=== PATIENT | female | born 1955 | race Caucasian/White ===

== ENCOUNTER 2016-10-25 12:06 | Inpatient (IN) | payer OTHER ==
[2016-10-22 14:54] VITALS: BP 93/66; PULSE 82; TEMP 36.7; O2SAT 93
[~2016-10-25] VITALS: Ht 162.6 cm; Wt 64.0 kg
[~2016-10-25 12:06] MED LIST: ALBU1AER9 INH; FRRS300 PO; NITR1CAP32 PO; NRN100 PO; ONDA4TAB46 PO; PRT/20 PO
[2016-10-25] MEDS ORDERED: SODIUM CHLORIDE 0.9% 1000ML 1,000 ML IV STA ×2 (12:37→14:05)
[2016-10-25] MEDS ORDERED: CITA20TA9 PO (12:59)
[2016-10-25 13:05] LABS: BASO % 0.3 %; BASO ABS # 0.03 K/uL (0-0.2); COMPLETE YES; EOS % 0.9 %; HEMATOCRIT 33.8 % (37-47); IG% 0.2 %; LYMPH % 18.8 %; LYMPH ABS # 1.95 K/uL (1.2-3.4); MEAN CELL VOLUME 94.9 fL (80-100); MEAN CORPUSCULAR HEMOGLOBIN 29.5 pg (25-34); MEAN CORPUSCULAR HGB CONC 31.1 g/dl (32-36); MEAN PLATELET VOLUME 9.7 fL (7.4-10.4); NEUT % 66.8 %; PLATELET COUNT 336 K/uL (130-400); RED BLOOD COUNT 3.56 M/uL (4.2-5.4); WHITE BLOOD COUNT 10.36 K/uL (4.8-10.8)
--- NOTE | 2016-10-25 13:07 | EMERGENCY ROOM VISIT NOTE ---
History Report prepared by Merrill: Kelley Cunha Under the Supervision of: Dr. Xuan Enriquez D.O. First contact with patient: 12:20 Chief Complaint: HYPOTENSION Stated Complaint: LOW BLOOD PRESSURE-SENT IN FROM 'S OFFICE History of Present Illness The patient is a 61 year old female who presents to the Emergency Room with complaints of constant hypotension beginning GARNETTER. The patient has not been feeling well for the past month. She developed sinus congestion and drainage about a month ago. She had mucus draining down the back of her throat. For the past couple of weeks and she has been nauseated and vomiting. She is now dry heaving and sensitive to the smell of certain foods. She has been dizzy for the past couple of days. The patient had a routine appointment with her neurologist today. They took her blood pressure in the office and it was 80/50, so the patient was sent to the ED for further evaluation. The patient states that she has been trying to stay hydrated. She reports diffuse abdominal pain and bloating. The patient rates her pain as an 8/10 in severity. She has followed up with her PCP in the past for abdominal bloating. She had x-rays and states that her PCP told her that her stomach was enlarged. She had both an endoscopy and a colonoscopy that were reported to her as normal. She had a small bowel movement yesterday morning. She denies any blood. Pt denies headache, change in vision, fevers, chest pain, shortness of breath, diarrhea, pain with urination, and melena. Source of History: patient Onset: GARNETTER Position: other (global) Symptom Intensity: BP 80/50 Quality: other (hypotension) Timing: constant Associated Symptoms: + nausea, + vomiting, + abdominal pain, No fevers, No headache, No chest pain, No SOB, No melena, No hematochezia, No diarrhea, No urinary symptoms Review of Systems See HPI for pertinent positives & negatives. A total of 10 systems reviewed and were otherwise negative. Past Medical & Surgical Medical Problems: (1) Abdominal pain (2) Alcohol abuse (3) Anemia (4) COPD, moderate (5) Depression (6) Fatty liver (7) H/O needle biopsy (8) Hepatitis B (9) Hepatitis C, chronic (10) History of seizures (11) Ileus (12) Tuberculosis Surgical Problems: (1) H/O exploratory laparotomy (2) History of appendectomy (3) History of tubal ligation Family History Patient reports no known family medical history. Social History Smoking Status: Current Every Day Smoker Alcohol Use: heavy Drug Use: none Marital Status: in relationship Housing Status: lives with family Occupation Status: unemployed Current/Historical Medications Scheduled Gabapentin (Neurontin), 300 MG PO TID Hyoscyamine Sulfate (Levsin), 0.125 MG PO QID Scheduled PRN Albuterol Hfa (Ventolin Hfa), 2 PUFFS INH Q4 PRN for SOB/Wheezing Allergies Coded Allergies: No Known Allergies (Unverified , 02/05/16) Physical Exam Vital Signs Date Time Temp Pulse Resp B/P (MAP) Pulse Ox O2 Delivery O2 Flow Rate FiO2 10/25/16 20:06 95 99 10/25/16 20:01 92 27 102/68 97 10/25/16 19:56 92 24 97 10/25/16 19:51 91 24 95 10/25/16 19:46 91 26 96 10/25/16 19:41 90 27 94 10/25/16 19:36 88 23 94 10/25/16 19:31 89 25 90/63 95 10/25/16 19:26 89 25 95 10/25/16 19:21 89 24 95 10/25/16 19:16 90 25 95 10/25/16 19:11 89 25 96 10/25/16 19:06 90 28 96 10/25/16 19:01 91 28 95/64 97 10/25/16 18:56 93 26 96 10/25/16 18:51 93 24 96 10/25/16 18:46 94 27 96 10/25/16 18:41 97 23 97 10/25/16 18:36 102 25 98 10/25/16 18:31 96 22 101/78 97 10/25/16 18:26 97 31 97 10/25/16 18:21 99 27 98 10/25/16 18:16 98 26 98 10/25/16 18:11 97 21 97 10/25/16 18:08 98 98 10/25/16 18:06 101 21 97 10/25/16 18:01 106/78 10/25/16 17:50 93 10/25/16 17:41 96 20 10/25/16 17:31 105/89 10/25/16 17:11 94 26 98 10/25/16 17:01 105/70 10/25/16 17:00 95 16 105/70 97 Room Air 10/25/16 17:00 104/72 10/25/16 16:41 99 97 10/25/16 16:01 106/59 10/25/16 15:41 103 24 95 10/25/16 15:36 102 26 95 10/25/16 15:31 105/72 10/25/16 15:13 106/63 10/25/16 15:12 103 18 106/63 95 Room Air 10/25/16 15:06 104 24 95 10/25/16 14:50 111/70 10/25/16 14:36 104 26 92 10/25/16 14:06 103 26 96 10/25/16 13:43 105 10/25/16 13:36 105 33 10/25/16 13:06 109 24 10/25/16 12:36 108 24 10/25/16 12:23 106 10/25/16 12:23 102/71 10/25/16 12:22 109 102/71 10/25/16 12:11 37.0 114 20 97/62 99 Room Air Physical Exam GENERAL: alert, well appearing, well nourished, no distress, non-toxic EYE EXAM: normal conjunctiva, PERRL and EOM's grossly intact OROPHARYNX: no exudate, no erythema, lips, buccal mucosa, and tongue normal and mucous membranes are dry NECK: supple, no nuchal rigidity, no adenopathy, non-tender LUNGS: Clear to auscultation. Normal chest wall mechanics HEART: no murmurs, S1 normal and S2 normal ABDOMEN: abdomen soft, distended and diffusely tender, normo-active bowel sounds , no masses, no rebound or guarding. BACK: Back is symmetrical on inspection and there is no deformity, no midline tenderness, no CVA tenderness. SKIN: Pale, no rashes and no bruising UPPER EXTREMITIES: upper extremities are grossly normal. LOWER EXTREMITIES: No pitting edema. NEURO EXAM: Normal sensorium, cranial nerves II-XII grossly intact, normal speech, no gross weakness of arms, no gross weakness of legs. Medical Decision & Procedures ER Provider Diagnostic Interpretation: Radiology results have been interpreted by the radiologist and reviewed by me. CT OF THE ABDOMEN AND PELVIS WITH CONTRAST CLINICAL HISTORY: Abdominal pain and vomiting. COMPARISON STUDY: KUB February 08, 2016. TECHNIQUE: Following IV administration of 92 mL of Optiray-320, axial images of the abdomen and pelvis were obtained from the lung bases to the proximal femurs. Images were reviewed in the axial, sagittal, and coronal planes. IV contrast was administered without complication. CT DOSE: 271.13 mGy.cm FINDINGS: The liver is markedly abnormal in appearance. Specifically, the liver is mildly enlarged with marked fatty infiltration. The lateral segment is enlarged. There is fissural widening. Note is made of numerous wedge-shaped and linear areas of increased attenuation predominantly within the right hepatic lobe, several of which demonstrate capsular retraction. An index segment 5/6 focus measures 6.2 x 4.2 cm. An index segment 7 lesion measures 5.5 cm. The main, left and right portal veins are patent. There is a small amount of abdominal and pelvic ascites. There is no biliary or pancreatic ductal dilatation. The spleen, adrenal glands and kidneys are normal. There is no evidence for a bowel obstruction. There is mild wall thickening of the cecum and ascending colon. The appendix is not visualized. There is no lymphadenopathy. There is moderate atherosclerotic plaque within the abdominal aorta. No pneumatosis, free air or portal venous gas is present. There are no suspicious osseous lesions. IMPRESSION: 1. Marked fatty infiltration and parenchymal distortion of the liver consistent with cirrhosis. Numerous band-like and wedge-shaped areas of increased attenuation predominantly within the right hepatic lobe, several of which demonstrate capsular retraction. Differential considerations include a benign etiology such as confluent hepatic fibrosis as well as an infiltrative primary liver malignancy such as cholangiocarcinoma or less likely hepatocellular carcinoma. An MRI of the liver may be of benefit in further characterization. 2. Small amount of abdominal and pelvic ascites. 3. Mild wall thickening of the cecum and adjacent colon which could be due to portal hypertension or represent a nonspecific colitis. 4. Several loops of mildly dilated small bowel. No evidence for small bowel obstruction. Electronically signed by: Kvng Hernandez M.D. 10/25/2016 4:46 PM Dictated Date/Time: 10/25/2016 4:20 PM Laboratory Results Test 10/25/16 12:40 10/25/16 13:38 10/25/16 16:30 Immature Granulocyte % (Auto) 0.2 % White Blood Count 10.36 K/uL (4.8-10.8) Red Blood Count 3.56 M/uL (4.2-5.4) Hemoglobin 10.5 g/dL (12.0-16.0) Hematocrit 33.8 % (37-47) Mean Corpuscular Volume 94.9 fL (80-100) Mean Corpuscular Hemoglobin 29.5 pg (25-34) Mean Corpuscular Hemoglobin Concent 31.1 g/dl (32-36) Platelet Count 336 K/uL (130-400) Mean Platelet Volume 9.7 fL (7.4-10.4) Neutrophils (%) (Auto) 66.8 % Lymphocytes (%) (Auto) 18.8 % Monocytes (%) (Auto) 13.0 % Eosinophils (%) (Auto) 0.9 % Basophils (%) (Auto) 0.3 % Neutrophils # (Auto) 6.92 K/uL (1.4-6.5) Lymphocytes # (Auto) 1.95 K/uL (1.2-3.4) Monocytes # (Auto) 1.35 K/uL (0.11-0.59) Eosinophils # (Auto) 0.09 K/uL (0-0.5) Basophils # (Auto) 0.03 K/uL (0-0.2) Immature Granulocyte # (Auto) 0.02 K/uL (0.00-0.02) Troponin I < 0.015 ng/ml (0-0.045) Lipase 69 U/L (73-393) Chemistry Specimen Hemolysis Ethyl Alcohol mg/dL < 3.0 mg/dl (0-3) Urine Color YELLOW Urine Appearance CLEAR (CLEAR) Urine pH 8.5 (4.5-7.5) Urine Specific [place] 1.019 (1.000-1.030) Urine Protein NEG (NEG) Urine Glucose (UA) NEG (NEG) Urine Ketones NEG (NEG) Urine Occult Blood NEG (NEG) Urine Nitrite NEG (NEG) Urine Bilirubin NEG (NEG) Urine Urobilinogen POS (NEG) Urine Leukocyte Esterase SMALL (NEG) Urine WBC (Auto) 1-5 /hpf (0-5) Urine RBC (Auto) 0-4 /hpf (0-4) Urine Hyaline Casts (Auto) 0 /lpf (0-5) Urine Epithelial Cells (Auto) 10-20 /lpf (0-5) Urine Bacteria (Auto) NEG (NEG) Laboratory results per my review. Medications Administered Medications (Trade) Dose Ordered Sig/Shelby Route Start Time Stop Time Status Last Admin Dose Admin Sodium Chloride 1,000 ml @ 999 mls/hr Q1H1M STAT IV 10/25/16 12:37 10/25/16 13:37 DC 10/25/16 12:47 999 MLS/HR Sodium Chloride 1,000 ml @ 999 mls/hr Q1H1M STAT IV 10/25/16 14:05 10/25/16 15:05 DC 10/25/16 14:24 999 MLS/HR Magnesium Sulfate (Magnesium Sulfate) 2 gm NOW STAT IV 10/25/16 14:15 10/25/16 14:18 DC 10/25/16 14:15 2 GM Multivitamins 10 ml/Thiamine HCl 100 mg/Folic Acid 1 mg/Sodium Chloride 1,011.2 ml @ 500 mls/ hr Q2H2M ONCE IV 10/25/16 18:30 10/25/16 20:31 DC 10/25/16 18:42 500 MLS/HR Morphine Sulfate (MoRPHine SULFATE INJ) 4 mg NOW STAT IV 10/25/16 18:23 10/25/16 18:25 DC 10/25/16 18:33 4 MG ECG Indication: weakness Rate (beats per minute): 107 Rhythm: sinus tachycardia Findings: T-wave inversion, no acute ischemic change, other (normal axis, normal intervals, low voltage throughout) ED Course 1220: The patient was evaluated in room A3. A complete history and physical exam was performed. 1237: NSS 1000 ml @ 999 mls/hr IV 1405: NSS 1000 ml @ 999 mls/hr IV 1415: Magnesium sulfate 2 gm IV 1449: I reassessed the patient. Her blood pressure is stable, but she is still slightly tachycardic at 108. I updated her on her results. 181: I reassessed the patient at this time. I discussed the results and treatment plan with the patient. I answered all pertaining questions that she had. She expressed understanding and verbalized agreement. 1823: Morphine sulfate 4 mg IV 1830: Multivitamins 10 ml/Thiamine HCl 100 mg/Folic Acid 1 mg/Sodium Chloride 1011.2 ml @ 500 mls/hr IV 190: I spoke with Belle Burger PA-C. We discussed the patients results and treatment plan. The patient will be evaluated by the [facility] for further management. Medical Decision Differential diagnoses includes but is not limited to gastritis, peptic ulcer disease, GERD, gallbladder disease, pancreatitis, small bowel obstruction, acute coronary syndrome, pericarditis, ischemic bowel, irritable bowel disease, irritable bowel syndrome, appendicitis, diverticulitis, malignancy, hernia, urinary tract infection, torsion, perforation, trauma, infectious. Medication Reconciliation: I attest that I have personally reviewed the patient' s current medication list. Patient with progressively worsening symptoms over the course of the last month. No acute infectious etiology found. Patient found as an outpatient today to be hypotensive at her routine neurology visit for her peripheral neuropathy, which is likely related to her history of alcohol abuse. Patient lives to continued daily drinking but states she has cut back. No evidence of acute alcohol withdrawal in the emergency room. Patient's hypotension and tachycardia improved with 2 L of IV fluids. Patient with persistent abdominal pain and CT scan ordered. Abnormal liver morphology noted and given persistent pain as well as risk, patient admitted for additional evaluation and monitoring. Additional fluids and banana bag were started. No evidence of bacteremia/sepsis, mesenteric ischemia, perforation, vascular etiology. Patient 's anemia stable compared to prior. Patient with hypomagnesemia repleted with IV magnesium in the emergency department. Patient with recent poor by mouth intake, and and clinically dehydrated, likely the reason for her hypotension and tachycardia especially if patient has continued alcohol abuse. Concern patient will need monitoring of her blood counts as she may be falsely normal if she is volume depleted at this time, patient also needs monitoring for risk of acute alcohol withdrawal. No evidence of DTs, no seizure-like activity noted patient denies any history of either. Doubt ACS, tamponade, effusion, PE , dissection. Consults Time Called: 1854 Consulting Physician: Belle Burger PA-C Returned Call: 1900 I spoke with Belle Burger PA-C. We discussed the patients results and treatment plan. The patient will be evaluated by the [facility] for further management. Impression Primary Impression: Hypotension Additional Impressions: Diffuse abdominal pain Alcohol abuse Elevated bilirubin Hypomagnesemia Scribe Attestation The scribe's documentation has been prepared under my direction and personally reviewed by me in its entirety. I confirm that the note above accurately reflects all work, treatment, procedures, and medical decision making performed by me. Departure Information Dispostion Being Evaluated By Hospitalist Referrals No Doctor, Assigned (PCP) Patient Instructions My [facility] Problem Qualifiers Primary Impression: Hypotension Hypotension type: unspecified hypotension type Qualified Codes: I95.9 - Hypotension, unspecified
[2016-10-25 13:30] LABS: ALB/GLOB RATIO 0.6 (0.9-2); ALKALINE PHOSPHATASE 178 U/L (45-117); ALT/SGPT 16 U/L (12-78); AST/SGOT 107 U/L (15-37); BLOOD UREA NITROGEN 6 mg/dl (7-18); BUN/CREATININE RATIO 12.5 (10-20); CALCIUM 8.3 mg/dl (8.5-10.1); CARBON DIOXIDE 26 mmol/L (21-32); CHLORIDE 99 mmol/L (98-107); CREATININE 0.51 mg/dl (0.60-1.20); GLUCOSE 88 mg/dl (70-99); MAGNESIUM 1.3 mg/dl (1.8-2.4); POTASSIUM 3.5 mmol/L (3.5-5.1); SODIUM 137 mmol/L (136-145)
[2016-10-25] MEDS ORDERED: MAGNESIUM SULFATE 1GM / D5W 1 GM BAG IV STA (14:15)
[2016-10-25] MEDS ORDERED: OPTIRAY 320 IV PRN (14:30)
--- NOTE | 2016-10-25 16:47 | DIAGNOSTIC IMAGING REPORT ---
CT OF THE ABDOMEN AND PELVIS WITH CONTRAST CLINICAL HISTORY: Abdominal pain and vomiting. COMPARISON STUDY: KUB February 08, 2016. TECHNIQUE: Following IV administration of 92 mL of Optiray-320, axial images of the abdomen and pelvis were obtained from the lung bases to the proximal femurs. Images were reviewed in the axial, sagittal, and coronal planes. IV contrast was administered without complication. CT DOSE: 271.13 mGy.cm FINDINGS: The liver is markedly abnormal in appearance. Specifically, the liver is mildly enlarged with marked fatty infiltration. The lateral segment is enlarged. There is fissural widening. Note is made of numerous wedge-shaped and linear areas of increased attenuation predominantly within the right hepatic lobe, several of which demonstrate capsular retraction. An index segment 5/6 focus measures 6.2 x 4.2 cm. An index segment 7 lesion measures 5.5 cm. The main, left and right portal veins are patent. There is a small amount of abdominal and pelvic ascites. There is no biliary or pancreatic ductal dilatation. The spleen, adrenal glands and kidneys are normal. There is no evidence for a bowel obstruction. There is mild wall thickening of the cecum and ascending colon. The appendix is not visualized. There is no lymphadenopathy. There is moderate atherosclerotic plaque within the abdominal aorta. No pneumatosis, free air or portal venous gas is present. There are no suspicious osseous lesions. IMPRESSION: 1. Marked fatty infiltration and parenchymal distortion of the liver consistent with cirrhosis. Numerous band-like and wedge-shaped areas of increased attenuation predominantly within the right hepatic lobe, several of which demonstrate capsular retraction. Differential considerations include a benign etiology such as confluent hepatic fibrosis as well as an infiltrative primary liver malignancy such as cholangiocarcinoma or less likely hepatocellular carcinoma. An MRI of the liver may be of benefit in further characterization. 2. Small amount of abdominal and pelvic ascites. 3. Mild wall thickening of the cecum and adjacent colon which could be due to portal hypertension or represent a nonspecific colitis. 4. Several loops of mildly dilated small bowel. No evidence for small bowel obstruction. Electronically signed by: Kvng Hernandez M.D. 10/25/2016 4:46 PM Dictated Date/Time: 10/25/2016 4:20 PM
[2016-10-25 16:51] LABS: URINE APPEARANCE CLEAR (CLEAR); URINE BILIRUBIN NEG (NEG); URINE COLOR YELLOW; URINE NITRITE NEG (NEG); URINE PH 8.5 (4.5-7.5); URINE SPECIFIC GRAVITY 1.019 (1.000-1.030); UROBILINOGEN POS (NEG); ZZUR CULT IF INDIC CLEAN CATCH NO
[2016-10-25 16:53] LABS: MANUAL MICROSCOPIC REQUIRED? NO; REVIEW REQ? NO
[2016-10-25] MEDS ORDERED: MoRPHine SULFATE 4 MG/ML 1 ML CARP\\VIAL IV STA (18:23)
[2016-10-25] MEDS ORDERED: MULTI-VITAMIN INFUSION INJ 10 ML, THIAMINE HCL INJ 100 MG, FoLIC ACID INJ 1 MG in SODIU... IV ONE (18:30)
[2016-10-25] MEDS ORDERED: ACETAMINOPHEN 325 MG TAB PO PRN (20:30)
[2016-10-25] MEDS ORDERED: ONDANSETRON INJ 2 MG/ML 2 ML VIAL IV PRN (20:30)
[2016-10-25] MEDS ORDERED: ALBUTEROL HFA 8 GM INHALER INH PRN (20:45)
[2016-10-25 21:15] VITALS: BP 108/73; PULSE 92; TEMP 36.9; O2SAT 94; Ht 162.6 cm; Wt 64.0 kg
[2016-10-25] MEDS ORDERED: PATIENT'S HEIGHT AND/OR WEIGHT NEEDED SCH (21:30)
[2016-10-25] MEDS ORDERED: GABAPENTIN 600 MG TAB PO STA (21:31)
[2016-10-25] MEDS: SODIUM CHLORIDE 0.9% 1000ML 1,000 ML IV SCH (21:46)
[2016-10-25] MEDS: HYOSCYAMINE SULFATE 0.125 MG SL TAB PO SCH (22:23)
[2016-10-25] MEDS: CHLORDIAZEPOXIDE 10 MG CAP PO SCH (22:23)
[2016-10-25] MEDS: THIAMINE HCL 100 MG TAB PO SCH (22:23)
[2016-10-25] MEDS: NICOTINE 14 MG/24 HR TDSY TD SCH (22:24)
[2016-10-25] MEDS ORDERED: MoRPHine SULFATE 2 MG/ML CARP IV PRN (22:30)
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
[2016-10-26 00:05] LABS: INR 1.1 (0.9-1.1); PROTHROMBIN TIME (PATIENT) 12.1 SECONDS (9.0-12.0)
[2016-10-26] MEDS: GABAPENTIN 600MG Q6H DOSE PO SCH ×2 (03:34→11:07)
[2016-10-26 03:50] VITALS: BP 112/58; PULSE 92; TEMP 36.7; O2SAT 94
[2016-10-26 06:07] LABS: RED BLOOD COUNT 2.98 M/uL (4.2-5.4); WHITE BLOOD COUNT 9.48 K/uL (4.8-10.8)
[2016-10-26 06:08] LABS: HEMATOCRIT 28.5 % (37-47); MEAN CELL VOLUME 95.6 fL (80-100); MEAN CORPUSCULAR HEMOGLOBIN 28.9 pg (25-34); MEAN CORPUSCULAR HGB CONC 30.2 g/dl (32-36); MEAN PLATELET VOLUME 9.5 fL (7.4-10.4); PLATELET COUNT 268 K/uL (130-400)
[2016-10-26 06:49] LABS: ALB/GLOB RATIO 0.7 (0.9-2); ALKALINE PHOSPHATASE 142 U/L (45-117); ALT/SGPT 13 U/L (12-78); AST/SGOT 74 U/L (15-37); BLOOD UREA NITROGEN 6 mg/dl (7-18); BUN/CREATININE RATIO 23.4 (10-20); CARBON DIOXIDE 27 mmol/L (21-32); CHLORIDE 109 mmol/L (98-107); CREATININE 0.24 mg/dl (0.60-1.20); GLUCOSE 62 mg/dl (70-99); MAGNESIUM 1.7 mg/dl (1.8-2.4); POTASSIUM 3.2 mmol/L (3.5-5.1); SODIUM 144 mmol/L (136-145)
[2016-10-26 07:11] VITALS: BP 102/68; PULSE 97; TEMP 37.3; O2SAT 94
[2016-10-26] MEDS ORDERED: PNEUMOCOCCAL POLYSACCHARIDES 25 MCG/0.5 ML VIAL/SYR IM. ONE (08:00)
[2016-10-26] MEDS ORDERED: PNEUMOCOCCAL ADMINISTRATION CHARGE ONE (08:00)
[2016-10-26] MEDS: SODIUM CHLORIDE 0.9% 1000ML 1,000 ML IV SCH ×2 (08:00→22:04)
[2016-10-26] MEDS: HYOSCYAMINE SULFATE 0.125 MG SL TAB PO SCH ×4 (08:00→21:13)
[2016-10-26] MEDS: CHLORDIAZEPOXIDE 10 MG CAP PO SCH ×2 (08:05→21:13)
[2016-10-26] MEDS ORDERED: ENOXAPARIN 40 MG/0.4 ML SYR SC SCH (09:00)
[2016-10-26] MEDS ORDERED: POTASSIUM CHLORIDE 10 MEQ TABCR PO STA (10:27)
[2016-10-26] MEDS ORDERED: MAGNESIUM SULFATE 1GM / D5W 1 GM in PREMIXED IN D5W 100 ML IV SCH (11:00)
[2016-10-26] MEDS: KETOROLAC TROMETHAMINE 30 MG/ML VIAL IV PRN ×2 (11:15→23:26)
[2016-10-26 11:19] VITALS: BP 102/68; PULSE 90; TEMP 36.9; O2SAT 95
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
--- NOTE | 2016-10-26 16:31 | Progress Note ---
Internal Med Progress Note Date of Service: Oct 26, 2016. Provider Documentation: SUBJECTIVE: complains of pain and discomfort in her abdomen no complain of nausea -wants to know if diet could be advanced no sign of alcohol withdrawal no tremors , denies of being anxious OBJECTIVE: Vital Signs-as noted below Exam: General-no sign of distress ENT-NAD Neck-no JVD Lungs-CTA Heart-regular S1/s2 Abdomen-prior healed surgical scar in lower abdomen, + distention /minimum ascites , active bowel sound Extremities- no lower ext edema Neuro-no focal neurological deficit Lab data as noted below. ASSESSMENT & PLAN: HYPOTENSION BP improved with IV fluids Likely due to hypovolemia from poor PO intake, N/V Monitor orthostatic vitals Fall precautions for orthostatic dizziness Monitor in telemetry CHRONIC ALCOHOL ABUSE: ordered for Ativan /Neurontin/Librium as per Alcohol withdrawal protocol no overt s/s of DT Daily thiamine supplement monitor clinically ABDOMINAL PAIN, NAUSEA/ VOMITING CT a/p- findings of cirrhosis, multiple liver lesions ? benign vs. malignancy- MRI liver ordered Known chronic hepatitis C, hx hepatitis B, fatty liver, prior liver bx 2003- moderate to severe steatosis, mild chronic periportal inflammation and minimal lobular inflammation appreciate GI eval tumor marker AFP ordered HYPOMAGNESEMIA due to chronic alcohol abuse Replace and monitor ELEVATED LACTIC ACID Lactic acid 2.4 elevated Lactic acid could be secondary to alcohol abuse /hypotension no evidence of sepsis IVF repeat lactic acid level to see improvement ANEMIA Hx iron deficiency anemia Hg is stable will D/c Lovenox Monitor CBC COPD Not in acute exacerbation Continue home inhaler TOBACCO ABUSE Nicotine patch ordered Cessation counselling once she is feeling better DEPRESSION Currently not on medication Denies suicidal ideation Follow up as outpatient DVT PROPHYLAXIS Lovenox D/mayelin for anemia SCD and teds ambulate FULL CODE DISPOSITION discharge home when medically stable Medicine follow up with Dr Khanna Vital Signs: Date Time Temp Pulse Resp B/P (MAP) Pulse Ox O2 Delivery O2 Flow Rate FiO2 10/26/16 12:00 Room Air 10/26/16 11:19 36.9 90 18 102/68 (79) 95 Room Air 10/26/16 08:00 Room Air 10/26/16 07:11 37.3 97 18 102/68 (79) 94 Room Air 10/26/16 04:00 Room Air 94 10/26/16 03:50 36.7 92 20 112/58 (76) 94 Room Air 10/25/16 23:59 Room Air 10/25/16 21:15 36.9 92 18 108/73 94 Room Air 10/25/16 20:31 98/68 10/25/16 20:06 95 99 10/25/16 20:01 92 27 102/68 97 10/25/16 19:56 92 24 97 10/25/16 19:51 91 24 95 10/25/16 19:46 91 26 96 10/25/16 19:41 90 27 94 10/25/16 19:36 88 23 94 10/25/16 19:31 89 25 90/63 95 10/25/16 19:26 89 25 95 10/25/16 19:21 89 24 95 10/25/16 19:16 90 25 95 10/25/16 19:11 89 25 96 10/25/16 19:06 90 28 96 10/25/16 19:01 91 28 95/64 97 10/25/16 18:56 93 26 96 10/25/16 18:51 93 24 96 10/25/16 18:46 94 27 96 10/25/16 18:41 97 23 97 10/25/16 18:36 102 25 98 10/25/16 18:31 96 22 101/78 97 10/25/16 18:26 97 31 97 10/25/16 18:21 99 27 98 10/25/16 18:16 98 26 98 10/25/16 18:11 97 21 97 10/25/16 18:08 98 98 10/25/16 18:06 101 21 97 10/25/16 18:01 106/78 10/25/16 17:50 93 10/25/16 17:41 96 20 10/25/16 17:31 105/89 10/25/16 17:11 94 26 98 10/25/16 17:01 105/70 10/25/16 17:00 95 16 105/70 97 Room Air 10/25/16 17:00 104/72 10/25/16 16:41 99 97 Lab Results: Results Past 24 Hours Test 10/25/16 23:44 10/26/16 05:23 10/26/16 11:40 Range/Units Prothrombin Time 12.1 9.0-12.0 SECONDS Prothromb Time International Ratio 1.1 0.9-1.1 Activated Partial Thromboplast Time 26.6 21.0-31.0 SECONDS Partial Thromboplastin Ratio 1.0 Lactic Acid Level 2.2 0.4-2.0 mmol/L Magnesium Level 1.8 1.7 1.8-2.4 mg/dl Vitamin B12 Level 500 211-911 pg/mL Folate > 24.00 >5.38 ng/mL White Blood Count 9.48 4.8-10.8 K/uL Red Blood Count 2.98 4.2-5.4 M/uL Hemoglobin 8.6 12.0-16.0 g/dL Hematocrit 28.5 37-47 % Mean Corpuscular Volume 95.6 80-100 fL Mean Corpuscular Hemoglobin 28.9 25-34 pg Mean Corpuscular Hemoglobin Concent 30.2 32-36 g/dl RDW Standard Deviation 70.5 36.4-46.3 fL RDW Coefficient of Variation 20.3 11.5-14.5 % Platelet Count 268 130-400 K/uL Mean Platelet Volume 9.5 7.4-10.4 fL Nucleated RBC Absolute Count (auto) 0.03 0-0 K/uL Nucleated Red Blood Cells % 0.3 % Sodium Level 144 136-145 mmol/L Potassium Level 3.2 3.5-5.1 mmol/L Chloride Level 109 98-107 mmol/L Carbon Dioxide Level 27 21-32 mmol/L Anion Gap 8.0 3-11 mmol/L Blood Urea Nitrogen 6 7-18 mg/dl Creatinine 0.24 0.60-1.20 mg/dl Est Creatinine Clear Calc Drug Dose 215.4 ml/min Estimated GFR () > 150.0 Estimated GFR (Non- 133.9 BUN/Creatinine Ratio 23.4 10-20 Random Glucose 62 70-99 mg/dl Calcium Level 7.0 8.5-10.1 mg/dl Total Bilirubin 1.4 0.2-1 mg/dl Aspartate Amino Transf (AST/SGOT) 74 15-37 U/L Alanine Aminotransferase (ALT/SGPT) 13 12-78 U/L Alkaline Phosphatase 142 45-117 U/L Total Protein 5.3 6.4-8.2 gm/dl Albumin 2.1 3.4-5.0 gm/dl Globulin 3.2 2.5-4.0 gm/dl Albumin/Globulin Ratio 0.7 0.9-2
[2016-10-26] MEDS ORDERED: GADOXETATE DISODIUM (NON-WT BASED PROCEDURE) IV PRN (18:45)
[2016-10-26] MEDS: GABAPENTIN 600MG Q8H DOSE PO SCH (19:01)
[2016-10-26 19:06] VITALS: BP 111/68; PULSE 92; TEMP 36.6; O2SAT 97
--- NOTE | 2016-10-26 19:51 | DIAGNOSTIC IMAGING REPORT ---
MRI LIVER COMBO CLINICAL HISTORY: Abdominal pain and vomiting. Abnormal CT scan. TECHNIQUE: Imaging was performed prior to and following IV contrast injection. 10 cc of intravenous Eovist COMPARISON STUDY: CT scan dated 10/25/2016 FINDINGS: There is a small amount of ascites. There is a small right pleural effusion. There is extensive hepatic steatosis. The bandlike areas of increased T2 signal demonstrate diminished fat compared the remainder of the liver. There is no common bile duct or intrahepatic biliary ductal dilatation. There is borderline narrowing of the right main hepatic duct. No gallbladder abnormalities are visualized. No splenic masses are visualized. No solid renal masses are visualized. There are several areas of capsular retraction within the liver. There are bandlike areas of increased T2 signal throughout the liver. These bandlike areas are increased signal on diffusion-weighted imaging, but also demonstrate increased signal on the ADC map. Dynamic contrast enhanced images demonstrate heterogeneous enhancement of the liver with confluent rounded areas of decreased signal on 20 minute delayed images particularly within the inferior aspect of the right lower lobe. While confluent hepatic fibrosis is strongly favored, an infiltrating liver malignancy such as cholangiocarcinoma cannot be excluded with certainty IMPRESSION: 1. Hepatic steatosis 2. Bandlike areas of increased T2 signal which demonstrate diminished fat compared the remainder the liver. 3. Areas of capsular retraction 4. Increased enhancement of the bandlike areas of increased T2 signal 5. Delayed images demonstrate confluent rounded areas of decreased enhancement, particularly within the inferior aspect of the right lobe of the liver. On in/out of phase imaging, these areas appear to represent areas of hepatic steatosis. 6. While confluent hepatic fibrosis is strongly favored, an infiltrating liver malignancy such as a cholangiocarcinoma cannot be excluded with absolute certainty. 7. Small right pleural effusion. Small amount of ascites. Electronically signed by: Dalton Hassan M.D. 10/26/2016 7:50 PM Dictated Date/Time: 10/26/2016 7:07 PM
[2016-10-26] MEDS: THIAMINE HCL 100 MG TAB PO SCH (21:12)
[2016-10-26 23:15] VITALS: BP 108/66; PULSE 93; TEMP 37; O2SAT 95
[2016-10-27] VITALS (9 sets, daily range): BP systolic 84–118; BP diastolic 57–72; PULSE 65–96; TEMP 36.4–36.9; O2SAT 90–99
[2016-10-27] MEDS: GABAPENTIN 600MG Q8H DOSE PO SCH ×2 (02:10→09:17)
[2016-10-27 05:37] LABS: HEMATOCRIT 28.3 % (37-47); MEAN CELL VOLUME 97.9 fL (80-100); MEAN CORPUSCULAR HEMOGLOBIN 30.1 pg (25-34); MEAN CORPUSCULAR HGB CONC 30.7 g/dl (32-36); MEAN PLATELET VOLUME 9.9 fL (7.4-10.4); PLATELET COUNT 242 K/uL (130-400); RED BLOOD COUNT 2.89 M/uL (4.2-5.4); WHITE BLOOD COUNT 7.63 K/uL (4.8-10.8)
[2016-10-27 06:12] LABS: ALT/SGPT 16 U/L (12-78); AST/SGOT 93 U/L (15-37); BLOOD UREA NITROGEN 6 mg/dl (7-18); BUN/CREATININE RATIO 26.6 (10-20); CALCIUM 7.1 mg/dl (8.5-10.1); CARBON DIOXIDE 24 mmol/L (21-32); CHLORIDE 112 mmol/L (98-107); CREATININE 0.24 mg/dl (0.60-1.20); GLUCOSE 63 mg/dl (70-99); MAGNESIUM 1.8 mg/dl (1.8-2.4); POTASSIUM 3.4 mmol/L (3.5-5.1); SODIUM 144 mmol/L (136-145)
[2016-10-27 06:14] LABS: ALKALINE PHOSPHATASE 152 U/L (45-117)
[2016-10-27] MEDS: HYOSCYAMINE SULFATE 0.125 MG SL TAB PO SCH ×4 (06:41→21:59)
[2016-10-27] MEDS: NICOTINE 14 MG/24 HR TDSY TD SCH (07:42)
[2016-10-27] MEDS: SODIUM CHLORIDE 0.9% 1000ML 1,000 ML IV SCH (07:43)
[2016-10-27] MEDS: CHLORDIAZEPOXIDE 10 MG CAP PO SCH ×2 (07:46→21:58)
--- NOTE | 2016-10-27 09:30 | Gastroenterology Progress Note ---
Progress Note Date of Service: Oct 27, 2016 Subjective Pt evaluation today including: conversation w/ patient, physical exam, chart review, lab review, review of studies, review of inpatient medication list Ms. Masterson is a 61 yr old female admitted for hypotension. She has a long hx if increased alcohol intake and was drinking heavily just prior to admission. Transaminases are elevated with AST much higher than ALT. T bili and Alk Phos at upper end of normal. INR 1.1. Suggestion of fibrosis on liver imaging. No evidence of obstruction. MRI with capsular retraction of the right lobe of the liver and slight narrowing of the right hepatic duct. Today pt tells me that "a few years ago," she fell, had broken ribs that lacerated her liver. She was hospitalized at [place] for about 3 weeks. No surgery required, bleeding stopped. Regarding her symptoms that cause hospitalization, she is much better with IV fluids, eating a low salt diet well, becoming much more alert and articulate.Abdominal pain resolved after passing a large BM. Review of Systems Constitutional: No fever Respiratory: No cough Cardiac: No chest pain Abdomen: No pain, No nausea, No vomiting, No diarrhea, No GI bleeding Female : No dysuria Neuro: No memory loss Psych: No depression symptoms Heme: No abnormal bleeding/bruising Endo: No fatigue Skin: No rash, No jaundice Medications Current Inpatient Medications Medications (Trade) Dose Ordered Sig/Shelby Route Start Time Stop Time Status Last Admin Dose Admin Ioversol (Optiray 320) 100 ml UD PRN IV 10/25/16 14:30 10/29/16 14:29 Acetaminophen (Tylenol Tab) 650 mg Q4H PRN PO 10/25/16 20:30 11/24/16 20:29 Ondansetron HCl (Zofran Inj) 4 mg Q6H PRN IV 10/25/16 20:30 11/24/16 20:29 Sodium Chloride 1,000 ml @ 100 mls/hr Q10H IV 10/25/16 20:30 11/24/16 20:29 10/27/16 07:43 100 MLS/HR Thiamine HCl (Vitamin B-1 Tab) 100 mg Q24H PO 10/25/16 21:00 11/24/16 20:59 10/26/16 21:12 100 MG Chlordiazepoxide (Librium Cap) 10 mg BID PO 10/25/16 21:00 11/24/16 20:59 10/27/16 07:46 10 MG Albuterol (Ventolin Hfa Inhaler) 2 puffs Q4 PRN INH 10/25/16 20:45 11/24/16 20:44 Hyoscyamine Sulfate (Levsin Tab) 0.125 mg ACHS PO 10/25/16 21:00 11/24/16 20:59 10/27/16 06:41 0.125 MG Nicotine (Nicoderm Cq 14MG Patch) 1 patch QAM TD 10/26/16 09:00 11/25/16 08:59 10/27/16 07:42 1 PATCH Miscellaneous (Remove Nicoderm Patch) 1 ea HS N/A 10/26/16 21:00 11/25/16 20:59 10/26/16 21:13 1 EA Gabapentin (Neurontin Tab) 600 mg Q8H PO 10/26/16 18:00 10/27/16 10:01 10/27/16 09:17 600 MG Gabapentin (Neurontin Tab) 600 mg Q12H PO 10/27/16 22:00 10/28/16 10:01 Gabapentin (Neurontin Tab) 600 mg Q24H PO 10/29/16 10:00 10/29/16 10:01 Ketorolac Tromethamine (Toradol Inj) 30 mg Q6H PRN IV 10/25/16 22:30 10/30/16 22:29 10/26/16 23:26 30 MG Gadoxetate Disodium (Eovist (Non-Wt Based Procedure)) 10 ml UD PRN IV 10/26/16 18:45 10/30/16 18:44 Objective Vital Signs Date Time Temp Pulse Resp B/P (MAP) Pulse Ox O2 Delivery O2 Flow Rate FiO2 10/27/16 08:58 96 19 94/64 (74) 99 Room Air 10/27/16 08:55 93 18 94/63 (73) 97 Room Air 10/27/16 08:53 82 18 97/67 (77) 99 Room Air 10/27/16 08:00 Room Air 10/27/16 07:25 36.5 73 22 99/72 (81) 97 Room Air 10/27/16 04:00 Room Air 10/27/16 03:43 36.6 74 19 94/68 (77) 96 Room Air 84 92/62 (72) 92 84/62 (69) 10/26/16 23:59 Room Air 10/26/16 23:15 37.0 93 18 108/66 (80) 95 Room Air 10/26/16 20:00 Room Air 10/26/16 19:06 36.6 92 18 111/68 (82) 97 Room Air 10/26/16 16:00 Room Air 10/26/16 12:00 Room Air 10/26/16 11:19 36.9 90 18 102/68 (79) 95 Room Air Physical Exam General Appearance: no apparent distress ENT: pharynx normal Neck: supple, thyroid normal, no JVD Respiratory/Chest: lungs clear Cardiovascular: regular rate, rhythm, no JVD, no murmur Abdomen: non tender, soft, + distended (minimal) Extremities: non-tender Neurologic/Psych: alert, normal mood/affect, oriented x 3 Skin: no jaundice Laboratory Results Last 24 Hours Test 10/26/16 11:40 10/27/16 05:20 White Blood Count 7.63 K/uL Red Blood Count 2.89 M/uL Hemoglobin 8.7 g/dL Hematocrit 28.3 % Mean Corpuscular Volume 97.9 fL Mean Corpuscular Hemoglobin 30.1 pg Mean Corpuscular Hemoglobin Concent 30.7 g/dl RDW Standard Deviation 73.2 fL RDW Coefficient of Variation 20.4 % Platelet Count 242 K/uL Mean Platelet Volume 9.9 fL Sodium Level 144 mmol/L Potassium Level 3.4 mmol/L Chloride Level 112 mmol/L Carbon Dioxide Level 24 mmol/L Anion Gap 8.0 mmol/L Blood Urea Nitrogen 6 mg/dl Creatinine 0.24 mg/dl Est Creatinine Clear Calc Drug Dose 215.4 ml/min Estimated GFR () > 150.0 Estimated GFR (Non- 133.9 BUN/Creatinine Ratio 26.6 Random Glucose 63 mg/dl Lactic Acid Level 1.4 mmol/L Calcium Level 7.1 mg/dl Magnesium Level 1.8 mg/dl Total Bilirubin 1.4 mg/dl Direct Bilirubin 1.1 mg/dl Aspartate Amino Transf (AST/SGOT) 93 U/L Alanine Aminotransferase (ALT/SGPT) 16 U/L Alkaline Phosphatase 152 U/L Total Protein 5.2 gm/dl Albumin 2.0 gm/dl Assessment and Plan Ms. Masterson is a 61 yr old admitted with hypotension and abdominal pain, both resolved. Her pain was likely caused by constipation and her hypotension by her increased alcohol intake and po intake of nutritious foods and water. Her liver imaging changes are likely due to fatty liver/fibrosis (w/o evidence of cirrhosis) from a long hx of increased alcohol intake as well as prior trauma to the liver. HCV OP serology reviewed. Positive in 1999 but very low viral load (40), then negative several times since then suggesting that she cleared the virus spontaneously. Hep B surface antibody positive suggestive of immunity from vaccination. Plan: 1. Records from [facility] requested. 2. 2 Gram sodium diet. 3. Complete alcohol abstention discussed with the pt. She says she does not plan to drink however, she does not think she needs rehab. When talking about her symptoms, she does not believe that the symptoms that brought her in were related to alcohol intake and when talking with her about a low salt diet, she tells me that she needs salt or she will faint. 4. Will recheck HCV quantitative. 5. Plan for OP GI f/u. Would consider liver bx to definitively r/o hepatic malignancy, after obtaining records regarding liver trauma from [place]. I saw and evalauted the patient. CT / MRI findings likely related to prior blunt trauma to the liver. I would suggest a repeat HCV RNA, MRI in 3 months, Bentyl 10 mg bid and Miralax 17 gm per day. Patient should f/u with her regular GI provider, Dr. Zafar in 3 months.
[2016-10-27] MEDS: KETOROLAC TROMETHAMINE 30 MG/ML VIAL IV PRN ×2 (10:05→22:11)
[2016-10-27 11:54] LABS: AFP TUMOR MARKER SERUM 3.1 NG/ML (<6.1)
[2016-10-27] MEDS ORDERED: POLYETHYLENE (MIRALAX) 17 GM PACK PO ONE (12:20)
--- NOTE | 2016-10-27 14:31 | Progress Note ---
Internal Med Progress Note Date of Service: Oct 27, 2016. Provider Documentation: SUBJECTIVE: complains of gas and abdominal discomfort did not had any bowel movement since admission no nausea tolerating diet well OBJECTIVE: Vital Signs-as noted below Exam: General-no sign of distress ENT-NAD Neck-no JVD Lungs-CTA Heart-regular S1/s2 Abdomen-prior healed surgical scar in lower abdomen, + distention /minimum ascites , active bowel sound Extremities- no lower ext edema Neuro-no focal neurological deficit Lab data as noted below. ASSESSMENT & PLAN: HYPOTENSION possible baseline BP in 90-100 will d/c IVF today no complain of dizzy spell CHRONIC ALCOHOL ABUSE: ordered for Ativan /Neurontin/Librium as per Alcohol withdrawal protocol no overt s/s of DT Daily thiamine supplement monitor clinically pt is counselled repeatedly for alcohol abstinence ABDOMINAL PAIN, NAUSEA/ VOMITING CT a/p- findings of cirrhosis, multiple liver lesions ? benign vs. malignancy- MRI liver : 1. Hepatic steatosis 2. Bandlike areas of increased T2 signal which demonstrate diminished fat compared the remainder the liver. 3. Areas of capsular retraction 4. Increased enhancement of the bandlike areas of increased T2 signal 5. Delayed images demonstrate confluent rounded areas of decreased enhancement, particularly within the inferior aspect of the right lobe of the liver. On in/out of phase imaging, these areas appear to represent areas of hepatic steatosis. 6. While confluent hepatic fibrosis is strongly favored, an infiltrating liver malignancy such as a cholangiocarcinoma cannot be excluded with absolute certainty. 7. Small right pleural effusion. Small amount of ascites. Known chronic hepatitis C, hx hepatitis B, fatty liver, prior liver bx 2003- moderate to severe steatosis, mild chronic periportal inflammation and minimal lobular inflammation appreciate GI eval possible finding in MRI of liver due to old scar for trauma Hep C serology ordered tumor marker AFP ordered stable to be discharged home will need out follow up with GI HYPOMAGNESEMIA due to chronic alcohol abuse Replaced ELEVATED LACTIC ACID resolved, normal level today elevated Lactic acid could be secondary to alcohol abuse /hypotension no evidence of sepsis IVF D/mayelin repeat lactic acid level to see improvement CONSTIPATION /ABDOMINAL DISTENTION Ordered for bowel regimen ANEMIA Hx iron deficiency anemia Hg is stable will D/c Lovenox Monitor CBC COPD Not in acute exacerbation Continue home inhaler TOBACCO ABUSE Nicotine patch ordered Cessation counselling once she is feeling better DEPRESSION Currently not on medication Denies suicidal ideation Follow up as outpatient DVT PROPHYLAXIS Lovenox D/mayelin for anemia SCD and teds ambulate FULL CODE DISPOSITION possible discharge home tomorrow Medicine follow up with Dr Khanna Vital Signs: Date Time Temp Pulse Resp B/P (MAP) Pulse Ox O2 Delivery O2 Flow Rate FiO2 10/27/16 11:47 Room Air 10/27/16 11:25 36.8 88 18 96/57 (70) 96 Room Air 10/27/16 08:58 96 19 94/64 (74) 99 Room Air 10/27/16 08:55 93 18 94/63 (73) 97 Room Air 10/27/16 08:53 82 18 97/67 (77) 99 Room Air 10/27/16 08:00 Room Air 10/27/16 07:25 36.5 73 22 99/72 (81) 97 Room Air 10/27/16 04:00 Room Air 10/27/16 03:43 36.6 74 19 94/68 (77) 96 Room Air 84 92/62 (72) 92 84/62 (69) 10/26/16 23:59 Room Air 10/26/16 23:15 37.0 93 18 108/66 (80) 95 Room Air 10/26/16 20:00 Room Air 10/26/16 19:06 36.6 92 18 111/68 (82) 97 Room Air 10/26/16 16:00 Room Air Lab Results: Results Past 24 Hours Test 10/27/16 05:20 10/27/16 12:20 Range/Units White Blood Count 7.63 4.8-10.8 K/uL Red Blood Count 2.89 4.2-5.4 M/uL Hemoglobin 8.7 12.0-16.0 g/dL Hematocrit 28.3 37-47 % Mean Corpuscular Volume 97.9 80-100 fL Mean Corpuscular Hemoglobin 30.1 25-34 pg Mean Corpuscular Hemoglobin Concent 30.7 32-36 g/dl RDW Standard Deviation 73.2 36.4-46.3 fL RDW Coefficient of Variation 20.4 11.5-14.5 % Platelet Count 242 130-400 K/uL Mean Platelet Volume 9.9 7.4-10.4 fL Sodium Level 144 136-145 mmol/L Potassium Level 3.4 3.5-5.1 mmol/L Chloride Level 112 98-107 mmol/L Carbon Dioxide Level 24 21-32 mmol/L Anion Gap 8.0 3-11 mmol/L Blood Urea Nitrogen 6 7-18 mg/dl Creatinine 0.24 0.60-1.20 mg/dl Est Creatinine Clear Calc Drug Dose 215.4 ml/min Estimated GFR () > 150.0 Estimated GFR (Non- 133.9 BUN/Creatinine Ratio 26.6 10-20 Random Glucose 63 70-99 mg/dl Lactic Acid Level 1.4 0.4-2.0 mmol/L Calcium Level 7.1 8.5-10.1 mg/dl Magnesium Level 1.8 1.8-2.4 mg/dl Total Bilirubin 1.4 0.2-1 mg/dl Direct Bilirubin 1.1 0-0.2 mg/dl Aspartate Amino Transf (AST/SGOT) 93 15-37 U/L Alanine Aminotransferase (ALT/SGPT) 16 12-78 U/L Alkaline Phosphatase 152 45-117 U/L Total Protein 5.2 6.4-8.2 gm/dl Albumin 2.0 3.4-5.0 gm/dl
--- NOTE | 2016-10-27 14:34 | Discharge Instructions ---
Discharge Instructions Date of Service Oct 27, 2016. Admission Reason for Admission: Abdominal Pain, Hypotension Discharge Discharge Diagnosis / Problem: ABDOMINAL PAIN /CHRONIC ALCOHOL ABUSE Discharge Goals Goal(s): Improve disease control, Diagnostic testing Activity Recommendations Activity Limitations: resume your previous activity . Instructions / Follow-Up Instructions / Follow-Up HOSPITAL FOLLOW UP WITH DR QUESADA ON October @ 9: [address] QUESADA GASTROENTEROLOGY FOLLOW UP WITH DR LR IN 3 MONTHS , PLEASE CALL OFFICE FOR APPOINTMENT NEED COMPLETE ABSTINENCE FORM ALCOHOL Current Hospital Diet Patient's current hospital diet: Low Sodium Diet (2gm Na) Discharge Diet Recommended Diet: Low Sodium Diet (2gm Na) Pending Studies Studies pending at discharge: no Medical Emergencies . Who to Call and When: Medical Emergencies: If at any time you feel your situation is an emergency, please call 911 immediately. . Non-Emergent Contact Non-Emergency issues call your: Primary Care Provider . . "Provider Documentation" section prepared by Judith Gupta. . VTE Core Measure Inpt VTE Proph given/why not?: Trisha Hernandez, SCD's
[2016-10-27] MEDS ORDERED: LACTULOSE SYRUP 30 GM/45 ML UDP PO ONE (15:00)
[2016-10-27] MEDS: DICYCLOMINE HCL 10 MG CAP PO SCH ×2 (16:14→21:58)
[2016-10-27] MEDS ORDERED: DOCUSATE SODIUM 100 MG CAP PO ONE (19:45)
[2016-10-27] MEDS ORDERED: BISACODYL 5 MG TABEC PO PRN (19:45)
[2016-10-27] MEDS ORDERED: BISACODYL 5 MG TABEC PO ONE (19:45)
[2016-10-27] MEDS: SENNA 8.6 MG TAB PO SCH (21:00)
[2016-10-27] MEDS: THIAMINE HCL 100 MG TAB PO SCH (22:00)
[2016-10-27] MEDS: GABAPENTIN 600MG Q12H DOSE PO SCH (22:00)
[2016-10-27] MEDS: DOCUSATE SODIUM 100 MG CAP PO SCH (22:42)
[2016-10-28 00:05] VITALS: BP_SYST 85; BP_SYST 90; BP_SYST 97; BP_DIAS 53; BP_DIAS 64; BP_DIAS 65
[2016-10-28] MEDS: HYOSCYAMINE SULFATE 0.125 MG SL TAB PO SCH ×3 (06:14→16:22)
[2016-10-28] MEDS: DICYCLOMINE HCL 10 MG CAP PO SCH ×3 (06:14→16:22)
[2016-10-28 07:13] VITALS: BP 86/52; PULSE 62; TEMP 36.5; O2SAT 92
[2016-10-28 07:57] LABS: HEMATOCRIT 31.4 % (37-47); MEAN CELL VOLUME 98.4 fL (80-100); MEAN CORPUSCULAR HEMOGLOBIN 29.8 pg (25-34); MEAN CORPUSCULAR HGB CONC 30.3 g/dl (32-36); MEAN PLATELET VOLUME 9.3 fL (7.4-10.4); PLATELET COUNT 250 K/uL (130-400); RED BLOOD COUNT 3.19 M/uL (4.2-5.4); WHITE BLOOD COUNT 8.07 K/uL (4.8-10.8)
[2016-10-28] MEDS: NICOTINE 14 MG/24 HR TDSY TD SCH (08:10)
[2016-10-28] MEDS: CHLORDIAZEPOXIDE 10 MG CAP PO SCH (08:13)
[2016-10-28] MEDS: DOCUSATE SODIUM 100 MG CAP PO SCH (08:15)
[2016-10-28] MEDS: SENNA 8.6 MG TAB PO SCH (08:16)
[2016-10-28 08:34] LABS: BUN/CREATININE RATIO 13.8 (10-20); CREATININE 0.42 mg/dl (0.60-1.20); MAGNESIUM 1.8 mg/dl (1.8-2.4); POTASSIUM 3.4 mmol/L (3.5-5.1)
[2016-10-28] MEDS ORDERED: POLYETHYLENE (MIRALAX) 17 GM PACK PO SCH (09:00)
[2016-10-28] MEDS: GABAPENTIN 600MG Q12H DOSE PO SCH (09:41)
[2016-10-28] MEDS: KETOROLAC TROMETHAMINE 30 MG/ML VIAL IV PRN (13:58)
[2016-10-28 15:28] VITALS: BP 81/56; PULSE 93; TEMP 36.4; O2SAT 94
[2016-10-28] MEDS ORDERED: MoRPHine SULFATE 2 MG/ML CARP IV STA (16:02)
--- NOTE | 2016-10-28 16:03 | Progress Note ---
Internal Med Progress Note Date of Service: Oct 28, 2016. Provider Documentation: SUBJECTIVE: Had multiple bowel movement no nausea or vomiting complains of pain on shoulder /back , sides of abdomen -chronic stable to be discharged home today OBJECTIVE: Vital Signs-as noted below Exam: General-no sign of distress ENT-NAD Neck-no JVD Lungs-CTA Heart-regular S1/s2 Abdomen-prior healed surgical scar in lower abdomen, + distention /minimum ascites , active bowel sound Extremities- no lower ext edema Neuro-no focal neurological deficit Lab data as noted below. ASSESSMENT & PLAN: HYPOTENSION chronically hypotensive -possible due to Chronic alcohol liver disease / Cirrhosis no symptom ambulating independently in pool way CHRONIC ALCOHOL ABUSE: ordered for Ativan /Neurontin/Librium as per Alcohol withdrawal protocol no overt s/s of DT Daily thiamine supplement monitor clinically pt is counselled repeatedly for alcohol abstinence does not want to go to rehab ABDOMINAL PAIN, NAUSEA/ VOMITING symptom has resolved ' tolerating diet well CT a/p- findings of cirrhosis, multiple liver lesions ? benign vs. malignancy- MRI liver : 1. Hepatic steatosis 2. Bandlike areas of increased T2 signal which demonstrate diminished fat compared the remainder the liver. 3. Areas of capsular retraction 4. Increased enhancement of the bandlike areas of increased T2 signal 5. Delayed images demonstrate confluent rounded areas of decreased enhancement, particularly within the inferior aspect of the right lobe of the liver. On in/out of phase imaging, these areas appear to represent areas of hepatic steatosis. 6. While confluent hepatic fibrosis is strongly favored, an infiltrating liver malignancy such as a cholangiocarcinoma cannot be excluded with absolute certainty. 7. Small right pleural effusion. Small amount of ascites. Known chronic hepatitis C, hx hepatitis B, fatty liver, prior liver bx 2003- moderate to severe steatosis, mild chronic periportal inflammation and minimal lobular inflammation appreciate GI eval possible finding in MRI of liver due to old scar for trauma Hep C serology ordered tumor marker AFP ordered stable to be discharged home Out follow up with GI dr Quintana in 3 months HYPOMAGNESEMIA due to chronic alcohol abuse Replaced ELEVATED LACTIC ACID resolved, normal level today elevated Lactic acid could be secondary to alcohol abuse /hypotension no evidence of sepsis IVF D/mayelin CONSTIPATION /ABDOMINAL DISTENTION resolved -multiple bowel movement with stool softener /laxative ANEMIA Hx iron deficiency anemia Hg is stable will D/c Lovenox Monitor CBC COPD Not in acute exacerbation Continue home inhaler TOBACCO ABUSE Nicotine patch ordered Cessation counselling once she is feeling better DEPRESSION Currently not on medication Denies suicidal ideation Follow up as outpatient DVT PROPHYLAXIS Lovenox D/mayelin for anemia SCD and teds ambulate FULL CODE DISPOSITION discharge home today Medicine follow up with Dr Khanna Vital Signs: Date Time Temp Pulse Resp B/P (MAP) Pulse Ox O2 Delivery O2 Flow Rate FiO2 10/28/16 15:28 36.4 93 20 81/56 (64) 94 Room Air 10/28/16 08:00 Room Air 10/28/16 07:13 36.5 62 16 86/52 (63) 92 Room Air 10/28/16 00:05 85/53 (64) 97/65 (76) 90/64 (73) 10/28/16 00:00 Room Air 10/27/16 23:29 36.9 92 20 88/59 (69) 96 Room Air Lab Results: Results Past 24 Hours Test 10/28/16 07:45 Range/Units White Blood Count 8.07 4.8-10.8 K/uL Red Blood Count 3.19 4.2-5.4 M/uL Hemoglobin 9.5 12.0-16.0 g/dL Hematocrit 31.4 37-47 % Mean Corpuscular Volume 98.4 80-100 fL Mean Corpuscular Hemoglobin 29.8 25-34 pg Mean Corpuscular Hemoglobin Concent 30.3 32-36 g/dl RDW Standard Deviation 76.4 36.4-46.3 fL RDW Coefficient of Variation 21.1 11.5-14.5 % Platelet Count 250 130-400 K/uL Mean Platelet Volume 9.3 7.4-10.4 fL Sodium Level 143 136-145 mmol/L Potassium Level 3.4 3.5-5.1 mmol/L Chloride Level 111 98-107 mmol/L Carbon Dioxide Level 21 21-32 mmol/L Anion Gap 11.0 3-11 mmol/L Blood Urea Nitrogen 6 7-18 mg/dl Creatinine 0.42 0.60-1.20 mg/dl Est Creatinine Clear Calc Drug Dose 123.1 ml/min Estimated GFR () 129.1 Estimated GFR (Non- 111.4 BUN/Creatinine Ratio 13.8 10-20 Random Glucose 57 70-99 mg/dl Calcium Level 8.0 8.5-10.1 mg/dl Magnesium Level 1.8 1.8-2.4 mg/dl
--- NOTE | 2016-10-28 16:07 | Discharge Summary ---
Discharge Summary Date of Service Oct 28, 2016. Discharge Summary Admission Date: Oct 25, 2016 at 20:21 Discharge Date: Oct 28, 2016 Discharge Disposition: Home Principal Diagnosis: ABDOMINAL PAIN /CHRONIC ALCOHOL ABUSE Procedures: MRI liver : 1. Hepatic steatosis 2. Bandlike areas of increased T2 signal which demonstrate diminished fat compared the remainder the liver. 3. Areas of capsular retraction 4. Increased enhancement of the bandlike areas of increased T2 signal 5. Delayed images demonstrate confluent rounded areas of decreased enhancement, particularly within the inferior aspect of the right lobe of the liver. On in/out of phase imaging, these areas appear to represent areas of hepatic steatosis. 6. While confluent hepatic fibrosis is strongly favored, an infiltrating liver malignancy such as a cholangiocarcinoma cannot be excluded with absolute certainty. 7. Small right pleural effusion. Small amount of ascites. Consultations: [facility] Medication Reconciliation Continued Medications: Albuterol Hfa (Ventolin Hfa) 200 Puffs/52751 Mcg Aers 2 PUFFS INH Q4 PRN for SOB/Wheezing Gabapentin (Neurontin) 300 Mg Cap 300 MG PO TID Hyoscyamine Sulfate (Levsin) 0.125 Mg Tab 0.125 MG PO QID BEFORE MEALS AND AT BEDTIME. Referrals At Discharge Follow up Referrals: [facility] Referral - Within 3 Months with Genia Lr, DO Admission Information HPI (per Admitting provider): This is a 61 year old female with PMH of chronic hepatitis C, hepatitis B, fatty liver, alcohol abuse, COPD, tobacco abuse, depression, and other problems listed below who was sent to the ED from neurology clinic for hypotension. Patient was seen in routine follow up for neuropathy today by Dr. Farmer and noted to have BP of 88/50. Patient admits to lightheadedness with standing for past few weeks. States she fell a few weeks ago due to lightheadedness. No LOC. Patient reports 1 month history of bloating, diffuse abdominal pain, nausea and vomiting. She reports not being able to eat because the thought of food makes her nauseous. Has been drinking liquids. Has been constipated. From Epic trend patient has lost 30 lb in past 1 year. Patient reports drinking vodka on a daily basis- not forthcoming about the amount, but states she has gone through DT's in the past. Not feeling shaky yet. Last drink was yesterday. Was ill a few weeks ago with postnasal drip, cough, chest tightness, dyspnea with exertion , all of which resolved. Was not evaluated by a physician for that. States she is depressed for a long time. Used to be on a medication, does not recall what med, but stopped taking it because "it made me not care about anything". No suicidal ideation. Denies fever, rhinorrhea, sore throat, cough, chest pain, SOB , hematemesis, hematochezia, melena, dysuria, frequency, OLMEDO, recent seizure. No sick contact. Patient had EGD and colonoscopy in February 2016 which were normal. Physical Exam (per Admitting): General Appearance: WD/WN, no apparent distress, + pertinent finding (alert 61 year old female, lying in bed, no distress) Head: normocephalic, atraumatic Eyes: normal inspection, PERRL, sclerae normal ENT: hearing grossly normal, pharynx normal Neck: supple, trachea midline Respiratory/Chest: lungs clear, normal breath sounds, no respiratory distress Cardiovascular: regular rate, rhythm, no murmur Abdomen/GI: normal bowel sounds, + pertinent finding (protuberant but soft, diffusely tender, scar in epigastrium) Extremities/Musculoskelatal: no calf tenderness, no pedal edema Neurologic/Psych: alert, oriented x 3, + depressed affect Skin: normal color, warm/dry Hospital Course HYPOTENSION chronically hypotensive -possible due to Chronic alcohol liver disease / Cirrhosis no symptom ambulating independently in pool way CHRONIC ALCOHOL ABUSE: ordered for Ativan /Neurontin/Librium as per Alcohol withdrawal protocol no overt s/s of DT Daily thiamine supplement monitor clinically pt is counselled repeatedly for alcohol abstinence does not want to go to rehab ABDOMINAL PAIN, NAUSEA/ VOMITING symptom has resolved ' tolerating diet well CT a/p- findings of cirrhosis, multiple liver lesions ? benign vs. malignancy- MRI liver : 1. Hepatic steatosis 2. Bandlike areas of increased T2 signal which demonstrate diminished fat compared the remainder the liver. 3. Areas of capsular retraction 4. Increased enhancement of the bandlike areas of increased T2 signal 5. Delayed images demonstrate confluent rounded areas of decreased enhancement, particularly within the inferior aspect of the right lobe of the liver. On in/out of phase imaging, these areas appear to represent areas of hepatic steatosis. 6. While confluent hepatic fibrosis is strongly favored, an infiltrating liver malignancy such as a cholangiocarcinoma cannot be excluded with absolute certainty. 7. Small right pleural effusion. Small amount of ascites. Known chronic hepatitis C, hx hepatitis B, fatty liver, prior liver bx 2003- moderate to severe steatosis, mild chronic periportal inflammation and minimal lobular inflammation appreciate GI eval possible finding in MRI of liver due to old scar for trauma Hep C serology ordered tumor marker AFP ordered stable to be discharged home Out follow up with GI dr Quintana in 3 months HYPOMAGNESEMIA due to chronic alcohol abuse Replaced ELEVATED LACTIC ACID resolved, normal level today elevated Lactic acid could be secondary to alcohol abuse /hypotension no evidence of sepsis IVF D/mayelin CONSTIPATION /ABDOMINAL DISTENTION resolved -multiple bowel movement with stool softener /laxative ANEMIA Hx iron deficiency anemia Hg is stable will D/c Lovenox Monitor CBC COPD Not in acute exacerbation Continue home inhaler TOBACCO ABUSE Nicotine patch ordered Cessation counselling once she is feeling better DEPRESSION Currently not on medication Denies suicidal ideation Follow up as outpatient DVT PROPHYLAXIS Lovenox D/mayelin for anemia SCD and teds ambulate FULL CODE DISPOSITION discharge home today Medicine follow up with Dr Quesada Total time spent on discharge = 35 MINS This includes examination of the patient, discharge planning, medication reconciliation, and communication with other providers. Discharge Instructions DI: Medical v4 Discharge Instructions Date of Service Oct 27, 2016. Admission Reason for Admission: Abdominal Pain, Hypotension Discharge Discharge Diagnosis / Problem: ABDOMINAL PAIN /CHRONIC ALCOHOL ABUSE Discharge Goals Goal(s): Improve disease control, Diagnostic testing Activity Recommendations Activity Limitations: resume your previous activity . Instructions / Follow-Up Instructions / Follow-Up HOSPITAL FOLLOW UP WITH DR QUESADA ON October @ 9: [address] QUESADA GASTROENTEROLOGY FOLLOW UP WITH DR LR IN 3 MONTHS , PLEASE CALL OFFICE FOR APPOINTMENT NEED COMPLETE ABSTINENCE FORM ALCOHOL Current Hospital Diet Patient's current hospital diet: Low Sodium Diet (2gm Na) Discharge Diet Recommended Diet: Low Sodium Diet (2gm Na) Pending Studies Studies pending at discharge: no Medical Emergencies . Who to Call and When: Medical Emergencies: If at any time you feel your situation is an emergency, please call 911 immediately. . Non-Emergent Contact Non-Emergency issues call your: Primary Care Provider . . "Provider Documentation" section prepared by Judith Gupta. . VTE Core Measure Inpt VTE Proph given/why not?: Trisha Hernandez, SCD's Additional Copies To Jeremy Maki M.D. Suvock, Emily T., DO
[2016-10-28 16:26] VITALS: BP 91/58
[2016-10-28 17:48] VITALS: BP 91/58; PULSE 93; TEMP 36.4; O2SAT 94
[2016-10-29] MEDS ORDERED: GABAPENTIN 600MG Q24H DOSE PO SCH (10:00)
[2016-10-31 09:04] LABS: HEPATITIS C VIRAL RNA BY PCR <15 NOT DETECTED IU/ML (<15); HEPATITIS C VIRAL RNA(LOG) PCR <1.18 NOT DETECTED LOG IU/ML (<1.18)
[2017-02-13] MEDS ORDERED: HYOS1TAB PO (12:59)
[2017-02-13] MEDS ORDERED: VNTHFA/IN INH (12:59)
[2017-02-13] MEDS ORDERED: GABA-113 PO (12:59)
[2017-02-18] MEDS ORDERED: MCRK20 PO (14:27)
[2017-02-18] MEDS ORDERED: SPRN100 PO (14:27)
[2017-02-18] MEDS ORDERED: SYN25 PO (14:27)
[2017-02-18] MEDS ORDERED: THM100 PO (14:27)
[2017-02-18] MEDS ORDERED: LSX40 PO (14:27)
[2017-02-18] MEDS ORDERED: FLV1 PO (14:27)
[2017-02-19] MEDS ORDERED: CPR500 PO (14:40)
[2017-03-16] MEDS ORDERED: SPR25 PO (15:16)
[2017-03-16] MEDS ORDERED: PRMT25 PO (15:16)
[2017-03-16] MEDS ORDERED: SODI650T8 PO (15:16)
[2017-03-16] MEDS ORDERED: LSX20 PO (15:16)
[2017-03-16] MEDS ORDERED: LCTS240 PO (15:16)
[2017-03-16] MEDS ORDERED: NYSS5 PO (15:16)
[2017-04-01] MEDS ORDERED: FRS/40 PO (13:41)
[2017-04-01] MEDS ORDERED: SPIR50TA3 PO (13:41)
== END 2016-10-28 18:30 | disposition home or self-care (01) | DRG 315 ==
LOC: C.EDB 12:08 → C.2T 20:21 → ENRESERV 20:35 → C.MS2W 10-27 15:32
PROVIDERS: ADMIT Internal Medicine; ATTEND Hospitalist
DX: I95.9 Hypotension, unspecified (principal); B19.10 Unspecified viral hepatitis B without hepatic coma; R10.9 Unspecified abdominal pain; F10.10 Alcohol abuse, uncomplicated; B18.2 Chronic viral hepatitis C; K76.0 Fatty (change of) liver, not elsewhere classified; J44.9 Chronic obstructive pulmonary disease, unspecified; F17.210 Nicotine dependence, cigarettes, uncomplicated; F32.9 Major depressive disorder, single episode, unspecified; R74.8 Abnormal levels of other serum enzymes; R11.2 Nausea with vomiting, unspecified; K59.00 Constipation, unspecified; D64.9 Anemia, unspecified; R26.89 Other abnormalities of gait and mobility; E83.42 Hypomagnesemia; Z86.2 Personal history of diseases of the blood and blood-forming organs and certain disorders involving the immune mechanism; Z86.69 Personal history of other diseases of the nervous system and sense organs; Z86.11 Personal history of tuberculosis; Z23 Encounter for immunization; Z79.899 Other long term (current) drug therapy

== ENCOUNTER 2017-02-13 14:36 | Inpatient (IN) | payer OTHER ==
[~2017-02-13] VITALS: Ht 162.6 cm; Wt 61.1 kg
[~2017-02-13 14:36] MED LIST changes: -ALBU1AER9 INH; -FRRS300 PO; +GABA-113 PO; +HYOS1TAB PO; -NITR1CAP32 PO; -NRN100 PO; -ONDA4TAB46 PO; -PRT/20 PO; +VNTHFA/IN INH
[2017-02-13 16:06] LABS: BASO % 0.6 %; BASO ABS # 0.07 K/uL (0-0.2); COMPLETE YES; EOS % 0.9 %; HEMATOCRIT 37.5 % (37-47); IG% 0.6 %; LYMPH % 15.9 %; LYMPH ABS # 1.86 K/uL (1.2-3.4); MEAN CELL VOLUME 104.2 fL (80-100); MEAN CORPUSCULAR HEMOGLOBIN 33.6 pg (25-34); MEAN CORPUSCULAR HGB CONC 32.3 g/dl (32-36); MEAN PLATELET VOLUME 10.1 fL (7.4-10.4); MONO % 10.9 %; NEUT % 71.1 %; PLATELET COUNT 224 K/uL (130-400); WHITE BLOOD COUNT 11.71 K/uL (4.8-10.8)
[2017-02-13] MEDS ORDERED: SODIUM CHLORIDE 0.9% 1000ML 1,000 ML IV STA (16:13)
[2017-02-13 16:24] LABS: BUN/CREATININE RATIO 34.5 (10-20); CALCIUM 7.9 mg/dl (8.5-10.1); CREATININE 0.74 mg/dl (0.60-1.20); POTASSIUM 3.6 mmol/L (3.5-5.1)
[2017-02-13 16:26] LABS: ALB/GLOB RATIO 0.3 (0.9-2)
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
--- NOTE | 2017-02-13 16:36 | DIAGNOSTIC IMAGING REPORT ---
ABDOMEN 2VIEW W/PA CHEST RTN HISTORY: 61 years-old Female abdominal pain, sob acute generalized abdominal pain with abdominal distention and shortness of breath. COMPARISON: KUB radiograph 02/08/2016, chest radiograph 11/02/2015 TECHNIQUE: Portable upright AP view of the chest FINDINGS: Cardiomediastinal and hilar silhouettes are within normal limits. There is atherosclerosis of the aorta. No pneumothorax or pleural effusion. Linear subsegmental left basilar atelectasis/scarring is unchanged. The bones are grossly intact. IMPRESSION: No acute cardiopulmonary process. The above report was generated using voice recognition software. It may contain grammatical, syntax or spelling errors. Electronically signed by: Gary Rodriguez M.D. 02/13/2017 4:34 PM Dictated Date/Time: 02/13/2017 4:32 PM
[2017-02-13] MEDS ORDERED: OPTIRAY 320 IV PRN (17:45)
--- NOTE | 2017-02-13 18:25 | DIAGNOSTIC IMAGING REPORT ---
ABD/PELVIS IV CONTRAST ONLY HISTORY: 61 years-old Female abd pain, distension acute generalized abdominal pain with distention. COMPARISON: CT abdomen and pelvis 10/25/2016, MR liver 10/26/2016 TECHNIQUE: Multiple axial CT images of the abdomen and pelvis were obtained following the intravenous administration of 160 mL Optiray 320. No oral contrast was used. A dose lowering technique was used consistent with the principals of AMADOU. FINDINGS: Linear subsegmental atelectasis or scarring involves seen for segment lingula. No pneumoperitoneum identified. Imaged inferior cardiac chambers are unremarkable with coronary arterial calcifications. Marked heterogeneity of the liver is again seen with areas of capsular retraction, parenchymal distortion and marked fatty infiltration. Mild marginal nodularity is also seen. There is progressive atrophy of the liver compared to prior study 10/25/2016. Large volume intra-abdominal and intrapelvic ascites is noted. The spleen, pancreas, gallbladder and adrenal glands are within normal limits. Kidneys, ureters and urinary bladder are unremarkable. Uterus and adnexa are within normal limits. There is extensive atherosclerosis of the abdominal aorta without aneurysm. No bulky retroperitoneal adenopathy. There is mild wall thickening the distal esophagus, nonspecific. Wall thickening involving several loops of small bowel are seen without dilation. Additionally, there is mild wall thickening noted involving the transverse colon and splenic flexure. Diffuse body wall edema noted. No suspicious lytic or blastic bony lesions. IMPRESSION: 1. Marked heterogeneity of the liver with areas of capsular attraction, parenchymal distortion, atrophy and marked fatty infiltration are again seen with progressive atrophy from prior study. Additionally, there is large volume of intra-abdominal and intrapelvic ascites. 2. Multiple loops of small bowel demonstrate wall thickening with wall thickening also seen within the distribution of the splenic flexure and transverse colon suggesting sequela of hypoproteinemia. Enteritis/colitis could cause a similar appearance. Correlate with clinical history and laboratory values. The above report was generated using voice recognition software. It may contain grammatical, syntax or spelling errors. Electronically signed by: Gary Rodriguez M.D. 02/13/2017 6:23 PM Dictated Date/Time: 02/13/2017 6:16 PM
[2017-02-13] MEDS ORDERED: MoRPHine SULFATE 2 MG/ML CARP IV STA (19:29)
[2017-02-13] MEDS ORDERED: THIAMINE HCL 100 MG/ML 2 ML VIAL IV STA (19:30)
[2017-02-13] MEDS ORDERED: THIAMINE HCL INJ 100 MG in SYRINGE 9 ML IV STA (19:49)
[2017-02-13] MEDS ORDERED: ALBUMIN HUMAN 25% 12.5 GM/50 ML VIAL IV ONE (20:15)
[2017-02-13] MEDS ORDERED: ONDANSETRON INJ 2 MG/ML 2 ML VIAL IV PRN (20:30)
[2017-02-13] MEDS ORDERED: ACETAMINOPHEN 325 MG TAB PO PRN (20:30)
[2017-02-13] MEDS ORDERED: LORAZEPAM 2 MG/ML 1 ML VIAL IV PRN (20:30)
[2017-02-13] MEDS ORDERED: LEVALBUTEROL/IPRATROPIUM NEB INH PRN (20:45)
[2017-02-13] MEDS ORDERED: HYDROmorphone INJ 0.5 MG/0.5 ML SYR IV PRN (20:45)
[2017-02-13] MEDS ORDERED: LEVALBUTEROL 1.25MG/0.5ML NEB INH PRN (20:45)
[2017-02-13] MEDS ORDERED: IPRATROPIUM BROMIDE NEB SOLN 0.02% 2.5 ML VIAL INH PRN (20:45)
[2017-02-13 21:20] LABS: INR 1.2 (0.9-1.1); PROTHROMBIN TIME (PATIENT) 13.4 SECONDS (9.0-12.0)
[2017-02-13 21:50] LABS: MAGNESIUM 1.4 mg/dl (1.8-2.4)
[2017-02-13 22:00] VITALS: BP 80/59; PULSE 100; TEMP 37.1; O2SAT 98; Ht 162.6 cm; Wt 61.1 kg
[2017-02-13 22:40] LABS: URINE APPEARANCE CLOUDY (CLEAR); URINE COLOR DK YELLOW; URINE NITRITE NEG (NEG); URINE PH 5.5 (4.5-7.5); URINE SPECIFIC GRAVITY > 1.045 (1.000-1.030); UROBILINOGEN NEG (NEG)
[2017-02-13 22:41] LABS: URINE BILIRUBIN 1+ (NEG)
[2017-02-13 22:42] LABS: MANUAL MICROSCOPIC REQUIRED? YES; REVIEW REQ? NO
[2017-02-13 22:55] LABS: URINE AMORPHOUS SEDIMENT PRESENT (NONE PRSENT); URINE BACTERIA 4+ (NEG)
[2017-02-13 22:58] LABS: ZZUR CULT IF INDIC CLEAN CATCH YES
[2017-02-13] MEDS: GABAPENTIN 300 MG CAP PO SCH (23:11)
[2017-02-13] MEDS: ALBUMIN HUMAN 25% 12.5 GM/50 ML VIAL IV SCH (23:46)
[2017-02-14] VITALS (18 sets, daily range): BP systolic 78–145; BP diastolic 55–90; PULSE 61–111; TEMP 36.4–37.7; O2SAT 92–98
[2017-02-14] MEDS: CEFTRIAXONE SOD INJ 1 GM in DEXTROSE 5% ADD-VANTAGE 50ML 50 ML IV SCH (00:10)
[2017-02-14] MEDS: MAGNESIUM SULFATE 1GM / D5W 1 GM in PREMIXED IN D5W 100 ML IV SCH ×2 (00:42→02:21)
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
[2017-02-14] MEDS ORDERED: POTASSIUM CHLORIDE 10 MEQ TABCR PO STA (03:10)
[2017-02-14] MEDS ORDERED: FUROSEMIDE INJ 20 MG in SYRINGE 0 ML IV ONE (03:30)
[2017-02-14] MEDS: ALBUMIN HUMAN 25% 12.5 GM/50 ML VIAL IV SCH ×4 (05:07→23:59)
[2017-02-14 06:46] LABS: BASO % 0.6 %; BASO ABS # 0.05 K/uL (0-0.2); COMPLETE YES; EOS % 1.1 %; HEMATOCRIT 32.3 % (37-47); IG% 0.6 %; LYMPH ABS # 1.51 K/uL (1.2-3.4); MEAN CELL VOLUME 104.9 fL (80-100); MEAN CORPUSCULAR HEMOGLOBIN 34.4 pg (25-34); MEAN CORPUSCULAR HGB CONC 32.8 g/dl (32-36); MEAN PLATELET VOLUME 10.5 fL (7.4-10.4); MONO % 9.3 %; NEUT % 71.4 %; PLATELET COUNT 176 K/uL (130-400); RED BLOOD COUNT 3.08 M/uL (4.2-5.4)
[2017-02-14 07:13] LABS: BUN/CREATININE RATIO 24.8 (10-20); CALCIUM 8.3 mg/dl (8.5-10.1); CREATININE 0.86 mg/dl (0.60-1.20); POTASSIUM 3.3 mmol/L (3.5-5.1)
[2017-02-14] MEDS ORDERED: LORAZEPAM 2 MG/ML 1 ML VIAL IV PRN (08:30)
[2017-02-14] MEDS: GABAPENTIN 300 MG CAP PO SCH ×3 (08:34→20:53)
[2017-02-14] MEDS: THIAMINE HCL 100 MG TAB PO SCH (08:35)
[2017-02-14] MEDS: ENOXAPARIN 40 MG/0.4 ML SYR SC SCH (08:35)
[2017-02-14] MEDS: FLINTSTONES COMPLETE CHEWABLE TAB PO SCH (09:00)
[2017-02-14] MEDS ORDERED: ALBUMIN HUMAN 25% 12.5 GM/50 ML VIAL IV ONE ×3 (10:30→14:30)
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
--- NOTE | 2017-02-14 14:05 | DIAGNOSTIC IMAGING REPORT ---
PARACENTESIS ABDOMEN W/IMAGING CLINICAL HISTORY: 61 years-old Female presenting with ascites. COMPARISON: CT from 02/13/2017. PROCEDURE: The procedure and its risks, benefits and alternatives were discussed with the patient, and written informed consent was obtained. A timeout was performed to confirm patient identity. Limited ultrasound of the abdomen was performed to determine a safe needle entry site. The right lower quadrant was prepped and draped in the usual aseptic fashion. 1% Lidocaine was used for local anesthesia. A paracentesis needle-sheath was inserted into the peritoneal space using ultrasound guidance. The needle was removed and the sheath was connected to tubing and a vacuum suction device. A total of 5 L of clear yellow ascites was aspirated. The sheath was removed, and a dressing applied. The patient tolerated the procedure well. No immediate complications. IMPRESSION: Ultrasound-guided diagnostic and therapeutic paracentesis with aspiration of 5 L of ascites. Electronically signed by: Kendrick Myers M.D. 02/14/2017 2:04 PM Dictated Date/Time: 02/14/2017 2:03 PM
[2017-02-14 15:35] LABS: PERIT FL WBC 95 /uL (0-300); PERITONEAL FLUID RBC < 3000 /uL
--- NOTE | 2017-02-14 18:42 | Progress Note ---
Internal Med Progress Note Date of Service: Feb 14, 2017. Provider Documentation: SUBJECTIVE: denies of any abdominal pain , minimum SOB very poor historian , need to asked few times before able to get an answer mentions that she has her abdomen swelled up for past few days though " I was getting fat " initially did not had any discomfort expect for past 1-2 days started to experience severe abdominal pain and SOB does not remember having fever or chills at home admits of drinking Vodka -reluctant to say how much she has been drinking was not able to drink alcohol for past 2 days due to abdominal pain at present does not feel anxious or jittery does not recall if she had severe withdrawal form ETOH in past OBJECTIVE: Vital Signs-as noted below Exam: General-chronically ill appearing Eyes-mildly icteric sclera ENT-NAD Neck-no JVD Lungs-diminished, no rales or wheeze noted Heart-regular S1/S2 Abdomen-moderately distended , soft, non tender Extremities- no lower ext edema Neuro-appears to be anxious , no focal deficit Lab data as noted below. ASSESSMENT & PLAN: CHRONIC LIVER DISEASE /ALCOHOLIC CIRRHOSIS /HX OF HEP C presented with worsening of Ascites /abdominal pain /SOB : CT abdomen /pelvis : 1. Marked heterogeneity of the liver with areas of capsular attraction, parenchymal distortion, atrophy and marked fatty infiltration are again seen with progressive atrophy from prior study. Additionally, there is large volume of intra-abdominal and intrapelvic ascites. 2. Multiple loops of small bowel demonstrate wall thickening with wall thickening also seen within the distribution of the splenic flexure and transverse colon suggesting sequela of hypoproteinemia. Enteritis/colitis could cause a similar appearance. Correlate with clinical history and laboratory values. -appreciate in put form GI -no evidence of Sepsis -pt continued with empiric Abx with Rocephin F/U urine and blood cx. -s/p paracentesis of ~5 L of ascitic fluid -specimen sent for gram stain and culture -cont Diuresis Lasix 40mg daily, Spironolactone 100mg daily, low Na diet. -pt is counselled for strict ETOH abstinence UTI : urine culture -Gram negative bacilli -cont on Rocephin LONG HX OF ETOH ABUSE : drinks Vodka -has long hx of heavy drinking -cont on DT /ETOH withdrawal protocol -monitor tele -Per GI : Strict ETOH cessation advised. case management eval & referral to ETOH cessation program vs inpt rehab. - social service consulted -pt is not very receptive for ETOH rehab FULL CODE DVT PROPHYLAXIS SC Lovenox DISPOSITION expected to be discharged home when medically stable Medicine follow up with Dr Khanna will need continued GI follow up Social service consulted for DC planning called pt's Significant other Hubre Thorpe -left message Vital Signs: Date Time Temp Pulse Resp B/P (MAP) Pulse Ox O2 Delivery O2 Flow Rate FiO2 02/14/17 17:55 37.4 101 20 95/59 (71) 95 Nasal Cannula 2.0 02/14/17 16:18 36.8 109 19 93/58 (70) 93 Nasal Cannula 2.0 02/14/17 15:55 Nasal Cannula 2.0 02/14/17 13:53 36.5 105 20 81/55 (64) 96 Nasal Cannula 2.0 92/61 (71) 02/14/17 12:17 106 94/61 (72) 97 Nasal Cannula 1.5 02/14/17 12:00 Nasal Cannula 2.0 02/14/17 11:42 37.1 107 20 91/59 (70) 95 Nasal Cannula 2.0 02/14/17 11:10 37.1 20 107/72 (84) 95 Nasal Cannula 2.0 02/14/17 10:48 36.9 107 20 94/64 (74) 96 Nasal Cannula 2.0 02/14/17 08:00 Nasal Cannula 2.0 02/14/17 07:33 96 Nasal Cannula 02/14/17 07:30 36.8 96 14 78/57 (64) 96 Nasal Cannula 02/14/17 04:00 96 Room Air 02/14/17 04:00 36.6 98 20 95/65 (75) 95 Nasal Cannula 2.0 02/14/17 00:14 36.4 100 18 121/57 (78) 92 02/14/17 00:00 98 Room Air 02/13/17 22:00 37.1 100 20 80/59 98 Room Air 98.0 02/13/17 21:02 103 73/50 98 02/13/17 21:01 02/13/17 20:51 104 17 99 02/13/17 20:46 84/57 02/13/17 20:36 108 23 97 02/13/17 20:31 71/56 02/13/17 20:29 79/52 02/13/17 20:24 110 18 96 02/13/17 20:16 68/53 02/13/17 20:09 107 26 97 02/13/17 20:01 78/49 02/13/17 19:54 107 20 97 02/13/17 19:51 77/38 02/13/17 19:44 91/67 02/13/17 19:39 110 22 98 02/13/17 19:30 81/64 02/13/17 19:24 117 26 02/13/17 19:20 103/89 02/13/17 19:09 119 23 02/13/17 18:54 105 23 95 Lab Results: Results Past 24 Hours Test 02/13/17 19:50 02/13/17 21:01 02/13/17 21:54 02/13/17 22:21 Range/Units Bedside Glucose 85 70-90 mg/dl Lactic Acid Level 1.2 0.4-2.0 mmol/L Magnesium Level 1.4 1.8-2.4 mg/dl Procalcitonin 1.06 0-0.5 ng/ml Thyroid Stimulating Hormone (TSH) 15.000 0.300-4.500 uIu/ml Free Thyroxine 1.57 0.80-1.60 ng/dl Urine Color DK YELLOW Urine Appearance CLOUDY CLEAR Urine pH 5.5 4.5-7.5 Urine Specific [place] > 1.045 1.000-1.030 Urine Protein NEG NEG Urine Glucose (UA) NEG NEG Urine Ketones TRACE NEG Urine Occult Blood NEG NEG Urine Nitrite NEG NEG Urine Bilirubin 1+ NEG Urine Urobilinogen NEG NEG Urine Leukocyte Esterase SMALL NEG Urine WBC (Auto) 0-5 /hpf Urine RBC (Auto) 0-4 /hpf Urine Hyaline Casts (Auto) 0-5 /lpf Urine Epithelial Cells (Auto) 0-5 /lpf Urine Bacteria (Auto) NEG Urine RBC 10-30 0-4 /hpf Urine WBC 10-30 0-5 /hpf Urine Epithelial Cells >30 0-5 /lpf Urine Renal Cells 0-5 FEW /lpf Urine Amorphous Sediment PRESENT NONE PRSENT Urine Bacteria 4+ NEG Urine Yeast (Auto) NONE PRSENT Ethyl Alcohol mg/dL < 3.0 0-3 mg/dl Test 02/14/17 00:00 02/14/17 06:19 Range/Units Peritoneal Fluid Color YELLOW Peritoneal Fluid Appearance HAZY Peritoneal Fluid WBC 95 0-300 /uL Peritoneal Fluid RBC < 3000 /uL Peritoneal Fld Mononuclear WBCs (%) 81.0 % Peritoneal Fld Polynuclear WBCs (%) 19.0 % Peritoneal Fluid Total Protein 1.1 g/dl Peritoneal Fluid Albumin < 0.6 g/dl Peritoneal Fluid Glucose 98 mg/dl White Blood Count 8.90 4.8-10.8 K/uL Red Blood Count 3.08 4.2-5.4 M/uL Hemoglobin 10.6 12.0-16.0 g/dL Hematocrit 32.3 37-47 % Mean Corpuscular Volume 104.9 80-100 fL Mean Corpuscular Hemoglobin 34.4 25-34 pg Mean Corpuscular Hemoglobin Concent 32.8 32-36 g/dl Platelet Count 176 130-400 K/uL Mean Platelet Volume 10.5 7.4-10.4 fL Neutrophils (%) (Auto) 71.4 % Lymphocytes (%) (Auto) 17.0 % Monocytes (%) (Auto) 9.3 % Eosinophils (%) (Auto) 1.1 % Basophils (%) (Auto) 0.6 % Neutrophils # (Auto) 6.36 1.4-6.5 K/uL Lymphocytes # (Auto) 1.51 1.2-3.4 K/uL Monocytes # (Auto) 0.83 0.11-0.59 K/uL Eosinophils # (Auto) 0.10 0-0.5 K/uL Basophils # (Auto) 0.05 0-0.2 K/uL RDW Standard Deviation 59.7 36.4-46.3 fL RDW Coefficient of Variation 15.7 11.5-14.5 % Immature Granulocyte % (Auto) 0.6 % Immature Granulocyte # (Auto) 0.05 0.00-0.02 K/uL Sodium Level 135 136-145 mmol/L Potassium Level 3.3 3.5-5.1 mmol/L Chloride Level 98 98-107 mmol/L Carbon Dioxide Level 24 21-32 mmol/L Anion Gap 13.0 3-11 mmol/L Blood Urea Nitrogen 21 7-18 mg/dl Creatinine 0.86 0.60-1.20 mg/dl Est Creatinine Clear Calc Drug Dose 60.1 ml/min Estimated GFR () 85.1 Estimated GFR (Non- 73.4 BUN/Creatinine Ratio 24.8 10-20 Random Glucose 96 70-99 mg/dl Calcium Level 8.3 8.5-10.1 mg/dl Magnesium Level 2.0 1.8-2.4 mg/dl Total Triiodothyronine 0.58 0.60-1.81 ng/ml Microbiology Results 02/13/17 Blood Culture, Received Pending 02/13/17 Blood Culture, Received Pending 02/13/17 Urine Culture - Preliminary, Resulted Escherichia Coli 02/14/17 Acid Fast Stain, Received Pending 02/14/17 Mycobacterial Culture, Received Pending 02/14/17 Gram Stain, Received Pending 02/14/17 Bacterial Culture, Received Pending
[2017-02-14] MEDS ORDERED: NURSING VERBAL MED ORDER ONE (19:15)
[2017-02-14] MEDS ORDERED: VANCOMYCIN CONSULT ACTIVE PRN (20:15)
--- NOTE | 2017-02-14 20:15 | Pharmacy Progress Note ---
Pharmacy Abx Initial Consult Date of Service Feb 14, 2017. Pharmacy Dosing Scope Date of Consult: 02/14/17 Consultation requested by: Dr. Velasco Pharmacy is consulted to initiate vancomycin IV dosing therapy, order appropriate labs and adjust drug dose/frequency. Subjective The patient is a 61 year old female admitted on Feb 13, 2017 at 20:13. Objective Height (Feet): 5 Height (Inches): 4.00 Weight (Kilograms): 63.300 Vital Signs (Past 12Hrs) Vital Signs Past 12 Hours Date Time Temp Pulse Resp B/P (MAP) Pulse Ox O2 Delivery O2 Flow Rate FiO2 02/14/17 18:41 37.5 111 18 102/63 (76) 95 Nasal Cannula 2.0 02/14/17 17:55 37.4 101 20 95/59 (71) 95 Nasal Cannula 2.0 02/14/17 16:18 36.8 109 19 93/58 (70) 93 Nasal Cannula 2.0 02/14/17 16:00 Nasal Cannula 2.0 02/14/17 15:55 Nasal Cannula 2.0 02/14/17 13:53 36.5 105 20 81/55 (64) 96 Nasal Cannula 2.0 92/61 (71) 02/14/17 12:17 106 94/61 (72) 97 Nasal Cannula 1.5 02/14/17 12:00 Nasal Cannula 2.0 02/14/17 11:42 37.1 107 20 91/59 (70) 95 Nasal Cannula 2.0 02/14/17 11:10 37.1 20 107/72 (84) 95 Nasal Cannula 2.0 02/14/17 10:48 36.9 107 20 94/64 (74) 96 Nasal Cannula 2.0 Lab Results (24Hrs) Laboratory Tests (24 Hours) Test 02/13/17 21:01 02/14/17 06:19 Lactic Acid Level 1.2 mmol/L (0.4-2.0) Procalcitonin 1.06 ng/ml (0-0.5) H White Blood Count 8.90 K/uL (4.8-10.8) Red Blood Count 3.08 M/uL (4.2-5.4) L Hemoglobin 10.6 g/dL (12.0-16.0) L Hematocrit 32.3 % (37-47) L Mean Corpuscular Volume 104.9 fL (80-100) H Mean Corpuscular Hemoglobin 34.4 pg (25-34) H Mean Corpuscular Hemoglobin Concent 32.8 g/dl (32-36) Platelet Count 176 K/uL (130-400) Mean Platelet Volume 10.5 fL (7.4-10.4) H Neutrophils (%) (Auto) 71.4 % Lymphocytes (%) (Auto) 17.0 % Monocytes (%) (Auto) 9.3 % Eosinophils (%) (Auto) 1.1 % Basophils (%) (Auto) 0.6 % Neutrophils # (Auto) 6.36 K/uL (1.4-6.5) Lymphocytes # (Auto) 1.51 K/uL (1.2-3.4) Monocytes # (Auto) 0.83 K/uL (0.11-0.59) H Eosinophils # (Auto) 0.10 K/uL (0-0.5) Basophils # (Auto) 0.05 K/uL (0-0.2) Micro Results Date/Time Source Procedure Growth Status 02/13/17 22:21 Blood Blood Culture - Preliminary Gram Positive Cocci Resulted 02/13/17 21:01 Blood Blood Culture Pending Received 02/13/17 21:54 Urine , Clean Catch Urine Culture - Preliminary Escherichia Coli Resulted 02/14/17 00:00 Ascities Fluid Acid Fast Stain Pending Received 02/14/17 00:00 Ascities Fluid Mycobacterial Culture Pending Received 02/14/17 00:00 Ascities Fluid Gram Stain Pending Received 02/14/17 00:00 Ascities Fluid Bacterial Culture Pending Received Risk Factors for Resistance * Hospitalization for 48 hours or more within the past 90 days * Antimicrobial use within the last 90 days (currently on Rocephin for SBP prophylaxis) Assessment & Plan Assessment 61 year old female with a PMH of cirrhosis with hepatitis C, COPD, and seizures admitted with ascites. One of two blood cultures is currently positive. Plan vancomycin for treatment of one positive blood culture for Gram positive cocci Vancomycin IV * Loading dose: 1500 mg (25 mg/kg) * Maintenance dose: 1000 mg IV (15 mg/kg) every 14 hours (population pharmacokinetics suggest a half-life of 13.86 hr) * Goal trough level for bacteremia : 15 to 20 mcg/mL * Trough level ordered for 02/16/17 prior to 1600 dose Pharmacy will continue to follow and will adjust dose/frequency as necessary. Thank you.
[2017-02-14] MEDS ORDERED: VANCOMYCIN INJ 1,500 MG in SODIUM CHLORIDE 0.9% 500ML 500 ML IV ONE (20:30)
[2017-02-14] MEDS: NICOTINE 21 MG/24 HR TDSY EXT SCH (20:52)
[2017-02-15] VITALS (13 sets, daily range): BP systolic 84–116; BP diastolic 50–75; PULSE 98–113; TEMP 36.4–37.7; O2SAT 94–96
[2017-02-15] MEDS: CEFTRIAXONE SOD INJ 1 GM in DEXTROSE 5% ADD-VANTAGE 50ML 50 ML IV SCH ×2 (00:06→23:13)
[2017-02-15] MEDS: ALBUMIN HUMAN 25% 12.5 GM/50 ML VIAL IV SCH ×4 (06:02→23:13)
[2017-02-15] MEDS: LEVOTHYROXINE 25 MCG TAB PO SCH (06:02)
[2017-02-15 08:28] LABS: BUN/CREATININE RATIO 19.6 (10-20); CALCIUM 8.4 mg/dl (8.5-10.1); CREATININE 0.69 mg/dl (0.60-1.20); POTASSIUM 3.6 mmol/L (3.5-5.1)
[2017-02-15] MEDS: THIAMINE HCL 100 MG TAB PO SCH (08:48)
[2017-02-15] MEDS: GABAPENTIN 300 MG CAP PO SCH ×3 (08:48→21:14)
[2017-02-15] MEDS: FUROSEMIDE 40 MG TAB PO SCH (08:48)
[2017-02-15] MEDS: FLINTSTONES COMPLETE CHEWABLE TAB PO SCH (08:49)
[2017-02-15] MEDS: POTASSIUM CHLORIDE 20 MEQ TABCR PO SCH (08:49)
[2017-02-15] MEDS: SPIRONOLACTONE 100 MG TAB PO SCH (08:49)
[2017-02-15] MEDS: NICOTINE 21 MG/24 HR TDSY EXT SCH (08:50)
[2017-02-15] MEDS: ENOXAPARIN 40 MG/0.4 ML SYR SC SCH (08:51)
--- NOTE | 2017-02-15 11:09 | Gastroenterology Progress Note ---
Progress Note Date of Service: Feb 15, 2017 Subjective Pt evaluation today including: conversation w/ patient, physical exam, chart review, lab review, review of inpatient medication list Pt c/o abd distension again. Yesterday 5L ascites fluid removed, cell ct s/o signs of SBP but she's already on Cefepime before her tap. Urine culture growing Ecoli. Blood growing GPC. She is started on Vancomycin Review of Systems Constitutional: No fever, No chills Respiratory: No cough, No shortness of breath Cardiac: No chest pain Abdomen: No pain, No nausea, No vomiting, No diarrhea Medications Current Inpatient Medications Medications (Trade) Dose Ordered Sig/Shelby Route Start Time Stop Time Status Last Admin Dose Admin Ioversol (Optiray 320) 116 ml UD PRN IV 02/13/17 17:45 02/17/17 17:44 Enoxaparin Sodium (Lovenox Inj) 40 mg Q24H SC 02/14/17 09:00 03/16/17 08:59 02/15/17 08:51 40 MG Acetaminophen (Tylenol Tab) 325 mg Q6H PRN PO 02/13/17 20:30 03/15/17 20:29 Oxycodone HCl (Roxicodone Immediate Rel Tab) 5 mg Q4H PRN PO 02/13/17 20:30 02/27/17 20:29 Ondansetron HCl (Zofran Inj) 4 mg Q6H PRN IV 02/13/17 20:30 03/15/17 20:29 Gabapentin (Neurontin Cap) 300 mg TID PO 02/13/17 21:00 03/15/17 20:59 02/15/17 08:48 300 MG Thiamine HCl (Vitamin B-1 Tab) 100 mg QAM PO 02/14/17 09:00 03/16/17 08:59 02/15/17 08:48 100 MG Multivitamins (Flintstones Complete Tab) 1 tab QAM PO 02/14/17 09:00 03/16/17 08:59 02/15/17 08:49 1 TAB Folic Acid (Folvite Tab) 1 mg QAM PO 02/14/17 09:00 03/16/17 08:59 02/15/17 08:49 1 MG Hydromorphone HCl (Dilaudid Inj) 0.5 mg Q4H PRN IV 02/13/17 20:45 02/27/17 20:44 Ipratropium [place] (Atrovent 0.02% 0.5MG/2.5ML Neb) 0.5 mg Q4H PRN INH 02/13/17 20:45 03/15/17 20:44 Levalbuterol (Xopenex 1.25MG/ 0.5ML Neb) 1.25 mg Q4H PRN INH 02/13/17 20:45 03/15/17 20:44 Ceftriaxone Sodium 1 gm/ Dextrose 50 ml @ 100 mls/hr Q24H IV 02/14/17 00:00 02/24/17 00:00 02/15/17 00:06 100 MLS/HR Albumin Human (Albumin 25%) 12.5 gm Q6H IV 02/14/17 00:00 02/17/17 00:00 02/15/17 06:02 12.5 GM Lorazepam (Ativan Inj) PRN Dosing -Active Protocol Q1H PRN IV 02/14/17 08:30 03/16/17 08:29 Furosemide (Lasix Tab) 40 mg QAM PO 02/15/17 09:00 03/17/17 08:59 02/15/17 08:48 40 MG Spironolactone (Aldactone Tab) 100 mg QAM PO 02/15/17 09:00 03/17/17 08:59 02/15/17 08:49 100 MG Potassium Chloride (Klor-Con Tab) 20 meq DAILY PO 02/15/17 09:00 03/17/17 08:59 02/15/17 08:49 20 MEQ Nicotine (Nicoderm Cq 21MG Patch) 1 patch QAM EXT 02/14/17 19:30 03/16/17 19:29 02/15/17 08:50 1 PATCH Miscellaneous (Remove Nicoderm Patch) 1 ea QPM N/A 02/14/17 23:00 03/16/17 22:59 02/14/17 23:05 1 EA Levothyroxine Sodium (Synthroid Tab) 25 mcg DAILYBB PO 02/15/17 06:00 03/17/17 05:59 02/15/17 06:02 25 MCG Vancomycin HCl 1000 mg/Sodium Chloride 270 ml @ 125 mls/hr Q14H IV 02/15/17 12:00 03/01/17 11:59 Vancomycin HCl (Consult) 1 ea UD PRN N/A 02/14/17 20:15 03/16/17 20:14 Objective Vital Signs Date Time Temp Pulse Resp B/P (MAP) Pulse Ox O2 Delivery O2 Flow Rate FiO2 02/15/17 09:22 96 Nasal Cannula 3.0 02/15/17 08:17 36.4 107 20 116/75 (89) 96 Nasal Cannula 3.0 02/15/17 08:00 Nasal Cannula 2.0 02/15/17 06:09 36.5 111 99/59 (72) 02/15/17 06:00 36.5 111 16 104/65 (78) 95 Nasal Cannula 3.0 02/15/17 04:05 37.1 113 18 93/56 (68) 96 Nasal Cannula 3.0 02/15/17 04:00 95 Nasal Cannula 3.0 02/15/17 00:19 37.7 105 20 94/50 (65) 95 Nasal Cannula 3.0 02/14/17 23:59 96 Nasal Cannula 3.0 02/14/17 23:53 37.7 105 20 103/64 (77) 96 Nasal Cannula 3.0 02/14/17 20:31 37.1 105 16 98/61 (73) 97 Nasal Cannula 2.0 02/14/17 20:00 95 Nasal Cannula 2.0 02/14/17 18:41 37.5 111 18 102/63 (76) 95 Nasal Cannula 2.0 02/14/17 17:55 37.4 101 20 95/59 (71) 95 Nasal Cannula 2.0 02/14/17 16:18 36.8 109 19 93/58 (70) 93 Nasal Cannula 2.0 02/14/17 16:00 Nasal Cannula 2.0 02/14/17 15:55 Nasal Cannula 2.0 02/14/17 13:53 36.5 105 20 81/55 (64) 96 Nasal Cannula 2.0 92/61 (71) 02/14/17 12:17 106 94/61 (72) 97 Nasal Cannula 1.5 02/14/17 12:00 Nasal Cannula 2.0 02/14/17 11:42 37.1 107 20 91/59 (70) 95 Nasal Cannula 2.0 02/14/17 11:10 37.1 20 107/72 (84) 95 Nasal Cannula 2.0 Physical Exam General Appearance: WD/WN, no apparent distress Eyes: normal inspection, PERRL, EOMI Neck: supple, no JVD, trachea midline Respiratory/Chest: normal breath sounds, no respiratory distress, no accessory muscle use Cardiovascular: regular rate, rhythm, no gallop, no murmur Abdomen: normal bowel sounds, non tender, + distended (mild) Extremities: normal inspection, no pedal edema, no calf tenderness Neurologic/Psych: alert, normal mood/affect, oriented x 3 Skin: normal color, no jaundice, no rash Laboratory Results Last 24 Hours Test 02/15/17 07:55 Sodium Level 139 mmol/L Potassium Level 3.6 mmol/L Chloride Level 104 mmol/L Carbon Dioxide Level 25 mmol/L Anion Gap 10.0 mmol/L Blood Urea Nitrogen 14 mg/dl Creatinine 0.69 mg/dl Est Creatinine Clear Calc Drug Dose 74.9 ml/min Estimated GFR () 109.7 Estimated GFR (Non- 94.6 BUN/Creatinine Ratio 19.6 Random Glucose 87 mg/dl Calcium Level 8.4 mg/dl Assessment and Plan Patient is a 61 year old female w suspected ETOH cirrhosis, admitted for increasing abd distension and pain. CT abd/pelvis showing large volume ascites and small bowel/transverse to splenic flexure colon wall thickening ? enteritis/ colitis. She denies any diarrhea or signs of GI bleeding. Last ETOH intake 2 days [employer]. MELD 14. 5L ascites fluid removal on 02/14 via u/s guided paracentesis. No signs of SBP on initial cell ct but already on Ceftriaxone before tap. Still doubt SBP and can DC antibx coverage for this. Plans - May DC antibx and Albumin for SBP as less likely her abd pain is related SBP. Defer to primary team on antibx choice for bacteremia and UTI. - Lasix 40mg daily, Spironolactone 100mg daily, low Na diet. - Check stool cx and Cdiff if diarrhea. - Strict ETOH cessation advised. Would consider case management eval & referral to ETOH cessation program vs inpt rehab. - DT protocol - Would need outpt GI f/u upon DC for continued workup and management of cirrhosis. UTD on EGD/Colonoscopy (02/2016 grossly normal).
[2017-02-15] MEDS: OXYCODONE HCL IR 5 MG TAB (IMMEDIATE RELEASE) PO PRN (11:49)
[2017-02-15] MEDS: VANCOMYCIN INJ 1,000 MG in SODIUM CHLORIDE 0.9% 250ML 250 ML IV SCH (12:28)
--- NOTE | 2017-02-15 12:54 | Progress Note ---
Internal Med Progress Note Date of Service: Feb 15, 2017. Provider Documentation: SUBJECTIVE: complains of occasional shooting pain in her abdomen no fever or chills no tremor noted feels her abdomen is getting distended gets bloated after each meal not interested in doing PT/OT today as she does not feel well/having discomfort with abdominal cramps OBJECTIVE: Vital Signs-as noted below Exam: General-chronically ill appearing Eyes-mildly icteric sclera ENT-NAD Neck-no JVD Lungs-diminished, no rales or wheeze noted Heart-regular S1/S2 Abdomen-moderately distended , soft, non tender Extremities- no lower ext edema Neuro-appears to be anxious , no focal deficit Lab data as noted below. ASSESSMENT & PLAN: CHRONIC LIVER DISEASE /ALCOHOLIC CIRRHOSIS /HX OF HEP C presented with worsening of Ascites /abdominal pain /SOB : CT abdomen /pelvis : 1. Marked heterogeneity of the liver with areas of capsular attraction, parenchymal distortion, atrophy and marked fatty infiltration are again seen with progressive atrophy from prior study. Additionally, there is large volume of intra-abdominal and intrapelvic ascites. 2. Multiple loops of small bowel demonstrate wall thickening with wall thickening also seen within the distribution of the splenic flexure and transverse colon suggesting sequela of hypoproteinemia. Enteritis/colitis could cause a similar appearance. Correlate with clinical history and laboratory values. -appreciate in put form GI -no evidence of Sepsis -on empiric Abx with Rocephin F/U urine and blood cx. -s/p paracentesis of ~5 L of ascitic fluid -/ascitic fluid culture negative for SBP -cont Diuresis Lasix 40mg daily, Spironolactone 100mg daily, low Na diet. -pt is counselled for strict ETOH abstinence GRAM POSITIVE BACTEREMIA ; -coag negative staph in 1/2 bottle in sample 02/13/17 -possible contamination -repeat blood culture ordered -pt started empirically with IV Vancomycin ID eval requested UTI : urine culture -Gram negative bacilli-E coli /nava sensitive -cont on Rocephin LONG HX OF ETOH ABUSE : drinks Vodka -has long hx of heavy drinking -cont on DT /ETOH withdrawal protocol -monitor tele -Per GI : Strict ETOH cessation advised. case management eval & referral to ETOH cessation program vs inpt rehab. - social service consulted -pt is not very receptive for ETOH rehab FULL CODE DVT PROPHYLAXIS SC Lovenox DISPOSITION expected to be discharged home when medically stable ordered for PT/OT eval high fall risk with functional decline Medicine follow up with Dr Khanna will need continued GI follow up Social service consulted for DC planning called pt's Significant other Huber Thorpe -left message Vital Signs: Date Time Temp Pulse Resp B/P (MAP) Pulse Ox O2 Delivery O2 Flow Rate FiO2 02/15/17 12:00 Nasal Cannula 2.0 02/15/17 11:15 36.7 112 20 101/64 (76) 95 Nasal Cannula 3.0 02/15/17 09:22 96 Nasal Cannula 3.0 02/15/17 08:17 36.4 107 20 116/75 (89) 96 Nasal Cannula 3.0 02/15/17 08:00 Nasal Cannula 2.0 02/15/17 06:09 36.5 111 99/59 (72) 02/15/17 06:00 36.5 111 16 104/65 (78) 95 Nasal Cannula 3.0 02/15/17 04:05 37.1 113 18 93/56 (68) 96 Nasal Cannula 3.0 02/15/17 04:00 95 Nasal Cannula 3.0 02/15/17 00:19 37.7 105 20 94/50 (65) 95 Nasal Cannula 3.0 02/14/17 23:59 96 Nasal Cannula 3.0 02/14/17 23:53 37.7 105 20 103/64 (77) 96 Nasal Cannula 3.0 02/14/17 20:31 37.1 105 16 98/61 (73) 97 Nasal Cannula 2.0 02/14/17 20:00 95 Nasal Cannula 2.0 02/14/17 18:41 37.5 111 18 102/63 (76) 95 Nasal Cannula 2.0 02/14/17 17:55 37.4 101 20 95/59 (71) 95 Nasal Cannula 2.0 02/14/17 16:18 36.8 109 19 93/58 (70) 93 Nasal Cannula 2.0 02/14/17 16:00 Nasal Cannula 2.0 02/14/17 15:55 Nasal Cannula 2.0 02/14/17 13:53 36.5 105 20 81/55 (64) 96 Nasal Cannula 2.0 92/61 (71) Lab Results: Results Past 24 Hours Test 02/15/17 07:55 Range/Units Sodium Level 139 136-145 mmol/L Potassium Level 3.6 3.5-5.1 mmol/L Chloride Level 104 98-107 mmol/L Carbon Dioxide Level 25 21-32 mmol/L Anion Gap 10.0 3-11 mmol/L Blood Urea Nitrogen 14 7-18 mg/dl Creatinine 0.69 0.60-1.20 mg/dl Est Creatinine Clear Calc Drug Dose 74.9 ml/min Estimated GFR () 109.7 Estimated GFR (Non- 94.6 BUN/Creatinine Ratio 19.6 10-20 Random Glucose 87 70-99 mg/dl Calcium Level 8.4 8.5-10.1 mg/dl Microbiology Results 02/15/17 Blood Culture, Ordered Pending 02/15/17 Blood Culture, Ordered Pending
--- NOTE | 2017-02-15 14:53 | Progress Note ---
Progress Note Date of Service Feb 15, 2017. Progress Note ID Consult Dictated #[id number] A/P: 1. UTI - E. coli 2. + blood culture - valve tester, likely contaminant -Continue rocephin x 3 days total -Follow repeat blood culture, if negative can stop vanco -thank you
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
[2017-02-16] VITALS (12 sets, daily range): BP systolic 80–96; BP diastolic 41–65; PULSE 98–108; TEMP 36.6–37.3; O2SAT 93–99
[2017-02-16] MEDS: VANCOMYCIN INJ 1,000 MG in SODIUM CHLORIDE 0.9% 250ML 250 ML IV SCH ×2 (01:32→19:41)
[2017-02-16] MEDS: ALBUMIN HUMAN 25% 12.5 GM/50 ML VIAL IV SCH ×5 (05:13→12:30)
[2017-02-16] MEDS: LEVOTHYROXINE 25 MCG TAB PO SCH (05:14)
[2017-02-16] MEDS: ENOXAPARIN 40 MG/0.4 ML SYR SC SCH (07:51)
[2017-02-16] MEDS: NICOTINE 21 MG/24 HR TDSY EXT SCH (07:51)
[2017-02-16] MEDS: GABAPENTIN 300 MG CAP PO SCH ×3 (07:51→19:40)
[2017-02-16] MEDS: FLINTSTONES COMPLETE CHEWABLE TAB PO SCH (07:52)
[2017-02-16] MEDS: POTASSIUM CHLORIDE 20 MEQ TABCR PO SCH (07:52)
[2017-02-16] MEDS: FUROSEMIDE 40 MG TAB PO SCH (07:53)
[2017-02-16] MEDS: THIAMINE HCL 100 MG TAB PO SCH (07:53)
[2017-02-16] MEDS: SPIRONOLACTONE 100 MG TAB PO SCH (07:53)
[2017-02-16 08:44] LABS: BUN/CREATININE RATIO 11.9 (10-20); CALCIUM 8.4 mg/dl (8.5-10.1); CREATININE 0.7 mg/dl (0.60-1.20); POTASSIUM 3.5 mmol/L (3.5-5.1)
--- NOTE | 2017-02-16 11:18 | Gastroenterology Progress Note ---
Progress Note Date of Service: Feb 16, 2017 Subjective Pt evaluation today including: conversation w/ patient, physical exam, chart review, lab review, review of inpatient medication list Pt c/o abd distension causing her having a hard time breathing. Denies abd pain. Appetite good, no n/v. Review of Systems Constitutional: No fever, No chills Respiratory: + shortness of breath (related to abd distension ), No cough Abdomen: No pain, No nausea, No vomiting Medications Current Inpatient Medications Medications (Trade) Dose Ordered Sig/Shelby Route Start Time Stop Time Status Last Admin Dose Admin Ioversol (Optiray 320) 116 ml UD PRN IV 02/13/17 17:45 02/17/17 17:44 Enoxaparin Sodium (Lovenox Inj) 40 mg Q24H SC 02/14/17 09:00 03/16/17 08:59 02/16/17 07:51 40 MG Acetaminophen (Tylenol Tab) 325 mg Q6H PRN PO 02/13/17 20:30 03/15/17 20:29 Oxycodone HCl (Roxicodone Immediate Rel Tab) 5 mg Q4H PRN PO 02/13/17 20:30 02/27/17 20:29 02/15/17 11:49 5 MG Ondansetron HCl (Zofran Inj) 4 mg Q6H PRN IV 02/13/17 20:30 03/15/17 20:29 Gabapentin (Neurontin Cap) 300 mg TID PO 02/13/17 21:00 03/15/17 20:59 02/16/17 07:51 300 MG Thiamine HCl (Vitamin B-1 Tab) 100 mg QAM PO 02/14/17 09:00 03/16/17 08:59 02/16/17 07:53 100 MG Multivitamins (Flintstones Complete Tab) 1 tab QAM PO 02/14/17 09:00 03/16/17 08:59 02/16/17 07:52 1 TAB Folic Acid (Folvite Tab) 1 mg QAM PO 02/14/17 09:00 03/16/17 08:59 02/16/17 07:52 1 MG Hydromorphone HCl (Dilaudid Inj) 0.5 mg Q4H PRN IV 02/13/17 20:45 02/27/17 20:44 Ipratropium [place] (Atrovent 0.02% 0.5MG/2.5ML Neb) 0.5 mg Q4H PRN INH 02/13/17 20:45 03/15/17 20:44 Levalbuterol (Xopenex 1.25MG/ 0.5ML Neb) 1.25 mg Q4H PRN INH 02/13/17 20:45 03/15/17 20:44 Ceftriaxone Sodium 1 gm/ Dextrose 50 ml @ 100 mls/hr Q24H IV 02/14/17 00:00 02/24/17 00:00 02/15/17 23:13 100 MLS/HR Lorazepam (Ativan Inj) PRN Dosing -Active Protocol Q1H PRN IV 02/14/17 08:30 03/16/17 08:29 Furosemide (Lasix Tab) 40 mg QAM PO 02/15/17 09:00 03/17/17 08:59 02/16/17 07:53 40 MG Spironolactone (Aldactone Tab) 100 mg QAM PO 02/15/17 09:00 03/17/17 08:59 02/16/17 07:53 100 MG Potassium Chloride (Klor-Con Tab) 20 meq DAILY PO 02/15/17 09:00 03/17/17 08:59 02/16/17 07:52 20 MEQ Nicotine (Nicoderm Cq 21MG Patch) 1 patch QAM EXT 02/14/17 19:30 03/16/17 19:29 02/16/17 07:51 1 PATCH Miscellaneous (Remove Nicoderm Patch) 1 ea QPM N/A 02/14/17 23:00 03/16/17 22:59 02/15/17 21:14 1 EA Levothyroxine Sodium (Synthroid Tab) 25 mcg DAILYBB PO 02/15/17 06:00 03/17/17 05:59 02/16/17 05:14 25 MCG Vancomycin HCl 1000 mg/Sodium Chloride 270 ml @ 125 mls/hr Q14H IV 02/15/17 12:00 03/01/17 11:59 02/16/17 01:32 125 MLS/HR Vancomycin HCl (Consult) 1 ea UD PRN N/A 02/14/17 20:15 03/16/17 20:14 Albumin Human (Albumin 25%) 12.5 gm Q30M IV 02/16/17 10:00 02/16/17 11:31 02/16/17 10:26 12.5 GM Objective Vital Signs Date Time Temp Pulse Resp B/P (MAP) Pulse Ox O2 Delivery O2 Flow Rate FiO2 02/16/17 11:05 36.6 100 20 80/57 (65) 99 2.5 02/16/17 08:00 Nasal Cannula 2.0 02/16/17 07:58 36.6 99 20 92/60 (71) 99 2.0 02/16/17 05:49 36.9 100 20 96/63 (74) 99 02/16/17 05:21 36.6 108 20 108 02/16/17 04:00 98 Nasal Cannula 2.0 02/16/17 03:56 37.0 98 18 91/62 (72) 98 Nasal Cannula 2.0 02/15/17 23:59 Nasal Cannula 2.0 02/15/17 23:36 103 20 92/57 (69) 02/15/17 23:10 37.2 104 18 103/63 (76) 96 Nasal Cannula 2.5 02/15/17 20:00 95 Room Air 02/15/17 19:19 36.7 99 16 98/60 (73) 95 Room Air 02/15/17 16:00 Room Air 02/15/17 15:58 36.4 98 14 98/64 (75) 94 02/15/17 12:00 Nasal Cannula 2.0 02/15/17 11:15 36.7 112 20 101/64 (76) 95 Nasal Cannula 3.0 Physical Exam General Appearance: no apparent distress, + thin Eyes: normal inspection, PERRL, EOMI Neck: supple, no JVD, trachea midline Respiratory/Chest: no respiratory distress, no accessory muscle use, + decreased breath sounds Cardiovascular: regular rate, rhythm, no gallop, no murmur Abdomen: normal bowel sounds, non tender, + distended Extremities: normal inspection, no pedal edema, no calf tenderness Neurologic/Psych: alert, normal mood/affect, oriented x 3 Skin: normal color, no jaundice, no rash Laboratory Results Last 24 Hours Test 02/16/17 08:11 Sodium Level 138 mmol/L Potassium Level 3.5 mmol/L Chloride Level 105 mmol/L Carbon Dioxide Level 24 mmol/L Anion Gap 9.0 mmol/L Blood Urea Nitrogen 8 mg/dl Creatinine 0.70 mg/dl Est Creatinine Clear Calc Drug Dose 73.8 ml/min Estimated GFR () 109.1 Estimated GFR (Non- 94.2 BUN/Creatinine Ratio 11.9 Random Glucose 75 mg/dl Calcium Level 8.4 mg/dl Assessment and Plan Patient is a 61 year old female w suspected ETOH cirrhosis, admitted for increasing abd distension and pain. CT abd/pelvis showing large volume ascites and small bowel/transverse to splenic flexure colon wall thickening ? enteritis/ colitis. She denies any diarrhea or signs of GI bleeding. Last ETOH intake 2 days [employer]. MELD 14. 5L ascites fluid removal on 02/14 via u/s guided paracentesis. No signs of SBP on initial cell ct but already on Ceftriaxone before tap. Still doubt SBP and can DC antibx coverage for this. Persistent abd distension causing her having hard time breathing. Will plan to repeat paracentesis today. + Ecoli UTI, Staph growing from blood cx likely contamination repeat blood cx pending. Plans - Lasix 40mg daily, Spironolactone 100mg daily, low Na diet. - Therapeutic paracentesis 5L, w Albumin 25% 25g before and 25g after paracentesis. - Check stool cx and Cdiff if diarrhea. - Strict ETOH cessation advised. Would consider case management eval & referral to ETOH cessation program vs inpt rehab. - DT protocol - Would need outpt GI f/u upon DC for continued workup and management of cirrhosis. UTD on EGD/Colonoscopy (02/2016 grossly normal).
--- NOTE | 2017-02-16 14:40 | DIAGNOSTIC IMAGING REPORT ---
ULTRASOUND GUIDED THERAPEUTIC PARACENTESIS CLINICAL HISTORY: Ascites. COMPARISON STUDY: No previous studies for comparison. PROCEDURE: The risks, benefits, and alternatives to the procedure were discussed with the patient including the risk of bleeding, infection and injury to adjacent structures. The patient agreed to the procedure and informed written consent was obtained. Following real-time ultrasound localization, the skin of the right lower quadrant was prepped and draped. Following local anesthesia with Xylocaine, the sheath paracentesis needle was inserted and approximately 3.2 liters of straw-colored fluid was removed by vacuum suction. No additional fluid could be aspirated. The patient tolerated the procedure well and no immediate complications were evident. IMPRESSION: Ultrasound-guided therapeutic paracentesis with removal of 3.2 liters of ascites. Electronically signed by: Kvng Henrandez M.D. 02/16/2017 2:38 PM Dictated Date/Time: 02/16/2017 2:37 PM
[2017-02-16] MEDS ORDERED: VANCOMYCIN TROUGH SCH (15:30)
--- NOTE | 2017-02-16 16:17 | Progress Note ---
Internal Med Progress Note Date of Service: Feb 16, 2017. Provider Documentation: SUBJECTIVE: complains of abdominal distension causing her SOB /difficulty breathing s/p repeat Paracentesis with removal for 3.5 L of ascitic fluid OBJECTIVE: Vital Signs-as noted below Exam: General-chronically ill appearing Eyes-mildly icteric sclera ENT-NAD Neck-no JVD Lungs-diminished, no rales or wheeze noted Heart-regular S1/S2 Abdomen-moderately distended , soft, non tender Extremities- no lower ext edema Neuro-appears to be anxious , no focal deficit Lab data as noted below. ASSESSMENT & PLAN: CHRONIC LIVER DISEASE /ALCOHOLIC CIRRHOSIS /HX OF HEP C presented with worsening of Ascites /abdominal pain /SOB : CT abdomen /pelvis : 1. Marked heterogeneity of the liver with areas of capsular attraction, parenchymal distortion, atrophy and marked fatty infiltration are again seen with progressive atrophy from prior study. Additionally, there is large volume of intra-abdominal and intrapelvic ascites. 2. Multiple loops of small bowel demonstrate wall thickening with wall thickening also seen within the distribution of the splenic flexure and transverse colon suggesting sequela of hypoproteinemia. Enteritis/colitis could cause a similar appearance. Correlate with clinical history and laboratory values. -appreciate in put form GI -no evidence of Sepsis -on empiric Abx with Rocephin F/U urine and blood cx. -s/p paracentesis of ~5 L of ascitic fluid on 02/14/17 -/ascitic fluid culture negative for SBP repeat Paracentesis with removal of 3.5 L of ascitic fluid -cont Diuresis Lasix 40mg daily, Spironolactone 100mg daily, low Na diet. -pt is counselled for strict ETOH abstinence GRAM POSITIVE BACTEREMIA ; -coag negative staph in 1/2 bottle in sample 02/13/17 -possible contamination -repeat blood culture ordered -pt started empirically with IV Vancomycin ID eval requested -appreciate input UTI : urine culture -Gram negative bacilli-E coli /nava sensitive -cont on Rocephin LONG HX OF ETOH ABUSE : drinks Vodka -has long hx of heavy drinking -cont on DT /ETOH withdrawal protocol -monitor tele -Per GI : Strict ETOH cessation advised. case management eval & referral to ETOH cessation program vs inpt rehab. - social service consulted -pt is not very receptive for ETOH rehab FULL CODE DVT PROPHYLAXIS SC Lovenox DISPOSITION expected to be discharged home when medically stable ordered for PT/OT eval high fall risk with functional decline Medicine follow up with Dr Khanna will need continued GI follow up Social service consulted for DC planning Vital Signs: Date Time Temp Pulse Resp B/P (MAP) Pulse Ox O2 Delivery O2 Flow Rate FiO2 02/16/17 20:10 Nasal Cannula 2.0 02/16/17 18:29 37.3 105 16 92/56 (68) 93 Room Air 02/16/17 16:00 Nasal Cannula 2.0 02/16/17 15:58 101 20 95/65 (75) 99 2.5 02/16/17 15:28 36.9 104 20 90/59 (69) 99 2.5 02/16/17 15:13 36.9 104 20 95/64 (74) 99 2.5 02/16/17 14:58 36.9 102 20 92/61 (71) 99 02/16/17 12:00 Nasal Cannula 2.0 02/16/17 11:05 36.6 100 20 80/57 (65) 99 2.5 02/16/17 08:00 Nasal Cannula 2.0 02/16/17 07:58 36.6 99 20 92/60 (71) 99 2.0 02/16/17 05:49 36.9 100 20 96/63 (74) 99 02/16/17 05:21 36.6 108 20 108 02/16/17 04:00 98 Nasal Cannula 2.0 02/16/17 03:56 37.0 98 18 91/62 (72) 98 Nasal Cannula 2.0 02/15/17 23:59 Nasal Cannula 2.0 02/15/17 23:36 103 20 92/57 (69) 02/15/17 23:10 37.2 104 18 103/63 (76) 96 Nasal Cannula 2.5 Lab Results: Results Past 24 Hours Test 02/16/17 08:11 02/16/17 15:35 Range/Units Sodium Level 138 136-145 mmol/L Potassium Level 3.5 3.5-5.1 mmol/L Chloride Level 105 98-107 mmol/L Carbon Dioxide Level 24 21-32 mmol/L Anion Gap 9.0 3-11 mmol/L Blood Urea Nitrogen 8 7-18 mg/dl Creatinine 0.70 0.60-1.20 mg/dl Est Creatinine Clear Calc Drug Dose 73.8 ml/min Estimated GFR () 109.1 Estimated GFR (Non- 94.2 BUN/Creatinine Ratio 11.9 10-20 Random Glucose 75 70-99 mg/dl Calcium Level 8.4 8.5-10.1 mg/dl Vancomycin Level Trough 21.0 SEE COMMENT mcg/ml
--- NOTE | 2017-02-16 19:02 | Pharmacy Progress Note ---
Pharmacy Abx Dose Progress Nt Date of Service Feb 16, 2017. Pharmacy Dosing Scope The patient is currently receiving the following antimicrobial agents per Pharmacy consult: Vancomycin 1000 mg IV every 14 hours Objective Height (Feet): 5 Height (Inches): 4.00 Weight (Kilograms): 60.000 Vital Signs (Past 12Hrs) Vital Signs Past 12 Hours Date Time Temp Pulse Resp B/P (MAP) Pulse Ox O2 Delivery O2 Flow Rate FiO2 02/16/17 16:00 Nasal Cannula 2.0 02/16/17 15:58 101 20 95/65 (75) 99 2.5 02/16/17 15:28 36.9 104 20 90/59 (69) 99 2.5 02/16/17 15:13 36.9 104 20 95/64 (74) 99 2.5 02/16/17 14:58 36.9 102 20 92/61 (71) 99 02/16/17 12:00 Nasal Cannula 2.0 02/16/17 11:05 36.6 100 20 80/57 (65) 99 2.5 02/16/17 08:00 Nasal Cannula 2.0 02/16/17 07:58 36.6 99 20 92/60 (71) 99 2.0 Micro Results Date/Time Source Procedure Growth Status 02/15/17 13:09 Blood Blood Culture Pending Received 02/15/17 13:02 Blood Blood Culture Pending Received 02/13/17 22:21 Blood Blood Culture - Preliminary Coag Neg Staph Not Lugdunensis Resulted 02/13/17 21:01 Blood Blood Culture - Preliminary NO GROWTH TO DATE. Resulted 02/13/17 21:54 Urine , Clean Catch Urine Culture - Final Escherichia Coli Complete 02/14/17 00:00 Ascities Fluid Acid Fast Stain - Final Resulted 02/14/17 00:00 Ascities Fluid Mycobacterial Culture Pending Resulted 02/14/17 00:00 Ascities Fluid Gram Stain - Final Resulted 02/14/17 00:00 Ascities Fluid Bacterial Culture - Preliminary NO GROWTH TO DATE. Resulted Risk Factors for Resistance * Hospitalization for 48 hours or more within the past 90 days * Antimicrobial use within the last 90 days (currently on Rocephin for SBP prophylaxis) Assessment & Plan Assessment 61 year old female receiving Vancomycin for treatment of SBP + gram positive septicemia Day # 3 of antimicrobial therapy Plan Vancomycin IV * Trough level of 21 mcg/mL is supratherapeutic. Furthermore, this is an early level drawn prior to the 3rd dose and is not reflective of Vancomycin at steady state. Actual Css trough may be higher. Therefore, will extend dosing interval to target a lower trough. * Change to 1000 mg IV every 18 hours * Goal trough level for bacteremia : 15 to 20 mcg/mL * Trough level ordered for: 02/18 @ 0730 (early level and not prior to steady state, but would like to reassess dosing regimen given severity of infection) Pharmacy will continue to follow and will adjust dose/frequency as necessary. Thank you.
[2017-02-16] MEDS: CEFTRIAXONE SOD INJ 1 GM in DEXTROSE 5% ADD-VANTAGE 50ML 50 ML IV SCH (22:13)
[2017-02-16] MEDS: OXYCODONE HCL IR 5 MG TAB (IMMEDIATE RELEASE) PO PRN (22:18)
[2017-02-17] MEDS: LEVOTHYROXINE 25 MCG TAB PO SCH (05:25)
[2017-02-17 05:33] VITALS: BP 85/52; PULSE 103; TEMP 36.7; O2SAT 97
[2017-02-17] MEDS: THIAMINE HCL 100 MG TAB PO SCH (07:35)
[2017-02-17] MEDS: GABAPENTIN 300 MG CAP PO SCH ×3 (07:35→20:50)
[2017-02-17] MEDS: NICOTINE 21 MG/24 HR TDSY EXT SCH (07:36)
[2017-02-17] MEDS: FLINTSTONES COMPLETE CHEWABLE TAB PO SCH (07:36)
[2017-02-17] MEDS: SPIRONOLACTONE 100 MG TAB PO SCH (07:36)
[2017-02-17] MEDS: POTASSIUM CHLORIDE 20 MEQ TABCR PO SCH (07:37)
[2017-02-17] MEDS: FUROSEMIDE 40 MG TAB PO SCH (07:37)
[2017-02-17] MEDS: ENOXAPARIN 40 MG/0.4 ML SYR SC SCH (07:38)
[2017-02-17 07:55] VITALS: BP 97/62; PULSE 103; TEMP 36.7; O2SAT 98
[2017-02-17 08:45] LABS: BASO % 0.4 %; BASO ABS # 0.04 K/uL (0-0.2); COMPLETE YES; EOS % 1.7 %; HEMATOCRIT 30.5 % (37-47); IG% 0.3 %; LYMPH % 21.4 %; LYMPH ABS # 2.06 K/uL (1.2-3.4); MEAN CELL VOLUME 105.9 fL (80-100); MEAN CORPUSCULAR HEMOGLOBIN 34.7 pg (25-34); MEAN CORPUSCULAR HGB CONC 32.8 g/dl (32-36); MEAN PLATELET VOLUME 10.2 fL (7.4-10.4); MONO % 16.1 %; NEUT % 60.1 %; PLATELET COUNT 154 K/uL (130-400); RED BLOOD COUNT 2.88 M/uL (4.2-5.4); WHITE BLOOD COUNT 9.61 K/uL (4.8-10.8)
[2017-02-17 09:17] LABS: BUN/CREATININE RATIO 9.3 (10-20); CALCIUM 8.2 mg/dl (8.5-10.1); CREATININE 0.67 mg/dl (0.60-1.20); POTASSIUM 3.5 mmol/L (3.5-5.1)
[2017-02-17 10:57] VITALS: BP 91/59; PULSE 105; TEMP 36.9; O2SAT 99
--- NOTE | 2017-02-17 11:09 | Gastroenterology Progress Note ---
Progress Note Date of Service: Feb 17, 2017 Subjective Pt evaluation today including: conversation w/ patient, physical exam, chart review, lab review, review of inpatient medication list Pt had 3.2L ascites fluid removed via paracentesis yesterday. Denies abd pain, n /v. Afebrile overnight, repeat blood cx negative, initial Staph growth in 1/2 blood cx may be contaminant. Review of Systems Constitutional: No fever, No chills Respiratory: No cough, No shortness of breath Cardiac: No chest pain Abdomen: No pain, No nausea, No vomiting Medications Current Inpatient Medications Medications (Trade) Dose Ordered Sig/Shelby Route Start Time Stop Time Status Last Admin Dose Admin Ioversol (Optiray 320) 116 ml UD PRN IV 02/13/17 17:45 02/17/17 17:44 Enoxaparin Sodium (Lovenox Inj) 40 mg Q24H SC 02/14/17 09:00 03/16/17 08:59 02/17/17 07:38 40 MG Acetaminophen (Tylenol Tab) 325 mg Q6H PRN PO 02/13/17 20:30 03/15/17 20:29 Oxycodone HCl (Roxicodone Immediate Rel Tab) 5 mg Q4H PRN PO 02/13/17 20:30 02/27/17 20:29 02/16/17 22:18 5 MG Ondansetron HCl (Zofran Inj) 4 mg Q6H PRN IV 02/13/17 20:30 03/15/17 20:29 02/16/17 19:41 4 MG Gabapentin (Neurontin Cap) 300 mg TID PO 02/13/17 21:00 03/15/17 20:59 02/17/17 07:35 300 MG Thiamine HCl (Vitamin B-1 Tab) 100 mg QAM PO 02/14/17 09:00 03/16/17 08:59 02/17/17 07:35 100 MG Multivitamins (Flintstones Complete Tab) 1 tab QAM PO 02/14/17 09:00 03/16/17 08:59 02/17/17 07:36 1 TAB Folic Acid (Folvite Tab) 1 mg QAM PO 02/14/17 09:00 03/16/17 08:59 02/17/17 07:35 1 MG Hydromorphone HCl (Dilaudid Inj) 0.5 mg Q4H PRN IV 02/13/17 20:45 02/27/17 20:44 Ipratropium Julian (Atrovent 0.02% 0.5MG/2.5ML Neb) 0.5 mg Q4H PRN INH 02/13/17 20:45 03/15/17 20:44 Levalbuterol (Xopenex 1.25MG/ 0.5ML Neb) 1.25 mg Q4H PRN INH 02/13/17 20:45 03/15/17 20:44 Ceftriaxone Sodium 1 gm/ Dextrose 50 ml @ 100 mls/hr Q24H IV 02/14/17 00:00 02/24/17 00:00 02/16/17 22:13 100 MLS/HR Lorazepam (Ativan Inj) PRN Dosing -Active Protocol Q1H PRN IV 02/14/17 08:30 03/16/17 08:29 Furosemide (Lasix Tab) 40 mg QAM PO 02/15/17 09:00 03/17/17 08:59 02/17/17 07:37 40 MG Spironolactone (Aldactone Tab) 100 mg QAM PO 02/15/17 09:00 03/17/17 08:59 02/17/17 07:36 100 MG Potassium Chloride (Klor-Con Tab) 20 meq DAILY PO 02/15/17 09:00 03/17/17 08:59 02/17/17 07:37 20 MEQ Nicotine (Nicoderm Cq 21MG Patch) 1 patch QAM EXT 02/14/17 19:30 03/16/17 19:29 02/17/17 07:36 1 PATCH Miscellaneous (Remove Nicoderm Patch) 1 ea QPM N/A 02/14/17 23:00 03/16/17 22:59 02/16/17 19:41 1 EA Levothyroxine Sodium (Synthroid Tab) 25 mcg DAILYBB PO 02/15/17 06:00 03/17/17 05:59 02/17/17 05:25 25 MCG Vancomycin HCl (Consult) 1 ea UD PRN N/A 02/14/17 20:15 03/16/17 20:14 Vancomycin HCl 1000 mg/Sodium Chloride 270 ml @ 125 mls/hr Q18H IV 02/16/17 20:00 03/02/17 19:59 02/16/17 19:41 125 MLS/HR Objective Vital Signs Date Time Temp Pulse Resp B/P (MAP) Pulse Ox O2 Delivery O2 Flow Rate FiO2 02/17/17 10:57 36.9 105 20 91/59 (70) 99 2.0 02/17/17 08:00 Nasal Cannula 2.0 02/17/17 07:55 36.7 103 20 97/62 (74) 98 2.0 02/17/17 05:33 36.7 103 18 85/52 (63) 97 02/17/17 04:10 Nasal Cannula 2.0 02/17/17 00:10 Nasal Cannula 2.0 02/16/17 23:10 37.0 99 16 86/41 (56) 96 Nasal Cannula 2.0 02/16/17 20:10 Nasal Cannula 2.0 02/16/17 18:29 37.3 105 16 92/56 (68) 93 Room Air 02/16/17 16:00 Nasal Cannula 2.0 02/16/17 15:58 101 20 95/65 (75) 99 2.5 02/16/17 15:28 36.9 104 20 90/59 (69) 99 2.5 02/16/17 15:13 36.9 104 20 95/64 (74) 99 2.5 02/16/17 14:58 36.9 102 20 92/61 (71) 99 02/16/17 12:00 Nasal Cannula 2.0 02/16/17 11:05 36.6 100 20 80/57 (65) 99 2.5 Physical Exam General Appearance: no apparent distress, + thin Eyes: normal inspection, PERRL, EOMI Neck: supple, no JVD, trachea midline Respiratory/Chest: normal breath sounds, no respiratory distress, no accessory muscle use Cardiovascular: regular rate, rhythm, no gallop, no murmur Abdomen: normal bowel sounds, non tender, + distended (mild) Extremities: normal inspection, no pedal edema, no calf tenderness Neurologic/Psych: alert, normal mood/affect, oriented x 3 Skin: normal color, no jaundice, no rash Laboratory Results Last 24 Hours Test 02/16/17 15:35 02/17/17 08:21 Vancomycin Level Trough 21.0 mcg/ml White Blood Count 9.61 K/uL Red Blood Count 2.88 M/uL Hemoglobin 10.0 g/dL Hematocrit 30.5 % Mean Corpuscular Volume 105.9 fL Mean Corpuscular Hemoglobin 34.7 pg Mean Corpuscular Hemoglobin Concent 32.8 g/dl Platelet Count 154 K/uL Mean Platelet Volume 10.2 fL Neutrophils (%) (Auto) 60.1 % Lymphocytes (%) (Auto) 21.4 % Monocytes (%) (Auto) 16.1 % Eosinophils (%) (Auto) 1.7 % Basophils (%) (Auto) 0.4 % Neutrophils # (Auto) 5.77 K/uL Lymphocytes # (Auto) 2.06 K/uL Monocytes # (Auto) 1.55 K/uL Eosinophils # (Auto) 0.16 K/uL Basophils # (Auto) 0.04 K/uL RDW Standard Deviation 59.2 fL RDW Coefficient of Variation 15.4 % Immature Granulocyte % (Auto) 0.3 % Immature Granulocyte # (Auto) 0.03 K/uL Sodium Level 139 mmol/L Potassium Level 3.5 mmol/L Chloride Level 106 mmol/L Carbon Dioxide Level 26 mmol/L Anion Gap 7.0 mmol/L Blood Urea Nitrogen 6 mg/dl Creatinine 0.67 mg/dl Est Creatinine Clear Calc Drug Dose 77.1 ml/min Estimated GFR () 110.7 Estimated GFR (Non- 95.5 BUN/Creatinine Ratio 9.3 Random Glucose 92 mg/dl Calcium Level 8.2 mg/dl Assessment and Plan fPatient is a 61 year old female w suspected ETOH cirrhosis, admitted for increasing abd distension and pain. CT abd/pelvis showing large volume ascites and small bowel/transverse to splenic flexure colon wall thickening ? enteritis/ colitis. She denies any diarrhea or signs of GI bleeding. Last ETOH intake 2 days SKIRT [employer]IP[employer]. MELD 14. 5L ascites fluid removal on 02/14 via u/s guided paracentesis. No signs of SBP on initial cell ct but already on Ceftriaxone before tap. Still doubt SBP and can DC antibx coverage for this. Repeat therapeutic paracentesis 2.3L removal on 02/16 + Ecoli UTI, Staph growing from blood cx likely contamination repeat blood cx negative. Plans - Lasix 40mg daily, Spironolactone 100mg daily, low Na diet. - Check stool cx and Cdiff if diarrhea. - Strict ETOH cessation advised. Would consider case management eval & referral to ETOH cessation program vs inpt rehab. - DT protocol - Would need outpt GI f/u upon DC for continued workup and management of cirrhosis. UTD on EGD/Colonoscopy (02/2016 grossly normal). No new GI plans, will watch peripherally, call if new questions/concerns arise.
[2017-02-17] MEDS: VANCOMYCIN INJ 1,000 MG in SODIUM CHLORIDE 0.9% 250ML 250 ML IV SCH (14:22)
[2017-02-17 15:51] VITALS: BP 77/51; PULSE 93; TEMP 36.8; O2SAT 99
[2017-02-17 16:00] VITALS: O2SAT 99
[2017-02-17 17:43] VITALS: BP 77/51; PULSE 93; TEMP 36.8; O2SAT 99
--- NOTE | 2017-02-17 18:12 | Progress Note ---
Internal Med Progress Note Date of Service: Feb 17, 2017. Provider Documentation: SUBJECTIVE: feels the same , weak and tired abdominal distention improved still having pain on bilateral lower ribs and back afebrile OBJECTIVE: Vital Signs-as noted below Exam: General-chronically ill appearing Eyes-mildly icteric sclera ENT-NAD Neck-no JVD Lungs-diminished, no rales or wheeze noted Heart-regular S1/S2 Abdomen-moderately distended , soft, non tender Extremities- no lower ext edema Neuro-appears to be anxious , no focal deficit Lab data as noted below. ASSESSMENT & PLAN: CHRONIC LIVER DISEASE /ALCOHOLIC CIRRHOSIS /HX OF HEP C presented with worsening of Ascites /abdominal pain /SOB : CT abdomen /pelvis : 1. Marked heterogeneity of the liver with areas of capsular attraction, parenchymal distortion, atrophy and marked fatty infiltration are again seen with progressive atrophy from prior study. Additionally, there is large volume of intra-abdominal and intrapelvic ascites. 2. Multiple loops of small bowel demonstrate wall thickening with wall thickening also seen within the distribution of the splenic flexure and transverse colon suggesting sequela of hypoproteinemia. Enteritis/colitis could cause a similar appearance. Correlate with clinical history and laboratory values. -appreciate in put form GI -no evidence of Sepsis -on empiric Abx with Rocephin F/U urine and blood cx. -s/p paracentesis of ~5 L of ascitic fluid on 02/14/17 -/ascitic fluid culture negative for SBP repeat Paracentesis with removal of 3.5 L of ascitic fluid on 02/16/17 -cont Diuresis Lasix 40mg daily, Spironolactone 100mg daily, low Na diet. -pt is counselled for strict ETOH abstinence GRAM POSITIVE BACTEREMIA ; -coag negative staph in 1/2 bottle in sample 02/13/17 -possible contamination -repeat blood cultures negative -IV Vancomycin D/mayelin ID eval requested -appreciate input UTI : urine culture -Gram negative bacilli-E coli /nava sensitive -cont on Rocephin completed 3 days course LONG HX OF ETOH ABUSE : drinks Vodka -has long hx of heavy drinking -cont on DT /ETOH withdrawal protocol -no sign of withdrawal -stable to tx to medical floor Strict ETOH cessation advised. case management eval & referral to ETOH cessation program vs inpt rehab. - social service consulted -pt is not very receptive for ETOH rehab FULL CODE DVT PROPHYLAXIS SC Lovenox DISPOSITION expected to be discharged home when medically stable ordered for PT/OT eval high fall risk with functional decline Medicine follow up with Dr Khanna will need continued GI follow up Social service consulted for DC planning Vital Signs: Date Time Temp Pulse Resp B/P (MAP) Pulse Ox O2 Delivery O2 Flow Rate FiO2 02/17/17 17:43 36.8 93 20 99 2.0 02/17/17 16:00 99 Nasal Cannula 2.0 02/17/17 15:51 36.8 93 20 77/51 (60) 99 Nasal Cannula 2.0 02/17/17 12:00 Nasal Cannula 2.0 02/17/17 10:57 36.9 105 20 91/59 (70) 99 2.0 02/17/17 08:00 Nasal Cannula 2.0 02/17/17 07:55 36.7 103 20 97/62 (74) 98 2.0 02/17/17 05:33 36.7 103 18 85/52 (63) 97 02/17/17 04:10 Nasal Cannula 2.0 02/17/17 00:10 Nasal Cannula 2.0 02/16/17 23:10 37.0 99 16 86/41 (56) 96 Nasal Cannula 2.0 02/16/17 20:10 Nasal Cannula 2.0 02/16/17 18:29 37.3 105 16 92/56 (68) 93 Room Air Lab Results: Results Past 24 Hours Test 02/17/17 08:21 Range/Units White Blood Count 9.61 4.8-10.8 K/uL Red Blood Count 2.88 4.2-5.4 M/uL Hemoglobin 10.0 12.0-16.0 g/dL Hematocrit 30.5 37-47 % Mean Corpuscular Volume 105.9 80-100 fL Mean Corpuscular Hemoglobin 34.7 25-34 pg Mean Corpuscular Hemoglobin Concent 32.8 32-36 g/dl Platelet Count 154 130-400 K/uL Mean Platelet Volume 10.2 7.4-10.4 fL Neutrophils (%) (Auto) 60.1 % Lymphocytes (%) (Auto) 21.4 % Monocytes (%) (Auto) 16.1 % Eosinophils (%) (Auto) 1.7 % Basophils (%) (Auto) 0.4 % Neutrophils # (Auto) 5.77 1.4-6.5 K/uL Lymphocytes # (Auto) 2.06 1.2-3.4 K/uL Monocytes # (Auto) 1.55 0.11-0.59 K/uL Eosinophils # (Auto) 0.16 0-0.5 K/uL Basophils # (Auto) 0.04 0-0.2 K/uL RDW Standard Deviation 59.2 36.4-46.3 fL RDW Coefficient of Variation 15.4 11.5-14.5 % Immature Granulocyte % (Auto) 0.3 % Immature Granulocyte # (Auto) 0.03 0.00-0.02 K/uL Sodium Level 139 136-145 mmol/L Potassium Level 3.5 3.5-5.1 mmol/L Chloride Level 106 98-107 mmol/L Carbon Dioxide Level 26 21-32 mmol/L Anion Gap 7.0 3-11 mmol/L Blood Urea Nitrogen 6 7-18 mg/dl Creatinine 0.67 0.60-1.20 mg/dl Est Creatinine Clear Calc Drug Dose 77.1 ml/min Estimated GFR () 110.7 Estimated GFR (Non- 95.5 BUN/Creatinine Ratio 9.3 10-20 Random Glucose 92 70-99 mg/dl Calcium Level 8.2 8.5-10.1 mg/dl
[2017-02-18 00:02] VITALS: BP 81/54; PULSE 102; TEMP 37.5; O2SAT 93
[2017-02-18] MEDS: LEVOTHYROXINE 25 MCG TAB PO SCH (05:56)
[2017-02-18] MEDS ORDERED: VANCOMYCIN TROUGH ONE (07:30)
[2017-02-18 07:47] VITALS: BP 88/61; PULSE 103; TEMP 37; O2SAT 90
[2017-02-18] MEDS: FUROSEMIDE 40 MG TAB PO SCH (08:00)
[2017-02-18] MEDS: SPIRONOLACTONE 100 MG TAB PO SCH (08:00)
[2017-02-18] MEDS: POTASSIUM CHLORIDE 20 MEQ TABCR PO SCH (08:04)
[2017-02-18] MEDS: FLINTSTONES COMPLETE CHEWABLE TAB PO SCH (08:05)
[2017-02-18] MEDS: GABAPENTIN 300 MG CAP PO SCH ×3 (08:05→21:10)
[2017-02-18] MEDS: THIAMINE HCL 100 MG TAB PO SCH (08:07)
[2017-02-18] MEDS: NICOTINE 21 MG/24 HR TDSY EXT SCH (08:08)
[2017-02-18] MEDS: ENOXAPARIN 40 MG/0.4 ML SYR SC SCH (08:13)
[2017-02-18 10:06] LABS: CALCIUM 8.3 mg/dl (8.5-10.1); CREATININE 0.82 mg/dl (0.60-1.20); POTASSIUM 3.8 mmol/L (3.5-5.1)
[2017-02-18] MEDS ORDERED: MCRK20 PO (14:27)
[2017-02-18] MEDS ORDERED: SPRN100 PO (14:27)
[2017-02-18] MEDS ORDERED: SYN25 PO (14:27)
[2017-02-18] MEDS ORDERED: FLV1 PO (14:27)
[2017-02-18] MEDS ORDERED: THM100 PO (14:27)
[2017-02-18] MEDS ORDERED: LSX40 PO (14:27)
--- NOTE | 2017-02-18 14:43 | Discharge Instructions ---
Discharge Instructions Date of Service Feb 18, 2017. Admission Reason for Admission: Decompensated Hepatic Cirrhosis, Hypotension Discharge Discharge Diagnosis / Problem: ALCOHOLIC CIRRHOSIS /RECURRENT ASCITIES Discharge Goals Goal(s): Decrease discomfort, Improve disease control, Diagnostic testing, Therapeutic intervention Activity Recommendations Activity Limitations: resume your previous activity . Instructions / Follow-Up Instructions / Follow-Up HOSPITAL FOLLOW UP : 02/21/2017 11:20 AM Jeremy Maki MD Internal Medicine [facility] GASTROENTEROLOGY FOLLOW UP IN 2-3 WEEKS, OFFICE WILL CALL WITH APPOINTMENT NEED TO QUIT /HAVE COMPLETE ABSTINENCE FROM ALCOHOL -YOU ALREADY HAVE ADVANCED LIVER DISEASE DUE TO ALCOHOL CAUSING RECURRENT ACCUMULATION OF FLUID IN YOUR ABDOMEN FURTHER DRINKING WILL CALL FASTER WORSENING OF YOUR LIVER , CAUSING VERY FAST ACCUMULATION OF FLUID , INFECTION AND Current Hospital Diet Patient's current hospital diet: Low Sodium Diet (2gm Na) Discharge Diet Recommended Diet: Low Sodium Diet (2gm Na) Pending Studies Studies pending at discharge: no Medical Emergencies . Who to Call and When: Medical Emergencies: If at any time you feel your situation is an emergency, please call 911 immediately. . Non-Emergent Contact Non-Emergency issues call your: Primary Care Provider . . "Provider Documentation" section prepared by Judith Gupta. . VTE Core Measure Inpt VTE Proph given/why not?: Trisha Hernandez, SCD's
[2017-02-18 15:58] VITALS: BP 87/63; PULSE 105; TEMP 36.8; O2SAT 95
[2017-02-18] MEDS: CIPROFLOXACIN 500 MG TAB PO SCH ×2 (18:17→21:10)
[2017-02-18] MEDS: OXYCODONE HCL IR 5 MG TAB (IMMEDIATE RELEASE) PO PRN (21:16)
[2017-02-18 23:08] VITALS: BP 84/53; PULSE 96; TEMP 36.9; O2SAT 92
[2017-02-19] VITALS (8 sets, daily range): BP systolic 66–85; BP diastolic 24–55; PULSE 93–108; TEMP 36.9–37.5; O2SAT 90–93
[2017-02-19] MEDS: LEVOTHYROXINE 25 MCG TAB PO SCH (06:30)
[2017-02-19] MEDS: FUROSEMIDE 40 MG TAB PO SCH (07:53)
[2017-02-19] MEDS: SPIRONOLACTONE 100 MG TAB PO SCH (07:53)
[2017-02-19] MEDS: FLINTSTONES COMPLETE CHEWABLE TAB PO SCH (08:08)
[2017-02-19] MEDS: CIPROFLOXACIN 500 MG TAB PO SCH ×2 (08:10→21:23)
[2017-02-19] MEDS: GABAPENTIN 300 MG CAP PO SCH ×3 (08:10→21:23)
[2017-02-19] MEDS: THIAMINE HCL 100 MG TAB PO SCH (08:10)
[2017-02-19] MEDS: NICOTINE 21 MG/24 HR TDSY EXT SCH (08:11)
[2017-02-19] MEDS: ENOXAPARIN 40 MG/0.4 ML SYR SC SCH (08:11)
[2017-02-19] MEDS: POTASSIUM CHLORIDE 20 MEQ TABCR PO SCH (08:12)
[2017-02-19 08:32] LABS: BUN/CREATININE RATIO 13.2 (10-20); CALCIUM 8.1 mg/dl (8.5-10.1); CREATININE 0.81 mg/dl (0.60-1.20)
[2017-02-19] MEDS ORDERED: CPR500 PO (14:40)
--- NOTE | 2017-02-19 15:19 | Progress Note ---
Internal Med Progress Note Date of Service: Feb 19, 2017. Provider Documentation: SUBJECTIVE: pt is planned to be discharged home today found to have worsening swelling of abdomen complains of abdominal distention and pain counselled pt -she can be discharged home today but may need to come back on Tuesday for repeat paracentesis pt is very tearful , was very eager to go home today but understands that she will need repeat drainage as abdomen feels the same when she came to hospital decided to stay back for paracentesis on Tuesday OBJECTIVE: Vital Signs-as noted below Exam: General-chronically ill appearing Eyes-mildly icteric sclera ENT-NAD Neck-no JVD Lungs-diminished, no rales or wheeze noted Heart-regular S1/S2 Abdomen-worsening of distention of abdomen , + tenderness Extremities- no lower ext edema Neuro-appears to be anxious , no focal deficit Lab data as noted below. ASSESSMENT & PLAN: CHRONIC LIVER DISEASE /ALCOHOLIC CIRRHOSIS /HX OF HEP C presented with worsening of Ascites /abdominal pain /SOB : CT abdomen /pelvis : 1. Marked heterogeneity of the liver with areas of capsular attraction, parenchymal distortion, atrophy and marked fatty infiltration are again seen with progressive atrophy from prior study. Additionally, there is large volume of intra-abdominal and intrapelvic ascites. 2. Multiple loops of small bowel demonstrate wall thickening with wall thickening also seen within the distribution of the splenic flexure and transverse colon suggesting sequela of hypoproteinemia. Enteritis/colitis could cause a similar appearance. Correlate with clinical history and laboratory values. -appreciate in put form GI -no evidence of Sepsis -on empiric Abx with Rocephin F/U urine and blood cx. -s/p paracentesis of ~5 L of ascitic fluid on 02/14/17 -/ascitic fluid culture negative for SBP repeat Paracentesis with removal of 3.5 L of ascitic fluid on 02/16/17 -cont Diuresis Lasix 40mg daily, Spironolactone 100mg daily, low Na diet. -pt is counselled for strict ETOH abstinence WBC in ascitic fluid was < 100 no evidence of SBP ascitic fluid culture + ve coag negative staph possible contamination , ( gram stain -no WBC noted , few organism ) pt having worsening of abdominal distention /re accumulation of ascitic fluid Cancel plan for discharge today ordered for repeat paracentesis on Tuesday GRAM POSITIVE BACTEREMIA ; -coag negative staph in 1/2 bottle in sample 02/13/17 -possible contamination -repeat blood cultures negative -IV Vancomycin D/mayelin ID eval requested -appreciate input UTI : urine culture -Gram negative bacilli-E coli /nava sensitive -cont on Rocephin completed 3 days course LONG HX OF ETOH ABUSE : drinks Vodka -has long hx of heavy drinking -cont on DT /ETOH withdrawal protocol -no sign of withdrawal -stable to tx to medical floor Strict ETOH cessation advised. case management eval & referral to ETOH cessation program vs inpt rehab. - social service consulted -pt is not very receptive for ETOH rehab FULL CODE DVT PROPHYLAXIS SC Lovenox DISPOSITION pt declined to go to SNF -even PT/OT eval reports high risk for fall with functional decline wants to return home not interested in home health or follow up with Alcohol rehab will hold discharge home today for worsening of abdominal distention /ascites Medicine follow up with Dr Khanna will need continued GI follow up Social service consulted for DC planning Vital Signs: Date Time Temp Pulse Resp B/P (MAP) Pulse Ox O2 Delivery O2 Flow Rate FiO2 02/19/17 14:16 37.5 98 16 92 Room Air 02/19/17 09:00 92 Room Air 02/19/17 08:34 98 85/55 (65) 02/19/17 07:45 66/24 (38) 02/19/17 07:30 37.5 93 16 70/48 (55) 92 Room Air 02/19/17 00:00 Room Air 02/18/17 23:08 36.9 96 16 84/53 (63) 92 Room Air 02/18/17 16:53 Room Air 02/18/17 15:58 36.8 105 16 87/63 (71) 95 Lab Results: Results Past 24 Hours Test 02/19/17 07:39 Range/Units Sodium Level 139 136-145 mmol/L Potassium Level 4.0 3.5-5.1 mmol/L Chloride Level 106 98-107 mmol/L Carbon Dioxide Level 24 21-32 mmol/L Anion Gap 9.0 3-11 mmol/L Blood Urea Nitrogen 11 7-18 mg/dl Creatinine 0.81 0.60-1.20 mg/dl Est Creatinine Clear Calc Drug Dose 63.8 ml/min Estimated GFR () 91.5 Estimated GFR (Non- 78.9 BUN/Creatinine Ratio 13.2 10-20 Random Glucose 68 70-99 mg/dl Calcium Level 8.1 8.5-10.1 mg/dl
[2017-02-19] MEDS: OXYCODONE HCL IR 5 MG TAB (IMMEDIATE RELEASE) PO PRN ×2 (16:19→21:24)
[2017-02-20 01:45] VITALS: BP 85/56; PULSE 98
[2017-02-20] MEDS: LEVOTHYROXINE 25 MCG TAB PO SCH (06:30)
[2017-02-20 07:18] VITALS: BP 62/44; PULSE 94; TEMP 36.9; O2SAT 91
[2017-02-20] MEDS: FUROSEMIDE 40 MG TAB PO SCH (08:00)
[2017-02-20] MEDS: SPIRONOLACTONE 100 MG TAB PO SCH (08:00)
[2017-02-20 08:15] LABS: HEMATOCRIT 28.5 % (37-47); MEAN CELL VOLUME 105.6 fL (80-100); MEAN CORPUSCULAR HEMOGLOBIN 35.2 pg (25-34); MEAN CORPUSCULAR HGB CONC 33.3 g/dl (32-36); PLATELET COUNT 201 K/uL (130-400); WHITE BLOOD COUNT 9.43 K/uL (4.8-10.8)
[2017-02-20] MEDS: NICOTINE 21 MG/24 HR TDSY EXT SCH (08:25)
[2017-02-20] MEDS: GABAPENTIN 300 MG CAP PO SCH ×3 (08:26→21:06)
[2017-02-20] MEDS: POTASSIUM CHLORIDE 20 MEQ TABCR PO SCH (08:27)
[2017-02-20] MEDS: FLINTSTONES COMPLETE CHEWABLE TAB PO SCH (08:27)
[2017-02-20] MEDS: THIAMINE HCL 100 MG TAB PO SCH (08:27)
[2017-02-20] MEDS: CIPROFLOXACIN 500 MG TAB PO SCH ×2 (08:27→21:03)
[2017-02-20] MEDS: ENOXAPARIN 40 MG/0.4 ML SYR SC SCH (08:29)
[2017-02-20 08:44] LABS: BUN/CREATININE RATIO 14.1 (10-20); CALCIUM 8.2 mg/dl (8.5-10.1); CREATININE 0.88 mg/dl (0.60-1.20); POTASSIUM 4.3 mmol/L (3.5-5.1)
[2017-02-20 09:29] LABS: BASO % 0.8 %; BASO ABS # 0.08 K/uL (0-0.2); COMPLETE YES; EOS % 1.8 %; IG% 0.3 %; LYMPH % 25.6 %; LYMPH ABS # 2.41 K/uL (1.2-3.4); MONO % 15.7 %; NEUT % 55.8 %
[2017-02-20] MEDS ORDERED: VANCOMYCIN INJ 1,000 MG in SODIUM CHLORIDE 0.9% 250ML 250 ML IV SCH ×2 (12:41→21:00)
[2017-02-20] MEDS ORDERED: VANCOMYCIN CONSULT ACTIVE PRN (13:30)
[2017-02-20] MEDS ORDERED: VANCOMYCIN INJ 1,750 MG in SODIUM CHLORIDE 0.9% 500ML 500 ML IV STA (13:35)
--- NOTE | 2017-02-20 13:55 | Pharmacy Progress Note ---
Pharmacy Antibiotic Consult Date of Service: Feb 20, 2017. Pharmacy Dosing Scope Pharmacy is consulted to resume vancomycin IV dosing therapy, order appropriate labs and adjust drug dose/frequency. Subjective The patient is a 61 year old female admitted on Feb 13, 2017 at 20:13. Objective Height (Feet): 5 Height (Inches): 4.00 Weight (Kilograms): 61.100 Lab Results (24hrs): Test 02/20/17 07:57 White Blood Count 9.43 K/uL (4.8-10.8) Red Blood Count 2.70 M/uL (4.2-5.4) Hemoglobin 9.5 g/dL (12.0-16.0) Hematocrit 28.5 % (37-47) Mean Corpuscular Volume 105.6 fL (80-100) Mean Corpuscular Hemoglobin 35.2 pg (25-34) Mean Corpuscular Hemoglobin Concent 33.3 g/dl (32-36) Platelet Count 201 K/uL (130-400) Mean Platelet Volume 10.0 fL (7.4-10.4) Neutrophils (%) (Auto) 55.8 % Lymphocytes (%) (Auto) 25.6 % Monocytes (%) (Auto) 15.7 % Eosinophils (%) (Auto) 1.8 % Basophils (%) (Auto) 0.8 % Neutrophils # (Auto) 5.26 K/uL (1.4-6.5) Lymphocytes # (Auto) 2.41 K/uL (1.2-3.4) Monocytes # (Auto) 1.48 K/uL (0.11-0.59) Eosinophils # (Auto) 0.17 K/uL (0-0.5) Basophils # (Auto) 0.08 K/uL (0-0.2) RDW Standard Deviation 56.7 fL (36.4-46.3) RDW Coefficient of Variation 14.8 % (11.5-14.5) Immature Granulocyte % (Auto) 0.3 % Immature Granulocyte # (Auto) 0.03 K/uL (0.00-0.02) Sodium Level 138 mmol/L (136-145) Potassium Level 4.3 mmol/L (3.5-5.1) Chloride Level 107 mmol/L (98-107) Carbon Dioxide Level 25 mmol/L (21-32) Anion Gap 6.0 mmol/L (3-11) Blood Urea Nitrogen 12 mg/dl (7-18) Creatinine 0.88 mg/dl (0.60-1.20) Est Creatinine Clear Calc Drug Dose 58.7 ml/min Estimated GFR () 82.8 Estimated GFR (Non- 71.4 BUN/Creatinine Ratio 14.1 (10-20) Random Glucose 70 mg/dl (70-99) Calcium Level 8.2 mg/dl (8.5-10.1) Assessment & Plan Assessment * 61 yo F admitted w ascites 2nd EtOH cirrhosis/Hep C now found to have MRSA SBP * Antibiotic course this admission * Ceftriaxone x4 days for E. coli UTI - completed * Vancomycin started 02/14 for 1 blood cultures with GPC. Discontinued 02/17 as coag negative Staph isolated thought to be contaminant. Resumed today (02/20 ) as MRSA isolated in ascites fluid obtained 02/14 * Goal vancomycin trough 15-20 mcg/mL * Previously this admission, maintenance dose of 1000 mg IV q14h produced a vancomycin trough of 21.0 mcg/mL * OK to give full loading dose now as patient has not received vancomycin in 72 hours * Will schedule maintenance dose at slightly lower than previous 2nd slightly supratherapeutic trough * Trough prior to 4th overall dose Plan * Vancomycin 1750 mg IV x1 now then 1000 mg IV q16h * Trough 02/22 @ 1330 Pharmacy will continue to follow and will adjust dose/frequency as necessary. Thank you
[2017-02-20] MEDS: OXYCODONE HCL IR 5 MG TAB (IMMEDIATE RELEASE) PO PRN ×2 (14:59→21:03)
[2017-02-20 15:24] VITALS: BP 66/29; PULSE 54; TEMP 36.6; O2SAT 94
--- NOTE | 2017-02-20 19:55 | Progress Note ---
Medicine Progress Note Date & Time of Visit: Feb 20, 2017 at 19:55. Subjective Pt was seen and examined Lying in bed with no distress Pt said that she continues to have abdominal tenderness she wants to go home tomorrow after paracentesis denies any chest pain, palpitation, dizziness Objective Last 8 Hrs Date Time Temp Pulse Resp B/P (MAP) Pulse Ox O2 Delivery O2 Flow Rate FiO2 02/20/17 16:00 Room Air 02/20/17 15:24 36.6 54 20 66/29 (41) 94 Room Air Physical Exam: General- No acute distress Head- atraumatic Eyes- PERRL, EOMI ENT- oropharynx clear Neck- supple, no JVD Lungs- clear to auscultation Heart- regular rhythm Abdomen- +tender, +ascites Extremities- no calf tenderness Neuro- alert, oriented x 3; PERRL, EOMI Skin- warm & dry Laboratory Results: Last 24 Hours Test 02/20/17 07:57 White Blood Count 9.43 K/uL Red Blood Count 2.70 M/uL Hemoglobin 9.5 g/dL Hematocrit 28.5 % Mean Corpuscular Volume 105.6 fL Mean Corpuscular Hemoglobin 35.2 pg Mean Corpuscular Hemoglobin Concent 33.3 g/dl Platelet Count 201 K/uL Mean Platelet Volume 10.0 fL Neutrophils (%) (Auto) 55.8 % Lymphocytes (%) (Auto) 25.6 % Monocytes (%) (Auto) 15.7 % Eosinophils (%) (Auto) 1.8 % Basophils (%) (Auto) 0.8 % Neutrophils # (Auto) 5.26 K/uL Lymphocytes # (Auto) 2.41 K/uL Monocytes # (Auto) 1.48 K/uL Eosinophils # (Auto) 0.17 K/uL Basophils # (Auto) 0.08 K/uL RDW Standard Deviation 56.7 fL RDW Coefficient of Variation 14.8 % Immature Granulocyte % (Auto) 0.3 % Immature Granulocyte # (Auto) 0.03 K/uL Sodium Level 138 mmol/L Potassium Level 4.3 mmol/L Chloride Level 107 mmol/L Carbon Dioxide Level 25 mmol/L Anion Gap 6.0 mmol/L Blood Urea Nitrogen 12 mg/dl Creatinine 0.88 mg/dl Est Creatinine Clear Calc Drug Dose 58.7 ml/min Estimated GFR () 82.8 Estimated GFR (Non- 71.4 BUN/Creatinine Ratio 14.1 Random Glucose 70 mg/dl Calcium Level 8.2 mg/dl Assessment & Plan CHRONIC LIVER DISEASE /ALCOHOLIC CIRRHOSIS /HX OF HEP C presented with worsening of Ascites /abdominal pain /SOB S/p paracentesis x2: 5 L of ascitic fluid on 02/14/17 and repeat Paracentesis with removal of 3.5 L of ascitic fluid on 02/16/17 Cont Diuresis Lasix 40mg daily, Spironolactone 100mg daily, low Na diet. 1500 ml Fluid restriction On empiric Abx with Rocephin Ascites fluid on 02/14 positive for staph aureus will restart IV vanco Will notify ID Plan for paracentesis on Tuesday CT abdomen /pelvis 1. Marked heterogeneity of the liver with areas of capsular attraction, parenchymal distortion, atrophy and marked fatty infiltration are again seen with progressive atrophy from prior study. Additionally, there is large volume of intra-abdominal and intrapelvic ascites. 2. Multiple loops of small bowel demonstrate wall thickening with wall thickening also seen within the distribution of the splenic flexure and transverse colon suggesting sequela of hypoproteinemia. Enteritis/colitis could cause a similar appearance. Correlate with clinical history and laboratory values. GRAM POSITIVE BACTEREMIA ; coag negative staph in / bottle in sample 02/13/17 possible contamination repeat blood cultures negative IV Vancomycin D/mayelin ID eval requested -appreciate input UTI : urine culture -Gram negative bacilli-E coli /nava sensitive Was on Rocephin completed 3 days course LONG HX OF ETOH ABUSE : drinks Vodka -has long hx of heavy drinking cont on DT /ETOH withdrawal protocol no sign of withdrawal -stable to tx to medical floor Strict ETOH cessation advised. case management eval & referral to ETOH cessation program vs inpt rehab. - social service consulted Pt wants to go home FULL CODE DVT PROPHYLAXIS SC Lovenox DISPOSITION pt declined to go to SNF -even PT/OT eval reports high risk for fall with functional decline wants to return home Refused to go to Alcohol rehab Current Inpatient Medications: Current Inpatient Medications Medications (Trade) Dose Ordered Sig/Shelby Route Start Time Stop Time Status Last Admin Dose Admin Enoxaparin Sodium (Lovenox Inj) 40 mg Q24H SC 02/14/17 09:00 03/16/17 08:59 02/20/17 08:29 40 MG Acetaminophen (Tylenol Tab) 325 mg Q6H PRN PO 02/13/17 20:30 03/15/17 20:29 Oxycodone HCl (Roxicodone Immediate Rel Tab) 5 mg Q4H PRN PO 02/13/17 20:30 02/27/17 20:29 02/20/17 14:59 5 MG Ondansetron HCl (Zofran Inj) 4 mg Q6H PRN IV 02/13/17 20:30 03/15/17 20:29 02/16/17 19:41 4 MG Gabapentin (Neurontin Cap) 300 mg TID PO 02/13/17 21:00 03/15/17 20:59 02/20/17 15:00 300 MG Thiamine HCl (Vitamin B-1 Tab) 100 mg QAM PO 02/14/17 09:00 03/16/17 08:59 02/20/17 08:27 100 MG Multivitamins (Flintstones Complete Tab) 1 tab QAM PO 02/14/17 09:00 03/16/17 08:59 02/20/17 08:27 1 TAB Folic Acid (Folvite Tab) 1 mg QAM PO 02/14/17 09:00 03/16/17 08:59 02/20/17 08:28 1 MG Hydromorphone HCl (Dilaudid Inj) 0.5 mg Q4H PRN IV 02/13/17 20:45 02/27/17 20:44 Ipratropium [place] (Atrovent 0.02% 0.5MG/2.5ML Neb) 0.5 mg Q4H PRN INH 02/13/17 20:45 03/15/17 20:44 Levalbuterol (Xopenex 1.25MG/ 0.5ML Neb) 1.25 mg Q4H PRN INH 02/13/17 20:45 03/15/17 20:44 Lorazepam (Ativan Inj) PRN Dosing -Active Protocol Q1H PRN IV 02/14/17 08:30 03/16/17 08:29 Furosemide (Lasix Tab) 40 mg QAM PO 02/15/17 09:00 03/17/17 08:59 02/17/17 07:37 40 MG Spironolactone (Aldactone Tab) 100 mg QAM PO 02/15/17 09:00 03/17/17 08:59 02/17/17 07:36 100 MG Potassium Chloride (Klor-Con Tab) 20 meq DAILY PO 02/15/17 09:00 03/17/17 08:59 02/20/17 08:27 20 MEQ Nicotine (Nicoderm Cq 21MG Patch) 1 patch QAM EXT 02/14/17 19:30 03/16/17 19:29 02/20/17 08:25 1 PATCH Miscellaneous (Remove Nicoderm Patch) 1 ea QPM N/A 02/14/17 23:00 03/16/17 22:59 02/19/17 21:28 1 EA Levothyroxine Sodium (Synthroid Tab) 25 mcg DAILYBB PO 02/15/17 06:00 03/17/17 05:59 02/20/17 06:30 25 MCG Ciprofloxacin (Cipro Tab) 500 mg Q12 PO 02/18/17 14:30 02/23/17 14:29 02/20/17 08:27 500 MG Albumin Human (Albumin 25%) 12.5 gm TODAY@1100 IV 02/21/17 11:00 02/21/17 18:00 Vancomycin HCl (Consult) 1 ea UD PRN N/A 02/20/17 13:30 03/22/17 13:29 Vancomycin HCl 1000 mg/Sodium Chloride 270 ml @ 125 mls/hr Q16H IV 02/21/17 06:00 03/03/17 05:59
--- NOTE | 2017-02-20 19:58 | Progress Note ---
Medicine Progress Note Date & Time of Visit: Feb 20, 2017 at 19:57. Objective Last 8 Hrs Date Time Temp Pulse Resp B/P (MAP) Pulse Ox O2 Delivery O2 Flow Rate FiO2 02/20/17 16:00 Room Air 02/20/17 15:24 36.6 54 20 66/29 (41) 94 Room Air Physical Exam: General-[] Eyes-[] ENT-[] Neck-[] Lungs-[] Heart-[] Abdomen-[] Extremities-[] Neuro-[] Laboratory Results: Last 24 Hours Test 02/20/17 07:57 White Blood Count 9.43 K/uL Red Blood Count 2.70 M/uL Hemoglobin 9.5 g/dL Hematocrit 28.5 % Mean Corpuscular Volume 105.6 fL Mean Corpuscular Hemoglobin 35.2 pg Mean Corpuscular Hemoglobin Concent 33.3 g/dl Platelet Count 201 K/uL Mean Platelet Volume 10.0 fL Neutrophils (%) (Auto) 55.8 % Lymphocytes (%) (Auto) 25.6 % Monocytes (%) (Auto) 15.7 % Eosinophils (%) (Auto) 1.8 % Basophils (%) (Auto) 0.8 % Neutrophils # (Auto) 5.26 K/uL Lymphocytes # (Auto) 2.41 K/uL Monocytes # (Auto) 1.48 K/uL Eosinophils # (Auto) 0.17 K/uL Basophils # (Auto) 0.08 K/uL RDW Standard Deviation 56.7 fL RDW Coefficient of Variation 14.8 % Immature Granulocyte % (Auto) 0.3 % Immature Granulocyte # (Auto) 0.03 K/uL Sodium Level 138 mmol/L Potassium Level 4.3 mmol/L Chloride Level 107 mmol/L Carbon Dioxide Level 25 mmol/L Anion Gap 6.0 mmol/L Blood Urea Nitrogen 12 mg/dl Creatinine 0.88 mg/dl Est Creatinine Clear Calc Drug Dose 58.7 ml/min Estimated GFR () 82.8 Estimated GFR (Non- 71.4 BUN/Creatinine Ratio 14.1 Random Glucose 70 mg/dl Calcium Level 8.2 mg/dl Assessment & Plan Current Inpatient Medications: Current Inpatient Medications Medications (Trade) Dose Ordered Sig/Shelby Route Start Time Stop Time Status Last Admin Dose Admin Enoxaparin Sodium (Lovenox Inj) 40 mg Q24H SC 02/14/17 09:00 11/1/17 08:59 02/20/17 08:29 40 MG Acetaminophen (Tylenol Tab) 325 mg Q6H PRN PO 02/13/17 20:30 03/15/17 20:29 Oxycodone HCl (Roxicodone Immediate Rel Tab) 5 mg Q4H PRN PO 02/13/17 20:30 02/27/17 20:29 02/20/17 14:59 5 MG Ondansetron HCl (Zofran Inj) 4 mg Q6H PRN IV 02/13/17 20:30 03/15/17 20:29 02/16/17 19:41 4 MG Gabapentin (Neurontin Cap) 300 mg TID PO 02/13/17 21:00 03/15/17 20:59 02/20/17 15:00 300 MG Thiamine HCl (Vitamin B-1 Tab) 100 mg QAM PO 02/14/17 09:00 03/16/17 08:59 02/20/17 08:27 100 MG Multivitamins (Flintstones Complete Tab) 1 tab QAM PO 02/14/17 09:00 03/16/17 08:59 02/20/17 08:27 1 TAB Folic Acid (Folvite Tab) 1 mg QAM PO 02/14/17 09:00 03/16/17 08:59 02/20/17 08:28 1 MG Hydromorphone HCl (Dilaudid Inj) 0.5 mg Q4H PRN IV 02/13/17 20:45 02/27/17 20:44 Ipratropium [place] (Atrovent 0.02% 0.5MG/2.5ML Neb) 0.5 mg Q4H PRN INH 02/13/17 20:45 03/15/17 20:44 Levalbuterol (Xopenex 1.25MG/ 0.5ML Neb) 1.25 mg Q4H PRN INH 02/13/17 20:45 03/15/17 20:44 Lorazepam (Ativan Inj) PRN Dosing -Active Protocol Q1H PRN IV 02/14/17 08:30 03/16/17 08:29 Furosemide (Lasix Tab) 40 mg QAM PO 02/15/17 09:00 03/17/17 08:59 02/17/17 07:37 40 MG Spironolactone (Aldactone Tab) 100 mg QAM PO 02/15/17 09:00 03/17/17 08:59 02/17/17 07:36 100 MG Potassium Chloride (Klor-Con Tab) 20 meq DAILY PO 02/15/17 09:00 03/17/17 08:59 02/20/17 08:27 20 MEQ Nicotine (Nicoderm Cq 21MG Patch) 1 patch QAM EXT 02/14/17 19:30 03/16/17 19:29 02/20/17 08:25 1 PATCH Miscellaneous (Remove Nicoderm Patch) 1 ea QPM N/A 02/14/17 23:00 03/16/17 22:59 02/19/17 21:28 1 EA Levothyroxine Sodium (Synthroid Tab) 25 mcg DAILYBB PO 02/15/17 06:00 03/17/17 05:59 02/20/17 06:30 25 MCG Ciprofloxacin (Cipro Tab) 500 mg Q12 PO 02/18/17 14:30 02/23/17 14:29 02/20/17 08:27 500 MG Albumin Human (Albumin 25%) 12.5 gm TODAY@1100 IV 02/21/17 11:00 02/21/17 18:00 Vancomycin HCl (Consult) 1 ea UD PRN N/A 02/20/17 13:30 03/22/17 13:29 Vancomycin HCl 1000 mg/Sodium Chloride 270 ml @ 125 mls/hr Q16H IV 02/21/17 06:00 03/03/17 05:59
[2017-02-21] VITALS: BP 85/51; PULSE 100; TEMP 37.6; O2SAT 92
[2017-02-21] MEDS: VANCOMYCIN INJ 1,000 MG in SODIUM CHLORIDE 0.9% 250ML 250 ML IV SCH ×2 (05:49→21:41)
[2017-02-21] MEDS: LEVOTHYROXINE 25 MCG TAB PO SCH (05:49)
[2017-02-21] MEDS: OXYCODONE HCL IR 5 MG TAB (IMMEDIATE RELEASE) PO PRN ×3 (06:39→21:42)
[2017-02-21 07:12] LABS: CREATININE 0.89 mg/dl (0.60-1.20)
[2017-02-21 07:21] VITALS: BP 73/45; PULSE 95; TEMP 36.8; O2SAT 94
[2017-02-21] MEDS ORDERED: NURSING VERBAL MED ORDER ONE (08:15)
[2017-02-21] MEDS ORDERED: ALBUMIN HUMAN 25% 12.5 GM/50 ML VIAL IV SCH ×2 (09:00→11:00)
[2017-02-21] MEDS: NICOTINE 21 MG/24 HR TDSY EXT SCH (09:02)
[2017-02-21 09:45] VITALS: BP 85/56
--- NOTE | 2017-02-21 10:15 | Progress Note ---
Subjective Date of Service: Feb 21, 2017. Subjective spoke with primary, culture done from ascites fluid on 02/14 grew rare MRSA, became + yesterday. Only 91 wbc. blood cultures negative. had ascites removed on 02/16 as well, no cultures. had repeat paracentesis today as well. She was placed on vanco yesterday. afebrile, wbc nml. wants to go home. Problem List Medical Problems: (1) Ambulatory dysfunction Status: Acute (2) Ascites Status: Acute (3) Chest wall contusion Status: Acute (4) Chest wall pain Status: Acute (5) Diffuse abdominal pain Status: Acute (6) Elevated bilirubin Status: Acute (7) Hypomagnesemia Status: Acute (8) Hypotension Status: Acute (9) Paresthesia Status: Acute (10) Partial small bowel obstruction Status: Acute (11) Symptomatic anemia Status: Acute Objective Vital Signs Date Time Temp Pulse Resp B/P (MAP) Pulse Ox O2 Delivery O2 Flow Rate FiO2 02/21/17 07:21 36.8 95 20 73/45 (54) 94 Room Air 02/21/17 00:00 37.6 100 16 85/51 (62) 92 Room Air 02/20/17 20:00 Room Air 02/20/17 16:00 Room Air 02/20/17 15:24 36.6 54 20 66/29 (41) 94 Room Air Laboratory Results Item Value Date Time Blood Culture - Final Complete 02/13/17 2101 Blood NO GROWTH Gram Stain - Final Complete 02/14/17 0000 Ascities Fluid Blood Culture - Final Complete 02/15/17 1302 Blood NO GROWTH Blood Culture - Final Complete 02/15/17 1309 Blood NO GROWTH Last 24 Hours Test 02/21/17 00:00 02/21/17 06:08 Creatinine 0.89 mg/dl Est Creatinine Clear Calc Drug Dose 58.0 ml/min Estimated GFR () 81.6 Estimated GFR (Non- 70.4 Assessment and Plan (1) Peritonitis Assessment & Plan: unclear significance of MRSA growing in rare amount many days after culture (6 days) but would suggest treating with abx. repeat fluid obtained today. blood cultures are negative. She is on vanco currently, would continue this for now, if she is to be d/c would suggest doxy 100mg po bid x 21 days.
--- NOTE | 2017-02-21 10:26 | DIAGNOSTIC IMAGING REPORT ---
PARACENTESIS UNDER ULTRASOUND GUIDANCE CLINICAL HISTORY: recurrent ascites COMPARISON STUDY: No previous studies for comparison. FINDINGS: The risks, benefits, and alternatives to the procedure were discussed with the patient. Written informed consent was obtained. Following real-time ultrasound localization, the skin was prepped and draped. Following local anesthesia with Xylocaine, the sheath paracentesis needle was inserted and approximately 3.8 liters of straw-colored fluid was removed by vacuum suction. The patient tolerated the procedure well and left the department in satisfactory condition. IMPRESSION: Successful ultrasound-guided paracentesis with removal of approximately 3.8 liters of ascitic fluid. Electronically signed by: Dalton Hassan M.D. 02/21/2017 10:25 AM Dictated Date/Time: 02/21/2017 10:24 AM
[2017-02-21] MEDS: FLINTSTONES COMPLETE CHEWABLE TAB PO SCH (10:33)
[2017-02-21] MEDS: THIAMINE HCL 100 MG TAB PO SCH (10:34)
[2017-02-21] MEDS: GABAPENTIN 300 MG CAP PO SCH ×3 (10:34→20:20)
[2017-02-21] MEDS: CIPROFLOXACIN 500 MG TAB PO SCH ×2 (10:35→20:19)
[2017-02-21] MEDS: POTASSIUM CHLORIDE 20 MEQ TABCR PO SCH (10:35)
[2017-02-21] MEDS: SPIRONOLACTONE 100 MG TAB PO SCH (10:36)
[2017-02-21] MEDS: ENOXAPARIN 40 MG/0.4 ML SYR SC SCH (10:36)
[2017-02-21] MEDS: FUROSEMIDE 40 MG TAB PO SCH (10:36)
[2017-02-21 11:59] LABS: PERIT FL WBC 141 /uL (0-300); PERITONEAL FLUID RBC < 3000 /uL
[2017-02-21 15:29] VITALS: BP 129/37; PULSE 101; TEMP 36.7; O2SAT 94
[2017-02-21 16:55] VITALS: BP 97/66; PULSE 85; TEMP 36.6; O2SAT 94
--- NOTE | 2017-02-21 21:30 | Progress Note ---
Medicine Progress Note Date & Time of Visit: Feb 21, 2017 at 21:23. Subjective Pt was seen and examined Lying in bed comfortable with no distress with daughter present Pt said that she feels fine she wants to go home refused to participate to PT had paracentesis done today denies any chest pain, palpitation, dizziness and sob Objective Last 8 Hrs Date Time Temp Pulse Resp B/P (MAP) Pulse Ox O2 Delivery O2 Flow Rate FiO2 02/21/17 16:00 Room Air 02/21/17 15:29 36.7 101 20 129/37 (67) 94 Room Air Physical Exam: General- No acute distress Head- atraumatic Eyes- PERRL, EOMI ENT- oropharynx clear Neck- supple, no JVD Lungs- clear to auscultation Heart- regular rhythm Abdomen- +tender, +ascites Extremities- no calf tenderness Neuro- alert, oriented x 3; PERRL, EOMI Skin- warm & dry Laboratory Results: Last 24 Hours Test 02/21/17 00:00 02/21/17 06:08 Peritoneal Fluid Color YELLOW Peritoneal Fluid Appearance HAZY Peritoneal Fluid WBC 141 /uL Peritoneal Fluid RBC < 3000 /uL Peritoneal Fld Mononuclear WBCs (%) 90.7 % Peritoneal Fld Polynuclear WBCs (%) 9.3 % Peritoneal Fluid Total Protein 1.4 g/dl Peritoneal Fluid LDH 45 IU Peritoneal Fluid Glucose 78 mg/dl Peritoneal Fluid Amylase 19 U/L Peritoneal Fluid Lipase 98 U/L Peritoneal Fluid Triglycerides 41 mg/dl Creatinine 0.89 mg/dl Est Creatinine Clear Calc Drug Dose 58.0 ml/min Estimated GFR () 81.6 Estimated GFR (Non- 70.4 Date/Time Source Procedure Growth Status 02/21/17 00:00 Ascities Fluid Gram Stain Pending Received 02/21/17 00:00 Ascities Fluid Bacterial Culture Pending Received Assessment & Plan CHRONIC LIVER DISEASE /ALCOHOLIC CIRRHOSIS /HX OF HEP C presented with worsening of Ascites /abdominal pain /SOB S/p paracentesis x3: 5 L of ascitic fluid on 02/14/17 and removal of 3.5 L of ascitic fluid on 08/30 Repeat paracentesis done today where 3.8 L ascitic fluid removed Albumin given pre and post paracentesis Cont Diuresis Lasix 40mg daily, Spironolactone 100mg daily, low Na diet. 1500 ml Fluid restriction Ascites fluid on 02/14 positive for staph aureus will restart IV vanco Case discussed with IV, recommended to continue Vanco will d/c cipro If decides to discharge, can do doxy bid for 21 days repeat ascitic fluid sent for cx CT abdomen /pelvis 1. Marked heterogeneity of the liver with areas of capsular attraction, parenchymal distortion, atrophy and marked fatty infiltration are again seen with progressive atrophy from prior study. Additionally, there is large volume of intra-abdominal and intrapelvic ascites. 2. Multiple loops of small bowel demonstrate wall thickening with wall thickening also seen within the distribution of the splenic flexure and transverse colon suggesting sequela of hypoproteinemia. Enteritis/colitis could cause a similar appearance. Correlate with clinical history and laboratory values. GRAM POSITIVE BACTEREMIA ; coag negative staph in 05/17 bottle in sample 02/13/17 possible contamination repeat blood cultures negative Was on IV vanco Afebrile UTI : urine culture -Gram negative bacilli-E coli /nava sensitive Was on Rocephin completed 3 days course LONG HX OF ETOH ABUSE : drinks Vodka -has long hx of heavy drinking cont on DT /ETOH withdrawal protocol no sign of withdrawal -stable to tx to medical floor Strict ETOH cessation advised. case management eval & referral to ETOH cessation program vs inpt rehab. - social service consulted Pt wants to go home counseling on smoking cessation FULL CODE DVT PROPHYLAXIS SC Lovenox DISPOSITION pt declined to go to SNF -even PT/OT eval reports high risk for fall with functional decline wants to return home Refused to go to Alcohol rehab Consultants: ID Current Inpatient Medications: Current Inpatient Medications Medications (Trade) Dose Ordered Sig/Shelby Route Start Time Stop Time Status Last Admin Dose Admin Enoxaparin Sodium (Lovenox Inj) 40 mg Q24H SC 02/14/17 09:00 03/16/17 08:59 02/21/17 10:36 40 MG Acetaminophen (Tylenol Tab) 325 mg Q6H PRN PO 02/13/17 20:30 03/15/17 20:29 Oxycodone HCl (Roxicodone Immediate Rel Tab) 5 mg Q4H PRN PO 02/13/17 20:30 02/27/17 20:29 02/21/17 14:22 5 MG Ondansetron HCl (Zofran Inj) 4 mg Q6H PRN IV 02/13/17 20:30 03/15/17 20:29 02/16/17 19:41 4 MG Gabapentin (Neurontin Cap) 300 mg TID PO 02/13/17 21:00 03/15/17 20:59 02/21/17 20:20 300 MG Thiamine HCl (Vitamin B-1 Tab) 100 mg QAM PO 02/14/17 09:00 03/16/17 08:59 02/21/17 10:34 100 MG Multivitamins (Flintstones Complete Tab) 1 tab QAM PO 02/14/17 09:00 03/16/17 08:59 02/21/17 10:33 1 TAB Folic Acid (Folvite Tab) 1 mg QAM PO 02/14/17 09:00 03/16/17 08:59 02/21/17 10:34 1 MG Hydromorphone HCl (Dilaudid Inj) 0.5 mg Q4H PRN IV 02/13/17 20:45 02/27/17 20:44 Ipratropium [place] (Atrovent 0.02% 0.5MG/2.5ML Neb) 0.5 mg Q4H PRN INH 02/13/17 20:45 03/15/17 20:44 Levalbuterol (Xopenex 1.25MG/ 0.5ML Neb) 1.25 mg Q4H PRN INH 02/13/17 20:45 03/15/17 20:44 Lorazepam (Ativan Inj) PRN Dosing -Active Protocol Q1H PRN IV 02/14/17 08:30 03/16/17 08:29 Furosemide (Lasix Tab) 40 mg QAM PO 02/15/17 09:00 03/17/17 08:59 02/17/17 07:37 40 MG Spironolactone (Aldactone Tab) 100 mg QAM PO 02/15/17 09:00 03/17/17 08:59 02/17/17 07:36 100 MG Potassium Chloride (Klor-Con Tab) 20 meq DAILY PO 02/15/17 09:00 03/17/17 08:59 02/21/17 10:35 20 MEQ Nicotine (Nicoderm Cq 21MG Patch) 1 patch QAM EXT 02/14/17 19:30 03/16/17 19:29 02/21/17 09:02 1 PATCH Miscellaneous (Remove Nicoderm Patch) 1 ea QPM N/A 02/14/17 23:00 03/16/17 22:59 02/21/17 20:18 1 EA Levothyroxine Sodium (Synthroid Tab) 25 mcg DAILYBB PO 02/15/17 06:00 03/17/17 05:59 02/21/17 05:49 25 MCG Ciprofloxacin (Cipro Tab) 500 mg Q12 PO 02/18/17 14:30 02/23/17 14:29 02/21/17 20:19 500 MG Vancomycin HCl (Consult) 1 ea UD PRN N/A 02/20/17 13:30 03/22/17 13:29 Vancomycin HCl 1000 mg/Sodium Chloride 270 ml @ 125 mls/hr Q16H IV 02/21/17 06:00 03/03/17 05:59 02/21/17 05:49 125 MLS/HR
[2017-02-21 23:12] VITALS: BP 81/52; PULSE 98; TEMP 36.3; O2SAT 94
[2017-02-22] MEDS: LEVOTHYROXINE 25 MCG TAB PO SCH (05:55)
[2017-02-22 07:00] VITALS: BP 81/42; PULSE 62; TEMP 36.6; O2SAT 91
[2017-02-22] MEDS: THIAMINE HCL 100 MG TAB PO SCH (08:52)
[2017-02-22] MEDS: POTASSIUM CHLORIDE 20 MEQ TABCR PO SCH (08:53)
[2017-02-22] MEDS: FLINTSTONES COMPLETE CHEWABLE TAB PO SCH (08:53)
[2017-02-22] MEDS: FUROSEMIDE 40 MG TAB PO SCH (08:53)
[2017-02-22] MEDS: SPIRONOLACTONE 100 MG TAB PO SCH (08:53)
[2017-02-22] MEDS: CIPROFLOXACIN 500 MG TAB PO SCH (08:53)
[2017-02-22] MEDS: ENOXAPARIN 40 MG/0.4 ML SYR SC SCH (08:54)
[2017-02-22] MEDS: NICOTINE 21 MG/24 HR TDSY EXT SCH (08:54)
[2017-02-22] MEDS: GABAPENTIN 300 MG CAP PO SCH ×2 (08:54→14:23)
[2017-02-22] MEDS ORDERED: VANCOMYCIN TROUGH ONE (13:30)
[2017-02-22 13:57] LABS: HEMATOCRIT 28.4 % (37-47); MEAN CELL VOLUME 105.2 fL (80-100); MEAN CORPUSCULAR HEMOGLOBIN 34.8 pg (25-34); MEAN CORPUSCULAR HGB CONC 33.1 g/dl (32-36); MEAN PLATELET VOLUME 10.3 fL (7.4-10.4); PLATELET COUNT 260 K/uL (130-400); WHITE BLOOD COUNT 12.17 K/uL (4.8-10.8)
[2017-02-22 14:22] LABS: BUN/CREATININE RATIO 11.1 (10-20); POTASSIUM 4.4 mmol/L (3.5-5.1)
[2017-02-22] MEDS: VANCOMYCIN INJ 1,000 MG in SODIUM CHLORIDE 0.9% 250ML 250 ML IV SCH (14:23)
[2017-02-22] MEDS: OXYCODONE HCL IR 5 MG TAB (IMMEDIATE RELEASE) PO PRN ×2 (14:23→19:04)
[2017-02-22 15:15] VITALS: BP 58/43; PULSE 104; TEMP 36.6; O2SAT 94
--- NOTE | 2017-02-22 15:45 | Pharmacy Progress Note ---
Pharmacy Abx Dose Short Note Date of Service Feb 22, 2017. Assessment & Plan Assessment * 61 year old female receiving VANCOMYCIN IV for treatment of MRSA SBP in the setting of Hepatitis C, cirrhosis * Day # 9 of antimicrobial therapy * Renal fxn may be worsening based upon SCr trend (SCr 0.67 on 02/17, now up to 1.0 today). U.O. not being recorded * Vancomycin trough elevated today - another indicator that renal fxn may be worsening * BP's also trending lower Plan Vancomycin * Trough level of 23.4 mcg/mL is supratherapeutic, prior doses hung on time, level drawn at appropriate time * Change to 1000 mg IV every 20 hours, begin ~22 hrs after last dose due to supratherapeutic level * Goal trough level for organism w/ ABEL 2 : 15 to 20 mcg/mL * Trough level ordered for: 02/24/17 @ 0800 Pharmacy will continue to follow and will adjust dose/frequency as necessary. Thank you.
[2017-02-22 16:00] VITALS: O2SAT 94
--- NOTE | 2017-02-22 17:54 | Progress Note ---
Medicine Progress Note Date & Time of Visit: Feb 22, 2017 at 17:38. Subjective Pt was seen and examined Lying in bed with no distress Pt said that she feels ok Continue to have some tenderness around the left side of her rib cage Denies any chest pain, palpitation, dizziness and SOB Objective Last 8 Hrs Date Time Temp Pulse Resp B/P (MAP) Pulse Ox O2 Delivery O2 Flow Rate FiO2 02/22/17 15:15 36.6 104 18 58/43 (48) 94 Physical Exam: General- No acute distress Head- atraumatic Eyes- PERRL, EOMI ENT- oropharynx clear Neck- supple, no JVD Lungs- clear to auscultation Heart- regular rhythm Abdomen- +tender, +ascites Extremities- no calf tenderness Neuro- alert, oriented x 3; PERRL, EOMI Skin- warm & dry Laboratory Results: Last 24 Hours Test 02/22/17 13:42 White Blood Count 12.17 K/uL Red Blood Count 2.70 M/uL Hemoglobin 9.4 g/dL Hematocrit 28.4 % Mean Corpuscular Volume 105.2 fL Mean Corpuscular Hemoglobin 34.8 pg Mean Corpuscular Hemoglobin Concent 33.1 g/dl RDW Standard Deviation 56.5 fL RDW Coefficient of Variation 14.7 % Platelet Count 260 K/uL Mean Platelet Volume 10.3 fL Sodium Level 138 mmol/L Potassium Level 4.4 mmol/L Chloride Level 107 mmol/L Carbon Dioxide Level 23 mmol/L Anion Gap 8.0 mmol/L Blood Urea Nitrogen 11 mg/dl Creatinine 1.00 mg/dl Est Creatinine Clear Calc Drug Dose 51.7 ml/min Estimated GFR () 70.9 Estimated GFR (Non- 61.2 BUN/Creatinine Ratio 11.1 Random Glucose 97 mg/dl Calcium Level 8.0 mg/dl Vancomycin Level Trough 23.4 mcg/ml Assessment & Plan CHRONIC LIVER DISEASE /ALCOHOLIC CIRRHOSIS /HX OF HEP C presented with worsening of Ascites /abdominal pain /SOB S/p paracentesis x3: 5 L of ascitic fluid on 02/14/17 and removal of 3.5 L of ascitic fluid on 08/30 Repeat paracentesis done today where 3.8 L ascitic fluid removed Albumin given pre and post paracentesis Cont Diuresis Lasix 40mg daily, Spironolactone 100mg daily, low Na diet. 1500 ml Fluid restriction Ascites fluid on 02/14 positive for staph aureus will restart IV vanco Case discussed with IV, recommended to continue Vanco will d/c cipro Will discharge on doxy bid for 21 days repeat ascitic fluid cx preliminary report showed no growth so far Case discussed with GI today seen pt had 3 paracentesis done in the last 9 days GI recommended to increase the lasix to 40 mg BID will closely monitor BMP for acute kidney injury Follow up with GI CT abdomen /pelvis 1. Marked heterogeneity of the liver with areas of capsular attraction, parenchymal distortion, atrophy and marked fatty infiltration are again seen with progressive atrophy from prior study. Additionally, there is large volume of intra-abdominal and intrapelvic ascites. 2. Multiple loops of small bowel demonstrate wall thickening with wall thickening also seen within the distribution of the splenic flexure and transverse colon suggesting sequela of hypoproteinemia. Enteritis/colitis could cause a similar appearance. Correlate with clinical history and laboratory values. GRAM POSITIVE BACTEREMIA coag negative staph in 05/17 bottle in sample 02/13/17 possible contamination repeat blood cultures negative Was on IV vanco Afebrile UTI : urine culture -Gram negative bacilli-E coli /nava sensitive Was on Rocephin completed 3 days course LONG HX OF ETOH ABUSE : drinks Vodka -has long hx of heavy drinking cont on DT /ETOH withdrawal protocol no sign of withdrawal -stable to tx to medical floor Strict ETOH cessation advised. case management eval & referral to ETOH cessation program vs inpt rehab. - social service consulted Pt wants to go home counseling on alcohol cessation Tobacco abuse Counseling on smoking cessation FULL CODE DVT PROPHYLAXIS SC Lovenox DISPOSITION pt declined to go to SNF -even PT/OT eval reports high risk for fall with functional decline wants to return home Refused to go to Alcohol rehab Refuse to go to rehab for PT Will discharge home with home health Consultants: ID Gastro Current Inpatient Medications: Current Inpatient Medications Medications (Trade) Dose Ordered Sig/Shelby Route Start Time Stop Time Status Last Admin Dose Admin Enoxaparin Sodium (Lovenox Inj) 40 mg Q24H SC 02/14/17 09:00 03/16/17 08:59 02/22/17 08:54 40 MG Acetaminophen (Tylenol Tab) 325 mg Q6H PRN PO 02/13/17 20:30 03/15/17 20:29 Oxycodone HCl (Roxicodone Immediate Rel Tab) 5 mg Q4H PRN PO 02/13/17 20:30 02/27/17 20:29 02/22/17 14:23 5 MG Ondansetron HCl (Zofran Inj) 4 mg Q6H PRN IV 02/13/17 20:30 03/15/17 20:29 02/16/17 19:41 4 MG Gabapentin (Neurontin Cap) 300 mg TID PO 02/13/17 21:00 03/15/17 20:59 02/22/17 14:23 300 MG Thiamine HCl (Vitamin B-1 Tab) 100 mg QAM PO 02/14/17 09:00 03/16/17 08:59 02/22/17 08:52 100 MG Multivitamins (Flintstones Complete Tab) 1 tab QAM PO 02/14/17 09:00 03/16/17 08:59 02/22/17 08:53 1 TAB Folic Acid (Folvite Tab) 1 mg QAM PO 02/14/17 09:00 03/16/17 08:59 02/22/17 08:53 1 MG Hydromorphone HCl (Dilaudid Inj) 0.5 mg Q4H PRN IV 02/13/17 20:45 02/27/17 20:44 Ipratropium [place] (Atrovent 0.02% 0.5MG/2.5ML Neb) 0.5 mg Q4H PRN INH 02/13/17 20:45 03/15/17 20:44 Levalbuterol (Xopenex 1.25MG/ 0.5ML Neb) 1.25 mg Q4H PRN INH 02/13/17 20:45 03/15/17 20:44 Lorazepam (Ativan Inj) PRN Dosing -Active Protocol Q1H PRN IV 02/14/17 08:30 03/16/17 08:29 Furosemide (Lasix Tab) 40 mg QAM PO 02/15/17 09:00 03/17/17 08:59 02/22/17 08:53 40 MG Spironolactone (Aldactone Tab) 100 mg QAM PO 02/15/17 09:00 03/17/17 08:59 02/22/17 08:53 100 MG Potassium Chloride (Klor-Con Tab) 20 meq DAILY PO 02/15/17 09:00 03/17/17 08:59 02/22/17 08:53 20 MEQ Nicotine (Nicoderm Cq 21MG Patch) 1 patch QAM EXT 02/14/17 19:30 03/16/17 19:29 02/22/17 08:54 1 PATCH Miscellaneous (Remove Nicoderm Patch) 1 ea QPM N/A 02/14/17 23:00 03/16/17 22:59 02/21/17 20:18 1 EA Levothyroxine Sodium (Synthroid Tab) 25 mcg DAILYBB PO 02/15/17 06:00 03/17/17 05:59 02/22/17 05:55 25 MCG Vancomycin HCl (Consult) 1 ea UD PRN N/A 02/20/17 13:30 03/22/17 13:29 Vancomycin HCl 1000 mg/Sodium Chloride 270 ml @ 125 mls/hr Q20H IV 02/23/17 12:00 03/03/17 05:59
[2017-02-22] MEDS ORDERED: DOXY-300 PO (17:56)
[2017-02-22] MEDS ORDERED: LSX40 PO (17:56)
[2017-02-22] MEDS ORDERED: TRAM-10 PO (18:56)
[2017-02-23] MEDS ORDERED: VANCOMYCIN INJ 1,000 MG in SODIUM CHLORIDE 0.9% 250ML 250 ML IV SCH (12:00)
[2017-02-24] MEDS ORDERED: VANCOMYCIN TROUGH ONE (07:30)
--- NOTE | 2017-02-24 07:41 | Discharge Summary ---
Discharge Summary Date of Service Feb 24, 2017. Discharge Summary Admission Date: Feb 13, 2017 at 20:13 Discharge Date: Feb 22, 2017 Discharge Disposition: Home with services Principal Diagnosis: ALCOHOLIC CIRRHOSIS /RECURRENT ASCITES Secondary Diagnoses/Problems: CHRONIC LIVER DISEASE ALCOHOLIC CIRRHOSIS HX OF HEP C GRAM POSITIVE BACTEREMIA Tobacco abuse UTI Procedures: Paracentesisx3 ABD/PELVIS IV CONTRAST ONLY HISTORY: 61 years-old Female abd pain, distension acute generalized abdominal pain with distention. COMPARISON: CT abdomen and pelvis 10/25/2016, MR liver 10/26/2016 TECHNIQUE: Multiple axial CT images of the abdomen and pelvis were obtained following the intravenous administration of 160 mL Optiray 320. No oral contrast was used. A dose lowering technique was used consistent with the principals of AMADOU. FINDINGS: Linear subsegmental atelectasis or scarring involves seen for segment lingula. No pneumoperitoneum identified. Imaged inferior cardiac chambers are unremarkable with coronary arterial calcifications. Marked heterogeneity of the liver is again seen with areas of capsular retraction, parenchymal distortion and marked fatty infiltration. Mild marginal nodularity is also seen. There is progressive atrophy of the liver compared to prior study 10/25/2016. Large volume intra-abdominal and intrapelvic ascites is noted. The spleen, pancreas, gallbladder and adrenal glands are within normal limits. Kidneys, ureters and urinary bladder are unremarkable. Uterus and adnexa are within normal limits. There is extensive atherosclerosis of the abdominal aorta without aneurysm. No bulky retroperitoneal adenopathy. There is mild wall thickening the distal esophagus, nonspecific. Wall thickening involving several loops of small bowel are seen without dilation. Additionally, there is mild wall thickening noted involving the transverse colon and splenic flexure. Diffuse body wall edema noted. No suspicious lytic or blastic bony lesions. IMPRESSION: 1. Marked heterogeneity of the liver with areas of capsular attraction, parenchymal distortion, atrophy and marked fatty infiltration are again seen with progressive atrophy from prior study. Additionally, there is large volume of intra-abdominal and intrapelvic ascites. 2. Multiple loops of small bowel demonstrate wall thickening with wall thickening also seen within the distribution of the splenic flexure and transverse colon suggesting sequela of hypoproteinemia. Enteritis/colitis could cause a similar appearance. Correlate with clinical history and laboratory values. The above report was generated using voice recognition software. It may contain grammatical, syntax or spelling errors. Electronically signed by: Gary Rodriguez M.D. 02/13/2017 6:23 PM Dictated Date/Time: 02/13/2017 6:16 PM Consultations: ID Gastro Medication Reconciliation New Medications: Doxycycline (Monohydrate) (Doxycycline) 100 Mg Cap 1 CAP PO BID for 21 Days Tramadol (Ultram) 50 Mg Tab 50 MG PO Q8H PRN for Pain for 5 Days, #15 TAB Folic Acid (Folic Acid) 1 Mg Tab 1 MG PO QAM for 30 Days, #30 TAB 2 Refills Furosemide (Furosemide) 40 Mg Tab 40 MG PO BID for 30 Days, #60 TAB 2 Refills Levothyroxine Sodium (Synthroid) 25 Mcg Tab 25 MCG PO DAILYBB for 30 Days, #30 TAB 2 Refills Potassium Chloride (Klor-Con M20) 20 Meq Tabcr 20 MEQ PO DAILY for 30 Days, #30 TABS 2 Refills Spironolactone (Spironolactone) 100 Mg Tab 100 MG PO QAM for 30 Days, #30 TAB 2 Refills Thiamine HCl (Vitamin B-1) 100 Mg Tab 100 MG PO QAM for 30 Days, #30 TAB 2 Refills Continued Medications: Albuterol Hfa (Ventolin Hfa) 200 Puffs/42364 Mcg Aers 2 PUFFS INH Q4 PRN for SOB/Wheezing Gabapentin (Neurontin) 300 Mg Cap 300 MG PO TID Hyoscyamine Sulfate (Levsin) 0.125 Mg Tab 0.125 MG PO QID BEFORE MEALS AND AT BEDTIME. Admission Information HPI (per Admitting provider): CHIEF COMPLAINT: Abdominal pain. HISTORY OF PRESENT ILLNESS: History obtained from patient and records. Medical history is significant for cirrhosis, chronic hepatitis C, ongoing alcohol abuse, COPD as per records, ongoing tobacco abuse, hx seizures, mood disorder. Recent confinement last October 2016 for hypotension, abdominal pain. Hypotension, deemed to be chronic attributed to chronic liver disease. CT of the abdomen and pelvis at that time showed small amount of ascites. PX seen by GI. Patient discharged home. Px unable to followup with PCP and or GI services outpatient. Increasing abdominal distention, worsening achy abdominal pain of late. No chest pain, admits to some shortness of breath as she is unable to take a deep breath. Patient denies diarrhea. No unusual leg swelling. No fever, no chills. Last ETOH drink was 2 days ago. No previous intubations for EtOH withdrawal as per patient. Patient brought to the Emergency Room. Physical Exam (per Admitting): PHYSICAL EXAMINATION: VITAL SIGNS: Blood pressure was noted to be 91/68, later 77/38, pulse rate 107, RR 20, temperature 37.1, sats 98% on room air. GENERAL: Noted to be uncomfortable. No respiratory distress. SKIN: Normal color, dry. HEENT: [place] palpebral conjunctivae. Dry mucosa. NECK: Short neck, midline trachea, nontender CHEST: Clear to auscultation. No anterior chest wall tenderness. ABDOMEN: Marked distention, fluid wave, tender to light palpation. EXTREMITIES: No LE edema. No tenderness. no gross deformities in lower extremity. NEUROLOGIC: No gross focality, coherent. Hospital Course CHRONIC LIVER DISEASE /ALCOHOLIC CIRRHOSIS /HX OF HEP C presented with worsening of Ascites /abdominal pain /SOB S/p paracentesis x3: 5 L of ascitic fluid on 02/14/17 and removal of 3.5 L of ascitic fluid on 08/30 Repeat paracentesis done today where 3.8 L ascitic fluid removed Albumin given pre and post paracentesis Cont Diuresis Lasix 40mg daily, Spironolactone 100mg daily, low Na diet. 1500 ml Fluid restriction Ascites fluid on 02/14 positive for staph aureus will restart IV vanco Case discussed with IV, recommended to continue Vanco will d/c cipro Will discharge on doxy bid for 21 days repeat ascitic fluid cx preliminary report showed no growth so far Case discussed with GI today seen pt had 3 paracentesis done in the last 9 days GI recommended to increase the lasix to 40 mg BID will closely monitor BMP for acute kidney injury Follow up with GI CT abdomen /pelvis 1. Marked heterogeneity of the liver with areas of capsular attraction, parenchymal distortion, atrophy and marked fatty infiltration are again seen with progressive atrophy from prior study. Additionally, there is large volume of intra-abdominal and intrapelvic ascites. 2. Multiple loops of small bowel demonstrate wall thickening with wall thickening also seen within the distribution of the splenic flexure and transverse colon suggesting sequela of hypoproteinemia. Enteritis/colitis could cause a similar appearance. Correlate with clinical history and laboratory values. GRAM POSITIVE BACTEREMIA coag negative staph in 1/2 bottle in sample 02/13/17 possible contamination repeat blood cultures negative Was on IV vanco Afebrile UTI : urine culture -Gram negative bacilli-E coli /nava sensitive Was on Rocephin completed 3 days course LONG HX OF ETOH ABUSE : drinks Vodka -has long hx of heavy drinking cont on DT /ETOH withdrawal protocol no sign of withdrawal -stable to tx to medical floor Strict ETOH cessation advised. case management eval & referral to ETOH cessation program vs inpt rehab. - social service consulted Pt wants to go home counseling on alcohol cessation Tobacco abuse Counseling on smoking cessation FULL CODE DVT PROPHYLAXIS SC Lovenox DISPOSITION pt declined to go to SNF -even PT/OT eval reports high risk for fall with functional decline wants to return home Refused to go to Alcohol rehab Refuse to go to rehab for PT Will discharge home with home health Total time spent on discharge = 35 minutes This includes examination of the patient, discharge planning, medication reconciliation, and communication with other providers. Discharge Instructions Discharge Instructions Date of Service Feb 18, 2017. Admission Reason for Admission: Decompensated Hepatic Cirrhosis, Hypotension Discharge Discharge Diagnosis / Problem: ALCOHOLIC CIRRHOSIS /RECURRENT ASCITIES Discharge Goals Goal(s): Decrease discomfort, Improve disease control, Diagnostic testing, Therapeutic intervention Activity Recommendations Activity Limitations: resume your previous activity . Instructions / Follow-Up Instructions / Follow-Up HOSPITAL FOLLOW UP : 02/21/2017 11:20 AM Jeremy Maki MD Internal Medicine [facility] GASTROENTEROLOGY FOLLOW UP IN 2-3 WEEKS, OFFICE WILL CALL WITH APPOINTMENT NEED TO QUIT /HAVE COMPLETE ABSTINENCE FROM ALCOHOL -YOU ALREADY HAVE ADVANCED LIVER DISEASE DUE TO ALCOHOL CAUSING RECURRENT ACCUMULATION OF FLUID IN YOUR ABDOMEN FURTHER DRINKING WILL CALL FASTER WORSENING OF YOUR LIVER , CAUSING VERY FAST ACCUMULATION OF FLUID , INFECTION AND Current Hospital Diet Patient's current hospital diet: Low Sodium Diet (2gm Na) Discharge Diet Recommended Diet: Low Sodium Diet (2gm Na) Pending Studies Studies pending at discharge: no Medical Emergencies . Who to Call and When: Medical Emergencies: If at any time you feel your situation is an emergency, please call 911 immediately. . Non-Emergent Contact Non-Emergency issues call your: Primary Care Provider . . "Provider Documentation" section prepared by Judith Gupta. . VTE Core Measure Inpt VTE Proph given/why not?: Trisha Hernandez, HANNY's Addendum: Ariel Wilkinson M.D. on 02/22/17 @ 18:02 Discharge Inst - Addendum Addendum Notes: Discharge home with home health services Complete the course of Antibiotic with doxycycline Follow up with your physician Dr. Maki ( Dr. Maki office will contact you for the appointment) Fall precaution Continue physical therapy Lasix increased to 40mg twice a day Check BMP on Tuesday to monitor kidney function and electrolytes On 1500 ml fluid restriction daily Follow a low salt diet Addendum Provider: Addendum Notes were documented by provider Ariel Wilkinson. Addendum: Ariel Wilkinson M.D. on 02/22/17 @ 18:28 Discharge Inst - Addendum Addendum Notes: Lab order given for BMP Addendum Provider: Addendum Notes were documented by provider Ariel Wilkinson. Additional Copies To Jeremy Maki M.D.
== END 2017-02-22 19:10 | disposition home or self-care (01) | DRG 433 ==
LOC: EDBD 14:36 → C.EDB 14:37 → C.2T 20:13 → ENRESERV 20:36 → C.MS4W 02-17 17:48
PROVIDERS: ADMIT Family Medicine; ATTEND Internal Medicine
PROC: 0W9G3ZX Drainage of Peritoneal Cavity, Percutaneous Approach, Diagnostic (ICD-10-PCS; principal; 2017-02-14)
PROC: 0W9G3ZZ Drainage of Peritoneal Cavity, Percutaneous Approach (ICD-10-PCS; 2017-02-16)
PROC: 0W9G3ZZ Drainage of Peritoneal Cavity, Percutaneous Approach (ICD-10-PCS; 2017-02-21)
DX: K70.31 Alcoholic cirrhosis of liver with ascites (principal); N39.0 Urinary tract infection, site not specified; R78.81 Bacteremia; F17.210 Nicotine dependence, cigarettes, uncomplicated; B18.2 Chronic viral hepatitis C; J44.9 Chronic obstructive pulmonary disease, unspecified; G40.909 Epilepsy, unspecified, not intractable, without status epilepticus; F39 Unspecified mood [affective] disorder; K52.9 Noninfective gastroenteritis and colitis, unspecified; I95.89 Other hypotension; Z82.0 Family history of epilepsy and other diseases of the nervous system; B96.20 Unspecified Escherichia coli [E. coli] as the cause of diseases classified elsewhere; B95.7 Other staphylococcus as the cause of diseases classified elsewhere; B95.62 Methicillin resistant Staphylococcus aureus infection as the cause of diseases classified elsewhere

== ENCOUNTER 2017-03-03 12:50 | Inpatient (IN) | payer OTHER ==
[~2017-03-03] VITALS: Ht 162.6 cm; Wt 54.0 kg
[~2017-03-03 12:50] MED LIST changes: +DOXY-300 PO; +FLV1 PO; +LSX40 PO; +MCRK20 PO; +SPRN100 PO; +SYN25 PO; +THM100 PO
[2017-03-03] MEDS ORDERED: SODIUM CHLORIDE 0.9% 250ML 250 ML IV STA (13:11)
[2017-03-03] MEDS ORDERED: SODIUM CHLORIDE 0.9% 1000ML 1,000 ML IV STA (13:11)
[2017-03-03] MEDS ORDERED: ONDANSETRON INJ 2 MG/ML 2 ML VIAL IV STA (13:15)
[2017-03-03] MEDS ORDERED: ALBUT/IPRATROP 3MG/0.5MG NEB 3 ML VIAL INH STA (13:17)
--- NOTE | 2017-03-03 13:21 | EMERGENCY ROOM VISIT NOTE ---
History Report prepared by Merrill: Jose Olguin Under the Supervision of: Dr. Naila Rico M.D. First contact with patient: 12:53 History of Present Illness The patient is a 61 year old female with a history of COPD who presents to the Emergency Room via EMS with worsening respiratory issues that started prior to arrival today. Per the patient's home health nurse, the patient was brought here because the patient had a heart rate in the 40s and an oxygen saturation in the 60s. EMS reports that the patient had a heart rate in the 90s and an oxygen saturation of 98% on room air on arrival. The patient says that she has been getting nauseous, and has been getting dizzy when getting up to go to the bathroom. She adds that she has been getting short of breath when coming back from the bathroom. She says that she has been getting some right-sided flank pain as well around her ribs. The patient says that she feels pretty well currently. She denies any fevers, chest pain, or ankle swelling. She says that she has been smoking cigarettes ever since she was a teenager, and recently she has been smoking 2 cigarettes per day. The patient states that she uses an inhaler at home, but is not on any oxygen at home. She notes no history of blood clots. Source of History: patient, nursing staff, other (home health nurse) Onset: Prior to arrival today Position: other (global - respiatory issues) Symptom Intensity: home health nurse report O2 saturation in 60s Timing: worsening Associated Symptoms: + SOB, No fevers, No chest pain Note: Associated symptoms: Blood pressure in 90s per home health nurse. Dizzy when getting up to go to bathroom. Right-sided flank pain. Denies ankle swelling. Review of Systems See HPI for pertinent positives & negatives. A total of 10 systems reviewed and were otherwise negative. Past Medical & Surgical Medical Problems: (1) Abdominal pain (2) Alcohol abuse (3) Anemia (4) COPD, moderate (5) Decompensated hepatic cirrhosis (6) Depression (7) Fatty liver (8) H/O needle biopsy (9) Hepatitis B (10) Hepatitis C, chronic (11) History of seizures (12) Hypotension (13) Ileus (14) Peritonitis (15) Tuberculosis Surgical Problems: (1) H/O exploratory laparotomy (2) History of appendectomy (3) History of tubal ligation Family History FH: dementia FATHER Social History Smoking Status: Current Every Day Smoker Alcohol Use: heavy Drug Use: none Marital Status: in relationship Housing Status: lives with family Occupation Status: unemployed Current/Historical Medications Scheduled Doxycycline (Monohydrate) (Doxycycline), 1 CAP PO BID Folic Acid (Folic Acid), 1 MG PO QAM Furosemide (Furosemide), 40 MG PO BID Gabapentin (Neurontin), 300 MG PO TID Hyoscyamine Sulfate (Levsin), 0.125 MG PO QID Levothyroxine Sodium (Synthroid), 25 MCG PO DAILYBB Potassium Chloride (Klor-Con M20), 20 MEQ PO DAILY Spironolactone (Spironolactone), 100 MG PO QAM Thiamine HCl (Vitamin B-1), 100 MG PO QAM Scheduled PRN Albuterol Hfa (Ventolin Hfa), 2 PUFFS INH Q4 PRN for SOB/Wheezing Allergies Coded Allergies: No Known Allergies (Unverified , 02/05/16) Physical Exam Vital Signs Date Time Temp Pulse Resp B/P (MAP) Pulse Ox O2 Delivery O2 Flow Rate FiO2 03/03/17 15:29 93 20 104/66 100 Room Air 03/03/17 13:51 91 20 99/67 100 Room Air 03/03/17 13:06 91 03/03/17 13:03 100 Room Air 03/03/17 12:57 96 Room Air 03/03/17 12:57 36.5 91 20 86/49 96 Room Air Physical Exam Vital signs reviewed. General: Chronically ill-appearing 61 year old female, in no significant distress. Edentulous. HEENT: No scleral icterus, PERRLA, neck supple. Atraumatic. Cardiovascular: Regular rate and rhythm, no extra sounds. Pulmonary:Faintly scattered wheezes bilaterally. Abdomen: Soft, nontender, distended, positive fluid wave, positive bowel sounds. Musculoskeletal: Atraumatic, no peripheral edema. Neurologic: Patient awake alert and oriented x 3, full strength in all 4 extremities. Cranial nerves 2 through 12 grossly intact. Patient is unsteady on her feet. Proprioception is abnormal (attempted to sit on my leg next to toilet when helping to bathroom). Skin: Warm, dry, no rash Medical Decision & Procedures ER Provider Diagnostic Interpretation: X-ray results as stated below per interpretation by me and the radiologist: CHEST ONE VIEW PORTABLE HISTORY: Short of breath. Cough. COMPARISON: Chest 02/13/2017. FINDINGS: No pneumothorax. No pleural effusions. The heart is normal in size. No evidence for pulmonary edema. Nodular density the right lung base is likely due to overlapping breast shadow. Stable linear densities the left lung base suggesting scarring or subsegmental atelectasis. No new focal lung consolidations to suggest pneumonia. Mild emphysema. IMPRESSION: No new focal lung consolidations to suggest pneumonia. Emphysema. Electronically signed by: Omar Gutierrez M.D. 03/03/2017 2:14 PM Dictated Date/Time: 03/03/2017 2:09 PM Laboratory Results 03/03/17 14:34 Red Blood Count 2.84, Mean Corpuscular Volume 98.9, Mean Corpuscular Hemoglobin 33.8, Mean Corpuscular Hemoglobin Concent 34.2, Mean Platelet Volume 10.1, Neutrophils (%) (Auto) 59.6, Lymphocytes (%) (Auto) 23.7, Monocytes (%) (Auto) 11.8, Eosinophils (%) (Auto) 4.0, Basophils (%) (Auto) 0.7, Neutrophils # (Auto ) 5.99, Lymphocytes # (Auto) 2.38, Monocytes # (Auto) 1.19, Eosinophils # (Auto ) 0.40, Basophils # (Auto) 0.07 03/03/17 14:34 Test 03/03/17 14:34 03/03/17 14:41 03/03/17 16:15 03/03/17 16:34 White Blood Count 10.05 K/uL (4.8-10.8) Red Blood Count 2.84 M/uL (4.2-5.4) Hemoglobin 9.6 g/dL (12.0-16.0) Hematocrit 28.1 % (37-47) Mean Corpuscular Volume 98.9 fL (80-100) Mean Corpuscular Hemoglobin 33.8 pg (25-34) Mean Corpuscular Hemoglobin Concent 34.2 g/dl (32-36) Platelet Count 387 K/uL (130-400) Mean Platelet Volume 10.1 fL (7.4-10.4) Neutrophils (%) (Auto) 59.6 % Lymphocytes (%) (Auto) 23.7 % Monocytes (%) (Auto) 11.8 % Eosinophils (%) (Auto) 4.0 % Basophils (%) (Auto) 0.7 % Neutrophils # (Auto) 5.99 K/uL (1.4-6.5) Lymphocytes # (Auto) 2.38 K/uL (1.2-3.4) Monocytes # (Auto) 1.19 K/uL (0.11-0.59) Eosinophils # (Auto) 0.40 K/uL (0-0.5) Basophils # (Auto) 0.07 K/uL (0-0.2) RDW Standard Deviation 49.4 fL (36.4-46.3) RDW Coefficient of Variation 13.8 % (11.5-14.5) Immature Granulocyte % (Auto) 0.2 % Immature Granulocyte # (Auto) 0.02 K/uL (0.00-0.02) Anion Gap 8.0 mmol/L (3-11) Est Creatinine Clear Calc Drug Dose 33.1 ml/min Estimated GFR () 41.4 Estimated GFR (Non- 35.7 BUN/Creatinine Ratio 8.2 (10-20) Calcium Level 8.4 mg/dl (8.5-10.1) Magnesium Level 1.8 mg/dl (1.8-2.4) Total Bilirubin 0.8 mg/dl (0.2-1) Direct Bilirubin 0.5 mg/dl (0-0.2) Aspartate Amino Transf (AST/SGOT) 54 U/L (15-37) Alanine Aminotransferase (ALT/SGPT) 20 U/L (12-78) Alkaline Phosphatase 82 U/L (45-117) Total Creatine Kinase 22 U/L (26-192) Creatine Kinase MB 0.9 ng/ml (0.5-3.6) Creatine Kinase MB Ratio 4.1 (0-3.0) Pro-B-Type Natriuretic Peptide 871 pg/ml (0-900) Total Protein 6.8 gm/dl (6.4-8.2) Albumin 2.5 gm/dl (3.4-5.0) Bedside Lactic Acid Venous 0.97 mmol/L (0.90-1.70) Laboratory results per my review. Medications Administered Medications (Trade) Dose Ordered Sig/Shelby Route Start Time Stop Time Status Last Admin Dose Admin Sodium Chloride 1,000 ml @ 125 mls/hr Q8H STAT IV 03/03/17 13:11 03/03/17 21:10 03/03/17 13:47 125 MLS/HR Sodium Chloride 250 ml @ 999 mls/hr Q16M STAT IV 03/03/17 13:11 03/03/17 13:26 DC 03/03/17 13:46 999 MLS/HR Ondansetron HCl (Zofran Inj) 4 mg NOW STAT IV 03/03/17 13:15 03/03/17 13:16 DC 03/03/17 13:46 4 MG Albuterol/ Ipratropium (Duoneb) 3 ml NOW STAT INH 03/03/17 13:17 03/03/17 13:18 DC 03/03/17 13:46 3 ML ECG Indication: SOB/dyspnea Rate (beats per minute): 88 Rhythm: normal sinus Findings: no acute ischemic change, no ectopy, other (low voltage) ED Course 1309: Past medical records reviewed. The patient was evaluated in room C9. A complete history and physical examination was performed. 1311: Ordered NSS 250 ml @ 999 mls/hr IV, NSS 1000 ml @ 125 mls/hr IV. 1315: Ordered Zofran Inj 4 mg IV. 1317: Ordered Duoneb 3 ml INH. 1615: I reevaluated the patient and got her up to go to the restroom. Pending lactate and ammonia currently. The patient verbally expressed understanding and agreement with the treatment plan. The patient will be evaluated for further treatment. 1630: I discussed the patient with Jocelyn Barbour - she will evaluate the patient for further treatment. Medical Decision Differential diagnosis: Etiologies such as infections, reactive airway disease, pneumonia, pneumothorax , COPD, CHF, cardiac ischemia, pulmonary embolism, musculoskeletal, gastrointestinal, as well as others were entertained. This pt was evaluated and appeared to be in no distress. IV access was obtained and lab work was drawn. Patient was hydrated with normal saline solution. Blood pressure is noted to be low. Chest x-ray is consistent with emphysema, no evidence of focal lung consolidation or failure. Patient is unsteady on her feet on exam. Patient's lactic acid is normal, ammonia level is elevated. Blood pressure has improved with hydration. Patient's creatinine is noted to be mildly elevated above baseline. I suspect the patient's has some intravascular volume depletion with significant ascites causing her hypotension. The elevated ammonia level is likely contributing to her unsteady gait and mild confusion. She will be evaluated by the hospitalist service for admission and further management. She is aware of plan and agrees. Medication Reconcilliation Current Medication List: was personally reviewed by me Blood Pressure Screening Patient's blood pressure: Low blood pressure Referred to hospitalist. Consults Time Called: 1625 Consulting Physician: Jocelyn Barbour Returned Call: 1630 I discussed the patient with Jocelyn Barbour - she will evaluate the patient for further treatment. Impression Primary Impression: Hypotension Additional Impressions: BRADLEY (acute kidney injury) Hyperammonemia Scribe Attestation The scribe's documentation has been prepared under my direction and personally reviewed by me in its entirety. I confirm that the note above accurately reflects all work, treatment, procedures, and medical decision making performed by me. Departure Information Dispostion Being Evaluated By Hospitalist Referrals Jeremy Maki M.D. (PCP) Problem Qualifiers
--- NOTE | 2017-03-03 14:15 | DIAGNOSTIC IMAGING REPORT ---
CHEST ONE VIEW PORTABLE HISTORY: Short of breath. Cough. COMPARISON: Chest 02/13/2017. FINDINGS: No pneumothorax. No pleural effusions. The heart is normal in size. No evidence for pulmonary edema. Nodular density the right lung base is likely due to overlapping breast shadow. Stable linear densities the left lung base suggesting scarring or subsegmental atelectasis. No new focal lung consolidations to suggest pneumonia. Mild emphysema. IMPRESSION: No new focal lung consolidations to suggest pneumonia. Emphysema. Electronically signed by: Omar Gutierrez M.D. 03/03/2017 2:14 PM Dictated Date/Time: 03/03/2017 2:09 PM
[2017-03-03 14:48] LABS: BASO % 0.7 %; BASO ABS # 0.07 K/uL (0-0.2); COMPLETE YES; HEMATOCRIT 28.1 % (37-47); IG% 0.2 %; LYMPH % 23.7 %; LYMPH ABS # 2.38 K/uL (1.2-3.4); MEAN CELL VOLUME 98.9 fL (80-100); MEAN CORPUSCULAR HEMOGLOBIN 33.8 pg (25-34); MEAN CORPUSCULAR HGB CONC 34.2 g/dl (32-36); MEAN PLATELET VOLUME 10.1 fL (7.4-10.4); MONO % 11.8 %; NEUT % 59.6 %; PLATELET COUNT 387 K/uL (130-400); RED BLOOD COUNT 2.84 M/uL (4.2-5.4); WHITE BLOOD COUNT 10.05 K/uL (4.8-10.8)
[2017-03-03 15:12] LABS: BUN/CREATININE RATIO 8.2 (10-20); CALCIUM 8.4 mg/dl (8.5-10.1); CREATININE 1.56 mg/dl (0.60-1.20); MAGNESIUM 1.8 mg/dl (1.8-2.4); POTASSIUM 4.7 mmol/L (3.5-5.1)
[2017-03-03 15:19] LABS: CKMB/CK RATIO 4.1 (0-3.0)
[2017-03-03 16:44] LABS: URINE APPEARANCE CLOUDY (CLEAR); URINE BILIRUBIN NEG (NEG); URINE COLOR YELLOW; URINE EPITHELIAL CELL AUTO >30 /lpf (0-5); URINE NITRITE NEG (NEG); URINE PH 7.5 (4.5-7.5); URINE SPECIFIC GRAVITY 1.009 (1.000-1.030); UROBILINOGEN NEG (NEG); ZZUR CULT IF INDIC CLEAN CATCH NO
[2017-03-03 16:45] VITALS: O2SAT 96; Ht 162.6 cm; Wt 54.0 kg
[2017-03-03 16:46] LABS: MANUAL MICROSCOPIC REQUIRED? NO; REVIEW REQ? NO
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
[2017-03-03 18:27] VITALS: BP 93/64; PULSE 93; TEMP 36.5; O2SAT 96
[2017-03-03] MEDS ORDERED: ALBUTEROL HFA 8 GM INHALER INH PRN (18:30)
[2017-03-03] MEDS ORDERED: ALBUT/IPRATROP 3MG/0.5MG NEB 3 ML VIAL INH PRN (18:30)
[2017-03-03] MEDS ORDERED: SODIUM CHLORIDE 0.9% 1000ML 1,000 ML IV SCH (18:30)
[2017-03-03 18:51] LABS: INR 1.2 (0.9-1.1); PROTHROMBIN TIME (PATIENT) 12.7 SECONDS (9.0-12.0)
--- NOTE | 2017-03-03 19:17 | DIAGNOSTIC IMAGING REPORT ---
CT OF THE HEAD WITHOUT CONTRAST CLINICAL HISTORY: Confusion. COMPARISON STUDY: Head CT February 05, 2016. CT DOSE: 537.48 mGy.cm TECHNIQUE: Helical axial images of the head were obtained without IV contrast. Automated exposure control was utilized for the study. A dose lowering technique was utilized adhering to the principles of ALARA. FINDINGS: No acute intracranial hemorrhage, midline shift or mass effect is present. Moderate atrophy is unchanged with prominence of extra-axial spaces. Ventricular system is stable. Basilar cisterns are patent. There are no extra-axial collections. There are no findings to suggest acute dural sinus thrombosis or acute territorial infarct. There is no calvarial fracture. Chronic nasal bone deformity is partially imaged. Visualized portions of the sinuses and mastoid air cells are clear. IMPRESSION: No acute intracranial findings. Electronically signed by: Kvng Hernandez M.D. 03/03/2017 7:16 PM Dictated Date/Time: 03/03/2017 7:13 PM
[2017-03-03 20:30] VITALS: O2SAT 96
[2017-03-03] MEDS ORDERED: ACETAMINOPHEN 325 MG TAB PO PRN (20:30)
[2017-03-03] MEDS ORDERED: HYDROmorphone INJ 0.5 MG/0.5 ML SYR IV PRN (20:30)
[2017-03-03] MEDS: OXYCODONE HCL IR 5 MG TAB (IMMEDIATE RELEASE) PO PRN (21:04)
[2017-03-03] MEDS: HYOSCYAMINE SULFATE 0.125 MG SL TAB PO SCH (21:13)
[2017-03-03] MEDS: LACTULOSE SYRUP 10 GM/15 ML BTL 473 ML PO SCH (21:13)
[2017-03-03] MEDS: GABAPENTIN 300 MG CAP PO SCH (21:13)
[2017-03-03] MEDS: DOXYCYCLINE HYCLATE 100 MG CAP PO SCH (21:13)
--- NOTE | 2017-03-03 21:13 | DIAGNOSTIC IMAGING REPORT ---
CT OF THE ABDOMEN AND PELVIS WITHOUT CONTRAST CLINICAL HISTORY: Abdominal/flank pain. COMPARISON STUDY: CT of the abdomen and pelvis February 13, 2017. TECHNIQUE: Axial images of the abdomen and pelvis were obtained without IV contrast. Images were reviewed in the axial, sagittal, and coronal planes. A dose lowering technique was utilized adhering to the principles of ALARA. FINDINGS: There is a large amount of abdominal and pelvic ascites. No pneumatosis, free air or portal venous gas is present. Evaluation of the abdomen and pelvis is suboptimal on this unenhanced exam. Heterogeneity of the liver with fatty infiltration and cirrhosis is noted. The size of the spleen is normal. Unenhanced images of the adrenal glands, kidneys and pancreas are normal. There is sludge versus stones within the gallbladder. No suspicious osseous lesion is present. There is extensive atherosclerotic plaque of the abdominal aorta. IMPRESSION: 1. Large amount of abdominal and pelvic ascites. 2. Cirrhosis with fatty infiltration of the liver. 3. No bowel obstruction. 4. Layering material within the gallbladder which could reflect gallstones or sludge. Electronically signed by: Kvng Hernandez M.D. 03/03/2017 9:12 PM Dictated Date/Time: 03/03/2017 9:04 PM
[2017-03-03] MEDS ORDERED: NICOTINE 21 MG/24 HR TDSY TD ONE (21:51)
[2017-03-03 23:46] VITALS: BP_SYST 78; BP_SYST 86; BP_DIAS 51; BP_DIAS 52; PULSE 86; TEMP 37.1; O2SAT 92
[2017-03-04] VITALS (9 sets, daily range): BP systolic 81–95; BP diastolic 49–62; PULSE 89–102; TEMP 36.5–37.4; O2SAT 89–100
[2017-03-04 05:56] LABS: HEMATOCRIT 27.3 % (37-47); MEAN CELL VOLUME 99.6 fL (80-100); MEAN CORPUSCULAR HEMOGLOBIN 32.8 pg (25-34); MEAN PLATELET VOLUME 9.8 fL (7.4-10.4); PLATELET COUNT 312 K/uL (130-400); RED BLOOD COUNT 2.74 M/uL (4.2-5.4)
[2017-03-04 06:05] LABS: INR 1.2 (0.9-1.1); PROTHROMBIN TIME (PATIENT) 13.3 SECONDS (9.0-12.0)
[2017-03-04 06:27] LABS: BUN/CREATININE RATIO 7.7 (10-20); CALCIUM 8.5 mg/dl (8.5-10.1); CREATININE 1.67 mg/dl (0.60-1.20); POTASSIUM 4.7 mmol/L (3.5-5.1)
[2017-03-04 06:31] LABS: ALB/GLOB RATIO 0.6 (0.9-2)
--- NOTE | 2017-03-04 08:24 | Gastrointestinal Consultation ---
Gastrointestinal Consultation Date of Consultation: Mar 04, 2017 Attending Physician: Elizabeth Consulting Physician: Nevaeh Reason for Consultation: ascites History of Present Illness Patient is a 61 year old female w/ PMH significant for of HCV (last HCV RNA in October), ETOH cirrhosis w/ continued ETOH abuse, seizures and others listed below who presented to ED w c/o abd distension and pain. She was last admitted for similar complaints last week with SBP. During course of hospitalization, 3 paracenteses performed and was discharged on Lasix 40mg daily , Spironolactone 100mg daily, low Na diet and a fluid restriction of 1500 L. Became symptomatic with weakness, lightheadness, nausea fatigue a few days ago. She tells me last ETOH intake was February 13, was drinking more than 1 bottle of vodka a day. She reports abd distension x 2 months. Has a home health nurse , who was concerned about vital signs. HR in 40's with O2 sats in 60's. 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 Pt is s/p paracentesis this morning, about 3L taken off and sent to lab. Diuretics held. BUN/FRINGE KNOTTER up since last admission. She is hypotensive, 90/51 pulse 64. Past Medical/Surgical History Medical Problems: (1) BRADLEY (acute kidney injury) Status: Acute (2) Ambulatory dysfunction Status: Acute (3) Ascites Status: Acute (4) Chest wall contusion Status: Acute (5) Chest wall pain Status: Acute (6) Diffuse abdominal pain Status: Acute (7) Elevated bilirubin Status: Acute (8) Hypomagnesemia Status: Acute (9) Hypotension Status: Acute (10) Paresthesia Status: Acute (11) Partial small bowel obstruction Status: Acute (12) Symptomatic anemia Status: Acute Past Medical History: HCV, cirrhosis, ETOH abuse, anemia, seizure disorder Past Surgical History: Bilateral tubal ligation, Ex lap Family History FH: dementia FATHER Social History Smoking Status: Current Every Day Smoker (3 cigarettes a day) Alcohol Use: heavy Drug Use: none Marital Status: in relationship Housing Status: lives with family Occupation Status: unemployed Allergies Coded Allergies: No Known Allergies (Unverified , 02/05/16) Current Medications Home Meds and Scripts Medications Dose Route/Sig Max Daily Dose Days Date Category Dose Instructions Doxycycline (Doxycycline (Monohydrate)) 100 Mg Cap 1 Cap PO BID 02/22/17 Rx Furosemide 40 Mg Tab 40 Mg PO BID 30 02/22/17 Rx Vitamin B-1 (Thiamine HCl) 100 Mg Tab 100 Mg PO QAM 30 02/18/17 Rx Folic Acid 1 Mg Tab 1 Mg PO QAM 30 02/18/17 Rx Synthroid (Levothyroxine Sodium) 25 Mcg Tab 25 Mcg PO DAILYBB 30 02/18/17 Rx Klor-Con M20 (Potassium Chloride) 20 Meq Tabcr 20 Meq PO DAILY 30 02/18/17 Rx Spironolactone 100 Mg Tab 100 Mg PO QAM 30 02/18/17 Rx Neurontin (Gabapentin) 300 Mg Cap 300 Mg PO TID 10/25/16 Reported Ventolin Hfa (Albuterol) 200 Puffs/22731 Mcg Aers 2 Puffs INH Q4 PRN 10/25/16 Reported Levsin (Hyoscyamine Sulfate) 0.125 Mg Tab 0.125 Mg PO QID 10/25/16 Reported BEFORE MEALS AND AT BEDTIME. Review of Systems Constitutional: No fever, No chills Respiratory: + shortness of breath, No cough Cardiac: No chest pain Abdomen: + pain, + nausea, No vomiting, No diarrhea, No constipation, No GI bleeding Physical Exam Date Time Temp Pulse Resp B/P (MAP) Pulse Ox O2 Delivery O2 Flow Rate FiO2 03/04/17 07:51 36.7 96 19 90/51 (64) 91 Room Air 03/04/17 04:15 Room Air 03/04/17 03:54 37.1 89 17 90/55 (67) 100 Room Air 03/04/17 00:00 Room Air 03/03/17 23:46 37.1 86 17 86/52 (63) 92 03/03/17 20:30 96 Room Air 03/03/17 18:27 36.5 93 18 93/64 (74) 96 Room Air 03/03/17 18:02 91 20 103/50 100 03/03/17 17:48 91 20 103/50 100 Room Air 03/03/17 17:16 90 03/03/17 16:46 84 18 92/51 96 Room Air 03/03/17 16:45 96 Room Air 03/03/17 15:29 93 20 104/66 100 Room Air 03/03/17 13:51 91 20 99/67 100 Room Air 03/03/17 13:06 91 03/03/17 13:03 100 Room Air 03/03/17 12:57 96 Room Air 03/03/17 12:57 36.5 91 20 86/49 96 Room Air General Appearance: + mild distress Eyes: PERRL ENT: hearing grossly normal Neck: supple Respiratory/Chest: lungs clear, normal breath sounds Cardiovascular: regular rate, rhythm Abdomen: normal bowel sounds, soft, + tenderness, + pertinent finding (ascites) Neurologic/Psych: alert, normal mood/affect, oriented x 3 Skin: normal color Laboratory Results Last 24 Hours Test 03/03/17 13:45 03/03/17 14:34 03/03/17 14:41 03/03/17 16:34 Prothrombin Time 12.7 SECONDS Prothromb Time International Ratio 1.2 White Blood Count 10.05 K/uL Red Blood Count 2.84 M/uL Hemoglobin 9.6 g/dL Hematocrit 28.1 % Mean Corpuscular Volume 98.9 fL Mean Corpuscular Hemoglobin 33.8 pg Mean Corpuscular Hemoglobin Concent 34.2 g/dl Platelet Count 387 K/uL Mean Platelet Volume 10.1 fL Neutrophils (%) (Auto) 59.6 % Lymphocytes (%) (Auto) 23.7 % Monocytes (%) (Auto) 11.8 % Eosinophils (%) (Auto) 4.0 % Basophils (%) (Auto) 0.7 % Neutrophils # (Auto) 5.99 K/uL Lymphocytes # (Auto) 2.38 K/uL Monocytes # (Auto) 1.19 K/uL Eosinophils # (Auto) 0.40 K/uL Basophils # (Auto) 0.07 K/uL RDW Standard Deviation 49.4 fL RDW Coefficient of Variation 13.8 % Immature Granulocyte % (Auto) 0.2 % Immature Granulocyte # (Auto) 0.02 K/uL Sodium Level 134 mmol/L Potassium Level 4.7 mmol/L Chloride Level 104 mmol/L Carbon Dioxide Level 22 mmol/L Anion Gap 8.0 mmol/L Blood Urea Nitrogen 13 mg/dl Creatinine 1.56 mg/dl Est Creatinine Clear Calc Drug Dose 33.1 ml/min Estimated GFR () 41.4 Estimated GFR (Non- 35.7 BUN/Creatinine Ratio 8.2 Random Glucose 80 mg/dl Calcium Level 8.4 mg/dl Magnesium Level 1.8 mg/dl Total Bilirubin 0.8 mg/dl Direct Bilirubin 0.5 mg/dl Aspartate Amino Transf (AST/SGOT) 54 U/L Alanine Aminotransferase (ALT/SGPT) 20 U/L Alkaline Phosphatase 82 U/L Total Creatine Kinase 22 U/L Creatine Kinase MB 0.9 ng/ml Creatine Kinase MB Ratio 4.1 Pro-B-Type Natriuretic Peptide 871 pg/ml Total Protein 6.8 gm/dl Albumin 2.5 gm/dl Bedside Lactic Acid Venous 0.97 mmol/L Urine Color YELLOW Urine Appearance CLOUDY Urine pH 7.5 Urine Specific [place] 1.009 Urine Protein NEG Urine Glucose (UA) NEG Urine Ketones NEG Urine Occult Blood NEG Urine Nitrite NEG Urine Bilirubin NEG Urine Urobilinogen NEG Urine Leukocyte Esterase NEG Urine WBC (Auto) 1-5 /hpf Urine RBC (Auto) 0-4 /hpf Urine Hyaline Casts (Auto) 5-10 /lpf Urine Epithelial Cells (Auto) >30 /lpf Urine Bacteria (Auto) NEG Test 03/03/17 16:41 03/04/17 05:45 Ammonia 44.4 umol/L White Blood Count 9.00 K/uL Red Blood Count 2.74 M/uL Hemoglobin 9.0 g/dL Hematocrit 27.3 % Mean Corpuscular Volume 99.6 fL Mean Corpuscular Hemoglobin 32.8 pg Mean Corpuscular Hemoglobin Concent 33.0 g/dl RDW Standard Deviation 50.4 fL RDW Coefficient of Variation 13.9 % Platelet Count 312 K/uL Mean Platelet Volume 9.8 fL Prothrombin Time 13.3 SECONDS Prothromb Time International Ratio 1.2 Sodium Level 137 mmol/L Potassium Level 4.7 mmol/L Chloride Level 106 mmol/L Carbon Dioxide Level 23 mmol/L Anion Gap 7.0 mmol/L Blood Urea Nitrogen 13 mg/dl Creatinine 1.67 mg/dl Est Creatinine Clear Calc Drug Dose 31.0 ml/min Estimated GFR () 38.1 Estimated GFR (Non- 32.9 BUN/Creatinine Ratio 7.7 Random Glucose 58 mg/dl Calcium Level 8.5 mg/dl Total Bilirubin 0.7 mg/dl Aspartate Amino Transf (AST/SGOT) 46 U/L Alanine Aminotransferase (ALT/SGPT) 17 U/L Alkaline Phosphatase 73 U/L Total Protein 6.0 gm/dl Albumin 2.3 gm/dl Globulin 3.7 gm/dl Albumin/Globulin Ratio 0.6 Impression Patient is a 61 year old female w suspected ETOH cirrhosis, admitted for increasing abd distension and pain, recently admitted and discharged last week, on abx for SBP. Began reaccumulated abd fluid, weak, dizzy, fatigued --> ED. Hypotensive, with abd distention s/p paracentesis with 3L off. BRADLEY --> will rule out HRS. Plan - Diagnostic and therapeutic (no more than 4L) paracentesis - 25G 25% albumin before and after - follow up cultures, will advise ABX as appropriate - if SBP albumin 1.5g/kg x 1 day then 1g/kg albumin on day 3 - Hold diuretics - baseline creat 0.8 - Follow up urine studies - daily CMP - - Lactulose 15G TID as tolerated - titrate to 2-3 BMs daily - ETOH abstinence - Dr. Fontenot with coverage this weekend, please call with questions or concerns. [facility] to resume care Tuesday. I have seen , examined and agree with the plan as outlined by Ms. Susannah BURRIS as above. -exam reveals soft abd -BRADLEY without overt signs of hepatorenal syndrome as urine sodium was not less than 10. -IV fluids -Strict alcohol abstinence -Correction of renal failure
[2017-03-04] MEDS: ONDANSETRON INJ 2 MG/ML 2 ML VIAL IV PRN (08:52)
--- NOTE | 2017-03-04 09:00 | Progress Note ---
Internal Med Progress Note Date of Service: Mar 04, 2017. Provider Documentation: SUBJECTIVE: Seen and examined at bedside States having abdominal pain and was nauseous this morning Got Abdominal paracentesis today Denies chest pain, SOB, dizziness No BM yet Family at bedside OBJECTIVE: Vital Signs-as noted below Physical Exam: Vitals signs as noted above General Appearance:Thin, frail, chronic ill appearing Head: normocephalic, Atraumatic Eyes: normal inspection, EOMI, PERRL Neck: supple, Trachea midline Respiratory/Chest: Decreased breath sounds, CTA Cardiovascular: S1, S2, No murmur Abdomen/GI:Soft, distended, tender generalized, Bowel sounds present Extremities/Musculoskelatal:normal inspection, no edema Neurologic/Psych:AAOX3, grossly no focal neurological deficits Skin: normal color, warm Lab data as noted below. ASSESSMENT & PLAN: Patient is a 61yr female with a PMH of COPD, chronic hepatitis C, hepatitis B, fatty liver, alcohol abuse, tobacco abuse disorder presents with abnormal vital signs at home and was found to be hypotensive and confused. Hypotension: Likely 2/2 poor PO intake, vomiting and she is on diuretics and intravascular volume depletion S/P 2 L of fluid in the ER. BP is stable Hold diuretics for now Orthostatic vitals Fall precautions Will give Albumin as per GI recommendations Decompensated chronic liver disease: H/o alcohol abuse, chronic Hep C, Hep B Still completing Doxy course from SBP since last admission Planned for Paracentesis today continue Lactulose GI consulted Follow up ascitic fluid studies Confusion: Now back to baseline Head CT to r/o any acute pathology Likely due to hepatic encephalopathy continue Lactulose 15mg TID Ammonia: 44 BRADLEY: Cr:1.5 >>> 1.67 Baseline ~0.8 Likely pre-renal 2/2 poor PO intake and intravascular volume depletion Avoid nephrotoxic agents, cautious with IVF Will monitor renal function give Albumin as per GI H/o alcohol abuse: Continue thiamine Continue home gabapentin TID in case of withdrawal Denies drinking since last month COPD: Compensated Continue home meds Duonebs PRN Tobacco abuse disorder: Denied need for nicotine patch Has decreased use in the past few months DVT Px: Heparin SQ Code status: FULL PCP: Jey Dispo: SW consulted to help with discharge placement Patient prefers to be discharged home Vital Signs: Date Time Temp Pulse Resp B/P (MAP) Pulse Ox O2 Delivery O2 Flow Rate FiO2 03/04/17 15:20 37.4 94 16 81/49 (60) 89 Room Air 03/04/17 12:50 36.9 93 20 92/57 (69) 92 Room Air 03/04/17 11:34 36.5 102 20 95/62 (73) 94 Room Air 03/04/17 08:30 Room Air 03/04/17 07:51 36.7 96 19 90/51 (64) 91 Room Air 03/04/17 04:15 Room Air 03/04/17 03:54 37.1 89 17 90/55 (67) 100 Room Air 03/04/17 00:00 Room Air 03/03/17 23:46 37.1 86 17 86/52 (63) 92 03/03/17 20:30 96 Room Air 03/03/17 18:27 36.5 93 18 93/64 (74) 96 Room Air 03/03/17 18:02 91 20 103/50 100 03/03/17 17:48 91 20 103/50 100 Room Air 03/03/17 17:16 90 03/03/17 16:46 84 18 92/51 96 Room Air 03/03/17 16:45 96 Room Air Lab Results: Results Past 24 Hours Test 03/03/17 16:34 03/03/17 16:41 03/04/17 05:45 03/04/17 09:55 Range/Units Urine Color YELLOW Urine Appearance CLOUDY CLEAR Urine pH 7.5 4.5-7.5 Urine Specific [place] 1.009 1.000-1.030 Urine Protein NEG NEG Urine Glucose (UA) NEG NEG Urine Ketones NEG NEG Urine Occult Blood NEG NEG Urine Nitrite NEG NEG Urine Bilirubin NEG NEG Urine Urobilinogen NEG NEG Urine Leukocyte Esterase NEG NEG Urine WBC (Auto) 1-5 0-5 /hpf Urine RBC (Auto) 0-4 0-4 /hpf Urine Hyaline Casts (Auto) 5-10 0-5 /lpf Urine Epithelial Cells (Auto) >30 0-5 /lpf Urine Bacteria (Auto) NEG NEG Ammonia 44.4 11-32 umol/L White Blood Count 9.00 4.8-10.8 K/uL Red Blood Count 2.74 4.2-5.4 M/uL Hemoglobin 9.0 12.0-16.0 g/dL Hematocrit 27.3 37-47 % Mean Corpuscular Volume 99.6 80-100 fL Mean Corpuscular Hemoglobin 32.8 25-34 pg Mean Corpuscular Hemoglobin Concent 33.0 32-36 g/dl RDW Standard Deviation 50.4 36.4-46.3 fL RDW Coefficient of Variation 13.9 11.5-14.5 % Platelet Count 312 130-400 K/uL Mean Platelet Volume 9.8 7.4-10.4 fL Prothrombin Time 13.3 9.0-12.0 SECONDS Prothromb Time International Ratio 1.2 0.9-1.1 Sodium Level 137 136-145 mmol/L Potassium Level 4.7 3.5-5.1 mmol/L Chloride Level 106 98-107 mmol/L Carbon Dioxide Level 23 21-32 mmol/L Anion Gap 7.0 3-11 mmol/L Blood Urea Nitrogen 13 7-18 mg/dl Creatinine 1.67 0.60-1.20 mg/dl Est Creatinine Clear Calc Drug Dose 31.0 ml/min Estimated GFR () 38.1 Estimated GFR (Non- 32.9 BUN/Creatinine Ratio 7.7 03-04 Random Glucose 58 70-99 mg/dl Calcium Level 8.5 8.5-10.1 mg/dl Total Bilirubin 0.7 0.2-1 mg/dl Aspartate Amino Transf (AST/SGOT) 46 15-37 U/L Alanine Aminotransferase (ALT/SGPT) 17 12-78 U/L Alkaline Phosphatase 73 45-117 U/L Total Protein 6.0 6.4-8.2 gm/dl Albumin 2.3 3.4-5.0 gm/dl Globulin 3.7 2.5-4.0 gm/dl Albumin/Globulin Ratio 0.6 0.9-2 Peritoneal Fluid Color YELLOW Peritoneal Fluid Appearance CLEAR Peritoneal Fluid WBC 160 0-300 /uL Peritoneal Fluid RBC < 3000 /uL Peritoneal Fld Mononuclear WBCs (%) 86.1 % Peritoneal Fld Polynuclear WBCs (%) 13.9 % Peritoneal Fluid Total Protein 1.7 g/dl Peritoneal Fluid Albumin 0.8 g/dl Peritoneal Fluid LDH 45 IU Peritoneal Fluid Glucose 68 mg/dl Peritoneal Fluid Amylase 6 U/L Peritoneal Fluid Lipase 20 U/L Peritoneal Fluid Triglycerides 47 mg/dl Test 03/04/17 14:05 Range/Units Urine Random Sodium 66 mEq/L Urine Random Urea Nitrogen 197 mg/dl Microbiology Results 03/03/17 MRSA DNA Surveillance Screen - Final, Complete Specimen Negative for MRSA by DNA Probe 03/04/17 Acid Fast Stain, Received Pending 03/04/17 Mycobacterial Culture, Received Pending 03/04/17 Gram Stain, Received Pending 03/04/17 Bacterial Culture, Received Pending
[2017-03-04] MEDS: NICOTINE 21 MG/24 HR TDSY TD SCH (10:32)
[2017-03-04] MEDS: HYOSCYAMINE SULFATE 0.125 MG SL TAB PO SCH ×4 (10:32→20:25)
[2017-03-04] MEDS: LEVOTHYROXINE 25 MCG TAB PO SCH (10:32)
[2017-03-04] MEDS: DOXYCYCLINE HYCLATE 100 MG CAP PO SCH ×2 (10:33→20:25)
[2017-03-04] MEDS: LACTULOSE SYRUP 10 GM/15 ML BTL 473 ML PO SCH ×3 (10:33→20:25)
[2017-03-04] MEDS: THIAMINE HCL 100 MG TAB PO SCH (10:33)
[2017-03-04] MEDS: GABAPENTIN 300 MG CAP PO SCH ×3 (10:33→20:25)
[2017-03-04] MEDS: HEPARIN SOD 5000 UNIT/0.5 ML CARP SQ SCH ×2 (10:39→20:00)
[2017-03-04] MEDS ORDERED: ALBUMIN HUMAN 25% 12.5 GM/50 ML VIAL IV SCH (10:45)
--- NOTE | 2017-03-04 11:25 | DIAGNOSTIC IMAGING REPORT ---
ULTRASOUND-GUIDED DIAGNOSTIC AND THERAPEUTIC PARACENTESIS: HISTORY: Ascites. Procedure: The procedure and its risks, benefits and alternatives were discussed with the patient and written informed consent was obtained. Preliminary ultrasound of the abdomen was performed to determine a safe needle entry site. The right upper quadrant was prepped and draped in the usual sterile fashion. 1% Lidocaine was used for local anesthesia. A paracentesis needle-sheath was inserted into the peritoneal space using ultrasound guidance. The needle was removed and the sheath was connected to tubing and a vacuum suction device. A total of 3 liters of yellow ascites was aspirated. The sheath was removed and a sterile dressing applied. The patient tolerated the procedure well and there were no immediate complications. IMPRESSION: Ultrasound-guided therapeutic and diagnostic paracentesis with aspiration of 3 liters of ascites. 1 L was sent to the laboratory for further analysis. Electronically signed by: Omar Gutierrez M.D. 03/04/2017 11:24 AM Dictated Date/Time: 03/04/2017 11:23 AM
[2017-03-04 12:51] LABS: PERIT FL WBC 160 /uL (0-300); PERITONEAL FLUID RBC < 3000 /uL
[2017-03-04 14:43] LABS: UREA NITROGEN RANDOM URINE 197 mg/dl
[2017-03-04] MEDS: OXYCODONE HCL IR 5 MG TAB (IMMEDIATE RELEASE) PO PRN (20:34)
[2017-03-05 03:48] VITALS: BP 93/59; PULSE 95; TEMP 36.8; O2SAT 93
[2017-03-05] MEDS: LEVOTHYROXINE 25 MCG TAB PO SCH (05:36)
[2017-03-05 07:41] VITALS: BP 85/52; PULSE 99; TEMP 36.7; O2SAT 99
[2017-03-05 08:17] LABS: HEMATOCRIT 26.1 % (37-47); MEAN CELL VOLUME 98.9 fL (80-100); MEAN CORPUSCULAR HGB CONC 33.3 g/dl (32-36); MEAN PLATELET VOLUME 10.5 fL (7.4-10.4); PLATELET COUNT 318 K/uL (130-400); RED BLOOD COUNT 2.64 M/uL (4.2-5.4); WHITE BLOOD COUNT 11.39 K/uL (4.8-10.8)
[2017-03-05] MEDS: DOXYCYCLINE HYCLATE 100 MG CAP PO SCH ×2 (08:18→19:29)
[2017-03-05] MEDS: THIAMINE HCL 100 MG TAB PO SCH (08:18)
[2017-03-05] MEDS: GABAPENTIN 300 MG CAP PO SCH ×3 (08:18→19:29)
[2017-03-05] MEDS: NICOTINE 21 MG/24 HR TDSY TD SCH (08:19)
[2017-03-05] MEDS: LACTULOSE SYRUP 10 GM/15 ML BTL 473 ML PO SCH ×3 (08:19→19:28)
[2017-03-05] MEDS: HYOSCYAMINE SULFATE 0.125 MG SL TAB PO SCH ×4 (08:19→19:28)
[2017-03-05] MEDS: HEPARIN SOD 5000 UNIT/0.5 ML CARP SQ SCH ×2 (08:20→19:30)
[2017-03-05 08:37] LABS: BUN/CREATININE RATIO 7.1 (10-20); CREATININE 1.61 mg/dl (0.60-1.20); MAGNESIUM 1.6 mg/dl (1.8-2.4); POTASSIUM 4.3 mmol/L (3.5-5.1)
[2017-03-05 11:34] VITALS: BP 92/59; PULSE 107; TEMP 37.5; O2SAT 95
--- NOTE | 2017-03-05 13:01 | Progress Note ---
Internal Med Progress Note Date of Service: Mar 05, 2017. Provider Documentation: SUBJECTIVE: The patient was seen and examined feels drowsy and sleepy -as usual Denies any other symptoms OBJECTIVE: Vital Signs-as noted below Exam: General-No distress at rest Eyes-normal ENT-normal Neck-supple Lungs-Clear to auscultate bilaterally Heart-Regular,no murmur Abdomen-Benign,Distended,moderate amount of Ascites,no masses,bowel sound present Extremities-No edema Neuro-AAOx3 Minimally drowsy Lab data as noted below. ASSESSMENT & PLAN: Patient is a 61yr female with a PMH of COPD, chronic hepatitis C, hepatitis B, fatty liver, alcohol abuse, tobacco abuse disorder presents with abnormal vital signs at home and was found to be hypotensive and confused. Hypotension: Likely 2/2 poor PO intake, vomiting and she is on diuretics and intravascular volume depletion S/P 2 L of fluid in the ER. BP normalized Diuretics are on Hold now Fall precautions Will give Albumin as per GI recommendations Decompensated chronic liver disease: H/o alcohol abuse, chronic Hep C, Hep B-none is active now Still completing Doxy course from SBP since last admission S/P Paracentesis -Gm stain and Culture-pending ,Cell count does not support Peritonitis Continue Lactulose GI consulted-appreciate Input Confusion: -cleared to baseline Head CT to r/o any acute pathology Likely due to hepatic encephalopathy continue Lactulose 15mg TID Ammonia: 44 BRADLEY: Cr:1.5 >>> 1.67 Baseline ~0.8 Likely pre-renal 2/2 poor PO intake and intravascular volume depletion Avoid nephrotoxic agents, cautious with IVF Will monitor renal function give Albumin as per GI Creatinine is stable H/o alcohol abuse: Continue thiamine Continue home gabapentin TID in case of withdrawal Denies drinking since last month COPD: Compensated Continue home meds Duonebs PRN Tobacco abuse disorder: Denied need for nicotine patch Has decreased use in the past few months DVT Px: Heparin SQ Code status: FULL PCP: Jey Dispo: SW consulted to help with discharge placement Patient prefers to be discharged home Vital Signs: Date Time Temp Pulse Resp B/P (MAP) Pulse Ox O2 Delivery O2 Flow Rate FiO2 03/05/17 11:34 37.5 107 20 92/59 (70) 95 Nasal Cannula 2.0 03/05/17 07:41 36.7 99 19 85/52 (63) 99 Nasal Cannula 2.0 03/05/17 04:00 Nasal Cannula 2.0 03/05/17 03:48 36.8 95 17 93/59 (70) 93 Nasal Cannula 2.0 03/05/17 00:00 Nasal Cannula 2.0 03/04/17 23:42 36.7 99 18 94/54 (67) 97 2.0 03/04/17 20:08 94 Nasal Cannula 2.0 03/04/17 19:54 36.6 92 16 85/50 (62) 94 Nasal Cannula 2.0 03/04/17 19:54 Room Air 03/04/17 17:07 94/58 (70) 03/04/17 16:00 Room Air 03/04/17 15:20 37.4 94 16 81/49 (60) 89 Room Air Lab Results: Results Past 24 Hours Test 03/04/17 14:05 03/05/17 07:29 03/05/17 07:47 Range/Units Urine Random Sodium 66 mEq/L Urine Random Urea Nitrogen 197 mg/dl White Blood Count 11.39 4.8-10.8 K/uL Red Blood Count 2.64 4.2-5.4 M/uL Hemoglobin 8.7 12.0-16.0 g/dL Hematocrit 26.1 37-47 % Mean Corpuscular Volume 98.9 80-100 fL Mean Corpuscular Hemoglobin 33.0 25-34 pg Mean Corpuscular Hemoglobin Concent 33.3 32-36 g/dl RDW Standard Deviation 49.9 36.4-46.3 fL RDW Coefficient of Variation 13.9 11.5-14.5 % Platelet Count 318 130-400 K/uL Mean Platelet Volume 10.5 7.4-10.4 fL Sodium Level 137 136-145 mmol/L Potassium Level 4.3 3.5-5.1 mmol/L Chloride Level 109 98-107 mmol/L Carbon Dioxide Level 20 21-32 mmol/L Anion Gap 8.0 3-11 mmol/L Blood Urea Nitrogen 12 7-18 mg/dl Creatinine 1.61 0.60-1.20 mg/dl Est Creatinine Clear Calc Drug Dose 32.1 ml/min Estimated GFR () 39.9 Estimated GFR (Non- 34.4 BUN/Creatinine Ratio 7.1 10-20 Random Glucose 62 70-99 mg/dl Calcium Level 8.0 8.5-10.1 mg/dl Magnesium Level 1.6 1.8-2.4 mg/dl Ammonia 50.7 11-32 umol/L
[2017-03-05 15:34] VITALS: BP 87/42; PULSE 87; TEMP 36.9; O2SAT 97
[2017-03-05] MEDS ORDERED: MAGNESIUM SULFATE 1GM / D5W 1 GM in PREMIXED IN D5W 100 ML IV SCH (17:15)
[2017-03-05] MEDS: ONDANSETRON INJ 2 MG/ML 2 ML VIAL IV PRN (18:26)
[2017-03-05] MEDS: OXYCODONE HCL IR 5 MG TAB (IMMEDIATE RELEASE) PO PRN (19:27)
[2017-03-05 19:30] VITALS: BP 93/55; PULSE 84; TEMP 36.8; O2SAT 97
[2017-03-05 20:00] VITALS: O2SAT 97
[2017-03-06] VITALS (11 sets, daily range): BP systolic 80–92; BP diastolic 46–65; PULSE 91–96; TEMP 36.5–37.1; O2SAT 92–98
[2017-03-06] MEDS: LEVOTHYROXINE 25 MCG TAB PO SCH (05:51)
[2017-03-06] MEDS: OXYCODONE HCL IR 5 MG TAB (IMMEDIATE RELEASE) PO PRN ×3 (06:11→21:58)
[2017-03-06 07:29] LABS: BUN/CREATININE RATIO 7.5 (10-20); CALCIUM 8.2 mg/dl (8.5-10.1); CREATININE 1.71 mg/dl (0.60-1.20); MAGNESIUM 2.1 mg/dl (1.8-2.4); POTASSIUM 3.8 mmol/L (3.5-5.1)
[2017-03-06] MEDS: GABAPENTIN 300 MG CAP PO SCH ×3 (07:37→19:47)
[2017-03-06] MEDS: HYOSCYAMINE SULFATE 0.125 MG SL TAB PO SCH ×4 (07:37→19:47)
[2017-03-06] MEDS: LACTULOSE SYRUP 10 GM/15 ML BTL 473 ML PO SCH ×3 (07:37→19:48)
[2017-03-06] MEDS: THIAMINE HCL 100 MG TAB PO SCH (07:37)
[2017-03-06] MEDS: DOXYCYCLINE HYCLATE 100 MG CAP PO SCH ×2 (07:38→19:46)
[2017-03-06] MEDS: NICOTINE 21 MG/24 HR TDSY TD SCH (07:38)
[2017-03-06] MEDS: HEPARIN SOD 5000 UNIT/0.5 ML CARP SQ SCH ×2 (07:49→19:49)
[2017-03-06] MEDS: ONDANSETRON INJ 2 MG/ML 2 ML VIAL IV PRN (07:55)
--- NOTE | 2017-03-06 11:39 | Progress Note ---
Internal Med Progress Note Date of Service: Mar 06, 2017. Provider Documentation: SUBJECTIVE: The patient was seen and examined Feels drowsy and sleepy -as usual Complains of abdominal distension and discomfort No more confusion OBJECTIVE: Vital Signs-as noted below Exam: General-No distress at rest No Hepatic Flup Eyes-normal ENT-normal Neck-supple Lungs-Clear to auscultate bilaterally Heart-Regular,no murmur Abdomen-Benign,Distended,moderate amount of Ascites,no masses,bowel sound present Extremities-No edema Neuro-AAOx3 Minimally drowsy Lab data as noted below. ASSESSMENT & PLAN: Patient is a 61yr female with a PMH of COPD, chronic hepatitis C, hepatitis B, fatty liver, alcohol abuse, tobacco abuse disorder presents with abnormal vital signs at home and was found to be hypotensive and confused. Recurrent Ascites Secondary to Cirrhosis S/P Paracentesis on 03/04/17 Likely to need another tap Await GI evaluation Hypotension: Likely 2/2 poor PO intake, vomiting and she is on diuretics and intravascular volume depletion S/P 2 L of fluid in the ER. BP normalized Diuretics are on Hold now Fall precautions Will give Albumin as per GI recommendations Remains on the Lower side -without any symptoms Decompensated chronic liver disease: H/o alcohol abuse, chronic Hep C, Hep B-none is active now Still completing Doxy course from SBP since last admission S/P Paracentesis -Gm stain and Culture-pending ,Cell count does not support Peritonitis Continue Lactulose -bowel moving 2-3 times daily GI consulted-appreciate Input Confusion: -cleared to baseline Head CT to r/o any acute pathology Likely due to hepatic encephalopathy continue Lactulose 15mg TID Ammonia: 44 BRADLEY: Cr:1.5 >>> 1.67 Baseline ~0.8 Likely pre-renal 2/2 poor PO intake and intravascular volume depletion Avoid nephrotoxic agents, cautious with IVF Will monitor renal function give Albumin as per GI Creatinine is stable H/o alcohol abuse: Continue thiamine Continue home gabapentin TID in case of withdrawal Denies drinking since last month COPD: Compensated Continue home meds DuoNeb PRN Tobacco abuse disorder: Denied need for nicotine patch Has decreased use in the past few months DVT Px: Heparin SQ Code status: FULL PCP: Jey Dispo: SW consulted to help with discharge placement Patient prefers to be discharged home Vital Signs: Date Time Temp Pulse Resp B/P (MAP) Pulse Ox O2 Delivery O2 Flow Rate FiO2 03/06/17 11:33 36.5 91 19 82/65 (71) 92 Nasal Cannula 2.0 03/06/17 08:06 36.7 93 19 88/48 (61) 97 Nasal Cannula 2.0 03/06/17 08:00 Nasal Cannula 2.0 03/06/17 05:55 36.8 96 18 86/62 (70) 96 Nasal Cannula 2.0 03/06/17 04:19 97 Nasal Cannula 2.0 03/06/17 00:26 97 Nasal Cannula 2.0 03/06/17 00:15 37.0 91 16 92/57 (69) 93 Nasal Cannula 2.0 03/05/17 20:00 97 Nasal Cannula 2.0 03/05/17 19:30 36.8 84 18 93/55 (68) 97 Nasal Cannula 2.0 03/05/17 15:34 36.9 87 16 87/42 (57) 97 Nasal Cannula 2.0 03/05/17 15:30 Room Air 03/05/17 12:00 Room Air Lab Results: Results Past 24 Hours Test 03/06/17 06:45 Range/Units Sodium Level 139 136-145 mmol/L Potassium Level 3.8 3.5-5.1 mmol/L Chloride Level 110 98-107 mmol/L Carbon Dioxide Level 21 21-32 mmol/L Anion Gap 8.0 3-11 mmol/L Blood Urea Nitrogen 13 7-18 mg/dl Creatinine 1.71 0.60-1.20 mg/dl Est Creatinine Clear Calc Drug Dose 30.2 ml/min Estimated GFR () 37.1 Estimated GFR (Non- 32.0 BUN/Creatinine Ratio 7.5 10-20 Random Glucose 77 70-99 mg/dl Calcium Level 8.2 8.5-10.1 mg/dl Magnesium Level 2.1 1.8-2.4 mg/dl
[2017-03-07] VITALS (9 sets, daily range): BP systolic 67–94; BP diastolic 41–61; PULSE 80–91; TEMP 36.2–36.8; O2SAT 93–99
[2017-03-07] MEDS: LEVOTHYROXINE 25 MCG TAB PO SCH (05:38)
[2017-03-07 07:32] LABS: BUN/CREATININE RATIO 9.4 (10-20); CALCIUM 8.3 mg/dl (8.5-10.1); CREATININE 1.67 mg/dl (0.60-1.20); POTASSIUM 4.1 mmol/L (3.5-5.1)
[2017-03-07] MEDS: HEPARIN SOD 5000 UNIT/0.5 ML CARP SQ SCH ×2 (08:00→20:35)
[2017-03-07] MEDS: THIAMINE HCL 100 MG TAB PO SCH (08:29)
[2017-03-07] MEDS: DOXYCYCLINE HYCLATE 100 MG CAP PO SCH ×2 (08:30→20:28)
[2017-03-07] MEDS ORDERED: NURSING VERBAL MED ORDER ONE ×2 (08:30→15:45)
[2017-03-07] MEDS: GABAPENTIN 300 MG CAP PO SCH ×3 (08:30→20:28)
[2017-03-07] MEDS: HYOSCYAMINE SULFATE 0.125 MG SL TAB PO SCH ×4 (08:30→20:28)
[2017-03-07] MEDS: NICOTINE 21 MG/24 HR TDSY TD SCH (08:31)
[2017-03-07] MEDS: LACTULOSE SYRUP 10 GM/15 ML BTL 473 ML PO SCH ×3 (08:31→20:27)
--- NOTE | 2017-03-07 09:17 | Gastroenterology Progress Note ---
Progress Note Date of Service: Mar 07, 2017 Subjective Pt evaluation today including: conversation w/ patient, physical exam, chart review, lab review Pt seen and evaluated, chart reviewed. No acute events. Reports build up of fluid since she had paracentesis with 3L off on Tuesday. Reports uncomfortable full feelings. Kidney function without any improvement over the weekend with diuretics held. No fever, chills, CP, SOB, N/V, black/bloody stools. Review of Systems Constitutional: No fever, No chills Respiratory: No cough, No shortness of breath Cardiac: No chest pain, No edema Abdomen: + pain, No nausea, No vomiting, No diarrhea, No constipation, No GI bleeding Medications Current Inpatient Medications Medications (Trade) Dose Ordered Sig/Shelby Route Start Time Stop Time Status Last Admin Dose Admin Ondansetron HCl (Zofran Inj) 4 mg Q6H PRN IV 03/03/17 17:15 04/02/17 17:14 03/06/17 07:55 4 MG Lactulose (Chronulac Syrup) 15 gm TID PO 03/03/17 21:00 04/02/17 20:59 03/06/17 19:48 15 GM Albuterol (Ventolin Hfa Inhaler) 2 puffs Q4 PRN INH 03/03/17 18:30 04/02/17 18:29 Folic Acid (Folvite Tab) 1 mg QAM PO 03/04/17 09:00 04/03/17 08:59 03/06/17 07:38 1 MG Gabapentin (Neurontin Cap) 300 mg TID PO 03/03/17 21:00 04/02/17 20:59 03/06/17 19:47 300 MG Hyoscyamine Sulfate (Levsin Tab) 0.125 mg QID PO 03/03/17 21:00 04/02/17 20:59 03/06/17 19:47 0.125 MG Levothyroxine Sodium (Synthroid Tab) 25 mcg DAILYBB PO 03/04/17 07:00 04/03/17 06:59 03/07/17 05:38 25 MCG Thiamine HCl (Vitamin B-1 Tab) 100 mg QAM PO 03/04/17 09:00 04/03/17 08:59 03/06/17 07:37 100 MG Doxycycline Hyclate (Vibramycin Cap) 100 mg BID PO 03/03/17 21:00 03/17/17 20:59 03/06/17 19:46 100 MG Albuterol/ Ipratropium (Duoneb) 3 ml Q4R PRN INH 03/03/17 18:30 04/02/17 18:29 Acetaminophen (Tylenol Tab) 325 mg Q6H PRN PO 03/03/17 20:30 04/02/17 20:29 Oxycodone HCl (Roxicodone Immediate Rel Tab) 5 mg Q6H PRN PO 03/03/17 20:30 03/17/17 20:29 03/06/17 21:58 5 MG Hydromorphone HCl (Dilaudid Inj) 0.5 mg Q4H PRN IV 03/03/17 20:30 03/17/17 20:29 Nicotine (Nicoderm Cq 21MG Patch) 1 patch QAM TD 03/04/17 09:00 04/03/17 08:59 03/06/17 07:38 1 PATCH Miscellaneous (Remove Nicoderm Patch) 1 ea HS N/A 03/04/17 21:00 04/03/17 20:59 03/06/17 19:46 1 EA Heparin Sodium (Porcine) (Heparin Sq 5000 Unit/0.5ml) 5,000 unit Q12H SQ 03/04/17 08:00 04/03/17 07:59 Future hold 03/06/17 19:49 5,000 UNIT Objective Vital Signs Date Time Temp Pulse Resp B/P (MAP) Pulse Ox O2 Delivery O2 Flow Rate FiO2 03/07/17 07:19 36.8 90 22 79/43 (55) Nasal Cannula 2.0 03/07/17 04:13 36.6 81 19 90/61 (71) 93 03/07/17 04:11 97 Nasal Cannula 2.0 03/07/17 00:19 97 Nasal Cannula 2.0 03/06/17 22:45 36.8 94 18 81/53 (62) 97 Nasal Cannula 2.0 Humidified Oxygen 03/06/17 20:00 97 Nasal Cannula 2.0 03/06/17 19:08 37.0 94 18 91/60 (70) 98 Nasal Cannula 2.0 03/06/17 16:00 96 Nasal Cannula 2.0 03/06/17 15:33 37.1 93 18 80/46 (57) 96 Room Air 03/06/17 12:05 Nasal Cannula 2.0 03/06/17 11:33 36.5 91 19 82/65 (71) 92 Nasal Cannula 2.0 Physical Exam General Appearance: no apparent distress Eyes: PERRL ENT: hearing grossly normal Neck: supple Respiratory/Chest: lungs clear Cardiovascular: regular rate, rhythm Abdomen: normal bowel sounds, non tender, + pertinent finding (non-tense ascites) Neurologic/Psych: alert, normal mood/affect, oriented x 3 Skin: warm/dry, no rash Laboratory Results Last 24 Hours Test 03/07/17 06:45 Sodium Level 139 mmol/L Potassium Level 4.1 mmol/L Chloride Level 110 mmol/L Carbon Dioxide Level 20 mmol/L Anion Gap 9.0 mmol/L Blood Urea Nitrogen 16 mg/dl Creatinine 1.67 mg/dl Est Creatinine Clear Calc Drug Dose 30.9 ml/min Estimated GFR () 38.1 Estimated GFR (Non- 32.9 BUN/Creatinine Ratio 9.4 Random Glucose 79 mg/dl Calcium Level 8.3 mg/dl Magnesium Level 2.0 mg/dl Assessment and Plan Patient is a 61 year old female w suspected ETOH cirrhosis, admitted for increasing abd distension and pain, recently admitted and discharged last week, on abx for SBP. Began reaccumulated abd fluid, weak, dizzy, fatigued --> ED. Hypotensive, with abd distention s/p paracentesis with 3L off. BRADLEY --> will rule out HRS. Urine NA 60, first paracentesis without evidence of SBP. Kidney function without improvement over the weekend. - Repeat diagnostic and therapeutic (no more than 5L) paracentesis - 25G 25% albumin before and after - follow up cultures, will advise ABX as appropriate - if SBP albumin 1.5g/kg x 1 day then 1g/kg albumin on day 3 - Hold diuretics - baseline creat 0.8 - Follow up urine studies - daily CMP - Lactulose 15G TID as tolerated - titrate to 2-3 BMs daily - ETOH abstinence - Correction of kidney function - consider nephrology consult - Daily MELD labs I saw and evaluated the patient. She has a history of cirrhosis related to alcoholic liver disease. She does note having persistent abdominal distention despite a recent paracentesis. Given her underlying renal failure we cannot increase any diuretics at this time. I would suggest paracentesis as needed with pre-and post procedural infusion of albumin.
[2017-03-07] MEDS ORDERED: ALBUMIN HUMAN 25% 12.5 GM/50 ML VIAL IV ONE ×2 (09:30→20:00)
[2017-03-07 10:25] LABS: ALB/GLOB RATIO 0.6 (0.9-2)
--- NOTE | 2017-03-07 13:43 | Progress Note ---
Internal Med Progress Note Date of Service: Mar 07, 2017. Provider Documentation: SUBJECTIVE: The patient was seen and examined Feels drowsy and sleepy -as usual Complains of abdominal distension and discomfort-worse today No more confusion Will have repeat paracentesis today OBJECTIVE: Vital Signs-as noted below Exam: General-No distress at rest No Hepatic Flap Eyes-normal ENT-normal Neck-supple Lungs-Clear to auscultate bilaterally Heart-Regular,no murmur Abdomen-Benign,Distended,moderate amount of Ascites,no masses,bowel sound present Minimally tender all over Extremities-No edema Neuro-AAOx3 Minimally drowsy Lab data as noted below. ASSESSMENT & PLAN: Patient is a 61yr female with a PMH of COPD, chronic hepatitis C, hepatitis B, fatty liver, alcohol abuse, tobacco abuse disorder presents with abnormal vital signs at home and was found to be hypotensive and confused. Recurrent Ascites Secondary to Cirrhosis S/P Paracentesis on 03/04/17 No improvement with the Ascites-in fact worse Appreciate GI evaluation Will have another paracentesis today Pre and Post Albumin BRADLEY: May has Hepatorenal Syndrome Cr:1.5 >>> 1.67 Baseline ~0.8 Likely pre-renal 2/2 poor PO intake and intravascular volume depletion Avoid nephrotoxic agents, cautious with IVF Will monitor renal function-has not been getting any better give Albumin as per GI Creatinine is not improving Will consult Nephrology Hypotension: Likely 2/2 poor PO intake, vomiting and she is on diuretics and intravascular volume depletion S/P 2 L of fluid in the ER. BP normalized Diuretics are on Hold now Fall precautions Will give Albumin as per GI recommendations Remains on the Lower side -without any symptoms Decompensated chronic liver disease: H/o alcohol abuse, chronic Hep C, Hep B-none is active now Still completing Doxy course from SBP since last admission S/P Paracentesis -Gm stain and Culture-pending ,Cell count does not support Peritonitis Continue Lactulose -bowel moving 2-3 times daily Clinically a lot better ,no confusion Has symptomatic Ascites Confusion: -cleared to baseline Head CT to r/o any acute pathology Likely due to hepatic encephalopathy continue Lactulose 15mg TID Ammonia: 44 NO SBP H/o alcohol abuse: Continue thiamine Continue home gabapentin TID in case of withdrawal Denies drinking since last month COPD: Compensated Continue home meds DuoNeb PRN Tobacco abuse disorder: Denied need for nicotine patch Has decreased use in the past few months DVT Px: Heparin SQ Code status: FULL PCP: Jey Dispo: SW consulted to help with discharge placement Patient prefers to be discharged home Vital Signs: Date Time Temp Pulse Resp B/P (MAP) Pulse Ox O2 Delivery O2 Flow Rate FiO2 03/07/17 12:00 Nasal Cannula 2.0 03/07/17 10:39 36.8 91 21 80/53 (62) Nasal Cannula 2.0 03/07/17 09:26 Nasal Cannula 2.0 03/07/17 08:00 Nasal Cannula 2.0 03/07/17 07:19 36.8 90 22 79/43 (55) Nasal Cannula 2.0 03/07/17 04:13 36.6 81 19 90/61 (71) 93 03/07/17 04:11 97 Nasal Cannula 2.0 03/07/17 00:19 97 Nasal Cannula 2.0 03/06/17 22:45 36.8 94 18 81/53 (62) 97 Nasal Cannula 2.0 Humidified Oxygen 03/06/17 20:00 97 Nasal Cannula 2.0 03/06/17 19:08 37.0 94 18 91/60 (70) 98 Nasal Cannula 2.0 03/06/17 16:00 96 Nasal Cannula 2.0 03/06/17 15:33 37.1 93 18 80/46 (57) 96 Room Air Lab Results: Results Past 24 Hours Test 03/07/17 06:45 Range/Units Sodium Level 139 136-145 mmol/L Potassium Level 4.1 3.5-5.1 mmol/L Chloride Level 110 98-107 mmol/L Carbon Dioxide Level 20 21-32 mmol/L Anion Gap 9.0 3-11 mmol/L Blood Urea Nitrogen 16 7-18 mg/dl Creatinine 1.67 0.60-1.20 mg/dl Est Creatinine Clear Calc Drug Dose 30.9 ml/min Estimated GFR () 38.1 Estimated GFR (Non- 32.9 BUN/Creatinine Ratio 9.4 10-20 Random Glucose 79 70-99 mg/dl Calcium Level 8.3 8.5-10.1 mg/dl Magnesium Level 2.0 1.8-2.4 mg/dl Total Bilirubin 0.6 0.2-1 mg/dl Aspartate Amino Transf (AST/SGOT) 73 15-37 U/L Alanine Aminotransferase (ALT/SGPT) 24 12-78 U/L Alkaline Phosphatase 87 45-117 U/L Total Protein 6.1 6.4-8.2 gm/dl Albumin 2.3 3.4-5.0 gm/dl Globulin 3.8 2.5-4.0 gm/dl Albumin/Globulin Ratio 0.6 0.9-2
[2017-03-07] MEDS ORDERED: ALBUMIN HUMAN 25% 12.5 GM/50 ML VIAL IV SCH (14:00)
--- NOTE | 2017-03-07 14:47 | DIAGNOSTIC IMAGING REPORT ---
PARACENTESIS UNDER ULTRASOUND GUIDANCE CLINICAL HISTORY: ascites COMPARISON STUDY: 03/04/2017 FINDINGS: The risks, benefits, and alternatives to the procedure were discussed with the patient. Written informed consent was obtained. Following real-time ultrasound localization, the skin was prepped and draped. Following local anesthesia with Xylocaine, the sheath paracentesis needle was inserted and approximately 4 liters of straw-colored fluid was removed by vacuum suction. A right lower quadrant approach was utilized. The patient tolerated the procedure well and left the department in satisfactory condition. IMPRESSION: Successful ultrasound-guided paracentesis with removal of approximately 4 liters of ascitic fluid. Electronically signed by: Dalton Hassan M.D. 03/07/2017 2:46 PM Dictated Date/Time: 03/07/2017 2:44 PM
[2017-03-07] MEDS ORDERED: SODIUM CHLORIDE 0.9% 500ML 500 ML IV ONE (16:15)
[2017-03-07 19:27] LABS: PERIT FL WBC 187 /uL (0-300); PERITONEAL FLUID RBC < 3000 /uL
[2017-03-07 21:01] LABS: BUN/CREATININE RATIO 10.4 (10-20); CALCIUM 8.6 mg/dl (8.5-10.1); CREATININE 1.61 mg/dl (0.60-1.20); MAGNESIUM 1.7 mg/dl (1.8-2.4); POTASSIUM 3.7 mmol/L (3.5-5.1)
[2017-03-07] MEDS ORDERED: MAGNESIUM SULFATE 1GM / D5W 1 GM in PREMIXED IN D5W 100 ML IV ONE (21:45)
[2017-03-07] MEDS: ONDANSETRON INJ 2 MG/ML 2 ML VIAL IV PRN (21:48)
[2017-03-08 03:15] VITALS: BP 89/46; PULSE 94; TEMP 36.6; O2SAT 97
[2017-03-08] MEDS: LEVOTHYROXINE 25 MCG TAB PO SCH (05:39)
[2017-03-08 06:23] LABS: HEMATOCRIT 25.9 % (37-47); MEAN CELL VOLUME 99.2 fL (80-100); MEAN CORPUSCULAR HEMOGLOBIN 32.2 pg (25-34); MEAN CORPUSCULAR HGB CONC 32.4 g/dl (32-36); MEAN PLATELET VOLUME 10.9 fL (7.4-10.4); PLATELET COUNT 205 K/uL (130-400); RED BLOOD COUNT 2.61 M/uL (4.2-5.4); WHITE BLOOD COUNT 8.74 K/uL (4.8-10.8)
[2017-03-08 06:59] LABS: BUN/CREATININE RATIO 10.9 (10-20); CALCIUM 8.2 mg/dl (8.5-10.1); CREATININE 1.5 mg/dl (0.60-1.20); MAGNESIUM 2.1 mg/dl (1.8-2.4); POTASSIUM 3.7 mmol/L (3.5-5.1)
[2017-03-08 07:54] VITALS: BP 91/59; PULSE 98; TEMP 36.8; O2SAT 98
[2017-03-08] MEDS: LACTULOSE SYRUP 10 GM/15 ML BTL 473 ML PO SCH ×3 (08:22→19:57)
[2017-03-08] MEDS: GABAPENTIN 300 MG CAP PO SCH ×3 (08:22→20:36)
[2017-03-08] MEDS: HYOSCYAMINE SULFATE 0.125 MG SL TAB PO SCH ×4 (08:23→20:36)
[2017-03-08] MEDS: DOXYCYCLINE HYCLATE 100 MG CAP PO SCH ×2 (08:23→20:36)
[2017-03-08] MEDS: THIAMINE HCL 100 MG TAB PO SCH (08:23)
[2017-03-08] MEDS: NICOTINE 21 MG/24 HR TDSY TD SCH (08:23)
[2017-03-08] MEDS: HEPARIN SOD 5000 UNIT/0.5 ML CARP SQ SCH ×2 (08:29→20:48)
--- NOTE | 2017-03-08 09:00 | NEPHROLOGY CONSULTATION ---
DATE OF CONSULTATION: 03/08/2017 ATTENDING OF RECORD: Enzo Johnson MD. REASON FOR CONSULTATION: Elevated creatinine. HISTORY OF PRESENT ILLNESS: This is a 61-year-old female with significant history of chronic hepatitis B and C with alcohol abuse and tobacco abuse and underlying COPD who was recently admitted to the hospital with staph aureus bacteremia from peritonitis about 2 weeks ago, has had multiple paracenteses done in the past and was discharged on a fluid restriction and diuretics. However, when she went home, she continued to slowly deteriorate, feeling weak and dizzy with nausea and vomiting and confusion with abdominal distention. The patient's baseline creatinine is 0.8-1 and was elevated to 1.5 and has stayed in the mid 1's range of 1.5-1.71. GI evaluated the patient and suspected alcoholic cirrhosis with worsening abdominal distention and pain on antibiotics for SBP and underwent paracentesis with albumin and held the diuretics. They did not feel this was hepatorenal syndrome given that the urine sodium was greater than 10. Despite paracentesis with albumin and holding the diuretics, creatinine has not improved. The baseline creatinine 0.8, has been in the 1.5-1.7 range. The patient now appears comfortable and alert. Blood pressures is in the 80s-90s systolics. REVIEW OF SYSTEMS: Positive shortness of breath with exertion. Positive nausea, which is improving. Positive abdominal bloating. No chest pain. No fevers or chills. No rash or itching, no blurry vision, no dysphagia. No diarrhea or constipation. All other review of systems otherwise negative. PAST MEDICAL HISTORY: Hepatitis C, alcoholic cirrhosis, COPD and seizure disorder. PAST SURGICAL HISTORY: Tubal ligation as well as exploratory laparotomy. FAMILY HISTORY: Significant for dementia. SOCIAL HISTORY: Active smoker, 3 cigarettes a day, heavy alcohol use. No drugs. CURRENT MEDICATIONS: Folic acid 1 mg daily, thiamine 100 mg daily, nicotine patch daily, heparin 5,000 units subQ q. 12, levothyroxine 25 mcg daily, lactulose 15 grams p.o. t.i.d., Neurontin 300 p.o. t.i.d., doxycycline 100 mg p.o. b.i.d. PHYSICAL EXAMINATION VITAL SIGNS: Temperature 36.5, pulse 91, respiratory rate is 20, blood pressure 86/49, satting 97% on 2 liters. GENERAL: Awake, alert, oriented x3. EYES: No scleral icterus. ENT: Moist mucous membranes. NECK: Supple. PULMONARY: Clear to auscultation. CARDIAC: Regular rate and rhythm. ABDOMEN: Soft. Mild distention. EXTREMITIES: No clubbing, cyanosis or edema. NEUROLOGICALLY: Nonfocal. DERM: No rash or ulcers noted. LABORATORY DATA: Sodium was 140, potassium 3.7, chloride 112, bicarbonate is 18, BUN 16, creatinine is 1.5, glucose 79, calcium is 8.2. Mag is 2.1, albumin is 2.3. White count is 8.7, H&H 8.4 and 25.9, platelet count is 205. INR is 1.2. Urine random sodium is 66. Negative SBP. Blood cultures were negative. Chest x-ray on admission showed no new focal lung consolidations to suggest pneumonia, does have some underlying emphysema. CT of the abdomen showed unenhanced images of the kidneys, are normal. ASSESSMENT AND PLAN: Acute kidney injury with creatinine of 1.5 with a baseline of 0.8. Unclear how accurate I's and O's are, however, appears to be decreasing since admission. The patient's volume status though is much improved with the 2 paracenteses with appropriate albumin resuscitation. I do not feel this is hepatorenal given the fact that his urine sodium is greater than 10; however, the patient still could have an element of intravascular volume depletion. With her lungs clear and abdomen soft and volume status much improved, we would like to give albumin resuscitation for 24 hours to see if we can improve the patient's kidney function; however, the patient likely to require diuretics to help control the recurrent ascites and may need to settle for a higher creatinine. This may unfortunately be patient's new baseline; however, we will attempt more aggressive albumin resuscitation to see if we can optimize her intravascular volume status. [facility]
[2017-03-08] MEDS: ONDANSETRON INJ 2 MG/ML 2 ML VIAL IV PRN (09:07)
[2017-03-08] MEDS: ALBUMIN HUMAN 25% 12.5 GM/50 ML VIAL IV SCH ×3 (09:09→20:37)
--- NOTE | 2017-03-08 09:12 | Gastroenterology Progress Note ---
Progress Note Date of Service: Mar 08, 2017 Subjective Pt evaluation today including: conversation w/ patient, physical exam, chart review, lab review, conversation w/ technology methodology consultant Pt seen and evaluated, chart reviewed. Discussed with Dr. Blandon who is repeating urine NA and recommending IV albumin. Pt offer no new complaints this AM. Tells me her stomach is less full but can still get abdominal pain ? SBP. PMN not suggestive but will await cultures. Has 3-5 BMs daily. No black or bloody stools. Volume status looks good this AM Review of Systems Constitutional: No fever, No chills Respiratory: No cough, No shortness of breath Cardiac: No chest pain Abdomen: + pain, No nausea, No vomiting, No diarrhea, No constipation Medications Current Inpatient Medications Medications (Trade) Dose Ordered Sig/Shelby Route Start Time Stop Time Status Last Admin Dose Admin Ondansetron HCl (Zofran Inj) 4 mg Q6H PRN IV 03/03/17 17:15 04/02/17 17:14 03/07/17 21:48 4 MG Lactulose (Chronulac Syrup) 15 gm TID PO 03/03/17 21:00 04/02/17 20:59 03/08/17 08:22 15 GM Albuterol (Ventolin Hfa Inhaler) 2 puffs Q4 PRN INH 03/03/17 18:30 04/02/17 18:29 Folic Acid (Folvite Tab) 1 mg QAM PO 03/04/17 09:00 04/03/17 08:59 03/08/17 08:23 1 MG Gabapentin (Neurontin Cap) 300 mg TID PO 03/03/17 21:00 04/02/17 20:59 03/08/17 08:22 300 MG Hyoscyamine Sulfate (Levsin Tab) 0.125 mg QID PO 03/03/17 21:00 04/02/17 20:59 03/08/17 08:23 0.125 MG Levothyroxine Sodium (Synthroid Tab) 25 mcg DAILYBB PO 03/04/17 07:00 04/03/17 06:59 03/08/17 05:39 25 MCG Thiamine HCl (Vitamin B-1 Tab) 100 mg QAM PO 03/04/17 09:00 04/03/17 08:59 03/08/17 08:23 100 MG Doxycycline Hyclate (Vibramycin Cap) 100 mg BID PO 03/03/17 21:00 03/17/17 20:59 03/08/17 08:23 100 MG Albuterol/ Ipratropium (Duoneb) 3 ml Q4R PRN INH 03/03/17 18:30 04/02/17 18:29 Acetaminophen (Tylenol Tab) 325 mg Q6H PRN PO 03/03/17 20:30 04/02/17 20:29 Oxycodone HCl (Roxicodone Immediate Rel Tab) 5 mg Q6H PRN PO 03/03/17 20:30 03/17/17 20:29 03/06/17 21:58 5 MG Hydromorphone HCl (Dilaudid Inj) 0.5 mg Q4H PRN IV 03/03/17 20:30 03/17/17 20:29 Nicotine (Nicoderm Cq 21MG Patch) 1 patch QAM TD 03/04/17 09:00 04/03/17 08:59 03/08/17 08:23 1 PATCH Miscellaneous (Remove Nicoderm Patch) 1 ea HS N/A 03/04/17 21:00 04/03/17 20:59 03/07/17 20:28 1 EA Heparin Sodium (Porcine) (Heparin Sq 5000 Unit/0.5ml) 5,000 unit Q12H SQ 03/04/17 08:00 04/03/17 07:59 Future hold 03/08/17 08:29 5,000 UNIT Albumin Human (Albumin 25%) 12.5 gm TID IV 03/08/17 09:00 03/11/17 08:59 Objective Vital Signs Date Time Temp Pulse Resp B/P (MAP) Pulse Ox O2 Delivery O2 Flow Rate FiO2 03/08/17 07:54 36.8 98 20 91/59 (70) 98 Nasal Cannula 2.0 03/08/17 04:00 Nasal Cannula 2.0 03/08/17 03:15 36.6 94 19 89/46 (60) 97 Nasal Cannula 2.0 03/08/17 00:00 Nasal Cannula 2.0 03/07/17 23:22 36.8 86 18 94/58 (70) 97 Nasal Cannula 2.0 Humidified Oxygen 03/07/17 22:50 86/55 (65) 03/07/17 20:00 Nasal Cannula 2.0 03/07/17 19:15 36.8 80 18 67/42 (50) 99 Nasal Cannula 2.0 Humidified Oxygen 03/07/17 16:00 Nasal Cannula 2.0 03/07/17 15:24 36.2 83 20 71/41 (51) 99 Nasal Cannula 2.0 03/07/17 12:00 Nasal Cannula 2.0 03/07/17 10:39 36.8 91 21 80/53 (62) Nasal Cannula 2.0 03/07/17 09:26 Nasal Cannula 2.0 Physical Exam General Appearance: no apparent distress Eyes: PERRL ENT: hearing grossly normal Neck: supple Respiratory/Chest: lungs clear, normal breath sounds Cardiovascular: regular rate, rhythm Abdomen: normal bowel sounds, soft, no organomegaly, no pulsatile mass, + tenderness (generalized tenderness) Neurologic/Psych: alert, normal mood/affect, oriented x 3 Laboratory Results Last 24 Hours Test 03/07/17 13:45 03/07/17 20:31 03/08/17 05:45 Peritoneal Fluid Color PALE YELLOW Peritoneal Fluid Appearance CLEAR Peritoneal Fluid WBC 187 /uL Peritoneal Fluid RBC < 3000 /uL Peritoneal Fld Mononuclear WBCs (%) 80.7 % Peritoneal Fld Polynuclear WBCs (%) 19.3 % Peritoneal Fluid Albumin 0.8 g/dl Sodium Level 139 mmol/L 140 mmol/L Potassium Level 3.7 mmol/L 3.7 mmol/L Chloride Level 110 mmol/L 112 mmol/L Carbon Dioxide Level 21 mmol/L 18 mmol/L Anion Gap 8.0 mmol/L 10.0 mmol/L Blood Urea Nitrogen 17 mg/dl 16 mg/dl Creatinine 1.61 mg/dl 1.50 mg/dl Est Creatinine Clear Calc Drug Dose 32.1 ml/min 33.2 ml/min Estimated GFR () 39.9 43.4 Estimated GFR (Non- 34.4 37.5 BUN/Creatinine Ratio 10.4 10.9 Random Glucose 87 mg/dl 79 mg/dl Lactic Acid Level 1.3 mmol/L Calcium Level 8.6 mg/dl 8.2 mg/dl Magnesium Level 1.7 mg/dl 2.1 mg/dl White Blood Count 8.74 K/uL Red Blood Count 2.61 M/uL Hemoglobin 8.4 g/dL Hematocrit 25.9 % Mean Corpuscular Volume 99.2 fL Mean Corpuscular Hemoglobin 32.2 pg Mean Corpuscular Hemoglobin Concent 32.4 g/dl RDW Standard Deviation 50.8 fL RDW Coefficient of Variation 14.2 % Platelet Count 205 K/uL Mean Platelet Volume 10.9 fL Assessment and Plan Patient is a 61 year old female w suspected ETOH cirrhosis, admitted for increasing abd distension and pain, recently admitted and discharged last week, on abx for SBP. Began reaccumulated abd fluid, weak, dizzy, fatigued --> ED. Hypotensive, with abd distention s/p paracentesis with 3L off. BRADLEY --> will rule out HRS. Urine NA 60, first paracentesis without evidence of SBP. Kidney function without improvement over the weekend. Had repeat paracentesis with 4L off --> cultures pending. Nephrology now following, repeating urine NA and to start albumin - Follow up cultures, will advise ABX as appropriate - if SBP albumin 1.5g/kg x 1 day then 1g/kg albumin on day 3 - Hold diuretics - baseline creat 0.8 - Follow up new urine NA studies - daily CMP - appreciate nephrology recommendation - Lactulose 15G TID as tolerated - titrate to 2-3 BMs daily - ETOH abstinence - Correction of kidney function - consider nephrology consult - Daily MELD labs - MELD 15 I saw and evaluated the patient. She has a history of alcoholic liver disease resulting in cirrhosis. It appears that her creatinine does continue to rise somewhat. Perhaps this is from prerenal azotemia. We appreciate the input from nephrology at this time. She is recently abstinent from alcohol and presently not a candidate for liver trend on evaluation.
[2017-03-08 10:52] LABS: INR 1.2 (0.9-1.1); PROTHROMBIN TIME (PATIENT) 12.9 SECONDS (9.0-12.0)
[2017-03-08 11:03] VITALS: BP 80/48; PULSE 88; TEMP 37
--- NOTE | 2017-03-08 14:13 | Progress Note ---
Medicine Progress Note Date & Time of Visit: Mar 08, 2017 at 14:13 . Subjective Ultrasound-guided paracentesis performed yesterday; has had some abdominal discomfort since the procedure, but not severe. No nausea or vomiting. Loose stools on lactulose. No fever. No chest pain. No cough or shortness of breath. No urinary symptoms. Ambulating in hallway. . Objective Last 8 Hrs Date Time Temp Pulse Resp B/P (MAP) Pulse Ox O2 Delivery O2 Flow Rate FiO2 03/08/17 12:00 Nasal Cannula 2.0 03/08/17 11:03 37.0 88 17 80/48 (59) 03/08/17 10:38 Nasal Cannula 2.0 03/08/17 08:00 Nasal Cannula 2.0 03/08/17 07:54 36.8 98 20 91/59 (70) 98 Nasal Cannula 2.0 Physical Exam: General- no distress Eyes- anicteric Lungs- diffuse mild to moderate wheezing Heart- regular Abdomen- -[id number]- moderately distended, soft, diffuse mild tenderness without rebound or guarding [corrected MELANIE 03/09/17 @ 21:23] Extremities- trace pretibial edema; no calf tenderness Neuro- alert . Laboratory Results: Last 24 Hours Test 03/07/17 20:31 03/08/17 05:45 Sodium Level 139 mmol/L 140 mmol/L Potassium Level 3.7 mmol/L 3.7 mmol/L Chloride Level 110 mmol/L 112 mmol/L Carbon Dioxide Level 21 mmol/L 18 mmol/L Anion Gap 8.0 mmol/L 10.0 mmol/L Blood Urea Nitrogen 17 mg/dl 16 mg/dl Creatinine 1.61 mg/dl 1.50 mg/dl Est Creatinine Clear Calc Drug Dose 32.1 ml/min 33.2 ml/min Estimated GFR () 39.9 43.4 Estimated GFR (Non- 34.4 37.5 BUN/Creatinine Ratio 10.4 10.9 Random Glucose 87 mg/dl 79 mg/dl Lactic Acid Level 1.3 mmol/L Calcium Level 8.6 mg/dl 8.2 mg/dl Magnesium Level 1.7 mg/dl 2.1 mg/dl White Blood Count 8.74 K/uL Red Blood Count 2.61 M/uL Hemoglobin 8.4 g/dL Hematocrit 25.9 % Mean Corpuscular Volume 99.2 fL Mean Corpuscular Hemoglobin 32.2 pg Mean Corpuscular Hemoglobin Concent 32.4 g/dl RDW Standard Deviation 50.8 fL RDW Coefficient of Variation 14.2 % Platelet Count 205 K/uL Mean Platelet Volume 10.9 fL Prothrombin Time 12.9 SECONDS Prothromb Time International Ratio 1.2 Assessment & Plan HYPOTENSION Blood pressure still relatively low. No apparent infection at this time. Diuretics on hold. Follow. HEPATIC ENCEPHALOPATHY No apparent infection or GI bleeding at this time. Improved with lactulose. CIRRHOSIS / ASCITES History of hepatitis C and heavy alcohol consumption. Cirrhosis complicated by portal hypertension, ascites, encephalopathy. GI consulted. RECENT SPONTANEOUS BACTERIAL PERITONITIS Culture of peritoneal fluid from 02/14/17 grew MRSA. Treated with IV vancomycin followed by oral doxycycline. Blood cultures and peritoneal fluid cultures this admission negative thus far. Afebrile. Continue doxycycline to complete course of therapy. ACUTE KIDNEY INJURY Serum creatinine today remains elevated at 1.5, compared recent baseline of 1.0. Acute kidney injury could be secondary to volume depletion from diuretics, SBP, hepatorenal syndrome. Nephrology consulted. Diuretics being held. Receiving albumin for volume expansion. COPD Pulmonary symptoms stable. Check 2-step pulse oximetry prior to discharge. ALCOHOL CONSUMPTION No signs/symptoms of alcohol withdrawal. Continue thiamine and gabapentin. VTE PROPHYLAXIS Subcutaneous heparin. Ambulate. DISPOSITION Expected discharge to home. Family Medicine follow-up with Dr. Khanna. GI follow-up with [facility]. . Current Inpatient Medications: Current Inpatient Medications Medications (Trade) Dose Ordered Sig/Shelby Route Start Time Stop Time Status Last Admin Dose Admin Ondansetron HCl (Zofran Inj) 4 mg Q6H PRN IV 03/03/17 17:15 04/02/17 17:14 03/08/17 09:07 4 MG Lactulose (Chronulac Syrup) 15 gm TID PO 03/03/17 21:00 04/02/17 20:59 03/08/17 08:22 15 GM Albuterol (Ventolin Hfa Inhaler) 2 puffs Q4 PRN INH 03/03/17 18:30 04/02/17 18:29 Folic Acid (Folvite Tab) 1 mg QAM PO 03/04/17 09:00 04/03/17 08:59 03/08/17 08:23 1 MG Gabapentin (Neurontin Cap) 300 mg TID PO 03/03/17 21:00 04/02/17 20:59 03/08/17 08:22 300 MG Hyoscyamine Sulfate (Levsin Tab) 0.125 mg QID PO 03/03/17 21:00 04/02/17 20:59 03/08/17 08:23 0.125 MG Levothyroxine Sodium (Synthroid Tab) 25 mcg DAILYBB PO 03/04/17 07:00 04/03/17 06:59 03/08/17 05:39 25 MCG Thiamine HCl (Vitamin B-1 Tab) 100 mg QAM PO 03/04/17 09:00 04/03/17 08:59 03/08/17 08:23 100 MG Doxycycline Hyclate (Vibramycin Cap) 100 mg BID PO 03/03/17 21:00 03/17/17 20:59 03/08/17 08:23 100 MG Albuterol/ Ipratropium (Duoneb) 3 ml Q4R PRN INH 03/03/17 18:30 04/02/17 18:29 Acetaminophen (Tylenol Tab) 325 mg Q6H PRN PO 03/03/17 20:30 04/02/17 20:29 Oxycodone HCl (Roxicodone Immediate Rel Tab) 5 mg Q6H PRN PO 03/03/17 20:30 03/17/17 20:29 03/06/17 21:58 5 MG Hydromorphone HCl (Dilaudid Inj) 0.5 mg Q4H PRN IV 03/03/17 20:30 03/17/17 20:29 Nicotine (Nicoderm Cq 21MG Patch) 1 patch QAM TD 03/04/17 09:00 04/03/17 08:59 03/08/17 08:23 1 PATCH Miscellaneous (Remove Nicoderm Patch) 1 ea HS N/A 03/04/17 21:00 04/03/17 20:59 03/07/17 20:28 1 EA Heparin Sodium (Porcine) (Heparin Sq 5000 Unit/0.5ml) 5,000 unit Q12H SQ 03/04/17 08:00 04/03/17 07:59 Future hold 03/08/17 08:29 5,000 UNIT Albumin Human (Albumin 25%) 12.5 gm TID IV 03/08/17 09:00 03/11/17 08:59 03/08/17 09:09 12.5 GM
[2017-03-08 15:16] VITALS: BP 88/53; PULSE 81; TEMP 36.8; O2SAT 99
[2017-03-08 19:16] VITALS: BP 87/37; PULSE 86; TEMP 36.9; O2SAT 90
[2017-03-09] VITALS (10 sets, daily range): BP systolic 62–102; BP diastolic 42–60; PULSE 72–88; TEMP 36.4–37.1; O2SAT 92–100
[2017-03-09] MEDS: LEVOTHYROXINE 25 MCG TAB PO SCH (06:03)
[2017-03-09 06:36] LABS: HEMATOCRIT 26.2 % (37-47); MEAN CELL VOLUME 98.9 fL (80-100); MEAN CORPUSCULAR HEMOGLOBIN 31.7 pg (25-34); MEAN CORPUSCULAR HGB CONC 32.1 g/dl (32-36); MEAN PLATELET VOLUME 10.3 fL (7.4-10.4); PLATELET COUNT 193 K/uL (130-400); RED BLOOD COUNT 2.65 M/uL (4.2-5.4); WHITE BLOOD COUNT 9.27 K/uL (4.8-10.8)
[2017-03-09 07:09] LABS: BUN/CREATININE RATIO 14.6 (10-20); CALCIUM 8.5 mg/dl (8.5-10.1); CREATININE 1.34 mg/dl (0.60-1.20); POTASSIUM 3.4 mmol/L (3.5-5.1)
[2017-03-09] MEDS: HEPARIN SOD 5000 UNIT/0.5 ML CARP SQ SCH ×2 (08:10→20:00)
[2017-03-09] MEDS: HYOSCYAMINE SULFATE 0.125 MG SL TAB PO SCH ×4 (08:13→19:58)
[2017-03-09] MEDS: GABAPENTIN 300 MG CAP PO SCH ×3 (08:14→21:33)
[2017-03-09] MEDS: DOXYCYCLINE HYCLATE 100 MG CAP PO SCH ×2 (08:14→21:33)
[2017-03-09] MEDS: THIAMINE HCL 100 MG TAB PO SCH (08:15)
[2017-03-09] MEDS: NICOTINE 21 MG/24 HR TDSY TD SCH (08:16)
[2017-03-09] MEDS: LACTULOSE SYRUP 10 GM/15 ML BTL 473 ML PO SCH ×3 (08:18→19:13)
[2017-03-09] MEDS: ALBUMIN HUMAN 25% 12.5 GM/50 ML VIAL IV SCH ×3 (08:32→21:35)
--- NOTE | 2017-03-09 09:33 | Gastroenterology Progress Note ---
Progress Note Date of Service: Mar 09, 2017 Subjective Pt evaluation today including: conversation w/ patient, physical exam, chart review, lab review Pt seen and evaluated, chart reviewed. Pt with 6+ stools last night, 4+ this morning. Lactulose was held last night, instructed to hold this AM as well. Will need to see how stools do without AM lactulose, she has been on ABX for SBP during last admission. No black/bloody stools. Stools or brown/green. Mild abd pain. No evidence of SBP, culture still pending. Was seen by Dr. Blandon yesterday, who added albumin TID, some improvement in kidney function this AM on labs. Pt was tearful on exam this AM - tells me she is fearful of her liver disease and does not want to miss out on her grandchildren growing up. She tells me she has no intention of drinking ETOH anymore. Her last drink was either February 13 or February 18. No fever, chills, CP, SOB. Review of Systems Constitutional: No fever, No chills Respiratory: No cough Cardiac: No chest pain Abdomen: + pain, + diarrhea, No nausea, No vomiting, No constipation, No GI bleeding Medications Current Inpatient Medications Medications (Trade) Dose Ordered Sig/Shelby Route Start Time Stop Time Status Last Admin Dose Admin Ondansetron HCl (Zofran Inj) 4 mg Q6H PRN IV 03/03/17 17:15 04/02/17 17:14 03/08/17 09:07 4 MG Lactulose (Chronulac Syrup) 15 gm TID PO 03/03/17 21:00 04/02/17 20:59 03/08/17 14:29 15 GM Albuterol (Ventolin Hfa Inhaler) 2 puffs Q4 PRN INH 03/03/17 18:30 04/02/17 18:29 Folic Acid (Folvite Tab) 1 mg QAM PO 03/04/17 09:00 04/03/17 08:59 03/09/17 08:11 1 MG Gabapentin (Neurontin Cap) 300 mg TID PO 03/03/17 21:00 04/02/17 20:59 03/09/17 08:14 300 MG Hyoscyamine Sulfate (Levsin Tab) 0.125 mg QID PO 03/03/17 21:00 04/02/17 20:59 03/09/17 08:13 0.125 MG Levothyroxine Sodium (Synthroid Tab) 25 mcg DAILYBB PO 03/04/17 07:00 04/03/17 06:59 03/09/17 06:03 25 MCG Thiamine HCl (Vitamin B-1 Tab) 100 mg QAM PO 03/04/17 09:00 04/03/17 08:59 03/09/17 08:15 100 MG Doxycycline Hyclate (Vibramycin Cap) 100 mg BID PO 03/03/17 21:00 03/17/17 20:59 03/09/17 08:14 100 MG Albuterol/ Ipratropium (Duoneb) 3 ml Q4R PRN INH 03/03/17 18:30 04/02/17 18:29 Acetaminophen (Tylenol Tab) 325 mg Q6H PRN PO 03/03/17 20:30 04/02/17 20:29 Oxycodone HCl (Roxicodone Immediate Rel Tab) 5 mg Q6H PRN PO 03/03/17 20:30 03/17/17 20:29 03/06/17 21:58 5 MG Hydromorphone HCl (Dilaudid Inj) 0.5 mg Q4H PRN IV 03/03/17 20:30 03/17/17 20:29 Nicotine (Nicoderm Cq 21MG Patch) 1 patch QAM TD 03/04/17 09:00 04/03/17 08:59 03/09/17 08:16 1 PATCH Miscellaneous (Remove Nicoderm Patch) 1 ea HS N/A 03/04/17 21:00 04/03/17 20:59 03/08/17 19:56 1 EA Heparin Sodium (Porcine) (Heparin Sq 5000 Unit/0.5ml) 5,000 unit Q12H SQ 03/04/17 08:00 04/03/17 07:59 Future hold 03/09/17 08:10 5,000 UNIT Albumin Human (Albumin 25%) 12.5 gm TID IV 03/08/17 09:00 03/11/17 08:59 03/09/17 08:32 12.5 GM Objective Vital Signs Date Time Temp Pulse Resp B/P (MAP) Pulse Ox O2 Delivery O2 Flow Rate FiO2 03/09/17 08:57 Nasal Cannula 2.0 10/25/17 07:29 37.1 76 15 62/42 (49) 97 Room Air 2.0 03/09/17 05:07 36.5 75 16 85/49 (61) 97 2.0 03/09/17 04:00 Nasal Cannula 2.0 03/09/17 00:08 36.9 85 18 94/58 (70) 98 2.0 03/09/17 00:00 Nasal Cannula 2.0 03/08/17 20:00 Nasal Cannula 2.0 03/08/17 19:16 36.9 86 20 87/37 (54) 90 Nasal Cannula 2.0 Humidified Oxygen 03/08/17 16:00 Nasal Cannula 2.0 03/08/17 15:16 36.8 81 20 88/53 (65) 99 Nasal Cannula 2.0 Humidified Oxygen 03/08/17 12:00 Nasal Cannula 2.0 03/08/17 11:03 37.0 88 17 80/48 (59) 03/08/17 10:38 Nasal Cannula 2.0 Physical Exam General Appearance: no apparent distress, + pertinent finding (patient is tearful) Eyes: PERRL ENT: hearing grossly normal Neck: supple Respiratory/Chest: lungs clear, normal breath sounds Cardiovascular: regular rate, rhythm Abdomen: normal bowel sounds, non tender, soft, + pertinent finding ( improvement of abd distention) Neurologic/Psych: alert, normal mood/affect, oriented x 3 Skin: normal color, warm/dry Laboratory Results Last 24 Hours Test 03/09/17 06:16 White Blood Count 9.27 K/uL Red Blood Count 2.65 M/uL Hemoglobin 8.4 g/dL Hematocrit 26.2 % Mean Corpuscular Volume 98.9 fL Mean Corpuscular Hemoglobin 31.7 pg Mean Corpuscular Hemoglobin Concent 32.1 g/dl RDW Standard Deviation 50.7 fL RDW Coefficient of Variation 14.3 % Platelet Count 193 K/uL Mean Platelet Volume 10.3 fL Sodium Level 139 mmol/L Potassium Level 3.4 mmol/L Chloride Level 112 mmol/L Carbon Dioxide Level 19 mmol/L Anion Gap 8.0 mmol/L Blood Urea Nitrogen 20 mg/dl Creatinine 1.34 mg/dl Est Creatinine Clear Calc Drug Dose 37.2 ml/min Estimated GFR () 49.8 Estimated GFR (Non- 43.0 BUN/Creatinine Ratio 14.6 Random Glucose 83 mg/dl Calcium Level 8.5 mg/dl Total Bilirubin 0.7 mg/dl Aspartate Amino Transf (AST/SGOT) 53 U/L Alanine Aminotransferase (ALT/SGPT) 21 U/L Alkaline Phosphatase 82 U/L Total Protein 5.9 gm/dl Albumin 2.9 gm/dl Globulin 3.0 gm/dl Albumin/Globulin Ratio 1.0 Assessment and Plan Patient is a 61 year old female w suspected ETOH cirrhosis MELD 15, admitted for increasing abd distension and pain, recently admitted and discharged last week, on abx for SBP. Began reaccumulated abd fluid, weak, dizzy, fatigued --> ED. Hypotensive, with abd distention s/p paracentesis with 3L off. BRADLEY --> will rule out HRS. Urine NA 60, first paracentesis without evidence of SBP. Kidney function without improvement over the weekend. Had repeat paracentesis with 4L off --> cultures pending. Nephrology now following, repeating urine NA and to start albumin. Mild improvement of kidney function overnight. - Follow up cultures, will advise ABX as appropriate - Complete Doxycycline started at time of last admission - if SBP albumin 1.5g/kg x 1 day then 1g/kg albumin on day 3 - Kidney function - Hold diuretics - baseline creat 0.8 - continue IV albumin TID - appreciate nephrology recommendation and restarting diuretics - daily CMP - Lactulose 15G TID as tolerated - OK to titrate to 2-3 BMs daily - ETOH abstinence GI to sign off. Please call with any questions or concerns. I saw and evaluated the patient. She appears to be improving from our perspective. We appreciate the nephrology input. She should follow with our office in 2-4 weeks at which time we can determine if diuretics can be restarted. She should continue with attempts at abstinence and should consider an outpatient treatment program in case liver transplantation becomes needed in the future.
--- NOTE | 2017-03-09 09:50 | Nephrology Progress Note ---
Nephrology Progress Note Date of Service: Mar 09, 2017. Subjective states she had one time R abd cramp/brief pain this am but else none. +BM ; no n/v, no dypsnea, denies reaccumulation of fluid Objective Date Time Temp Pulse Resp B/P (MAP) Pulse Ox O2 Delivery O2 Flow Rate FiO2 03/09/17 08:57 Nasal Cannula 2.0 03/09/17 07:29 37.1 76 15 62/42 (49) 97 Room Air 2.0 03/09/17 05:07 36.5 75 16 85/49 (61) 97 2.0 03/09/17 04:00 Nasal Cannula 2.0 03/09/17 00:08 36.9 85 18 94/58 (70) 98 2.0 03/09/17 00:00 Nasal Cannula 2.0 03/08/17 20:00 Nasal Cannula 2.0 03/08/17 19:16 36.9 86 20 87/37 (54) 90 Nasal Cannula 2.0 Humidified Oxygen 03/08/17 16:00 Nasal Cannula 2.0 03/08/17 15:16 36.8 81 20 88/53 (65) 99 Nasal Cannula 2.0 Humidified Oxygen 03/08/17 12:00 Nasal Cannula 2.0 03/08/17 11:03 37.0 88 17 80/48 (59) 03/08/17 10:38 Nasal Cannula 2.0 Physical Exam: GENERAL: Awake, alert, oriented x3. on 2L NC EYES: No scleral icterus. ENT: Moist mucous membranes. NECK: Supple. PULMONARY: Clear to auscultation w/ diminished air entry throughout. CARDIAC: Regular rate and rhythm. ABDOMEN: Soft. Mild distention, + fluid wave; +BS, no calero. EXTREMITIES: No clubbing, cyanosis or edema. NEUROLOGICALLY: silveira, fluent speech. DERM: No rash or ulcers noted. Current Inpatient Medications Medications (Trade) Dose Ordered Sig/Shelby Route Start Time Stop Time Status Last Admin Dose Admin Ondansetron HCl (Zofran Inj) 4 mg Q6H PRN IV 03/03/17 17:15 04/02/17 17:14 03/08/17 09:07 4 MG Lactulose (Chronulac Syrup) 15 gm TID PO 03/03/17 21:00 04/02/17 20:59 03/08/17 14:29 15 GM Albuterol (Ventolin Hfa Inhaler) 2 puffs Q4 PRN INH 03/03/17 18:30 04/02/17 18:29 Folic Acid (Folvite Tab) 1 mg QAM PO 03/04/17 09:00 04/03/17 08:59 03/09/17 08:11 1 MG Gabapentin (Neurontin Cap) 300 mg TID PO 03/03/17 21:00 04/02/17 20:59 03/09/17 08:14 300 MG Hyoscyamine Sulfate (Levsin Tab) 0.125 mg QID PO 03/03/17 21:00 04/02/17 20:59 03/09/17 08:13 0.125 MG Levothyroxine Sodium (Synthroid Tab) 25 mcg DAILYBB PO 03/04/17 07:00 04/03/17 06:59 03/09/17 06:03 25 MCG Thiamine HCl (Vitamin B-1 Tab) 100 mg QAM PO 03/04/17 09:00 04/03/17 08:59 03/09/17 08:15 100 MG Doxycycline Hyclate (Vibramycin Cap) 100 mg BID PO 03/03/17 21:00 03/17/17 20:59 03/09/17 08:14 100 MG Albuterol/ Ipratropium (Duoneb) 3 ml Q4R PRN INH 03/03/17 18:30 04/02/17 18:29 Acetaminophen (Tylenol Tab) 325 mg Q6H PRN PO 03/03/17 20:30 04/02/17 20:29 Oxycodone HCl (Roxicodone Immediate Rel Tab) 5 mg Q6H PRN PO 03/03/17 20:30 03/17/17 20:29 03/06/17 21:58 5 MG Hydromorphone HCl (Dilaudid Inj) 0.5 mg Q4H PRN IV 03/03/17 20:30 03/17/17 20:29 Nicotine (Nicoderm Cq 21MG Patch) 1 patch QAM TD 03/04/17 09:00 04/03/17 08:59 03/09/17 08:16 1 PATCH Miscellaneous (Remove Nicoderm Patch) 1 ea HS N/A 03/04/17 21:00 04/03/17 20:59 03/08/17 19:56 1 EA Heparin Sodium (Porcine) (Heparin Sq 5000 Unit/0.5ml) 5,000 unit Q12H SQ 03/04/17 08:00 04/03/17 07:59 Future hold 03/09/17 08:10 5,000 UNIT Albumin Human (Albumin 25%) 12.5 gm TID IV 03/08/17 09:00 03/11/17 08:59 03/09/17 08:32 12.5 GM Last 24 Hours Test 03/09/17 06:16 White Blood Count 9.27 K/uL Red Blood Count 2.65 M/uL Hemoglobin 8.4 g/dL Hematocrit 26.2 % Mean Corpuscular Volume 98.9 fL Mean Corpuscular Hemoglobin 31.7 pg Mean Corpuscular Hemoglobin Concent 32.1 g/dl RDW Standard Deviation 50.7 fL RDW Coefficient of Variation 14.3 % Platelet Count 193 K/uL Mean Platelet Volume 10.3 fL Sodium Level 139 mmol/L Potassium Level 3.4 mmol/L Chloride Level 112 mmol/L Carbon Dioxide Level 19 mmol/L Anion Gap 8.0 mmol/L Blood Urea Nitrogen 20 mg/dl Creatinine 1.34 mg/dl Est Creatinine Clear Calc Drug Dose 37.2 ml/min Estimated GFR () 49.8 Estimated GFR (Non- 43.0 BUN/Creatinine Ratio 14.6 Random Glucose 83 mg/dl Calcium Level 8.5 mg/dl Total Bilirubin 0.7 mg/dl Aspartate Amino Transf (AST/SGOT) 53 U/L Alanine Aminotransferase (ALT/SGPT) 21 U/L Alkaline Phosphatase 82 U/L Total Protein 5.9 gm/dl Albumin 2.9 gm/dl Globulin 3.0 gm/dl Albumin/Globulin Ratio 1.0 Assessment & Plan 61 y/o F w/ chronic HB/CV, EtOH and tobacco abuse, COPD, recent admission for S aureus peritonitis > bacteremia readmitted w/ weakness, lightheadedness, N/V, confusion and found to have creatinine 1.6 on presentation 03/03; had been 1.0 at recent 02/22 d/c, w/ baseline 0.8-0.9 same timeframe. Multifactorial ATN with creatinine of 1.5 with a baseline in early February of 0.8. Was rx'd bactrim prior to admission (started 03/01 by pcp for bacteremia; had been d/c from hospital on doxycycline; need to verify if pt was taking bactrim or not); creatinine on 02/25 was already on upward trend at 1.3 as outpt -intravascular volume depletion in state of chronic total body overload, slow improvement -cont albumin current frequency/dose -daily bmp, cbc -await repeat urine studies -all cxs to date remain negative Hypotension, w/ SBP 60-90s this admission and slowly progressive past months -no outpt BP on file in [facility] since october >> 88/50; prior to that in 2016 through September SBP is 100-130. -SBP during admission early February 60-80s systolic, similar to current; may well reflect progression of ESLD -note that she was also admitted here in 10/2016 w/ c/o hypotension and sbp were higher 80s minimum at that time -no TTE on file for this pt as inpt or outpt and could consider this in smoker w / hyperlipidemia (LDL 182 06/2016) and multiple chronic illnesses now w/ refractory hypotension -check orthostatics -if above are satisfactory, consider low dose midodrine -d/t volume issues continue low Na diet; did not order fluid limit at this time d/t lower bp -cont albumin as above Hyperchloremic metabolic acidosis Likely from 8BM past 3 days -ordered sodium bicarb po -avoid NS or chloride rich solutions -daily bmp -per GI/primary service to titrate lactulose dosing Care coordinated w/ Dr. Sotelo. Appreciate consult; will follow with you. Unclear how accurate I's and O's are, however, appears to be dropping since admission. The patient's volume status though is much improved with the 2 paracenteses with appropriate albumin resuscitation. I do not feel this is hepatorenal given the fact that his urine sodium is greater than 10; however, the patient still could have an element of intravascular volume depletion. With her lungs are clear and abdomen soft and volume status much improved, we would like to give albumin resuscitation for 24 hours to see if we can improve the patient's kidney function; however, the patient likely to require diuretics to help control the recurrent ascites and may need to settle for a higher creatinine. This may unfortunately be patient's new baseline; however, we will attempt more aggressive albumin resuscitation to see if we can o
[2017-03-09] MEDS: SODIUM BICARBONATE 650 MG TAB PO SCH ×2 (13:45→19:58)
--- NOTE | 2017-03-09 20:52 | Progress Note ---
Medicine Progress Note Date & Time of Visit: Mar 09, 2017 at 19:15 . Subjective No fever. Less abdominal discomfort. No nausea or vomiting. Several loose BMs (on lactulose). No chest pain. No cough or shortness of breath. No dysuria. Ambulating without lightheadedness or other difficulties. . Objective Last 8 Hrs Date Time Temp Pulse Resp B/P (MAP) Pulse Ox O2 Delivery O2 Flow Rate FiO2 03/09/17 20:00 Room Air 03/09/17 19:51 36.9 83 19 92/60 (71) 95 Nasal Cannula 3.0 Humidified Oxygen 03/09/17 16:00 Room Air 03/09/17 15:38 36.8 80 18 102/46 (64) 92 Nasal Cannula 2.0 Humidified Oxygen Physical Exam: General- no distress Eyes- anicteric Lungs- diffuse mild wheezing Heart- regular Abdomen- moderately distended, soft, nontender Extremities- trace pretibial edema; no calf tenderness Neuro- alert . Laboratory Results: Last 24 Hours Test 03/09/17 06:16 White Blood Count 9.27 K/uL Red Blood Count 2.65 M/uL Hemoglobin 8.4 g/dL Hematocrit 26.2 % Mean Corpuscular Volume 98.9 fL Mean Corpuscular Hemoglobin 31.7 pg Mean Corpuscular Hemoglobin Concent 32.1 g/dl RDW Standard Deviation 50.7 fL RDW Coefficient of Variation 14.3 % Platelet Count 193 K/uL Mean Platelet Volume 10.3 fL Sodium Level 139 mmol/L Potassium Level 3.4 mmol/L Chloride Level 112 mmol/L Carbon Dioxide Level 19 mmol/L Anion Gap 8.0 mmol/L Blood Urea Nitrogen 20 mg/dl Creatinine 1.34 mg/dl Est Creatinine Clear Calc Drug Dose 37.2 ml/min Estimated GFR () 49.8 Estimated GFR (Non- 43.0 BUN/Creatinine Ratio 14.6 Random Glucose 83 mg/dl Calcium Level 8.5 mg/dl Total Bilirubin 0.7 mg/dl Aspartate Amino Transf (AST/SGOT) 53 U/L Alanine Aminotransferase (ALT/SGPT) 21 U/L Alkaline Phosphatase 82 U/L Total Protein 5.9 gm/dl Albumin 2.9 gm/dl Globulin 3.0 gm/dl Albumin/Globulin Ratio 1.0 Assessment & Plan HYPOTENSION Blood pressure 86/49 at time of admission; BP's still relatively low. No apparent infection at this time. Diuretics held. Blood pressures seem to be improving with albumin infusions. Patient indicates that her normal systolic blood pressures running in the 90s. Asymptomatic. No further evaluation or treatment at this time. Follow. HEPATIC ENCEPHALOPATHY No apparent infection or GI bleeding at this time. Improved with lactulose. Having multiple loose BMs. Change lactulose to BID. CIRRHOSIS / ASCITES History of hepatitis C and heavy alcohol consumption. Cirrhosis complicated by portal hypertension, ascites, encephalopathy. GI consulted. RECENT SPONTANEOUS BACTERIAL PERITONITIS Culture of peritoneal fluid from 02/14/17 grew MRSA. Treated with IV vancomycin followed by oral doxycycline. Blood cultures and peritoneal fluid cultures this admission negative thus far. Afebrile. Continue doxycycline to complete course of therapy. ACUTE KIDNEY INJURY Serum creatinine at time of admission 1.56, compared recent baseline of 0.8 - 1.0. Acute kidney injury could be secondary to volume depletion from diuretics, SBP, hepatorenal syndrome. Nephrology consulted. Diuretics being held. Receiving albumin for volume expansion. Serum creatinine today = 1.34. Follow. COPD Pulmonary symptoms stable. Check 2-step pulse oximetry prior to discharge. ALCOHOL CONSUMPTION No signs/symptoms of alcohol withdrawal. Continue thiamine and gabapentin. VTE PROPHYLAXIS Subcutaneous heparin. Ambulate. DISPOSITION Expected discharge to home. Family Medicine follow-up with Dr. Khanna. GI follow-up with [facility]. . Current Inpatient Medications: Current Inpatient Medications Medications (Trade) Dose Ordered Sig/Shelby Route Start Time Stop Time Status Last Admin Dose Admin Ondansetron HCl (Zofran Inj) 4 mg Q6H PRN IV 03/03/17 17:15 04/02/17 17:14 03/08/17 09:07 4 MG Lactulose (Chronulac Syrup) 15 gm TID PO 03/03/17 21:00 04/02/17 20:59 03/08/17 14:29 15 GM Albuterol (Ventolin Hfa Inhaler) 2 puffs Q4 PRN INH 03/03/17 18:30 04/02/17 18:29 Folic Acid (Folvite Tab) 1 mg QAM PO 03/04/17 09:00 04/03/17 08:59 03/09/17 08:11 1 MG Gabapentin (Neurontin Cap) 300 mg TID PO 03/03/17 21:00 04/02/17 20:59 03/09/17 13:46 300 MG Hyoscyamine Sulfate (Levsin Tab) 0.125 mg QID PO 03/03/17 21:00 04/02/17 20:59 03/09/17 18:22 0.125 MG Levothyroxine Sodium (Synthroid Tab) 25 mcg DAILYBB PO 03/04/17 07:00 04/03/17 06:59 03/09/17 06:03 25 MCG Thiamine HCl (Vitamin B-1 Tab) 100 mg QAM PO 03/04/17 09:00 04/03/17 08:59 03/09/17 08:15 100 MG Doxycycline Hyclate (Vibramycin Cap) 100 mg BID PO 03/03/17 21:00 03/17/17 20:59 03/09/17 08:14 100 MG Albuterol/ Ipratropium (Duoneb) 3 ml Q4R PRN INH 03/03/17 18:30 04/02/17 18:29 Acetaminophen (Tylenol Tab) 325 mg Q6H PRN PO 03/03/17 20:30 04/02/17 20:29 Oxycodone HCl (Roxicodone Immediate Rel Tab) 5 mg Q6H PRN PO 03/03/17 20:30 03/17/17 20:29 03/06/17 21:58 5 MG Hydromorphone HCl (Dilaudid Inj) 0.5 mg Q4H PRN IV 03/03/17 20:30 03/17/17 20:29 Nicotine (Nicoderm Cq 21MG Patch) 1 patch QAM TD 03/04/17 09:00 04/03/17 08:59 03/09/17 08:16 1 PATCH Miscellaneous (Remove Nicoderm Patch) 1 ea HS N/A 03/04/17 21:00 04/03/17 20:59 03/08/17 19:56 1 EA Heparin Sodium (Porcine) (Heparin Sq 5000 Unit/0.5ml) 5,000 unit Q12H SQ 03/04/17 08:00 04/03/17 07:59 Future hold 03/09/17 08:10 5,000 UNIT Albumin Human (Albumin 25%) 12.5 gm TID IV 03/08/17 09:00 03/11/17 08:59 03/09/17 13:46 12.5 GM Sodium Bicarbonate (Sodium Bicarbonate Tab) 650 mg TID PO 03/09/17 14:00 04/08/17 13:59 03/09/17 13:45 650 MG
[2017-03-10 05:30] VITALS: BP 92/57; PULSE 84; TEMP 37.2; O2SAT 93
[2017-03-10] MEDS: LEVOTHYROXINE 25 MCG TAB PO SCH (06:00)
[2017-03-10 07:49] LABS: HEMATOCRIT 27.5 % (37-47); MEAN CELL VOLUME 98.6 fL (80-100); MEAN CORPUSCULAR HEMOGLOBIN 31.9 pg (25-34); MEAN CORPUSCULAR HGB CONC 32.4 g/dl (32-36); PLATELET COUNT 202 K/uL (130-400); RED BLOOD COUNT 2.79 M/uL (4.2-5.4); WHITE BLOOD COUNT 9.67 K/uL (4.8-10.8)
[2017-03-10 08:18] LABS: CALCIUM 8.6 mg/dl (8.5-10.1); CREATININE 1.29 mg/dl (0.60-1.20); POTASSIUM 3.5 mmol/L (3.5-5.1)
[2017-03-10] MEDS: HEPARIN SOD 5000 UNIT/0.5 ML CARP SQ SCH ×2 (08:19→19:59)
[2017-03-10] MEDS: ALBUMIN HUMAN 25% 12.5 GM/50 ML VIAL IV SCH ×3 (08:20→21:51)
[2017-03-10] MEDS: LACTULOSE SYRUP 10 GM/15 ML BTL 473 ML PO SCH ×2 (08:22→14:28)
[2017-03-10] MEDS: GABAPENTIN 300 MG CAP PO SCH ×3 (08:25→21:52)
[2017-03-10] MEDS: HYOSCYAMINE SULFATE 0.125 MG SL TAB PO SCH ×4 (08:25→21:52)
[2017-03-10] MEDS: SODIUM BICARBONATE 650 MG TAB PO SCH ×3 (08:26→21:53)
[2017-03-10] MEDS: DOXYCYCLINE HYCLATE 100 MG CAP PO SCH ×2 (08:26→21:52)
[2017-03-10] MEDS: NICOTINE 21 MG/24 HR TDSY TD SCH (08:28)
[2017-03-10 09:08] VITALS: BP 86/55; PULSE 85; TEMP 36.7; O2SAT 96
--- NOTE | 2017-03-10 10:15 | Nephrology Progress Note ---
Nephrology Progress Note Date of Service: Mar 10, 2017. Subjective no c/o; + ambulation. +BM ; no n/v, no dypsnea, denies reaccumulation of fluid, N/v Objective Date Time Temp Pulse Resp B/P (MAP) Pulse Ox O2 Delivery O2 Flow Rate FiO2 03/10/17 09:08 36.7 85 24 86/55 (65) 96 03/10/17 08:30 Room Air 03/10/17 08:00 Room Air 03/10/17 05:30 37.2 84 20 92/57 (69) 93 Room Air 03/10/17 04:00 Room Air 03/10/17 00:01 Room Air 03/09/17 23:44 36.6 88 20 94/58 (70) 95 03/09/17 20:00 Room Air 03/09/17 19:51 36.9 83 19 92/60 (71) 95 Nasal Cannula 3.0 Humidified Oxygen 03/09/17 16:00 Room Air 03/09/17 15:38 36.8 80 18 102/46 (64) 92 Nasal Cannula 2.0 Humidified Oxygen 03/09/17 12:00 Room Air 03/09/17 11:21 78/57 (64) 03/09/17 11:20 80/45 (57) 03/09/17 11:19 03/09/17 11:08 100 03/09/17 11:04 36.4 80 18 83/56 (65) 100 Nasal Cannula 2.0 Physical Exam: GENERAL: Awake, alert, oriented x3. on RA EYES: No scleral icterus. ENT: Moist mucous membranes. NECK: Supple. PULMONARY: Clear to auscultation w/ diminished air entry throughout. CARDIAC: Regular rate and rhythm. ABDOMEN: Soft. today more distention, + fluid wave; +BS, no calero. some marked RUQ TTP. EXTREMITIES: No clubbing, cyanosis or edema. NEUROLOGICALLY: silveira, fluent speech. DERM: No rash or ulcers noted. Current Inpatient Medications Medications (Trade) Dose Ordered Sig/Shelby Route Start Time Stop Time Status Last Admin Dose Admin Ondansetron HCl (Zofran Inj) 4 mg Q6H PRN IV 03/03/17 17:15 04/02/17 17:14 03/08/17 09:07 4 MG Lactulose (Chronulac Syrup) 15 gm TID PO 03/03/17 21:00 04/02/17 20:59 03/10/17 08:22 15 GM Albuterol (Ventolin Hfa Inhaler) 2 puffs Q4 PRN INH 03/03/17 18:30 04/02/17 18:29 Folic Acid (Folvite Tab) 1 mg QAM PO 03/04/17 09:00 04/03/17 08:59 03/10/17 08:23 1 MG Gabapentin (Neurontin Cap) 300 mg TID PO 03/03/17 21:00 04/02/17 20:59 03/10/17 08:25 300 MG Hyoscyamine Sulfate (Levsin Tab) 0.125 mg QID PO 03/03/17 21:00 04/02/17 20:59 03/10/17 08:25 0.125 MG Levothyroxine Sodium (Synthroid Tab) 25 mcg DAILYBB PO 03/04/17 07:00 04/03/17 06:59 03/10/17 06:00 25 MCG Thiamine HCl (Vitamin B-1 Tab) 100 mg QAM PO 03/04/17 09:00 04/03/17 08:59 03/09/17 08:15 100 MG Doxycycline Hyclate (Vibramycin Cap) 100 mg BID PO 03/03/17 21:00 03/17/17 20:59 03/10/17 08:26 100 MG Albuterol/ Ipratropium (Duoneb) 3 ml Q4R PRN INH 03/03/17 18:30 04/02/17 18:29 Acetaminophen (Tylenol Tab) 325 mg Q6H PRN PO 03/03/17 20:30 04/02/17 20:29 Oxycodone HCl (Roxicodone Immediate Rel Tab) 5 mg Q6H PRN PO 03/03/17 20:30 03/17/17 20:29 03/06/17 21:58 5 MG Hydromorphone HCl (Dilaudid Inj) 0.5 mg Q4H PRN IV 03/03/17 20:30 03/17/17 20:29 Nicotine (Nicoderm Cq 21MG Patch) 1 patch QAM TD 03/04/17 09:00 04/03/17 08:59 03/10/17 08:28 1 PATCH Miscellaneous (Remove Nicoderm Patch) 1 ea HS N/A 03/04/17 21:00 04/03/17 20:59 03/09/17 21:00 1 EA Heparin Sodium (Porcine) (Heparin Sq 5000 Unit/0.5ml) 5,000 unit Q12H SQ 03/04/17 08:00 04/03/17 07:59 Future hold 03/10/17 08:19 5,000 UNIT Albumin Human (Albumin 25%) 12.5 gm TID IV 03/08/17 09:00 03/11/17 08:59 03/10/17 08:20 12.5 GM Sodium Bicarbonate (Sodium Bicarbonate Tab) 650 mg TID PO 03/09/17 14:00 04/08/17 13:59 03/10/17 08:26 650 MG Last 24 Hours Test 03/10/17 07:11 White Blood Count 9.67 K/uL Red Blood Count 2.79 M/uL Hemoglobin 8.9 g/dL Hematocrit 27.5 % Mean Corpuscular Volume 98.6 fL Mean Corpuscular Hemoglobin 31.9 pg Mean Corpuscular Hemoglobin Concent 32.4 g/dl RDW Standard Deviation 50.5 fL RDW Coefficient of Variation 14.1 % Platelet Count 202 K/uL Mean Platelet Volume 11.0 fL Sodium Level 141 mmol/L Potassium Level 3.5 mmol/L Chloride Level 113 mmol/L Carbon Dioxide Level 18 mmol/L Anion Gap 10.0 mmol/L Blood Urea Nitrogen 21 mg/dl Creatinine 1.29 mg/dl Est Creatinine Clear Calc Drug Dose 38.7 ml/min Estimated GFR () 52.1 Estimated GFR (Non- 45.0 BUN/Creatinine Ratio 16.0 Random Glucose 76 mg/dl Calcium Level 8.6 mg/dl Assessment & Plan 61 y/o F w/ chronic HB/CV, EtOH and tobacco abuse, COPD, recent admission for S aureus peritonitis > bacteremia readmitted w/ weakness, lightheadedness, N/V, confusion and found to have creatinine 1.6 on presentation 03/03; had been 1.0 at recent 02/22 d/c, w/ baseline 0.8-0.9 same timeframe. Multifactorial ATN with creatinine of 1.5 with a baseline in early February of 0.8. Was rx'd bactrim prior to admission (started 03/01 by pcp for bacteremia; had been d/c from hospital on doxycycline; need to verify if pt was taking bactrim or not--filled at oupt pharmacy but not clear if was taking); creatinine on was already on upward trend at 1.3 as outpt -intravascular volume depletion in state of chronic total body overload, slow improvement ->>>cont albumin current frequency/dose for now -daily bmp, cbc ->>>await urinalysis -all cxs to date remain negative Hypotension, w/ SBP 60-90s this admission and slowly progressive past months -no outpt BP on file in [facility] since october >> 88/50; prior to that in 2016 through September SBP is 100-130. -SBP during admission early February 60-80s systolic, similar to current; may well reflect progression of ESLD -note that she was also admitted here in 10/2016 w/ c/o hypotension and sbp were higher 80s minimum at that time ->>>no TTE on file for this pt as inpt or outpt and could consider this in smoker w/ hyperlipidemia (LDL 182 06/2016) and multiple chronic illnesses now w/ refractory hypotension ->>>check orthostatics and manual BP; she is ambulating w/o issue and off of 02nc now -if above are satisfactory, consider low dose midodrine -d/t volume issues continue low Na diet; did not order fluid limit at this time d/t lower bp -cont albumin as above Hyperchloremic metabolic acidosis Likely from 8BM past several days -ordered sodium bicarb po -avoid NS or chloride rich solutions -daily bmp -per GI/primary service to titrate lactulose dosing RUQ pain more prominent on exam today > defer to primary service Care coordinated w/ Dr. Sotelo. Appreciate consult; will follow with you. Unclear how accurate I's and O's are, however, appears to be dropping since admission. The patient's volume status though is much improved with the 2 paracenteses with appropriate albumin resuscitation. I do not feel this is hepatorenal given the fact that his urine sodium is greater than 10; however, the patient still could have an element of intravascular volume depletion. With her lungs are clear and abdomen soft and volume status much improved, we would like to give albumin resuscitation for 24 hours to see if we can improve the patient's kidney function; however, the patient likely to require diuretics to help control the recurrent ascites and may need to settle for a higher creatinine. This may unfortunately be patient's new baseline; however, we will attempt more aggressive albumin resuscitation to see if we can o
[2017-03-10 11:49] VITALS: BP 96/62; PULSE 91; TEMP 36.5; O2SAT 98
[2017-03-10] MEDS: ONDANSETRON INJ 2 MG/ML 2 ML VIAL IV PRN ×2 (11:54→19:57)
[2017-03-10] MEDS: THIAMINE HCL 100 MG TAB PO SCH (14:24)
[2017-03-10 16:26] VITALS: BP 94/57; PULSE 100; TEMP 36.6; O2SAT 95
[2017-03-10 16:30] VITALS: O2SAT 95
[2017-03-10 16:44] LABS: URINE APPEARANCE CLEAR (CLEAR); URINE BILIRUBIN NEG (NEG); URINE COLOR DK YELLOW; URINE EPITHELIAL CELL AUTO >30 /lpf (0-5); URINE NITRITE NEG (NEG); URINE PH 5.5 (4.5-7.5); URINE SPECIFIC GRAVITY 1.019 (1.000-1.030); UROBILINOGEN NEG (NEG); ZZUR CULT IF INDIC CLEAN CATCH YES
[2017-03-10 16:49] LABS: MANUAL MICROSCOPIC REQUIRED? NO; REVIEW REQ? YES
[2017-03-10 19:04] VITALS: BP 91/54; PULSE 88; TEMP 36.7; O2SAT 95
[2017-03-10] MEDS ORDERED: SIMETHICONE 80 MG CHEW PO PRN (20:15)
[2017-03-10] MEDS ORDERED: ONDANSETRON INJ 2 MG/ML 2 ML VIAL IV ONE (20:15)
[2017-03-10] MEDS ORDERED: ONDANSETRON INJ 2 MG/ML 2 ML VIAL IV PRN (20:15)
[2017-03-10] MEDS: OXYCODONE HCL IR 5 MG TAB (IMMEDIATE RELEASE) PO PRN (21:48)
--- NOTE | 2017-03-10 22:00 | Progress Note ---
Medicine Progress Note Date & Time of Visit: Mar 10, 2017 at 15:00 . Subjective Loose stools on lactulose. Nausea without vomiting. No abdominal pain. Still receiving albumin infusions. No fever. No chest pain. No cough or shortness of breath. No difficulty voiding. . Objective Last 8 Hrs Date Time Temp Pulse Resp B/P (MAP) Pulse Ox O2 Delivery O2 Flow Rate FiO2 03/10/17 19:04 36.7 88 20 91/54 (66) 95 Room Air 03/10/17 16:30 95 Room Air 03/10/17 16:26 36.6 100 16 94/57 (69) 95 Room Air 03/10/17 16:00 Room Air Physical Exam: General- no distress Eyes- anicteric Lungs- diffuse mild to moderate wheezing Heart- regular Abdomen- moderately distended, soft, diffuse mild tenderness without rebound or guarding Extremities- trace pretibial edema; no calf tenderness Neuro- alert . Laboratory Results: Last 24 Hours Test 03/10/17 07:11 03/10/17 16:30 White Blood Count 9.67 K/uL Red Blood Count 2.79 M/uL Hemoglobin 8.9 g/dL Hematocrit 27.5 % Mean Corpuscular Volume 98.6 fL Mean Corpuscular Hemoglobin 31.9 pg Mean Corpuscular Hemoglobin Concent 32.4 g/dl RDW Standard Deviation 50.5 fL RDW Coefficient of Variation 14.1 % Platelet Count 202 K/uL Mean Platelet Volume 11.0 fL Sodium Level 141 mmol/L Potassium Level 3.5 mmol/L Chloride Level 113 mmol/L Carbon Dioxide Level 18 mmol/L Anion Gap 10.0 mmol/L Blood Urea Nitrogen 21 mg/dl Creatinine 1.29 mg/dl Est Creatinine Clear Calc Drug Dose 38.7 ml/min Estimated GFR () 52.1 Estimated GFR (Non- 45.0 BUN/Creatinine Ratio 16.0 Random Glucose 76 mg/dl Calcium Level 8.6 mg/dl Urine Color DK YELLOW Urine Appearance CLEAR Urine pH 5.5 Urine Specific [place] 1.019 Urine Protein TRACE Urine Glucose (UA) NEG Urine Ketones NEG Urine Occult Blood NEG Urine Nitrite NEG Urine Bilirubin NEG Urine Urobilinogen NEG Urine Leukocyte Esterase NEG Urine WBC (Auto) 1-5 /hpf Urine RBC (Auto) 0-4 /hpf Urine Hyaline Casts (Auto) 1-5 /lpf Urine Epithelial Cells (Auto) >30 /lpf Urine Bacteria (Auto) NEG Urine Pathogenic Casts /lpf Urine Yeast (Auto) BUDDING Urine Random Sodium < 5 mEq/L Date/Time Source Procedure Growth Status 03/10/17 16:30 Urine , Clean Catch Urine Culture Pending Received Assessment & Plan HYPOTENSION Blood pressure 86/49 at time of admission; BP's still relatively low. No apparent infection at this time. Diuretics held. Blood pressures seem to be improving with albumin infusions. Blood pressures historically run relatively low, but are still lower than baseline. Check echocardiogram. Consider addition of midodrine. Follow. HEPATIC ENCEPHALOPATHY No apparent infection or GI bleeding at this time. Improved with lactulose. Having multiple loose BMs. Change lactulose to BID. CIRRHOSIS / ASCITES History of hepatitis C and heavy alcohol consumption. Cirrhosis complicated by portal hypertension, ascites, encephalopathy. GI consulted. RECENT SPONTANEOUS BACTERIAL PERITONITIS Culture of peritoneal fluid from 02/14/17 grew MRSA. Treated with IV vancomycin followed by oral doxycycline. Blood cultures and peritoneal fluid cultures this admission negative thus far. Afebrile. Continue doxycycline to complete course of therapy. ACUTE KIDNEY INJURY Serum creatinine at time of admission 1.56, compared recent baseline of 0.8 - 1.0. Acute kidney injury could be secondary to volume depletion from diuretics, SBP, hepatorenal syndrome. Nephrology consulted. Diuretics being held. Receiving albumin for volume expansion. Serum creatinine today = 1.29. Follow. COPD Pulmonary symptoms stable. Check 2-step pulse oximetry prior to discharge. ALCOHOL CONSUMPTION No signs/symptoms of alcohol withdrawal. Continue thiamine and gabapentin. VTE PROPHYLAXIS Subcutaneous heparin. Ambulate. DISPOSITION Expected discharge to home. Family Medicine follow-up with Dr. Khanna. GI follow-up with [facility]. . Current Inpatient Medications: Current Inpatient Medications Medications (Trade) Dose Ordered Sig/Shelby Route Start Time Stop Time Status Last Admin Dose Admin Ondansetron HCl (Zofran Inj) 4 mg Q6H PRN IV 03/03/17 17:15 04/02/17 17:14 03/10/17 19:57 4 MG Albuterol (Ventolin Hfa Inhaler) 2 puffs Q4 PRN INH 03/03/17 18:30 04/02/17 18:29 Folic Acid (Folvite Tab) 1 mg QAM PO 03/04/17 09:00 04/03/17 08:59 03/10/17 08:23 1 MG Gabapentin (Neurontin Cap) 300 mg TID PO 03/03/17 21:00 04/02/17 20:59 03/10/17 21:52 300 MG Hyoscyamine Sulfate (Levsin Tab) 0.125 mg QID PO 03/03/17 21:00 04/02/17 20:59 03/10/17 21:52 0.125 MG Levothyroxine Sodium (Synthroid Tab) 25 mcg DAILYBB PO 03/04/17 07:00 04/03/17 06:59 03/10/17 06:00 25 MCG Thiamine HCl (Vitamin B-1 Tab) 100 mg QAM PO 03/04/17 09:00 04/03/17 08:59 03/10/17 14:24 100 MG Doxycycline Hyclate (Vibramycin Cap) 100 mg BID PO 03/03/17 21:00 03/17/17 20:59 03/10/17 21:52 100 MG Albuterol/ Ipratropium (Duoneb) 3 ml Q4R PRN INH 03/03/17 18:30 04/02/17 18:29 Acetaminophen (Tylenol Tab) 325 mg Q6H PRN PO 03/03/17 20:30 04/02/17 20:29 Oxycodone HCl (Roxicodone Immediate Rel Tab) 5 mg Q6H PRN PO 03/03/17 20:30 03/17/17 20:29 03/10/17 21:48 5 MG Hydromorphone HCl (Dilaudid Inj) 0.5 mg Q4H PRN IV 03/03/17 20:30 03/17/17 20:29 Nicotine (Nicoderm Cq 21MG Patch) 1 patch QAM TD 03/04/17 09:00 04/03/17 08:59 03/10/17 08:28 1 PATCH Miscellaneous (Remove Nicoderm Patch) 1 ea HS N/A 03/04/17 21:00 04/03/17 20:59 03/10/17 21:51 1 EA Heparin Sodium (Porcine) (Heparin Sq 5000 Unit/0.5ml) 5,000 unit Q12H SQ 03/04/17 08:00 04/03/17 07:59 Future hold 03/10/17 19:59 5,000 UNIT Albumin Human (Albumin 25%) 12.5 gm TID IV 03/08/17 09:00 03/11/17 08:59 03/10/17 21:51 12.5 GM Sodium Bicarbonate (Sodium Bicarbonate Tab) 650 mg TID PO 03/09/17 14:00 04/08/17 13:59 03/10/17 21:53 650 MG Lactulose (Chronulac Syrup) 15 gm BID PO 03/11/17 09:00 04/10/17 08:59 Simethicone (Mylicon Chew Tab) 80 mg Q6H PRN PO 03/10/17 20:15 04/09/17 20:14 03/10/17 21:49 80 MG
[2017-03-11] VITALS (16 sets, daily range): BP systolic 57–119; BP diastolic 41–69; PULSE 78–93; TEMP 36–37.2; O2SAT 92–100
[2017-03-11 06:31] LABS: HEMATOCRIT 26.5 % (37-47)
[2017-03-11] MEDS: LEVOTHYROXINE 25 MCG TAB PO SCH (06:41)
[2017-03-11 06:47] LABS: INR 1.3 (0.9-1.1); PROTHROMBIN TIME (PATIENT) 13.7 SECONDS (9.0-12.0)
[2017-03-11 07:05] LABS: BLOOD UREA NITROGEN 25 mg/dl (7-18); BUN/CREATININE RATIO 18.7 (10-20); CALCIUM 8.8 mg/dl (8.5-10.1); CARBON DIOXIDE 18 mmol/L (21-32); CHLORIDE 115 mmol/L (98-107); CREATININE 1.36 mg/dl (0.60-1.20); GLUCOSE 85 mg/dl (70-99); POTASSIUM 3.4 mmol/L (3.5-5.1); SODIUM 143 mmol/L (136-145)
[2017-03-11] MEDS: MIDODRINE 2.5 MG TAB PO SCH ×2 (08:00→17:20)
[2017-03-11] MEDS: NICOTINE 21 MG/24 HR TDSY TD SCH (08:41)
[2017-03-11] MEDS: HYOSCYAMINE SULFATE 0.125 MG SL TAB PO SCH ×4 (08:44→21:26)
[2017-03-11] MEDS: THIAMINE HCL 100 MG TAB PO SCH (08:45)
[2017-03-11] MEDS: SODIUM BICARBONATE 650 MG TAB PO SCH ×3 (08:45→21:26)
[2017-03-11] MEDS: DOXYCYCLINE HYCLATE 100 MG CAP PO SCH ×2 (08:45→21:26)
[2017-03-11] MEDS: GABAPENTIN 300 MG CAP PO SCH ×3 (08:45→21:26)
--- NOTE | 2017-03-11 08:57 | Gastroenterology Progress Note ---
Progress Note Date of Service: Mar 11, 2017 Subjective Pt evaluation today including: conversation w/ patient, physical exam, chart review, lab review Pt was seen and evaluated, chart reviewed. GI asked to re-evaluate by Dr. Sotelo due to new onset BRBPR. Per pt, she had a BM in the middle of the night, and when she was going to get off the bedside commode, she fell. Per nursing staff, the BM was BRB. NO BM since this episide. Per pt she has mild nausea, no vomiting. There is some abdominal cramping. VSS. 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 H&H stable. EGD 02/28: no varices Review of Systems Constitutional: No fever, No chills Respiratory: No cough, No shortness of breath Cardiac: No chest pain Abdomen: + pain, + nausea, + diarrhea, + GI bleeding, No vomiting, No constipation Medications Current Inpatient Medications Medications (Trade) Dose Ordered Sig/Shelby Route Start Time Stop Time Status Last Admin Dose Admin Ondansetron HCl (Zofran Inj) 4 mg Q6H PRN IV 03/03/17 17:15 04/02/17 17:14 03/10/17 19:57 4 MG Albuterol (Ventolin Hfa Inhaler) 2 puffs Q4 PRN INH 03/03/17 18:30 04/02/17 18:29 Folic Acid (Folvite Tab) 1 mg QAM PO 03/04/17 09:00 04/03/17 08:59 03/10/17 08:23 1 MG Gabapentin (Neurontin Cap) 300 mg TID PO 03/03/17 21:00 04/02/17 20:59 03/10/17 21:52 300 MG Hyoscyamine Sulfate (Levsin Tab) 0.125 mg QID PO 03/03/17 21:00 04/02/17 20:59 03/10/17 21:52 0.125 MG Levothyroxine Sodium (Synthroid Tab) 25 mcg DAILYBB PO 03/04/17 07:00 04/03/17 06:59 03/11/17 06:41 25 MCG Thiamine HCl (Vitamin B-1 Tab) 100 mg QAM PO 03/04/17 09:00 04/03/17 08:59 03/10/17 14:24 100 MG Doxycycline Hyclate (Vibramycin Cap) 100 mg BID PO 03/03/17 21:00 03/17/17 20:59 03/10/17 21:52 100 MG Albuterol/ Ipratropium (Duoneb) 3 ml Q4R PRN INH 03/03/17 18:30 04/02/17 18:29 Acetaminophen (Tylenol Tab) 325 mg Q6H PRN PO 03/03/17 20:30 04/02/17 20:29 Oxycodone HCl (Roxicodone Immediate Rel Tab) 5 mg Q6H PRN PO 03/03/17 20:30 03/17/17 20:29 03/10/17 21:48 5 MG Hydromorphone HCl (Dilaudid Inj) 0.5 mg Q4H PRN IV 03/03/17 20:30 03/17/17 20:29 Nicotine (Nicoderm Cq 21MG Patch) 1 patch QAM TD 03/04/17 09:00 04/03/17 08:59 03/11/17 08:41 1 PATCH Miscellaneous (Remove Nicoderm Patch) 1 ea HS N/A 03/04/17 21:00 04/03/17 20:59 03/10/17 21:51 1 EA Albumin Human (Albumin 25%) 12.5 gm TID IV 03/08/17 09:00 03/11/17 08:59 03/10/17 21:51 12.5 GM Sodium Bicarbonate (Sodium Bicarbonate Tab) 650 mg TID PO 03/09/17 14:00 04/08/17 13:59 03/10/17 21:53 650 MG Simethicone (Mylicon Chew Tab) 80 mg Q6H PRN PO 03/10/17 20:15 04/09/17 20:14 03/10/17 21:49 80 MG Lactulose (Chronulac Syrup) 15 gm BID PO 03/11/17 21:00 04/10/17 20:59 Midodrine (Proamatine Tab) 2.5 mg BID@0800,1700 PO 03/11/17 08:00 04/10/17 07:59 Objective Vital Signs Date Time Temp Pulse Resp B/P (MAP) Pulse Ox O2 Delivery O2 Flow Rate FiO2 03/11/17 07:41 36.8 85 20 92/58 (69) 94 Room Air 03/11/17 05:33 88/52 (64) 03/11/17 04:00 Room Air 03/11/17 03:46 36.8 85 17 92/57 (69) 94 Room Air 03/11/17 00:36 36.9 90 20 90/54 (66) 92 Room Air 03/11/17 00:00 Room Air 03/10/17 20:00 Room Air 03/10/17 19:04 36.7 88 20 91/54 (66) 95 Room Air 03/10/17 16:30 95 Room Air 03/10/17 16:26 36.6 100 16 94/57 (69) 95 Room Air 03/10/17 16:00 Room Air 03/10/17 12:00 Room Air 03/10/17 11:49 36.5 91 20 96/62 (73) 98 03/10/17 09:08 36.7 85 24 86/55 (65) 96 Physical Exam General Appearance: no apparent distress Eyes: PERRL ENT: hearing grossly normal Neck: supple Respiratory/Chest: lungs clear Cardiovascular: regular rate, rhythm Abdomen: normal bowel sounds, soft, no organomegaly, + tenderness (cramping, nausea), + pertinent finding (MARYANN with nonthrombosed external hemorrhoids, internal exam with BRB) Neurologic/Psych: alert, normal mood/affect, oriented x 3 Skin: normal color Laboratory Results Last 24 Hours Test 03/10/17 16:30 03/11/17 06:13 Urine Color DK YELLOW Urine Appearance CLEAR Urine pH 5.5 Urine Specific [place] 1.019 Urine Protein TRACE Urine Glucose (UA) NEG Urine Ketones NEG Urine Occult Blood NEG Urine Nitrite NEG Urine Bilirubin NEG Urine Urobilinogen NEG Urine Leukocyte Esterase NEG Urine WBC (Auto) 1-5 /hpf Urine RBC (Auto) 0-4 /hpf Urine Hyaline Casts (Auto) 1-5 /lpf Urine Epithelial Cells (Auto) >30 /lpf Urine Bacteria (Auto) NEG Urine Pathogenic Casts /lpf Urine Yeast (Auto) BUDDING Urine Random Sodium < 5 mEq/L Hemoglobin 8.6 g/dL Hematocrit 26.5 % Prothrombin Time 13.7 SECONDS Prothromb Time International Ratio 1.3 Sodium Level 143 mmol/L Potassium Level 3.4 mmol/L Chloride Level 115 mmol/L Carbon Dioxide Level 18 mmol/L Anion Gap 10.0 mmol/L Blood Urea Nitrogen 25 mg/dl Creatinine 1.36 mg/dl Estimated GFR () 48.9 Estimated GFR (Non- 42.2 BUN/Creatinine Ratio 18.7 Random Glucose 85 mg/dl Calcium Level 8.8 mg/dl Assessment and Plan Patient is a 61 year old female w suspected ETOH cirrhosis MELD 15, admitted for increasing abd distension and pain, recently admitted and discharged last week, on abx for SBP. Began reaccumulated abd fluid, weak, dizzy, fatigued --> ED. Hypotensive, with abd distention s/p paracentesis with 3L off. BRADLEY --> will rule out HRS. Urine NA 60, first paracentesis without evidence of SBP. Kidney function without improvement over the weekend. Had repeat paracentesis with 4L off --> cultures pending. Nephrology now following, repeating urine NA and to start albumin. Mild improvement of kidney function overnight. Pt was re-evaluated due to new onset BRB x 1 episode with mild nausea, no vomiting and abdominal cramping. NPO EGD IV PPI BID Hold octreotide Start Rocephin Stool culture, stool c.diff If EGD negative, can plan for colonoscopy on Tuesday I interviewed and examined the patient and agrees with the PA (Susannah Clifford) assesment and plan as above. Likely hemorrhoidal bleed. Will perform EGD today and prep for colonoscopy on Tuesday if needed.
[2017-03-11] MEDS ORDERED: PANTOprazole INJ 40 MG in SYRINGE 0 ML IV SCH (09:00)
[2017-03-11] MEDS ORDERED: LACTULOSE SYRUP 20 GM/30 ML UDC PO SCH (09:00)
--- NOTE | 2017-03-11 09:50 | ECHOCARDIOGRAM REPORT ---
*NOTICE TO RECEIVING REPUBLICAN AGENCY This information is strictly Confidential and protected under [place] law. [place] law prohibits you from making any further disclosure of this information unless further disclosure is expressly permitted by the written consent of the person to whom it pertains or is authorized by law. A general authorization for the release of medical or other information is not sufficient for this purpose. Hospital accepts no responsibility if the information is made available to any other person, INCLUDING THE PATIENT. Interpretation Summary * Name: JOSE FRANCISCO BRIZUELA Study Date: 03/11/2017 07:22 AM BP: 88/52 mmHg * Patient Location: .2T\S\E218\S\1 HR: 76 * : 1955 (M/d/yyy) Gender: Female Height: 64 in * Age: 61 yrs Ethnicity: [place] Weight: 116 lb * Ordering Physician: Cachorro Sotelo * Referring Physician: Self, Referred * Performed By: Jeniffer Roy RDCS * * Reason For Study: Hypotension * BSA: 1.6 m2 * -- Conclusions -- * The left ventricular wall motion is normal. * There is normal left ventricular wall thickness. * Left ventricular systolic function is normal. * The LV Ejection Fraction = 60-65%. * The anterior mitral valve leaflet is calcified to a moderate to severe degree. * Significant mitral regurgitation is absent. * There is no mitral valve stenosis. * Grade I diastolic dysfunction, (abnormal relaxation pattern). * Doppler findings do not suggest pulmonary hypertension. Procedure Details * A complete two-dimensional transthoracic echocardiogram was performed (2D, M-mode, Doppler and color flow Doppler). Left Ventricle * The left ventricle is normal in size. * There is normal left ventricular wall thickness. * Ejection Fraction = 60-65%. * Left ventricular systolic function is normal. * The left ventricular wall motion is normal. Right Ventricle * The right ventricle is normal size. * The right ventricular systolic function is normal as assessed by tricuspid annular plane systolic excursion (TAPSE) (normal >1.5 cm). Atria * The left atrial size is normal. * Right atrial size is normal. * There is no evidence of atrial septal defect, but resolution does not allow assessment for a patent foramen ovale. Mitral Valve * The anterior mitral valve leaflet is calcified to a moderate to severe degree. * There is no mitral valve stenosis. * Significant mitral regurgitation is absent. Tricuspid Valve * The tricuspid valve is normal. * There is no tricuspid stenosis. * Significant tricuspid regurgitation is absent. * Doppler findings do not suggest pulmonary hypertension. Aortic Valve * The aortic valve is trileaflet. * Aortic stenosis is absent. * There is no significant aortic regurgitation. Pulmonic Valve * The pulmonary valve is not well seen, but the Doppler examination is normal without significant regurgitation or stenosis. Great Vessels * The aortic root and proximal ascending aorta are normal sized. Pericardium/Pleural * There is no pericardial effusion. Great Vessels * Normal inferior vena cava diameter and respiratory variation suggests normal central venous pressure. * Normal inferior vena cava size and collapsability with sniff indicates a normal right atrial pressure of 3 mmHg Left Ventricular Diastolic Function * Grade I diastolic dysfunction, (abnormal relaxation pattern). MMode 2D Measurements and Calculations IVSd 0.81 cm LVIDd 4.3 cm LVIDs 2.7 cm LVPWd 0.92 cm IVS/LVPW 0.88 FS 38.1 % EDV(Teich) 84.5 ml ESV(Teich) 26.5 ml EF(Teich) 68.6 % EDV(cubed) 81.3 ml ESV(cubed) 19.2 ml EF(cubed) 76.3 % LV mass(C)d 118.1 grams LV mass(C)dI 76.1 grams/m\S\2 SV(Teich) 58.0 ml SI(Teich) 37.4 ml/m\S\2 SV(cubed) 62.0 ml SI(cubed) 40.0 ml/m\S\2 Ao root diam 3.1 cm Ao root area 7.7 cm\S\2 ACS 2.0 cm LA dimension 2.4 cm asc Aorta Diam 3.0 cm LA/Ao 0.78 LVOT diam 2.0 cm LVOT area 3.2 cm\S\2 LVAd ap4 18.6 cm\S\2 LVLd ap4 6.2 cm EDV(MOD-sp4) 47.2 ml EDV(sp4-el) 47.0 ml LVAs ap4 9.5 cm\S\2 LVLs ap4 5.3 cm ESV(MOD-sp4) 14.3 ml ESV(sp4-el) 14.4 ml EF(MOD-sp4) 69.6 % EF(sp4-el) 69.4 % LVAd ap2 17.6 cm\S\2 LVLd ap2 6.6 cm EDV(MOD-sp2) 39.2 ml EDV(sp2-el) 39.7 ml LVAs ap2 8.3 cm\S\2 LVLs ap2 5.1 cm ESV(MOD-sp2) 10.9 ml ESV(sp2-el) 11.3 ml EF(MOD-sp2) 72.1 % EF(sp2-el) 71.5 % LVLd %diff 5.7 % EDV(MOD-bp) 44.1 ml LVLs %diff -3.93 % ESV(MOD-bp) 12.5 ml EF(MOD-bp) 71.6 % SV(MOD-sp4) 32.8 ml SI(MOD-sp4) 21.2 ml/m\S\2 SV(MOD-sp2) 28.3 ml SI(MOD-sp2) 18.2 ml/m\S\2 SV(MOD-bp) 31.6 ml SI(MOD-bp) 20.4 ml/m\S\2 SV(sp4-el) 32.7 ml SI(sp4-el) 21.0 ml/m\S\2 SV(sp2-el) 28.4 ml SI(sp2-el) 18.3 ml/m\S\2 Doppler Measurements and Calculations MV dec time 0.28 sec Ao V2 max 97.9 cm/sec Ao max PG 3.8 mmHg Ao max PG (full) 0.79 mmHg ADDIE(V,A) 2.8 cm\S\2 ADDIE(V,D) 2.8 cm\S\2 LV V1 max PG 3.1 mmHg LV V1 max 87.3 cm/sec PA V2 max 88.2 cm/sec PA max PG 3.1 mmHg PA acc slope 432.1 cm/sec\S\2 PA acc time 0.15 sec PA pr(Accel) 9.3 mmHg
[2017-03-11] MEDS ORDERED: DEXTROSE 5% IV ONE (10:00)
[2017-03-11] MEDS ORDERED: CEFTRIAXONE SOD IV ONE (10:00)
[2017-03-11] MEDS ORDERED: ADD VANTAGE IV ONE (10:00)
[2017-03-11] MEDS ORDERED: ETOMIDATE 2 MG/ML 20 ML VIAL IV ONE (10:06)
[2017-03-11] MEDS ORDERED: LIDOCAINE HCL 2% 2 ML VIAL (20MG/ML) ONE (10:06)
--- NOTE | 2017-03-11 10:22 | Nephrology Progress Note ---
Nephrology Progress Note Date of Service: Mar 11, 2017. Subjective passed out/ found on floor overnight; had several bright red bloody bm overnight , including 2+ this am acc by significant abd pain; she is NPO; some lightheadedness w/ position changes; no edema or dypsnea Objective Date Time Temp Pulse Resp B/P (MAP) Pulse Ox O2 Delivery O2 Flow Rate FiO2 03/11/17 07:41 36.8 85 20 92/58 (69) 94 Room Air 03/11/17 05:33 88/52 (64) 03/11/17 04:00 Room Air 03/11/17 03:46 36.8 85 17 92/57 (69) 94 Room Air 03/11/17 00:36 36.9 90 20 90/54 (66) 92 Room Air 03/11/17 00:00 Room Air 03/10/17 20:00 Room Air 03/10/17 19:04 36.7 88 20 91/54 (66) 95 Room Air 03/10/17 16:30 95 Room Air 03/10/17 16:26 36.6 100 16 94/57 (69) 95 Room Air 03/10/17 16:00 Room Air 03/10/17 12:00 Room Air 03/10/17 11:49 36.5 91 20 96/62 (73) 98 03/10/17 09:08 36.7 85 24 86/55 (65) 96 Physical Exam: GENERAL: Awake, alert, oriented x3. on RA; moderate distress from GI issues; just up to bedside commode EYES: No scleral icterus. ENT: Moist mucous membranes. NECK: Supple. PULMONARY: Clear w/ diminished air entry throughout. CARDIAC: Regular rate and rhythm. ABDOMEN: Soft. today more distention, + fluid wave; +BS, no calero. marked upper abdominal TTP. EXTREMITIES: No clubbing, cyanosis or edema. NEUROLOGICALLY: silveira, fluent speech. DERM: No rash or ulcers noted. Current Inpatient Medications Medications (Trade) Dose Ordered Sig/Shelby Route Start Time Stop Time Status Last Admin Dose Admin Ondansetron HCl (Zofran Inj) 4 mg Q6H PRN IV 03/03/17 17:15 04/02/17 17:14 03/10/17 19:57 4 MG Albuterol (Ventolin Hfa Inhaler) 2 puffs Q4 PRN INH 03/03/17 18:30 04/02/17 18:29 Folic Acid (Folvite Tab) 1 mg QAM PO 03/04/17 09:00 04/03/17 08:59 03/10/17 08:23 1 MG Gabapentin (Neurontin Cap) 300 mg TID PO 03/03/17 21:00 04/02/17 20:59 03/10/17 21:52 300 MG Hyoscyamine Sulfate (Levsin Tab) 0.125 mg QID PO 03/03/17 21:00 04/02/17 20:59 03/10/17 21:52 0.125 MG Levothyroxine Sodium (Synthroid Tab) 25 mcg DAILYBB PO 03/04/17 07:00 04/03/17 06:59 03/11/17 06:41 25 MCG Thiamine HCl (Vitamin B-1 Tab) 100 mg QAM PO 03/04/17 09:00 04/03/17 08:59 03/10/17 14:24 100 MG Doxycycline Hyclate (Vibramycin Cap) 100 mg BID PO 03/03/17 21:00 03/17/17 20:59 03/10/17 21:52 100 MG Albuterol/ Ipratropium (Duoneb) 3 ml Q4R PRN INH 03/03/17 18:30 04/02/17 18:29 Acetaminophen (Tylenol Tab) 325 mg Q6H PRN PO 03/03/17 20:30 04/02/17 20:29 Oxycodone HCl (Roxicodone Immediate Rel Tab) 5 mg Q6H PRN PO 03/03/17 20:30 03/17/17 20:29 03/10/17 21:48 5 MG Hydromorphone HCl (Dilaudid Inj) 0.5 mg Q4H PRN IV 03/03/17 20:30 03/17/17 20:29 Nicotine (Nicoderm Cq 21MG Patch) 1 patch QAM TD 03/04/17 09:00 04/03/17 08:59 03/10/17 08:28 1 PATCH Miscellaneous (Remove Nicoderm Patch) 1 ea HS N/A 03/04/17 21:00 04/03/17 20:59 03/10/17 21:51 1 EA Albumin Human (Albumin 25%) 12.5 gm TID IV 03/08/17 09:00 03/11/17 08:59 03/10/17 21:51 12.5 GM Sodium Bicarbonate (Sodium Bicarbonate Tab) 650 mg TID PO 03/09/17 14:00 04/08/17 13:59 03/10/17 21:53 650 MG Simethicone (Mylicon Chew Tab) 80 mg Q6H PRN PO 03/10/17 20:15 04/09/17 20:14 03/10/17 21:49 80 MG Lactulose (Chronulac Syrup) 15 gm BID PO 03/11/17 21:00 04/10/17 20:59 Midodrine (Proamatine Tab) 2.5 mg BID@0800,1700 PO 03/11/17 08:00 04/10/17 07:59 Last 24 Hours Test 03/10/17 16:30 03/11/17 06:13 Urine Color DK YELLOW Urine Appearance CLEAR Urine pH 5.5 Urine Specific [place] 1.019 Urine Protein TRACE Urine Glucose (UA) NEG Urine Ketones NEG Urine Occult Blood NEG Urine Nitrite NEG Urine Bilirubin NEG Urine Urobilinogen NEG Urine Leukocyte Esterase NEG Urine WBC (Auto) 1-5 /hpf Urine RBC (Auto) 0-4 /hpf Urine Hyaline Casts (Auto) 1-5 /lpf Urine Epithelial Cells (Auto) >30 /lpf Urine Bacteria (Auto) NEG Urine Pathogenic Casts /lpf Urine Yeast (Auto) BUDDING Urine Random Sodium < 5 mEq/L Hemoglobin 8.6 g/dL Hematocrit 26.5 % Prothrombin Time 13.7 SECONDS Prothromb Time International Ratio 1.3 Sodium Level 143 mmol/L Potassium Level 3.4 mmol/L Chloride Level 115 mmol/L Carbon Dioxide Level 18 mmol/L Anion Gap 10.0 mmol/L Blood Urea Nitrogen 25 mg/dl Creatinine 1.36 mg/dl Estimated GFR () 48.9 Estimated GFR (Non- 42.2 BUN/Creatinine Ratio 18.7 Random Glucose 85 mg/dl Calcium Level 8.8 mg/dl Date/Time Source Procedure Growth Status 03/10/17 16:30 Urine , Clean Catch Urine Culture Pending Received Assessment & Plan 61 y/o F w/ chronic HB/CV, EtOH and tobacco abuse, COPD, recent admission for S aureus peritonitis > bacteremia readmitted w/ weakness, lightheadedness, N/V, confusion and found to have creatinine 1.6 on presentation 03/03; had been 1.0 at recent 02/22 d/c, w/ baseline 0.8-0.9 same timeframe. on 03/11 got brbpr. Multifactorial ATN with creatinine of 1.5 with a baseline in early February of 0.8. Was rx'd bactrim prior to admission (started 03/01 by pcp for bacteremia; had been d/c from hospital on doxycycline; bactrim had been filled at oupt pharmacy but not clear if was taking); creatinine on 02/25 was already on upward trend at 1.3 as outpt. uirine sediment contaminated, has yeast; else bland. -intravascular volume depletion in state of chronic total body overload, stable but no consistent improvement>> now w/ active bleeding ->>>cont albumin current frequency/dose for now -daily bmp, cbc -all cxs to date remain negative hypokalemia in setting of significant diarrhea and NPO status >recheck at 1300 ordered hematochezia -for egd today -recheck h/h 1300 Hypotension, w/ SBP 60-90s this admission and slow progressive worsening past months -no outpt BP on file in [facility] since october >> 88/50; prior to that in 2016 through September SBP is 100-130. -SBP during admission early February 60-80s systolic, similar to current; may well reflect progression of ESLD -note that she was also admitted here in 10/2016 w/ c/o hypotension and sbp were higher 80s minimum at that time ->>>TTE w/ mitral calcification but no severe valvular or ventricular dysfunction or wma -on trial of low dose midodrine -monitor H/H -d/t volume issues continue low Na diet; did not order fluid limit at this time d/t lower bp -cont albumin as above Hyperchloremic metabolic acidosis Likely from 8BM past several days -cont sodium bicarb po -avoid NS or chloride rich solutions RUQ/abd pain still more prominent today > in setting of acute bleed; for EGD; Gi following Care coordinated w/ Dr. Sotelo. Appreciate consult; will follow with you. Unclear how accurate I's and O's are, however, appears to be dropping since admission. The patient's volume status though is much improved with the 2 paracenteses with appropriate albumin resuscitation. I do not feel this is hepatorenal given the fact that his urine sodium is greater than 10; however, the patient still could have an element of intravascular volume depletion. With her lungs are clear and abdomen soft and volume status much improved, we would like to give albumin resuscitation for 24 hours to see if we can improve the patient's kidney function; however, the patient likely to require diuretics to help control the recurrent ascites and may need to settle for a higher creatinine. This may unfortunately be patient's new baseline; however, we will attempt more aggressive albumin resuscitation to see if we can o
--- NOTE | 2017-03-11 10:58 | History & Physical Bridge Note ---
H&P Re-Evaluation Bridge Note: I have examined the patient, reviewed the History & Physical and in the interval since the performance of the History & Physical I have noted the following changes of clinical significance: Interval rectal bleed. Will do EGD to r/o Upper GI bleed. Patient was explained about the risk, benefit and alternative and agreed.
[2017-03-11] MEDS ORDERED: ALBUMIN HUMAN 5% 12.5 GM/250 ML VIAL IV ONE (11:11)
[2017-03-11] MEDS ORDERED: PHENYLEPHRINE 100MCG/ML 5ML SYR ONE (11:16)
[2017-03-11] MEDS ORDERED: BENZOCAIN/TETRACA/BUTAM SPRAY 200 APPLN/20 GM SPRY ONE (11:16)
--- NOTE | 2017-03-11 11:43 | Progress Note ---
Progress Note Date of Service Mar 11, 2017. Progress Note EGD WNL, suggest stool samples as ordered and plan for colonoscopy on Tuesday. Pt can have diet as tolerated today and Tuesday. Pt should have a clear liquid diet, Tuesday, March 13 and should start prep with 4L golytely at 1700. NPO March 13 [id number] for colonoscopy Tuesday,March 14 I will not order the colytely prep, defer to primary team to order over the weekend.
[2017-03-11 13:04] LABS: HEMATOCRIT 23.1 % (37-47)
--- NOTE | 2017-03-11 13:35 | Anesthesiology Progress Note ---
Anesthesia Post Op Note Date & Time Mar 11, 2017 at 13:27 Vital Signs Pain Intensity: 0.0 Vital Signs Past 12 Hours Date Time Temp Pulse Resp B/P (MAP) Pulse Ox O2 Delivery O2 Flow Rate FiO2 03/11/17 13:13 36.6 78 16 92/51 (65) 95 Room Air 03/11/17 12:58 78 18 73/52 (59) 99 Room Air 03/11/17 12:39 76 16 83/52 (62) 99 Room Air 03/11/17 12:16 78 16 77/49 (58) 98 Room Air 03/11/17 12:03 77 16 80/47 (58) 97 Room Air 03/11/17 12:02 77 16 73/39 (50) 97 Room Air 03/11/17 11:50 79 16 93/57 (69) 97 Room Air 03/11/17 11:48 76 16 78/50 (59) 100 Room Air 03/11/17 11:35 79 16 82/57 (65) 100 Room Air 03/11/17 10:27 36.7 75 18 87/54 (65) 96 Room Air 03/11/17 10:19 36.8 85 20 92/58 94 Room Air 2.0 03/11/17 08:00 Room Air 03/11/17 07:41 36.8 85 20 92/58 (69) 94 Room Air 03/11/17 05:33 88/52 (64) 03/11/17 04:00 Room Air 03/11/17 03:46 36.8 85 17 92/57 (69) 94 Room Air Notes Mental Status: alert / awake / arousable, participated in evaluation Pt Amnestic to Procedure: Yes Nausea / Vomiting: adequately controlled Pain: adequately controlled Airway Patency, RR, SpO2: stable & adequate BP & HR: stable & adequate Hydration State: stable & adequate Anesthetic Complications: no major complications apparent The patient is a 61 y/o female with a h/o liver disease, ETOH abuse, Hep B and C, COPD and hypothyroidism s/p EGD. The patient has been hypotensive since in admission with BPs running in the 60-90s systolic. An echo done this morning showed preserved LV function with no major valvular disease thus her hypotension is likely due to her severe liver disease. On arrival to the endoscopy unit the patient's BP was in the 80s systolic and was down to 71 systolic prior to the procedure. The patient was given 200mcg phenylephrine IV and Etomidate 10mg IV during the procedure. She tolerative the procedure well. Postop, the patient's BPs again were dropping to the 70s systolic. She received 500cc 5% Albumin and a total of 800mcg IV phenylephrine perioperatively. The patient felt well in recovery other than having abdominal pain which was unchanged from prior to the procedure. She denied feeling lightheaded or dizzy. I spoke to Dr. Sotelo who has been following the patient on the floor regarding the patient's hypotension. He stated that the patient has been hypotensive since admission and because she is asymptomatic he is ok with her returning to telemetry. He will follow her closely and is ordering a stat Hgb and potassium level which he will follow-up on.
[2017-03-11] MEDS: POTASSIUM CHLR 10 MEQ / WTR 10 MEQ in PREMIXED WATER 100 ML IV SCH ×2 (14:19→17:18)
[2017-03-11] MEDS: LACTULOSE SYRUP 10 GM/15 ML BTL 473 ML PO SCH (21:00)
--- NOTE | 2017-03-11 22:33 | Progress Note ---
Medicine Progress Note Date & Time of Visit: Mar 11, 2017 at 09:50 . Subjective Found on floor this morning. Apparently fell while ambulating to commode without assistance. Had a loose stool with some gross blood. No injury. No fever. No chest pain. No cough or SOB. Has some upper abdominal discomfort. . Objective Vital Signs Label Value Date Time Patient Temperature 36.8 C. 03/11/17740 Temperature Source Oral 03/11/17740 Pulse 85 03/11/17740 Location Right Brachial Respiratory Rate 20 03/11/17740 Blood Pressure Assessment 92/58 (69) 03/11/17740 Location Right Arm Source NIBP Position Supine Bedside Pulse Oximetry 94 % 03/11/17740 Item Value Date Time Oxygen Delivery Method Room Air 03/11/17740 Physical Exam: General- no distress Eyes- anicteric Lungs- diffuse mild wheezing Heart- regular Abdomen- moderately distended, soft, mild epigastric tenderness without rebound or guarding Extremities- trace pretibial edema; no calf tenderness Neuro- alert . Laboratory Results: Last 24 Hours Test 03/11/17 06:13 03/11/17 12:54 Hemoglobin 8.6 g/dL 7.5 g/dL Hematocrit 26.5 % 23.1 % Prothrombin Time 13.7 SECONDS Prothromb Time International Ratio 1.3 Sodium Level 143 mmol/L Potassium Level 3.4 mmol/L 3.4 mmol/L Chloride Level 115 mmol/L Carbon Dioxide Level 18 mmol/L Anion Gap 10.0 mmol/L Blood Urea Nitrogen 25 mg/dl Creatinine 1.36 mg/dl Estimated GFR () 48.9 Estimated GFR (Non- 42.2 BUN/Creatinine Ratio 18.7 Random Glucose 85 mg/dl Calcium Level 8.8 mg/dl Date/Time Source Procedure Growth Status 03/11/17 11:15 Throat Fungal Smear Pending Received 03/11/17 11:15 Throat Fungal Culture Pending Received 03/11/17 14:32 Stool Shiga Toxin Test Pending Received 03/11/17 14:32 Stool Stool Culture Pending Received 03/11/17 14:20 Stool C.difficile Toxin B Gene (PCR) - Final No C. difficile toxin B gene detected Complete Assessment & Plan GI BLEEDING GI bleeding this morning. Discussed with GI. EGD anticipated. Follow H/H. HYPOTENSION Blood pressure 86/49 at time of admission; BP's still relatively low. No apparent infection at this time. Diuretics held. Blood pressures seem to be improving with albumin infusions. Blood pressures historically run relatively low, but are still lower than baseline. Check echocardiogram. Start midodrine. Follow. HEPATIC ENCEPHALOPATHY No apparent infection or GI bleeding at this time. Improved with lactulose. Having multiple loose BMs. Change lactulose to BID. CIRRHOSIS / ASCITES History of hepatitis C and heavy alcohol consumption. Cirrhosis complicated by portal hypertension, ascites, encephalopathy. GI consulted. RECENT SPONTANEOUS BACTERIAL PERITONITIS Culture of peritoneal fluid from 02/14/17 grew MRSA. Treated with IV vancomycin followed by oral doxycycline. Blood cultures and peritoneal fluid cultures this admission negative thus far. Afebrile. Continue doxycycline to complete course of therapy. ACUTE KIDNEY INJURY Serum creatinine at time of admission 1.56, compared recent baseline of 0.8 - 1.0. Acute kidney injury could be secondary to volume depletion from diuretics, SBP, hepatorenal syndrome. Nephrology consulted. Diuretics being held. Receiving albumin for volume expansion. Serum creatinine today = 1.36. Follow. COPD Pulmonary symptoms stable. Check 2-step pulse oximetry prior to discharge. ALCOHOL CONSUMPTION No signs/symptoms of alcohol withdrawal. Continue thiamine and gabapentin. VTE PROPHYLAXIS Initially received subcutaneous heparin. Heparin stopped due to GI bleed. SCD's. Ambulate as able. DISPOSITION Discharge disposition to be determined. Family Medicine follow-up with Dr. Khanna. GI follow-up with [facility]. ADDENDUM: EGD- white adherent material in lower 3rd of esophagus, ? Sada. No bleeding varices or ulcers. Repeat Hgb 7.5. Transfuse 1 unit pRBC's. Consent obtained. Echo- LVEF 60-65%, no pericardial effusion, no pulm hypertension. Nursing staff notes that BP right arm > left arm. . . Current Inpatient Medications: Current Inpatient Medications Medications (Trade) Dose Ordered Sig/Shelby Route Start Time Stop Time Status Last Admin Dose Admin Ondansetron HCl (Zofran Inj) 4 mg Q6H PRN IV 03/03/17 17:15 04/02/17 17:14 03/10/17 19:57 4 MG Albuterol (Ventolin Hfa Inhaler) 2 puffs Q4 PRN INH 03/03/17 18:30 04/02/17 18:29 Folic Acid (Folvite Tab) 1 mg QAM PO 03/04/17 09:00 04/03/17 08:59 03/10/17 08:23 1 MG Gabapentin (Neurontin Cap) 300 mg TID PO 03/03/17 21:00 04/02/17 20:59 03/11/17 21:26 300 MG Hyoscyamine Sulfate (Levsin Tab) 0.125 mg QID PO 03/03/17 21:00 04/02/17 20:59 03/11/17 21:26 0.125 MG Levothyroxine Sodium (Synthroid Tab) 25 mcg DAILYBB PO 03/04/17 07:00 04/03/17 06:59 03/11/17 06:41 25 MCG Thiamine HCl (Vitamin B-1 Tab) 100 mg QAM PO 03/04/17 09:00 04/03/17 08:59 03/10/17 14:24 100 MG Doxycycline Hyclate (Vibramycin Cap) 100 mg BID PO 03/03/17 21:00 03/17/17 20:59 03/11/17 21:26 100 MG Albuterol/ Ipratropium (Duoneb) 3 ml Q4R PRN INH 03/03/17 18:30 04/02/17 18:29 Acetaminophen (Tylenol Tab) 325 mg Q6H PRN PO 03/03/17 20:30 04/02/17 20:29 Oxycodone HCl (Roxicodone Immediate Rel Tab) 5 mg Q6H PRN PO 03/03/17 20:30 03/17/17 20:29 03/10/17 21:48 5 MG Hydromorphone HCl (Dilaudid Inj) 0.5 mg Q4H PRN IV 03/03/17 20:30 03/17/17 20:29 Nicotine (Nicoderm Cq 21MG Patch) 1 patch QAM TD 03/04/17 09:00 04/03/17 08:59 03/11/17 08:41 1 PATCH Miscellaneous (Remove Nicoderm Patch) 1 ea HS N/A 03/04/17 21:00 04/03/17 20:59 03/11/17 21:24 1 EA Sodium Bicarbonate (Sodium Bicarbonate Tab) 650 mg TID PO 03/09/17 14:00 04/08/17 13:59 03/11/17 21:26 650 MG Simethicone (Mylicon Chew Tab) 80 mg Q6H PRN PO 03/10/17 20:15 04/09/17 20:14 03/10/17 21:49 80 MG Lactulose (Chronulac Syrup) 15 gm BID PO 03/11/17 21:00 04/10/17 20:59 Midodrine (Proamatine Tab) 2.5 mg BID@0800,1700 PO 03/11/17 08:00 04/10/17 07:59 03/11/17 17:20 2.5 MG
[2017-03-12 04:49] VITALS: BP 93/58; PULSE 83; TEMP 37.1; O2SAT 94
[2017-03-12 06:30] LABS: HEMATOCRIT 27.9 % (37-47); MEAN CELL VOLUME 95.2 fL (80-100); MEAN CORPUSCULAR HEMOGLOBIN 31.1 pg (25-34); MEAN CORPUSCULAR HGB CONC 32.6 g/dl (32-36); MEAN PLATELET VOLUME 10.6 fL (7.4-10.4); PLATELET COUNT 171 K/uL (130-400); RED BLOOD COUNT 2.93 M/uL (4.2-5.4); WHITE BLOOD COUNT 12.58 K/uL (4.8-10.8)
[2017-03-12] MEDS: LEVOTHYROXINE 25 MCG TAB PO SCH (06:45)
[2017-03-12 07:07] LABS: BUN/CREATININE RATIO 17.7 (10-20); CALCIUM 8.6 mg/dl (8.5-10.1); CREATININE 1.21 mg/dl (0.60-1.20); POTASSIUM 3.8 mmol/L (3.5-5.1)
[2017-03-12 07:21] LABS: BASO % 0.5 %; BASO ABS # 0.06 K/uL (0-0.2); COMPLETE YES; EOS % 2.3 %; IG% 0.3 %; LYMPH % 22.7 %; LYMPH ABS # 2.86 K/uL (1.2-3.4); MONO % 11.7 %; NEUT % 62.5 %
[2017-03-12 08:01] VITALS: BP 94/60; PULSE 81; TEMP 36.9; O2SAT 96
[2017-03-12] MEDS: THIAMINE HCL 100 MG TAB PO SCH (08:34)
[2017-03-12] MEDS: NICOTINE 21 MG/24 HR TDSY TD SCH (08:34)
[2017-03-12] MEDS: SODIUM BICARBONATE 650 MG TAB PO SCH ×3 (08:34→20:50)
[2017-03-12] MEDS: GABAPENTIN 300 MG CAP PO SCH ×3 (08:35→20:50)
[2017-03-12] MEDS: MIDODRINE 2.5 MG TAB PO SCH ×2 (08:35→16:13)
[2017-03-12] MEDS: HYOSCYAMINE SULFATE 0.125 MG SL TAB PO SCH ×4 (08:35→20:49)
[2017-03-12] MEDS: DOXYCYCLINE HYCLATE 100 MG CAP PO SCH ×2 (08:35→20:49)
[2017-03-12] MEDS: OXYCODONE HCL IR 5 MG TAB (IMMEDIATE RELEASE) PO PRN ×2 (08:35→20:48)
[2017-03-12] MEDS: LACTULOSE SYRUP 10 GM/15 ML BTL 473 ML PO SCH ×2 (08:36→22:21)
--- NOTE | 2017-03-12 09:54 | Gastroenterology Progress Note ---
Progress Note Date of Service: Mar 12, 2017 Subjective Pt evaluation today including: conversation w/ patient, physical exam The patient reports having no recurrent hematochezia overnight. She did note having some blood on tissue paper yesterday and is not able to further described her bowel movements. An upper endoscopy showed no evidence of esophageal varices or peptic ulcer disease. She did have a prior colonoscopy just over 1 year ago that appears to be within normal limits. She is somewhat reluctant about undergoing another procedure during this hospitalization. Review of Systems Constitutional: No fever, No weight loss, No fatigue Respiratory: No cough, No wheezing, No dyspnea at rest Cardiac: No chest pain, No PND, No palpitations Medications Current Inpatient Medications Medications (Trade) Dose Ordered Sig/Shelby Route Start Time Stop Time Status Last Admin Dose Admin Ondansetron HCl (Zofran Inj) 4 mg Q6H PRN IV 03/03/17 17:15 04/02/17 17:14 03/10/17 19:57 4 MG Albuterol (Ventolin Hfa Inhaler) 2 puffs Q4 PRN INH 03/03/17 18:30 04/02/17 18:29 Folic Acid (Folvite Tab) 1 mg QAM PO 03/04/17 09:00 04/03/17 08:59 03/12/17 08:34 1 MG Gabapentin (Neurontin Cap) 300 mg TID PO 03/03/17 21:00 04/02/17 20:59 03/12/17 08:35 300 MG Hyoscyamine Sulfate (Levsin Tab) 0.125 mg QID PO 03/03/17 21:00 04/02/17 20:59 03/12/17 08:35 0.125 MG Levothyroxine Sodium (Synthroid Tab) 25 mcg DAILYBB PO 03/04/17 07:00 04/03/17 06:59 03/12/17 06:45 25 MCG Thiamine HCl (Vitamin B-1 Tab) 100 mg QAM PO 03/04/17 09:00 04/03/17 08:59 03/12/17 08:34 100 MG Doxycycline Hyclate (Vibramycin Cap) 100 mg BID PO 03/03/17 21:00 03/17/17 20:59 03/12/17 08:35 100 MG Albuterol/ Ipratropium (Duoneb) 3 ml Q4R PRN INH 03/03/17 18:30 04/02/17 18:29 Acetaminophen (Tylenol Tab) 325 mg Q6H PRN PO 03/03/17 20:30 04/02/17 20:29 Oxycodone HCl (Roxicodone Immediate Rel Tab) 5 mg Q6H PRN PO 03/03/17 20:30 03/17/17 20:29 03/12/17 08:35 5 MG Hydromorphone HCl (Dilaudid Inj) 0.5 mg Q4H PRN IV 03/03/17 20:30 03/17/17 20:29 Nicotine (Nicoderm Cq 21MG Patch) 1 patch QAM TD 03/04/17 09:00 04/03/17 08:59 03/12/17 08:34 1 PATCH Miscellaneous (Remove Nicoderm Patch) 1 ea HS N/A 03/04/17 21:00 04/03/17 20:59 03/11/17 21:24 1 EA Sodium Bicarbonate (Sodium Bicarbonate Tab) 650 mg TID PO 03/09/17 14:00 04/08/17 13:59 03/12/17 08:34 650 MG Simethicone (Mylicon Chew Tab) 80 mg Q6H PRN PO 03/10/17 20:15 04/09/17 20:14 03/10/17 21:49 80 MG Lactulose (Chronulac Syrup) 15 gm BID PO 03/11/17 21:00 04/10/17 20:59 03/12/17 08:36 15 GM Midodrine (Proamatine Tab) 2.5 mg BID@0800,1700 PO 03/11/17 08:00 04/10/17 07:59 03/12/17 08:35 2.5 MG Objective Vital Signs Date Time Temp Pulse Resp B/P (MAP) Pulse Ox O2 Delivery O2 Flow Rate FiO2 03/12/17 08:01 36.9 81 14 94/60 (71) 96 Room Air 03/12/17 08:00 Room Air 03/12/17 04:49 37.1 83 18 93/58 (70) 94 Room Air 03/12/17 04:00 Room Air 03/12/17 00:00 Room Air 03/11/17 23:40 36.9 93 18 92/58 (69) 94 Room Air 03/11/17 21:00 37.2 87 16 93/62 100 03/11/17 20:30 37.0 87 16 99/65 96 03/11/17 20:15 36.9 89 16 101/69 99 03/11/17 20:00 Room Air 03/11/17 20:00 36.8 88 20 96/65 99 03/11/17 19:45 36.0 85 20 57/41 96 03/11/17 19:30 36.9 85 18 82/49 96 03/11/17 19:15 36.9 88 20 73/49 97 03/11/17 19:15 36.9 92 20 119/56 98 2.0 03/11/17 19:00 36.8 92 22 81/47 95 03/11/17 16:00 Room Air 03/11/17 15:19 36.5 79 18 85/54 (64) 98 Room Air 03/11/17 13:13 36.6 78 16 92/51 (65) 95 Room Air 03/11/17 12:58 78 18 73/52 (59) 99 Room Air 03/11/17 12:39 76 16 83/52 (62) 99 Room Air 03/11/17 12:16 78 16 77/49 (58) 98 Room Air 03/11/17 12:03 77 16 80/47 (58) 97 Room Air 03/11/17 12:02 77 16 73/39 (50) 97 Room Air 03/11/17 12:00 Room Air 03/11/17 11:50 79 16 93/57 (69) 97 Room Air 03/11/17 11:48 76 16 78/50 (59) 100 Room Air 03/11/17 11:35 79 16 82/57 (65) 100 Room Air 03/11/17 10:27 36.7 75 18 87/54 (65) 96 Room Air 03/11/17 10:19 36.8 85 20 92/58 94 Room Air 2.0 Physical Exam General Appearance: + mild distress Eyes: PERRL Neck: no JVD Respiratory/Chest: lungs clear Cardiovascular: + systolic murmur Abdomen: soft Neurologic/Psych: oriented x 3 Skin: no jaundice Laboratory Results Last 24 Hours Test 03/11/17 12:54 03/12/17 06:21 Hemoglobin 7.5 g/dL 9.1 g/dL Hematocrit 23.1 % 27.9 % Potassium Level 3.4 mmol/L 3.8 mmol/L White Blood Count 12.58 K/uL Red Blood Count 2.93 M/uL Mean Corpuscular Volume 95.2 fL Mean Corpuscular Hemoglobin 31.1 pg Mean Corpuscular Hemoglobin Concent 32.6 g/dl Platelet Count 171 K/uL Mean Platelet Volume 10.6 fL Neutrophils (%) (Auto) 62.5 % Lymphocytes (%) (Auto) 22.7 % Monocytes (%) (Auto) 11.7 % Eosinophils (%) (Auto) 2.3 % Basophils (%) (Auto) 0.5 % Neutrophils # (Auto) 7.86 K/uL Lymphocytes # (Auto) 2.86 K/uL Monocytes # (Auto) 1.47 K/uL Eosinophils # (Auto) 0.29 K/uL Basophils # (Auto) 0.06 K/uL RDW Standard Deviation 54.8 fL RDW Coefficient of Variation 15.8 % Immature Granulocyte % (Auto) 0.3 % Immature Granulocyte # (Auto) 0.04 K/uL Sodium Level 143 mmol/L Chloride Level 118 mmol/L Carbon Dioxide Level 18 mmol/L Anion Gap 7.0 mmol/L Blood Urea Nitrogen 21 mg/dl Creatinine 1.21 mg/dl Est Creatinine Clear Calc Drug Dose 42.5 ml/min Estimated GFR () 56.3 Estimated GFR (Non- 48.6 BUN/Creatinine Ratio 17.7 Random Glucose 89 mg/dl Calcium Level 8.6 mg/dl Total Bilirubin 1.3 mg/dl Aspartate Amino Transf (AST/SGOT) 43 U/L Alanine Aminotransferase (ALT/SGPT) 21 U/L Alkaline Phosphatase 69 U/L Total Protein 6.1 gm/dl Albumin 3.1 gm/dl Globulin 3.0 gm/dl Albumin/Globulin Ratio 1.0 Assessment and Plan This is a 61-year-old female with a history of alcohol abuse resulting in cirrhosis complicated by thrombocytopenia and ascites. It appears she was intolerant of high-dose diuretics as an outpatient which has improved since her recent admission. She does have hematochezia which I suspect is anorectal etiology. As no prior hemorrhoids were noted perhaps a repeat colonoscopy helpful to determine if she has AVMs or hemorrhoids not seen on her prior examination. Recommendations Patient to consider colonoscopy for Tuesday Renal function appears to be returning to baseline perhaps patient can be started on low-dose diuretics (aldactone 50 / lasix 20) Alcohol abstinence Low-sodium diet
[2017-03-12 11:24] VITALS: BP 90/50; PULSE 88; TEMP 36.5; O2SAT 97
[2017-03-12 15:19] VITALS: BP 85/63; PULSE 76; TEMP 36.6; O2SAT 92
[2017-03-12 19:00] VITALS: BP 89/53; PULSE 77; TEMP 36.9; O2SAT 95
--- NOTE | 2017-03-12 22:06 | Progress Note ---
Medicine Progress Note Date & Time of Visit: Mar 12, 2017 at 18:00 . Subjective Persistent abdominal discomfort. No nausea or vomiting. Loose stools on lactulose. No gross rectal bleeding today. No fever. No chest pain. No cough or SOB. . Objective Last 8 Hrs Date Time Temp Pulse Resp B/P (MAP) Pulse Ox O2 Delivery O2 Flow Rate FiO2 03/12/17 19:00 36.9 77 16 89/53 (65) 95 Room Air 03/12/17 16:00 Room Air 03/12/17 15:19 36.6 76 16 85/63 (70) 92 Room Air Physical Exam: General- no distress Eyes- anicteric Lungs- diffuse mild wheezing Heart- regular Abdomen- moderately distended, soft, nontender Extremities- trace pretibial edema; no calf tenderness Neuro- alert . Laboratory Results: Last 24 Hours Test 03/12/17 06:21 White Blood Count 12.58 K/uL Red Blood Count 2.93 M/uL Hemoglobin 9.1 g/dL Hematocrit 27.9 % Mean Corpuscular Volume 95.2 fL Mean Corpuscular Hemoglobin 31.1 pg Mean Corpuscular Hemoglobin Concent 32.6 g/dl Platelet Count 171 K/uL Mean Platelet Volume 10.6 fL Neutrophils (%) (Auto) 62.5 % Lymphocytes (%) (Auto) 22.7 % Monocytes (%) (Auto) 11.7 % Eosinophils (%) (Auto) 2.3 % Basophils (%) (Auto) 0.5 % Neutrophils # (Auto) 7.86 K/uL Lymphocytes # (Auto) 2.86 K/uL Monocytes # (Auto) 1.47 K/uL Eosinophils # (Auto) 0.29 K/uL Basophils # (Auto) 0.06 K/uL RDW Standard Deviation 54.8 fL RDW Coefficient of Variation 15.8 % Immature Granulocyte % (Auto) 0.3 % Immature Granulocyte # (Auto) 0.04 K/uL Sodium Level 143 mmol/L Potassium Level 3.8 mmol/L Chloride Level 118 mmol/L Carbon Dioxide Level 18 mmol/L Anion Gap 7.0 mmol/L Blood Urea Nitrogen 21 mg/dl Creatinine 1.21 mg/dl Est Creatinine Clear Calc Drug Dose 42.5 ml/min Estimated GFR () 56.3 Estimated GFR (Non- 48.6 BUN/Creatinine Ratio 17.7 Random Glucose 89 mg/dl Calcium Level 8.6 mg/dl Total Bilirubin 1.3 mg/dl Aspartate Amino Transf (AST/SGOT) 43 U/L Alanine Aminotransferase (ALT/SGPT) 21 U/L Alkaline Phosphatase 69 U/L Total Protein 6.1 gm/dl Albumin 3.1 gm/dl Globulin 3.0 gm/dl Albumin/Globulin Ratio 1.0 Assessment & Plan GI BLEEDING / ACUTE BLOOD LOSS ANEMIA 2 episodes of rectal bleeding yesterday. EGD did not show any bleeding varices or ulcers. Colonoscopy anticipated on Tuesday. Received 1 unit pRBCs. Hgb today = 9.1. Follow H/H. HYPOTENSION Blood pressure 86/49 at time of admission; BP's still relatively low. No apparent infection at this time. Diuretics held. Blood pressures seem to be improving with albumin infusions. Blood pressures historically run relatively low, but are still lower than baseline. Echo showed normal LVEF, no pericardial effusion, no hemodynamically significant valvular disease. Nursing staff notes that BP's usually higher in right arm than left. Hypotension probably related to advanced cirrhosis. Started midodrine. Follow. HEPATIC ENCEPHALOPATHY No apparent infection or GI bleeding at this time. Improved with lactulose. Had frequent loose stools with TID dosing; changed to BID. CIRRHOSIS / ASCITES History of hepatitis C and heavy alcohol consumption. Cirrhosis complicated by portal hypertension, ascites, encephalopathy. GI consulted. Paracenteses performed 03/04/17 and 03/07/17. RECENT SPONTANEOUS BACTERIAL PERITONITIS Culture of peritoneal fluid from 02/14/17 grew MRSA. Treated with IV vancomycin followed by oral doxycycline. Blood cultures and peritoneal fluid cultures this admission negative thus far. Afebrile. Continue doxycycline to complete course of therapy (stop date = 03/15). ACUTE KIDNEY INJURY Serum creatinine at time of admission 1.56, compared recent baseline of 0.8 - 1.0. Acute kidney injury could be secondary to volume depletion from diuretics, SBP, hepatorenal syndrome, recent TMP / sulfa. Nephrology consulted. Diuretics being held. Receiving albumin for volume expansion. Serum creatinine today = 1.21. Follow. COPD Pulmonary symptoms stable. Check 2-step pulse oximetry prior to discharge. ALCOHOL CONSUMPTION No signs/symptoms of alcohol withdrawal. Continue thiamine and gabapentin. VTE PROPHYLAXIS Initially received subcutaneous heparin. Heparin stopped due to GI bleed. SCD's. Ambulate as able. DISPOSITION Discharge disposition to be determined. [facility] follow-up with Dr. Khanna. GI follow-up with [facility]. . Current Inpatient Medications: Current Inpatient Medications Medications (Trade) Dose Ordered Sig/Shelby Route Start Time Stop Time Status Last Admin Dose Admin Ondansetron HCl (Zofran Inj) 4 mg Q6H PRN IV 03/03/17 17:15 04/02/17 17:14 03/10/17 19:57 4 MG Albuterol (Ventolin Hfa Inhaler) 2 puffs Q4 PRN INH 03/03/17 18:30 04/02/17 18:29 Folic Acid (Folvite Tab) 1 mg QAM PO 03/04/17 09:00 04/03/17 08:59 03/12/17 08:34 1 MG Gabapentin (Neurontin Cap) 300 mg TID PO 03/03/17 21:00 04/02/17 20:59 03/12/17 20:50 300 MG Hyoscyamine Sulfate (Levsin Tab) 0.125 mg QID PO 03/03/17 21:00 04/02/17 20:59 03/12/17 20:49 0.125 MG Levothyroxine Sodium (Synthroid Tab) 25 mcg DAILYBB PO 03/04/17 07:00 04/03/17 06:59 03/12/17 06:45 25 MCG Thiamine HCl (Vitamin B-1 Tab) 100 mg QAM PO 03/04/17 09:00 04/03/17 08:59 03/12/17 08:34 100 MG Doxycycline Hyclate (Vibramycin Cap) 100 mg BID PO 03/03/17 21:00 03/17/17 20:59 03/12/17 20:49 100 MG Albuterol/ Ipratropium (Duoneb) 3 ml Q4R PRN INH 03/03/17 18:30 04/02/17 18:29 Acetaminophen (Tylenol Tab) 325 mg Q6H PRN PO 03/03/17 20:30 04/02/17 20:29 Oxycodone HCl (Roxicodone Immediate Rel Tab) 5 mg Q6H PRN PO 03/03/17 20:30 03/17/17 20:29 03/12/17 20:48 5 MG Hydromorphone HCl (Dilaudid Inj) 0.5 mg Q4H PRN IV 03/03/17 20:30 03/17/17 20:29 Nicotine (Nicoderm Cq 21MG Patch) 1 patch QAM TD 03/04/17 09:00 04/03/17 08:59 03/12/17 08:34 1 PATCH Miscellaneous (Remove Nicoderm Patch) 1 ea HS N/A 03/04/17 21:00 04/03/17 20:59 03/12/17 20:47 1 EA Sodium Bicarbonate (Sodium Bicarbonate Tab) 650 mg TID PO 03/09/17 14:00 04/08/17 13:59 03/12/17 20:50 650 MG Simethicone (Mylicon Chew Tab) 80 mg Q6H PRN PO 03/10/17 20:15 04/09/17 20:14 03/10/17 21:49 80 MG Lactulose (Chronulac Syrup) 15 gm BID PO 03/11/17 21:00 04/10/17 20:59 03/12/17 08:36 15 GM Midodrine (Proamatine Tab) 2.5 mg BID@0800,1700 PO 03/11/17 08:00 04/10/17 07:59 03/12/17 16:13 2.5 MG
[2017-03-12 23:10] VITALS: BP 92/55; PULSE 84; TEMP 36.8; O2SAT 93
[2017-03-13 04:10] VITALS: BP 96/60; PULSE 95; TEMP 37.1; O2SAT 91
[2017-03-13] MEDS: LEVOTHYROXINE 25 MCG TAB PO SCH (05:43)
[2017-03-13] MEDS: OXYCODONE HCL IR 5 MG TAB (IMMEDIATE RELEASE) PO PRN (05:43)
[2017-03-13 06:47] LABS: MEAN CELL VOLUME 95.1 fL (80-100); MEAN CORPUSCULAR HEMOGLOBIN 30.8 pg (25-34); MEAN CORPUSCULAR HGB CONC 32.4 g/dl (32-36); MEAN PLATELET VOLUME 10.8 fL (7.4-10.4); PLATELET COUNT 184 K/uL (130-400); RED BLOOD COUNT 3.05 M/uL (4.2-5.4); WHITE BLOOD COUNT 15.97 K/uL (4.8-10.8)
[2017-03-13 07:15] LABS: BUN/CREATININE RATIO 18.5 (10-20); CALCIUM 8.6 mg/dl (8.5-10.1); CREATININE 1.09 mg/dl (0.60-1.20); MAGNESIUM 1.7 mg/dl (1.8-2.4); POTASSIUM 3.6 mmol/L (3.5-5.1)
[2017-03-13 08:03] VITALS: BP 90/53; PULSE 74; TEMP 37.7; O2SAT 98
[2017-03-13] MEDS: THIAMINE HCL 100 MG TAB PO SCH (08:16)
[2017-03-13] MEDS: DOXYCYCLINE HYCLATE 100 MG CAP PO SCH ×2 (08:16→20:25)
[2017-03-13] MEDS: HYOSCYAMINE SULFATE 0.125 MG SL TAB PO SCH ×4 (08:17→20:25)
[2017-03-13] MEDS: LACTULOSE SYRUP 10 GM/15 ML BTL 473 ML PO SCH ×2 (08:17→20:25)
[2017-03-13] MEDS: GABAPENTIN 300 MG CAP PO SCH ×3 (08:17→20:25)
[2017-03-13] MEDS: MIDODRINE 2.5 MG TAB PO SCH ×2 (08:17→16:56)
[2017-03-13] MEDS: SODIUM BICARBONATE 650 MG TAB PO SCH ×3 (08:18→20:25)
[2017-03-13] MEDS: NICOTINE 21 MG/24 HR TDSY TD SCH (08:18)
--- NOTE | 2017-03-13 09:59 | Gastroenterology Progress Note ---
Progress Note Date of Service: Mar 13, 2017 Subjective Pt evaluation today including: conversation w/ patient, physical exam The patient notes she has had no recurrence of hematochezia today. She denies having fevers chills or sweats. She is willing to undergo colonoscopy to further evaluate her recurrent episodes of hematochezia over the last few days. Review of Systems Constitutional: No chills, No sweats, No fatigue ENT: No hearing loss, No sore throat, No trouble swallowing Respiratory: No cough, No wheezing, No dyspnea at rest Abdomen: No pain, No constipation, No acolic stools Medications Current Inpatient Medications Medications (Trade) Dose Ordered Sig/Shelby Route Start Time Stop Time Status Last Admin Dose Admin Ondansetron HCl (Zofran Inj) 4 mg Q6H PRN IV 03/03/17 17:15 04/02/17 17:14 03/10/17 19:57 4 MG Albuterol (Ventolin Hfa Inhaler) 2 puffs Q4 PRN INH 03/03/17 18:30 04/02/17 18:29 Folic Acid (Folvite Tab) 1 mg QAM PO 03/04/17 09:00 04/03/17 08:59 03/13/17 08:16 1 MG Gabapentin (Neurontin Cap) 300 mg TID PO 03/03/17 21:00 04/02/17 20:59 03/13/17 08:17 300 MG Hyoscyamine Sulfate (Levsin Tab) 0.125 mg QID PO 03/03/17 21:00 04/02/17 20:59 03/13/17 08:17 0.125 MG Levothyroxine Sodium (Synthroid Tab) 25 mcg DAILYBB PO 03/04/17 07:00 04/03/17 06:59 03/13/17 05:43 25 MCG Thiamine HCl (Vitamin B-1 Tab) 100 mg QAM PO 03/04/17 09:00 04/03/17 08:59 03/13/17 08:16 100 MG Doxycycline Hyclate (Vibramycin Cap) 100 mg BID PO 03/03/17 21:00 03/17/17 20:59 03/13/17 08:16 100 MG Albuterol/ Ipratropium (Duoneb) 3 ml Q4R PRN INH 03/03/17 18:30 04/02/17 18:29 Acetaminophen (Tylenol Tab) 325 mg Q6H PRN PO 03/03/17 20:30 04/02/17 20:29 Oxycodone HCl (Roxicodone Immediate Rel Tab) 5 mg Q6H PRN PO 03/03/17 20:30 03/17/17 20:29 03/13/17 05:43 5 MG Hydromorphone HCl (Dilaudid Inj) 0.5 mg Q4H PRN IV 03/03/17 20:30 03/17/17 20:29 Nicotine (Nicoderm Cq 21MG Patch) 1 patch QAM TD 03/04/17 09:00 04/03/17 08:59 03/13/17 08:18 1 PATCH Miscellaneous (Remove Nicoderm Patch) 1 ea HS N/A 03/04/17 21:00 04/03/17 20:59 03/12/17 20:47 1 EA Sodium Bicarbonate (Sodium Bicarbonate Tab) 650 mg TID PO 03/09/17 14:00 04/08/17 13:59 03/13/17 08:18 650 MG Simethicone (Mylicon Chew Tab) 80 mg Q6H PRN PO 03/10/17 20:15 04/09/17 20:14 03/10/17 21:49 80 MG Lactulose (Chronulac Syrup) 15 gm BID PO 03/11/17 21:00 04/10/17 20:59 03/13/17 08:17 15 GM Midodrine (Proamatine Tab) 2.5 mg BID@0800,1700 PO 03/11/17 08:00 04/10/17 07:59 03/13/17 08:17 2.5 MG Objective Vital Signs Date Time Temp Pulse Resp B/P (MAP) Pulse Ox O2 Delivery O2 Flow Rate FiO2 03/13/17 08:03 37.7 74 18 90/53 (65) 98 03/13/17 08:00 Room Air 03/13/17 04:10 37.1 95 16 96/60 (72) 91 Room Air 03/13/17 04:00 Room Air 03/12/17 23:59 Room Air 03/12/17 23:10 36.8 84 18 92/55 (67) 93 Room Air 03/12/17 20:00 Room Air 03/12/17 19:00 36.9 77 16 89/53 (65) 95 Room Air 03/12/17 16:00 Room Air 03/12/17 15:19 36.6 76 16 85/63 (70) 92 Room Air 03/12/17 12:00 Room Air 03/12/17 11:24 36.5 88 18 90/50 (63) 97 Physical Exam General Appearance: no apparent distress Neck: no JVD Respiratory/Chest: + decreased breath sounds Cardiovascular: + systolic murmur Abdomen: soft, + distended (mild distention consistent with her history of ascites) Neurologic/Psych: oriented x 3 Laboratory Results Last 24 Hours Test 03/13/17 06:30 White Blood Count 15.97 K/uL Red Blood Count 3.05 M/uL Hemoglobin 9.4 g/dL Hematocrit 29.0 % Mean Corpuscular Volume 95.1 fL Mean Corpuscular Hemoglobin 30.8 pg Mean Corpuscular Hemoglobin Concent 32.4 g/dl RDW Standard Deviation 53.6 fL RDW Coefficient of Variation 15.6 % Platelet Count 184 K/uL Mean Platelet Volume 10.8 fL Sodium Level 141 mmol/L Potassium Level 3.6 mmol/L Chloride Level 115 mmol/L Carbon Dioxide Level 18 mmol/L Anion Gap 8.0 mmol/L Blood Urea Nitrogen 20 mg/dl Creatinine 1.09 mg/dl Est Creatinine Clear Calc Drug Dose 47.3 ml/min Estimated GFR () 63.9 Estimated GFR (Non- 55.1 BUN/Creatinine Ratio 18.5 Random Glucose 80 mg/dl Calcium Level 8.6 mg/dl Magnesium Level 1.7 mg/dl Assessment and Plan This is a 61-year-old female with a history of alcohol abuse resulting in cirrhosis complicated by thrombocytopenia and ascites. It appears she was intolerant of high-dose diuretics as an outpatient which has improved since her recent admission. She does have hematochezia which I suspect is anorectal etiology. As no prior hemorrhoids were noted perhaps a repeat colonoscopy helpful to determine if she has AVMs or hemorrhoids not seen on her prior examination. Recommendations Colonoscopy for Tuesday Renal function appears to be returning to baseline perhaps patient can be started on low-dose diuretics (aldactone 50 / lasix 20) Alcohol abstinence Liquid diet today
[2017-03-13 11:41] VITALS: BP 93/58; PULSE 82; TEMP 37.3; O2SAT 95
[2017-03-13 15:27] VITALS: BP 87/46; PULSE 76; TEMP 36.7; O2SAT 94
--- NOTE | 2017-03-13 15:30 | Progress Note ---
Medicine Progress Note Date & Time of Visit: Mar 13, 2017 at 15:30 . Subjective Ongoing abdominal discomfort, but does not feel that ascites is reaccumulating. No N/V. Loose stools without gross blood. Low grade temp this morning - 37.7. No cough. No urinary symptoms. . Objective Last 8 Hrs Date Time Temp Pulse Resp B/P (MAP) Pulse Ox O2 Delivery O2 Flow Rate FiO2 03/13/17 12:00 Room Air 03/13/17 11:41 37.3 82 16 93/58 (70) 95 03/13/17 08:03 37.7 74 18 90/53 (65) 98 03/13/17 08:00 Room Air Physical Exam: General- no distress Eyes- anicteric Lungs- diffuse mild wheezing Heart- regular Abdomen- moderately distended, soft, diffuse mild tenderness Extremities- trace pretibial edema; no calf tenderness Neuro- alert . Laboratory Results: Last 24 Hours Test 03/13/17 06:30 White Blood Count 15.97 K/uL Red Blood Count 3.05 M/uL Hemoglobin 9.4 g/dL Hematocrit 29.0 % Mean Corpuscular Volume 95.1 fL Mean Corpuscular Hemoglobin 30.8 pg Mean Corpuscular Hemoglobin Concent 32.4 g/dl RDW Standard Deviation 53.6 fL RDW Coefficient of Variation 15.6 % Platelet Count 184 K/uL Mean Platelet Volume 10.8 fL Sodium Level 141 mmol/L Potassium Level 3.6 mmol/L Chloride Level 115 mmol/L Carbon Dioxide Level 18 mmol/L Anion Gap 8.0 mmol/L Blood Urea Nitrogen 20 mg/dl Creatinine 1.09 mg/dl Est Creatinine Clear Calc Drug Dose 47.3 ml/min Estimated GFR () 63.9 Estimated GFR (Non- 55.1 BUN/Creatinine Ratio 18.5 Random Glucose 80 mg/dl Calcium Level 8.6 mg/dl Magnesium Level 1.7 mg/dl Assessment & Plan LOW GRADE TEMP Temp this morning = 37.7. No new symptoms; does not appear to be septic. WBC 15,970. Urine 03/10 growing, specimen from pharynx or esophagus, 03/11, stool 03/11 all growing Sada albicans. Start oral nystatin + IV fluconazole. Check repeat chest x-ray and UA. Consider repeat paracentesis if ongoing concerns. GI BLEEDING / ACUTE BLOOD LOSS ANEMIA 2 episodes of rectal bleeding yesterday. EGD did not show any bleeding varices or ulcers. Colonoscopy anticipated tomorrow. Received 1 unit pRBCs. Hgb today = 9.4. Follow H/H. HYPOTENSION Blood pressure 86/49 at time of admission; BP's still relatively low. No apparent infection at this time. Diuretics held. Blood pressures seem to be improving with albumin infusions. Blood pressures historically run relatively low, but are still lower than baseline. Echo showed normal LVEF, no pericardial effusion, no hemodynamically significant valvular disease. Nursing staff notes that BP's usually higher in right arm than left. Hypotension probably related to advanced cirrhosis. Started midodrine. Follow. HEPATIC ENCEPHALOPATHY No apparent infection or GI bleeding at this time. Improved with lactulose. Had frequent loose stools with TID dosing; changed to BID. CIRRHOSIS / ASCITES History of hepatitis C and heavy alcohol consumption. Cirrhosis complicated by portal hypertension, ascites, encephalopathy. GI consulted. Paracenteses performed 03/04/17 and 03/07/17. RECENT SPONTANEOUS BACTERIAL PERITONITIS Culture of peritoneal fluid from 02/14/17 grew MRSA. Treated with IV vancomycin followed by oral doxycycline. Blood cultures and peritoneal fluid cultures this admission negative thus far. Continue doxycycline to complete course of therapy (stop date = 03/15). ACUTE KIDNEY INJURY Serum creatinine at time of admission 1.56, compared recent baseline of 0.8 - 1.0. Acute kidney injury could be secondary to volume depletion from diuretics, SBP, hepatorenal syndrome, recent TMP / sulfa. Nephrology consulted. Diuretics being held. Receiving albumin for volume expansion. Serum creatinine today = 1.09. Follow. COPD Pulmonary symptoms stable. Check 2-step pulse oximetry prior to discharge. ALCOHOL CONSUMPTION No signs/symptoms of alcohol withdrawal. Continue thiamine and gabapentin. VTE PROPHYLAXIS Initially received subcutaneous heparin. Heparin stopped due to GI bleed. SCD's. Ambulate as able. DISPOSITION Discharge disposition to be determined. [facility] follow-up with Dr. Khanna. GI follow-up with [facility]. . Current Inpatient Medications: Current Inpatient Medications Medications (Trade) Dose Ordered Sig/Shelby Route Start Time Stop Time Status Last Admin Dose Admin Ondansetron HCl (Zofran Inj) 4 mg Q6H PRN IV 03/03/17 17:15 04/02/17 17:14 03/10/17 19:57 4 MG Albuterol (Ventolin Hfa Inhaler) 2 puffs Q4 PRN INH 03/03/17 18:30 04/02/17 18:29 Folic Acid (Folvite Tab) 1 mg QAM PO 03/04/17 09:00 04/03/17 08:59 03/13/17 08:16 1 MG Gabapentin (Neurontin Cap) 300 mg TID PO 03/03/17 21:00 04/02/17 20:59 03/13/17 13:19 300 MG Hyoscyamine Sulfate (Levsin Tab) 0.125 mg QID PO 03/03/17 21:00 04/02/17 20:59 03/13/17 13:19 0.125 MG Levothyroxine Sodium (Synthroid Tab) 25 mcg DAILYBB PO 03/04/17 07:00 04/03/17 06:59 03/13/17 05:43 25 MCG Thiamine HCl (Vitamin B-1 Tab) 100 mg QAM PO 03/04/17 09:00 04/03/17 08:59 03/13/17 08:16 100 MG Doxycycline Hyclate (Vibramycin Cap) 100 mg BID PO 03/03/17 21:00 03/17/17 20:59 03/13/17 08:16 100 MG Albuterol/ Ipratropium (Duoneb) 3 ml Q4R PRN INH 03/03/17 18:30 04/02/17 18:29 Acetaminophen (Tylenol Tab) 325 mg Q6H PRN PO 03/03/17 20:30 04/02/17 20:29 Oxycodone HCl (Roxicodone Immediate Rel Tab) 5 mg Q6H PRN PO 03/03/17 20:30 03/17/17 20:29 03/13/17 05:43 5 MG Hydromorphone HCl (Dilaudid Inj) 0.5 mg Q4H PRN IV 03/03/17 20:30 03/17/17 20:29 Nicotine (Nicoderm Cq 21MG Patch) 1 patch QAM TD 03/04/17 09:00 04/03/17 08:59 03/13/17 08:18 1 PATCH Miscellaneous (Remove Nicoderm Patch) 1 ea HS N/A 03/04/17 21:00 04/03/17 20:59 03/12/17 20:47 1 EA Sodium Bicarbonate (Sodium Bicarbonate Tab) 650 mg TID PO 03/09/17 14:00 04/08/17 13:59 03/13/17 13:19 650 MG Simethicone (Mylicon Chew Tab) 80 mg Q6H PRN PO 03/10/17 20:15 04/09/17 20:14 03/10/17 21:49 80 MG Lactulose (Chronulac Syrup) 15 gm BID PO 03/11/17 21:00 04/10/17 20:59 03/13/17 08:17 15 GM Midodrine (Proamatine Tab) 2.5 mg BID@0800,1700 PO 03/11/17 08:00 04/10/17 07:59 03/13/17 08:17 2.5 MG Polyethylene Glycol/ Electrolytes (Golytely Soln) 16 dose TODAY@1600 PO 03/13/17 16:00 03/13/17 23:59
[2017-03-13] MEDS ORDERED: LAVAGE SOLUTION 4000ML PO SCH (16:00)
[2017-03-13 16:37] LABS: URINE APPEARANCE CLEAR (CLEAR); URINE BILIRUBIN NEG (NEG); URINE COLOR DK YELLOW; URINE EPITHELIAL CELL AUTO >30 /lpf (0-5); URINE NITRITE NEG (NEG); URINE PH 5.5 (4.5-7.5); URINE SPECIFIC GRAVITY 1.022 (1.000-1.030); UROBILINOGEN NEG (NEG); ZZUR CULT IF INDIC CLEAN CATCH NO
[2017-03-13 16:47] LABS: MANUAL MICROSCOPIC REQUIRED? NO; REVIEW REQ? NO
[2017-03-13 19:40] VITALS: BP 94/52; PULSE 71; TEMP 36.6; O2SAT 96
[2017-03-13] MEDS ORDERED: MAGNESIUM SULFATE 1GM / D5W 1 GM in PREMIXED IN D5W 100 ML IV ONE (20:00)
--- NOTE | 2017-03-13 20:07 | DIAGNOSTIC IMAGING REPORT ---
CHEST 2 VIEWS ROUTINE CLINICAL HISTORY: fever dyspnea COMPARISON STUDY: 03/03/2017 FINDINGS: Lungs remain generally clear. Mild bibasilar interstitial prominence is considered unaltered. No evidence for cardiac enlargement. IMPRESSION: Emphysematous change. Chronic basilar fibrosis. No acute process. The above report was generated using voice recognition software. It may contain grammatical, syntax or spelling errors. Electronically signed by: Sai Juarez M.D. 03/13/2017 8:05 PM Dictated Date/Time: 03/13/2017 8:05 PM
[2017-03-13] MEDS: NYSTATIN SUSP 500,000 U/5 ML UDC PO SCH (20:24)
[2017-03-13] MEDS: FLUCONAZOLE / NSS 100 MG in PREMIXED NSS 50 ML IV SCH (20:26)
[2017-03-13 23:35] VITALS: BP 92/50; PULSE 86; TEMP 36.8; O2SAT 93
[2017-03-14] VITALS (10 sets, daily range): BP systolic 88–138; BP diastolic 55–76; PULSE 78–87; TEMP 36.3–36.7; O2SAT 95–99
[2017-03-14 07:40] LABS: HEMATOCRIT 31.7 % (37-47); MEAN CELL VOLUME 93.8 fL (80-100); MEAN CORPUSCULAR HEMOGLOBIN 31.4 pg (25-34); MEAN CORPUSCULAR HGB CONC 33.4 g/dl (32-36); MEAN PLATELET VOLUME 11.3 fL (7.4-10.4); PLATELET COUNT 192 K/uL (130-400); RED BLOOD COUNT 3.38 M/uL (4.2-5.4); WHITE BLOOD COUNT 11.72 K/uL (4.8-10.8)
[2017-03-14] MEDS: LEVOTHYROXINE 25 MCG TAB PO SCH (07:47)
[2017-03-14] MEDS: MIDODRINE 2.5 MG TAB PO SCH ×2 (07:47→17:59)
[2017-03-14] MEDS: NYSTATIN SUSP 500,000 U/5 ML UDC PO SCH ×4 (07:48→20:55)
[2017-03-14] MEDS: THIAMINE HCL 100 MG TAB PO SCH (07:48)
[2017-03-14] MEDS: DOXYCYCLINE HYCLATE 100 MG CAP PO SCH (07:48)
[2017-03-14] MEDS: GABAPENTIN 300 MG CAP PO SCH ×3 (07:48→20:55)
[2017-03-14] MEDS: HYOSCYAMINE SULFATE 0.125 MG SL TAB PO SCH ×4 (07:48→20:55)
[2017-03-14] MEDS: LACTULOSE SYRUP 10 GM/15 ML BTL 473 ML PO SCH ×2 (07:48→20:55)
[2017-03-14] MEDS: SODIUM BICARBONATE 650 MG TAB PO SCH ×3 (07:48→20:55)
[2017-03-14] MEDS: NICOTINE 21 MG/24 HR TDSY TD SCH (07:49)
[2017-03-14 08:13] LABS: BUN/CREATININE RATIO 17.5 (10-20); CALCIUM 9.2 mg/dl (8.5-10.1); CREATININE 1.07 mg/dl (0.60-1.20); POTASSIUM 3.6 mmol/L (3.5-5.1)
[2017-03-14] MEDS ORDERED: SODIUM CHLORIDE 0.9% 500ML 500 ML IV ONE (09:00)
--- NOTE | 2017-03-14 09:02 | History & Physical Bridge Note ---
H&P Re-Evaluation Bridge Note: I have examined the patient, reviewed the History & Physical and in the interval since the performance of the History & Physical I have noted the following changes of clinical significance: She feels better today, no rectal bleeding over the weekend. Has mild abdominal discomfort from the ascites. She is prepped for colonoscopy. I explained to her the risk, benefit and alternatives of the procedure including bleeding, perforation and infection and verbalized understanding and agreed.
[2017-03-14] MEDS ORDERED: ATROPINE SULFATE 0.1 MG/ML 5ML SYR IV PRN (09:15)
[2017-03-14] MEDS ORDERED: EpHEDrine SULFATE INJ 50 MG/ML AMP IV PRN (09:15)
--- NOTE | 2017-03-14 09:16 | Nephrology Progress Note ---
Nephrology Progress Note Date of Service: Mar 14, 2017. Subjective no further BRBM overnight. c/o diffuse abd pain, much worse w/ maneuvering denice rolling in bed. denies dyspnea, LE edema. For colonoscopy today and possibly for paracentesis as EGD last week was unremarkable. on fluconazole for stool/ esophageal/urinary ernesto. Objective Date Time Temp Pulse Resp B/P (MAP) Pulse Ox O2 Delivery O2 Flow Rate FiO2 03/14/17 08:50 36.8 85 16 99/63 (75) 98 Room Air 03/14/17 07:44 36.5 85 20 88/55 (66) 95 Room Air 03/14/17 04:00 Room Air 03/14/17 03:17 36.7 86 21 95/63 (74) 95 Room Air 03/13/17 23:59 Room Air 03/13/17 23:35 36.8 86 18 92/50 (64) 93 Room Air 03/13/17 20:00 Room Air 03/13/17 19:40 36.6 71 18 94/52 (66) 96 Room Air 03/13/17 16:00 Room Air 03/13/17 15:27 36.7 76 16 87/46 (60) 94 Room Air 03/13/17 12:00 Room Air 03/13/17 11:41 37.3 82 16 93/58 (70) 95 Physical Exam: GENERAL: Awake, alert, oriented x3. on RA; moderate distress from abdominal discomfort, lying flat EYES: No scleral icterus. ENT: Moist mucous membranes. NECK: Supple. PULMONARY: Clear w/ diminished air entry throughout. CARDIAC: Regularly spaced beats in 90s ABDOMEN: Soft. today still more apparent distention, + fluid wave; +BS, no calero. diffuse TT moderate palpation w/o guarding. EXTREMITIES: No clubbing, cyanosis or edema. NEUROLOGICALLY: silveira, fluent speech. DERM: No rash or ulcers noted. Current Inpatient Medications Medications (Trade) Dose Ordered Sig/Shelby Route Start Time Stop Time Status Last Admin Dose Admin Ondansetron HCl (Zofran Inj) 4 mg Q6H PRN IV 03/03/17 17:15 04/02/17 17:14 03/10/17 19:57 4 MG Albuterol (Ventolin Hfa Inhaler) 2 puffs Q4 PRN INH 03/03/17 18:30 11/18/17 18:29 Folic Acid (Folvite Tab) 1 mg QAM PO 03/04/17 09:00 04/03/17 08:59 03/14/17 07:47 1 MG Gabapentin (Neurontin Cap) 300 mg TID PO 03/03/17 21:00 04/02/17 20:59 03/14/17 07:48 300 MG Hyoscyamine Sulfate (Levsin Tab) 0.125 mg QID PO 03/03/17 21:00 04/02/17 20:59 03/14/17 07:48 0.125 MG Levothyroxine Sodium (Synthroid Tab) 25 mcg DAILYBB PO 03/04/17 07:00 04/03/17 06:59 03/14/17 07:47 25 MCG Thiamine HCl (Vitamin B-1 Tab) 100 mg QAM PO 03/04/17 09:00 04/03/17 08:59 03/14/17 07:48 100 MG Doxycycline Hyclate (Vibramycin Cap) 100 mg BID PO 03/03/17 21:00 03/17/17 20:59 03/14/17 07:48 100 MG Albuterol/ Ipratropium (Duoneb) 3 ml Q4R PRN INH 03/03/17 18:30 04/02/17 18:29 Acetaminophen (Tylenol Tab) 325 mg Q6H PRN PO 03/03/17 20:30 04/02/17 20:29 Oxycodone HCl (Roxicodone Immediate Rel Tab) 5 mg Q6H PRN PO 03/03/17 20:30 03/17/17 20:29 03/13/17 05:43 5 MG Hydromorphone HCl (Dilaudid Inj) 0.5 mg Q4H PRN IV 03/03/17 20:30 03/17/17 20:29 Nicotine (Nicoderm Cq 21MG Patch) 1 patch QAM TD 03/04/17 09:00 04/03/17 08:59 03/14/17 07:49 1 PATCH Miscellaneous (Remove Nicoderm Patch) 1 ea HS N/A 03/04/17 21:00 04/03/17 20:59 03/13/17 20:26 1 EA Sodium Bicarbonate (Sodium Bicarbonate Tab) 650 mg TID PO 03/09/17 14:00 04/08/17 13:59 03/14/17 07:48 650 MG Simethicone (Mylicon Chew Tab) 80 mg Q6H PRN PO 03/10/17 20:15 04/09/17 20:14 03/10/17 21:49 80 MG Lactulose (Chronulac Syrup) 15 gm BID PO 03/11/17 21:00 04/10/17 20:59 03/14/17 07:48 15 GM Midodrine (Proamatine Tab) 2.5 mg BID@0800,1700 PO 03/11/17 08:00 04/10/17 07:59 03/14/17 07:47 2.5 MG Nystatin (Mycostatin Susp) 5 ml QID PO 03/13/17 21:00 03/23/17 20:59 03/14/17 07:48 5 ML Fluconazole/ Sodium Chloride 100 mg/Prmx 50 ml @ 100 mls/hr Q24H IV 03/13/17 20:00 03/23/17 19:29 03/13/17 20:26 100 MLS/HR Last 24 Hours Test 03/13/17 16:25 03/14/17 07:08 Urine Color DK YELLOW Urine Appearance CLEAR Urine pH 5.5 Urine Specific Tilly 1.022 Urine Protein TRACE Urine Glucose (UA) NEG Urine Ketones TRACE Urine Occult Blood NEG Urine Nitrite NEG Urine Bilirubin NEG Urine Urobilinogen NEG Urine Leukocyte Esterase TRACE Urine WBC (Auto) 5-10 /hpf Urine RBC (Auto) 0-4 /hpf Urine Hyaline Casts (Auto) 5-10 /lpf Urine Epithelial Cells (Auto) >30 /lpf Urine Bacteria (Auto) NEG White Blood Count 11.72 K/uL Red Blood Count 3.38 M/uL Hemoglobin 10.6 g/dL Hematocrit 31.7 % Mean Corpuscular Volume 93.8 fL Mean Corpuscular Hemoglobin 31.4 pg Mean Corpuscular Hemoglobin Concent 33.4 g/dl RDW Standard Deviation 52.2 fL RDW Coefficient of Variation 15.2 % Platelet Count 192 K/uL Mean Platelet Volume 11.3 fL Sodium Level 142 mmol/L Potassium Level 3.6 mmol/L Chloride Level 111 mmol/L Carbon Dioxide Level 20 mmol/L Anion Gap 11.0 mmol/L Blood Urea Nitrogen 19 mg/dl Creatinine 1.07 mg/dl Est Creatinine Clear Calc Drug Dose 48.3 ml/min Estimated GFR () 65.3 Estimated GFR (Non- 56.4 BUN/Creatinine Ratio 17.5 Random Glucose 79 mg/dl Calcium Level 9.2 mg/dl Procalcitonin 0.93 ng/ml Assessment & Plan 61 y/o F w/ chronic HB/CV, EtOH and tobacco abuse, COPD, recent admission for S aureus peritonitis > bacteremia readmitted w/ weakness, lightheadedness, N/V, confusion and found to have creatinine 1.6 on presentation 03/03; had been 1.0 at recent 02/22 d/c, w/ baseline 0.8-0.9 same timeframe. on 03/11 got brbpr w/ unremarkable EGD. Multifactorial ATN with creatinine of 1.5 with a baseline in early February of 0.8. Recovering w/ better bp, slowing hematochezia, holding bactrim/diuretics; tx of ernesto but at risk to worsen still Was rx'd bactrim prior to admission (started 03/01 by pcp for bacteremia; had been d/c from hospital on doxycycline; bactrim had been filled at oupt pharmacy but not clear if was taking); creatinine on 02/25 was already on upward trend at 1.3 as outpt. uirine sediment contaminated, has yeast; else bland. last albumin dose was 03/10 and renal function continues to improve/remains stable -intravascular volume depletion in state of chronic total body overload, stable but no consistent improvement>> now w/ periodic active bleeding -daily bmp, cbc -all cxs to date remain negative >>>>>if no paracentesis today, reasonable to start aldactone 25 mg/lasix 10 mg 2 daily doses at least 4h apart>> needs quite low doses d/t hypotension; could also consider increasing midodrine to 5 mg bid while doing this; if she does have a paracentesis, would defer diuretics until at least tomorrow and would ensure she receives more albumin hypokalemia in setting of significant diarrhea; hovering mid 3's >not currently on K supplements; monitor for need as diuretics resumed hematochezia egd negative; GI following closely; for colonoscopy today Hypotension, w/ SBP 60-90s this admission and slow progressive worsening past months -no outpt [facility] october >> 88/50; prior to that in 2016 through September SBP is 100-130. -SBP during admission early February 60-80s systolic, similar to current; may well reflect progression of ESLD -note that she was also admitted here in 10/2016 w/ c/o hypotension and sbp were higher 80s minimum at that time ->>>TTE w/ mitral calcification but no severe valvular or ventricular dysfunction or wma -on trial of low dose midodrine, consider increase as above -monitor H/H --->>>>when taking po if diuretics resumed, recommend 1.5L daily fluid limit and <2 gm/day Na diet -cont albumin as above Hyperchloremic metabolic acidosis Likely from 11BM past several days -cont sodium bicarb po low dose -avoid NS or chloride rich solutions RUQ/abd pain still more prominent today as ascites worsens Appreciate consult; will follow with you. Unclear how accurate I's and O's are, however, appears to be dropping since admission. The patient's volume status though is much improved with the 2 paracenteses with appropriate albumin resuscitation. I do not feel this is hepatorenal given the fact that his urine sodium is greater than 10; however, the patient still could have an element of intravascular volume depletion. With her lungs are clear and abdomen soft and volume status much improved, we would like to give albumin resuscitation for 24 hours to see if we can improve the patient's kidney function; however, the patient likely to require diuretics to help control the recurrent ascites and may need to settle for a higher creatinine. This may unfortunately be patient's new baseline; however, we will attempt more aggressive albumin resuscitation to see if we can o
[2017-03-14] MEDS ORDERED: ONDANSETRON INJ 2 MG/ML 2 ML VIAL IV PRN (09:45)
--- NOTE | 2017-03-14 09:51 | Anesthesiology Progress Note ---
Anesthesia Post Op Note Date & Time Mar 14, 2017 at 09:50 Vital Signs Pain Intensity: 0 Vital Signs Past 12 Hours Date Time Temp Pulse Resp B/P (MAP) Pulse Ox O2 Delivery O2 Flow Rate FiO2 03/14/17 08:50 36.8 85 16 99/63 (75) 98 Room Air 03/14/17 08:01 95 Room Air 03/14/17 07:44 36.5 85 20 88/55 (66) 95 Room Air 03/14/17 04:00 Room Air 03/14/17 03:17 36.7 86 21 95/63 (74) 95 Room Air 03/13/17 23:59 Room Air 03/13/17 23:35 36.8 86 18 92/50 (64) 93 Room Air Notes Mental Status: alert / awake / arousable, participated in evaluation Pt Amnestic to Procedure: Yes Nausea / Vomiting: adequately controlled Pain: adequately controlled Airway Patency, RR, SpO2: stable & adequate BP & HR: stable & adequate Hydration State: stable & adequate Anesthetic Complications: no major complications apparent
[2017-03-14] MEDS ORDERED: FUROSEMIDE 20 MG TAB PO ONE (10:30)
[2017-03-14] MEDS ORDERED: SPIRONOLACTONE 25 MG TAB PO ONE (10:30)
--- NOTE | 2017-03-14 10:30 | GI REPORT ---
Procedure Date: 03/14/2017 9:02 AM Procedure: Colonoscopy Indications: Rectal bleeding Medicines: Monitored Anesthesia Care Complications: No immediate complications. Estimated Blood Loss: Estimated blood loss: none. Procedure: Pre-Anesthesia Assessment: - Prior to the procedure, a History and Physical was performed, and patient medications and allergies were reviewed. The patient is competent. The risks and benefits of the procedure and the sedation options and risks were discussed with the patient. All questions were answered and informed consent was obtained. Patient identification and proposed procedure were verified by the physician, the nurse and the histological illustrator in the procedure room. Mental Status Examination: alert and oriented. Airway Examination: normal oropharyngeal airway and neck mobility. Respiratory Examination: clear to auscultation. CV Examination: normal. ASA Grade Assessment: IV - A patient with severe systemic disease that is a constant threat to life. After reviewing the risks and benefits, the patient was deemed in satisfactory condition to undergo the procedure. The anesthesia plan was to use monitored anesthesia care (MAC). Immediately prior to administration of medications, the patient was re-assessed for adequacy to receive sedatives. The heart rate, respiratory rate, oxygen saturations, blood pressure, adequacy of pulmonary ventilation, and response to care were monitored throughout the procedure. The physical status of the patient was re-assessed after the procedure. After I obtained informed consent, the scope was passed under direct vision. Throughout the procedure, the patient's blood pressure, pulse, and oxygen saturations were monitored continuously. The Scope was introduced through the anus and advanced to the cecum, identified by appendiceal orifice and ileocecal valve. The colonoscopy was performed without difficulty. The patient tolerated the procedure well. The quality of the bowel preparation was good. The ileocecal valve, appendiceal orifice, and rectum were photographed. Findings: The digital rectal exam was normal. The perianal exam findings include skin tags. Non-bleeding internal hemorrhoids were found during retroflexion. The hemorrhoids were small. Impression: - Perianal skin tags found on perianal exam. - Non-bleeding internal hemorrhoids. - No specimens collected. Recommendation: - [facility]. - Resume previous diet. - Repeat colonoscopy in 5-10 years for screening purposes. - Preparation H ointment: Apply externally BID PRN. Jenise Gale MD 03/14/2017 9:45:41 AM This report has been signed electronically. Note Initiated On: 03/14/2017 9:02 AM I attest to the content of the Intraoperative Record and orders documented therein, exceptions below
--- NOTE | 2017-03-14 10:52 | Progress Note ---
Progress Note Date of Service Mar 14, 2017. (Susannah Clifford ., FATUMA) Progress Note Pt evaluated prior to colonoscopy this AM. Has had some abdominal discomfort, twinges of pain, generalized. No further rectal bleeding. Had some dizziness this AM. EGD w/ thrush, will start PO fluconazole 200 mg daily x 14 days. Pt should stop doxycycline. Can repeat paracentesis, diagnostic therapeutic today. (Susannah Clifford ., FATUMA) I performed a history and physical examination of the patient, I have discussed the patient's management with Susannah. Please refer to the physician pediatric physical therapy assistant' s note for the documented findings and plan of care. Patient underwent colonoscopy which showed hemorrhoids hence this is likely the source of intermittent rectal bleeding. Monitor H/H. Perform abdominal paracentesis. (Jenise Gale M.D.)
[2017-03-14 11:56] LABS: INR 1.4 (0.9-1.1)
[2017-03-14] MEDS: FUROSEMIDE 20 MG TAB PO SCH (17:59)
[2017-03-14] MEDS: OXYCODONE HCL IR 5 MG TAB (IMMEDIATE RELEASE) PO PRN (18:05)
[2017-03-14] MEDS: FLUCONAZOLE / NSS 100 MG in PREMIXED NSS 50 ML IV SCH (20:55)
--- NOTE | 2017-03-14 21:23 | Progress Note ---
Medicine Progress Note Date & Time of Visit: Mar 14, 2017 at 1600 . Subjective Underwent colonoscopy earlier today. The procedure went well. Found to have internal hemorrhoids, no significant pathology. Persistent abdominal discomfort, mostly epigastric. No fever. No chest pain. No cough or shortness of breath. . Objective Vital Signs Label Value Date Time Patient Temperature 36.5 C. 03/14/17743 Pulse 85 03/14/17743 Location Right Finger Respiratory Rate 20 03/14/17743 Blood Pressure Assessment 88/55 (66) 03/14/17743 Bedside Pulse Oximetry 95 % 03/14/17743 Item Value Date Time Oxygen Delivery Method Room Air 03/14/17743 Physical Exam: General- lying in bed, no distress Eyes- anicteric Lungs- diffuse mild wheezing Heart- regular Abdomen- moderately distended, soft, mild epigastric tenderness Extremities- trace pretibial edema; no calf tenderness Neuro- alert . Laboratory Results: Last 24 Hours Test 03/14/17 07:08 03/14/17 11:18 White Blood Count 11.72 K/uL Red Blood Count 3.38 M/uL Hemoglobin 10.6 g/dL Hematocrit 31.7 % Mean Corpuscular Volume 93.8 fL Mean Corpuscular Hemoglobin 31.4 pg Mean Corpuscular Hemoglobin Concent 33.4 g/dl RDW Standard Deviation 52.2 fL RDW Coefficient of Variation 15.2 % Platelet Count 192 K/uL Mean Platelet Volume 11.3 fL Sodium Level 142 mmol/L Potassium Level 3.6 mmol/L Chloride Level 111 mmol/L Carbon Dioxide Level 20 mmol/L Anion Gap 11.0 mmol/L Blood Urea Nitrogen 19 mg/dl Creatinine 1.07 mg/dl Est Creatinine Clear Calc Drug Dose 48.3 ml/min Estimated GFR () 65.3 Estimated GFR (Non- 56.4 BUN/Creatinine Ratio 17.5 Random Glucose 79 mg/dl Calcium Level 9.2 mg/dl Procalcitonin 0.93 ng/ml Prothrombin Time 15.0 SECONDS Prothromb Time International Ratio 1.4 Assessment & Plan LOW GRADE TEMP Temp yesterday was 37.7. No new symptoms; does not appear to be septic. WBC was 15,970. No acute infiltrates on chest x-ray. Urine 03/10, specimen from pharynx or esophagus 03/11, stool 03/11 all growing Sada albicans. Started oral nystatin + IV fluconazole. Consider repeat paracentesis if ongoing concerns. GI BLEEDING / ACUTE BLOOD LOSS ANEMIA 2 episodes of rectal bleeding yesterday. EGD did not show any bleeding varices or ulcers. Colonoscopy anticipated tomorrow. Received 1 unit pRBCs. Hgb today = 10.6. Follow H/H. HYPOTENSION Blood pressure 86/49 at time of admission; BP's still relatively low. No apparent infection at this time. Diuretics held. Blood pressures seem to be improving with albumin infusions. Blood pressures historically run relatively low, but are still lower than baseline. Echo showed normal LVEF, no pericardial effusion, no hemodynamically significant valvular disease. Nursing staff notes that BP's usually higher in right arm than left. Hypotension probably related to advanced cirrhosis. Started midodrine 2.5 mg BID. Blood pressure this morning 88/55. Increase midodrine to 5 mg BID. Follow. HEPATIC ENCEPHALOPATHY No apparent infection or GI bleeding at this time. Improved with lactulose. Had frequent loose stools with TID dosing; changed to BID. CIRRHOSIS / ASCITES History of hepatitis C and heavy alcohol consumption. Cirrhosis complicated by portal hypertension, ascites, encephalopathy. GI consulted. Paracenteses performed 03/04/17 and 03/07/17. Repeat paracentesis anticipated tomorrow. RECENT SPONTANEOUS BACTERIAL PERITONITIS Culture of peritoneal fluid from 02/14/17 grew MRSA. Treated with IV vancomycin followed by oral doxycycline. Blood cultures and peritoneal fluid cultures this admission negative thus far. ACUTE KIDNEY INJURY Serum creatinine at time of admission 1.56, compared recent baseline of 0.8 - 1.0. Acute kidney injury could be secondary to volume depletion from diuretics, SBP, hepatorenal syndrome, recent TMP / sulfa. Nephrology consulted. Diuretics being held. Receiving albumin for volume expansion. Serum creatinine today = 1.07. Follow. COPD Pulmonary symptoms stable. Check 2-step pulse oximetry prior to discharge. ALCOHOL CONSUMPTION No signs/symptoms of alcohol withdrawal. Continue thiamine and gabapentin. VTE PROPHYLAXIS Initially received subcutaneous heparin. Heparin stopped due to GI bleed. SCD's. Ambulate as able. DISPOSITION Discharge disposition to be determined. May need skilled care or rehabilitation. Family Medicine follow-up with Dr. Khanna. [facility] . Current Inpatient Medications: Current Inpatient Medications Medications (Trade) Dose Ordered Sig/Shelby Route Start Time Stop Time Status Last Admin Dose Admin Ondansetron HCl (Zofran Inj) 4 mg Q6H PRN IV 03/03/17 17:15 04/02/17 17:14 03/10/17 19:57 4 MG Albuterol (Ventolin Hfa Inhaler) 2 puffs Q4 PRN INH 03/03/17 18:30 04/02/17 18:29 Folic Acid (Folvite Tab) 1 mg QAM PO 03/04/17 09:00 04/03/17 08:59 03/14/17 07:47 1 MG Gabapentin (Neurontin Cap) 300 mg TID PO 03/03/17 21:00 04/02/17 20:59 03/14/17 20:55 300 MG Hyoscyamine Sulfate (Levsin Tab) 0.125 mg QID PO 03/03/17 21:00 04/02/17 20:59 03/14/17 20:55 0.125 MG Levothyroxine Sodium (Synthroid Tab) 25 mcg DAILYBB PO 03/04/17 07:00 04/03/17 06:59 03/14/17 07:47 25 MCG Thiamine HCl (Vitamin B-1 Tab) 100 mg QAM PO 03/04/17 09:00 04/03/17 08:59 03/14/17 07:48 100 MG Albuterol/ Ipratropium (Duoneb) 3 ml Q4R PRN INH 03/03/17 18:30 04/02/17 18:29 Acetaminophen (Tylenol Tab) 325 mg Q6H PRN PO 03/03/17 20:30 04/02/17 20:29 Oxycodone HCl (Roxicodone Immediate Rel Tab) 5 mg Q6H PRN PO 03/03/17 20:30 03/17/17 20:29 03/14/17 18:05 5 MG Hydromorphone HCl (Dilaudid Inj) 0.5 mg Q4H PRN IV 03/03/17 20:30 03/17/17 20:29 Nicotine (Nicoderm Cq 21MG Patch) 1 patch QAM TD 03/04/17 09:00 04/03/17 08:59 03/14/17 07:49 1 PATCH Miscellaneous (Remove Nicoderm Patch) 1 ea HS N/A 03/04/17 21:00 04/03/17 20:59 03/14/17 20:55 1 EA Sodium Bicarbonate (Sodium Bicarbonate Tab) 650 mg TID PO 03/09/17 14:00 04/08/17 13:59 03/14/17 20:55 650 MG Simethicone (Mylicon Chew Tab) 80 mg Q6H PRN PO 03/10/17 20:15 04/09/17 20:14 03/10/17 21:49 80 MG Lactulose (Chronulac Syrup) 15 gm BID PO 03/11/17 21:00 04/10/17 20:59 03/14/17 20:55 15 GM Nystatin (Mycostatin Susp) 5 ml QID PO 03/13/17 21:00 03/23/17 20:59 03/14/17 20:55 5 ML Fluconazole/ Sodium Chloride 100 mg/Prmx 50 ml @ 100 mls/hr Q24H IV 03/13/17 20:00 03/23/17 19:29 03/14/17 20:55 100 MLS/HR Sodium Chloride 500 ml @ 15 mls/hr Q24H ONCE IV 03/14/17 09:00 03/15/17 08:59 Ondansetron HCl (Zofran Inj) 4 mg ONE PRN IV 03/14/17 09:45 03/14/17 23:59 Midodrine (Proamatine Tab) 5 mg BID@0800,1700 PO 03/14/17 17:00 04/10/17 07:59 03/14/17 17:59 5 MG Spironolactone (Aldactone Tab) 25 mg QAM PO 03/15/17 09:00 04/14/17 08:59 Furosemide (Lasix Tab) 10 mg BID17 PO 03/14/17 17:00 04/13/17 16:59 03/14/17 17:59 10 MG
[2017-03-15] VITALS (13 sets, daily range): BP systolic 81–97; BP diastolic 46–61; PULSE 70–86; TEMP 36.4–36.8; O2SAT 91–100
[2017-03-15] MEDS: LEVOTHYROXINE 25 MCG TAB PO SCH (05:37)
[2017-03-15 06:47] LABS: HEMATOCRIT 26.7 % (37-47); MEAN CELL VOLUME 92.7 fL (80-100); MEAN CORPUSCULAR HEMOGLOBIN 30.6 pg (25-34); MEAN PLATELET VOLUME 11.8 fL (7.4-10.4); PLATELET COUNT 160 K/uL (130-400); RED BLOOD COUNT 2.88 M/uL (4.2-5.4); WHITE BLOOD COUNT 10.72 K/uL (4.8-10.8)
[2017-03-15 07:03] LABS: BUN/CREATININE RATIO 16.4 (10-20); CALCIUM 8.1 mg/dl (8.5-10.1); CREATININE 1.07 mg/dl (0.60-1.20); POTASSIUM 3.3 mmol/L (3.5-5.1)
[2017-03-15 07:06] LABS: ALB/GLOB RATIO 0.9 (0.9-2)
[2017-03-15] MEDS: NICOTINE 21 MG/24 HR TDSY TD SCH (08:10)
[2017-03-15] MEDS: MIDODRINE 2.5 MG TAB PO SCH ×2 (08:11→16:13)
--- NOTE | 2017-03-15 08:27 | Nephrology Progress Note ---
Nephrology Progress Note Date of Service: Mar 15, 2017. Subjective 61yo female who tolerated her colonoscopy well, found to have hemorrhoids. pt tentatively scheduled for paracentesis today. restarted diuretics at a low dose secondary to reaccumulation of ascites with concominant low blood pressures although asymptomatic. pt continues to voice frustration with her prolonged hospitilization and being told different medical problems throughout the hospitilization. would like to go home as soon as possible. Objective Date Time Temp Pulse Resp B/P (MAP) Pulse Ox O2 Delivery O2 Flow Rate FiO2 03/15/17 07:42 36.7 80 18 81/51 (61) 95 Nasal Cannula 2.0 03/15/17 04:00 Nasal Cannula 2.0 03/15/17 03:56 36.8 80 17 83/52 (62) 98 Nasal Cannula 2.0 Humidified Oxygen 03/15/17 00:24 36.5 82 18 97/61 (73) 100 Nasal Cannula 2.0 Humidified Oxygen 03/15/17 00:00 Nasal Cannula 2.0 03/14/17 20:00 Nasal Cannula 2.0 03/14/17 19:34 36.7 78 16 91/55 (67) 99 Nasal Cannula 2.0 03/14/17 16:10 95 Room Air 03/14/17 16:02 36.4 80 20 91/55 (67) 96 Room Air 03/14/17 15:36 96 Nasal Cannula 2.0 03/14/17 12:22 95 Room Air 03/14/17 10:43 36.3 87 20 104/61 (75) 03/14/17 10:05 85 18 95/62 (73) 99 Room Air 03/14/17 09:52 83 16 93/56 (68) 92 Room Air 03/14/17 09:37 80 16 99/63 (75) 98 Room Air 03/14/17 08:50 36.8 85 16 99/63 (75) 98 Room Air Physical Exam: General-aaox3 Eyes-no scleral icterus ENT-mmm Neck-supple Lungs-cta Heart-rrr Abdomen-bs+/+ascites Extremities-no c/c/e Neuro-nonfocal Current Inpatient Medications Medications (Trade) Dose Ordered Sig/Shelby Route Start Time Stop Time Status Last Admin Dose Admin Ondansetron HCl (Zofran Inj) 4 mg Q6H PRN IV 03/03/17 17:15 04/02/17 17:14 03/10/17 19:57 4 MG Albuterol (Ventolin Hfa Inhaler) 2 puffs Q4 PRN INH 03/03/17 18:30 04/02/17 18:29 Folic Acid (Folvite Tab) 1 mg QAM PO 03/04/17 09:00 04/03/17 08:59 03/14/17 07:47 1 MG Gabapentin (Neurontin Cap) 300 mg TID PO 03/03/17 21:00 04/02/17 20:59 03/14/17 20:55 300 MG Hyoscyamine Sulfate (Levsin Tab) 0.125 mg QID PO 03/03/17 21:00 04/02/17 20:59 03/14/17 20:55 0.125 MG Levothyroxine Sodium (Synthroid Tab) 25 mcg DAILYBB PO 03/04/17 07:00 04/03/17 06:59 03/15/17 05:37 25 MCG Thiamine HCl (Vitamin B-1 Tab) 100 mg QAM PO 03/04/17 09:00 04/03/17 08:59 03/14/17 07:48 100 MG Albuterol/ Ipratropium (Duoneb) 3 ml Q4R PRN INH 03/03/17 18:30 04/02/17 18:29 Acetaminophen (Tylenol Tab) 325 mg Q6H PRN PO 03/03/17 20:30 04/02/17 20:29 Oxycodone HCl (Roxicodone Immediate Rel Tab) 5 mg Q6H PRN PO 03/03/17 20:30 03/17/17 20:29 03/14/17 18:05 5 MG Hydromorphone HCl (Dilaudid Inj) 0.5 mg Q4H PRN IV 03/03/17 20:30 03/17/17 20:29 Nicotine (Nicoderm Cq 21MG Patch) 1 patch QAM TD 03/04/17 09:00 04/03/17 08:59 03/15/17 08:10 1 PATCH Miscellaneous (Remove Nicoderm Patch) 1 ea HS N/A 03/04/17 21:00 04/03/17 20:59 03/14/17 20:55 1 EA Sodium Bicarbonate (Sodium Bicarbonate Tab) 650 mg TID PO 03/09/17 14:00 04/08/17 13:59 03/14/17 20:55 650 MG Simethicone (Mylicon Chew Tab) 80 mg Q6H PRN PO 03/10/17 20:15 04/09/17 20:14 03/10/17 21:49 80 MG Lactulose (Chronulac Syrup) 15 gm BID PO 03/11/17 21:00 04/10/17 20:59 03/14/17 20:55 15 GM Nystatin (Mycostatin Susp) 5 ml QID PO 03/13/17 21:00 03/23/17 20:59 03/14/17 20:55 5 ML Fluconazole/ Sodium Chloride 100 mg/Prmx 50 ml @ 100 mls/hr Q24H IV 03/13/17 20:00 03/23/17 19:29 03/14/17 20:55 100 MLS/HR Sodium Chloride 500 ml @ 15 mls/hr Q24H ONCE IV 03/14/17 09:00 03/15/17 08:59 Midodrine (Proamatine Tab) 5 mg BID@0800,1700 PO 03/14/17 17:00 04/10/17 07:59 03/15/17 08:11 5 MG Spironolactone (Aldactone Tab) 25 mg QAM PO 03/15/17 09:00 04/14/17 08:59 Furosemide (Lasix Tab) 10 mg BID17 PO 03/14/17 17:00 04/13/17 16:59 03/14/17 17:59 10 MG Last 24 Hours Test 03/14/17 11:18 03/15/17 05:58 Prothrombin Time 15.0 SECONDS Prothromb Time International Ratio 1.4 White Blood Count 10.72 K/uL Red Blood Count 2.88 M/uL Hemoglobin 8.8 g/dL Hematocrit 26.7 % Mean Corpuscular Volume 92.7 fL Mean Corpuscular Hemoglobin 30.6 pg Mean Corpuscular Hemoglobin Concent 33.0 g/dl RDW Standard Deviation 49.7 fL RDW Coefficient of Variation 14.8 % Platelet Count 160 K/uL Mean Platelet Volume 11.8 fL Sodium Level 140 mmol/L Potassium Level 3.3 mmol/L Chloride Level 111 mmol/L Carbon Dioxide Level 17 mmol/L Anion Gap 12.0 mmol/L Blood Urea Nitrogen 18 mg/dl Creatinine 1.07 mg/dl Est Creatinine Clear Calc Drug Dose 48.3 ml/min Estimated GFR () 65.3 Estimated GFR (Non- 56.4 BUN/Creatinine Ratio 16.4 Random Glucose 89 mg/dl Calcium Level 8.1 mg/dl Total Bilirubin 1.2 mg/dl Aspartate Amino Transf (AST/SGOT) 44 U/L Alanine Aminotransferase (ALT/SGPT) 18 U/L Alkaline Phosphatase 77 U/L Total Protein 5.5 gm/dl Albumin 2.6 gm/dl Globulin 2.9 gm/dl Albumin/Globulin Ratio 0.9 Assessment & Plan [id number] which has peaked and trending down. restarted diuretics and will follow creatinine and bp closely. pt with low blood pressures but asymptomatic. ok from renal perspective to go home when medically cleared. would repeat bmp in a week and follow bp at pcp office. may need to continue to titrate up the diuretics as outpt as tolerated.
--- NOTE | 2017-03-15 08:50 | Gastroenterology Progress Note ---
Progress Note Date of Service: Mar 15, 2017 Subjective Pt evaluation today including: conversation w/ patient, physical exam, chart review, lab review Pt seen and evaluated, chart reviewed. Pt is NPO for paracentesis at 1000. Reports abd discomfort during movement. No nausea, vomiting. Denies any black or bloody stools. EGD: WNL but biopsies with thrush Colon: hemorrhoids Review of Systems Constitutional: No fever, No chills Respiratory: No cough, No shortness of breath Cardiac: No chest pain, No edema Abdomen: + pain, No nausea, No vomiting, No diarrhea, No constipation, No GI bleeding Medications Current Inpatient Medications Medications (Trade) Dose Ordered Sig/Shelby Route Start Time Stop Time Status Last Admin Dose Admin Ondansetron HCl (Zofran Inj) 4 mg Q6H PRN IV 03/03/17 17:15 04/02/17 17:14 03/10/17 19:57 4 MG Albuterol (Ventolin Hfa Inhaler) 2 puffs Q4 PRN INH 03/03/17 18:30 04/02/17 18:29 Folic Acid (Folvite Tab) 1 mg QAM PO 03/04/17 09:00 04/03/17 08:59 03/14/17 07:47 1 MG Gabapentin (Neurontin Cap) 300 mg TID PO 03/03/17 21:00 04/02/17 20:59 03/14/17 20:55 300 MG Hyoscyamine Sulfate (Levsin Tab) 0.125 mg QID PO 03/03/17 21:00 04/02/17 20:59 03/14/17 20:55 0.125 MG Levothyroxine Sodium (Synthroid Tab) 25 mcg DAILYBB PO 03/04/17 07:00 04/03/17 06:59 03/15/17 05:37 25 MCG Thiamine HCl (Vitamin B-1 Tab) 100 mg QAM PO 03/04/17 09:00 04/03/17 08:59 03/14/17 07:48 100 MG Albuterol/ Ipratropium (Duoneb) 3 ml Q4R PRN INH 03/03/17 18:30 04/02/17 18:29 Acetaminophen (Tylenol Tab) 325 mg Q6H PRN PO 03/03/17 20:30 04/02/17 20:29 Oxycodone HCl (Roxicodone Immediate Rel Tab) 5 mg Q6H PRN PO 03/03/17 20:30 03/17/17 20:29 03/14/17 18:05 5 MG Hydromorphone HCl (Dilaudid Inj) 0.5 mg Q4H PRN IV 03/03/17 20:30 03/17/17 20:29 Nicotine (Nicoderm Cq 21MG Patch) 1 patch QAM TD 03/04/17 09:00 04/03/17 08:59 03/15/17 08:10 1 PATCH Miscellaneous (Remove Nicoderm Patch) 1 ea HS N/A 03/04/17 21:00 04/03/17 20:59 03/14/17 20:55 1 EA Sodium Bicarbonate (Sodium Bicarbonate Tab) 650 mg TID PO 03/09/17 14:00 04/08/17 13:59 03/14/17 20:55 650 MG Simethicone (Mylicon Chew Tab) 80 mg Q6H PRN PO 03/10/17 20:15 04/09/17 20:14 03/10/17 21:49 80 MG Lactulose (Chronulac Syrup) 15 gm BID PO 03/11/17 21:00 04/10/17 20:59 03/14/17 20:55 15 GM Nystatin (Mycostatin Susp) 5 ml QID PO 03/13/17 21:00 03/23/17 20:59 03/14/17 20:55 5 ML Fluconazole/ Sodium Chloride 100 mg/Prmx 50 ml @ 100 mls/hr Q24H IV 03/13/17 20:00 03/23/17 19:29 03/14/17 20:55 100 MLS/HR Sodium Chloride 500 ml @ 15 mls/hr Q24H ONCE IV 03/14/17 09:00 03/15/17 08:59 Midodrine (Proamatine Tab) 5 mg BID@0800,1700 PO 03/14/17 17:00 04/10/17 07:59 03/15/17 08:11 5 MG Spironolactone (Aldactone Tab) 25 mg QAM PO 03/15/17 09:00 04/14/17 08:59 Furosemide (Lasix Tab) 10 mg BID17 PO 03/14/17 17:00 04/13/17 16:59 03/14/17 17:59 10 MG Potassium Chloride (Klor-Con M10) 40 meq TODAY@0900 ONCE PO 03/15/17 09:00 03/15/17 09:01 Objective Vital Signs Date Time Temp Pulse Resp B/P (MAP) Pulse Ox O2 Delivery O2 Flow Rate FiO2 03/15/17 07:42 36.7 80 18 81/51 (61) 95 Nasal Cannula 2.0 03/15/17 04:00 Nasal Cannula 2.0 03/15/17 03:56 36.8 80 17 83/52 (62) 98 Nasal Cannula 2.0 Humidified Oxygen 03/15/17 00:24 36.5 82 18 97/61 (73) 100 Nasal Cannula 2.0 Humidified Oxygen 03/15/17 00:00 Nasal Cannula 2.0 03/14/17 20:00 Nasal Cannula 2.0 03/14/17 19:34 36.7 78 16 91/55 (67) 99 Nasal Cannula 2.0 03/14/17 16:10 95 Room Air 03/14/17 16:02 36.4 80 20 91/55 (67) 96 Room Air 03/14/17 15:36 96 Nasal Cannula 2.0 03/14/17 12:22 95 Room Air 03/14/17 10:43 36.3 87 20 104/61 (75) 03/14/17 10:05 85 18 95/62 (73) 99 Room Air 03/14/17 09:52 83 16 93/56 (68) 92 Room Air 03/14/17 09:37 80 16 99/63 (75) 98 Room Air 03/14/17 08:50 36.8 85 16 99/63 (75) 98 Room Air Physical Exam General Appearance: no apparent distress Eyes: PERRL ENT: hearing grossly normal Neck: supple Respiratory/Chest: lungs clear Cardiovascular: regular rate, rhythm Abdomen: normal bowel sounds, no organomegaly, no pulsatile mass, + pertinent finding (non tense ascites) Neurologic/Psych: alert, normal mood/affect, oriented x 3 Skin: normal color Laboratory Results Last 24 Hours Test 03/14/17 11:18 03/15/17 05:58 Prothrombin Time 15.0 SECONDS Prothromb Time International Ratio 1.4 White Blood Count 10.72 K/uL Red Blood Count 2.88 M/uL Hemoglobin 8.8 g/dL Hematocrit 26.7 % Mean Corpuscular Volume 92.7 fL Mean Corpuscular Hemoglobin 30.6 pg Mean Corpuscular Hemoglobin Concent 33.0 g/dl RDW Standard Deviation 49.7 fL RDW Coefficient of Variation 14.8 % Platelet Count 160 K/uL Mean Platelet Volume 11.8 fL Sodium Level 140 mmol/L Potassium Level 3.3 mmol/L Chloride Level 111 mmol/L Carbon Dioxide Level 17 mmol/L Anion Gap 12.0 mmol/L Blood Urea Nitrogen 18 mg/dl Creatinine 1.07 mg/dl Est Creatinine Clear Calc Drug Dose 48.3 ml/min Estimated GFR () 65.3 Estimated GFR (Non- 56.4 BUN/Creatinine Ratio 16.4 Random Glucose 89 mg/dl Calcium Level 8.1 mg/dl Total Bilirubin 1.2 mg/dl Aspartate Amino Transf (AST/SGOT) 44 U/L Alanine Aminotransferase (ALT/SGPT) 18 U/L Alkaline Phosphatase 77 U/L Total Protein 5.5 gm/dl Albumin 2.6 gm/dl Globulin 2.9 gm/dl Albumin/Globulin Ratio 0.9 Assessment and Plan Patient is a 61 year old female w suspected ETOH cirrhosis MELD 15, admitted for increasing abd distension and pain, recently admitted and discharged last week, on abx for SBP. Began reaccumulated abd fluid, weak, dizzy, fatigued --> ED. Hypotensive, with abd distention s/p paracentesis with 3L off. BRADLEY --> will rule out HRS. Urine NA 60, first paracentesis without evidence of SBP. Kidney function without improvement over the weekend. Had repeat paracentesis with 4L off --> cultures pending. Nephrology now following, repeating urine NA and to start albumin. Mild improvement of kidney function overnight. NPO Diagnostic and therapeutics paracentesis w/ 25% 25G albumin before and after Stop doxycycline Fluconazole 200 mg daily x 14 days Low NA diet No ETOH Lasix 10 mg BID Spironolactone 25 mg daily Lactulose 15GM BID I have seen the patient and performed a history and physical examination of the patient, I have discussed the patient's management with Susannah. Please refer to the PA's note for the documented findings and plan of care. Continue laxatives as tolerated. Follow up in GI clinic upon discharge. GI to sign off. Will follow up fluid studies. Please call with any questions or concerns.
[2017-03-15] MEDS: ALBUMIN HUMAN 25% 12.5 GM/50 ML VIAL IV SCH ×4 (08:56→13:00)
[2017-03-15] MEDS ORDERED: POTASSIUM CHLORIDE 10 MEQ TABCR PO ONE (09:00)
[2017-03-15] MEDS: LACTULOSE SYRUP 10 GM/15 ML BTL 473 ML PO SCH ×2 (10:08→20:38)
[2017-03-15] MEDS: THIAMINE HCL 100 MG TAB PO SCH (10:08)
[2017-03-15] MEDS: GABAPENTIN 300 MG CAP PO SCH ×3 (10:09→20:38)
[2017-03-15] MEDS: FUROSEMIDE 20 MG TAB PO SCH ×2 (10:09→16:14)
[2017-03-15] MEDS: SODIUM BICARBONATE 650 MG TAB PO SCH ×3 (10:09→20:38)
[2017-03-15] MEDS: NYSTATIN SUSP 500,000 U/5 ML UDC PO SCH ×4 (10:09→20:37)
[2017-03-15] MEDS: HYOSCYAMINE SULFATE 0.125 MG SL TAB PO SCH ×4 (10:10→20:39)
--- NOTE | 2017-03-15 10:12 | DIAGNOSTIC IMAGING REPORT ---
PARACENTESIS UNDER ULTRASOUND GUIDANCE CLINICAL HISTORY: Generalized abdominal pain. Ascites. PROCEDURE: The risks, benefits, and alternatives to the procedure were discussed with the patient who voiced understanding. Written informed consent was obtained. Following real-time ultrasound localization of a suitable pocket of fluid in the left lower quadrant, the abdomen was prepped and draped in the usual sterile fashion. The skin and soft tissues were anesthetized with 1% lidocaine. The sheathed paracentesis was inserted and approximately 2.1 liters of straw-colored ascitic fluid was removed by vacuum suction. Fluid was sent for laboratory analysis. The procedure was well tolerated and without immediate complication. The patient left the department in satisfactory condition. IMPRESSION: Successful ultrasound-guided paracentesis with removal of approximately 2.1 liters of ascitic fluid. Electronically signed by: Oleg Owens M.D. 03/15/2017 10:11 AM Dictated Date/Time: 03/15/2017 10:10 AM
[2017-03-15] MEDS: SPIRONOLACTONE 25 MG TAB PO SCH (11:05)
[2017-03-15 12:00] LABS: PERIT FL WBC 170 /uL (0-300); PERITONEAL FLUID RBC < 3000 /uL
--- NOTE | 2017-03-15 13:24 | Progress Note ---
Internal Med Progress Note Date of Service: Mar 15, 2017. Provider Documentation: SUBJECTIVE: The patient was seen and examined S/P another paracentesis Feels very tired following the procedure OBJECTIVE: Vital Signs-as noted below Exam: General-No distress at rest No Hepatic Flap Eyes-normal ENT-normal Neck-supple Lungs-Clear to auscultate bilaterally Heart-Regular,no murmur Abdomen-Benign,Distended,moderate amount of Ascites,no masses,bowel sound present Minimally tender all over Extremities-No edema Neuro-AAOx3 Minimally drowsy Lab data as noted below. ASSESSMENT & PLAN: Patient is a 61yr female with a PMH of COPD, chronic hepatitis C, hepatitis B, fatty liver, alcohol abuse, tobacco abuse disorder presents with abnormal vital signs at home and was found to be hypotensive and confused. Recurrent Ascites Secondary to Cirrhosis S/P Paracentesis on 03/04/17,03/07 and again on 03/15 Very tired following the procedure Appreciate GI evaluation Low Grade fever Temp was 37.7 on 03/13 No new symptoms; does not appear to be septic. No acute infiltrates on chest x-ray. WBC was 15,970. but has reduced to normality Urine 03/10, specimen from pharynx or esophagus 03/11, stool 03/11 all growing Sada albicans. Started oral nystatin + IV fluconazole. Will have oral Fluconazole on discharge. BRADLEY: May has Hepatorenal Syndrome Serum creatinine at time of admission 1.56, compared recent baseline of 0.8 - 1.0. Acute kidney injury could be secondary to volume depletion from diuretics, SBP, hepatorenal syndrome, recent TMP / sulfa. Nephrology consulted. Diuretics being held. Receiving albumin for volume expansion. Serum creatinine -normalized Hypotension: Likely 2/2 poor PO intake, vomiting and she is on diuretics and intravascular volume depletion S/P 2 L of fluid in the ER. BP normalized and went down again Diuretics are on Hold now Will give Albumin as per GI recommendations Remains on the Lower side -without any symptoms Echo showed normal LVEF, no pericardial effusion, no hemodynamically significant valvular disease. Nursing staff notes that BP's usually higher in right arm than left. Hypotension probably related to advanced cirrhosis. Started midodrine 2.5 mg BID. Blood pressure this morning 88/55. Increase midodrine to 5 mg BID. Decompensated chronic liver disease: H/o alcohol abuse, chronic Hep C, Hep B-none is active now Still completing Doxy course from SBP since last admission S/P Paracentesis -Gm stain and Culture-pending ,Cell count does not support Peritonitis Continue Lactulose -bowel moving 2-3 times daily Clinically a lot better ,no confusion Has symptomatic Ascites Confusion: -cleared to baseline Head CT to r/o any acute pathology Likely due to hepatic encephalopathy continue Lactulose 15mg TID Ammonia: 44 NO SBP GI BLEEDING / ACUTE BLOOD LOSS ANEMIA 2 episodes of rectal bleeding yesterday. EGD did not show any bleeding varices or ulcers. Colonoscopy anticipated tomorrow. Received 1 unit pRBCs. Hgb today = 10.6. Follow H/H. H/o alcohol abuse: Continue thiamine Continue home gabapentin TID in case of withdrawal Denies drinking since last month COPD: Compensated Continue home meds DuoNeb PRN Tobacco abuse disorder: Denied need for nicotine patch Has decreased use in the past few months DVT Px: Heparin SQ Code status: FULL PCP: Jey Dispo: SW consulted to help with discharge placement Patient prefers to be discharged home Vital Signs: Date Time Temp Pulse Resp B/P (MAP) Pulse Ox O2 Delivery O2 Flow Rate FiO2 03/15/17 12:00 Room Air 03/15/17 11:33 36.4 76 16 84/46 (59) 96 Room Air 03/15/17 11:19 36.5 83 18 96/60 (72) 97 2.0 03/15/17 10:20 86 20 87/47 (60) 93 Room Air 03/15/17 08:00 Room Air 03/15/17 07:42 36.7 80 18 81/51 (61) 95 Nasal Cannula 2.0 03/15/17 04:00 Nasal Cannula 2.0 03/15/17 03:56 36.8 80 17 83/52 (62) 98 Nasal Cannula 2.0 Humidified Oxygen 03/15/17 00:24 36.5 82 18 97/61 (73) 100 Nasal Cannula 2.0 Humidified Oxygen 03/15/17 00:00 Nasal Cannula 2.0 03/14/17 20:00 Nasal Cannula 2.0 03/14/17 19:34 36.7 78 16 91/55 (67) 99 Nasal Cannula 2.0 03/14/17 16:10 95 Room Air 03/14/17 16:02 36.4 80 20 91/55 (67) 96 Room Air 03/14/17 15:36 96 Nasal Cannula 2.0 Lab Results: Results Past 24 Hours Test 03/15/17 00:00 03/15/17 05:58 Range/Units Peritoneal Fluid Color YELLOW Peritoneal Fluid Appearance CLEAR Peritoneal Fluid WBC 170 0-300 /uL Peritoneal Fluid RBC < 3000 /uL Peritoneal Fld Mononuclear WBCs (%) 94.3 % Peritoneal Fld Polynuclear WBCs (%) 5.7 % Peritoneal Fluid Total Protein 2.3 g/dl Peritoneal Fluid Albumin 1.4 g/dl White Blood Count 10.72 4.8-10.8 K/uL Red Blood Count 2.88 4.2-5.4 M/uL Hemoglobin 8.8 12.0-16.0 g/dL Hematocrit 26.7 37-47 % Mean Corpuscular Volume 92.7 80-100 fL Mean Corpuscular Hemoglobin 30.6 25-34 pg Mean Corpuscular Hemoglobin Concent 33.0 32-36 g/dl RDW Standard Deviation 49.7 36.4-46.3 fL RDW Coefficient of Variation 14.8 11.5-14.5 % Platelet Count 160 130-400 K/uL Mean Platelet Volume 11.8 7.4-10.4 fL Sodium Level 140 136-145 mmol/L Potassium Level 3.3 3.5-5.1 mmol/L Chloride Level 111 98-107 mmol/L Carbon Dioxide Level 17 21-32 mmol/L Anion Gap 12.0 3-11 mmol/L Blood Urea Nitrogen 18 7-18 mg/dl Creatinine 1.07 0.60-1.20 mg/dl Est Creatinine Clear Calc Drug Dose 48.3 ml/min Estimated GFR () 65.3 Estimated GFR (Non- 56.4 BUN/Creatinine Ratio 16.4 10-20 Random Glucose 89 70-99 mg/dl Calcium Level 8.1 8.5-10.1 mg/dl Total Bilirubin 1.2 0.2-1 mg/dl Aspartate Amino Transf (AST/SGOT) 44 15-37 U/L Alanine Aminotransferase (ALT/SGPT) 18 12-78 U/L Alkaline Phosphatase 77 45-117 U/L Total Protein 5.5 6.4-8.2 gm/dl Albumin 2.6 3.4-5.0 gm/dl Globulin 2.9 2.5-4.0 gm/dl Albumin/Globulin Ratio 0.9 0.9-2 Microbiology Results 03/15/17 Acid Fast Stain, Received Pending 03/15/17 Mycobacterial Culture, Received Pending 03/15/17 Gram Stain, Received Pending 03/15/17 Bacterial Culture, Received Pending
[2017-03-15] MEDS: FLUCONAZOLE / NSS 100 MG in PREMIXED NSS 50 ML IV SCH (20:51)
[2017-03-16] VITALS (7 sets, daily range): BP systolic 84–119; BP diastolic 39–63; PULSE 74–80; TEMP 36.4–37; O2SAT 91–99
[2017-03-16 05:55] LABS: HEMATOCRIT 28.7 % (37-47); MEAN CELL VOLUME 94.7 fL (80-100); MEAN CORPUSCULAR HGB CONC 32.8 g/dl (32-36); MEAN PLATELET VOLUME 11.6 fL (7.4-10.4); PLATELET COUNT 151 K/uL (130-400); RED BLOOD COUNT 3.03 M/uL (4.2-5.4); WHITE BLOOD COUNT 9.45 K/uL (4.8-10.8)
[2017-03-16] MEDS: LEVOTHYROXINE 25 MCG TAB PO SCH (06:23)
[2017-03-16 06:37] LABS: BUN/CREATININE RATIO 15.3 (10-20); CALCIUM 8.2 mg/dl (8.5-10.1); CREATININE 1.05 mg/dl (0.60-1.20); MAGNESIUM 1.7 mg/dl (1.8-2.4); POTASSIUM 3.8 mmol/L (3.5-5.1)
[2017-03-16] MEDS: THIAMINE HCL 100 MG TAB PO SCH (08:04)
[2017-03-16] MEDS: GABAPENTIN 300 MG CAP PO SCH ×2 (08:05→14:07)
[2017-03-16] MEDS: SPIRONOLACTONE 25 MG TAB PO SCH (08:05)
[2017-03-16] MEDS: NYSTATIN SUSP 500,000 U/5 ML UDC PO SCH ×2 (08:05→12:47)
[2017-03-16] MEDS: FUROSEMIDE 20 MG TAB PO SCH (08:06)
[2017-03-16] MEDS: MIDODRINE 2.5 MG TAB PO SCH (08:06)
[2017-03-16] MEDS: LACTULOSE SYRUP 10 GM/15 ML BTL 473 ML PO SCH (08:06)
[2017-03-16] MEDS: NICOTINE 21 MG/24 HR TDSY TD SCH (08:06)
[2017-03-16] MEDS: SODIUM BICARBONATE 650 MG TAB PO SCH ×2 (08:07→14:07)
[2017-03-16] MEDS: HYOSCYAMINE SULFATE 0.125 MG SL TAB PO SCH ×2 (08:07→12:46)
--- NOTE | 2017-03-16 13:34 | Progress Note ---
Internal Med Progress Note Date of Service: Mar 16, 2017. Provider Documentation: SUBJECTIVE: The patient was seen and examined S/P another paracentesis 03/15/17 Feels very tired following the procedure Much better today- 03/16 Denies any symptoms Wants to go home today OBJECTIVE: Vital Signs-as noted below Exam: General-No distress at rest Eyes-normal ENT-normal Neck-supple Lungs-Clear to auscultate bilaterally Heart-Regular,no murmur Abdomen-Benign,Distended,moderate amount of Ascites,no masses,bowel sound present Minimally tender all over-clinically less distended than 03/15/17 Extremities-No edema Neuro-AAOx3 Minimally drowsy Lab data as noted below. ASSESSMENT & PLAN: Patient is a 61yr female with a PMH of COPD, chronic hepatitis C, hepatitis B, fatty liver, alcohol abuse, tobacco abuse disorder presents with abnormal vital signs at home and was found to be hypotensive and confused. Recurrent Ascites-requires recurrent paracentesis Secondary to Cirrhosis S/P Paracentesis on 03/04/17,03/07 and again on 03/15 Very tired following the procedure Appreciate GI evaluation No Evidence of SBP Will discharge home today Low Grade fever Temp was 37.7 on 03/13 No new symptoms; does not appear to be septic. No acute infiltrates on chest x-ray. WBC was 15,970. but has reduced to normality Urine 03/10, specimen from pharynx or esophagus 03/11, stool 03/11 all growing Sada albicans. Started oral nystatin + IV fluconazole. Will have oral Fluconazole on discharge. NO more fever /chills BRADLEY: May has Hepatorenal Syndrome Serum creatinine at time of admission 1.56, compared recent baseline of 0.8 - 1.0. Acute kidney injury could be secondary to volume depletion from diuretics, SBP, hepatorenal syndrome, recent TMP / sulfa. Nephrology consulted. Diuretics being held. Receiving albumin for volume expansion. Serum creatinine -normalized Hypotension: Likely 2/2 poor PO intake, vomiting and she is on diuretics and intravascular volume depletion S/P 2 L of fluid in the ER. BP normalized and went down again Diuretics are on Hold now Will give Albumin as per GI recommendations Remains on the Lower side -without any symptoms Echo showed normal LVEF, no pericardial effusion, no hemodynamically significant valvular disease. Nursing staff notes that BP's usually higher in right arm than left. Hypotension probably related to advanced cirrhosis. Started midodrine 2.5 mg BID. Blood pressure this morning 88/55. Increase midodrine to 5 mg BID. Blood pressure is stable Decompensated chronic liver disease: H/o alcohol abuse, chronic Hep C, Hep B-none is active now Still completing Doxy course from SBP since last admission S/P Paracentesis -Gm stain and Culture-pending ,Cell count does not support Peritonitis Continue Lactulose -bowel moving 2-3 times daily Clinically a lot better ,no confusion Has asymptomatic Ascites now Confusion: -cleared to baseline Head CT to r/o any acute pathology Likely due to hepatic encephalopathy continue Lactulose 15mg TID Ammonia: 44 NO SBP GI BLEEDING / ACUTE BLOOD LOSS ANEMIA 2 episodes of rectal bleeding yesterday. EGD did not show any bleeding varices or ulcers. Colonoscopy anticipated tomorrow. Received 1 unit pRBCs. Hgb today = 10.6. Follow H/H. H/o alcohol abuse: Continue thiamine Continue home gabapentin TID in case of withdrawal Denies drinking since last month COPD: Compensated Continue home meds DuoNeb PRN Tobacco abuse disorder: Denied need for nicotine patch Has decreased use in the past few months DVT Px: Heparin SQ Code status: FULL PCP: Jey Dispo: SW consulted to help with discharge placement Patient prefers to be discharged home Discharge home today Vital Signs: Date Time Temp Pulse Resp B/P (MAP) Pulse Ox O2 Delivery O2 Flow Rate FiO2 03/16/17 12:15 Room Air 03/16/17 10:20 95 Nasal Cannula 3.0 03/16/17 10:14 36.8 74 15 89/53 (65) 95 Nasal Cannula 2.0 03/16/17 08:00 Room Air 03/16/17 07:46 37.0 78 14 84/39 (54) 97 Nasal Cannula 2.0 03/16/17 05:50 36.4 80 16 89/52 (64) 99 Nasal Cannula 2.0 03/16/17 04:00 91 Nasal Cannula 2.0 03/15/17 23:59 91 Nasal Cannula 2.0 03/15/17 23:05 36.8 78 16 88/52 (64) 99 Nasal Cannula 2.0 03/15/17 20:04 36.7 80 20 88/48 (61) 92 Nasal Cannula 2.0 03/15/17 20:00 91 Nasal Cannula 2.0 03/15/17 16:33 36.6 76 16 82/50 (61) 91 Room Air 03/15/17 16:00 Room Air 03/15/17 15:20 36.7 70 18 81/50 (60) 96 Nasal Cannula 2.0 03/15/17 14:07 86/52 (63) Lab Results: Results Past 24 Hours Test 03/16/17 05:34 Range/Units White Blood Count 9.45 4.8-10.8 K/uL Red Blood Count 3.03 4.2-5.4 M/uL Hemoglobin 9.4 12.0-16.0 g/dL Hematocrit 28.7 37-47 % Mean Corpuscular Volume 94.7 80-100 fL Mean Corpuscular Hemoglobin 31.0 25-34 pg Mean Corpuscular Hemoglobin Concent 32.8 32-36 g/dl RDW Standard Deviation 51.3 36.4-46.3 fL RDW Coefficient of Variation 14.9 11.5-14.5 % Platelet Count 151 130-400 K/uL Mean Platelet Volume 11.6 7.4-10.4 fL Sodium Level 140 136-145 mmol/L Potassium Level 3.8 3.5-5.1 mmol/L Chloride Level 112 98-107 mmol/L Carbon Dioxide Level 20 21-32 mmol/L Anion Gap 8.0 3-11 mmol/L Blood Urea Nitrogen 16 7-18 mg/dl Creatinine 1.05 0.60-1.20 mg/dl Est Creatinine Clear Calc Drug Dose 48.6 ml/min Estimated GFR () 66.9 Estimated GFR (Non- 57.7 BUN/Creatinine Ratio 15.3 10-20 Random Glucose 87 70-99 mg/dl Calcium Level 8.2 8.5-10.1 mg/dl Phosphorus Level 3.0 2.5-4.9 mg/dl Magnesium Level 1.7 1.8-2.4 mg/dl
[2017-03-16] MEDS ORDERED: SODI650T8 PO (15:16)
[2017-03-16] MEDS ORDERED: PRMT25 PO (15:16)
[2017-03-16] MEDS ORDERED: LSX20 PO (15:16)
[2017-03-16] MEDS ORDERED: NYSS5 PO (15:16)
[2017-03-16] MEDS ORDERED: LCTS240 PO (15:16)
[2017-03-16] MEDS ORDERED: SPR25 PO (15:16)
--- NOTE | 2017-03-16 15:21 | Discharge Instructions ---
Discharge Instructions Date of Service Mar 16, 2017. Admission Reason for Admission: Ascities Discharge Discharge Diagnosis / Problem: Recurrent Ascites requiring recurrent Paracentis ,Cirrhosis.AMS-improved Discharge Goals Goal(s): Prevent Disease Progression Activity Recommendations Activity Limitations: resume your previous activity (Take precaution to avoid fall) . Instructions / Follow-Up Instructions / Follow-Up Dr Maki on 03/22/17 at 11:05 AM.Please keep appointment with GI Current Hospital Diet Patient's current hospital diet: Low Sodium Diet (2gm Na) Discharge Diet Recommended Diet: Low Sodium Diet (2gm Na) Fluid Restriction: 1500 ml (6 cups) Procedures Procedures Performed: Colonoscopy Pending Studies Studies pending at discharge: no Medical Emergencies . Who to Call and When: Medical Emergencies: If at any time you feel your situation is an emergency, please call 911 immediately. . Non-Emergent Contact Non-Emergency issues call your: Primary Care Provider . Past History Medical & Surgical History: (1) Decompensated hepatic cirrhosis (2) Hypotension (3) BRADLEY (acute kidney injury) (4) Hypotension (5) Depression (6) Alcohol abuse (7) COPD, moderate (8) History of seizures (9) Fatty liver (10) Abdominal pain (11) Anemia (12) History of appendectomy (13) H/O exploratory laparotomy (14) History of tubal ligation . "Provider Documentation" section prepared by Reece Camarillo. . VTE Core Measure Inpt VTE Proph given/why not?: Unfractionated heparin SQ
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
[2017-04-01] MEDS ORDERED: FRS/40 PO (13:41)
[2017-04-01] MEDS ORDERED: SPIR50TA3 PO (13:41)
== END 2017-03-16 15:15 | disposition home or self-care (01) | DRG 432 ==
LOC: EDBD 12:50 → C.EDC 12:51 → C.2T 17:03 → UNDOADMIN 17:03 → EDBEDREQ 17:13 → ENRESERV 17:24
PROVIDERS: ADMIT Internal Medicine; ATTEND Internal Medicine
PROC: 0W9G3ZX Drainage of Peritoneal Cavity, Percutaneous Approach, Diagnostic (ICD-10-PCS; principal; 2017-03-04)
PROC: 0W9G3ZX Drainage of Peritoneal Cavity, Percutaneous Approach, Diagnostic (ICD-10-PCS; 2017-03-07)
PROC: 0W9G3ZX Drainage of Peritoneal Cavity, Percutaneous Approach, Diagnostic (ICD-10-PCS; 2017-03-15)
PROC: 0DJD8ZZ Inspection of Lower Intestinal Tract, Via Natural or Artificial Opening Endoscopic (ICD-10-PCS; 2017-03-15)
DX: K70.31 Alcoholic cirrhosis of liver with ascites (principal); N17.0 Acute kidney failure with tubular necrosis; E72.20 Disorder of urea cycle metabolism, unspecified; B19.10 Unspecified viral hepatitis B without hepatic coma; E87.2 Acidosis; Z82.0 Family history of epilepsy and other diseases of the nervous system; I95.9 Hypotension, unspecified; F17.210 Nicotine dependence, cigarettes, uncomplicated; J44.9 Chronic obstructive pulmonary disease, unspecified; B18.2 Chronic viral hepatitis C; K76.0 Fatty (change of) liver, not elsewhere classified; F10.10 Alcohol abuse, uncomplicated; R41.0 Disorientation, unspecified; D64.9 Anemia, unspecified; K72.90 Hepatic failure, unspecified without coma; E87.8 Other disorders of electrolyte and fluid balance, not elsewhere classified

== ENCOUNTER 2017-04-21 10:44 | Inpatient (IN) | payer OTHER ==
[~2017-04-21] VITALS: Ht 152.4 cm; Wt 55.1 kg
[~2017-04-21 10:44] MED LIST changes: -DOXY-300 PO; +FRS/40 PO; +LCTS240 PO; -LSX40 PO; +NYSS5 PO; +PRMT25 PO; +SODI650T8 PO; +SPIR50TA3 PO; -SPRN100 PO
--- NOTE | 2017-04-21 11:54 | Gastrointestinal Consultation ---
Gastrointestinal Consultation Date of Consultation: Apr 21, 2017 Attending Physician: FATUMA Bolton Consulting Physician: Frank Reason for Consultation: hypotension, ascites History of Present Illness Patient is a 62 year old female w/ PMH significant for of HCV (last HCV RNA in October), ETOH cirrhosis sober since February 13, seizures and others listed below who presented to [facility] for outpatient paracentesis --> called with symptomatic hypotension BP 69/48, similar on recheck. Advised admission for further evaluation. Pt was seen and evaluted, chart reviewed. Was recently evlauated by Nurys Bazzi, SBP 112 with increase in lasix/spironlactone to lasix 60 spironolactione 100 due to continue abdominal distention. She notes she changed these medications but continued to have worsening accumulatio. Developed severe abdominal pain, shooting for periumbilial to her left lower quadrant. Occurs at random, unchanged by PO intake. No nausea, vomiting. Moving bowels on lactulose. No black or bloody stools. She had IVF and albumin in [facility], SBP now 90's. Reports weakness, lightheadedness, dizziness. Past Medical/Surgical History Medical Problems: (1) BRADLEY (acute kidney injury) Status: Acute (2) BRADLEY (acute kidney injury) Status: Acute (3) Ambulatory dysfunction Status: Acute (4) Ascites Status: Acute (5) Chest wall contusion Status: Acute (6) Chest wall pain Status: Acute (7) Diffuse abdominal pain Status: Acute (8) Elevated bilirubin Status: Acute (9) Hyperammonemia Status: Acute (10) Hypomagnesemia Status: Acute (11) Hypotension Status: Acute (12) Paresthesia Status: Acute (13) Partial small bowel obstruction Status: Acute (14) Symptomatic anemia Status: Acute Past Medical History: HCV, cirrhosis, ETOH abuse, anemia, seizure disorder, hypotension Past Surgical History: Bilateral tubal ligation, Ex lap, EGD, Colon Family History FH: dementia FATHER Social History Smoking Status: Current Every Day Smoker Alcohol Use: heavy Drug Use: none Marital Status: in relationship Housing Status: lives with family Occupation Status: unemployed Allergies Coded Allergies: No Known Allergies (Unverified , 04/21/17) Current Medications Home Meds and Scripts Medications Dose Route/Sig Max Daily Dose Days Date Category Dose Instructions Aldactone (Spironolactone) 50 Mg Tab 50 Mg PO DAILY 04/01/17 Reported Lasix (Furosemide) 40 Mg Tab 40 Mg PO DAILY 04/01/17 Reported Sodium Bicarbonate 650 Mg Tab 650 Mg PO TID 30 03/16/17 Rx Chronulac (Lactulose) 10 Gm/15 Ml Syrp 15 Gm PO BID 30 03/16/17 Rx Midodrine HCl (Midodrine) 2.5 Mg Tab 5 Mg PO BID@0800,1700 30 03/16/17 Rx Nystatin 5 Ml Susp 5 Ml PO QID 7 03/16/17 Rx Vitamin B-1 (Thiamine HCl) 100 Mg Tab 100 Mg PO QAM 30 02/18/17 Rx Folic Acid 1 Mg Tab 1 Mg PO QAM 30 02/18/17 Rx Synthroid (Levothyroxine Sodium) 25 Mcg Tab 25 Mcg PO DAILYBB 30 02/18/17 Rx Klor-Con M20 (Potassium Chloride) 20 Meq Tabcr 20 Meq PO DAILY 30 02/18/17 Rx Neurontin (Gabapentin) 300 Mg Cap 300 Mg PO TID 10/25/16 Reported Ventolin Hfa (Albuterol) 200 Puffs/11185 Mcg Aers 2 Puffs INH Q4 PRN 10/25/16 Reported Levsin (Hyoscyamine Sulfate) 0.125 Mg Tab 0.125 Mg PO QID 10/25/16 Reported BEFORE MEALS AND AT BEDTIME. Review of Systems Constitutional: + weakness, No fever, No chills Respiratory: + shortness of breath, No cough Cardiac: No chest pain, No edema Abdomen: + pain, No nausea, No vomiting, No diarrhea, No constipation, No GI bleeding, No dysphagia, No odynophagia Skin: No rash Physical Exam Date Time Temp Pulse Resp B/P (MAP) Pulse Ox O2 Delivery O2 Flow Rate FiO2 04/21/17 11:34 87 16 100/65 95 Room Air 04/21/17 10:58 83 04/21/17 10:52 36.7 85 18 95/65 96 Room Air General Appearance: + mild distress Eyes: PERRL ENT: hearing grossly normal Neck: supple Respiratory/Chest: lungs clear, no respiratory distress Cardiovascular: regular rate, rhythm, no edema, no murmur Abdomen: normal bowel sounds, + distended (gross ascites) Neurologic/Psych: alert, normal mood/affect, + pertinent finding (oriented to person, place, not time) Skin: normal color, warm/dry, no rash Impression Patient is a 62 year old female who presented to [facility] for outpatient paracentesis for gross abdominal ascites, she was lightheaded and dizzy, BP 69/ 48, similar at recheck. Had 25G 25% albumin and IVF w/ improve of SBP 90's. Continues to remain symptomatic, advise direct admission for further management. Will need to rule out SBP. Plan - CBC, CMP, PT/INR - Urine NA - KUB - Diagnostic Paracentesis, no more than 3L off given hypotension - 25G 25% albumin before and after - cell count, cytology, culture, protein/albumin - if SBP albumin 1.5g/kg x 1 day then 1g/kg albumin on day 3 - Hold diuretics - baseline creat 0.8 - Lactulose 15G TID as tolerated - titrate to 2-3 BMs daily - ETOH abstinence - Continue current dosing of midodrine - Daily weights - Less than 2G NA daily GI will follow with additional recommendations when labs return. I saw and evaluated the patient. She is a history of cirrhosis and was found to be hypotensive this afternoon. She is undergoing an therapeutic paracentesis this afternoon. Physical examination Ill-appearing female, mild cachexia of the face Abdomen protuberant consistent with ascites Impression: Patient with a history of decompensated cirrhosis with complications to include ascites and hypertension. I would suggest obtaining basic labs include a CMP CBC this afternoon. We would also suggest a paracentesis and initiation of albumin 25 g 3 times daily. We will assess the patient tomorrow morning and determine if diuretic should be restarted at a lower dose.
[2017-04-21] MEDS ORDERED: FURO20TA PO (12:15)
[2017-04-21] MEDS ORDERED: FURO40TA3 PO (12:15)
[2017-04-21] MEDS ORDERED: CITA20TA9 PO (12:15)
[2017-04-21] MEDS ORDERED: SPIR25TA PO (12:15)
[2017-04-21] MEDS ORDERED: ALBUTEROL HFA 8 GM INHALER INH PRN (12:30)
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
--- NOTE | 2017-04-21 14:30 | DIAGNOSTIC IMAGING REPORT ---
PARACENTESIS UNDER ULTRASOUND GUIDANCE CLINICAL HISTORY: Ascites. Left lower quadrant abdominal pain. PROCEDURE: The risks, benefits, and alternatives to the procedure were discussed with the patient who voiced understanding. Written informed consent was obtained. Following real-time ultrasound localization of a suitable pocket of fluid in the left lower quadrant, the abdomen was prepped and draped in the usual sterile fashion. The skin and soft tissues were anesthetized with 1% lidocaine. The sheathed paracentesis was inserted and approximately 3 liters of straw- colored ascitic fluid was removed by vacuum suction and sent for laboratory analysis. The procedure was well tolerated and without immediate complication. The patient left the department in satisfactory condition. IMPRESSION: Successful ultrasound-guided paracentesis with removal of approximately 3 liters of ascitic fluid. Electronically signed by: Oleg Owens M.D. 04/21/2017 2:29 PM Dictated Date/Time: 04/21/2017 2:28 PM
--- NOTE | 2017-04-21 14:34 | DIAGNOSTIC IMAGING REPORT ---
CHEST ONE VIEW PORTABLE CLINICAL HISTORY: SOB dyspnea COMPARISON STUDY: No previous studies for comparison. FINDINGS: Atelectasis right base. Small right effusion. Left lung is clear. Remainder the right lung is clear. IMPRESSION: Small right pleural effusion with mild right basilar atelectatic and/or infiltrative change. The above report was generated using voice recognition software. It may contain grammatical, syntax or spelling errors. Electronically signed by: Sai Juarez M.D. 04/21/2017 2:33 PM Dictated Date/Time: 04/21/2017 2:30 PM
--- NOTE | 2017-04-21 14:35 | DIAGNOSTIC IMAGING REPORT ---
KUB CLINICAL HISTORY: Left lower quadrant abdominal pain. Ascites. FINDINGS: 2 AP supine abdominal radiographs are correlated with abdominal CT dated 03/03/2017. There is a nonobstructed abdominal bowel gas pattern. Moderate colonic fecal retention is observed. Density in the pelvis likely corresponds to ascitic fluid. There are no abnormal abdominal calcifications. The lung bases are clear as imaged. The skeletal structures are osteopenic. Mild lumbosacral spondylosis is observed. The bony pelvis appears intact. IMPRESSION: 1. Nonobstructed abdominal bowel gas pattern noting moderate colonic fecal retention. 2. Ascites. Electronically signed by: Oleg Owens M.D. 04/21/2017 2:34 PM Dictated Date/Time: 04/21/2017 2:30 PM
[2017-04-21 14:59] LABS: BASO % 0.6 %; BASO ABS # 0.05 K/uL (0-0.2); COMPLETE YES; EOS % 0.6 %; HEMATOCRIT 28.2 % (37-47); IG% 0.2 %; LYMPH % 30.8 %; LYMPH ABS # 2.62 K/uL (1.2-3.4); MEAN CELL VOLUME 86.2 fL (80-100); MEAN CORPUSCULAR HEMOGLOBIN 29.1 pg (25-34); MEAN CORPUSCULAR HGB CONC 33.7 g/dl (32-36); MEAN PLATELET VOLUME 9.6 fL (7.4-10.4); MONO % 12.7 %; NEUT % 55.1 %; PLATELET COUNT 223 K/uL (130-400); RED BLOOD COUNT 3.27 M/uL (4.2-5.4); WHITE BLOOD COUNT 8.52 K/uL (4.8-10.8)
[2017-04-21 15:07] LABS: INR 1.4 (0.9-1.1)
[2017-04-21 15:17] LABS: CALCIUM 8.2 mg/dl (8.5-10.1); CREATININE 1.08 mg/dl (0.60-1.20); POTASSIUM 3.4 mmol/L (3.5-5.1)
[2017-04-21 15:23] LABS: PERIT FL WBC 94 /uL (0-300); PERITONEAL FLUID RBC < 3000 /uL
[2017-04-21 15:25] VITALS: BP 81/41; PULSE 76; TEMP 36.4; O2SAT 92; Ht 152.4 cm; Wt 55.1 kg
[2017-04-21 15:40] LABS: ALB/GLOB RATIO 0.5 (0.9-2)
[2017-04-21 16:00] VITALS: O2SAT 92
[2017-04-21] MEDS: GABAPENTIN 300 MG CAP PO SCH ×2 (16:21→20:55)
[2017-04-21] MEDS: SODIUM BICARBONATE 650 MG TAB PO SCH ×2 (16:22→20:55)
[2017-04-21] MEDS: MIDODRINE 2.5 MG TAB PO SCH (16:39)
[2017-04-21] MEDS: HYOSCYAMINE SULFATE 0.125 MG SL TAB PO SCH ×2 (16:39→20:54)
[2017-04-21] MEDS ORDERED: POTASSIUM CHLORIDE 10 MEQ TABCR PO STA ×2 (17:07→22:27)
[2017-04-21 17:46] VITALS: BP 91/55; PULSE 84; O2SAT 93
[2017-04-21 18:56] VITALS: BP 84/51; PULSE 84; TEMP 36.7; O2SAT 90
[2017-04-21 20:00] VITALS: O2SAT 90
[2017-04-21] MEDS: LACTULOSE SYRUP 10 GM/15 ML BTL 473 ML PO SCH (20:53)
[2017-04-21] MEDS ORDERED: HEPARIN SOD 5000 UNIT/0.5 ML CARP SQ SCH (21:00)
[2017-04-21] MEDS ORDERED: LACTULOSE SYRUP 10 GM/15 ML BTL 473 ML PO SCH (21:00)
[2017-04-21 21:47] LABS: POTASSIUM 3.3 mmol/L (3.5-5.1)
[2017-04-21 21:48] LABS: MAGNESIUM 1.5 mg/dl (1.8-2.4)
[2017-04-21] MEDS: MAGNESIUM SULFATE 1GM / D5W 1 GM in PREMIXED IN D5W 100 ML IV SCH ×2 (22:14→23:17)
[2017-04-21 23:57] VITALS: BP 83/42; PULSE 80; TEMP 36.7; O2SAT 92
[2017-04-22 00:34] VITALS: BP 93/59; PULSE 82
[2017-04-22 03:24] VITALS: BP 83/51; PULSE 85; TEMP 36.7; O2SAT 90
[2017-04-22 05:20] LABS: HEMATOCRIT 29.2 % (37-47); MEAN CELL VOLUME 86.9 fL (80-100); MEAN CORPUSCULAR HEMOGLOBIN 28.3 pg (25-34); MEAN CORPUSCULAR HGB CONC 32.5 g/dl (32-36); MEAN PLATELET VOLUME 9.8 fL (7.4-10.4); PLATELET COUNT 205 K/uL (130-400); RED BLOOD COUNT 3.36 M/uL (4.2-5.4); WHITE BLOOD COUNT 8.04 K/uL (4.8-10.8)
[2017-04-22 05:30] LABS: INR 1.3 (0.9-1.1)
[2017-04-22 05:58] LABS: ALB/GLOB RATIO 0.6 (0.9-2); BUN/CREATININE RATIO 5.9 (10-20); CALCIUM 7.7 mg/dl (8.5-10.1); CREATININE 1.02 mg/dl (0.60-1.20); POTASSIUM 4.1 mmol/L (3.5-5.1)
[2017-04-22] MEDS: LEVOTHYROXINE 25 MCG TAB PO SCH (06:00)
[2017-04-22 07:15] VITALS: BP 83/43; PULSE 81; TEMP 37; O2SAT 90
[2017-04-22] MEDS: MIDODRINE 2.5 MG TAB PO SCH ×2 (07:56→16:38)
[2017-04-22] MEDS: CITALOPRAM 20 MG TAB PO SCH (07:56)
[2017-04-22] MEDS: LACTULOSE SYRUP 10 GM/15 ML BTL 473 ML PO SCH ×3 (07:57→21:27)
[2017-04-22] MEDS: SODIUM BICARBONATE 650 MG TAB PO SCH ×3 (07:58→21:27)
[2017-04-22] MEDS: HYOSCYAMINE SULFATE 0.125 MG SL TAB PO SCH ×4 (07:58→21:28)
[2017-04-22] MEDS: GABAPENTIN 300 MG CAP PO SCH ×3 (07:59→21:27)
[2017-04-22] MEDS: THIAMINE HCL 100 MG TAB PO SCH (07:59)
--- NOTE | 2017-04-22 09:15 | Gastroenterology Progress Note ---
Progress Note Date of Service: Apr 22, 2017 Subjective Pt evaluation today including: conversation w/ patient, physical exam, chart review, lab review Pt was seen and evaluated, chart reviewed. Had paracentesis yesterday w/ 3L off. No evidence of SBP on labs, culture pending. She notes she feels better this am, has less abdominal distention, no ABD pain. Still is lightheaded and dizzy. Remains hypotensive. No fever, chills, CP, SOB. Kidney function and LFTs ok. Diagnosis: suspected ETOH cirrhosis, sober February 13 Decompensations Ascites: yes, frequent paracentesis despite lasix 60/spironolactone 100 HE: maintained on lactulose Varices: none Screenings MELD: 17 Varices: UTD HCC: UTD Immunization: status unknown Paracentesis 04/21/17: Successful ultrasound-guided paracentesis with removal of approximately 3 liters of ascitic fluid. KUB 04/21/17: Nonobstructed abdominal bowel gas pattern noting moderate colonic fecal retention. Ascites. Chest XR 04/21/17: Small right pleural effusion with mild right basilar atelectatic and/or infiltrative change. Review of Systems Constitutional: No fever, No chills Respiratory: No cough Cardiac: No chest pain Abdomen: No pain, No nausea, No vomiting, No constipation, No GI bleeding Medications Current Inpatient Medications Medications (Trade) Dose Ordered Sig/Shelby Route Start Time Stop Time Status Last Admin Dose Admin Ondansetron HCl (Zofran Inj) 4 mg Q6H PRN IV 04/21/17 12:00 05/21/17 11:59 Albuterol (Ventolin Hfa Inhaler) 2 puffs Q4 PRN INH 04/21/17 12:30 05/21/17 12:29 Citalopram Hydrobromide (celeXA TAB) 20 mg DAILY PO 04/22/17 09:00 05/22/17 08:59 04/22/17 07:56 20 MG Folic Acid (Folvite Tab) 1 mg QAM PO 04/22/17 09:00 05/22/17 08:59 04/22/17 07:58 1 MG Gabapentin (Neurontin Cap) 300 mg TID PO 04/21/17 14:00 05/21/17 13:59 04/22/17 07:59 300 MG Hyoscyamine Sulfate (Levsin Tab) 0.125 mg QID PO 04/21/17 17:00 18 16:59 04/22/17 07:58 0.125 MG Levothyroxine Sodium (Synthroid Tab) 25 mcg DAILYBB PO 04/22/17 06:00 05/22/17 06:59 04/22/17 06:00 25 MCG Midodrine (Proamatine Tab) 5 mg BID@0800,1700 PO 04/21/17 17:00 05/21/17 16:59 04/22/17 07:56 5 MG Sodium Bicarbonate (Sodium Bicarbonate Tab) 650 mg TID PO 04/21/17 14:00 05/21/17 13:59 04/22/17 07:58 650 MG Thiamine HCl (Vitamin B-1 Tab) 100 mg QAM PO 04/22/17 09:00 05/22/17 08:59 04/22/17 07:59 100 MG Lactulose (Chronulac Syrup) 15 gm TID PO 04/21/17 21:00 05/21/17 20:59 04/22/17 07:57 15 GM Objective Vital Signs Date Time Temp Pulse Resp B/P (MAP) Pulse Ox O2 Delivery O2 Flow Rate FiO2 04/22/17 07:15 37.0 81 18 83/43 (56) 90 04/22/17 04:02 Room Air 04/22/17 03:24 36.7 85 20 83/51 (62) 90 Room Air 04/22/17 00:34 82 93/59 (70) 04/22/17 00:00 Room Air 04/21/17 23:57 36.7 80 15 83/42 (56) 92 Room Air 04/21/17 20:00 90 Room Air 04/21/17 18:56 36.7 84 18 84/51 (62) 90 04/21/17 17:46 84 20 91/55 (67) 93 Room Air 04/21/17 16:00 92 Room Air 04/21/17 15:25 36.4 76 20 81/41 92 Room Air 04/21/17 12:59 90 20 111/63 94 Room Air 04/21/17 12:29 90 22 120/60 95 Room Air 04/21/17 12:14 87 20 101/68 93 Room Air 04/21/17 11:59 85 20 103/68 94 Room Air 04/21/17 11:44 86 20 97/64 94 Room Air 04/21/17 11:34 87 16 100/65 95 Room Air 04/21/17 11:25 95/58 04/21/17 11:14 84 25 04/21/17 10:58 83 04/21/17 10:52 36.7 85 18 95/65 96 Room Air Physical Exam General Appearance: no apparent distress, + pertinent finding (chronically ill appearing) Eyes: PERRL ENT: hearing grossly normal Neck: supple Respiratory/Chest: lungs clear Cardiovascular: regular rate, rhythm Abdomen: normal bowel sounds, non tender, soft, no organomegaly Neurologic/Psych: alert, normal mood/affect, oriented x 3 Skin: normal color, warm/dry Laboratory Results Last 24 Hours Test 04/21/17 14:00 04/21/17 14:33 04/21/17 21:16 04/22/17 05:11 Peritoneal Fluid Color YELLOW Peritoneal Fluid Appearance CLEAR Peritoneal Fluid WBC 94 /uL Peritoneal Fluid RBC < 3000 /uL Peritoneal Fld Mononuclear WBCs (%) 90.1 % Peritoneal Fld Polynuclear WBCs (%) 9.9 % Peritoneal Fluid Total Protein 1.1 g/dl Peritoneal Fluid Albumin < 0.6 g/dl White Blood Count 8.52 K/uL 8.04 K/uL Red Blood Count 3.27 M/uL 3.36 M/uL Hemoglobin 9.5 g/dL 9.5 g/dL Hematocrit 28.2 % 29.2 % Mean Corpuscular Volume 86.2 fL 86.9 fL Mean Corpuscular Hemoglobin 29.1 pg 28.3 pg Mean Corpuscular Hemoglobin Concent 33.7 g/dl 32.5 g/dl Platelet Count 223 K/uL 205 K/uL Mean Platelet Volume 9.6 fL 9.8 fL Neutrophils (%) (Auto) 55.1 % Lymphocytes (%) (Auto) 30.8 % Monocytes (%) (Auto) 12.7 % Eosinophils (%) (Auto) 0.6 % Basophils (%) (Auto) 0.6 % Neutrophils # (Auto) 4.70 K/uL Lymphocytes # (Auto) 2.62 K/uL Monocytes # (Auto) 1.08 K/uL Eosinophils # (Auto) 0.05 K/uL Basophils # (Auto) 0.05 K/uL RDW Standard Deviation 53.0 fL 53.5 fL RDW Coefficient of Variation 16.8 % 16.9 % Immature Granulocyte % (Auto) 0.2 % Immature Granulocyte # (Auto) 0.02 K/uL Prothrombin Time 15.0 SECONDS 14.0 SECONDS Prothromb Time International Ratio 1.4 1.3 Sodium Level 132 mmol/L 132 mmol/L Potassium Level 3.4 mmol/L 3.3 mmol/L 4.1 mmol/L Chloride Level 96 mmol/L 100 mmol/L Carbon Dioxide Level 28 mmol/L 30 mmol/L Anion Gap 8.0 mmol/L 2.0 mmol/L Blood Urea Nitrogen 7 mg/dl 6 mg/dl Creatinine 1.08 mg/dl 1.02 mg/dl Est Creatinine Clear Calc Drug Dose 39.3 ml/min 41.6 ml/min Estimated GFR () 64.2 68.8 Estimated GFR (Non- 55.4 59.3 BUN/Creatinine Ratio 6.0 5.9 Random Glucose 70 mg/dl 60 mg/dl Calcium Level 8.2 mg/dl 7.7 mg/dl Total Bilirubin 1.5 mg/dl 1.1 mg/dl Aspartate Amino Transf (AST/SGOT) 22 U/L 26 U/L Alanine Aminotransferase (ALT/SGPT) 13 U/L 12 U/L Alkaline Phosphatase 84 U/L 78 U/L Total Protein 6.6 gm/dl 5.9 gm/dl Albumin 2.3 gm/dl 2.1 gm/dl Globulin 4.3 gm/dl 3.8 gm/dl Albumin/Globulin Ratio 0.5 0.6 Magnesium Level 1.5 mg/dl Test 04/22/17 06:10 Urine Random Sodium 20 mEq/L Assessment and Plan Patient is a 62 year old female who presented to [facility] for outpatient paracentesis for gross abdominal ascites, she was lightheaded and dizzy, BP 69/ 48, similar at recheck. Had 25G 25% albumin and IVF w/ improve of SBP 90's. Continues to remain symptomatic, advise direct admission for further management. No evidence of SBP, peritoneal WBC < 250. Abd pain and distention improved, pressure improving but still endorses lightheadedness, dizziness. MELD 17 Plan - CBC, CMP, PT/INR daily - Diagnostic Paracentesis, no evidence of SBP on labs but will need to follow up culture - 25 G 25% albumin TID - Ok to restart diuretics - baseline creat 0.8 - Lasix 40 mg daily - Spirolactone 100 mg daily - Lactulose 15G TID as tolerated - titrate to 2-3 BMs daily - Increase Midodrine 7.5 G TID - ETOH abstinence - Daily weights - Less than 2G NA daily GI will follow, please call w/ questions or concerns. Dr. Fontenot, [facility] will be covering over the weekend. I saw and evaluated the patient. He notes that she does feel somewhat better today. Recommendations Lasix 40 mg per day Aldactone 100 mg per day Clinic follow-up in 4 weeks or sooner if needed (Patient normally seen by Ms. Bazzi)
[2017-04-22] MEDS: ALBUMIN HUMAN 25% 12.5 GM/50 ML VIAL IV SCH ×3 (10:49→21:26)
[2017-04-22 11:11] VITALS: BP 83/53; PULSE 87; TEMP 36.6; O2SAT 90
[2017-04-22 19:34] VITALS: BP 81/44; PULSE 80; TEMP 36.9; O2SAT 90
--- NOTE | 2017-04-22 19:47 | Progress Note ---
Medicine Progress Note Date & Time of Visit: Apr 22, 2017 at 19:47. Subjective Patient still reports feeling tired and sleepy and still gets dizzy when she stands up. Also complains of dry mouth. She states she has not had a BM since yesterday. No overnight events noted. Tolerating PO. Denies any CP or SOB. Objective Last 8 Hrs Date Time Temp Pulse Resp B/P (MAP) Pulse Ox O2 Delivery O2 Flow Rate FiO2 04/22/17 19:34 36.9 80 18 81/44 (56) 90 Room Air 04/22/17 16:00 Room Air 04/22/17 12:00 Room Air Physical Exam: GENERAL: Patient is in no acute distress. HEENT: No acute trauma, normocephalic, mucous membranes moist, no nasal congestion, no scleral icterus. NECK: No stridor, trachea is midline. LUNGS: Diminished bilaterally, no wheeze, no rhonchi, breath sounds equal. HEART: Without murmurs gallops or rubs, regular rate and rhythm. ABDOMEN: Soft, nontender, bowel sounds positive, + ascites and abdominal distension EXTREMITIES: No cyanosis or edema NEUROLOGIC: Oriented x 3, no acute motor or sensory deficits, no focal weakness. SKIN: No rash, no jaundice, no diaphoresis. Laboratory Results: Last 24 Hours Test 04/21/17 21:16 04/22/17 05:11 04/22/17 06:10 Potassium Level 3.3 mmol/L 4.1 mmol/L Magnesium Level 1.5 mg/dl White Blood Count 8.04 K/uL Red Blood Count 3.36 M/uL Hemoglobin 9.5 g/dL Hematocrit 29.2 % Mean Corpuscular Volume 86.9 fL Mean Corpuscular Hemoglobin 28.3 pg Mean Corpuscular Hemoglobin Concent 32.5 g/dl RDW Standard Deviation 53.5 fL RDW Coefficient of Variation 16.9 % Platelet Count 205 K/uL Mean Platelet Volume 9.8 fL Prothrombin Time 14.0 SECONDS Prothromb Time International Ratio 1.3 Sodium Level 132 mmol/L Chloride Level 100 mmol/L Carbon Dioxide Level 30 mmol/L Anion Gap 2.0 mmol/L Blood Urea Nitrogen 6 mg/dl Creatinine 1.02 mg/dl Est Creatinine Clear Calc Drug Dose 41.6 ml/min Estimated GFR () 68.8 Estimated GFR (Non- 59.3 BUN/Creatinine Ratio 5.9 Random Glucose 60 mg/dl Calcium Level 7.7 mg/dl Total Bilirubin 1.1 mg/dl Aspartate Amino Transf (AST/SGOT) 26 U/L Alanine Aminotransferase (ALT/SGPT) 12 U/L Alkaline Phosphatase 78 U/L Total Protein 5.9 gm/dl Albumin 2.1 gm/dl Globulin 3.8 gm/dl Albumin/Globulin Ratio 0.6 Urine Random Sodium 20 mEq/L Assessment & Plan HYPOTENSION: -BP of 69/48 in [facility] this AM; normally she is hypotensive with systolic in the 80 's -remains symptomatic with dizziness, lightheadedness, fatigue -secondary to intravascular depletion from diuretics, and poor PO intake and lack of albumin/protein -diuretics held, now restarted -monitor on telemetry -midodrine dose increased to 7.5 mg TID DECOMPENSATED CIRRHOSIS: from ETOH USE -marked abdominal ascites on admission, was getting periodic paracentesis to deal with the recurrent ascites -GI consulted; had 3L removed on paracentesis limited due to hypotension; on albumin TID as ordered by GI, restart diuretics tomorrow -lactulose; titrate to 2-3 BMs daily -daily weights HX of ALCOHOL ABUSE: -continue thiamine supplement -continue home gabapentin TID in case of withdrawal -denies drinking since Feb 13 COPD: -not in exacerbation -continue home meds TOBACCO DEPENDANCE: -PRN nicotine patch -smoking cessation encouraged Current Inpatient Medications: Current Inpatient Medications Medications (Trade) Dose Ordered Sig/Shelby Route Start Time Stop Time Status Last Admin Dose Admin Ondansetron HCl (Zofran Inj) 4 mg Q6H PRN IV 04/21/17 12:00 05/21/17 11:59 Albuterol (Ventolin Hfa Inhaler) 2 puffs Q4 PRN INH 04/21/17 12:30 05/21/17 12:29 Citalopram Hydrobromide (celeXA TAB) 20 mg DAILY PO 04/22/17 09:00 05/22/17 08:59 04/22/17 07:56 20 MG Folic Acid (Folvite Tab) 1 mg QAM PO 04/22/17 09:00 05/22/17 08:59 04/22/17 07:58 1 MG Gabapentin (Neurontin Cap) 300 mg TID PO 04/21/17 14:00 05/21/17 13:59 04/22/17 14:06 300 MG Hyoscyamine Sulfate (Levsin Tab) 0.125 mg QID PO 04/21/17 17:00 05/21/17 16:59 04/22/17 16:37 0.125 MG Levothyroxine Sodium (Synthroid Tab) 25 mcg DAILYBB PO 04/22/17 06:00 05/22/17 06:59 04/22/17 06:00 25 MCG Midodrine (Proamatine Tab) 5 mg BID@0800,1700 PO 04/21/17 17:00 05/21/17 16:59 04/22/17 16:38 5 MG Sodium Bicarbonate (Sodium Bicarbonate Tab) 650 mg TID PO 04/21/17 14:00 05/21/17 13:59 04/22/17 14:06 650 MG Thiamine HCl (Vitamin B-1 Tab) 100 mg QAM PO 04/22/17 09:00 05/22/17 08:59 04/22/17 07:59 100 MG Lactulose (Chronulac Syrup) 15 gm TID PO 04/21/17 21:00 05/21/17 20:59 04/22/17 14:00 15 GM Albumin Human (Albumin 25%) 25 gm TID IV 04/22/17 10:00 04/24/17 23:59 04/22/17 14:07 25 GM
[2017-04-22 23:27] VITALS: BP 82/35; PULSE 18; PULSE 82; TEMP 36.9; O2SAT 91
[2017-04-23 03:10] VITALS: BP 92/56; PULSE 84; TEMP 36.7; O2SAT 96
[2017-04-23] MEDS: LEVOTHYROXINE 25 MCG TAB PO SCH (06:40)
[2017-04-23 07:33] VITALS: BP 90/51; PULSE 90; TEMP 36.7; O2SAT 87
[2017-04-23] MEDS: MIDODRINE 2.5 MG TAB PO SCH ×2 (08:47→16:20)
[2017-04-23] MEDS: CITALOPRAM 20 MG TAB PO SCH (08:48)
[2017-04-23] MEDS: SPIRONOLACTONE 100 MG TAB PO SCH (08:48)
[2017-04-23] MEDS: LACTULOSE SYRUP 10 GM/15 ML BTL 473 ML PO SCH ×3 (08:48→21:26)
[2017-04-23] MEDS: HYOSCYAMINE SULFATE 0.125 MG SL TAB PO SCH ×4 (08:49→21:27)
[2017-04-23] MEDS: SODIUM BICARBONATE 650 MG TAB PO SCH ×3 (08:49→21:26)
[2017-04-23] MEDS: FUROSEMIDE 40 MG TAB PO SCH (08:49)
[2017-04-23] MEDS: GABAPENTIN 300 MG CAP PO SCH ×3 (08:49→21:27)
[2017-04-23] MEDS: THIAMINE HCL 100 MG TAB PO SCH (08:50)
[2017-04-23] MEDS: ALBUMIN HUMAN 25% 12.5 GM/50 ML VIAL IV SCH ×3 (08:58→20:22)
[2017-04-23 11:41] VITALS: BP 91/52; PULSE 70; TEMP 36.7; O2SAT 94
[2017-04-23 11:43] VITALS: BP 125/57; PULSE 70; TEMP 37; O2SAT 91
[2017-04-23 16:30] VITALS: BP 89/57; PULSE 70; TEMP 36.9; O2SAT 96
--- NOTE | 2017-04-23 19:53 | Progress Note ---
Medicine Progress Note Date & Time of Visit: Apr 23, 2017 at 19:53. Subjective Patient denies any complaints, still gets some lightheadedness when she first gets up and stand but it dissipates. No overnight events noted. Tolerating PO but appetite is poor. Objective Last 8 Hrs Date Time Temp Pulse Resp B/P (MAP) Pulse Ox O2 Delivery O2 Flow Rate FiO2 04/23/17 16:30 36.9 70 18 89/57 (68) 96 Nasal Cannula 2.0 04/23/17 16:00 Room Air 04/23/17 12:00 Room Air Physical Exam: GENERAL: Patient is in no acute distress. HEENT: No acute trauma, normocephalic, mucous membranes moist, no nasal congestion, no scleral icterus. NECK: No stridor, trachea is midline. LUNGS: Diminished bilaterally, no wheeze, no rhonchi, breath sounds equal. HEART: Without murmurs gallops or rubs, regular rate and rhythm. ABDOMEN: Soft, nontender, bowel sounds positive, + ascites and abdominal distension EXTREMITIES: No cyanosis or edema NEUROLOGIC: Oriented x 3, no acute motor or sensory deficits, no focal weakness. SKIN: No rash, no jaundice, no diaphoresis. Assessment & Plan HYPOTENSION: -BP of 69/48 in [facility]; normally she is hypotensive with systolic in the 80's -remains symptomatic with dizziness, lightheadedness, fatigue -secondary to intravascular depletion from diuretics, and poor PO intake and lack of albumin/protein -diuretics held, now restarted -monitor on telemetry -midodrine dose increased DECOMPENSATED CIRRHOSIS: from ETOH USE -marked abdominal ascites on admission, was getting periodic paracentesis to deal with the recurrent ascites -GI consulted; had 3L removed on paracentesis limited due to hypotension; on albumin TID as ordered by GI, restart diuretics tomorrow -lactulose; titrate to 2-3 BMs daily; has not been having more than 1 BM a day; will need dose adjustment accordingly -daily weights HX of ALCOHOL ABUSE: -continue thiamine supplement -continue home gabapentin TID in case of withdrawal -denies drinking since Feb 13 COPD: -not in exacerbation -continue home meds TOBACCO DEPENDANCE: -PRN nicotine patch -smoking cessation encouraged Current Inpatient Medications: Current Inpatient Medications Medications (Trade) Dose Ordered Sig/Shelby Route Start Time Stop Time Status Last Admin Dose Admin Ondansetron HCl (Zofran Inj) 4 mg Q6H PRN IV 04/21/17 12:00 05/21/17 11:59 Albuterol (Ventolin Hfa Inhaler) 2 puffs Q4 PRN INH 04/21/17 12:30 05/21/17 12:29 Citalopram Hydrobromide (celeXA TAB) 20 mg DAILY PO 04/22/17 09:00 05/22/17 08:59 04/23/17 08:48 20 MG Folic Acid (Folvite Tab) 1 mg QAM PO 04/22/17 09:00 05/22/17 08:59 04/23/17 08:48 1 MG Gabapentin (Neurontin Cap) 300 mg TID PO 04/21/17 14:00 05/21/17 13:59 04/23/17 14:42 300 MG Hyoscyamine Sulfate (Levsin Tab) 0.125 mg QID PO 04/21/17 17:00 05/21/17 16:59 04/23/17 16:21 0.125 MG Levothyroxine Sodium (Synthroid Tab) 25 mcg DAILYBB PO 04/22/17 06:00 05/22/17 06:59 04/23/17 06:40 25 MCG Midodrine (Proamatine Tab) 5 mg BID@0800,1700 PO 04/21/17 17:00 05/21/17 16:59 04/23/17 16:20 5 MG Sodium Bicarbonate (Sodium Bicarbonate Tab) 650 mg TID PO 04/21/17 14:00 05/21/17 13:59 04/23/17 14:42 650 MG Thiamine HCl (Vitamin B-1 Tab) 100 mg QAM PO 04/22/17 09:00 05/22/17 08:59 04/23/17 08:50 100 MG Lactulose (Chronulac Syrup) 15 gm TID PO 04/21/17 21:00 05/21/17 20:59 04/23/17 08:48 15 GM Albumin Human (Albumin 25%) 25 gm TID IV 04/22/17 10:00 04/24/17 23:59 04/23/17 14:43 25 GM Furosemide (Lasix Tab) 40 mg DAILY PO 04/23/17 09:00 05/23/17 08:59 04/23/17 08:49 40 MG Spironolactone (Aldactone Tab) 100 mg DAILY PO 04/23/17 09:00 05/23/17 08:59 04/23/17 08:48 100 MG
[2017-04-23 20:05] VITALS: BP 80/40; PULSE 79; TEMP 36.6; O2SAT 94
[2017-04-23] MEDS: ONDANSETRON INJ 2 MG/ML 2 ML VIAL IV PRN (20:21)
[2017-04-24] VITALS (8 sets, daily range): BP systolic 68–93; BP diastolic 35–58; PULSE 64–78; TEMP 36.6–37; O2SAT 90–97
[2017-04-24] MEDS ORDERED: TRAMADOL HCL 50 MG TAB PO ONE (04:15)
[2017-04-24 05:51] LABS: HEMATOCRIT 25.3 % (37-47); MEAN CELL VOLUME 86.6 fL (80-100); MEAN CORPUSCULAR HEMOGLOBIN 28.4 pg (25-34); MEAN CORPUSCULAR HGB CONC 32.8 g/dl (32-36); MEAN PLATELET VOLUME 9.9 fL (7.4-10.4); PLATELET COUNT 176 K/uL (130-400); RED BLOOD COUNT 2.92 M/uL (4.2-5.4); WHITE BLOOD COUNT 5.67 K/uL (4.8-10.8)
[2017-04-24] MEDS: LEVOTHYROXINE 25 MCG TAB PO SCH (06:07)
[2017-04-24 06:19] LABS: BUN/CREATININE RATIO 5.3 (10-20); CALCIUM 8.5 mg/dl (8.5-10.1); CREATININE 1.03 mg/dl (0.60-1.20); POTASSIUM 3.7 mmol/L (3.5-5.1)
[2017-04-24] MEDS: FUROSEMIDE 40 MG TAB PO SCH (09:00)
[2017-04-24] MEDS: CITALOPRAM 20 MG TAB PO SCH (09:14)
[2017-04-24] MEDS: SPIRONOLACTONE 100 MG TAB PO SCH (09:14)
[2017-04-24] MEDS: MIDODRINE 2.5 MG TAB PO SCH ×3 (09:14→17:47)
[2017-04-24] MEDS: HYOSCYAMINE SULFATE 0.125 MG SL TAB PO SCH ×4 (09:15→21:13)
[2017-04-24] MEDS: LACTULOSE SYRUP 10 GM/15 ML BTL 473 ML PO SCH ×3 (09:15→21:12)
[2017-04-24] MEDS: GABAPENTIN 300 MG CAP PO SCH ×3 (09:16→21:13)
[2017-04-24] MEDS: SODIUM BICARBONATE 650 MG TAB PO SCH ×3 (09:16→21:13)
[2017-04-24] MEDS: THIAMINE HCL 100 MG TAB PO SCH (09:16)
[2017-04-24] MEDS: ALBUMIN HUMAN 25% 12.5 GM/50 ML VIAL IV SCH ×3 (09:25→21:12)
--- NOTE | 2017-04-24 19:51 | Progress Note ---
Medicine Progress Note Date & Time of Visit: Apr 24, 2017 at 19:51. Subjective Patient reports feeling very sleepy today, states she has lost track of time. No overnight events noted. Denies any dizziness or lightheadedness. BP was low this AM but patient remains asymptomatic. Objective Last 8 Hrs Date Time Temp Pulse Resp B/P (MAP) Pulse Ox O2 Delivery O2 Flow Rate FiO2 04/24/17 16:00 Room Air 04/24/17 15:20 36.6 67 18 83/53 (63) 97 Nasal Cannula 2.0 04/24/17 12:00 Room Air Physical Exam: GENERAL: Patient is in no acute distress. HEENT: No acute trauma, normocephalic, mucous membranes moist, no nasal congestion, no scleral icterus. NECK: No stridor, trachea is midline. LUNGS: Diminished bilaterally, no wheeze, no rhonchi, breath sounds equal. HEART: Without murmurs gallops or rubs, regular rate and rhythm. ABDOMEN: Soft, nontender, bowel sounds positive, + ascites and abdominal distension EXTREMITIES: No cyanosis or edema NEUROLOGIC: Oriented x 3, no acute motor or sensory deficits, no focal weakness. SKIN: No rash, no jaundice, no diaphoresis. Laboratory Results: Last 24 Hours Test 04/24/17 05:16 04/24/17 11:24 White Blood Count 5.67 K/uL Red Blood Count 2.92 M/uL Hemoglobin 8.3 g/dL Hematocrit 25.3 % Mean Corpuscular Volume 86.6 fL Mean Corpuscular Hemoglobin 28.4 pg Mean Corpuscular Hemoglobin Concent 32.8 g/dl RDW Standard Deviation 53.8 fL RDW Coefficient of Variation 16.8 % Platelet Count 176 K/uL Mean Platelet Volume 9.9 fL Sodium Level 136 mmol/L Potassium Level 3.7 mmol/L Chloride Level 102 mmol/L Carbon Dioxide Level 28 mmol/L Anion Gap 6.0 mmol/L Blood Urea Nitrogen 6 mg/dl Creatinine 1.03 mg/dl Est Creatinine Clear Calc Drug Dose 41.2 ml/min Estimated GFR () 67.9 Estimated GFR (Non- 58.6 BUN/Creatinine Ratio 5.3 Random Glucose 55 mg/dl Calcium Level 8.5 mg/dl Bedside Glucose 89 mg/dl Assessment & Plan HYPOTENSION: -BP of 69/48 in [facility]; normally she is hypotensive with systolic in the 80's -remains symptomatic with dizziness, lightheadedness, fatigue -secondary to intravascular depletion from diuretics, and poor PO intake and lack of albumin/protein -diuretics held, now restarted but was held this AM due to SBP 68 this morning -monitor on telemetry -midodrine 5 mg increased to TID, dose can be increased further to 7.5 DECOMPENSATED CIRRHOSIS: from ETOH USE -marked abdominal ascites on admission, was getting periodic paracentesis to deal with the recurrent ascites -GI consulted; had 3L removed on paracentesis limited due to hypotension; on albumin TID as ordered by GI, restart diuretics tomorrow -lactulose; titrate to 2-3 BMs daily; has not been having more than 1 BM a day and none today; will need dose adjustment accordingly -daily weights -check ammonia level HX of ALCOHOL ABUSE: -continue thiamine supplement -continue home gabapentin TID in case of withdrawal -denies drinking since Feb 13 COPD: -not in exacerbation -continue home meds TOBACCO DEPENDANCE: -PRN nicotine patch -smoking cessation encouraged Current Inpatient Medications: Current Inpatient Medications Medications (Trade) Dose Ordered Sig/Shelby Route Start Time Stop Time Status Last Admin Dose Admin Ondansetron HCl (Zofran Inj) 4 mg Q6H PRN IV 04/21/17 12:00 05/21/17 11:59 04/23/17 20:21 4 MG Albuterol (Ventolin Hfa Inhaler) 2 puffs Q4 PRN INH 04/21/17 12:30 05/21/17 12:29 Citalopram Hydrobromide (celeXA TAB) 20 mg DAILY PO 04/22/17 09:00 05/22/17 08:59 04/24/17 09:14 20 MG Folic Acid (Folvite Tab) 1 mg QAM PO 04/22/17 09:00 05/22/17 08:59 04/24/17 09:15 1 MG Gabapentin (Neurontin Cap) 300 mg TID PO 04/21/17 14:00 05/21/17 13:59 04/24/17 14:19 300 MG Hyoscyamine Sulfate (Levsin Tab) 0.125 mg QID PO 04/21/17 17:00 05/21/17 16:59 12/10/17 17:47 0.125 MG Levothyroxine Sodium (Synthroid Tab) 25 mcg DAILYBB PO 04/22/17 06:00 05/22/17 06:59 04/24/17 06:07 25 MCG Sodium Bicarbonate (Sodium Bicarbonate Tab) 650 mg TID PO 04/21/17 14:00 05/21/17 13:59 04/24/17 14:20 650 MG Thiamine HCl (Vitamin B-1 Tab) 100 mg QAM PO 04/22/17 09:00 05/22/17 08:59 04/24/17 09:16 100 MG Lactulose (Chronulac Syrup) 15 gm TID PO 04/21/17 21:00 05/21/17 20:59 04/24/17 14:19 15 GM Albumin Human (Albumin 25%) 25 gm TID IV 04/22/17 10:00 04/24/17 23:59 04/24/17 14:19 25 GM Furosemide (Lasix Tab) 40 mg DAILY PO 04/23/17 09:00 05/23/17 08:59 04/23/17 08:49 40 MG Spironolactone (Aldactone Tab) 100 mg DAILY PO 04/23/17 09:00 05/23/17 08:59 04/24/17 09:14 100 MG Midodrine (Proamatine Tab) 5 mg TID@0800,1200,1700 PO 04/24/17 13:00 05/24/17 12:59 04/24/17 17:47 5 MG
[2017-04-25] VITALS (8 sets, daily range): BP systolic 69–149; BP diastolic 37–74; PULSE 70–97; TEMP 36.4–37.4; O2SAT 94–95
[2017-04-25] MEDS: LEVOTHYROXINE 25 MCG TAB PO SCH (06:22)
[2017-04-25] MEDS: GABAPENTIN 300 MG CAP PO SCH ×3 (07:54→21:13)
[2017-04-25] MEDS: SODIUM BICARBONATE 650 MG TAB PO SCH ×3 (07:55→21:13)
[2017-04-25] MEDS: THIAMINE HCL 100 MG TAB PO SCH (07:55)
[2017-04-25] MEDS: CITALOPRAM 20 MG TAB PO SCH (07:56)
[2017-04-25] MEDS: HYOSCYAMINE SULFATE 0.125 MG SL TAB PO SCH ×4 (07:56→21:13)
[2017-04-25] MEDS: MIDODRINE 2.5 MG TAB PO SCH ×3 (07:57→17:20)
[2017-04-25] MEDS: LACTULOSE SYRUP 10 GM/15 ML BTL 473 ML PO SCH ×3 (07:58→21:13)
[2017-04-25] MEDS ORDERED: NURSING VERBAL MED ORDER ONE ×2 (08:30→22:00)
[2017-04-25] MEDS: SPIRONOLACTONE 100 MG TAB PO SCH (09:32)
--- NOTE | 2017-04-25 11:50 | Gastroenterology Progress Note ---
Progress Note Date of Service: Apr 25, 2017 Subjective Pt evaluation today including: conversation w/ patient, physical exam, chart review, lab review Pt was seen and evaluated, chart reviewed. No acute events over the weekend. Pt tells me this AM she feels well. She is alert, oriented x 3. Only had one BM yesterday, no black or bloody stools. No longer having any abdominal pain. No reaccumulation of abdominal fluid. No fever, chills, CP, SOB. She is not lightheaded, dizzy. BP 81/52 this AM. Diagnosis: suspected ETOH cirrhosis, sober February 13 Decompensations Ascites: yes, frequent paracentesis despite lasix 60/spironolactone 100 HE: maintained on lactulose Varices: none Screenings MELD: 17 Varices: UTD HCC: UTD Immunization: status unknown Paracentesis 04/21/17: Successful ultrasound-guided paracentesis with removal of approximately 3 liters of ascitic fluid. KUB 04/21/17: Nonobstructed abdominal bowel gas pattern noting moderate colonic fecal retention. Ascites. Chest XR 04/21/17: Small right pleural effusion with mild right basilar atelectatic and/or infiltrative change. Review of Systems Constitutional: No fever, No chills Respiratory: No cough, No shortness of breath Cardiac: No chest pain Abdomen: No pain, No nausea, No vomiting, No diarrhea, No constipation Medications Current Inpatient Medications Medications (Trade) Dose Ordered Sig/Shelby Route Start Time Stop Time Status Last Admin Dose Admin Ondansetron HCl (Zofran Inj) 4 mg Q6H PRN IV 04/21/17 12:00 05/21/17 11:59 04/23/17 20:21 4 MG Albuterol (Ventolin Hfa Inhaler) 2 puffs Q4 PRN INH 04/21/17 12:30 05/21/17 12:29 Citalopram Hydrobromide (celeXA TAB) 20 mg DAILY PO 04/22/17 09:00 05/22/17 08:59 04/25/17 07:56 20 MG Folic Acid (Folvite Tab) 1 mg QAM PO 04/22/17 09:00 05/22/17 08:59 04/25/17 07:54 1 MG Gabapentin (Neurontin Cap) 300 mg TID PO 04/21/17 14:00 05/21/17 13:59 04/25/17 07:54 300 MG Hyoscyamine Sulfate (Levsin Tab) 0.125 mg QID PO 04/21/17 17:00 05/21/17 16:59 04/25/17 07:56 0.125 MG Levothyroxine Sodium (Synthroid Tab) 25 mcg DAILYBB PO 04/22/17 06:00 05/22/17 06:59 04/25/17 06:22 25 MCG Sodium Bicarbonate (Sodium Bicarbonate Tab) 650 mg TID PO 04/21/17 14:00 05/21/17 13:59 04/25/17 07:55 650 MG Thiamine HCl (Vitamin B-1 Tab) 100 mg QAM PO 04/22/17 09:00 05/22/17 08:59 04/25/17 07:55 100 MG Lactulose (Chronulac Syrup) 15 gm TID PO 04/21/17 21:00 05/21/17 20:59 04/25/17 07:58 15 GM Furosemide (Lasix Tab) 40 mg DAILY PO 04/23/17 09:00 05/23/17 08:59 Future hold 04/23/17 08:49 40 MG Spironolactone (Aldactone Tab) 100 mg DAILY PO 04/23/17 09:00 05/23/17 08:59 04/25/17 09:32 100 MG Midodrine (Proamatine Tab) 5 mg TID@0800,1200,1700 PO 04/24/17 13:00 05/24/17 12:59 04/25/17 07:57 5 MG Objective Vital Signs Date Time Temp Pulse Resp B/P (MAP) Pulse Ox O2 Delivery O2 Flow Rate FiO2 04/25/17 11:32 36.6 97 16 81/52 (62) 95 Nasal Cannula 04/25/17 07:49 36.6 76 16 69/37 (48) 95 04/25/17 07:45 Nasal Cannula 1.0 04/25/17 04:00 Nasal Cannula 2.0 04/25/17 03:46 36.7 71 17 87/43 (58) 94 Room Air 2.0 04/24/17 23:59 Nasal Cannula 2.0 04/24/17 23:43 36.7 71 18 93/48 (63) 90 Nasal Cannula 2.0 04/24/17 20:00 Nasal Cannula 2.0 04/24/17 19:35 36.6 64 20 81/47 (58) 97 Nasal Cannula 2.0 04/24/17 16:00 Room Air 04/24/17 15:20 36.6 67 18 83/53 (63) 97 Nasal Cannula 2.0 04/24/17 12:00 Room Air Physical Exam General Appearance: no apparent distress Eyes: PERRL ENT: hearing grossly normal Neck: supple Respiratory/Chest: lungs clear, normal breath sounds Cardiovascular: regular rate, rhythm Abdomen: normal bowel sounds, non tender, soft, no organomegaly Neurologic/Psych: alert, normal mood/affect, oriented x 3 Skin: normal color, warm/dry Laboratory Results Last 24 Hours Test 04/25/17 06:25 Ammonia 22.0 umol/L Assessment and Plan Patient is a 62 year old female who presented to [facility] for outpatient paracentesis for gross abdominal ascites, she was lightheaded and dizzy, BP 69/ 48, similar at recheck. Had 25G 25% albumin and IVF w/ improve of SBP 90's. Continues to remain symptomatic, advise direct admission for further management. No evidence of SBP, peritoneal WBC < 250. Abd pain and distention improved, pressure improving but still endorses lightheadedness, dizziness. MELD 17. Diuretics were resumed, pt tolerated well. NO GI contraindication to discharge, GI to sign off - OK to stop albumin - Lasix 40 mg daily - Spironolactone 100 mg daily - Increase to Lactulose 30G TID as tolerated - titrate to 2-3 BMs daily - Increase Midodrine 7.5 G TID - ETOH abstinence - Daily weights - Less than 2G NA daily - Outpatient GI follow up I performed a history and physical examination of the patient, I have discussed the patient's management with Susannah. Please refer to the [facility]'s note for the documented findings and plan of care. Monitor clinically. Follow up in GI clinic. May need OP LVP if resistant to diuretics.
[2017-04-25] MEDS ORDERED: PRMT25 PO (12:59)
[2017-04-25] MEDS ORDERED: LCTS240 PO (12:59)
--- NOTE | 2017-04-25 17:33 | Progress Note ---
Medicine Progress Note Date & Time of Visit: Apr 25, 2017 at 17:33. Subjective Patient reports feeling slightly dizzy with standing and rapid changes in position. No other complaints other than having dry mouth and still feeling sleepy all the time. No overnight events noted. Has been having 0-1 bm each day. Objective Last 8 Hrs Date Time Temp Pulse Resp B/P (MAP) Pulse Ox O2 Delivery O2 Flow Rate FiO2 04/25/17 16:16 37.0 70 18 89/53 (65) 95 Nasal Cannula 3.0 04/25/17 16:10 Nasal Cannula 3.0 04/25/17 13:55 36.6 97 16 95 Nasal Cannula 04/25/17 12:05 Nasal Cannula 1.0 04/25/17 11:32 36.6 97 16 81/52 (62) 95 Nasal Cannula Physical Exam: GENERAL: Patient is in no acute distress. HEENT: No acute trauma, normocephalic, mucous membranes moist, no nasal congestion, no scleral icterus. NECK: No stridor, trachea is midline. LUNGS: Diminished bilaterally, no wheeze, no rhonchi, breath sounds equal. HEART: Without murmurs gallops or rubs, regular rate and rhythm. ABDOMEN: Soft, nontender, bowel sounds positive, + ascites and abdominal distension EXTREMITIES: No cyanosis or edema NEUROLOGIC: Oriented x 3, no acute motor or sensory deficits, no focal weakness. SKIN: No rash, no jaundice, no diaphoresis. Laboratory Results: Last 24 Hours Test 04/25/17 06:25 Ammonia 22.0 umol/L Assessment & Plan HYPOTENSION: -BP of 69/48 in [facility]; normally she is hypotensive with systolic in the 80's -remains symptomatic with dizziness, lightheadedness, fatigue intermittently -secondary to intravascular depletion from diuretics, and poor PO intake and lack of albumin/protein -diuretics held, now restarted but was held this AM due to SBP 68 this morning -monitor on telemetry -midodrine 5 mg increased to TID, dose can be increased further to 7.5 TID DECOMPENSATED CIRRHOSIS: from ETOH USE -marked abdominal ascites on admission, was getting periodic paracentesis to help with the recurrent ascites -GI consulted; had 3L removed on paracentesis limited due to hypotension; on albumin TID as ordered by GI, restart diuretics tomorrow -lactulose; titrate to 2-3 BMs daily; has not been having more than 1 BM a day; will need dose adjusted to TID but still no significant changes to bowels -daily weights - ammonia level: 22 -requiring oxygen, likely related to not being on diuretics, no symptoms to suggest copd exacerbation, will need home oxygen HX of ALCOHOL ABUSE: -continue thiamine supplement -continue home gabapentin TID in case of withdrawal -denies drinking since Feb 13 COPD: -not in exacerbation -continue home meds TOBACCO DEPENDANCE: -nicotine patch -smoking cessation encouraged Current Inpatient Medications: Current Inpatient Medications Medications (Trade) Dose Ordered Sig/Shelby Route Start Time Stop Time Status Last Admin Dose Admin Ondansetron HCl (Zofran Inj) 4 mg Q6H PRN IV 04/21/17 12:00 05/21/17 11:59 04/23/17 20:21 4 MG Albuterol (Ventolin Hfa Inhaler) 2 puffs Q4 PRN INH 04/21/17 12:30 05/21/17 12:29 Citalopram Hydrobromide (celeXA TAB) 20 mg DAILY PO 04/22/17 09:00 05/22/17 08:59 04/25/17 07:56 20 MG Folic Acid (Folvite Tab) 1 mg QAM PO 04/22/17 09:00 05/22/17 08:59 04/25/17 07:54 1 MG Gabapentin (Neurontin Cap) 300 mg TID PO 04/21/17 14:00 05/21/17 13:59 04/25/17 13:15 300 MG Hyoscyamine Sulfate (Levsin Tab) 0.125 mg QID PO 04/21/17 17:00 05/21/17 16:59 04/25/17 17:20 0.125 MG Levothyroxine Sodium (Synthroid Tab) 25 mcg DAILYBB PO 04/22/17 06:00 05/22/17 06:59 04/25/17 06:22 25 MCG Sodium Bicarbonate (Sodium Bicarbonate Tab) 650 mg TID PO 04/21/17 14:00 05/21/17 13:59 04/25/17 13:15 650 MG Thiamine HCl (Vitamin B-1 Tab) 100 mg QAM PO 04/22/17 09:00 05/22/17 08:59 04/25/17 07:55 100 MG Lactulose (Chronulac Syrup) 15 gm TID PO 04/21/17 21:00 05/21/17 20:59 04/25/17 13:15 15 GM Furosemide (Lasix Tab) 40 mg DAILY PO 04/23/17 09:00 05/23/17 08:59 Future hold 04/23/17 08:49 40 MG Spironolactone (Aldactone Tab) 100 mg DAILY PO 04/23/17 09:00 05/23/17 08:59 04/25/17 09:32 100 MG Midodrine (Proamatine Tab) 5 mg TID@0800,1200,1700 PO 04/24/17 13:00 05/24/17 12:59 04/25/17 17:20 5 MG
--- NOTE | 2017-04-25 17:40 | Discharge Instructions ---
Discharge Instructions Date of Service Apr 25, 2017. Admission Reason for Admission: Decompensation Of Cirrhosis Of Liver, Hypotension Discharge Discharge Diagnosis / Problem: Hypotension, decompensated liver disease Discharge Goals Goal(s): Therapeutic intervention Activity Recommendations Activity Limitations: resume your previous activity Please do not smoke; you are now on oxygen continuously and the oxygen is highly flammable . Instructions / Follow-Up Instructions / Follow-Up Please see Dr. Khanna on April 28 at 2:05PM for hospital follow up Please follow up with GI as scheduled Current Hospital Diet Patient's current hospital diet: Low Sodium Diet (2gm Na) Discharge Diet Recommended Diet: Low Sodium Diet (2gm Na) Pending Studies Studies pending at discharge: no Medical Emergencies . Who to Call and When: Medical Emergencies: If at any time you feel your situation is an emergency, please call 911 immediately. . Non-Emergent Contact Non-Emergency issues call your: Primary Care Provider, Family Law Legal Assistant . . "Provider Documentation" section prepared by Angelita Wallace. . VTE Core Measure Inpt VTE Proph given/why not?: SCD's
[2017-04-25] MEDS: NICOTINE 14 MG/24 HR TDSY TD SCH (18:01)
[2017-04-25] MEDS ORDERED: TRAMADOL HCL 50 MG TAB PO ONE (22:00)
[2017-04-25] MEDS: ONDANSETRON INJ 2 MG/ML 2 ML VIAL IV PRN (23:44)
[2017-04-26 03:43] VITALS: BP 93/55; PULSE 77; TEMP 37.2; O2SAT 95
[2017-04-26] MEDS: LEVOTHYROXINE 25 MCG TAB PO SCH (06:15)
[2017-04-26 07:35] VITALS: BP 92/61; PULSE 70; TEMP 37.2; O2SAT 96
[2017-04-26] MEDS: CITALOPRAM 20 MG TAB PO SCH (07:51)
[2017-04-26] MEDS: FUROSEMIDE 40 MG TAB PO SCH (07:52)
[2017-04-26] MEDS: HYOSCYAMINE SULFATE 0.125 MG SL TAB PO SCH ×2 (07:52→12:18)
[2017-04-26] MEDS: SPIRONOLACTONE 100 MG TAB PO SCH (07:52)
[2017-04-26] MEDS: GABAPENTIN 300 MG CAP PO SCH ×2 (07:53→14:46)
[2017-04-26] MEDS: MIDODRINE 2.5 MG TAB PO SCH ×2 (07:53→12:19)
[2017-04-26] MEDS: SODIUM BICARBONATE 650 MG TAB PO SCH ×2 (07:53→14:46)
[2017-04-26] MEDS: LACTULOSE SYRUP 10 GM/15 ML BTL 473 ML PO SCH ×2 (07:53→14:46)
[2017-04-26] MEDS: THIAMINE HCL 100 MG TAB PO SCH (07:54)
[2017-04-26] MEDS: NICOTINE 14 MG/24 HR TDSY TD SCH (07:55)
--- NOTE | 2017-04-26 10:56 | Progress Note ---
Internal Med Progress Note Date of Service: Apr 26, 2017. Provider Documentation: SUBJECTIVE: The patient was seen and examined Has had some stomach upset last night Feels a lot better this morning Will go home this afternoon OBJECTIVE: Vital Signs-as noted below Exam: General-No distress at rest Eyes-normal ENT-normal Neck-supple Lungs-Clear to auscultate bilaterally Heart-Regular,no murmur appreciated Abdomen-Distended,soft ,no masses,moderate ascites,bowel sound present Extremities-Trace edema bilaterally Neuro-AAOx3 Lab data as noted below. ASSESSMENT & PLAN: HYPOTENSION:Symptomatic-with dizziness, lightheadedness, fatigue intermittently -BP of 69/48 in [facility]; normally she is hypotensive with systolic in the 80's -secondary to intravascular depletion from diuretics, and poor PO intake and lack of albumin/protein -Received IV Albumin -No arrhythmia on Tele -midodrine 5 mg increased to TID, dose can be increased further to 7.5 TID -BP is stable for her this morning DECOMPENSATED CIRRHOSIS: from ETOH USE -marked abdominal ascites on admission, was getting periodic paracentesis to help with the recurrent ascites -GI consulted; had 3L removed on paracentesis limited due to hypotension; on albumin TID as ordered by GI -Lasix Restarted subsequently -lactulose; titrate to 2-3 BMs daily; has not been having more than 1 BM a day; will need dose adjusted to TID but still no significant changes to bowels -SOB on exertion -2 steps done-will need 3 liters on ambulation HX of ALCOHOL ABUSE: -continue thiamine supplement -continue home gabapentin TID in case of withdrawal -denies drinking since Feb 13 COPD: -not in exacerbation -continue home meds TOBACCO DEPENDANCE: -nicotine patch -smoking cessation encouraged DISPOSITION Discharge home today Vital Signs: Date Time Temp Pulse Resp B/P (MAP) Pulse Ox O2 Delivery O2 Flow Rate FiO2 04/26/17 08:00 Nasal Cannula 3.0 04/26/17 07:35 37.2 70 18 92/61 (71) 96 04/26/17 04:00 Nasal Cannula 3.0 04/26/17 03:43 37.2 77 18 93/55 (68) 95 Nasal Cannula 2.0 04/25/17 23:56 Nasal Cannula 3.0 04/25/17 23:30 37.4 78 16 86/55 (65) 95 Nasal Cannula 3.0 04/25/17 21:13 90/51 (64) 04/25/17 19:46 37.0 73 18 83/39 (54) 95 Nasal Cannula 2.0 04/25/17 19:30 Nasal Cannula 3.0 04/25/17 16:16 37.0 70 18 89/53 (65) 95 Nasal Cannula 3.0 04/25/17 16:10 Nasal Cannula 3.0 04/25/17 13:55 36.6 97 16 95 Nasal Cannula 04/25/17 12:05 Nasal Cannula 1.0 04/25/17 11:32 36.6 97 16 81/52 (62) 95 Nasal Cannula
[2017-04-26 11:26] VITALS: BP 90/48; PULSE 74; TEMP 37; O2SAT 99
[2017-04-26] MEDS ORDERED: OXGN (13:58)
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
== END 2017-04-26 15:29 | disposition home health service (06) | DRG 312 ==
LOC: EDBD 10:44 → C.EDC 10:47 → C.2T 11:58 → ENRESERV 13:15
PROVIDERS: ADMIT Internal Medicine; ATTEND Internal Medicine
PROC: 0W9G3ZX Drainage of Peritoneal Cavity, Percutaneous Approach, Diagnostic (ICD-10-PCS; principal; 2017-04-21)
DX: I95.2 Hypotension due to drugs (principal); T50.2X5A Adverse effect of carbonic-anhydrase inhibitors, benzothiadiazides and other diuretics, initial encounter; K70.31 Alcoholic cirrhosis of liver with ascites; F10.21 Alcohol dependence, in remission; J44.9 Chronic obstructive pulmonary disease, unspecified; F17.210 Nicotine dependence, cigarettes, uncomplicated; G40.909 Epilepsy, unspecified, not intractable, without status epilepticus; B18.2 Chronic viral hepatitis C; Z86.14 Personal history of Methicillin resistant Staphylococcus aureus infection; Z79.899 Other long term (current) drug therapy; Z81.8 Family history of other mental and behavioral disorders

== ENCOUNTER 2017-05-03 14:11 | Inpatient (IN) | payer OTHER ==
[~2017-05-03] VITALS: Ht 152.4 cm; Wt 49.7 kg
[~2017-05-03 14:11] MED LIST changes: +CITA20TA9 PO; -FRS/40 PO; +FURO40TA3 PO; +OXGN; +SPIR25TA PO; -SPIR50TA3 PO
--- NOTE | 2017-05-03 15:07 | EMERGENCY ROOM VISIT NOTE ---
History Report prepared by Merrill: Maurizio Alaniz Under the Supervision of: Dr. Grady Gifford D.O. First contact with patient: 14:24 Chief Complaint: ABDOMINAL PAIN Stated Complaint: ABDOMINAL PAIN Nursing Triage Summary: Patient arrives to ED via BLS with daughter. Per daughter for the past 2-3 days patient has been lying on the couch, not eating much, has been fatigued and weak and has had an increase in confusion. Patient has a History of liver Cirrhosis and Hep C. Patient c/o abd pain. Per daughter patient had fluid drained here about 10 days ago. History of Present Illness The patient is a 62 year old female who presents to the Emergency Room brought in by EMS with complaints of persistent abdominal pain for two days [employer]. Per daughter, the patient has been complaining of abdominal pain and has increased confusion, loss of appetite, fatigue, and general weakness. She currently rates her pain a 5/10 in severity. The patient has a history of Cirrhosis of the liver , Hepatitis C and pneumonia. The patient denies any falls, bloody stools, rashes , fevers, nausea, and vomiting. The patient was recently hospitalized 10 days [employer] due to low blood pressure and to have her abdomen drained of fluid. The daughter notes the patient regularly has her abdomen drained of 5 liters, though they were only able to obtain 3 liters of excess fluid. Per daughter, the patient's breathing is normal. The patient has a baseline tremor. Susan daughter, the patient has had recent changes to her blood pressure medication. The patient is taking Lactulose regularly. Dr. Maki is her family PCP. Source of History: patient, family Onset: two days [employer] Position: abdomen Symptom Intensity: 5/10 Timing: other (persistent) Associated Symptoms: + fatigue, + weakness (general ), No fevers, No nausea , No vomiting, No rash Note: The patient has increased confusion and loss of appetite. The patient denies any falls or bloody stools. Review of Systems See HPI for pertinent positives & negatives. A total of 10 systems reviewed and were otherwise negative. Past Medical & Surgical Medical Problems: (1) Abdominal pain (2) Alcohol abuse (3) Anemia (4) Ascites (5) COPD, moderate (6) Decompensated hepatic cirrhosis (7) Decompensation of cirrhosis of liver (8) Depression (9) Fatty liver (10) H/O needle biopsy (11) Hepatitis B (12) Hepatitis C, chronic (13) History of seizures (14) Hypotension (15) Hypotension (16) Ileus (17) Peritonitis (18) Tuberculosis Surgical Problems: (1) H/O exploratory laparotomy (2) History of appendectomy (3) History of tubal ligation Family History FH: dementia FATHER Social History Smoking Status: Current Every Day Smoker Alcohol Use: heavy Drug Use: none Marital Status: in relationship Housing Status: lives with family Occupation Status: unemployed Current/Historical Medications Scheduled Citalopram (Citalopram Hydrobromide), 20 MG PO DAILY Folic Acid (Folvite), 1 MG PO DAILY Furosemide (Furosemide), 20 MG PO DAILY Furosemide (Furosemide), 40 MG PO DAILY Gabapentin (Neurontin), 300 MG PO TID Home O2 Therapy (Oxygen), 3 LITERS NA UD Lactulose (Constulose), 45 ML PO TID Levothyroxine Sodium (Levothyroxine Sodium), 25 MCG PO DAILY Midodrine Hcl (Midodrine Hcl), 7.5 MG PO TID Nystatin (Nystatin Suspension), 5 ML PO QID Potassium Ext Rel (Klor-Con), 20 MEQ PO DAILY Sodium Bicarbonate (Sodium Bicarbonate), 650 MG PO TID Spironolactone (Spironolactone), 100 MG PO DAILY Thiamine Mononitrate (Vitamin B1), 100 MG PO QAM Scheduled PRN Albuterol Hfa (Ventolin Hfa), 2 PUFFS INH Q4H PRN for Wheezing Hyoscyamine Sulfate (Levsin), 0.125 MG PO ACHS PRN for abdominal pain or bloating Ondansetron (Ondansetron HCl), 4 MG PO Q8 PRN for Nausea Tramadol HCl (Tramadol HCl), 50 MG PO Q6H PRN for Pain Allergies Coded Allergies: No Known Allergies (Unverified , 04/21/17) Physical Exam Vital Signs Date Time Temp Pulse Resp B/P (MAP) Pulse Ox O2 Delivery O2 Flow Rate FiO2 05/03/17 16:31 90 05/03/17 16:10 92 96/66 100 Nasal Cannula 4.0 93 107/72 96/66 05/03/17 15:11 87 104/61 99 Nasal Cannula 4.0 05/03/17 14:27 91 Nasal Cannula 4.0 05/03/17 14:26 83 Nasal Cannula 3.0 05/03/17 14:20 36.8 93 113/75 87 Room Air Physical Exam GENERAL: Patient is awake and follows commands slowly, in no acute distress. The patient does not appear to be in pain. EYES: The conjunctivae are clear. The pupils are round and reactive. EARS, NOSE, MOUTH AND THROAT: The nose is without any evidence of any deformity. Dry mucus membranes. NECK: The neck is nontender and supple. RESPIRATORY: Normal respiratory effort is noted. Lung sounds diminished at both bases, rales at both bases. CARDIOVASCULAR: Regular rate and rhythm noted there no murmurs rubs or gallops normal S1 normal S2 GASTROINTESTINAL: The abdomen is soft, moderately distended, and diffusely tender. Bowel sounds are diminished throughout. MUSCULOSKELETAL/EXTREMITIES: There is no evidence of gross deformity full range of motion is noted in the hips and shoulders SKIN: There is no obvious evidence of any rash. There are no petechiae, pallor or cyanosis noted. Pedal edema bilaterally. NEUROLOGIC: Patient is awake alert and oriented to person, place, but not to time or situation. Strength was symmetric but diminished. There is some tremulousness noted to both upper and lower extremities. Medical Decision & Procedures ER Provider Diagnostic Interpretation: Radiology results as stated below per my review and radiologist interpretation: CHEST ONE VIEW PORTABLE HISTORY: 62 years-old Female EVALUATE ALTERED MENTAL STATUS/WEAKNESS acute altered mental status COMPARISON: Chest radiograph 04/21/2017 TECHNIQUE: Portable upright AP view of the chest FINDINGS: Cardiac silhouette is within normal limits. Atherosclerosis of the aorta. No pneumothorax, large pleural effusion, focal airspace consolidation or overt pulmonary edema. Linear subsegmental atelectasis or scarring of the lateral left lung base. The bones appear mildly demineralized. IMPRESSION: Linear subsegmental atelectasis or scarring of the left lung base without acute cardiopulmonary process. The above report was generated using voice recognition software. It may contain grammatical, syntax or spelling errors. Electronically signed by: Gary Rodriguez M.D. 05/03/2017 3:54 PM Dictated Date/Time: 05/03/2017 3:52 PM [facility] CLINICAL HISTORY: 62 years-old Female presenting with distented abd. TECHNIQUE: Single supine view of the abdomen was obtained. COMPARISON: 04/21/2017. FINDINGS: Diffuse gaseous distention of small bowel. Small bowel measures up to 3.5 cm in diameter, although this is affected by magnification. Some gas filled loops may represent large bowel in the right mid abdomen. No gross pneumoperitoneum. Centralization of bowel loops suggests the presence of ascites. Osseous structures normal. IMPRESSION: 1. Gaseous distention of small bowel. This may represent an ileus given the presumed presence of large bowel gas in the right colon. Continued imaging follow-up to exclude bowel obstruction. Electronically signed by: Kendrick Myers M.D. 05/03/2017 3:56 PM Dictated Date/Time: 05/03/2017 3:54 PM Laboratory Results 05/03/17 14:50 Red Blood Count 3.22, Mean Corpuscular Volume 85.1, Mean Corpuscular Hemoglobin 29.2, Mean Corpuscular Hemoglobin Concent 34.3, Mean Platelet Volume 10.0, Neutrophils (%) (Auto) 57.5, Lymphocytes (%) (Auto) 26.0, Monocytes (%) (Auto) 15.4, Eosinophils (%) (Auto) 0.5, Basophils (%) (Auto) 0.4, Neutrophils # (Auto ) 7.24, Lymphocytes # (Auto) 3.27, Monocytes # (Auto) 1.94, Eosinophils # (Auto ) 0.06, Basophils # (Auto) 0.05 05/03/17 14:50 Test 05/03/17 14:50 05/03/17 14:52 05/03/17 15:14 05/03/17 16:18 White Blood Count 12.59 K/uL (4.8-10.8) Red Blood Count 3.22 M/uL (4.2-5.4) Hemoglobin 9.4 g/dL (12.0-16.0) Hematocrit 27.4 % (37-47) Mean Corpuscular Volume 85.1 fL (80-100) Mean Corpuscular Hemoglobin 29.2 pg (25-34) Mean Corpuscular Hemoglobin Concent 34.3 g/dl (32-36) Platelet Count 269 K/uL (130-400) Mean Platelet Volume 10.0 fL (7.4-10.4) Neutrophils (%) (Auto) 57.5 % Lymphocytes (%) (Auto) 26.0 % Monocytes (%) (Auto) 15.4 % Eosinophils (%) (Auto) 0.5 % Basophils (%) (Auto) 0.4 % Neutrophils # (Auto) 7.24 K/uL (1.4-6.5) Lymphocytes # (Auto) 3.27 K/uL (1.2-3.4) Monocytes # (Auto) 1.94 K/uL (0.11-0.59) Eosinophils # (Auto) 0.06 K/uL (0-0.5) Basophils # (Auto) 0.05 K/uL (0-0.2) RDW Standard Deviation 53.3 fL (36.4-46.3) RDW Coefficient of Variation 17.2 % (11.5-14.5) Immature Granulocyte % (Auto) 0.2 % Immature Granulocyte # (Auto) 0.03 K/uL (0.00-0.02) Red Blood Cell Morphology Unremarkable Prothrombin Time 15.9 SECONDS (9.0-12.0) Prothromb Time International Ratio 1.5 (0.9-1.1) Activated Partial Thromboplast Time 29.2 SECONDS (21.0-31.0) Partial Thromboplastin Ratio 1.1 Venous Blood pH 7.41 (7.36-7.41) Venous Blood Partial Pressure CO2 48 mmHg (38.0-50.0) Venous Blood Partial Pressure O2 44 mmHg Venous Blood HCO3 30 mmol/L Venous Blood Oxygen Saturation 76.7 % Venous Blood Base Excess 4.4 mEq/L Anion Gap 5.0 mmol/L (3-11) Est Creatinine Clear Calc Drug Dose 35.4 ml/min Estimated GFR () 45.3 Estimated GFR (Non- 39.1 BUN/Creatinine Ratio 11.3 (10-20) Calcium Level 8.3 mg/dl (8.5-10.1) Phosphorus Level 3.5 mg/dl (2.5-4.9) Magnesium Level 1.9 mg/dl (1.8-2.4) Total Bilirubin 1.8 mg/dl (0.2-1) Direct Bilirubin 0.6 mg/dl (0-0.2) Aspartate Amino Transf (AST/SGOT) 19 U/L (15-37) Alanine Aminotransferase (ALT/SGPT) 11 U/L (12-78) Alkaline Phosphatase 59 U/L (45-117) Ammonia 42.1 umol/L (11-32) Total Creatine Kinase 20 U/L (26-192) Creatine Kinase MB < 0.5 ng/ml (0.5-3.6) Creatine Kinase MB Ratio (0-3.0) Troponin I < 0.015 ng/ml (0-0.045) Pro-B-Type Natriuretic Peptide 1556 pg/ml (0-900) Total Protein 6.4 gm/dl (6.4-8.2) Albumin 3.0 gm/dl (3.4-5.0) Lipase 37 U/L (73-393) Thyroid Stimulating Hormone (TSH) 2.890 uIu/ml (0.300-4.500) Bedside Lactic Acid Venous 0.77 mmol/L (0.90-1.70) Bedside Glucose 62 mg/dl (70-90) Urine Color DK YELLOW Urine Appearance CLOUDY (CLEAR) Urine pH 6.0 (4.5-7.5) Urine Specific [place] 1.014 (1.000-1.030) Urine Protein NEG (NEG) Urine Glucose (UA) NEG (NEG) Urine Ketones TRACE (NEG) Urine Occult Blood NEG (NEG) Urine Nitrite NEG (NEG) Urine Bilirubin NEG (NEG) Urine Urobilinogen NEG (NEG) Urine Leukocyte Esterase SMALL (NEG) Urine WBC (Auto) >30 /hpf (0-5) Urine RBC (Auto) 0-4 /hpf (0-4) Urine Hyaline Casts (Auto) 10-30 /lpf (0-5) Urine Epithelial Cells (Auto) 10-20 /lpf (0-5) Urine Bacteria (Auto) 4+ (NEG) Urine Opiates Screen NEG (NEG) Urine Methadone, Qualitative NEG (NEG) Urine Barbiturates NEG (NEG) Urine Phencyclidine (PCP) Level NEG (NEG) Ur Amphetamine/Methamphetamine NEG (NEG) MDMA (Ecstasy) Screen NEG (NEG) Urine Benzodiazepines Screen NEG (NEG) Urine Cocaine Metabolite NEG (NEG) Urine Marijuana (THC) NEG (NEG) Laboratory results per my review. Medications Administered Medications (Trade) Dose Ordered Sig/Shelby Route Start Time Stop Time Status Last Admin Dose Admin Sodium Chloride 1,000 ml @ 999 mls/hr Q1H1M STAT IV 05/03/17 16:14 05/03/17 17:14 DC 05/03/17 16:14 999 MLS/HR Levofloxacin (Levaquin / D5W) 750 mg NOW STAT IV 05/03/17 16:35 05/03/17 16:36 DC 05/03/17 16:39 750 MG ED Course 1433: The patient was evaluated in room A11B. A complete history and physical examination were performed. 1614: Ordered NSS 1,000 ml @ 999 mls/hr IV 1635: Ordered Levofloxacin 750 mg IV 1643: I spoke with Angle Bolton CRNP. We discussed the patients case. [facility]. Medical Decision Prior records/ancillary studies reviewed and summarized above. Nursing notes reviewed. Additional history obtained from daughter. The patient's history was concerning for altered mental status. Differential diagnosis: Etiologies such as metabolic, infection, hypoglycemia, electrolyte abnormalities , cardiac sources, intracerebral event, toxicologic, neurologic, as well as others were entertained. The patient is a 62-year-old female who is a history of liver disease who presented to the emergency department for an evaluation of altered mental status and abdominal pain. The patient recently had a paracentesis approximately 10 days ago. The patient was found have an elevated ammonia level but she has been compliant with her lactulose according to the family members. The patient was also found have signs of possible small bowel obstruction with urinary tract infection. She was treated with IV fluids and IV antibiotics. [facility] They've agreed to evaluate the patient in the emergency department for further management and disposition. Medication Reconcilliation Current Medication List: was personally reviewed by me Blood Pressure Screening Patient's blood pressure: Normal blood pressure Consults Time Called: 1626 Consulting Physician: Angle Bolton Returned Call: 1643 I spoke with Angle Bolton CRNP. We discussed the patients case. The patient will be evaluated by the [facility] for further management. Impression Primary Impression: Altered mental status Additional Impressions: Hepatic encephalopathy Abdominal pain UTI (urinary tract infection) Scribe Attestation The scribe's documentation has been prepared under my direction and personally reviewed by me in its entirety. I confirm that the note above accurately reflects all work, treatment, procedures, and medical decision making performed by me. Departure Information Dispostion Being Evaluated By Hospitalist Referrals Jeremy Maki M.D. (PCP) Patient Instructions My [facility] Problem Qualifiers Primary Impression: Altered mental status Altered mental status type: unspecified Qualified Codes: R41.82 - Altered mental status, unspecified Additional Impressions: Abdominal pain Abdominal location: generalized Qualified Codes: R10.84 - Generalized abdominal pain UTI (urinary tract infection) Urinary tract infection type: site unspecified Hematuria presence: with hematuria Qualified Codes: N39.0 - Urinary tract infection, site not specified ; R31.9 - Hematuria, unspecified
[2017-05-03 15:08] LABS: HEMATOCRIT 27.4 % (37-47); MEAN CELL VOLUME 85.1 fL (80-100); MEAN CORPUSCULAR HEMOGLOBIN 29.2 pg (25-34); MEAN CORPUSCULAR HGB CONC 34.3 g/dl (32-36); PLATELET COUNT 269 K/uL (130-400); RED BLOOD COUNT 3.22 M/uL (4.2-5.4); WHITE BLOOD COUNT 12.59 K/uL (4.8-10.8)
[2017-05-03 15:12] LABS: VEN BLD GAS O2 SATURATION 76.7 %; VEN BLOOD GAS BASE EXCESS 4.4 mEq/L
[2017-05-03 15:24] LABS: INR 1.5 (0.9-1.1); PARTIAL THROMBOPLASTIN RATIO 1.1; PROTHROMBIN TIME (PATIENT) 15.9 SECONDS (9.0-12.0)
[2017-05-03 15:36] LABS: ALT/SGPT 11 U/L (12-78); BLOOD UREA NITROGEN 16 mg/dl (7-18); BUN/CREATININE RATIO 11.3 (10-20); CALCIUM 8.3 mg/dl (8.5-10.1); CARBON DIOXIDE 29 mmol/L (21-32); CHLORIDE 96 mmol/L (98-107); CREATININE 1.44 mg/dl (0.60-1.20); GLUCOSE 60 mg/dl (70-99); MAGNESIUM 1.9 mg/dl (1.8-2.4); POTASSIUM 4.5 mmol/L (3.5-5.1); SODIUM 131 mmol/L (136-145)
[2017-05-03 15:44] LABS: ALKALINE PHOSPHATASE 59 U/L (45-117); AST/SGOT 19 U/L (15-37); PHOSPHORUS 3.5 mg/dl (2.5-4.9)
[2017-05-03 15:53] LABS: BASO % 0.4 %; BASO ABS # 0.05 K/uL (0-0.2); COMPLETE YES; EOS % 0.5 %; IG% 0.2 %; LYMPH ABS # 3.27 K/uL (1.2-3.4); MONO % 15.4 %; NEUT % 57.5 %
--- NOTE | 2017-05-03 15:56 | DIAGNOSTIC IMAGING REPORT ---
CHEST ONE VIEW PORTABLE HISTORY: 62 years-old Female EVALUATE ALTERED MENTAL STATUS/WEAKNESS acute altered mental status COMPARISON: Chest radiograph 04/21/2017 TECHNIQUE: Portable upright AP view of the chest FINDINGS: Cardiac silhouette is within normal limits. Atherosclerosis of the aorta. No pneumothorax, large pleural effusion, focal airspace consolidation or overt pulmonary edema. Linear subsegmental atelectasis or scarring of the lateral left lung base. The bones appear mildly demineralized. IMPRESSION: Linear subsegmental atelectasis or scarring of the left lung base without acute cardiopulmonary process. The above report was generated using voice recognition software. It may contain grammatical, syntax or spelling errors. Electronically signed by: Gary Rodriguez M.D. 05/03/2017 3:54 PM Dictated Date/Time: 05/03/2017 3:52 PM
--- NOTE | 2017-05-03 15:58 | DIAGNOSTIC IMAGING REPORT ---
KUB CLINICAL HISTORY: 62 years-old Female presenting with distented abd. TECHNIQUE: Single supine view of the abdomen was obtained. COMPARISON: 04/21/2017. FINDINGS: Diffuse gaseous distention of small bowel. Small bowel measures up to 3.5 cm in diameter, although this is affected by magnification. Some gas filled loops may represent large bowel in the right mid abdomen. No gross pneumoperitoneum. Centralization of bowel loops suggests the presence of ascites. Osseous structures normal. IMPRESSION: 1. Gaseous distention of small bowel. This may represent an ileus given the presumed presence of large bowel gas in the right colon. Continued imaging follow-up to exclude bowel obstruction. Electronically signed by: Kendrick Myers M.D. 05/03/2017 3:56 PM Dictated Date/Time: 05/03/2017 3:54 PM
[2017-05-03] MEDS ORDERED: THIA1TAB11 PO (16:01)
[2017-05-03] MEDS ORDERED: ONDA4TAB9 PO (16:01)
[2017-05-03] MEDS ORDERED: LSX20 PO (16:01)
[2017-05-03] MEDS ORDERED: MIDO2.5T PO (16:01)
[2017-05-03] MEDS ORDERED: LEVO25TA5 PO (16:01)
[2017-05-03] MEDS ORDERED: FOLI1TAB8 PO (16:01)
[2017-05-03] MEDS ORDERED: POTA20TA16 PO (16:01)
[2017-05-03] MEDS ORDERED: CLX/20 PO (16:01)
[2017-05-03] MEDS ORDERED: SODI650T8 PO (16:01)
[2017-05-03] MEDS ORDERED: LACT15SO PO (16:01)
[2017-05-03] MEDS ORDERED: SPR25 PO (16:01)
[2017-05-03] MEDS ORDERED: NYSS/ PO (16:01)
[2017-05-03] MEDS ORDERED: LSX40 PO (16:01)
[2017-05-03] MEDS ORDERED: ULT50 PO (16:01)
[2017-05-03] MEDS ORDERED: OXGN (16:05)
[2017-05-03] MEDS ORDERED: SODIUM CHLORIDE 0.9% 1000ML 1,000 ML IV STA (16:14)
[2017-05-03 16:30] LABS: URINE APPEARANCE CLOUDY (CLEAR); URINE BILIRUBIN NEG (NEG); URINE COLOR DK YELLOW; URINE NITRITE NEG (NEG); URINE SPECIFIC GRAVITY 1.014 (1.000-1.030); UROBILINOGEN NEG (NEG); ZZURINE CULT IF INDIC CATH YES
[2017-05-03 16:33] LABS: MANUAL MICROSCOPIC REQUIRED? NO; REVIEW REQ? NO
[2017-05-03] MEDS ORDERED: LEVAQUIN 750MG / 150ML D5W IV STA (16:35)
[2017-05-03 17:15] LABS: BENZODIAZEPINE, URINE NEG (NEG); COCAINE,URINE NEG (NEG); PHENCYCLIDINE, URINE NEG (NEG)
--- NOTE | 2017-05-03 17:49 | DIAGNOSTIC IMAGING REPORT ---
CT OF THE ABDOMEN AND PELVIS WITHOUT CONTRAST CLINICAL HISTORY: Abdominal pain and distention. Cirrhosis. COMPARISON STUDY: CT of the abdomen and pelvis March 03, 2017 and KUB May 03, 2017. TECHNIQUE: Axial images of the abdomen and pelvis were obtained without IV contrast. Images were reviewed in the axial, sagittal, and coronal planes. A dose lowering technique was utilized adhering to the principles of ALARA. FINDINGS: Subpleural opacities within lungs portions of the lung bases suggest atelectasis. Evaluation of the abdomen and pelvis is suboptimal on this unenhanced examination. No pneumatosis, free air or portal venous gas is present. Minimal biliary ductal dilatation is noted. Common bile measures 7 mm in caliber. As before, the liver is dysmorphic and shrunken. Sensitivity for detection of hepatic lesions is diminished on this unenhanced exam. There is a large amount of abdominal and ascites. Hyperdense material within the gallbladder could reflect sludge or stones. There is no peripancreatic infiltration. The size of the spleen is normal. Unenhanced images of the adrenal glands and kidneys are normal. There is no hydronephrosis. Diffuse mesenteric infiltration is likely related to portal hypertension. Mild small bowel dilatation is noted. There is gas within portions of the colon. Evaluation for small bowel obstruction is difficult given extensive ascites and lack of contrast. No suspicious osseous lesions are present. There is extensive atherosclerotic plaque of the abdominal aorta which is normal in caliber. IMPRESSION: 1. Cirrhotic liver with large volume of abdominal and pelvic ascites. 2. Mild small bowel dilatation. Evaluation for small bowel obstruction is difficult given extensive ascites and lack of IV contrast. The findings could reflect an ileus or partial small bowel obstruction. If progressive symptoms, a contrast-enhanced CT of the abdomen and pelvis is recommended. 3. Material within the gallbladder which could reflect sludge or stones. 4. Minimal dilatation of the common bile duct. Electronically signed by: Kvng Hernandez M.D. 05/03/2017 5:47 PM Dictated Date/Time: 05/03/2017 5:33 PM
[2017-05-03 18:11] VITALS: BP 100/58; PULSE 84; TEMP 36.6; O2SAT 100; Ht 152.4 cm; Wt 49.7 kg
[2017-05-03] MEDS: ALBUMIN HUMAN 25% 12.5 GM/50 ML VIAL IV SCH ×4 (19:25→21:53)
[2017-05-03 20:00] VITALS: BP 100/58; PULSE 84; TEMP 36.6; O2SAT 87
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
[2017-05-03] MEDS: CEFTRIAXONE SOD INJ 2,000 MG in DEXTROSE 5% 50ML 50 ML IV SCH (20:21)
[2017-05-03] MEDS: LACTULOSE SYRUP 30 GM/45 ML UDP PO SCH (20:56)
[2017-05-03] MEDS: GABAPENTIN 300 MG CAP PO SCH (20:56)
[2017-05-03] MEDS: SODIUM BICARBONATE 650 MG TAB PO SCH (20:56)
[2017-05-03] MEDS ORDERED: HYDROmorphone INJ 0.5 MG/0.5 ML SYR ONE (22:10)
[2017-05-03 23:11] VITALS: BP 88/56; PULSE 88; TEMP 36.7; O2SAT 94
--- NOTE | 2017-05-03 23:11 | SURGICAL CONSULTATION ---
DATE OF CONSULTATION: 05/03/2017 I have been asked by FATUMA Bolton, to see this 62-year-old female who presented to the Emergency Room with abdominal pain, confusion and weakness. The patient was not able to provide a history. The history is obtained from the chart. She has a history of cirrhosis of the liver and has had a history of ascites with that over a prolonged period of time. She has required paracentesis on multiple occasions. Her most recent paracentesis was during her hospitalization at the beginning of this month where 3 liters were removed. The patient had stated to the nurse that normally 5 liters were removed. Her abdomen has been increasing in girth since then. She complains of pain on the left side of her abdomen laterally. It seems to be episodic. She denies nausea or vomiting, however. She states that she had a bowel movement this morning but no bowel movement has been recorded since she was admitted to the hospital. At one point diarrhea was reported. She is on lactulose for her liver insufficiency. She also now has required oxygen. She denies fever. She denies shortness of breath. There are no urinary symptoms. PAST MEDICAL HISTORY: Alcohol abuse, cirrhosis, COPD, depression, hepatitis C, orthostatic hypotension. PAST SURGICAL HISTORY: Appendectomy, tubal ligation, exploratory laparotomy. The patient has a vertical midline incision in her upper abdomen but she could not remember what the surgery was related to that. MEDICATIONS AT HOME: Include citalopram, Folvite, furosemide, Neurontin, Constulose, levothyroxine, midodrine, nystatin, K-Lacey, bicarbonate, spironolactone and vitamin B1. ALLERGIES: None. SOCIAL HISTORY: She has a history of alcohol abuse. She is presently an everyday smoker. PHYSICAL EXAMINATION: GENERAL: Reveals an elderly female who appears older than stated age. HEENT: Sclerae are anicteric. Mucous membranes are moist. NECK: No adenopathy. LUNGS: Clear. HEART: Regular. ABDOMEN: Markedly distended. It is tender to moderate palpation. Bowel sounds are hypoactive. EXTREMITIES: Reveal no edema. LABORATORY DATA: Most recently shows a WBC of 12.59 with an H&H of 9.4 and 27.4 and platelet count of 269,000. Sodium 131, potassium 4.5, chloride 96, CO2 of 29, BUN 16, creatinine 1.44, glucose 60. Total bilirubin 1.8, AST 19, ALT 11, alkaline phosphatase 59, albumin 3.0, lipase 37. INR is 1.5, PTT is 29.2. KUB showed gaseous distention of the small-bowel, felt to possibly represent ileus because of gas present in the right colon. She then underwent a CT scan of the abdomen and pelvis that showed the cirrhotic liver. There was mild small-bowel distention. The findings were felt to possibly reflect an ileus or partial small-bowel obstruction but could not be determined due to lack of contrast. There was material within the gallbladder that could reflect sludge or small stones. There was minimal dilatation of the common bile duct. ASSESSMENT AND PLAN: This patient has a history of cirrhosis. Her bilirubin is elevated. She has a history of encephalopathy. Her creatinine is mildly elevated. She has a history of chronic obstructive pulmonary disease. There is no definitive evidence of bowel obstruction at the present time. She does have abdominal discomfort. She will most likely need another paracentesis. I do not feel there is any need for immediate surgical intervention at this time. She would be at an extremely high risk for surgery due to all of the comorbid conditions mentioned above. Thank you for allowing me to see this patient and participate in her care.
[2017-05-04] VITALS (12 sets, daily range): BP systolic 64–99; BP diastolic 40–63; PULSE 79–89; TEMP 36.4–37; O2SAT 93–98
[2017-05-04] MEDS: HYDROmorphone INJ 0.5 MG/0.5 ML SYR IV PRN ×3 (02:25→12:17)
[2017-05-04] MEDS: D5W AND NSS 1,000 ML IV SCH ×2 (02:53→16:15)
[2017-05-04] MEDS: LEVOTHYROXINE 25 MCG TAB PO SCH (06:07)
[2017-05-04] MEDS: GABAPENTIN 300 MG CAP PO SCH ×3 (07:44→21:24)
[2017-05-04] MEDS: CITALOPRAM 20 MG TAB PO SCH (07:44)
[2017-05-04] MEDS: SODIUM BICARBONATE 650 MG TAB PO SCH ×3 (07:44→21:24)
[2017-05-04] MEDS: THIAMINE HCL 100 MG TAB PO SCH (07:45)
[2017-05-04] MEDS: LACTULOSE SYRUP 30 GM/45 ML UDP PO SCH ×3 (07:45→21:23)
[2017-05-04] MEDS: ONDANSETRON INJ 2 MG/ML 2 ML VIAL IV PRN (07:47)
[2017-05-04 08:26] LABS: MEAN CELL VOLUME 86.1 fL (80-100); MEAN CORPUSCULAR HEMOGLOBIN 28.8 pg (25-34); MEAN CORPUSCULAR HGB CONC 33.5 g/dl (32-36); MEAN PLATELET VOLUME 10.6 fL (7.4-10.4); PLATELET COUNT 207 K/uL (130-400); RED BLOOD COUNT 3.02 M/uL (4.2-5.4); WHITE BLOOD COUNT 8.67 K/uL (4.8-10.8)
[2017-05-04] MEDS: MIDODRINE 2.5 MG TAB PO SCH ×3 (08:31→16:15)
[2017-05-04 09:01] LABS: BUN/CREATININE RATIO 11.9 (10-20); CALCIUM 8.3 mg/dl (8.5-10.1); CREATININE 1.26 mg/dl (0.60-1.20); POTASSIUM 4.2 mmol/L (3.5-5.1)
[2017-05-04 09:03] LABS: ALB/GLOB RATIO 1.2 (0.9-2)
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
[2017-05-04] MEDS: ALBUMIN HUMAN 25% 12.5 GM/50 ML VIAL IV SCH ×4 (09:52→12:15)
[2017-05-04] MEDS: SPIRONOLACTONE 100 MG TAB PO SCH (09:53)
[2017-05-04] MEDS: FUROSEMIDE 40 MG TAB PO SCH (09:53)
--- NOTE | 2017-05-04 09:57 | Surgery Progress Note ---
Surgery Progress Note Date of Service May 04, 2017. Subjective Post OP Day: HD # 1 Patient still confused Still having belly pain Per nursing staff no bowel movement , on lactulose, sprinolactone, and Has not gone for paracentesis, scheduled for ultrasound guided paracentesis today Objective Vital Signs: Date Time Temp Pulse Resp B/P (MAP) Pulse Ox O2 Delivery O2 Flow Rate FiO2 05/04/17 08:00 95 Nasal Cannula 5.0 05/04/17 07:04 36.6 82 17 92/61 (71) 95 05/04/17 04:00 Nasal Cannula 5.0 05/04/17 03:38 36.4 81 16 81/57 (65) 97 Nasal Cannula 4.0 05/04/17 00:00 Nasal Cannula 5.0 05/03/17 23:11 36.7 88 16 88/56 (67) 94 Nasal Cannula 4.0 05/03/17 20:00 87 Nasal Cannula 5.0 05/03/17 20:00 36.6 84 17 100/58 (72) 87 Nasal Cannula 5.0 05/03/17 18:11 36.6 84 17 100/58 100 Nasal Cannula 4.0 05/03/17 18:03 92 89/59 93 05/03/17 16:31 90 05/03/17 16:10 92 96/66 100 Nasal Cannula 4.0 93 107/72 96/66 05/03/17 15:11 87 104/61 99 Nasal Cannula 4.0 05/03/17 14:27 91 Nasal Cannula 4.0 05/03/17 14:26 83 Nasal Cannula 3.0 05/03/17 14:20 36.8 93 113/75 87 Room Air General Appearance: + pertinent finding (Elderly appearing female ) Head: normocephalic, atraumatic Neck: trachea midline Respiratory/Chest: no respiratory distress, no accessory muscle use Abdomen: + distended (moderate distention with tenderness mostly in the left abdomen, no peritonitis) Laboratory Results: Results Past 24 Hours Test 05/03/17 14:50 05/03/17 14:52 05/03/17 15:14 05/03/17 16:09 Range/Units White Blood Count 12.59 4.8-10.8 K/uL Red Blood Count 3.22 4.2-5.4 M/uL Hemoglobin 9.4 12.0-16.0 g/dL Hematocrit 27.4 37-47 % Mean Corpuscular Volume 85.1 80-100 fL Mean Corpuscular Hemoglobin 29.2 25-34 pg Mean Corpuscular Hemoglobin Concent 34.3 32-36 g/dl Platelet Count 269 130-400 K/uL Mean Platelet Volume 10.0 7.4-10.4 fL Neutrophils (%) (Auto) 57.5 % Lymphocytes (%) (Auto) 26.0 % Monocytes (%) (Auto) 15.4 % Eosinophils (%) (Auto) 0.5 % Basophils (%) (Auto) 0.4 % Neutrophils # (Auto) 7.24 1.4-6.5 K/uL Lymphocytes # (Auto) 3.27 1.2-3.4 K/uL Monocytes # (Auto) 1.94 0.11-0.59 K/uL Eosinophils # (Auto) 0.06 0-0.5 K/uL Basophils # (Auto) 0.05 0-0.2 K/uL RDW Standard Deviation 53.3 36.4-46.3 fL RDW Coefficient of Variation 17.2 11.5-14.5 % Immature Granulocyte % (Auto) 0.2 % Immature Granulocyte # (Auto) 0.03 0.00-0.02 K/uL Red Blood Cell Morphology Unremarkable Prothrombin Time 15.9 9.0-12.0 SECONDS Prothromb Time International Ratio 1.5 0.9-1.1 Activated Partial Thromboplast Time 29.2 21.0-31.0 SECONDS Partial Thromboplastin Ratio 1.1 Venous Blood pH 7.41 7.36-7.41 Venous Blood Partial Pressure CO2 48 38.0-50.0 mmHg Venous Blood Partial Pressure O2 44 mmHg Venous Blood HCO3 30 mmol/L Venous Blood Oxygen Saturation 76.7 % Venous Blood Base Excess 4.4 mEq/L Sodium Level 131 136-145 mmol/L Potassium Level 4.5 3.5-5.1 mmol/L Chloride Level 96 98-107 mmol/L Carbon Dioxide Level 29 21-32 mmol/L Anion Gap 5.0 3-11 mmol/L Blood Urea Nitrogen 16 7-18 mg/dl Creatinine 1.44 0.60-1.20 mg/dl Est Creatinine Clear Calc Drug Dose 35.4 ml/min Estimated GFR () 45.3 Estimated GFR (Non- 39.1 BUN/Creatinine Ratio 11.3 10-20 Random Glucose 60 70-99 mg/dl Calcium Level 8.3 8.5-10.1 mg/dl Phosphorus Level 3.5 2.5-4.9 mg/dl Magnesium Level 1.9 1.8-2.4 mg/dl Total Bilirubin 1.8 0.2-1 mg/dl Direct Bilirubin 0.6 0-0.2 mg/dl Aspartate Amino Transf (AST/SGOT) 19 15-37 U/L Alanine Aminotransferase (ALT/SGPT) 11 12-78 U/L Alkaline Phosphatase 59 45-117 U/L Ammonia 42.1 11-32 umol/L Total Creatine Kinase 20 26-192 U/L Creatine Kinase MB < 0.5 0.5-3.6 ng/ml Creatine Kinase MB Ratio 0-3.0 Troponin I < 0.015 0-0.045 ng/ml Pro-B-Type Natriuretic Peptide 1556 0-900 pg/ml Total Protein 6.4 6.4-8.2 gm/dl Albumin 3.0 3.4-5.0 gm/dl Lipase 37 73-393 U/L Thyroid Stimulating Hormone (TSH) 2.890 0.300-4.500 uIu/ml Bedside Lactic Acid Venous 0.77 0.90-1.70 mmol/L Bedside Glucose 62 77 70-90 mg/dl Test 05/03/17 16:18 05/03/17 20:10 05/03/17 22:29 05/04/17 02:07 Range/Units Urine Color DK YELLOW Urine Appearance CLOUDY CLEAR Urine pH 6.0 4.5-7.5 Urine Specific [place] 1.014 1.000-1.030 Urine Protein NEG NEG Urine Glucose (UA) NEG NEG Urine Ketones TRACE NEG Urine Occult Blood NEG NEG Urine Nitrite NEG NEG Urine Bilirubin NEG NEG Urine Urobilinogen NEG NEG Urine Leukocyte Esterase SMALL NEG Urine WBC (Auto) >30 0-5 /hpf Urine RBC (Auto) 0-4 0-4 /hpf Urine Hyaline Casts (Auto) 10-30 0-5 /lpf Urine Epithelial Cells (Auto) 10-20 0-5 /lpf Urine Bacteria (Auto) 4+ NEG Urine Opiates Screen NEG NEG Urine Methadone, Qualitative NEG NEG Urine Barbiturates NEG NEG Urine Phencyclidine (PCP) Level NEG NEG Ur Amphetamine/Methamphetamine NEG NEG MDMA (Ecstasy) Screen NEG NEG Urine Benzodiazepines Screen NEG NEG Urine Cocaine Metabolite NEG NEG Urine Marijuana (THC) NEG NEG Bedside Glucose 75 79 58 70-90 mg/dl Test 05/04/17 02:30 05/04/17 03:34 05/04/17 06:31 05/04/17 08:00 Range/Units Bedside Glucose 63 89 98 70-90 mg/dl White Blood Count 8.67 4.8-10.8 K/uL Red Blood Count 3.02 4.2-5.4 M/uL Hemoglobin 8.7 12.0-16.0 g/dL Hematocrit 26.0 37-47 % Mean Corpuscular Volume 86.1 80-100 fL Mean Corpuscular Hemoglobin 28.8 25-34 pg Mean Corpuscular Hemoglobin Concent 33.5 32-36 g/dl RDW Standard Deviation 53.9 36.4-46.3 fL RDW Coefficient of Variation 17.2 11.5-14.5 % Platelet Count 207 130-400 K/uL Mean Platelet Volume 10.6 7.4-10.4 fL Sodium Level 134 136-145 mmol/L Potassium Level 4.2 3.5-5.1 mmol/L Chloride Level 99 98-107 mmol/L Carbon Dioxide Level 29 21-32 mmol/L Anion Gap 6.0 3-11 mmol/L Blood Urea Nitrogen 15 7-18 mg/dl Creatinine 1.26 0.60-1.20 mg/dl Est Creatinine Clear Calc Drug Dose 36.7 ml/min Estimated GFR () 53.3 Estimated GFR (Non- 45.9 BUN/Creatinine Ratio 11.9 10-20 Random Glucose 90 70-99 mg/dl Calcium Level 8.3 8.5-10.1 mg/dl Total Bilirubin 1.4 0.2-1 mg/dl Aspartate Amino Transf (AST/SGOT) 18 15-37 U/L Alanine Aminotransferase (ALT/SGPT) 9 12-78 U/L Alkaline Phosphatase 48 45-117 U/L Total Protein 6.1 6.4-8.2 gm/dl Albumin 3.3 3.4-5.0 gm/dl Globulin 2.8 2.5-4.0 gm/dl Albumin/Globulin Ratio 1.2 0.9-2 Microbiology Results 05/03/17 Blood Culture, Received Pending 05/03/17 Blood Culture, Received Pending 05/03/17 Urine Culture - Preliminary, Resulted Gram Negative Bacilli Assessment & Plan 62 year-old female with history of Alcohol induced cirrhosis and recurrent ascites presents with confusion, increasing abdominal pain and distention. CT scan showing dilated small bowel concerning for Ileus vs. PSBO. Leukocytosis has resolved. Examination shows distended abdomen with moderate ascites, tenderness on palpation but no peritonitis. Plan: No acute surgical intervention required She is scheduled for US guided paracentesis today Most likely has Ileus secondary to moderate ascites Continue current plan established by GI and Hospitalist teams Will follow Dr. Burciaga has seen and examined patient, agrees with above
--- NOTE | 2017-05-04 10:34 | Progress Note ---
Internal Med Progress Note Date of Service: May 04, 2017. Provider Documentation: SUBJECTIVE: Seen and examined at bedside Limited history as patient drowsy Reports abdominal and back pain Denies chest pain, SOB OBJECTIVE: Vital Signs-as noted below Physical Exam: General Appearance:Thin, chronically ill appearing Head: normocephalic, Atraumatic Eyes: normal inspection, EOMI, PERRL Neck: supple, Trachea midline Respiratory/Chest: Normal breath sounds, CTA Cardiovascular: S1, S2, No murmur Abdomen/GI:Soft, distended, +Tender, Bowel sounds present Extremities/Musculoskelatal:normal inspection, no edema Neurologic/Psych:grossly no focal neurological deficits Skin: normal color, warm Lab data as noted below. ASSESSMENT & PLAN: Decompensated Cirrhosis Possible SBP H/O HCV (Cleared), ETOH cirrhosis; Recurrent ascites and Hepatic Encephalopathy ? Medical and diet compliance Patient presented with increasing abdominal distention and generalized weakness MELD: 22 Continue Lactulose 30mg TID Planned for U/S paracentesis IV Albumin per GI Follow up Ascitic fluid studies Lasix 40mg daily, Spironolactone 100mg daily 2g low salt diet May need TIPS eventually Continue Midodrine 7.5mg TID Continue IV ceftriaxone for possible SBP and UTI Blood cultures: pending Appreciate GI Input Leukocytosis resolved CT abdomen suggestive of ileus Vs partial SBO Appreciate Surgery Input: No plans for any surgical Intervention UTI: Continue IV Ceftriaxone Urine Culture:pending BRADLEY Cr baseline ~ 1.0 likely prerenal Cr trending towards baseline Cr:1.26 today Hypoglycemia improved with oral intake monitor BSGs H/O Orthostatic Hypotension Continue midodrine case management consult for midodrine coverage DVT Px: SCDs for now Disposition: To be determined Vital Signs: Date Time Temp Pulse Resp B/P (MAP) Pulse Ox O2 Delivery O2 Flow Rate FiO2 05/04/17 08:00 95 Nasal Cannula 5.0 05/04/17 07:04 36.6 82 17 92/61 (71) 95 05/04/17 04:00 Nasal Cannula 5.0 05/04/17 03:38 36.4 81 16 81/57 (65) 97 Nasal Cannula 4.0 05/04/17 00:00 Nasal Cannula 5.0 05/03/17 23:11 36.7 88 16 88/56 (67) 94 Nasal Cannula 4.0 05/03/17 20:00 87 Nasal Cannula 5.0 05/03/17 20:00 36.6 84 17 100/58 (72) 87 Nasal Cannula 5.0 05/03/17 18:11 36.6 84 17 100/58 100 Nasal Cannula 4.0 05/03/17 18:03 92 89/59 93 05/03/17 16:31 90 05/03/17 16:10 92 96/66 100 Nasal Cannula 4.0 93 107/72 96/66 05/03/17 15:11 87 104/61 99 Nasal Cannula 4.0 05/03/17 14:27 91 Nasal Cannula 4.0 05/03/17 14:26 83 Nasal Cannula 3.0 05/03/17 14:20 36.8 93 113/75 87 Room Air Lab Results: Results Past 24 Hours Test 05/03/17 14:50 05/03/17 14:52 05/03/17 15:14 05/03/17 16:09 Range/Units White Blood Count 12.59 4.8-10.8 K/uL Red Blood Count 3.22 4.2-5.4 M/uL Hemoglobin 9.4 12.0-16.0 g/dL Hematocrit 27.4 37-47 % Mean Corpuscular Volume 85.1 80-100 fL Mean Corpuscular Hemoglobin 29.2 25-34 pg Mean Corpuscular Hemoglobin Concent 34.3 32-36 g/dl Platelet Count 269 130-400 K/uL Mean Platelet Volume 10.0 7.4-10.4 fL Neutrophils (%) (Auto) 57.5 % Lymphocytes (%) (Auto) 26.0 % Monocytes (%) (Auto) 15.4 % Eosinophils (%) (Auto) 0.5 % Basophils (%) (Auto) 0.4 % Neutrophils # (Auto) 7.24 1.4-6.5 K/uL Lymphocytes # (Auto) 3.27 1.2-3.4 K/uL Monocytes # (Auto) 1.94 0.11-0.59 K/uL Eosinophils # (Auto) 0.06 0-0.5 K/uL Basophils # (Auto) 0.05 0-0.2 K/uL RDW Standard Deviation 53.3 36.4-46.3 fL RDW Coefficient of Variation 17.2 11.5-14.5 % Immature Granulocyte % (Auto) 0.2 % Immature Granulocyte # (Auto) 0.03 0.00-0.02 K/uL Red Blood Cell Morphology Unremarkable Prothrombin Time 15.9 9.0-12.0 SECONDS Prothromb Time International Ratio 1.5 0.9-1.1 Activated Partial Thromboplast Time 29.2 21.0-31.0 SECONDS Partial Thromboplastin Ratio 1.1 Venous Blood pH 7.41 7.36-7.41 Venous Blood Partial Pressure CO2 48 38.0-50.0 mmHg Venous Blood Partial Pressure O2 44 mmHg Venous Blood HCO3 30 mmol/L Venous Blood Oxygen Saturation 76.7 % Venous Blood Base Excess 4.4 mEq/L Sodium Level 131 136-145 mmol/L Potassium Level 4.5 3.5-5.1 mmol/L Chloride Level 96 98-107 mmol/L Carbon Dioxide Level 29 21-32 mmol/L Anion Gap 5.0 3-11 mmol/L Blood Urea Nitrogen 16 7-18 mg/dl Creatinine 1.44 0.60-1.20 mg/dl Est Creatinine Clear Calc Drug Dose 35.4 ml/min Estimated GFR () 45.3 Estimated GFR (Non- 39.1 BUN/Creatinine Ratio 11.3 10-20 Random Glucose 60 70-99 mg/dl Calcium Level 8.3 8.5-10.1 mg/dl Phosphorus Level 3.5 2.5-4.9 mg/dl Magnesium Level 1.9 1.8-2.4 mg/dl Total Bilirubin 1.8 0.2-1 mg/dl Direct Bilirubin 0.6 0-0.2 mg/dl Aspartate Amino Transf (AST/SGOT) 19 15-37 U/L Alanine Aminotransferase (ALT/SGPT) 11 12-78 U/L Alkaline Phosphatase 59 45-117 U/L Ammonia 42.1 11-32 umol/L Total Creatine Kinase 20 26-192 U/L Creatine Kinase MB < 0.5 0.5-3.6 ng/ml Creatine Kinase MB Ratio 0-3.0 Troponin I < 0.015 0-0.045 ng/ml Pro-B-Type Natriuretic Peptide 1556 0-900 pg/ml Total Protein 6.4 6.4-8.2 gm/dl Albumin 3.0 3.4-5.0 gm/dl Lipase 37 73-393 U/L Thyroid Stimulating Hormone (TSH) 2.890 0.300-4.500 uIu/ml Bedside Lactic Acid Venous 0.77 0.90-1.70 mmol/L Bedside Glucose 62 77 70-90 mg/dl Test 05/03/17 16:18 05/03/17 20:10 05/03/17 22:29 05/04/17 02:07 Range/Units Urine Color DK YELLOW Urine Appearance CLOUDY CLEAR Urine pH 6.0 4.5-7.5 Urine Specific [place] 1.014 1.000-1.030 Urine Protein NEG NEG Urine Glucose (UA) NEG NEG Urine Ketones TRACE NEG Urine Occult Blood NEG NEG Urine Nitrite NEG NEG Urine Bilirubin NEG NEG Urine Urobilinogen NEG NEG Urine Leukocyte Esterase SMALL NEG Urine WBC (Auto) >30 0-5 /hpf Urine RBC (Auto) 0-4 0-4 /hpf Urine Hyaline Casts (Auto) 10-30 0-5 /lpf Urine Epithelial Cells (Auto) 10-20 0-5 /lpf Urine Bacteria (Auto) 4+ NEG Urine Opiates Screen NEG NEG Urine Methadone, Qualitative NEG NEG Urine Barbiturates NEG NEG Urine Phencyclidine (PCP) Level NEG NEG Ur Amphetamine/Methamphetamine NEG NEG MDMA (Ecstasy) Screen NEG NEG Urine Benzodiazepines Screen NEG NEG Urine Cocaine Metabolite NEG NEG Urine Marijuana (THC) NEG NEG Bedside Glucose 75 79 58 70-90 mg/dl Test 05/04/17 02:30 05/04/17 03:34 05/04/17 06:31 05/04/17 08:00 Range/Units Bedside Glucose 63 89 98 70-90 mg/dl White Blood Count 8.67 4.8-10.8 K/uL Red Blood Count 3.02 4.2-5.4 M/uL Hemoglobin 8.7 12.0-16.0 g/dL Hematocrit 26.0 37-47 % Mean Corpuscular Volume 86.1 80-100 fL Mean Corpuscular Hemoglobin 28.8 25-34 pg Mean Corpuscular Hemoglobin Concent 33.5 32-36 g/dl RDW Standard Deviation 53.9 36.4-46.3 fL RDW Coefficient of Variation 17.2 11.5-14.5 % Platelet Count 207 130-400 K/uL Mean Platelet Volume 10.6 7.4-10.4 fL Sodium Level 134 136-145 mmol/L Potassium Level 4.2 3.5-5.1 mmol/L Chloride Level 99 98-107 mmol/L Carbon Dioxide Level 29 21-32 mmol/L Anion Gap 6.0 3-11 mmol/L Blood Urea Nitrogen 15 7-18 mg/dl Creatinine 1.26 0.60-1.20 mg/dl Est Creatinine Clear Calc Drug Dose 36.7 ml/min Estimated GFR () 53.3 Estimated GFR (Non- 45.9 BUN/Creatinine Ratio 11.9 10-20 Random Glucose 90 70-99 mg/dl Calcium Level 8.3 8.5-10.1 mg/dl Total Bilirubin 1.4 0.2-1 mg/dl Aspartate Amino Transf (AST/SGOT) 18 15-37 U/L Alanine Aminotransferase (ALT/SGPT) 9 12-78 U/L Alkaline Phosphatase 48 45-117 U/L Total Protein 6.1 6.4-8.2 gm/dl Albumin 3.3 3.4-5.0 gm/dl Globulin 2.8 2.5-4.0 gm/dl Albumin/Globulin Ratio 1.2 0.9-2 Microbiology Results 05/03/17 Blood Culture, Received Pending 05/03/17 Blood Culture, Received Pending 05/03/17 Urine Culture - Preliminary, Resulted Gram Negative Bacilli
--- NOTE | 2017-05-04 14:18 | DIAGNOSTIC IMAGING REPORT ---
ULTRASOUND GUIDED DIAGNOSTIC AND THERAPEUTIC PARACENTESIS CLINICAL HISTORY: Ascites. COMPARISON STUDY: CT of the abdomen and pelvis May 03, 2017. PROCEDURE: The risks, benefits, and alternatives to the procedure were discussed with the patient including the risk of bleeding, infection and injury to adjacent structures. The patient agreed to the procedure and informed written consent was obtained. Following real-time ultrasound localization, the skin of the left lower quadrant was prepped and draped. Following local anesthesia with Xylocaine, the sheath paracentesis needle was inserted and approximately 4 liters of straw-colored fluid was removed by vacuum suction. One liter of ascites was sent to the laboratory for analysis as ordered. The patient tolerated the procedure well and no immediate complications were evident. IMPRESSION: Ultrasound-guided paracentesis with removal of 4 liters of ascites. Electronically signed by: Kvng Hernandez M.D. 05/04/2017 2:16 PM Dictated Date/Time: 05/04/2017 2:16 PM
[2017-05-04 15:29] LABS: PERIT FL WBC 157 /uL (0-300); PERITONEAL FLUID RBC < 3000 /uL
[2017-05-04] MEDS: CEFTRIAXONE SOD INJ 2,000 MG in DEXTROSE 5% 50ML 50 ML IV SCH (21:23)
[2017-05-05] VITALS (7 sets, daily range): BP systolic 67–112; BP diastolic 38–66; PULSE 74–85; TEMP 36.6–37; O2SAT 4–99
[2017-05-05] MEDS: D5W AND NSS 1,000 ML IV SCH ×2 (03:49→16:04)
[2017-05-05] MEDS: ONDANSETRON INJ 2 MG/ML 2 ML VIAL IV PRN (03:58)
[2017-05-05 05:33] LABS: HEMATOCRIT 25.9 % (37-47); MEAN CELL VOLUME 86.6 fL (80-100); MEAN CORPUSCULAR HEMOGLOBIN 27.8 pg (25-34); MEAN PLATELET VOLUME 10.5 fL (7.4-10.4); PLATELET COUNT 201 K/uL (130-400); RED BLOOD COUNT 2.99 M/uL (4.2-5.4); WHITE BLOOD COUNT 7.87 K/uL (4.8-10.8)
[2017-05-05] MEDS: LEVOTHYROXINE 25 MCG TAB PO SCH (05:47)
[2017-05-05 06:22] LABS: BUN/CREATININE RATIO 10.2 (10-20); CALCIUM 8.3 mg/dl (8.5-10.1); CREATININE 1.04 mg/dl (0.60-1.20); MAGNESIUM 1.6 mg/dl (1.8-2.4); POTASSIUM 3.4 mmol/L (3.5-5.1)
[2017-05-05] MEDS: ALBUMIN HUMAN 25% 12.5 GM/50 ML VIAL IV SCH ×6 (07:37→22:06)
[2017-05-05] MEDS: GABAPENTIN 300 MG CAP PO SCH ×3 (07:44→20:46)
[2017-05-05] MEDS: CITALOPRAM 20 MG TAB PO SCH (07:44)
[2017-05-05] MEDS: SPIRONOLACTONE 100 MG TAB PO SCH (07:45)
[2017-05-05] MEDS: MIDODRINE 2.5 MG TAB PO SCH ×3 (07:45→16:04)
[2017-05-05] MEDS: THIAMINE HCL 100 MG TAB PO SCH (07:45)
[2017-05-05] MEDS: SODIUM BICARBONATE 650 MG TAB PO SCH ×3 (07:45→20:46)
[2017-05-05] MEDS: LACTULOSE SYRUP 30 GM/45 ML UDP PO SCH ×3 (07:46→20:42)
[2017-05-05] MEDS: FUROSEMIDE 40 MG TAB PO SCH (08:47)
[2017-05-05] MEDS: HYDROmorphone INJ 0.5 MG/0.5 ML SYR IV PRN (08:47)
--- NOTE | 2017-05-05 10:20 | Gastroenterology Progress Note ---
Progress Note Date of Service: May 05, 2017 Subjective Pt evaluation today including: conversation w/ patient, physical exam, chart review, lab review, review of inpatient medication list Pt had 4L ascites removal yesterday. [place] cell ct w/o signs of SBP though sample obtained after started on Ceftriaxone. She is more alert, oriented today. She is c/o nausea and abd pain today. Is moving bowels. Review of Systems Constitutional: No fever Respiratory: No cough, No shortness of breath Cardiac: No chest pain Abdomen: + pain, + nausea, + diarrhea, No vomiting Medications Current Inpatient Medications Medications (Trade) Dose Ordered Sig/Shelby Route Start Time Stop Time Status Last Admin Dose Admin Ondansetron HCl (Zofran Inj) 4 mg Q6H PRN IV 05/03/17 17:00 06/02/17 16:59 05/05/17 03:58 4 MG Ceftriaxone Sodium 2000 mg/ Dextrose 70 ml @ 100 mls/hr Q24H IV 05/03/17 20:00 05/13/17 19:59 05/04/17 21:23 100 MLS/HR Lactulose (Chronulac Syrup) 30 gm TID PO 05/03/17 21:00 06/02/17 20:59 05/05/17 07:46 30 GM Citalopram Hydrobromide (celeXA TAB) 20 mg DAILY PO 05/04/17 09:00 06/03/17 08:59 05/05/17 07:44 20 MG Folic Acid (Folvite Tab) 1 mg DAILY PO 05/04/17 09:00 06/03/17 08:59 05/05/17 07:44 1 MG Gabapentin (Neurontin Cap) 300 mg TID PO 05/03/17 21:00 06/02/17 20:59 05/05/17 07:44 300 MG Levothyroxine Sodium (Synthroid Tab) 25 mcg DAILYBB PO 05/04/17 06:00 06/03/17 06:59 05/05/17 05:47 25 MCG Sodium Bicarbonate (Sodium Bicarbonate Tab) 650 mg TID PO 05/03/17 21:00 06/02/17 20:59 05/05/17 07:45 650 MG Thiamine HCl (Vitamin B-1 Tab) 100 mg QAM PO 05/04/17 09:00 06/03/17 08:59 05/05/17 07:45 100 MG Midodrine (Proamatine Tab) 7.5 mg TID@0800,1200,1600 PO 05/04/17 08:00 06/03/17 07:59 05/05/17 07:45 7.5 MG Hydromorphone HCl (Dilaudid Inj) 0.25 mg Q4H PRN IV 05/03/17 22:15 05/17/17 22:14 05/05/17 08:47 0.25 MG Dextrose/Sodium Chloride 1,000 ml @ 80 mls/hr [id number] IV 05/04/17 02:45 06/03/17 02:44 05/05/17 03:49 80 MLS/HR Spironolactone (Aldactone Tab) 100 mg QAM PO 05/04/17 09:00 06/03/17 08:59 05/05/17 07:45 100 MG Furosemide (Lasix Tab) 40 mg QAM PO 05/04/17 09:00 06/03/17 08:59 05/05/17 08:47 40 MG Albumin Human (Albumin 25%) 12.5 gm Q1H IV 05/05/17 08:00 05/05/17 11:59 05/05/17 09:54 12.5 GM Rifaximin (Xifaxan Tab) 550 mg BID PO 05/05/17 09:00 06/04/17 08:59 UNV Objective Vital Signs Date Time Temp Pulse Resp B/P (MAP) Pulse Ox O2 Delivery O2 Flow Rate FiO2 05/05/17 08:23 36.7 85 22 112/65 (81) 4 Nasal Cannula 84 105/66 (79) 05/05/17 08:00 Nasal Cannula 3.0 05/05/17 04:00 Nasal Cannula 3.0 05/05/17 03:40 36.6 84 22 78/45 (56) 96 Nasal Cannula 3.5 05/05/17 00:00 Nasal Cannula 3.0 05/04/17 23:51 37.0 82 20 80/53 (62) 97 Nasal Cannula 3.5 05/04/17 20:15 98 Nasal Cannula 3.0 05/04/17 19:19 37.0 79 15 88/57 (67) 98 Nasal Cannula 3.0 05/04/17 16:45 64/48 (53) 81/52 (62) 05/04/17 16:15 98 Nasal Cannula 3.0 05/04/17 15:00 36.7 84 20 77/52 (60) 93 Nasal Cannula 4.0 74/40 (51) 05/04/17 14:18 36.5 84 18 99/50 (66) 98 Nasal Cannula 3.0 05/04/17 12:00 86 05/04/17 12:00 95 Nasal Cannula 3.0 05/04/17 10:40 36.7 89 16 95/63 (74) 97 Nasal Cannula 4.0 Physical Exam General Appearance: + mild distress (c/o nausea, abd pain ) Eyes: normal inspection, PERRL, EOMI Neck: supple, no JVD, trachea midline Respiratory/Chest: normal breath sounds, no respiratory distress, no accessory muscle use Cardiovascular: regular rate, rhythm, no gallop, no murmur Abdomen: soft, + distended (mild), + tenderness (generalized), + pertinent finding (post paracentesis site on LLQ w/ dressing, no leakage noted. ) Extremities: normal inspection, no pedal edema, no calf tenderness Neurologic/Psych: alert, + depressed affect, + disoriented (slow mentation still but answer questions appropriately w several prompts ) Skin: no rash, + pallor Laboratory Results Last 24 Hours Test 05/04/17 11:34 05/04/17 16:01 05/04/17 20:37 05/05/17 05:16 Bedside Glucose 104 mg/dl 95 mg/dl 124 mg/dl White Blood Count 7.87 K/uL Red Blood Count 2.99 M/uL Hemoglobin 8.3 g/dL Hematocrit 25.9 % Mean Corpuscular Volume 86.6 fL Mean Corpuscular Hemoglobin 27.8 pg Mean Corpuscular Hemoglobin Concent 32.0 g/dl RDW Standard Deviation 55.1 fL RDW Coefficient of Variation 17.4 % Platelet Count 201 K/uL Mean Platelet Volume 10.5 fL Sodium Level 137 mmol/L Potassium Level 3.4 mmol/L Chloride Level 106 mmol/L Carbon Dioxide Level 25 mmol/L Anion Gap 6.0 mmol/L Blood Urea Nitrogen 11 mg/dl Creatinine 1.04 mg/dl Est Creatinine Clear Calc Drug Dose 44.5 ml/min Estimated GFR () 67.2 Estimated GFR (Non- 57.9 BUN/Creatinine Ratio 10.2 Random Glucose 99 mg/dl Calcium Level 8.3 mg/dl Magnesium Level 1.6 mg/dl Test 05/05/17 06:44 Bedside Glucose 118 mg/dl Assessment and Plan Patient is a 62 year old female w HCV (cleared) and ETOH cirrhosis complicated by recurrent ascites, hepatic encephalopathy, BRADLEY/ATN. MELD Na 22. Last ETOH intake 02/13/17. Currently admitted with worsening ascites, abdominal pain and BRADLEY, being treated for possible SBP. Had 4L ascites removal yesterday. Cell ct w/o SBP. Cr normalized now. She is c/ o abd pain and nausea. PLANS: - Lactulose 30g TID; added Xifaxan 550mg BID - U/S paracentesis w 4L removal; Albumin 25% 25g before and after paracentesis. Fluid cell ct w/o SBP but on Ceftriaxone when sample obtained, cx pending. - Restart Lasix 40mg daily, Spironolactone 100mg daily. Suspect med and 2g low sat diet non compliance. Home Health nursing already set up, recommend culinary director teaching w family/boyfriend who prepares meals. And med reconciliation at time of DC. - Will repeat paracentesis (4L) w Albumin 25% 50g repletion tomorrow 05/06 - TIPS referral at [facility] [place] for ascites control - Midodrine 7.5mg TID. Monitor renal function, B/P. Case management already consulted to help w coverage of this med in outpt setting. - Repeat KUB given abd pain and to re-eval ileus - Blood cx no growth, urine cx + Klebsiella pneumoniae. Continue Ceftriaxone coverage for now for possible SBP and UTI. Will add Albumin 25% 50g today. - No more APAP 2g a day, 2g Na diet. I performed a history and physical examination of the patient, including specifically on physical exam - abdomen is soft.I have discussed the patient's management with Nurys. Please refer to the MEAT PULLER's note for the documented findings and plan of care. No evidence of SBP. Resume diuretics today. LVP as tolerated.
--- NOTE | 2017-05-05 10:50 | Progress Note ---
Internal Med Progress Note Date of Service: May 05, 2017. Provider Documentation: SUBJECTIVE: Seen and examined at bedside More alert, awake Had Paracentesis yesterday KUB done today suggestive of Ilues Had BM today Reports abdominal generalized Denies chest pain, SOB OBJECTIVE: Vital Signs-as noted below Physical Exam: General Appearance:Thin, chronically ill appearing Head: normocephalic, Atraumatic Eyes: normal inspection, EOMI, PERRL Neck: supple, Trachea midline Respiratory/Chest: Normal breath sounds, CTA Cardiovascular: S1, S2, No murmur Abdomen/GI:Soft, distended, +Tender, Bowel sounds present Extremities/Musculoskelatal:normal inspection, no edema Neurologic/Psych:grossly no focal neurological deficits Skin: normal color, warm Lab data as noted below. ASSESSMENT & PLAN: Decompensated Cirrhosis SBP less likely H/O HCV (Cleared), ETOH cirrhosis; Recurrent ascites and Hepatic Encephalopathy ? Medical and diet compliance Patient presented with increasing abdominal distention and generalized weakness MELD: 22 Continue Lactulose 30mg TID, Rifaximin S/P paracentesis: 4 liters removed IV Albumin as per GI Ascitic fluid cultures pending Lasix 40mg daily, Spironolactone 100mg daily 2g low salt diet May need TIPS eventually Continue Midodrine 7.5mg TID Continue IV ceftriaxone for UTI Blood cultures: No growth to date Appreciate GI Input Leukocytosis resolved CT abdomen suggestive of ileus Vs partial SBO Appreciate Surgery Input: No plans for any surgical Intervention Repeat KUB today: Suggestive of Ileus, less likely P SBO UTI: Continue IV Ceftriaxone Day #2 Urine Culture:klebsiella: pansensitive Hypokalemia/Hypomagnesemia: Replace and monitor BRADLEY Cr baseline ~ 1.0 likely prerenal Resolved Cr:1.04 today Hypoglycemia improved with oral intake monitor BSGs H/O Orthostatic Hypotension Continue midodrine case management consult for midodrine coverage DVT Px: SCDs for now Disposition: To be determined PT/OT career services coordinator consulted Vital Signs: Date Time Temp Pulse Resp B/P (MAP) Pulse Ox O2 Delivery O2 Flow Rate FiO2 05/05/17 08:23 36.7 85 22 112/65 (81) 4 Nasal Cannula 84 105/66 (79) 05/05/17 08:00 Nasal Cannula 3.0 05/05/17 04:00 Nasal Cannula 3.0 05/05/17 03:40 36.6 84 22 78/45 (56) 96 Nasal Cannula 3.5 05/05/17 00:00 Nasal Cannula 3.0 05/04/17 23:51 37.0 82 20 80/53 (62) 97 Nasal Cannula 3.5 05/04/17 20:15 98 Nasal Cannula 3.0 05/04/17 19:19 37.0 79 15 88/57 (67) 98 Nasal Cannula 3.0 05/04/17 16:45 64/48 (53) 81/52 (62) 05/04/17 16:15 98 Nasal Cannula 3.0 05/04/17 15:00 36.7 84 20 77/52 (60) 93 Nasal Cannula 4.0 74/40 (51) 05/04/17 14:18 36.5 84 18 99/50 (66) 98 Nasal Cannula 3.0 Lab Results: Results Past 24 Hours Test 05/04/17 16:01 05/04/17 20:37 05/05/17 05:16 05/05/17 06:44 Range/Units Bedside Glucose 95 124 118 70-90 mg/dl White Blood Count 7.87 4.8-10.8 K/uL Red Blood Count 2.99 4.2-5.4 M/uL Hemoglobin 8.3 12.0-16.0 g/dL Hematocrit 25.9 37-47 % Mean Corpuscular Volume 86.6 80-100 fL Mean Corpuscular Hemoglobin 27.8 25-34 pg Mean Corpuscular Hemoglobin Concent 32.0 32-36 g/dl RDW Standard Deviation 55.1 36.4-46.3 fL RDW Coefficient of Variation 17.4 11.5-14.5 % Platelet Count 201 130-400 K/uL Mean Platelet Volume 10.5 7.4-10.4 fL Sodium Level 137 136-145 mmol/L Potassium Level 3.4 3.5-5.1 mmol/L Chloride Level 106 98-107 mmol/L Carbon Dioxide Level 25 21-32 mmol/L Anion Gap 6.0 3-11 mmol/L Blood Urea Nitrogen 11 7-18 mg/dl Creatinine 1.04 0.60-1.20 mg/dl Est Creatinine Clear Calc Drug Dose 44.5 ml/min Estimated GFR () 67.2 Estimated GFR (Non- 57.9 BUN/Creatinine Ratio 10.2 10-20 Random Glucose 99 70-99 mg/dl Calcium Level 8.3 8.5-10.1 mg/dl Magnesium Level 1.6 1.8-2.4 mg/dl Test 05/05/17 11:14 Range/Units Bedside Glucose 92 70-90 mg/dl
[2017-05-05] MEDS ORDERED: POTASSIUM CHLORIDE 10 MEQ TABCR PO ONE (11:15)
[2017-05-05] MEDS ORDERED: MAGNESIUM SULFATE 1GM / D5W 1 GM in PREMIXED IN D5W 100 ML IV SCH (11:15)
[2017-05-05] MEDS: RIFAXIMIN TAB 550 MG TAB PO SCH ×2 (11:22→20:46)
--- NOTE | 2017-05-05 11:31 | DIAGNOSTIC IMAGING REPORT ---
KUB CLINICAL HISTORY: Reevaluate ileus. Ascites. COMPARISON STUDY: CT of the abdomen and pelvis 12/01/2016. FINDINGS: Mild small bowel gaseous distention is similar to prior KUB of May 03, 2017. There is gas throughout the colon. No urinary calculi are identified. IMPRESSION: No change in mild gaseous distention of small bowel. An ileus is favored given gas throughout the colon. A partial small bowel obstruction could appear similar although is considered less likely. Electronically signed by: Kvng Hernandez M.D. 05/05/2017 11:30 AM Dictated Date/Time: 05/05/2017 11:26 AM
[2017-05-05] MEDS ORDERED: SODIUM CHLORIDE 0.9% 1000ML 250 ML IV ONE (16:15)
[2017-05-05] MEDS ORDERED: ALBUMIN HUMAN 25% 12.5 GM/50 ML VIAL IV ONE (16:30)
--- NOTE | 2017-05-05 16:39 | Surgery Progress Note ---
Surgery Progress Note Date of Service May 05, 2017. Subjective Post OP Day: HD # 2 + complaints still having belly pain Seems more alert today "I feel horrible" + bowel movements, 4 per nursing staff s/p Paracentesis 4L yesterday, scheduled for another tomorrow Objective Vital Signs: Date Time Temp Pulse Resp B/P (MAP) Pulse Ox O2 Delivery O2 Flow Rate FiO2 05/05/17 15:56 75 99 05/05/17 15:05 37.0 74 14 79/44 (56) 96 Nasal Cannula 3.0 05/05/17 12:00 Nasal Cannula 3.0 05/05/17 11:59 36.9 78 21 97/51 (66) 95 05/05/17 08:23 36.7 85 22 112/65 (81) 4 Nasal Cannula 84 105/66 (79) 05/05/17 08:00 Nasal Cannula 3.0 05/05/17 04:00 Nasal Cannula 3.0 05/05/17 03:40 36.6 84 22 78/45 (56) 96 Nasal Cannula 3.5 05/05/17 00:00 Nasal Cannula 3.0 05/04/17 23:51 37.0 82 20 80/53 (62) 97 Nasal Cannula 3.5 05/04/17 20:15 98 Nasal Cannula 3.0 05/04/17 19:19 37.0 79 15 88/57 (67) 98 Nasal Cannula 3.0 05/04/17 16:45 64/48 (53) 81/52 (62) General Appearance: + thin (ill appearing), + pertinent finding (elderly appearing female more than stated age) Head: normocephalic, atraumatic Neck: trachea midline Respiratory/Chest: no respiratory distress, no accessory muscle use Abdomen: soft, + distended (moderate distention), + tenderness (throughout abdomen however no peritonitis) Laboratory Results: Results Past 24 Hours Test 05/04/17 20:37 05/05/17 05:16 05/05/17 06:44 05/05/17 11:14 Range/Units Bedside Glucose 124 118 92 70-90 mg/dl White Blood Count 7.87 4.8-10.8 K/uL Red Blood Count 2.99 4.2-5.4 M/uL Hemoglobin 8.3 12.0-16.0 g/dL Hematocrit 25.9 37-47 % Mean Corpuscular Volume 86.6 80-100 fL Mean Corpuscular Hemoglobin 27.8 25-34 pg Mean Corpuscular Hemoglobin Concent 32.0 32-36 g/dl RDW Standard Deviation 55.1 36.4-46.3 fL RDW Coefficient of Variation 17.4 11.5-14.5 % Platelet Count 201 130-400 K/uL Mean Platelet Volume 10.5 7.4-10.4 fL Sodium Level 137 136-145 mmol/L Potassium Level 3.4 3.5-5.1 mmol/L Chloride Level 106 98-107 mmol/L Carbon Dioxide Level 25 21-32 mmol/L Anion Gap 6.0 3-11 mmol/L Blood Urea Nitrogen 11 7-18 mg/dl Creatinine 1.04 0.60-1.20 mg/dl Est Creatinine Clear Calc Drug Dose 44.5 ml/min Estimated GFR () 67.2 Estimated GFR (Non- 57.9 BUN/Creatinine Ratio 10.2 10-20 Random Glucose 99 70-99 mg/dl Calcium Level 8.3 8.5-10.1 mg/dl Magnesium Level 1.6 1.8-2.4 mg/dl Test 05/05/17 16:16 Range/Units Bedside Glucose 97 70-90 mg/dl Assessment & Plan 62 year-old female with history of Alcohol induced cirrhosis and recurrent ascites presents with confusion, increasing abdominal pain and distention. CT scan showing dilated small bowel concerning for Ileus vs. PSBO. Leukocytosis has resolved. Examination shows distended abdomen with moderate ascites, tenderness on palpation but no peritonitis. Plan: No acute surgical intervention required She is scheduled for US guided paracentesis again tomorrow, s/p Paracentesis yesterday 4L Most likely has Ileus secondary to moderate ascites Continue current plan established by GI and Hospitalist teams Our services signing off thank you for the consultations, call with concerns or questions Dr. Burciaga has seen and examined patient, agrees with above
[2017-05-05] MEDS: CEFTRIAXONE SOD INJ 2,000 MG in DEXTROSE 5% 50ML 50 ML IV SCH (20:41)
[2017-05-05] MEDS ORDERED: SODIUM CHLORIDE 0.9% 500ML 500 ML IV SCH (21:45)
[2017-05-06] VITALS (7 sets, daily range): BP systolic 72–100; BP diastolic 38–56; PULSE 78–95; TEMP 36.6–37.4; O2SAT 93–100
[2017-05-06] MEDS ORDERED: SODIUM CHLORIDE 0.9% 500ML 500 ML IV SCH (02:15)
[2017-05-06 05:26] LABS: BUN/CREATININE RATIO 7.7 (10-20); CALCIUM 8.4 mg/dl (8.5-10.1); CREATININE 0.97 mg/dl (0.60-1.20); MAGNESIUM 1.8 mg/dl (1.8-2.4); POTASSIUM 3.3 mmol/L (3.5-5.1)
[2017-05-06 05:39] LABS: HEMATOCRIT 21.1 % (37-47)
[2017-05-06 06:30] LABS: HEMATOCRIT 23.6 % (37-47)
[2017-05-06 06:37] LABS: INR 1.5 (0.9-1.1); PROTHROMBIN TIME (PATIENT) 15.9 SECONDS (9.0-12.0)
[2017-05-06] MEDS: LEVOTHYROXINE 25 MCG TAB PO SCH (06:37)
[2017-05-06] MEDS ORDERED: POTASSIUM CHLORIDE 10 MEQ TABCR PO ONE (07:00)
[2017-05-06] MEDS: ALBUMIN HUMAN 25% 12.5 GM/50 ML VIAL IV SCH ×4 (07:38→13:03)
[2017-05-06] MEDS: CITALOPRAM 20 MG TAB PO SCH (07:39)
[2017-05-06] MEDS: MIDODRINE 2.5 MG TAB PO SCH ×3 (07:39→16:09)
[2017-05-06] MEDS: THIAMINE HCL 100 MG TAB PO SCH (07:39)
[2017-05-06] MEDS: SPIRONOLACTONE 100 MG TAB PO SCH (07:39)
[2017-05-06] MEDS: GABAPENTIN 300 MG CAP PO SCH ×3 (07:39→22:28)
[2017-05-06] MEDS: LACTULOSE SYRUP 30 GM/45 ML UDP PO SCH (07:40)
[2017-05-06] MEDS: RIFAXIMIN TAB 550 MG TAB PO SCH ×2 (07:40→22:28)
[2017-05-06] MEDS: FUROSEMIDE 40 MG TAB PO SCH (07:40)
[2017-05-06] MEDS: SODIUM BICARBONATE 650 MG TAB PO SCH ×3 (07:40→22:28)
[2017-05-06] MEDS ORDERED: LACTULOSE SYRUP 30 GM/45 ML UDP PO SCH ×2 (09:00→21:00)
[2017-05-06] MEDS: LACTULOSE SYRUP 20 GM/30 ML UDC PO SCH ×2 (10:19→22:28)
--- NOTE | 2017-05-06 10:35 | Gastroenterology Progress Note ---
Progress Note Date of Service: May 06, 2017 Subjective Pt evaluation today including: conversation w/ patient, physical exam, chart review, lab review, review of inpatient medication list Pt appears more comfortable. Said still having LLQ abd tenderness but able to eat breakfast. Last night didn't sleep much due to frequent stools. She is due for repeat paracentesis this AM Review of Systems Constitutional: No fever Respiratory: No cough Abdomen: + see HPI, + pain, + diarrhea, No nausea, No vomiting Medications Current Inpatient Medications Medications (Trade) Dose Ordered Sig/Shelby Route Start Time Stop Time Status Last Admin Dose Admin Ondansetron HCl (Zofran Inj) 4 mg Q6H PRN IV 05/03/17 17:00 06/02/17 16:59 05/05/17 03:58 4 MG Ceftriaxone Sodium 2000 mg/ Dextrose 70 ml @ 100 mls/hr Q24H IV 05/03/17 20:00 05/13/17 19:59 05/05/17 20:41 100 MLS/HR Citalopram Hydrobromide (celeXA TAB) 20 mg DAILY PO 05/04/17 09:00 06/03/17 08:59 05/06/17 07:39 20 MG Folic Acid (Folvite Tab) 1 mg DAILY PO 05/04/17 09:00 06/03/17 08:59 05/06/17 07:38 1 MG Gabapentin (Neurontin Cap) 300 mg TID PO 05/03/17 21:00 06/02/17 20:59 05/06/17 07:39 300 MG Levothyroxine Sodium (Synthroid Tab) 25 mcg DAILYBB PO 05/04/17 06:00 06/03/17 06:59 05/06/17 06:37 25 MCG Sodium Bicarbonate (Sodium Bicarbonate Tab) 650 mg TID PO 05/03/17 21:00 06/02/17 20:59 05/06/17 07:40 650 MG Thiamine HCl (Vitamin B-1 Tab) 100 mg QAM PO 05/04/17 09:00 06/03/17 08:59 05/06/17 07:39 100 MG Midodrine (Proamatine Tab) 7.5 mg TID@0800,1200,1600 PO 05/04/17 08:00 06/03/17 07:59 05/06/17 07:39 7.5 MG Hydromorphone HCl (Dilaudid Inj) 0.25 mg Q4H PRN IV 05/03/17 22:15 05/17/17 22:14 05/05/17 08:47 0.25 MG Spironolactone (Aldactone Tab) 100 mg QAM PO 05/04/17 09:00 06/03/17 08:59 05/06/17 07:39 100 MG Furosemide (Lasix Tab) 40 mg QAM PO 05/04/17 09:00 06/03/17 08:59 05/06/17 07:40 40 MG Rifaximin (Xifaxan Tab) 550 mg BID PO 05/05/17 11:15 06/04/17 11:14 05/06/17 07:40 550 MG Albumin Human (Albumin 25%) 12.5 gm Q1H IV 05/06/17 08:00 05/06/17 11:01 05/06/17 09:06 12.5 GM Lactulose (Chronulac Syrup) 20 gm BID PO 05/06/17 09:00 06/05/17 08:59 05/06/17 10:19 20 GM Objective Vital Signs Date Time Temp Pulse Resp B/P (MAP) Pulse Ox O2 Delivery O2 Flow Rate FiO2 05/06/17 08:00 Nasal Cannula 3.0 05/06/17 07:07 36.7 84 22 100/41 (60) 93 Nasal Cannula 3.0 91/48 (62) Humidified Oxygen 98/53 (68) 05/06/17 04:00 36.8 78 23 84/47 (59) 97 Humidified Air 3.5 05/06/17 04:00 Nasal Cannula 3.0 05/06/17 00:28 37.0 82 23 82/50 (61) 100 Humidified Air 3.5 05/05/17 23:59 Nasal Cannula 3.0 05/05/17 20:00 Nasal Cannula 3.0 05/05/17 20:00 36.9 84 16 81/38 (52) 95 3.0 05/05/17 18:56 36.9 78 15 89/49 (62) 95 3.0 05/05/17 15:56 75 99 05/05/17 15:05 37.0 74 14 79/44 (56) 96 Nasal Cannula 3.0 05/05/17 12:00 Nasal Cannula 3.0 05/05/17 11:59 36.9 78 21 97/51 (23) 95 Physical Exam General Appearance: WD/WN, no apparent distress, + thin Eyes: normal inspection, PERRL, EOMI Neck: supple, no JVD, trachea midline Respiratory/Chest: normal breath sounds, no respiratory distress, no accessory muscle use Cardiovascular: regular rate, rhythm, no gallop, no murmur Abdomen: soft, + distended, + tenderness (LLQ) Extremities: normal inspection, no pedal edema, no calf tenderness Neurologic/Psych: alert, normal mood/affect, oriented x 3 Skin: normal color, no jaundice, no rash Laboratory Results Last 24 Hours Test 05/05/17 11:14 05/05/17 16:16 05/05/17 20:25 05/06/17 04:30 Bedside Glucose 92 mg/dl 97 mg/dl 90 mg/dl Hemoglobin 6.9 g/dL Hematocrit 21.1 % Sodium Level 142 mmol/L Potassium Level 3.3 mmol/L Chloride Level 112 mmol/L Carbon Dioxide Level 27 mmol/L Anion Gap 3.0 mmol/L Blood Urea Nitrogen 7 mg/dl Creatinine 0.97 mg/dl Est Creatinine Clear Calc Drug Dose 43.7 ml/min Estimated GFR () 73.1 Estimated GFR (Non- 63.0 BUN/Creatinine Ratio 7.7 Random Glucose 69 mg/dl Calcium Level 8.4 mg/dl Magnesium Level 1.8 mg/dl Test 05/06/17 06:08 Hemoglobin 7.8 g/dL Hematocrit 23.6 % Prothrombin Time 15.9 SECONDS Prothromb Time International Ratio 1.5 Assessment and Plan Patient is a 62 year old female w HCV (cleared) and ETOH cirrhosis complicated by recurrent ascites, hepatic encephalopathy, BRADLEY/ATN. MELD Na 22. Last ETOH intake 02/13/17. Currently admitted with worsening ascites, abdominal pain and BRADLEY, being treated for possible SBP. Had 4L ascites removal 05/04/17. Cell ct w/o SBP. Cr normalized now. PLANS: - Decreased Lactulose to 20g BID; added Xifaxan 550mg BID. - U/S paracentesis w 4L removal 05/04 w/o signs of SBP; will repeat another 4L removal today. Albumin 25% 25g before and after paracentesis. - Lasix 40mg daily, Spironolactone 100mg daily. Suspect med and 2g low sat diet non compliance. Home Health nursing already set up, recommend patient financial specialist teaching w family/boyfriend who prepares meals. And med reconciliation at time of DC. - TIPS referral at [facility] for ascites control - Midodrine 7.5mg TID. Monitor renal function, B/P. Case management already consulted to help w coverage of this med in outpt setting. - Blood cx no growth, urine cx + Klebsiella pneumoniae. Continue Ceftriaxone coverage for now for possible SBP and UTI. - No more APAP 2g a day, 2g Na diet. - Will sign off; Pls call for questions/concerns over weekend I performed a history and physical examination of the patient, including specifically on physical exam - abdomen is soft.I have discussed the patient's management with Nurys. Please refer to the SALES MARKET LEADER's note for the documented findings and plan of care.
--- NOTE | 2017-05-06 11:51 | Progress Note ---
Internal Med Progress Note Date of Service: May 06, 2017. Provider Documentation: SUBJECTIVE: Seen and examined at bedside Got repeat Paracentesis today Lactulose dose decreased to 20mg BID Still has mild abdominal generalized Denies chest pain, SOB, dizziness Discussed with patient regarding code status and involving palliative care OBJECTIVE: Vital Signs-as noted below Physical Exam: General Appearance:Thin, chronically ill appearing Head: normocephalic, Atraumatic Eyes: normal inspection, EOMI, PERRL Neck: supple, Trachea midline Respiratory/Chest: Normal breath sounds, CTA Cardiovascular: S1, S2, No murmur Abdomen/GI:Soft, distended, +Tender, Bowel sounds present Extremities/Musculoskelatal:normal inspection, no edema Neurologic/Psych:grossly no focal neurological deficits Skin: normal color, warm Lab data as noted below. ASSESSMENT & PLAN: Decompensated Cirrhosis SBP less likely H/O HCV (Cleared), ETOH cirrhosis; Recurrent ascites and Hepatic Encephalopathy ? Medical and diet compliance Patient presented with increasing abdominal distention and generalized weakness MELD: 22 Continue Lactulose 20mg TID, Rifaximin S/P paracentesis: 4 liters removed IV Albumin as per GI Ascitic fluid cultures: No growth to date Lasix 40mg daily, Spironolactone 100mg daily 2g low salt diet May need TIPS eventually Continue Midodrine 7.5mg TID Continue IV ceftriaxone for UTI Blood cultures: No growth to date Appreciate GI Input Leukocytosis resolved CT abdomen suggestive of ileus Vs partial SBO Appreciate Surgery Input: No plans for any surgical Intervention Repeat KUB today: Suggestive of Ileus, less likely P SBO UTI: Continue IV Ceftriaxone Day #3 Urine Culture:klebsiella: pansensitive Hypokalemia/Hypomagnesemia: Replace and monitor BRADLEY Cr baseline ~ 1.0 likely prerenal Resolved Cr:0.97 today Hypoglycemia improved with oral intake monitor BSGs H/O Orthostatic Hypotension Continue midodrine case management consult for midodrine coverage DVT Px: SCDs for now Disposition: To be determined PT/OT consulting services manager consulted Discussed with patient regarding code status and involving palliative care: States she is not ready to make decision yet and has to discuss with her daughters. Prefers not to get palliative care involved currently. Vital Signs: Date Time Temp Pulse Resp B/P (MAP) Pulse Ox O2 Delivery O2 Flow Rate FiO2 05/06/17 12:07 36.6 87 20 98/49 (65) 98 Nasal Cannula 3.0 05/06/17 08:00 Nasal Cannula 3.0 05/06/17 07:07 36.7 84 22 100/41 (60) 93 Nasal Cannula 3.0 91/48 (62) Humidified Oxygen 98/53 (68) 05/06/17 04:00 36.8 78 23 84/47 (59) 97 Humidified Air 3.5 05/06/17 04:00 Nasal Cannula 3.0 05/06/17 00:28 37.0 82 23 82/50 (61) 100 Humidified Air 3.5 05/05/17 23:59 Nasal Cannula 3.0 05/05/17 20:00 Nasal Cannula 3.0 05/05/17 20:00 36.9 84 16 81/38 (52) 95 3.0 05/05/17 18:56 36.9 78 15 89/49 (62) 95 3.0 05/05/17 15:56 75 99 05/05/17 15:05 37.0 74 14 79/44 (56) 96 Nasal Cannula 3.0 Lab Results: Results Past 24 Hours Test 05/05/17 16:16 05/05/17 20:25 05/06/17 00:00 05/06/17 04:30 Range/Units Bedside Glucose 97 90 70-90 mg/dl Peritoneal Fluid Total Protein 2.6 g/dl Peritoneal Fluid Albumin 1.5 g/dl Hemoglobin 6.9 12.0-16.0 g/dL Hematocrit 21.1 37-47 % Sodium Level 142 136-145 mmol/L Potassium Level 3.3 3.5-5.1 mmol/L Chloride Level 112 98-107 mmol/L Carbon Dioxide Level 27 21-32 mmol/L Anion Gap 3.0 3-11 mmol/L Blood Urea Nitrogen 7 7-18 mg/dl Creatinine 0.97 0.60-1.20 mg/dl Est Creatinine Clear Calc Drug Dose 43.7 ml/min Estimated GFR () 73.1 Estimated GFR (Non- 63.0 BUN/Creatinine Ratio 7.7 10-20 Random Glucose 69 70-99 mg/dl Calcium Level 8.4 8.5-10.1 mg/dl Magnesium Level 1.8 1.8-2.4 mg/dl Test 05/06/17 06:08 05/06/17 06:36 Range/Units Hemoglobin 7.8 12.0-16.0 g/dL Hematocrit 23.6 37-47 % Prothrombin Time 15.9 9.0-12.0 SECONDS Prothromb Time International Ratio 1.5 0.9-1.1 Bedside Glucose 87 70-90 mg/dl
--- NOTE | 2017-05-06 12:06 | DIAGNOSTIC IMAGING REPORT ---
PARACENTESIS ABDOMEN W/IMAGING CLINICAL HISTORY: 62 years-old Female presenting with ascites. COMPARISON: 05/04/2017. PROCEDURE: The procedure and its risks, benefits and alternatives were discussed with the patient, and written informed consent was obtained. A timeout was performed to confirm patient identity. Limited ultrasound of the abdomen was performed to determine a safe needle entry site. The left lower quadrant was prepped and draped in the usual aseptic fashion. 1% Lidocaine was used for local anesthesia. A paracentesis needle-sheath was inserted into the peritoneal space using ultrasound guidance. The needle was removed and the sheath was connected to tubing and a vacuum suction device. A total of 4 L of clear yellow ascites was aspirated. The sheath was removed, and a dressing applied. The patient tolerated the procedure well. No immediate complications. IMPRESSION: Ultrasound-guided therapeutic paracentesis with aspiration of 4 L of ascites. Electronically signed by: Kendrick Myers M.D. 05/06/2017 12:05 PM Dictated Date/Time: 05/06/2017 12:05 PM
[2017-05-06 14:21] LABS: PERIT FL WBC 242 /uL (0-300); PERITONEAL FLUID RBC < 3000 /uL
[2017-05-06] MEDS: CEFTRIAXONE SOD INJ 2,000 MG in DEXTROSE 5% 50ML 50 ML IV SCH (22:28)
[2017-05-07 04:31] VITALS: BP 93/59; PULSE 76; TEMP 37.4; O2SAT 100
[2017-05-07] MEDS: LEVOTHYROXINE 25 MCG TAB PO SCH (05:39)
[2017-05-07 06:20] LABS: HEMATOCRIT 22.6 % (37-47); MEAN CELL VOLUME 86.3 fL (80-100); MEAN CORPUSCULAR HGB CONC 33.6 g/dl (32-36); MEAN PLATELET VOLUME 10.5 fL (7.4-10.4); PLATELET COUNT 186 K/uL (130-400); RED BLOOD COUNT 2.62 M/uL (4.2-5.4); WHITE BLOOD COUNT 7.35 K/uL (4.8-10.8)
[2017-05-07 06:53] LABS: BUN/CREATININE RATIO 8.1 (10-20); CALCIUM 8.7 mg/dl (8.5-10.1); CREATININE 0.75 mg/dl (0.60-1.20); MAGNESIUM 1.8 mg/dl (1.8-2.4); POTASSIUM 3.4 mmol/L (3.5-5.1)
[2017-05-07 07:36] VITALS: BP_SYST 80; BP_SYST 93; BP_DIAS 40; BP_DIAS 42; BP_DIAS 57; PULSE 77; PULSE 82; PULSE 93; TEMP 37.1; O2SAT 100
[2017-05-07] MEDS: SPIRONOLACTONE 100 MG TAB PO SCH (07:46)
[2017-05-07] MEDS: GABAPENTIN 300 MG CAP PO SCH ×3 (07:46→21:00)
[2017-05-07] MEDS: CITALOPRAM 20 MG TAB PO SCH (07:46)
[2017-05-07] MEDS: FUROSEMIDE 40 MG TAB PO SCH (07:46)
[2017-05-07] MEDS: MIDODRINE 2.5 MG TAB PO SCH ×3 (07:46→16:57)
[2017-05-07] MEDS: RIFAXIMIN TAB 550 MG TAB PO SCH ×2 (07:47→20:59)
[2017-05-07] MEDS: THIAMINE HCL 100 MG TAB PO SCH (07:47)
[2017-05-07] MEDS: SODIUM BICARBONATE 650 MG TAB PO SCH ×3 (07:47→20:57)
[2017-05-07] MEDS: LACTULOSE SYRUP 20 GM/30 ML UDC PO SCH ×2 (07:48→20:57)
--- NOTE | 2017-05-07 10:10 | Progress Note ---
Internal Med Progress Note Date of Service: May 07, 2017. Provider Documentation: SUBJECTIVE: Seen and examined at bedside Feels well today Abdominal pain resolved Denies chest pain, SOB, dizziness No new complaints OBJECTIVE: Vital Signs-as noted below Physical Exam: General Appearance:Thin, chronically ill appearing Head: normocephalic, Atraumatic Eyes: normal inspection, EOMI, PERRL Neck: supple, Trachea midline Respiratory/Chest: Decreased breath sounds, CTA Cardiovascular: S1, S2, No murmur Abdomen/GI:Soft, distended, non Tender, Bowel sounds present Extremities/Musculoskelatal:normal inspection, no edema Neurologic/Psych:grossly no focal neurological deficits Skin: normal color, warm Lab data as noted below. ASSESSMENT & PLAN: Decompensated Cirrhosis SBP less likely H/O HCV (Cleared), ETOH cirrhosis; Recurrent ascites and Hepatic Encephalopathy ? Medical and diet compliance Patient presented with increasing abdominal distention and generalized weakness MELD: 22 Continue Lactulose 20mg TID, Rifaximin S/P paracentesis: 4 liters removed IV Albumin as per GI Ascitic fluid cultures: No growth to date Lasix 40mg daily, Spironolactone 100mg daily 2g low salt diet May need TIPS eventually Continue Midodrine 7.5mg TID Continue IV ceftriaxone for UTI Blood cultures: No growth to date Appreciate GI Input Leukocytosis resolved CT abdomen suggestive of ileus Vs partial SBO Appreciate Surgery Input: No plans for any surgical Intervention Abdominal pain resolved Had BM today UTI: Continue IV Ceftriaxone Day #4 Urine Culture:klebsiella: pansensitive Hypokalemia/Hypomagnesemia: Replace and monitor BRADLEY Cr baseline ~ 1.0 likely prerenal Resolved Cr:0.75 today Hypoglycemia improved with oral intake monitor BSGs H/O Orthostatic Hypotension Continue midodrine case management consult for midodrine coverage DVT Px: SCDs for now Disposition: To be determined PT/OT commissioner of relocation services consulted Discussed with patient regarding code status and involving palliative care: States she is not ready to make decision yet and has to discuss with her daughters. Prefers not to get palliative care involved currently. Vital Signs: Date Time Temp Pulse Resp B/P (MAP) Pulse Ox O2 Delivery O2 Flow Rate FiO2 05/07/17 08:00 Nasal Cannula 3.0 05/07/17 07:36 37.1 77 16 93/57 (69) 100 Nasal Cannula 3.5 82 80/40 (53) Humidified Oxygen 93 80/42 (55) 05/07/17 04:31 37.4 76 18 93/59 (70) 100 Nasal Cannula 3.0 05/07/17 04:00 Nasal Cannula 3.0 05/07/17 00:00 Nasal Cannula 3.0 05/06/17 23:19 37.4 83 20 96/56 (69) 100 Nasal Cannula 95 94/50 (65) 81 84/47 (59) 05/06/17 20:00 Nasal Cannula 3.0 05/06/17 18:18 81 18 83/43 (56) 98 Nasal Cannula 3.5 78/53 (61) Humidified Oxygen 72/38 (49) 05/06/17 16:00 Nasal Cannula 3.0 05/06/17 15:58 37.0 78 20 86/45 (59) 100 Nasal Cannula 3.5 Humidified Oxygen 05/06/17 12:07 36.6 87 20 98/49 (65) 98 Nasal Cannula 3.0 05/06/17 12:00 Nasal Cannula 3.0 Lab Results: Results Past 24 Hours Test 05/06/17 16:24 05/06/17 20:14 05/07/17 05:30 05/07/17 06:33 Range/Units Bedside Glucose 101 124 85 70-90 mg/dl White Blood Count 7.35 4.8-10.8 K/uL Red Blood Count 2.62 4.2-5.4 M/uL Hemoglobin 7.6 12.0-16.0 g/dL Hematocrit 22.6 37-47 % Mean Corpuscular Volume 86.3 80-100 fL Mean Corpuscular Hemoglobin 29.0 25-34 pg Mean Corpuscular Hemoglobin Concent 33.6 32-36 g/dl RDW Standard Deviation 55.2 36.4-46.3 fL RDW Coefficient of Variation 17.6 11.5-14.5 % Platelet Count 186 130-400 K/uL Mean Platelet Volume 10.5 7.4-10.4 fL Sodium Level 140 136-145 mmol/L Potassium Level 3.4 3.5-5.1 mmol/L Chloride Level 110 98-107 mmol/L Carbon Dioxide Level 25 21-32 mmol/L Anion Gap 5.0 3-11 mmol/L Blood Urea Nitrogen 6 7-18 mg/dl Creatinine 0.75 0.60-1.20 mg/dl Est Creatinine Clear Calc Drug Dose 56.6 ml/min Estimated GFR () 99.7 Estimated GFR (Non- 86.0 BUN/Creatinine Ratio 8.1 10-20 Random Glucose 74 70-99 mg/dl Calcium Level 8.7 8.5-10.1 mg/dl Magnesium Level 1.8 1.8-2.4 mg/dl
[2017-05-07] MEDS ORDERED: POTASSIUM CHLORIDE 10 MEQ TABCR PO ONE (10:30)
[2017-05-07 12:00] VITALS: BP 85/42; PULSE 80; TEMP 36.7; O2SAT 100
[2017-05-07 15:16] VITALS: BP 95/55; PULSE 67; TEMP 37.2; O2SAT 100
[2017-05-07 19:34] VITALS: BP_SYST 72; BP_SYST 75; BP_SYST 92; BP_DIAS 39; BP_DIAS 47; PULSE 69; TEMP 36.8; O2SAT 100
[2017-05-07] MEDS: CEFTRIAXONE SOD INJ 2,000 MG in DEXTROSE 5% 50ML 50 ML IV SCH (20:27)
[2017-05-08] MEDS ORDERED: RIFAXIMIN TAB 550 MG TAB PO SCH
[2017-05-08 00:09] VITALS: BP_SYST 76; BP_SYST 79; BP_SYST 88; BP_DIAS 46; BP_DIAS 47; BP_DIAS 50; PULSE 68; PULSE 80; TEMP 37.2; O2SAT 100
[2017-05-08 04:16] VITALS: BP 84/48; PULSE 72; TEMP 37; O2SAT 99
[2017-05-08 05:39] LABS: HEMATOCRIT 23.8 % (37-47); MEAN CELL VOLUME 86.5 fL (80-100); MEAN CORPUSCULAR HEMOGLOBIN 28.4 pg (25-34); MEAN CORPUSCULAR HGB CONC 32.8 g/dl (32-36); MEAN PLATELET VOLUME 10.3 fL (7.4-10.4); PLATELET COUNT 177 K/uL (130-400); RED BLOOD COUNT 2.75 M/uL (4.2-5.4); WHITE BLOOD COUNT 8.78 K/uL (4.8-10.8)
[2017-05-08 06:10] LABS: BUN/CREATININE RATIO 13.7 (10-20); CALCIUM 8.6 mg/dl (8.5-10.1); CREATININE 0.72 mg/dl (0.60-1.20); MAGNESIUM 1.6 mg/dl (1.8-2.4); POTASSIUM 4.1 mmol/L (3.5-5.1)
[2017-05-08] MEDS: LEVOTHYROXINE 25 MCG TAB PO SCH (06:26)
[2017-05-08 07:05] VITALS: BP_SYST 81; BP_SYST 94; BP_DIAS 52; BP_DIAS 59; PULSE 75; PULSE 77; PULSE 88; TEMP 37.7; O2SAT 98
[2017-05-08] MEDS: GABAPENTIN 300 MG CAP PO SCH (08:08)
[2017-05-08] MEDS: SODIUM BICARBONATE 650 MG TAB PO SCH (08:08)
[2017-05-08] MEDS: CITALOPRAM 20 MG TAB PO SCH (08:08)
[2017-05-08] MEDS: RIFAXIMIN TAB 550 MG TAB PO SCH (08:08)
[2017-05-08] MEDS: THIAMINE HCL 100 MG TAB PO SCH (08:09)
[2017-05-08] MEDS: SPIRONOLACTONE 100 MG TAB PO SCH (08:09)
[2017-05-08] MEDS: FUROSEMIDE 40 MG TAB PO SCH (08:09)
[2017-05-08] MEDS: MIDODRINE 2.5 MG TAB PO SCH ×2 (08:09→12:45)
[2017-05-08] MEDS: LACTULOSE SYRUP 20 GM/30 ML UDC PO SCH (08:13)
[2017-05-08] MEDS ORDERED: MAGNESIUM SULFATE 1GM / D5W 1 GM in PREMIXED IN D5W 100 ML IV ONE (10:30)
--- NOTE | 2017-05-08 10:47 | Progress Note ---
Internal Med Progress Note Date of Service: May 08, 2017. Provider Documentation: SUBJECTIVE: Seen and examined at bedside Doing well BP stable Denies chest pain, abd pain, SOB, dizziness No new complaints Refuses Rehab placement OBJECTIVE: Vital Signs-as noted below Physical Exam: General Appearance:Thin, chronically ill appearing Head: normocephalic, Atraumatic Eyes: normal inspection, EOMI, PERRL Neck: supple, Trachea midline Respiratory/Chest: Decreased breath sounds, CTA Cardiovascular: S1, S2, No murmur Abdomen/GI:Soft, distended, non Tender, Bowel sounds present Extremities/Musculoskelatal:normal inspection, no edema Neurologic/Psych:grossly no focal neurological deficits Skin: normal color, warm Lab data as noted below. ASSESSMENT & PLAN: Decompensated Cirrhosis SBP less likely H/O HCV (Cleared), ETOH cirrhosis; Recurrent ascites and Hepatic Encephalopathy ? Medical and diet compliance Patient presented with increasing abdominal distention and generalized weakness MELD: 22 Continue Lactulose 20mg TID, Rifaximin S/P paracentesis: 4 liters removed IV Albumin as per GI Ascitic fluid cultures: No growth to date Lasix 40mg daily, Spironolactone 100mg daily 2g low salt diet May need TIPS eventually Continue Midodrine 7.5mg TID Blood cultures: No growth to date Appreciate GI Input Leukocytosis resolved CT abdomen suggestive of ileus Vs partial SBO Appreciate Surgery Input: No plans for any surgical Intervention Abdominal pain resolved Needs follow up with GI as outpatient UTI: Continue IV Ceftriaxone Day #5 Urine Culture:klebsiella: pansensitive Hypokalemia/Hypomagnesemia: Replace and monitor BRADLEY Cr baseline ~ 1.0 likely prerenal Resolved Cr:0.72 today Hypoglycemia improved with oral intake monitor BSGs H/O Orthostatic Hypotension Continue midodrine case management consult for midodrine coverage DVT Px: SCDs for now Disposition: Would benefit from Rehab placement but patient refused PT/OT inpatient services rn consulted Discussed with patient regarding code status and involving palliative care: States she is not ready to make decision yet and has to discuss with her daughters. Prefers not to get palliative care involved currently. Follow up with in 1 week as advised Follow up with your configuration technician Nurys Bazzi on May 20, 2017 at 12:15pm Take medications as prescribed Seek immediate medical attention if your symptoms reoccur or worsen Vital Signs: Date Time Temp Pulse Resp B/P (MAP) Pulse Ox O2 Delivery O2 Flow Rate FiO2 05/08/17 08:00 Nasal Cannula 3.0 05/08/17 07:05 37.7 77 19 94/59 (71) 98 Nasal Cannula 2.0 75 81/52 (62) Humidified Oxygen 88 81/52 (62) 05/08/17 04:16 37.0 72 20 84/48 (60) 99 05/08/17 04:00 Nasal Cannula 3.0 05/08/17 00:09 37.2 68 18 88/50 (63) 100 80 79/46 (57) 80 76/47 (57) 05/08/17 00:00 Nasal Cannula 3.0 05/07/17 20:00 Nasal Cannula 3.0 05/07/17 19:34 36.8 69 19 92/47 (62) 100 Nasal Cannula 4.0 72/39 (50) 75/47 (56) 05/07/17 16:00 Nasal Cannula 3.0 05/07/17 15:16 37.2 67 13 95/55 (68) 100 Nasal Cannula 4.0 05/07/17 12:00 36.7 80 18 85/42 (56) 100 Room Air 05/07/17 12:00 Nasal Cannula 3.0 Lab Results: Results Past 24 Hours Test 05/07/17 11:24 05/07/17 16:23 05/07/17 20:41 05/08/17 05:04 Range/Units Bedside Glucose 129 102 115 70-90 mg/dl White Blood Count 8.78 4.8-10.8 K/uL Red Blood Count 2.75 4.2-5.4 M/uL Hemoglobin 7.8 12.0-16.0 g/dL Hematocrit 23.8 37-47 % Mean Corpuscular Volume 86.5 80-100 fL Mean Corpuscular Hemoglobin 28.4 25-34 pg Mean Corpuscular Hemoglobin Concent 32.8 32-36 g/dl RDW Standard Deviation 55.7 36.4-46.3 fL RDW Coefficient of Variation 17.5 11.5-14.5 % Platelet Count 177 130-400 K/uL Mean Platelet Volume 10.3 7.4-10.4 fL Sodium Level 137 136-145 mmol/L Potassium Level 4.1 3.5-5.1 mmol/L Chloride Level 106 98-107 mmol/L Carbon Dioxide Level 25 21-32 mmol/L Anion Gap 6.0 3-11 mmol/L Blood Urea Nitrogen 10 7-18 mg/dl Creatinine 0.72 0.60-1.20 mg/dl Est Creatinine Clear Calc Drug Dose 58.9 ml/min Estimated GFR () 104.8 Estimated GFR (Non- 90.4 BUN/Creatinine Ratio 13.7 10-20 Random Glucose 73 70-99 mg/dl Calcium Level 8.6 8.5-10.1 mg/dl Magnesium Level 1.6 1.8-2.4 mg/dl
[2017-05-08] MEDS ORDERED: LACT15SO PO (10:54)
[2017-05-08] MEDS ORDERED: XFX550 PO (10:54)
[2017-05-08] MEDS ORDERED: LSX40 PO (10:54)
[2017-05-08] MEDS ORDERED: CEFU250T15 PO (10:56)
--- NOTE | 2017-05-08 11:00 | Discharge Summary ---
Discharge Summary Date of Service May 08, 2017. Discharge Summary Admission Date: May 03, 2017 at 17:03 Discharge Date: May 08, 2017 Discharge Disposition: Home with services Principal Diagnosis: Decompensated Cirrhosis, UTI, BRADLEY Procedures: CT abd: 1. Cirrhotic liver with large volume of abdominal and pelvic ascites. 2. Mild small bowel dilatation. Evaluation for small bowel obstruction is difficult given extensive ascites and lack of IV contrast. The findings could reflect an ileus or partial small bowel obstruction. If progressive symptoms, a contrast-enhanced CT of the abdomen and pelvis is recommended. 3. Material within the gallbladder which could reflect sludge or stones. 4. Minimal dilatation of the common bile duct. CXR: Linear subsegmental atelectasis or scarring of the left lung base without acute cardiopulmonary process. Consultations: GI, Surgery Pending Studies/Follow-Up: Follow up with in 1 week as advised Follow up with your exhibit preparator Nurys Bazzi on May 20, 2017 at 12:15pm Take medications as prescribed Seek immediate medical attention if your symptoms reoccur or worsen Medication Reconciliation New Medications: Cefuroxime Axetil (Ceftin) 250 Mg Tab 250 MG PO BID for 3 Days, #6 TAB Furosemide (Furosemide) 40 Mg Tab 40 MG PO QAM for 30 Days, #30 TAB 1 Refill Rifaximin (Xifaxan) 550 Mg Tab 550 MG PO BID for 30 Days, #60 TAB Changed Medications: Lactulose (Constulose) 10 Gm/15 Ml Lilibeth 20 ML PO BID for 30 Days, #1 BTL 1 Refill (Changed from: 45 ML; TID; Refills: ) Continued Medications: Albuterol Hfa (Ventolin Hfa) 200 Puffs/53774 Mcg Aers 2 PUFFS INH Q4H PRN for Wheezing Citalopram (Citalopram Hydrobromide) 20 Mg Tab 20 MG PO DAILY Folic Acid (Folvite) 1 Mg Tab 1 MG PO DAILY, TAB Gabapentin (Neurontin) 300 Mg Cap 300 MG PO TID Home O2 Therapy (Oxygen) Gas 3 LITERS NA UD, BTL Hyoscyamine Sulfate (Levsin) 0.125 Mg Tab 0.125 MG PO ACHS PRN for abdominal pain or bloating Levothyroxine Sodium (Levothyroxine Sodium) 25 Mcg Tab 25 MCG PO DAILY Midodrine Hcl (Midodrine Hcl) 2.5 Mg Tab 7.5 MG PO TID has not been taking due to cost Ondansetron (Ondansetron HCl) 4 Mg Tab 4 MG PO Q8 PRN for Nausea Potassium Ext Rel (Klor-Con) 20 Meq Tabcr 20 MEQ PO DAILY Sodium Bicarbonate (Sodium Bicarbonate) 650 Mg Tab 650 MG PO TID Spironolactone (Spironolactone) 25 Mg Tab 100 MG PO DAILY Thiamine Mononitrate (Vitamin B1) 100 Mg Tab 100 MG PO QAM Tramadol HCl (Tramadol HCl) 50 Mg Tab 50 MG PO Q6H PRN for Pain Discontinued Medications: Furosemide (Furosemide) 20 Mg Tab 20 MG PO DAILY TAKE ONE 20 MG TABLET ALONG WITH ONE 40 MG TABLET TO EQUAL 60 MG DAILY DOSE Furosemide (Furosemide) 40 Mg Tab 40 MG PO DAILY TAKE ONE 40 MG TABLET ALONG WITH ONE 20 MG TABLET TO EQUAL 60 MG DAILY DOSE Nystatin (Nystatin Suspension) 1 Ml Susp 5 ML PO QID PRESCRIBED 04/28/2017, SWISH AND SWALLOW Admission Information HPI (per Admitting provider): 62 year old female who presents to the ED with abdominal pain, weakness, and confusion. Patient has history of cirrhosis with ascites, requiring several paracentesis in the past. Patient was recently admitted to [facility] 04/21 - 04/26 for decompensated cirrhosis. During that admission patient underwent 3L paracentesis. At discharge, her lactulose dose was increased. Midodrine was also increased however due to cost, patient has not been taking since discharge. Also during admission patient had a 2-step oxygen evaluation done and patient now requires 3L of oxygen. Patient was evaluated in the GI clinic on 04/29. It was felt that patient may have not been taking medications as prescribed or following the low Na+ diet. History is currently difficult to obtain from patient, some information is obtained from patient's boyfriend who is at the bedside. He reports the patient has had increasing abdominal distention since being discharged from the hospital. She is scheduled for a paracentesis in a couple of days but he doesn't think she could have waited that long. She has had generalized abdominal pain. She has been generally weak and has not been very active. No reports of chest pain or shortness of breath. Denies lightheadedness, dizziness, diaphoresis, or syncopal events. No fevers or chills. Denies urinary symptoms. In the ED, U/A is suggestive of UTI. ABD xray shows possible ileus. Patient was given IVF and IV Levaquin. Physical Exam (per Admitting): General Appearance: WD/WN, no apparent distress Head: normocephalic, atraumatic Eyes: normal inspection, EOMI, sclerae normal ENT: hearing grossly normal, + pertinent finding (mucous membranes moist) Neck: supple, no JVD, trachea midline Respiratory/Chest: lungs clear, normal breath sounds, no respiratory distress Cardiovascular: regular rate, rhythm, no edema, normal peripheral pulses Abdomen/GI: normal bowel sounds, no organomegaly, + tenderness (generalized) , + distended (marked tense ascites ) Extremities/Musculoskelatal: normal inspection, no calf tenderness, normal capillary refill Neurologic/Psych: no motor/sensory deficits, alert, normal mood/affect, oriented x 3, + pertinent finding (answers oreintation questions appropriately however seems forgetful with poor insight) Skin: normal color, warm/dry Hospital Course Decompensated Cirrhosis SBP less likely H/O HCV (Cleared), ETOH cirrhosis; Recurrent ascites and Hepatic Encephalopathy ? Medical and diet compliance Patient presented with increasing abdominal distention and generalized weakness MELD: 22 Continue Lactulose 20mg TID, Rifaximin S/P paracentesis: 4 liters removed IV Albumin as per GI Ascitic fluid cultures: No growth to date Lasix 40mg daily, Spironolactone 100mg daily 2g low salt diet May need TIPS eventually Continue Midodrine 7.5mg TID Blood cultures: No growth to date Appreciate GI Input Leukocytosis resolved CT abdomen suggestive of ileus Vs partial SBO Appreciate Surgery Input: No plans for any surgical Intervention Abdominal pain resolved Needs follow up with GI as outpatient UTI: Continue IV Ceftriaxone Day #5 Urine Culture:klebsiella: pansensitive Hypokalemia/Hypomagnesemia: Replace and monitor BRADLEY Cr baseline ~ 1.0 likely prerenal Resolved Cr:0.72 today Hypoglycemia improved with oral intake monitor BSGs H/O Orthostatic Hypotension Continue midodrine case management consult for midodrine coverage DVT Px: SCDs for now Disposition: Would benefit from Rehab placement but patient refused PT/OT supervisor special services consulted Discussed with patient regarding code status and involving palliative care: States she is not ready to make decision yet and has to discuss with her daughters. Prefers not to get palliative care involved currently. Follow up with in 1 week as advised Follow up with your exhibit preparator Nurys Bazzi on May 20, 2017 at 12:15pm Take medications as prescribed Seek immediate medical attention if your symptoms reoccur or worsen Total time spent on discharge = 35 minutes This includes examination of the patient, discharge planning, medication reconciliation, and communication with other providers. Discharge Instructions Discharge Instructions Date of Service May 08, 2017. Admission Reason for Admission: Ascites Discharge Discharge Diagnosis / Problem: Decompensated Cirrhosis, UTI, BRADLEY Discharge Goals Goal(s): Decrease discomfort, Improve function Activity Recommendations Activity Limitations: resume your previous activity Exercise/Sports Limitations: as tolerated . Instructions / Follow-Up Instructions / Follow-Up Follow up with in 1 week as advised Follow up with your exhibit preparator Nurys Bazzi on May 20, 2017 at 12:15pm Take medications as prescribed Seek immediate medical attention if your symptoms reoccur or worsen Current Hospital Diet Patient's current hospital diet: Low Sodium Diet (2gm Na) Discharge Diet Recommended Diet: Low Sodium Diet (2gm Na) Pending Studies Studies pending at discharge: no Medical Emergencies . Who to Call and When: Medical Emergencies: If at any time you feel your situation is an emergency, please call 911 immediately. . Non-Emergent Contact Non-Emergency issues call your: Primary Care Provider, Supervisor Body Assembly Call Non-Emergent contact if: you have a fever, your pain is not controlled, your pain is worsening, your pain is unusual for you, your pain is concerning you, you have any medication questions Seek immediate medical attention if your symptoms reoccur or worsen . . "Provider Documentation" section prepared by Enzo Johnsno. . VTE Core Measure Inpt VTE Proph given/why not?: SCD's <Electronically signed by Enzo Johnson MD> Signed: 05/08/17 1059 Signed: The status of this report is Signed * If report status is Draft, the document has not been finalized by the responsible provider.
[2017-05-08 11:42] VITALS: BP 84/53; PULSE 71; TEMP 36.3; O2SAT 100
== END 2017-05-08 13:30 | disposition home health service (06) | DRG 433 ==
LOC: EDBD 14:11 → C.EDA 14:13 → C.2E 17:03 → ENRESERV 17:20
PROVIDERS: ADMIT Hospitalist; ATTEND Internal Medicine
PROC: 0W9G3ZX Drainage of Peritoneal Cavity, Percutaneous Approach, Diagnostic (ICD-10-PCS; principal; 2017-05-04)
PROC: 0W9G3ZZ Drainage of Peritoneal Cavity, Percutaneous Approach (ICD-10-PCS; 2017-05-06)
DX: K70.31 Alcoholic cirrhosis of liver with ascites (principal); N17.9 Acute kidney failure, unspecified; N39.0 Urinary tract infection, site not specified; K70.40 Alcoholic hepatic failure without coma; J44.9 Chronic obstructive pulmonary disease, unspecified; F32.9 Major depressive disorder, single episode, unspecified; E87.6 Hypokalemia; E83.42 Hypomagnesemia; E16.2 Hypoglycemia, unspecified; F17.200 Nicotine dependence, unspecified, uncomplicated; Z79.899 Other long term (current) drug therapy

== ENCOUNTER 2017-06-07 16:07 | Inpatient (IN) | payer OTHER ==
[~2017-06-07] VITALS: Ht 162.6 cm; Wt 48.6 kg
[~2017-06-07 16:07] MED LIST changes: -CITA20TA9 PO; +CLX/20 PO; -FLV1 PO; +FOLI1TAB8 PO; -FURO40TA3 PO; +LACT15SO PO; -LCTS240 PO; +LEVO25TA5 PO; +LSX40 PO; -MCRK20 PO; -NYSS5 PO; +ONDA4TAB9 PO; +POTA20TA16 PO; -PRMT25 PO; -SPIR25TA PO; +SPR25 PO; -SYN25 PO; +THIA1TAB11 PO; -THM100 PO; +ULT50 PO; +XFX550 PO
[2017-06-07] MEDS ORDERED: SODIUM CHLORIDE 0.9% 1000ML 500 ML IV STA (16:24)
[2017-06-07] MEDS ORDERED: TRAMADOL HCL 50 MG TAB PO STA (16:24)
[2017-06-07] MEDS ORDERED: ONDANSETRON INJ 2 MG/ML 2 ML VIAL IV STA (16:24)
--- NOTE | 2017-06-07 16:43 | DIAGNOSTIC IMAGING REPORT ---
CHEST ONE VIEW PORTABLE CLINICAL HISTORY: ABDOMINAL PAIN/GI pain COMPARISON STUDY: 05/03/2017 FINDINGS: Chronic atelectatic change at both lung bases. Lungs otherwise are clear. No evidence for cardiac enlargement. IMPRESSION: Chronic basilar atelectatic change. No acute process. The above report was generated using voice recognition software. It may contain grammatical, syntax or spelling errors. Electronically signed by: Sai Juarez M.D. 06/07/2017 4:42 PM Dictated Date/Time: 06/07/2017 4:41 PM
--- NOTE | 2017-06-07 16:44 | EMERGENCY ROOM VISIT NOTE ---
History Report prepared by Merrill: Gaby Mckeon Under the Supervision of: Dr. Oleg Albright M.D. First contact with patient: 16:17 Chief Complaint: ABDOMINAL PAIN Stated Complaint: AB PAIN History of Present Illness The patient is a 62 year old female who presents to the Emergency Room with complaints of constant generalized abdominal pain. She rates her abdominal pain as a 6/10. The patient states that movement makes her pain worse. The patient was supposed to have fluid drained from her abdomen yesterday. The patient states she usually has 4 liters drained from her abdomen. She gets 4 liters drained every week. The patient was unable to get the fluid drained from her abdomen yesterday because her blood pressure was too low. She states her blood pressure is usually low. She states she has been feeling dizzy lately from her low blood pressure. She reports vomiting and diarrhea beginning this morning. The patient is supposed to go to [place] on , two days from today, to talk about her TIPS procedure which is supposed to be done on June 17. The patient has a history of cirrhosis from alcohol abuse. The patient takes tramadol for pain and states her last dose was last night. Source of History: patient Position: abdomen Symptom Intensity: 6/10 Timing: constant Modifying Factors (Worsening): movement Associated Symptoms: + vomiting, + abdominal pain, + diarrhea Review of Systems See HPI for pertinent positives & negatives. A total of 10 systems reviewed and were otherwise negative. Past Medical & Surgical Medical Problems: (1) Alcohol abuse (2) Cirrhosis (3) COPD, moderate (4) Depression (5) H/O needle biopsy (6) Hepatitis C, chronic (7) Orthostatic hypotension Surgical Problems: (1) H/O exploratory laparotomy (2) History of appendectomy (3) History of tubal ligation Family History FH: dementia FATHER Social History Smoking Status: Current Every Day Smoker Alcohol Use: none, heavy Drug Use: none Marital Status: in relationship Housing Status: lives with family Current/Historical Medications Scheduled Citalopram (Citalopram Hydrobromide), 20 MG PO DAILY Folic Acid (Folic Acid), 1 MG PO QAM Furosemide (Lasix), 40 MG PO QAM Gabapentin (Gabapentin), 300 MG PO TID Home O2 Therapy (Oxygen), 3 LITERS NA UD Lactulose (Chronulac), 45 ML PO TID Levothyroxine Sodium (Levothyroxine Sodium), 25 MCG PO DAILY Midodrine (Midodrine HCl), 7.5 MG PO TID Potassium Ext Rel (Klor-Con), 20 MEQ PO DAILY Probiotic Product (Probiotic), 1 CAP PO DAILY Rifaximin (Xifaxan), 1 TAB PO BID Sodium Bicarbonate (Sodium Bicarbonate), 650 MG PO TID Spironolactone (Spironolactone), 100 MG PO DAILY Thiamine Mononitrate (Vitamin B1), 100 MG PO QAM Scheduled PRN Albuterol Hfa (Ventolin Hfa), 2 PUFFS INH Q4H PRN for Wheezing Hyoscyamine Sulfate (Levsin), 0.125 MG PO ACHS PRN for Abdominal Pain/Bloating Ondansetron (Ondansetron HCl), 4 MG PO Q8 PRN for Nausea Tramadol HCl (Tramadol HCl), 50 MG PO Q6H PRN for Pain Allergies Coded Allergies: No Known Allergies (Unverified , 06/06/17) Physical Exam Vital Signs Date Time Temp Pulse Resp B/P (MAP) Pulse Ox O2 Delivery O2 Flow Rate FiO2 06/07/17 18:32 69 16 79/48 100 Nasal Cannula 3.0 06/07/17 17:52 70 18 79/44 93 Nasal Cannula 3.0 06/07/17 17:00 69 20 87/54 99 Nasal Cannula 3.0 06/07/17 16:38 79 06/07/17 16:30 67 18 88/53 94 Nasal Cannula 3.0 06/07/17 16:24 36.7 68 22 78/46 100 Nasal Cannula 3.0 Physical Exam GENERAL: Patient is in no acute distress. HEENT: No acute trauma, normocephalic atraumatic, mucous membranes moist, no nasal congestion, no scleral icterus. NECK: No stridor, no adenopathy, no meningismus, trachea is midline. LUNGS: Clear to auscultation bilaterally, no wheeze, no rhonchi, breath sounds equal. HEART: Without murmurs gallops or rubs, regular rate and rhythm. ABDOMEN: Markedly distended and firm, abdomen diffusely mildly tender with no obvious hernia, no peritonitis. EXTREMITIES: No cyanosis or edema, full range of motion of all the joints without pain or difficulty, no signs for acute trauma. NEUROLOGIC: Oriented x 3, no acute motor or sensory deficits, no focal weakness. SKIN: No rash, no jaundice, no diaphoresis. Medical Decision & Procedures ER Provider Diagnostic Interpretation: Radiology results as stated below per my review and radiologist interpretation: CHEST ONE VIEW PORTABLE FINDINGS: Chronic atelectatic change at both lung bases. Lungs otherwise are clear. No evidence for cardiac enlargement. IMPRESSION: Chronic basilar atelectatic change. No acute process. The above report was generated using voice recognition software. It may contain grammatical, syntax or spelling errors. Electronically signed by: Sai Juarez M.D. CT OF THE ABDOMEN AND PELVIS WITHOUT CONTRAST FINDINGS: Subpleural right lower lobe opacity favors atelectasis. There is no pneumatosis, free air or portal venous gas. Evaluation of the abdomen and pelvis is suboptimal on this unenhanced exam. Hyperdense material within the collecting systems, ureters and bladder is from recent contrast-enhanced CT. The liver is shrunken with enlargement of the lateral segment with fissural widening. The findings are indicative of cirrhosis. Sensitivity for detection of hepatic lesions is diminished on this unenhanced exam but none are identified. There is hyperdense material within the gallbladder which is contracted. The size of the spleen is normal. Adrenal glands, kidneys and pancreas are unremarkable with exception of a few calcifications within the pancreatic head. A large volume of abdominal and pelvic ascites is noted. There is no evidence for a bowel obstruction. No suspicious osseous lesion is present. No lymphadenopathy is identified on this unenhanced exam. There is extensive atherosclerotic plaque of the abdominal aorta which is normal in caliber. Small collaterals are noted consistent with portal hypertension. IMPRESSION: 1. Cirrhosis with manifestations of portal hypertension including large volume abdominal and pelvic ascites and collateral formation. 2. No bowel obstruction. 3. Subpleural right lower lobe opacity which favors atelectasis. 4. Hyperdense material within the gallbladder which favors stones. Sludge could appear similar. No evidence for acute cholecystitis. Electronically signed by: Kvng Hernandez M.D. Laboratory Results 06/07/17 16:45 Red Blood Count 3.15, Mean Corpuscular Volume 87.6, Mean Corpuscular Hemoglobin 28.9, Mean Corpuscular Hemoglobin Concent 33.0, Mean Platelet Volume 10.5, Neutrophils (%) (Auto) 61.7, Lymphocytes (%) (Auto) 23.4, Monocytes (%) (Auto) 13.4, Eosinophils (%) (Auto) 0.9, Basophils (%) (Auto) 0.4, Neutrophils # (Auto ) 5.62, Lymphocytes # (Auto) 2.13, Monocytes # (Auto) 1.22, Eosinophils # (Auto ) 0.08, Basophils # (Auto) 0.04 06/07/17 16:45 Test 06/07/17 16:24 06/07/17 16:45 White Blood Count 9.11 K/uL (4.8-10.8) Red Blood Count 3.15 M/uL (4.2-5.4) Hemoglobin 9.1 g/dL (12.0-16.0) Hematocrit 27.6 % (37-47) Mean Corpuscular Volume 87.6 fL (80-100) Mean Corpuscular Hemoglobin 28.9 pg (25-34) Mean Corpuscular Hemoglobin Concent 33.0 g/dl (32-36) Platelet Count 248 K/uL (130-400) Mean Platelet Volume 10.5 fL (7.4-10.4) Neutrophils (%) (Auto) 61.7 % Lymphocytes (%) (Auto) 23.4 % Monocytes (%) (Auto) 13.4 % Eosinophils (%) (Auto) 0.9 % Basophils (%) (Auto) 0.4 % Neutrophils # (Auto) 5.62 K/uL (1.4-6.5) Lymphocytes # (Auto) 2.13 K/uL (1.2-3.4) Monocytes # (Auto) 1.22 K/uL (0.11-0.59) Eosinophils # (Auto) 0.08 K/uL (0-0.5) Basophils # (Auto) 0.04 K/uL (0-0.2) RDW Standard Deviation 54.4 fL (36.4-46.3) RDW Coefficient of Variation 17.0 % (11.5-14.5) Immature Granulocyte % (Auto) 0.2 % Immature Granulocyte # (Auto) 0.02 K/uL (0.00-0.02) Prothrombin Time 11.9 SECONDS (9.0-12.0) Prothromb Time International Ratio 1.1 (0.9-1.1) Activated Partial Thromboplast Time 28.5 SECONDS (21.0-31.0) Partial Thromboplastin Ratio 1.1 Anion Gap 5.0 mmol/L (3-11) Est Creatinine Clear Calc Drug Dose 18.7 ml/min Estimated GFR () 21.2 Estimated GFR (Non- 18.3 BUN/Creatinine Ratio 5.9 (10-20) Calcium Level 8.2 mg/dl (8.5-10.1) Magnesium Level 2.1 mg/dl (1.8-2.4) Total Bilirubin 0.5 mg/dl (0.2-1) Aspartate Amino Transf (AST/SGOT) 14 U/L (15-37) Alanine Aminotransferase (ALT/SGPT) 11 U/L (12-78) Alkaline Phosphatase 68 U/L (45-117) Troponin I < 0.015 ng/ml (0-0.045) Total Protein 6.6 gm/dl (6.4-8.2) Albumin 2.8 gm/dl (3.4-5.0) Globulin 3.8 gm/dl (2.5-4.0) Albumin/Globulin Ratio 0.7 (0.9-2) Lipase 93 U/L (73-393) Thyroid Stimulating Hormone (TSH) 3.480 uIu/ml (0.300-4.500) Free Thyroxine 1.16 ng/dl (0.80-1.60) Laboratory results reviewed by me. Medications Administered Medications (Trade) Dose Ordered Sig/Shelby Route Start Time Stop Time Status Last Admin Dose Admin Sodium Chloride 500 ml @ 999 mls/hr Q31M STAT IV 06/07/17 16:24 06/07/17 16:54 DC 06/07/17 16:47 999 MLS/HR Ondansetron HCl (Zofran Inj) 4 mg NOW STAT IV 06/07/17 16:24 06/07/17 16:28 DC 06/07/17 17:20 4 MG Tramadol HCl (Ultram Tab) 100 mg NOW STAT PO 06/07/17 16:24 06/07/17 16:28 DC 06/07/17 17:20 100 MG Sodium Chloride 500 ml @ 999 mls/hr Q31M STAT IV 06/07/17 17:33 06/07/17 18:03 DC 06/07/17 17:51 999 MLS/HR ECG Indication: abdominal pain Rate (beats per minute): 69 Rhythm: normal sinus Findings: no acute ischemic change, no ectopy Change: EKG interpreted by me. ED Course 161: The patient was evaluated in room B5. A complete history and physical exam was performed. 1624: Ordered Tramadol HCl 100 mg PO, Zofran Inj 4 mg IV, Sodium Chloride 500 ml @ 999 mls/hr IV. 1733: Ordered Sodium Chloride 500 ml @ 999 mls/hr IV. 1740: Discussed the patient's case with Traci Lagos. The patient will be evaluated for further management. 1811: I updated the patient on her test results. She is agreeable to the treatment plan. Medical Decision Differential diagnoses: ascites, spontaneous bacteria peritonitis, dehydration, electrolyte imbalance, anemia, viral illness, [place], UTI, worsening liver failure. There is no leukocytosis. The patient is anemic but this appears baseline looking back at previous testing. Renal panel testing demonstrates acute renal failure. There was no evidence for hepatitis. The patient appears to be in a euthyroid state. EKG shows a sinus rhythm, no acute ischemia. Cardiac enzyme testing times one is not consistent with acute cardiac injury. Chest film does not show pneumonia or CHF. Abdominal and pelvis CT shows ascites, no bowel obstruction. Gallstones were thought possible, no acute cholecystitis. Urinalysis result is pending. There is no coagulopathy. The patient received 2/500 mL saline boluses, she received oral tramadol for pain, IV Zofran for nausea. The patient is still hypotensive. She does require a hospital stay. She is in acute renal failure, hypotensive and in need of a paracentesis. She will likely benefit from IV albumin after her paracentesis. I did speak to the patient and case management. The on-call hospitalist was consulted. Medication Reconcilliation Current Medication List: was personally reviewed by me Blood Pressure Screening Patient's blood pressure: Low blood pressure Consults Time Called: 1731 Consulting Physician: Traci Lagos Returned Call: [phone] Discussed the patient's case with Traci Lagos. The patient will be evaluated for further management. Impression Primary Impression: Hypotension Additional Impressions: Acute renal failure Ascites Scribe Attestation The scribe's documentation has been prepared under my direction and personally reviewed by me in its entirety. I confirm that the note above accurately reflects all work, treatment, procedures, and medical decision making performed by me. Departure Information Dispostion Being Evaluated By Hospitalist Referrals Jeremy Maki M.D. (PCP) Patient Instructions My [facility] Problem Qualifiers
[2017-06-07 17:09] LABS: BASO % 0.4 %; BASO ABS # 0.04 K/uL (0-0.2); EOS % 0.9 %; EOS ABS # 0.08 K/uL (0-0.5); HEMATOCRIT 27.6 % (37-47); HEMOGLOBIN 9.1 g/dL (12.0-16.0); IG# 0.02 K/uL (0.00-0.02); LYMPH % 23.4 %; LYMPH ABS # 2.13 K/uL (1.2-3.4); MEAN CELL VOLUME 87.6 fL (80-100); MEAN CORPUSCULAR HEMOGLOBIN 28.9 pg (25-34); MEAN PLATELET VOLUME 10.5 fL (7.4-10.4); MONO % 13.4 %; MONO ABS # 1.22 K/uL (0.11-0.59); NEUT % 61.7 %; NEUT ABS # 5.62 K/uL (1.4-6.5); PLATELET COUNT 248 K/uL (130-400); RED CELL DISTRIBUTION WIDTH SD 54.4 fL (36.4-46.3); WHITE BLOOD COUNT 9.11 K/uL (4.8-10.8)
[2017-06-07 17:18] LABS: INR 1.1 (0.9-1.1); PTT PATIENT 28.5 SECONDS (21.0-31.0)
[2017-06-07 17:29] LABS: ALBUMIN 2.8 gm/dl (3.4-5.0); ALT/SGPT 11 U/L (12-78); AST/SGOT 14 U/L (15-37); BLOOD UREA NITROGEN 16 mg/dl (7-18); CALCIUM 8.2 mg/dl (8.5-10.1); CARBON DIOXIDE 24 mmol/L (21-32); GLUCOSE 74 mg/dl (70-99); LIPASE 93 U/L (73-393); POTASSIUM 5.4 mmol/L (3.5-5.1); SODIUM 133 mmol/L (136-145)
[2017-06-07] MEDS ORDERED: SODIUM CHLORIDE 0.9% 500ML 500 ML IV STA (17:33)
[2017-06-07 17:37] LABS: ALKALINE PHOSPHATASE 68 U/L (45-117); TOTAL PROTEIN 6.6 gm/dl (6.4-8.2)
[2017-06-07] MEDS ORDERED: PRMT25 PO (17:55)
[2017-06-07] MEDS ORDERED: FLV1 PO (17:55)
[2017-06-07] MEDS ORDERED: LCTS240 PO (17:55)
[2017-06-07] MEDS ORDERED: FRS/40 PO (17:58)
[2017-06-07] MEDS ORDERED: GABA1CAP4 PO (18:00)
--- NOTE | 2017-06-07 18:04 | DIAGNOSTIC IMAGING REPORT ---
CT OF THE ABDOMEN AND PELVIS WITHOUT CONTRAST CLINICAL HISTORY: Abdominal pain. Possible obstruction. COMPARISON STUDY: CT of the abdomen and pelvis May 03, 2017. TECHNIQUE: Axial images of the abdomen and pelvis were obtained without IV contrast. Images were reviewed in the axial, sagittal, and coronal planes. A dose lowering technique was utilized adhering to the principles of ALARA. FINDINGS: Subpleural right lower lobe opacity favors atelectasis. There is no pneumatosis, free air or portal venous gas. Evaluation of the abdomen and pelvis is suboptimal on this unenhanced exam. Hyperdense material within the collecting systems, ureters and bladder is from recent contrast-enhanced CT. The liver is shrunken with enlargement of the lateral segment with fissural widening. The findings are indicative of cirrhosis. Sensitivity for detection of hepatic lesions is diminished on this unenhanced exam but none are identified. There is hyperdense material within the gallbladder which is contracted. The size of the spleen is normal. Adrenal glands, kidneys and pancreas are unremarkable with exception of a few calcifications within the pancreatic head. A large volume of abdominal and pelvic ascites is noted. There is no evidence for a bowel obstruction. No suspicious osseous lesion is present. No lymphadenopathy is identified on this unenhanced exam. There is extensive atherosclerotic plaque of the abdominal aorta which is normal in caliber. Small collaterals are noted consistent with portal hypertension. IMPRESSION: 1. Cirrhosis with manifestations of portal hypertension including large volume abdominal and pelvic ascites and collateral formation. 2. No bowel obstruction. 3. Subpleural right lower lobe opacity which favors atelectasis. 4. Hyperdense material within the gallbladder which favors stones. Sludge could appear similar. No evidence for acute cholecystitis. Electronically signed by: Kvng Hernandez M.D. 06/07/2017 6:03 PM Dictated Date/Time: 06/07/2017 5:46 PM
[2017-06-07] MEDS ORDERED: ONDANSETRON INJ 2 MG/ML 2 ML VIAL IV PRN (18:15)
[2017-06-07] MEDS ORDERED: ACETAMINOPHEN 325 MG TAB PO PRN (18:15)
[2017-06-07] MEDS ORDERED: RIFA550T2 PO (18:41)
[2017-06-07] MEDS ORDERED: MISCCAP80 PO (18:41)
--- NOTE | 2017-06-07 19:08 | EMERGENCY ROOM VISIT NOTE ---
ED Visit Note First contact with patient: 16:17 I was asked to call [facility] in [place] to see if the patient required emergent transfer to their facility. I discussed the case with the hospitalist on-call in [place]. Everything was felt manageable at our hospital. There was no reason for any emergent transfer. Admission/observation at our facility is being arranged.
[2017-06-07] MEDS ORDERED: TRAMADOL HCL 50 MG TAB PO PRN (19:30)
[2017-06-07] MEDS ORDERED: ALBUMIN HUMAN 25% 12.5 GM/50 ML VIAL IV SCH (19:45)
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
[2017-06-07 20:26] VITALS: BP 91/51; PULSE 65; TEMP 36.9; O2SAT 100; Ht 162.6 cm; Wt 48.6 kg
[2017-06-07] MEDS ORDERED: LACTULOSE SYRUP 30 GM/45 ML UDP PO SCH (21:00)
[2017-06-07] MEDS ORDERED: MIDODRINE 2.5 MG TAB PO SCH (21:00)
[2017-06-07] MEDS ORDERED: GABAPENTIN 300 MG CAP PO SCH (21:00)
[2017-06-07] MEDS ORDERED: DEXTROSE 50% 50 ML SYR IV ONE (21:30)
[2017-06-07] MEDS ORDERED: INSULIN HUMAN REGULAR PER UNIT 10 UNITS in SYRINGE 9.9 ML IV STA (21:53)
[2017-06-07 22:15] VITALS: BP 80/51; PULSE 67; TEMP 36.4; O2SAT 96
[2017-06-07] MEDS: SODIUM BICARBONATE 650 MG TAB PO SCH (22:19)
[2017-06-07] MEDS: ALBUMIN HUMAN 25% 12.5 GM/50 ML VIAL IV SCH (22:19)
[2017-06-07] MEDS: RIFAXIMIN TAB 550 MG TAB PO SCH (22:20)
[2017-06-07] MEDS: HEPARIN SOD 5000 UNIT/0.5 ML CARP SQ SCH (22:21)
[2017-06-07 22:45] VITALS: BP 77/52; PULSE 68; TEMP 36.5; O2SAT 95
[2017-06-07 23:57] VITALS: BP 74/42; PULSE 69; TEMP 36.9; O2SAT 95
[2017-06-08] VITALS (14 sets, daily range): BP systolic 69–106; BP diastolic 40–62; PULSE 61–78; TEMP 36.3–36.9; O2SAT 94–99
[2017-06-08] MEDS ORDERED: DEXTROSE 50% 50 ML SYR ONE (00:13)
[2017-06-08] MEDS ORDERED: ALBUMIN HUMAN 25% 12.5 GM/50 ML VIAL IV ONE ×2 (00:30→01:15)
[2017-06-08] MEDS ORDERED: DEXTROSE 50% 50 ML SYR IV ONE (00:45)
[2017-06-08 01:07] LABS: HEMATOCRIT 24.3 % (37-47); MEAN CELL VOLUME 87.7 fL (80-100); MEAN CORPUSCULAR HEMOGLOBIN 28.9 pg (25-34); MEAN CORPUSCULAR HGB CONC 32.9 g/dl (32-36); MEAN PLATELET VOLUME 9.7 fL (7.4-10.4); PLATELET COUNT 223 K/uL (130-400); RED CELL DISTRIBUTION WIDTH SD 54.6 fL (36.4-46.3); WHITE BLOOD COUNT 10.25 K/uL (4.8-10.8)
[2017-06-08 01:19] LABS: ALBUMIN 2.7 gm/dl (3.4-5.0); CALCIUM 7.9 mg/dl (8.5-10.1); CREATININE 2.71 mg/dl (0.60-1.20); POTASSIUM 4.4 mmol/L (3.5-5.1)
[2017-06-08 01:25] LABS: TOTAL PROTEIN 5.7 gm/dl (6.4-8.2)
[2017-06-08] MEDS ORDERED: LACTULOSE SYRUP 30 GM/45 ML UDP PO ONE (01:28)
[2017-06-08] MEDS ORDERED: NALOXONE HCL 0.4 MG/1 ML VIAL/CARP IV STA (01:32)
--- NOTE | 2017-06-08 01:37 | Progress Note ---
Internal Med Progress Note Date of Service: Jun 08, 2017. Provider Documentation: Made aware by RN of decreased patient responsiveness around 12AM. Patient noted to be hypoglycemic earlier after IV insulin administration for hyperkalemia. Patient still with decreased responsiveness despite BSG of 240s post D50W amp administration. SBP 70s as per RN. lactic acid 2.5 ammonia 52 crea unchanged change of 2.7 AP Encephalopathy multifactorial : Hepatic encephalopathy (? SBP precipitant, patient complaining of abdominal pain as per RN account) ? incipient hepatorenal syndrome Medications (gabapentin, opioids -patient received 100 mg Tramadol at the ER) Increase lactulose dosing to 3 times a day, facilitate Xifaxan, follow ammonia level IV Ceftriaxone for possible SBP (Cefotaxime unavailable), dx/tx paracentesis in a.m. Facilitate IVF, albumin, increase midodrine dose from 7.5 to 10 mg 3 times a day ; follow lactic acid Narcan trial Decrease gabapentin, tramadol doses (hold medications for sedation/confusion) Will relay to AM provider. Vital Signs: Date Time Temp Pulse Resp B/P (MAP) Pulse Ox O2 Delivery O2 Flow Rate FiO2 06/08/17 04:46 36.7 78 18 106/61 (76) 97 Nasal Cannula 2.0 06/08/17 04:33 36.7 70 18 106/61 (76) 97 Nasal Cannula 2.0 06/08/17 04:00 Nasal Cannula 3.0 06/08/17 03:21 36.3 78 16 100/62 (75) 98 06/08/17 02:06 77 96/52 (67) 06/08/17 01:55 36.5 72 18 83/44 (57) 94 Nasal Cannula 2.0 06/08/17 01:32 71 16 69/42 (51) 96 Nasal Cannula 3.0 06/07/17 23:59 Nasal Cannula 3.0 06/07/17 23:57 36.9 69 16 74/42 (53) 95 06/07/17 22:45 36.5 68 18 77/52 (60) 95 Nasal Cannula 3.0 06/07/17 22:15 36.4 67 18 80/51 (61) 96 Nasal Cannula 3.0 06/07/17 20:26 36.9 65 17 91/51 100 Nasal Cannula 3.0 06/07/17 20:03 36.7 66 16 88/52 100 06/07/17 18:32 69 16 79/48 100 Nasal Cannula 3.0 06/07/17 17:52 70 18 79/44 93 Nasal Cannula 3.0 06/07/17 17:00 69 20 87/54 99 Nasal Cannula 3.0 06/07/17 16:38 79 06/07/17 16:30 67 18 88/53 94 Nasal Cannula 3.0 06/07/17 16:24 36.7 68 22 78/46 100 Nasal Cannula 3.0 Lab Results: Results Past 24 Hours Test 06/07/17 16:45 06/07/17 20:35 06/07/17 23:49 06/08/17 00:11 Range/Units White Blood Count 9.11 4.8-10.8 K/uL Red Blood Count 3.15 4.2-5.4 M/uL Hemoglobin 9.1 12.0-16.0 g/dL Hematocrit 27.6 37-47 % Mean Corpuscular Volume 87.6 80-100 fL Mean Corpuscular Hemoglobin 28.9 25-34 pg Mean Corpuscular Hemoglobin Concent 33.0 32-36 g/dl Platelet Count 248 130-400 K/uL Mean Platelet Volume 10.5 7.4-10.4 fL Neutrophils (%) (Auto) 61.7 % Lymphocytes (%) (Auto) 23.4 % Monocytes (%) (Auto) 13.4 % Eosinophils (%) (Auto) 0.9 % Basophils (%) (Auto) 0.4 % Neutrophils # (Auto) 5.62 1.4-6.5 K/uL Lymphocytes # (Auto) 2.13 1.2-3.4 K/uL Monocytes # (Auto) 1.22 0.11-0.59 K/uL Eosinophils # (Auto) 0.08 0-0.5 K/uL Basophils # (Auto) 0.04 0-0.2 K/uL RDW Standard Deviation 54.4 36.4-46.3 fL RDW Coefficient of Variation 17.0 11.5-14.5 % Immature Granulocyte % (Auto) 0.2 % Immature Granulocyte # (Auto) 0.02 0.00-0.02 K/uL Prothrombin Time 11.9 9.0-12.0 SECONDS Prothromb Time International Ratio 1.1 0.9-1.1 Activated Partial Thromboplast Time 28.5 21.0-31.0 SECONDS Partial Thromboplastin Ratio 1.1 Sodium Level 133 136-145 mmol/L Potassium Level 5.4 5.7 4.6 3.5-5.1 mmol/L Chloride Level 104 98-107 mmol/L Carbon Dioxide Level 24 21-32 mmol/L Anion Gap 5.0 3-11 mmol/L Blood Urea Nitrogen 16 7-18 mg/dl Creatinine 2.70 0.60-1.20 mg/dl Est Creatinine Clear Calc Drug Dose 18.7 ml/min Estimated GFR () 21.2 Estimated GFR (Non- 18.3 BUN/Creatinine Ratio 5.9 10-20 Random Glucose 74 70-99 mg/dl Calcium Level 8.2 8.5-10.1 mg/dl Magnesium Level 2.1 1.8-2.4 mg/dl Total Bilirubin 0.5 0.2-1 mg/dl Aspartate Amino Transf (AST/SGOT) 14 15-37 U/L Alanine Aminotransferase (ALT/SGPT) 11 12-78 U/L Alkaline Phosphatase 68 45-117 U/L Troponin I < 0.015 0-0.045 ng/ml Total Protein 6.6 6.4-8.2 gm/dl Albumin 2.8 3.4-5.0 gm/dl Globulin 3.8 2.5-4.0 gm/dl Albumin/Globulin Ratio 0.7 0.9-2 Lipase 93 73-393 U/L Thyroid Stimulating Hormone (TSH) 3.480 0.300-4.500 uIu/ml Free Thyroxine 1.16 0.80-1.60 ng/dl Bedside Glucose 31 70-90 mg/dl Test 06/08/17 00:20 06/08/17 00:44 06/08/17 05:10 06/08/17 05:58 Range/Units Bedside Glucose 241 70-90 mg/dl White Blood Count 10.25 4.8-10.8 K/uL Red Blood Count 2.77 4.2-5.4 M/uL Hemoglobin 8.0 8.6 12.0-16.0 g/dL Hematocrit 24.3 26.2 37-47 % Mean Corpuscular Volume 87.7 80-100 fL Mean Corpuscular Hemoglobin 28.9 25-34 pg Mean Corpuscular Hemoglobin Concent 32.9 32-36 g/dl Platelet Count 223 130-400 K/uL Mean Platelet Volume 9.7 7.4-10.4 fL Neutrophils (%) (Auto) 44.0 % Lymphocytes (%) (Auto) 38.7 % Monocytes (%) (Auto) 15.0 % Eosinophils (%) (Auto) 1.7 % Basophils (%) (Auto) 0.4 % Neutrophils # (Auto) 4.51 1.4-6.5 K/uL Lymphocytes # (Auto) 3.97 1.2-3.4 K/uL Monocytes # (Auto) 1.54 0.11-0.59 K/uL Eosinophils # (Auto) 0.17 0-0.5 K/uL Basophils # (Auto) 0.04 0-0.2 K/uL RDW Standard Deviation 54.6 36.4-46.3 fL RDW Coefficient of Variation 17.0 11.5-14.5 % Immature Granulocyte % (Auto) 0.2 % Immature Granulocyte # (Auto) 0.02 0.00-0.02 K/uL Schistocytes OCCASIONAL Sodium Level 135 136-145 mmol/L Potassium Level 4.4 3.5-5.1 mmol/L Chloride Level 104 98-107 mmol/L Carbon Dioxide Level 22 21-32 mmol/L Anion Gap 9.0 3-11 mmol/L Blood Urea Nitrogen 16 7-18 mg/dl Creatinine 2.71 0.60-1.20 mg/dl Est Creatinine Clear Calc Drug Dose 18.8 ml/min Estimated GFR () 21.1 Estimated GFR (Non- 18.2 BUN/Creatinine Ratio 6.0 10-20 Random Glucose 106 70-99 mg/dl Lactic Acid Level 2.5 0.4-2.0 mmol/L Calcium Level 7.9 8.5-10.1 mg/dl Magnesium Level 1.9 1.8-2.4 mg/dl Total Bilirubin 0.5 0.2-1 mg/dl Aspartate Amino Transf (AST/SGOT) 12 15-37 U/L Alanine Aminotransferase (ALT/SGPT) 10 12-78 U/L Alkaline Phosphatase 51 45-117 U/L Ammonia 52.0 11-32 umol/L Total Protein 5.7 6.4-8.2 gm/dl Albumin 2.7 3.4-5.0 gm/dl Globulin 3.0 2.5-4.0 gm/dl Albumin/Globulin Ratio 0.9 0.9-2 Urine Color DK YELLOW Urine Appearance CLEAR CLEAR Urine pH 5.5 4.5-7.5 Urine Specific Horatio 1.018 1.000-1.030 Urine Protein NEG NEG Urine Glucose (UA) NEG NEG Urine Ketones TRACE NEG Urine Occult Blood NEG NEG Urine Nitrite NEG NEG Urine Bilirubin NEG NEG Urine Urobilinogen NEG NEG Urine Leukocyte Esterase TRACE NEG Urine WBC (Auto) 5-10 0-5 /hpf Urine RBC (Auto) 0-4 0-4 /hpf Urine Hyaline Casts (Auto) 10-30 0-5 /lpf Urine Epithelial Cells (Auto) >30 0-5 /lpf Urine Bacteria (Auto) NEG NEG Urine Renal Epithelial Cells 0-5 /lpf Urine Crystals AMORPHOUS SEDIMENT NONE PRSENT Urine Pathogenic Casts 0 /lpf Urine Mucus PRESENT NONE PRSENT Urine Opiates Screen NEG NEG Urine Methadone, Qualitative NEG NEG Urine Barbiturates NEG NEG Urine Phencyclidine (PCP) Level NEG NEG Ur Amphetamine/Methamphetamine NEG NEG MDMA (Ecstasy) Screen NEG NEG Urine Benzodiazepines Screen NEG NEG Urine Cocaine Metabolite NEG NEG Urine Marijuana (THC) NEG NEG Microbiology Results 06/08/17 C.difficile Toxin B Gene (PCR), Received Pending 06/08/17 Urine Culture, Kelvin Batch Pending
[2017-06-08] MEDS ORDERED: SODIUM CHLORIDE 0.9% 1000ML 1,000 ML IV ONE (01:45)
[2017-06-08 01:48] LABS: BASO % 0.4 %; BASO ABS # 0.04 K/uL (0-0.2); EOS % 1.7 %; EOS ABS # 0.17 K/uL (0-0.5); IG# 0.02 K/uL (0.00-0.02); LYMPH % 38.7 %; LYMPH ABS # 3.97 K/uL (1.2-3.4); MONO ABS # 1.54 K/uL (0.11-0.59); NEUT ABS # 4.51 K/uL (1.4-6.5)
[2017-06-08] MEDS ORDERED: MIDODRINE 2.5 MG TAB PO ONE (01:50)
[2017-06-08] MEDS ORDERED: ACETAMINOPHEN 325 MG TAB PO PRN (02:00)
[2017-06-08] MEDS ORDERED: CEFTRIAXONE SOD INJ 1 GM in DEXTROSE 5% ADD-VANTAGE 50ML 50 ML IV SCH (02:00)
[2017-06-08] MEDS ORDERED: TRAMADOL HCL 50 MG TAB PO PRN (02:00)
[2017-06-08] MEDS ORDERED: LORAZEPAM 2 MG/ML 1 ML VIAL IV PRN (02:30)
[2017-06-08] MEDS: ALBUMIN HUMAN 25% 12.5 GM/50 ML VIAL IV SCH ×4 (04:30→22:09)
[2017-06-08] MEDS: HEPARIN SOD 5000 UNIT/0.5 ML CARP SQ SCH ×3 (04:54→22:10)
[2017-06-08 06:11] LABS: HEMATOCRIT 26.2 % (37-47); HEMOGLOBIN 8.6 g/dL (12.0-16.0)
[2017-06-08 06:42] LABS: CALCIUM 8.3 mg/dl (8.5-10.1); CREATININE 2.63 mg/dl (0.60-1.20); POTASSIUM 4.7 mmol/L (3.5-5.1)
[2017-06-08] MEDS: RASPBERRY SYRUP 5 ML UDP PO SCH ×3 (07:28→19:40)
[2017-06-08] MEDS: VANCOMYCIN HCL 125 MG/2.5ML SOLN PO SCH ×3 (07:28→19:41)
[2017-06-08] MEDS: LACTULOSE SYRUP 30 GM/45 ML UDP PO SCH ×3 (07:29→19:41)
[2017-06-08] MEDS: GABAPENTIN 100 MG CAP PO SCH ×3 (07:30→19:42)
[2017-06-08] MEDS: LACTOBACILLUS ACIDOPHILUS (FLORANEX) TAB PO SCH (07:31)
[2017-06-08] MEDS: CITALOPRAM 20 MG TAB PO SCH (07:31)
[2017-06-08] MEDS: LEVOTHYROXINE 25 MCG TAB PO SCH (07:31)
[2017-06-08] MEDS: RIFAXIMIN TAB 550 MG TAB PO SCH ×2 (07:31→19:43)
[2017-06-08] MEDS: SODIUM BICARBONATE 650 MG TAB PO SCH ×3 (07:32→19:43)
[2017-06-08] MEDS: THIAMINE HCL 100 MG TAB PO SCH (07:32)
--- NOTE | 2017-06-08 09:52 | Gastrointestinal Consultation ---
Gastrointestinal Consultation Date of Consultation: Jun 08, 2017 Attending Physician: Eddi Consulting Physician: Frank Reason for Consultation: c.diff, cirrhosis History of Present Illness Patient is a 62 year old female w/ ETOH cirrhosis who presented through the ED for evaluation of hypotension, abdominal distention. Of note she was to get a repeat paracentesis yesterday, BP was too now so the procedure was held, she was sent home, where home nursing checked on the pt and found she was symptomatic of her hypotension w/ lightheadedness, dizziness. Pt tells me she typically has loose stools given her lactulose. Over the past four days, her loose stools have increased in frequency and she was also experiencing nausea and episodes of vomiting. No coffee ground emesis or hematemesis. In the ED, her stool for positive for c.diff. She continues to have frequent, loose stools. No black or bloody stools. No abdominal pain or cramping. She does have abdominal pressure, related to her ascites. She notes this pressure is constant , has progressively worsened over the past few days. She is no longer having any UGI symptoms. In the ED she had fluid bolus w/ improvement of pressure and her symptoms. 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 No bowel obstruction. Subpleural right lower lobe opacity which favors atelectasis. Hyperdense material within the gallbladder which favors stones. Sludge could appear similar. No evidence for acute cholecystitis. Chest XR 06/07/17: Chronic basilar atelectatic change. No acute process Past Medical/Surgical History Medical Problems: (1) BRADLEY (acute kidney injury) Status: Acute (2) BRADLEY (acute kidney injury) Status: Acute (3) Ambulatory dysfunction Status: Acute (4) Ascites Status: Acute (5) Chest wall contusion Status: Acute (6) Chest wall pain Status: Acute (7) Diffuse abdominal pain Status: Acute (8) Elevated bilirubin Status: Acute (9) Hyperammonemia Status: Acute (10) Hypomagnesemia Status: Acute (11) Hypotension Status: Acute (12) Paresthesia Status: Acute (13) Partial small bowel obstruction Status: Acute (14) Symptomatic anemia Status: Acute Past Medical History: HCV, cirrhosis, ETOH abuse, anemia, seizure disorder, hypotension Past Surgical History: Bilateral tubal ligation, Ex lap, EGD, Colon Family History FH: dementia FATHER Social History Smoking Status: Current Every Day Smoker Alcohol Use: none, heavy Housing Status: lives with family Allergies Coded Allergies: No Known Allergies (Unverified , 06/06/17) Current Medications Home Meds and Scripts Medications Dose Route/Sig Max Daily Dose Days Date Category Probiotic (Probiotic Product) 1 Cap Cap 1 Cap PO DAILY 06/07/17 Reported Xifaxan (Rifaximin) 550 Mg Tab 1 Tab PO BID 14 06/07/17 Reported Gabapentin 300 Mg Cap 300 Mg PO TID 06/07/17 Reported Lasix (Furosemide) 40 Mg Tab 40 Mg PO QAM 06/07/17 Reported Folic Acid 1 Mg Tab 1 Mg PO QAM 06/07/17 Reported Midodrine HCl (Midodrine) 2.5 Mg Tab 7.5 Mg PO TID 06/07/17 Reported Chronulac (Lactulose) 10 Gm/15 Ml Syrp 30 Gm PO TID 06/07/17 Reported Oxygen Gas 3 Liters NA UD 05/03/17 Reported Klor-Con (Potassium Chloride) 20 Meq Tabcr 20 Meq PO DAILY 05/03/17 Reported Levothyroxine Sodium 25 Mcg Tab 25 Mcg PO DAILY 05/03/17 Reported Citalopram Hydrobromide (Citalopram) 20 Mg Tab 20 Mg PO DAILY 05/03/17 Reported Spironolactone 25 Mg Tab 100 Mg PO DAILY 05/03/17 Reported Sodium Bicarbonate 650 Mg Tab 650 Mg PO TID 05/03/17 Reported Tramadol HCl 50 Mg Tab 50 Mg PO Q6H PRN 05/03/17 Reported Ondansetron HCl (Ondansetron) 4 Mg Tab 4 Mg PO Q8 PRN 05/03/17 Reported Vitamin B1 (Thiamine Mononitrate) 100 Mg Tab 100 Mg PO QAM 05/03/17 Reported Ventolin Hfa (Albuterol) 200 Puffs/45125 Mcg Aers 2 Puffs INH Q4H PRN 10/25/16 Reported Levsin (Hyoscyamine Sulfate) 0.125 Mg Tab 0.125 Mg PO ACHS PRN 10/25/16 Reported Review of Systems Constitutional: + weakness, + fatigue, No fever, No chills Respiratory: No cough, No sputum, No shortness of breath Cardiac: No chest pain, No orthopnea Abdomen: + nausea, + vomiting, + diarrhea, No pain, No constipation, No GI bleeding Physical Exam Date Time Temp Pulse Resp B/P (MAP) Pulse Ox O2 Delivery O2 Flow Rate FiO2 06/08/17 08:00 Nasal Cannula 3.0 06/08/17 07:03 36.9 64 20 98 Nasal Cannula 2.0 06/08/17 04:46 36.7 78 18 106/61 (76) 97 Nasal Cannula 2.0 06/08/17 04:33 36.7 70 18 106/61 (76) 97 Nasal Cannula 2.0 06/08/17 04:00 Nasal Cannula 3.0 06/08/17 03:21 36.3 78 16 100/62 (75) 98 06/08/17 02:06 77 96/52 (67) 06/08/17 01:55 36.5 72 18 83/44 (57) 94 Nasal Cannula 2.0 06/08/17 01:32 71 16 69/42 (51) 96 Nasal Cannula 3.0 06/07/17 23:59 Nasal Cannula 3.0 06/07/17 23:57 36.9 69 16 74/42 (53) 95 06/07/17 22:45 36.5 68 18 77/52 (60) 95 Nasal Cannula 3.0 06/07/17 22:15 36.4 67 18 80/51 (61) 96 Nasal Cannula 3.0 06/07/17 20:26 36.9 65 17 91/51 100 Nasal Cannula 3.0 06/07/17 20:03 36.7 66 16 88/52 100 06/07/17 18:32 69 16 79/48 100 Nasal Cannula 3.0 06/07/17 17:52 70 18 79/44 93 Nasal Cannula 3.0 06/07/17 17:00 69 20 87/54 99 Nasal Cannula 3.0 06/07/17 16:38 79 06/07/17 16:30 67 18 88/53 94 Nasal Cannula 3.0 06/07/17 16:24 36.7 68 22 78/46 100 Nasal Cannula 3.0 General Appearance: no apparent distress, + thin, + pertinent finding ( chronically ill appearing) Eyes: PERRL ENT: hearing grossly normal Neck: supple Respiratory/Chest: lungs clear, normal breath sounds Cardiovascular: regular rate, rhythm Abdomen: normal bowel sounds, no organomegaly, no pulsatile mass, + tenderness (tense ascites) Neurologic/Psych: alert, normal mood/affect, oriented x 3 Skin: normal color, warm/dry Laboratory Results Last 24 Hours Test 06/07/17 16:45 06/07/17 20:35 06/07/17 23:49 06/08/17 00:11 White Blood Count 9.11 K/uL Red Blood Count 3.15 M/uL Hemoglobin 9.1 g/dL Hematocrit 27.6 % Mean Corpuscular Volume 87.6 fL Mean Corpuscular Hemoglobin 28.9 pg Mean Corpuscular Hemoglobin Concent 33.0 g/dl Platelet Count 248 K/uL Mean Platelet Volume 10.5 fL Neutrophils (%) (Auto) 61.7 % Lymphocytes (%) (Auto) 23.4 % Monocytes (%) (Auto) 13.4 % Eosinophils (%) (Auto) 0.9 % Basophils (%) (Auto) 0.4 % Neutrophils # (Auto) 5.62 K/uL Lymphocytes # (Auto) 2.13 K/uL Monocytes # (Auto) 1.22 K/uL Eosinophils # (Auto) 0.08 K/uL Basophils # (Auto) 0.04 K/uL RDW Standard Deviation 54.4 fL RDW Coefficient of Variation 17.0 % Immature Granulocyte % (Auto) 0.2 % Immature Granulocyte # (Auto) 0.02 K/uL Prothrombin Time 11.9 SECONDS Prothromb Time International Ratio 1.1 Activated Partial Thromboplast Time 28.5 SECONDS Partial Thromboplastin Ratio 1.1 Sodium Level 133 mmol/L Potassium Level 5.4 mmol/L 5.7 mmol/L 4.6 mmol/L Chloride Level 104 mmol/L Carbon Dioxide Level 24 mmol/L Anion Gap 5.0 mmol/L Blood Urea Nitrogen 16 mg/dl Creatinine 2.70 mg/dl Est Creatinine Clear Calc Drug Dose 18.7 ml/min Estimated GFR () 21.2 Estimated GFR (Non- 18.3 BUN/Creatinine Ratio 5.9 Random Glucose 74 mg/dl Calcium Level 8.2 mg/dl Magnesium Level 2.1 mg/dl Total Bilirubin 0.5 mg/dl Aspartate Amino Transf (AST/SGOT) 14 U/L Alanine Aminotransferase (ALT/SGPT) 11 U/L Alkaline Phosphatase 68 U/L Troponin I < 0.015 ng/ml Total Protein 6.6 gm/dl Albumin 2.8 gm/dl Globulin 3.8 gm/dl Albumin/Globulin Ratio 0.7 Lipase 93 U/L Thyroid Stimulating Hormone (TSH) 3.480 uIu/ml Free Thyroxine 1.16 ng/dl Bedside Glucose 31 mg/dl Test 06/08/17 00:20 06/08/17 00:44 06/08/17 04:35 06/08/17 05:10 Bedside Glucose 241 mg/dl 62 mg/dl White Blood Count 10.25 K/uL Red Blood Count 2.77 M/uL Hemoglobin 8.0 g/dL Hematocrit 24.3 % Mean Corpuscular Volume 87.7 fL Mean Corpuscular Hemoglobin 28.9 pg Mean Corpuscular Hemoglobin Concent 32.9 g/dl Platelet Count 223 K/uL Mean Platelet Volume 9.7 fL Neutrophils (%) (Auto) 44.0 % Lymphocytes (%) (Auto) 38.7 % Monocytes (%) (Auto) 15.0 % Eosinophils (%) (Auto) 1.7 % Basophils (%) (Auto) 0.4 % Neutrophils # (Auto) 4.51 K/uL Lymphocytes # (Auto) 3.97 K/uL Monocytes # (Auto) 1.54 K/uL Eosinophils # (Auto) 0.17 K/uL Basophils # (Auto) 0.04 K/uL RDW Standard Deviation 54.6 fL RDW Coefficient of Variation 17.0 % Immature Granulocyte % (Auto) 0.2 % Immature Granulocyte # (Auto) 0.02 K/uL Schistocytes OCCASIONAL Sodium Level 135 mmol/L Potassium Level 4.4 mmol/L Chloride Level 104 mmol/L Carbon Dioxide Level 22 mmol/L Anion Gap 9.0 mmol/L Blood Urea Nitrogen 16 mg/dl Creatinine 2.71 mg/dl Est Creatinine Clear Calc Drug Dose 18.8 ml/min Estimated GFR () 21.1 Estimated GFR (Non- 18.2 BUN/Creatinine Ratio 6.0 Random Glucose 106 mg/dl Lactic Acid Level 2.5 mmol/L Calcium Level 7.9 mg/dl Magnesium Level 1.9 mg/dl Total Bilirubin 0.5 mg/dl Aspartate Amino Transf (AST/SGOT) 12 U/L Alanine Aminotransferase (ALT/SGPT) 10 U/L Alkaline Phosphatase 51 U/L Ammonia 52.0 umol/L Total Protein 5.7 gm/dl Albumin 2.7 gm/dl Globulin 3.0 gm/dl Albumin/Globulin Ratio 0.9 Urine Color DK YELLOW Urine Appearance CLEAR Urine pH 5.5 Urine Specific Reeves 1.018 Urine Protein NEG Urine Glucose (UA) NEG Urine Ketones TRACE Urine Occult Blood NEG Urine Nitrite NEG Urine Bilirubin NEG Urine Urobilinogen NEG Urine Leukocyte Esterase TRACE Urine WBC (Auto) 5-10 /hpf Urine RBC (Auto) 0-4 /hpf Urine Hyaline Casts (Auto) 10-30 /lpf Urine Epithelial Cells (Auto) >30 /lpf Urine Bacteria (Auto) NEG Urine Renal Epithelial Cells /lpf Urine Crystals AMORPHOUS SEDIMENT Urine Pathogenic Casts /lpf Urine Mucus PRESENT Urine Opiates Screen NEG Urine Methadone, Qualitative NEG Urine Barbiturates NEG Urine Phencyclidine (PCP) Level NEG Ur Amphetamine/Methamphetamine NEG MDMA (Ecstasy) Screen NEG Urine Benzodiazepines Screen NEG Urine Cocaine Metabolite NEG Urine Marijuana (THC) NEG Test 06/08/17 05:31 06/08/17 05:34 06/08/17 05:58 06/08/17 06:04 Bedside Glucose 66 mg/dl 68 mg/dl 113 mg/dl Hemoglobin 8.6 g/dL Hematocrit 26.2 % Sodium Level 133 mmol/L Potassium Level 4.7 mmol/L Chloride Level 103 mmol/L Carbon Dioxide Level 24 mmol/L Anion Gap 6.0 mmol/L Blood Urea Nitrogen 17 mg/dl Creatinine 2.63 mg/dl Est Creatinine Clear Calc Drug Dose 19.4 ml/min Estimated GFR () 21.9 Estimated GFR (Non- 18.9 BUN/Creatinine Ratio 6.6 Random Glucose 70 mg/dl Lactic Acid Level 1.1 mmol/L Calcium Level 8.3 mg/dl Ammonia 28.0 umol/L Impression Patient is a 62 year old female w/ ETOH cirrhosis w/ gross ascites who was sent to ED by home health nurse who noted persisted symptomatic hypotension following inability to perform OP paracentesis due to hypotension, has been having nausea, vomiting and worsening diarrhea of recent, + for c.diff. 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 She has a history of alcohol induced liver disease and has been difficult to manage as an outpatient due to transportation issues. She presented to the hospital yesterday evening after being found to be hypotensive. She was to have a paracentesis performed but this was canceled. The patient has no specific complaints this afternoon when I'm seeing her. Physical examination Elderly appearing female Abdomen mild distention not tense Impression: Patient with a history of alcohol induced liver disease complicated by refractory ascites. The patient has been difficult to manage as an outpatient and was referred for a TIPSS procedure. Given her repeated hospital admissions perhaps it would be in the patient's best interest to be referred to a tertiary center with hepatology subspecialty care. Recommendations Hold lactulose for now Vancomycin for 14 days due to recent C. difficile infection Albumin 12.5 g every 6 hours Consider referral to a tertiary center Please call with any questions or concerns Dr. Adriana Marie
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
[2017-06-08] MEDS ORDERED: SODIUM CHLORIDE 0.9% 250ML 250 ML IV SCH (13:30)
--- NOTE | 2017-06-08 13:44 | Progress Note ---
Medicine Progress Note Date & Time of Visit: Jun 08, 2017 at 13:33. Subjective seen resting in bed just had an episode of emesis and bowel incontinence alert, oriented x 2, answered questions appropriately given some Zofran denies abdominal pain denies chest pain, dyspnea no other symptoms Objective Last 8 Hrs Date Time Temp Pulse Resp B/P (MAP) Pulse Ox O2 Delivery O2 Flow Rate FiO2 06/08/17 13:28 88/40 (56) 06/08/17 12:00 Nasal Cannula 3.0 06/08/17 11:30 36.7 63 16 82/46 (58) 95 06/08/17 11:15 36.7 68 16 80/44 (56) 95 06/08/17 08:00 Nasal Cannula 3.0 06/08/17 07:03 36.9 64 20 84/40 (55) 98 Nasal Cannula 2.0 Physical Exam: General- oriented x 2, not in distress, speaks in sentences with no effort Eyes- EOMI, anicteric ENT- oropharynx clear Neck- supple, no JVD Lungs- clear breath sounds bl Heart- regular rhythm; no murmur, normal rate Abdomen- distended abdomen, non tender Extremities- no pretibial edema, no calf tenderness Neuro- alert, oriented x 3; no gross focal deficits Skin- warm & dry Laboratory Results: Last 24 Hours Test 06/07/17 16:45 06/07/17 20:35 06/07/17 23:49 06/08/17 00:11 White Blood Count 9.11 K/uL Red Blood Count 3.15 M/uL Hemoglobin 9.1 g/dL Hematocrit 27.6 % Mean Corpuscular Volume 87.6 fL Mean Corpuscular Hemoglobin 28.9 pg Mean Corpuscular Hemoglobin Concent 33.0 g/dl Platelet Count 248 K/uL Mean Platelet Volume 10.5 fL Neutrophils (%) (Auto) 61.7 % Lymphocytes (%) (Auto) 23.4 % Monocytes (%) (Auto) 13.4 % Eosinophils (%) (Auto) 0.9 % Basophils (%) (Auto) 0.4 % Neutrophils # (Auto) 5.62 K/uL Lymphocytes # (Auto) 2.13 K/uL Monocytes # (Auto) 1.22 K/uL Eosinophils # (Auto) 0.08 K/uL Basophils # (Auto) 0.04 K/uL RDW Standard Deviation 54.4 fL RDW Coefficient of Variation 17.0 % Immature Granulocyte % (Auto) 0.2 % Immature Granulocyte # (Auto) 0.02 K/uL Prothrombin Time 11.9 SECONDS Prothromb Time International Ratio 1.1 Activated Partial Thromboplast Time 28.5 SECONDS Partial Thromboplastin Ratio 1.1 Sodium Level 133 mmol/L Potassium Level 5.4 mmol/L 5.7 mmol/L 4.6 mmol/L Chloride Level 104 mmol/L Carbon Dioxide Level 24 mmol/L Anion Gap 5.0 mmol/L Blood Urea Nitrogen 16 mg/dl Creatinine 2.70 mg/dl Est Creatinine Clear Calc Drug Dose 18.7 ml/min Estimated GFR () 21.2 Estimated GFR (Non- 18.3 BUN/Creatinine Ratio 5.9 Random Glucose 74 mg/dl Calcium Level 8.2 mg/dl Magnesium Level 2.1 mg/dl Total Bilirubin 0.5 mg/dl Aspartate Amino Transf (AST/SGOT) 14 U/L Alanine Aminotransferase (ALT/SGPT) 11 U/L Alkaline Phosphatase 68 U/L Troponin I < 0.015 ng/ml Total Protein 6.6 gm/dl Albumin 2.8 gm/dl Globulin 3.8 gm/dl Albumin/Globulin Ratio 0.7 Lipase 93 U/L Thyroid Stimulating Hormone (TSH) 3.480 uIu/ml Free Thyroxine 1.16 ng/dl Bedside Glucose 31 mg/dl Test 06/08/17 00:20 06/08/17 00:44 06/08/17 04:35 06/08/17 05:06 Bedside Glucose 241 mg/dl 62 mg/dl 64 mg/dl White Blood Count 10.25 K/uL Red Blood Count 2.77 M/uL Hemoglobin 8.0 g/dL Hematocrit 24.3 % Mean Corpuscular Volume 87.7 fL Mean Corpuscular Hemoglobin 28.9 pg Mean Corpuscular Hemoglobin Concent 32.9 g/dl Platelet Count 223 K/uL Mean Platelet Volume 9.7 fL Neutrophils (%) (Auto) 44.0 % Lymphocytes (%) (Auto) 38.7 % Monocytes (%) (Auto) 15.0 % Eosinophils (%) (Auto) 1.7 % Basophils (%) (Auto) 0.4 % Neutrophils # (Auto) 4.51 K/uL Lymphocytes # (Auto) 3.97 K/uL Monocytes # (Auto) 1.54 K/uL Eosinophils # (Auto) 0.17 K/uL Basophils # (Auto) 0.04 K/uL RDW Standard Deviation 54.6 fL RDW Coefficient of Variation 17.0 % Immature Granulocyte % (Auto) 0.2 % Immature Granulocyte # (Auto) 0.02 K/uL Schistocytes OCCASIONAL Sodium Level 135 mmol/L Potassium Level 4.4 mmol/L Chloride Level 104 mmol/L Carbon Dioxide Level 22 mmol/L Anion Gap 9.0 mmol/L Blood Urea Nitrogen 16 mg/dl Creatinine 2.71 mg/dl Est Creatinine Clear Calc Drug Dose 18.8 ml/min Estimated GFR () 21.1 Estimated GFR (Non- 18.2 BUN/Creatinine Ratio 6.0 Random Glucose 106 mg/dl Lactic Acid Level 2.5 mmol/L Calcium Level 7.9 mg/dl Magnesium Level 1.9 mg/dl Total Bilirubin 0.5 mg/dl Aspartate Amino Transf (AST/SGOT) 12 U/L Alanine Aminotransferase (ALT/SGPT) 10 U/L Alkaline Phosphatase 51 U/L Ammonia 52.0 umol/L Total Protein 5.7 gm/dl Albumin 2.7 gm/dl Globulin 3.0 gm/dl Albumin/Globulin Ratio 0.9 Test 06/08/17 05:10 06/08/17 05:34 06/08/17 05:58 06/08/17 06:04 Urine Color DK YELLOW Urine Appearance CLEAR Urine pH 5.5 Urine Specific Mcgraw 1.018 Urine Protein NEG Urine Glucose (UA) NEG Urine Ketones TRACE Urine Occult Blood NEG Urine Nitrite NEG Urine Bilirubin NEG Urine Urobilinogen NEG Urine Leukocyte Esterase TRACE Urine WBC (Auto) 5-10 /hpf Urine RBC (Auto) 0-4 /hpf Urine Hyaline Casts (Auto) 10-30 /lpf Urine Epithelial Cells (Auto) >30 /lpf Urine Bacteria (Auto) NEG Urine Renal Epithelial Cells /lpf Urine Crystals AMORPHOUS SEDIMENT Urine Pathogenic Casts /lpf Urine Mucus PRESENT Urine Opiates Screen NEG Urine Methadone, Qualitative NEG Urine Barbiturates NEG Urine Phencyclidine (PCP) Level NEG Ur Amphetamine/Methamphetamine NEG MDMA (Ecstasy) Screen NEG Urine Benzodiazepines Screen NEG Urine Cocaine Metabolite NEG Urine Marijuana (THC) NEG Bedside Glucose 68 mg/dl 113 mg/dl Hemoglobin 8.6 g/dL Hematocrit 26.2 % Sodium Level 133 mmol/L Potassium Level 4.7 mmol/L Chloride Level 103 mmol/L Carbon Dioxide Level 24 mmol/L Anion Gap 6.0 mmol/L Blood Urea Nitrogen 17 mg/dl Creatinine 2.63 mg/dl Est Creatinine Clear Calc Drug Dose 19.4 ml/min Estimated GFR () 21.9 Estimated GFR (Non- 18.9 BUN/Creatinine Ratio 6.6 Random Glucose 70 mg/dl Lactic Acid Level 1.1 mmol/L Calcium Level 8.3 mg/dl Ammonia 28.0 umol/L Date/Time Source Procedure Growth Status 06/08/17 05:10 Stool C.difficile Toxin B Gene (PCR) - Final Positive for C. difficile toxin B gene Complete 06/08/17 05:10 Urine , Clean Catch Urine Culture Pending Received Assessment & Plan LIVER CIRRHOSIS WITH ASCITES, IN THE SETTING OF HYPOTENSION - lasix and aldactone held due to acute renal failure and hypotension - scheduled for Paracentesis today Albumin q6h Midodrine increased to 10mg TID - GI recommendations noted will try to arrange transfer to [facility] if patient stable after Paracentesis - continue Lactulose and Rifaximin HYPOTENSION - secondary to volume depletion secondary to Diarrhea underlying Volume Depletion secondary to Ascites - gentle IV fluids PRN hold diuretics for now Albumin q6h, Midodrine increased ACUTE RENAL FAILURE - likely Pre Renal secondary to GI losses from C diff Diarrhea r/o Hepatorenal syndrome - Dr. Blandon on board - gentle IV fluids PRN hold diuretics for now Albumin q6h, Midodrine increased - monitor crea ANEMIA - chronic, due to underlying cirrhosis - no signs of bleeding - baseline ~ 8-9.5; 9.1 today DVT PROPHYLAXIS - SCDs DISPO - In my clinical judgment this beneficiary meets acute admission criteria, established by [facility], that includes being hospitalized through two midnights. - PT/OT, case management consults Current Inpatient Medications: Current Inpatient Medications Medications (Trade) Dose Ordered Sig/Shelby Route Start Time Stop Time Status Last Admin Dose Admin Heparin Sodium (Porcine) (Heparin Sq 5000 Unit/0.5ml) 5,000 unit Q8 SQ 06/07/17 22:00 07/07/17 21:59 06/08/17 04:54 5,000 UNIT Ondansetron HCl (Zofran Inj) 4 mg Q6H PRN IV 06/07/17 18:15 07/07/17 18:14 06/08/17 13:27 4 MG Citalopram Hydrobromide (celeXA TAB) 20 mg DAILY PO 06/08/17 09:00 07/08/17 08:59 06/08/17 07:31 20 MG Folic Acid (Folvite Tab) 1 mg QAM PO 06/08/17 09:00 07/08/17 08:59 06/08/17 07:32 1 MG Levothyroxine Sodium (Synthroid Tab) 25 mcg DAILYBB PO 06/08/17 09:00 07/08/17 08:59 06/08/17 07:31 25 MCG Rifaximin (Xifaxan Tab) 550 mg BID PO 06/07/17 21:00 07/07/17 20:59 06/08/17 07:31 550 MG Sodium Bicarbonate (Sodium Bicarbonate Tab) 650 mg TID PO 06/07/17 21:00 07/07/17 20:59 06/08/17 07:32 650 MG Lactobacillus Acidophilus (Floranex Tab) 1 tab DAILY PO 06/08/17 09:00 07/08/17 08:59 06/08/17 07:31 1 TAB Thiamine HCl (Vitamin B-1 Tab) 100 mg QAM PO 06/08/17 09:00 07/08/17 08:59 06/08/17 07:32 100 MG Albumin Human (Albumin 25%) 12.5 gm Q6H IV 06/07/17 22:00 06/10/17 21:59 06/08/17 11:09 12.5 GM Gabapentin (Neurontin Cap) 200 mg TID PO 06/08/17 09:00 07/07/17 20:59 06/08/17 07:30 200 MG Lactulose (Chronulac Syrup) 30 gm TID PO 06/08/17 09:00 07/08/17 08:59 06/08/17 07:29 30 GM Midodrine (Proamatine Tab) 10 mg TID@0700,1300,1800 PO 06/08/17 13:00 07/07/17 20:59 Acetaminophen (Tylenol Tab) 325 mg Q6H PRN PO 06/08/17 02:00 07/07/17 18:14 Tramadol HCl (Ultram Tab) 25 mg Q6H PRN PO 06/08/17 02:00 07/07/17 19:29 Lorazepam (Ativan Inj) 0.25 mg Q4H PRN IV 06/08/17 02:30 07/08/17 02:29 Vancomycin HCl (Vancomycin Oral Soln) 125 mg Q6H PO 06/08/17 06:45 06/22/17 06:44 06/08/17 07:28 125 MG Raspberry (Raspberry Syrup 5ml Cup) 5 ml Q6H PO 06/08/17 06:45 06/22/17 06:44 06/08/17 07:28 5 ML Sodium Chloride 250 ml @ 999 mls/hr Q16M IV 06/08/17 13:30 06/08/17 13:45 UNV
--- NOTE | 2017-06-08 15:15 | DIAGNOSTIC IMAGING REPORT ---
PARACENTESIS ABDOMEN W/IMAGING CLINICAL HISTORY: 62 years-old Female with ascites. COMPARISON: CT abdomen and pelvis 06/07/2017 PROCEDURE: The procedure was explained to the patient in the care including the benefits and possible risks/complications. The patient gave verbal understanding and written consent was obtained. A time-out was performed prior to the start of the procedure. The patient was placed on the ultrasound table in the supine position. Using ultrasound guidance, an appropriate procedure site in the left lower abdomen was marked. This area was then prepped and draped in the usual sterile fashion. Local anesthesia was achieved within 1% lidocaine. An 8-Cuban centesis catheter was then inserted. Approximately 5.4 liters of clear, yellowish fluid was removed and sent to the lab for analysis. The catheter was removed and external pressure was held to achieve hemostasis. A sterile dressing was applied to the procedure site. The patient tolerated the procedure well without immediate complications. IMPRESSION: Successful ultrasound-guided paracentesis with removal of 5.4 L of ascitic fluid The above report was generated using voice recognition software. It may contain grammatical, syntax or spelling errors. Electronically signed by: Gary Rodriguez M.D. 06/08/2017 3:14 PM Dictated Date/Time: 06/08/2017 3:10 PM
[2017-06-08] MEDS: MIDODRINE 2.5 MG TAB PO SCH ×2 (15:19→19:42)
[2017-06-08] MEDS ORDERED: NURSING VERBAL MED ORDER ONE (17:45)
[2017-06-08] MEDS ORDERED: NRN100 PO (18:42)
[2017-06-08] MEDS ORDERED: ULT50X PO (18:42)
[2017-06-08] MEDS ORDERED: [UNRECOGNIZED DRUG - CODE] IV (18:42)
[2017-06-08] MEDS ORDERED: PRMT25 PO (18:42)
[2017-06-08] MEDS ORDERED: VANC1SUS PO (18:42)
--- NOTE | 2017-06-08 18:47 | Discharge Instructions ---
Discharge Instructions Date of Service Jun 08, 2017. Admission Reason for Admission: Ascities Discharge Discharge Diagnosis / Problem: REFRACTORY ASCITES, IN THE SETTING OF HYPOTENSION, ACUTE RENAL FAILURE Discharge Goals Goal(s): Diagnostic testing, Therapeutic intervention Activity Recommendations Activity Level: Assistance Required Therapies: Physical Therapy, Occupational Therapy . Additional Information Patient informed of condition: Yes Advance Directives: No (UNKNOWN) DNR: No (PATIENT IS FULL CODE) Level of Care: Other ([facility]) Communicable Disease: Yes (C DIFF) Prognosis: Other (GUARDED) Oxygen at (LPM): 3 LITERS VIA NASAL CANNULA Instructions / Follow-Up Instructions / Follow-Up PLEASE REFER TO ACCOMPANYING DISCHARGE SUMMARY Current Hospital Diet Patient's current hospital diet: Low Sodium Diet (2gm Na) Discharge Diet Recommended Diet: Low Sodium Diet (2gm Na) Fluid Restriction: 1500 ml (6 cups) Procedures Procedures Performed: PARACENTESIS Pending Studies Studies pending at discharge: yes List of pending studies: PLEASE REFER TO ACCOMPANYING DISCHARGE SUMMARY. Physician Orders On Transfer Special Precautions: PLEASE REFER TO ACCOMPANYING DISCHARGE SUMMARY Medical Emergencies . Who to Call and When: Medical Emergencies: If at any time you feel your situation is an emergency, please call 911 immediately. . Non-Emergent Contact Non-Emergency issues call your: Primary Care Provider, Facilities Specialist Call Non-Emergent contact if: you have a fever, your pain is not controlled, your pain is worsening, wound has increased drainage, wound has increased redness, wound has increased pain, you have any medication questions . Past History Medical & Surgical History: (1) Depression (2) Hepatitis C, chronic (3) Cirrhosis (4) Orthostatic hypotension (5) Alcohol abuse (6) COPD, moderate (7) History of appendectomy (8) H/O exploratory laparotomy (9) History of tubal ligation . "Provider Documentation" section prepared by Germán Montague. . Core Measure Problem Core Measures: None
--- NOTE | 2017-06-08 18:55 | Discharge Summary ---
Discharge Summary Date of Service Jun 08, 2017. Discharge Summary Admission Date: Jun 07, 2017 at 18:14 Discharge Date: Jun 09, 2017 Discharge Disposition: Acute care facility ([facility]) Principal Diagnosis: LIVER CIRRHOSIS WITH REFRACTORY ASCITES, IN THE SETTING OF HYPOTENSION, ACUTE RENAL FAILURE Secondary Diagnoses/Problems: PLEASE REFER TO HOSPITAL COURSE BELOW. Procedures: PARACENTESIS ABDOMEN W/IMAGING CLINICAL HISTORY: 62 years-old Female with ascites. COMPARISON: CT abdomen and pelvis 06/07/2017 PROCEDURE: The procedure was explained to the patient in the care including the benefits and possible risks/complications. The patient gave verbal understanding and written consent was obtained. A time-out was performed prior to the start of the procedure. The patient was placed on the ultrasound table in the supine position. Using ultrasound guidance, an appropriate procedure site in the left lower abdomen was marked. This area was then prepped and draped in the usual sterile fashion. Local anesthesia was achieved within 1% lidocaine. An 8-Albanian centesis catheter was then inserted. Approximately 5.4 liters of clear, yellowish fluid was removed and sent to the lab for analysis. The catheter was removed and external pressure was held to achieve hemostasis. A sterile dressing was applied to the procedure site. The patient tolerated the procedure well without immediate complications. IMPRESSION: Successful ultrasound-guided paracentesis with removal of 5.[address] OF THE ABDOMEN AND PELVIS WITHOUT CONTRAST CLINICAL HISTORY: Abdominal pain. Possible obstruction. COMPARISON STUDY: CT of the abdomen and pelvis May 03, 2017. TECHNIQUE: Axial images of the abdomen and pelvis were obtained without IV contrast. Images were reviewed in the axial, sagittal, and coronal planes. A dose lowering technique was utilized adhering to the principles of ALARA. FINDINGS: Subpleural right lower lobe opacity favors atelectasis. There is no pneumatosis, free air or portal venous gas. Evaluation of the abdomen and pelvis is suboptimal on this unenhanced exam. Hyperdense material within the collecting systems, ureters and bladder is from recent contrast-enhanced CT. The liver is shrunken with enlargement of the lateral segment with fissural widening. The findings are indicative of cirrhosis. Sensitivity for detection of hepatic lesions is diminished on this unenhanced exam but none are identified. There is hyperdense material within the gallbladder which is contracted. The size of the spleen is normal. Adrenal glands, kidneys and pancreas are unremarkable with exception of a few calcifications within the pancreatic head. A large volume of abdominal and pelvic ascites is noted. There is no evidence for a bowel obstruction. No suspicious osseous lesion is present. No lymphadenopathy is identified on this unenhanced exam. There is extensive atherosclerotic plaque of the abdominal aorta which is normal in caliber. Small collaterals are noted consistent with portal hypertension. IMPRESSION: 1. Cirrhosis with manifestations of portal hypertension including large volume abdominal and pelvic ascites and collateral formation. 2. No bowel obstruction. 3. Subpleural right lower lobe opacity which favors atelectasis. 4. Hyperdense material within the gallbladder which favors stones. Sludge could appear similar. No evidence for acute cholecystitis. Consultations: GASTROENTEROLOGY, NEPHROLOGY Pending Studies/Follow-Up: Please refer to hospital course below. Medication Reconciliation New Medications: Albumin, Human (Albumin Human) 25 % Inj 12.5 GM IV Q6H for 2 Days Gabapentin (Gabapentin) 100 Mg Cap 200 MG PO TID for 10 Days Midodrine (Midodrine HCl) 2.5 Mg Tab 10 MG PO TID@0700,1300,1800 for 10 Days, TAB Tramadol HCl (Tramadol HCl) 50 Mg Tab 25 MG PO Q6H PRN for Pain for 7 Days, #14 TAB Vancomycin HCl (Vancomycin HCl + Syrspend) 50 Mg/Ml Olivia 125 MG PO Q6H for 10 Days Continued Medications: Albuterol Hfa (Ventolin Hfa) 200 Puffs/25115 Mcg Aers 2 PUFFS INH Q4H PRN for Wheezing Citalopram (Citalopram Hydrobromide) 20 Mg Tab 20 MG PO DAILY Folic Acid (Folic Acid) 1 Mg Tab 1 MG PO QAM Home O2 Therapy (Oxygen) Gas 3 LITERS NA UD, BTL Hyoscyamine Sulfate (Levsin) 0.125 Mg Tab 0.125 MG PO ACHS PRN for Abdominal Pain/Bloating Levothyroxine Sodium (Levothyroxine Sodium) 25 Mcg Tab 25 MCG PO DAILY Ondansetron (Ondansetron HCl) 4 Mg Tab 4 MG PO Q8 PRN for Nausea Probiotic Product (Probiotic) 1 Cap Cap 1 CAP PO DAILY Rifaximin (Xifaxan) 550 Mg Tab 1 TAB PO BID for 14 Days, #28 TAB Sodium Bicarbonate (Sodium Bicarbonate) 650 Mg Tab 650 MG PO TID Thiamine Mononitrate (Vitamin B1) 100 Mg Tab 100 MG PO QAM Discontinued Medications: Furosemide (Lasix) 40 Mg Tab 40 MG PO QAM, TAB Gabapentin (Gabapentin) 300 Mg Cap 300 MG PO TID Lactulose (Chronulac) 10 Gm/15 Ml Syrp 30 GM PO TID Midodrine (Midodrine HCl) 2.5 Mg Tab 7.5 MG PO TID Potassium Ext Rel (Klor-Con) 20 Meq Tabcr 20 MEQ PO DAILY Spironolactone (Spironolactone) 25 Mg Tab 100 MG PO DAILY Tramadol HCl (Tramadol HCl) 50 Mg Tab 50 MG PO Q6H PRN for Pain Admission Information HPI (per Admitting provider): 62 year old female who presents to the ED with hypotension and abdominal distention. Patient has history of cirrhosis with recurrent ascites requiring weekly paracentesis. Patient was to have a paracentesis yesterday however her blood pressure was too low so the procedure was not preformed. Home health nursing visited with the patient today and found her to be persistently hypotensive with lightheadedness and dizziness. Patient also reports nausea for the past few days with vomiting today. She denies hematemesis and coffee ground emesis. She has chronic loose stools at baseline which she feels has been worsening for the past week. She denies fever and chills. No chest pain or shortness of breath. No urinary symptoms. In the ED, patient is found to have creat 2.7 (normal baseline). She remains hypotensive with systolics in the 80s- 90s however patient is fairly asymptomatic. She received 1L IVF with improvement in BPs. Physical Exam (per Admitting): General Appearance: no apparent distress, + thin (with large amount of ascites) Head: normocephalic, atraumatic Eyes: normal inspection, EOMI, sclerae normal ENT: hearing grossly normal, + pertinent finding (mucous membranes moist) Neck: supple, no JVD, trachea midline Respiratory/Chest: no respiratory distress, + decreased breath sounds Cardiovascular: regular rate, rhythm, no edema, normal peripheral pulses Abdomen/GI: normal bowel sounds, no organomegaly, + tenderness (generalized) , + distended (firm, large amount of ascites) Extremities/Musculoskelatal: normal inspection, no calf tenderness, normal capillary refill Neurologic/Psych: no motor/sensory deficits, alert, normal mood/affect, oriented x 3 Skin: normal color, warm/dry Hospital Course LIVER CIRRHOSIS WITH REFRACTORY ASCITES, IN THE SETTING OF HYPOTENSION, ACUTE RENAL FAILURE - patient undergoes weekly Paracentesis as outpatient has been evaluated by Dr. Leonel Mendez, Hepatology, [facility] last 05/23/17 for TIPS - presented to the ER as paracentesis could not be performed as outpatient due to hypotension- systolic 70s upon arrival found to have acute renal failure crea 2.7 from baseline <1 - Nephrology consulted lasix and aldactone held due to acute renal failure and hypotension - s/p Paracentesis, draining 5L, 06/08/17 Albumin q6h Midodrine increased to 10mg TID - GI recommendations noted, recommend transfer to [facility] for Hepatology Care [facility] contacted, patient was kindly accepted by Dr. Pryor - Lactulose held for C diff colitis Rifaximin continued 06/09/17: patient's Bp improved 98-128 systolic awaiting transfer to [facility] HYPOTENSION - secondary to volume depletion secondary to Diarrhea underlying Volume Depletion secondary to Ascites - gentle IV fluids PRN hold diuretics for now Albumin q6h, Midodrine increased 06/09/17: patient's Bp improved 98-128 systolic awaiting transfer to [facility] ACUTE RENAL FAILURE - likely Pre Renal secondary to GI losses from C diff Diarrhea r/o Hepatorenal syndrome - Dr. Blandon on board - gentle IV fluids PRN hold diuretics for now Albumin q6h, Midodrine increased - crea 2.7 to 2.59 monitor MILD HYPERKALEMIA - 06/09 9am 5.2 1pm 5.3 530pm 5.6 - no ekg changes in tele - avoiding Dextrose + insulin as patient developed hypoglycemia the other day with this approach will give 1 dose of Kayexalate - MONITOR POTASSIUM LEVEL CLOSELY, REPEAT THIS EVENING 06/09/17 ANEMIA - chronic, due to underlying cirrhosis - no signs of bleeding - baseline ~ 8-9.5; DVT PROPHYLAXIS - SCDs DISPO transfer to [facility] Total time spent on discharge = 45 minutes This includes examination of the patient, discharge planning, medication reconciliation, and communication with other providers. Total time spent on discharge = 45 minutes This includes examination of the patient, discharge planning, medication reconciliation, and communication with other providers. Discharge Instructions Discharge Instructions Date of Service Jun 08, 2017. Admission Reason for Admission: Ascities Discharge Discharge Diagnosis / Problem: REFRACTORY ASCITES, IN THE SETTING OF HYPOTENSION, ACUTE RENAL FAILURE Discharge Goals Goal(s): Diagnostic testing, Therapeutic intervention Activity Recommendations Activity Level: Assistance Required Therapies: Physical Therapy, Occupational Therapy . Additional Information Patient informed of condition: Yes Advance Directives: No (UNKNOWN) DNR: No (PATIENT IS FULL CODE) Level of Care: Other ([facility]) Communicable Disease: Yes (C DIFF) Prognosis: Other (GUARDED) Oxygen at (LPM): 3 LITERS VIA NASAL CANNULA Instructions / Follow-Up Instructions / Follow-Up PLEASE REFER TO ACCOMPANYING DISCHARGE SUMMARY Current Hospital Diet Patient's current hospital diet: Low Sodium Diet (2gm Na) Discharge Diet Recommended Diet: Low Sodium Diet (2gm Na) Fluid Restriction: 1500 ml (6 cups) Procedures Procedures Performed: PARACENTESIS Pending Studies Studies pending at discharge: yes List of pending studies: PLEASE REFER TO ACCOMPANYING DISCHARGE SUMMARY. Physician Orders On Transfer Special Precautions: PLEASE REFER TO ACCOMPANYING DISCHARGE SUMMARY Medical Emergencies . Who to Call and When: Medical Emergencies: If at any time you feel your situation is an emergency, please call 911 immediately. . Non-Emergent Contact Non-Emergency issues call your: Primary Care Provider, [employer] Call Non-Emergent contact if: you have a fever, your pain is not controlled, your pain is worsening, wound has increased drainage, wound has increased redness, wound has increased pain, you have any medication questions . Past History Medical & Surgical History: (1) Depression (2) Hepatitis C, chronic (3) Cirrhosis (4) Orthostatic hypotension (5) Alcohol abuse (6) COPD, moderate (7) History of appendectomy (8) H/O exploratory laparotomy (9) History of tubal ligation . "Provider Documentation" section prepared by Germán Montague. . Core Measure Problem Core Measures: None
[2017-06-09] VITALS (9 sets, daily range): BP systolic 64–128; BP diastolic 32–72; PULSE 62–74; TEMP 36.4–37.4; O2SAT 92–98
[2017-06-09] MEDS: VANCOMYCIN HCL 125 MG/2.5ML SOLN PO SCH ×4 (00:05→18:43)
[2017-06-09] MEDS: RASPBERRY SYRUP 5 ML UDP PO SCH ×4 (00:05→18:43)
[2017-06-09] MEDS: ALBUMIN HUMAN 25% 12.5 GM/50 ML VIAL IV SCH ×3 (04:11→16:22)
[2017-06-09] MEDS: MIDODRINE 2.5 MG TAB PO SCH ×3 (06:19→18:43)
[2017-06-09] MEDS: LEVOTHYROXINE 25 MCG TAB PO SCH (06:19)
[2017-06-09] MEDS: HEPARIN SOD 5000 UNIT/0.5 ML CARP SQ SCH ×2 (06:21→13:32)
[2017-06-09] MEDS: LACTULOSE SYRUP 30 GM/45 ML UDP PO SCH (07:49)
[2017-06-09] MEDS: THIAMINE HCL 100 MG TAB PO SCH (07:50)
[2017-06-09] MEDS: CITALOPRAM 20 MG TAB PO SCH (07:50)
[2017-06-09] MEDS: LACTOBACILLUS ACIDOPHILUS (FLORANEX) TAB PO SCH (07:50)
[2017-06-09] MEDS: SODIUM BICARBONATE 650 MG TAB PO SCH ×2 (07:51→13:10)
[2017-06-09] MEDS: RIFAXIMIN TAB 550 MG TAB PO SCH (07:52)
[2017-06-09] MEDS: GABAPENTIN 100 MG CAP PO SCH ×2 (07:52→13:10)
--- NOTE | 2017-06-09 09:16 | Nephrology Progress Note ---
Nephrology Progress Note Date of Service: Jun 09, 2017. Subjective 62 yo female with n/v/diarrhea with bradley and cdiff and hypotenstion. was able to eat dinner last night although still with nausea. no more vomiting. continues to have diarrhea per patient. had diagnostic tap which was negative. Objective Date Time Temp Pulse Resp B/P (MAP) Pulse Ox O2 Delivery O2 Flow Rate FiO2 06/09/17 08:00 Nasal Cannula 3.0 06/09/17 07:54 36.4 74 20 94/48 (63) 92 Nasal Cannula 2.0 06/09/17 04:00 Nasal Cannula 2.0 06/09/17 03:06 37.2 71 16 104/52 (69) 95 06/09/17 00:07 82/52 (62) 06/08/17 23:59 Nasal Cannula 2.0 06/08/17 23:44 36.7 61 18 100/57 (71) 95 2.0 06/08/17 20:11 36.6 72 18 90/50 (63) 99 Nasal Cannula 2.0 06/08/17 20:05 71 80/50 (60) 06/08/17 20:00 Nasal Cannula 3.0 06/08/17 16:00 Nasal Cannula 3.0 06/08/17 16:00 36.7 68 18 88/50 (63) 96 06/08/17 13:28 88/40 (56) 06/08/17 12:00 Nasal Cannula 3.0 06/08/17 11:30 36.7 63 16 82/46 (58) 95 06/08/17 11:15 36.7 68 16 80/44 (56) 95 Physical Exam: General-aaox2 Eyes-no scleral icterus ENT-mmm Neck-supple Lungs-cta Heart-rrr Abdomen-bs+ /distended Extremities-no c/c/e Neuro-nonfocal Current Inpatient Medications Medications (Trade) Dose Ordered Sig/Shelby Route Start Time Stop Time Status Last Admin Dose Admin Heparin Sodium (Porcine) (Heparin Sq 5000 Unit/0.5ml) 5,000 unit Q8 SQ 06/07/17 22:00 07/07/17 21:59 06/09/17 06:21 5,000 UNIT Ondansetron HCl (Zofran Inj) 4 mg Q6H PRN IV 06/07/17 18:15 07/07/17 18:14 06/08/17 13:27 4 MG Citalopram Hydrobromide (celeXA TAB) 20 mg DAILY PO 06/08/17 09:00 07/08/17 08:59 06/09/17 07:50 20 MG Folic Acid (Folvite Tab) 1 mg QAM PO 06/08/17 09:00 07/08/17 08:59 06/09/17 07:51 1 MG Levothyroxine Sodium (Synthroid Tab) 25 mcg DAILYBB PO 06/08/17 09:00 07/08/17 08:59 06/09/17 06:19 25 MCG Rifaximin (Xifaxan Tab) 550 mg BID PO 06/07/17 21:00 07/07/17 20:59 06/09/17 07:52 550 MG Sodium Bicarbonate (Sodium Bicarbonate Tab) 650 mg TID PO 06/07/17 21:00 07/07/17 20:59 06/09/17 07:51 650 MG Lactobacillus Acidophilus (Floranex Tab) 1 tab DAILY PO 06/08/17 09:00 07/08/17 08:59 06/09/17 07:50 1 TAB Thiamine HCl (Vitamin B-1 Tab) 100 mg QAM PO 06/08/17 09:00 07/08/17 08:59 06/09/17 07:50 100 MG Albumin Human (Albumin 25%) 12.5 gm Q6H IV 06/07/17 22:00 06/10/17 21:59 06/09/17 04:11 12.5 GM Gabapentin (Neurontin Cap) 200 mg TID PO 06/08/17 09:00 07/07/17 20:59 06/09/17 07:52 200 MG Lactulose (Chronulac Syrup) 30 gm TID PO 06/08/17 09:00 07/08/17 08:59 06/09/17 07:49 30 GM Midodrine (Proamatine Tab) 10 mg TID@0700,1300,1800 PO 06/08/17 13:00 07/07/17 20:59 06/09/17 06:19 10 MG Acetaminophen (Tylenol Tab) 325 mg Q6H PRN PO 06/08/17 02:00 07/07/17 18:14 Tramadol HCl (Ultram Tab) 25 mg Q6H PRN PO 06/08/17 02:00 07/07/17 19:29 Lorazepam (Ativan Inj) 0.25 mg Q4H PRN IV 06/08/17 02:30 07/08/17 02:29 Vancomycin HCl (Vancomycin Oral Soln) 125 mg Q6H PO 06/08/17 06:45 06/22/17 06:44 06/09/17 06:19 125 MG Raspberry (Raspberry Syrup 5ml Cup) 5 ml Q6H PO 06/08/17 06:45 06/22/17 06:44 06/09/17 06:19 5 ML Last 24 Hours Test 06/08/17 15:00 06/09/17 09:05 Peritoneal Fluid Color YELLOW Peritoneal Fluid Appearance CLEAR Peritoneal Fluid WBC 153 /uL Peritoneal Fluid RBC < 3000 /uL Peritoneal Fld Mononuclear WBCs (%) 94.2 % Peritoneal Fld Polynuclear WBCs (%) 5.8 % Peritoneal Fluid Total Protein 2.3 g/dl Peritoneal Fluid Albumin 1.2 g/dl Peritoneal Fluid Glucose 82 mg/dl Date/Time Source Procedure Growth Status 06/08/17 15:00 Ascities Fluid Acid Fast Stain Pending Received 06/08/17 15:00 Ascities Fluid Mycobacterial Culture Pending Received 06/08/17 15:00 Ascities Fluid Gram Stain - Final Resulted 06/08/17 15:00 Ascities Fluid Bacterial Culture Pending Resulted Assessment & Plan BRADLEY-oliguric however unclear if collection is accurate-on albumin. bp has improved. labs are pending for today. would like to see a urine sodium level. for now, continue current therapies/albumin. hopefully creatinine continues to slowly improve. did not change significantly from 2.71 to 2.6. on midodrine. holding on octreotide for now. continue volume resuscitation with albumin.
--- NOTE | 2017-06-09 09:55 | Gastroenterology Progress Note ---
Progress Note Date of Service: Jun 09, 2017 Subjective Pt evaluation today including: conversation w/ patient, physical exam, chart review, lab review Pt was seen and evaluated, chart reviewed. No acute events overnight. Pt is to be transferred to [facility] this AM, awaiting bed. Had paracentesis w/ 5L off. No evidence of SBP. Notes she feels slightly better than she felt yesterday. She feels as if stools are less often. Lactulose on hold given c.diff infection. No abd pain since having paracentesis. Can have periods of lightheadedness and dizziness. No fever, chills. No CP, SOB. No s/s of GI blood loss. Morning labs pending. Random urine NA yet to be obtained. Diagnosis: suspected ETOH cirrhosis, sober February 13 Decompensations Ascites: yes, frequent paracentesis despite lasix 60/spironolactone 100 HE: maintained on lactulose Varices: none Screenings MELD: 20 Varices: UTD HCC: UTD Immunization: status unknown Peritoneal Fluid 06/08/17: Peritoneal WBC 153 Paracentesis 06/08/17: 5.4L removed CT ABD/Pelvis 06/07/17: Cirrhosis with manifestations of portal hypertension including large volume abdominal and pelvic ascites and collateral formation. No bowel obstruction. Subpleural right lower lobe opacity which favors atelectasis. Hyperdense material within the gallbladder which favors stones. Sludge could appear similar. No evidence for acute cholecystitis. Chest XR 06/07/17: Chronic basilar atelectatic change. No acute process Review of Systems Constitutional: + weakness, No fever, No chills Respiratory: No cough Cardiac: No chest pain Abdomen: + nausea, + diarrhea, No pain, No constipation, No GI bleeding Medications Current Inpatient Medications Medications (Trade) Dose Ordered Sig/Shelby Route Start Time Stop Time Status Last Admin Dose Admin Heparin Sodium (Porcine) (Heparin Sq 5000 Unit/0.5ml) 5,000 unit Q8 SQ 06/07/17 22:00 07/07/17 21:59 06/09/17 06:21 5,000 UNIT Ondansetron HCl (Zofran Inj) 4 mg Q6H PRN IV 06/07/17 18:15 07/07/17 18:14 06/08/17 13:27 4 MG Citalopram Hydrobromide (celeXA TAB) 20 mg DAILY PO 06/08/17 09:00 07/08/17 08:59 06/09/17 07:50 20 MG Folic Acid (Folvite Tab) 1 mg QAM PO 06/08/17 09:00 07/08/17 08:59 06/09/17 07:51 1 MG Levothyroxine Sodium (Synthroid Tab) 25 mcg DAILYBB PO 06/08/17 09:00 07/08/17 08:59 06/09/17 06:19 25 MCG Rifaximin (Xifaxan Tab) 550 mg BID PO 06/07/17 21:00 07/07/17 20:59 06/09/17 07:52 550 MG Sodium Bicarbonate (Sodium Bicarbonate Tab) 650 mg TID PO 06/07/17 21:00 07/07/17 20:59 06/09/17 07:51 650 MG Lactobacillus Acidophilus (Floranex Tab) 1 tab DAILY PO 06/08/17 09:00 07/08/17 08:59 06/09/17 07:50 1 TAB Thiamine HCl (Vitamin B-1 Tab) 100 mg QAM PO 06/08/17 09:00 07/08/17 08:59 06/09/17 07:50 100 MG Albumin Human (Albumin 25%) 12.5 gm Q6H IV 06/07/17 22:00 06/10/17 21:59 06/09/17 04:11 12.5 GM Gabapentin (Neurontin Cap) 200 mg TID PO 06/08/17 09:00 07/07/17 20:59 06/09/17 07:52 200 MG Lactulose (Chronulac Syrup) 30 gm TID PO 06/08/17 09:00 07/08/17 08:59 06/09/17 07:49 30 GM Midodrine (Proamatine Tab) 10 mg TID@0700,1300,1800 PO 06/08/17 13:00 07/07/17 20:59 06/09/17 06:19 10 MG Acetaminophen (Tylenol Tab) 325 mg Q6H PRN PO 06/08/17 02:00 07/07/17 18:14 Tramadol HCl (Ultram Tab) 25 mg Q6H PRN PO 06/08/17 02:00 07/07/17 19:29 Lorazepam (Ativan Inj) 0.25 mg Q4H PRN IV 06/08/17 02:30 07/08/17 02:29 Vancomycin HCl (Vancomycin Oral Soln) 125 mg Q6H PO 06/08/17 06:45 06/22/17 06:44 06/09/17 06:19 125 MG Raspberry (Raspberry Syrup 5ml Cup) 5 ml Q6H PO 06/08/17 06:45 06/22/17 06:44 06/09/17 06:19 5 ML Objective Vital Signs Date Time Temp Pulse Resp B/P (MAP) Pulse Ox O2 Delivery O2 Flow Rate FiO2 06/09/17 08:00 Nasal Cannula 3.0 06/09/17 07:54 36.4 74 20 94/48 (63) 92 Nasal Cannula 2.0 06/09/17 04:00 Nasal Cannula 2.0 06/09/17 03:06 37.2 71 16 104/52 (69) 95 06/09/17 00:07 82/52 (62) 06/08/17 23:59 Nasal Cannula 2.0 06/08/17 23:44 36.7 61 18 100/57 (71) 95 2.0 06/08/17 20:11 36.6 72 18 90/50 (63) 99 Nasal Cannula 2.0 06/08/17 20:05 71 80/50 (60) 06/08/17 20:00 Nasal Cannula 3.0 06/08/17 16:00 Nasal Cannula 3.0 06/08/17 16:00 36.7 68 18 88/50 (63) 96 06/08/17 13:28 88/40 (56) 06/08/17 12:00 Nasal Cannula 3.0 06/08/17 11:30 36.7 63 16 82/46 (58) 95 06/08/17 11:15 36.7 68 16 80/44 (56) 95 Physical Exam General Appearance: no apparent distress, + thin, + pertinent finding ( chronically ill appearing) Eyes: PERRL ENT: hearing grossly normal Neck: supple Respiratory/Chest: lungs clear, normal breath sounds Cardiovascular: regular rate, rhythm Abdomen: normal bowel sounds, non tender, soft, no organomegaly Neurologic/Psych: alert, normal mood/affect, oriented x 3 (she is oriented x 3 on exam today, but has moments of confusion) Skin: normal color Laboratory Results Last 24 Hours Test 06/08/17 15:00 06/09/17 09:05 Peritoneal Fluid Color YELLOW Peritoneal Fluid Appearance CLEAR Peritoneal Fluid WBC 153 /uL Peritoneal Fluid RBC < 3000 /uL Peritoneal Fld Mononuclear WBCs (%) 94.2 % Peritoneal Fld Polynuclear WBCs (%) 5.8 % Peritoneal Fluid Total Protein 2.3 g/dl Peritoneal Fluid Albumin 1.2 g/dl Peritoneal Fluid Glucose 82 mg/dl Assessment and Plan Patient is a 62 year old female w/ ETOH cirrhosis w/ gross ascites who was sent to ED by home health nurse who noted persisted symptomatic hypotension following inability to perform OP paracentesis due to hypotension, has been having nausea, vomiting and worsening diarrhea of recent, + for c.diff. ACTUARIAL INTERN on admission 2.7. Pt is s/p diagnostic and therapeutic paracentesis w/ nearly 6L removed, no evidence of SBP. Is on Vancomycin for c.diff, morning labs pending. - C.diff - Vancomycin 125 QID x 14 days - Hold lactulose for now - Hold Xifaxan for now - Avoid unnecessary ABX - BRADLEY - Hold diuretics - Random urine NA to rule out HRS - Appreciate nephrology input - Cirrhosis Management - Diagnostic and therapeutic paracentesis - No evidence of SBP - Resume diuretics once kidney function is back to baseline - Albumin 25% 12.5 q6h - Outpatient TIPS referral - Midodrine 10 mg TID - Low NA diet, less than 2g - Less than 2g APAP daily GI will follow. Please call with any questions, concerns, acute changes. I saw and evaluated the patient. Given her continued problems with renal insufficiency and need for repeated paracenteses she is been referred to [facility] for expert opinion with regard to long-term management of her liver disease. Given her comorbid conditions I suspect she is not likely candidate for liver transplantation. Furthermore, given the renal insufficiency she will not likely receive a TIPS but it would be nice to obtain their opinion. Please call with any questions or concerns during the remainder of the hospital admission
[2017-06-09 10:00] LABS: CALCIUM 8.4 mg/dl (8.5-10.1); CREATININE 2.59 mg/dl (0.60-1.20); POTASSIUM 5.2 mmol/L (3.5-5.1)
[2017-06-09] MEDS ORDERED: SODIUM POLYST. SULF SUSP 15G/60ML PO STA (18:44)
--- NOTE | 2017-06-09 18:58 | Progress Note ---
Medicine Progress Note Date & Time of Visit: Jun 09, 2017 at 18:49. Subjective seen resting in bed, alert, oriented x 3, not in distress states she feels somewhat improved today denies abdominal pain, dyspnea had 2 loose BMs today no nausea, tolerating diet denies other symptoms Objective Last 8 Hrs Date Time Temp Pulse Resp B/P (MAP) Pulse Ox O2 Delivery O2 Flow Rate FiO2 06/09/17 18:30 37.4 68 16 98 Nasal Cannula 06/09/17 16:00 Nasal Cannula 3.0 06/09/17 15:36 37.4 68 16 98/62 (74) 98 Nasal Cannula 2.0 06/09/17 13:26 128/72 (90) 06/09/17 12:00 Nasal Cannula 3.0 06/09/17 11:32 36.5 68 20 71/36 (48) 92 Nasal Cannula 2.0 64/32 (43) 06/09/17 11:06 36.4 62 16 98/48 (65) 96 Nasal Cannula 3.0 Physical Exam: General- oriented x 2, not in distress, speaks in sentences with no effort Eyes- anicteric Neck- no JVD Lungs- clear breath sounds bilaterally Heart- regular rhythm; no murmur, normal rate Abdomen- mildly distended abdomen, non tender Extremities- no pretibial edema, no calf tenderness Neuro- alert, oriented x 3; no gross focal deficits Skin- warm & dry Laboratory Results: Last 24 Hours Test 06/09/17 09:05 06/09/17 13:12 06/09/17 17:24 Sodium Level 136 mmol/L Potassium Level 5.2 mmol/L 5.3 mmol/L 5.6 mmol/L Chloride Level 109 mmol/L Carbon Dioxide Level 19 mmol/L Anion Gap 8.0 mmol/L Blood Urea Nitrogen 19 mg/dl Creatinine 2.59 mg/dl Est Creatinine Clear Calc Drug Dose 17.5 ml/min Estimated GFR () 22.3 Estimated GFR (Non- 19.2 BUN/Creatinine Ratio 7.3 Random Glucose 94 mg/dl Calcium Level 8.4 mg/dl Assessment & Plan LIVER CIRRHOSIS WITH REFRACTORY ASCITES, IN THE SETTING OF HYPOTENSION, ACUTE RENAL FAILURE - patient undergoes weekly Paracentesis as outpatient has been evaluated by Dr. Leonel Mendez, Hepatology, [facility] last 05/23/17 for TIPS - presented to the ER as paracentesis could not be performed as outpatient due to hypotension- systolic 70s upon arrival found to have acute renal failure crea 2.7 from baseline <1 - Nephrology consulted lasix and aldactone held due to acute renal failure and hypotension - s/p Paracentesis, draining 5L, 06/08/17 Albumin q6h Midodrine increased to 10mg TID - GI recommendations noted, recommend transfer to [facility] for Hepatology Care [facility] contacted, patient was kindly accepted by Dr. Pryor - Lactulose held for C diff colitis Rifaximin continued 06/09/17: patient's Bp improved 98-128 systolic awaiting transfer to [facility] HYPOTENSION - secondary to volume depletion secondary to Diarrhea underlying Volume Depletion secondary to Ascites - gentle IV fluids PRN hold diuretics for now Albumin q6h, Midodrine increased 06/09/17: patient's Bp improved 98-128 systolic awaiting transfer to [facility] ACUTE RENAL FAILURE - likely Pre Renal secondary to GI losses from C diff Diarrhea r/o Hepatorenal syndrome - Dr. Blandon on board - gentle IV fluids PRN hold diuretics for now Albumin q6h, Midodrine increased - crea 2.7 to 2.59 monitor MILD HYPERKALEMIA - 06/09 9am 5.2 1pm 5.3 530pm 5.6 - no ekg changes in tele - avoiding Dextrose + insulin as patient developed hypoglycemia the other day with this approach will give 1 dose of Kayexalate - MONITOR POTASSIUM LEVEL CLOSELY, REPEAT THIS EVENING 06/09/17 ANEMIA - chronic, due to underlying cirrhosis - no signs of bleeding - baseline ~ 8-9.5; DVT PROPHYLAXIS - SCDs DISPO transfer to [facility] Total time spent on discharge = 45 minutes This includes examination of the patient, discharge planning, medication reconciliation, and communication with other providers. Consultants: GASTROENTEROLOGY, NEPHROLOGY Procedures: PARACENTESIS ABDOMEN W/IMAGING CLINICAL HISTORY: 62 years-old Female with ascites. COMPARISON: CT abdomen and pelvis 06/07/2017 PROCEDURE: The procedure was explained to the patient in the care including the benefits and possible risks/complications. The patient gave verbal understanding and written consent was obtained. A time-out was performed prior to the start of the procedure. The patient was placed on the ultrasound table in the supine position. Using ultrasound guidance, an appropriate procedure site in the left lower abdomen was marked. This area was then prepped and draped in the usual sterile fashion. Local anesthesia was achieved within 1% lidocaine. An 8-Syriac centesis catheter was then inserted. Approximately 5.4 liters of clear, yellowish fluid was removed and sent to the lab for analysis. The catheter was removed and external pressure was held to achieve hemostasis. A sterile dressing was applied to the procedure site. The patient tolerated the procedure well without immediate complications. IMPRESSION: Successful ultrasound-guided paracentesis with removal of 5.[address] fluid [address] OF THE ABDOMEN AND PELVIS WITHOUT CONTRAST CLINICAL HISTORY: Abdominal pain. Possible obstruction. COMPARISON STUDY: CT of the abdomen and pelvis May 03, 2017. TECHNIQUE: Axial images of the abdomen and pelvis were obtained without IV contrast. Images were reviewed in the axial, sagittal, and coronal planes. A dose lowering technique was utilized adhering to the principles of ALARA. FINDINGS: Subpleural right lower lobe opacity favors atelectasis. There is no pneumatosis, free air or portal venous gas. Evaluation of the abdomen and pelvis is suboptimal on this unenhanced exam. Hyperdense material within the collecting systems, ureters and bladder is from recent contrast-enhanced CT. The liver is shrunken with enlargement of the lateral segment with fissural widening. The findings are indicative of cirrhosis. Sensitivity for detection of hepatic lesions is diminished on this unenhanced exam but none are identified. There is hyperdense material within the gallbladder which is contracted. The size of the spleen is normal. Adrenal glands, kidneys and pancreas are unremarkable with exception of a few calcifications within the pancreatic head. A large volume of abdominal and pelvic ascites is noted. There is no evidence for a bowel obstruction. No suspicious osseous lesion is present. No lymphadenopathy is identified on this unenhanced exam. There is extensive atherosclerotic plaque of the abdominal aorta which is normal in caliber. Small collaterals are noted consistent with portal hypertension. IMPRESSION: 1. Cirrhosis with manifestations of portal hypertension including large volume abdominal and pelvic ascites and collateral formation. 2. No bowel obstruction. 3. Subpleural right lower lobe opacity which favors atelectasis. 4. Hyperdense material within the gallbladder which favors stones. Sludge could appear similar. No evidence for acute cholecystitis. Current Inpatient Medications: Current Inpatient Medications Medications (Trade) Dose Ordered Sig/Shelby Route Start Time Stop Time Status Last Admin Dose Admin Heparin Sodium (Porcine) (Heparin Sq 5000 Unit/0.5ml) 5,000 unit Q8 SQ 06/07/17 22:00 07/07/17 21:59 06/09/17 13:32 5,000 UNIT Ondansetron HCl (Zofran Inj) 4 mg Q6H PRN IV 06/07/17 18:15 07/07/17 18:14 06/08/17 13:27 4 MG Citalopram Hydrobromide (celeXA TAB) 20 mg DAILY PO 06/08/17 09:00 07/08/17 08:59 06/09/17 07:50 20 MG Folic Acid (Folvite Tab) 1 mg QAM PO 06/08/17 09:00 07/08/17 08:59 06/09/17 07:51 1 MG Levothyroxine Sodium (Synthroid Tab) 25 mcg DAILYBB PO 06/08/17 09:00 07/08/17 08:59 06/09/17 06:19 25 MCG Rifaximin (Xifaxan Tab) 550 mg BID PO 06/07/17 21:00 07/07/17 20:59 06/09/17 07:52 550 MG Sodium Bicarbonate (Sodium Bicarbonate Tab) 650 mg TID PO 06/07/17 21:00 07/07/17 20:59 06/09/17 13:10 650 MG Lactobacillus Acidophilus (Floranex Tab) 1 tab DAILY PO 06/08/17 09:00 07/08/17 08:59 06/09/17 07:50 1 TAB Thiamine HCl (Vitamin B-1 Tab) 100 mg QAM PO 06/08/17 09:00 07/08/17 08:59 06/09/17 07:50 100 MG Albumin Human (Albumin 25%) 12.5 gm Q6H IV 06/07/17 22:00 06/10/17 21:59 06/09/17 16:22 12.5 GM Gabapentin (Neurontin Cap) 200 mg TID PO 06/08/17 09:00 07/07/17 20:59 06/09/17 13:10 200 MG Lactulose (Chronulac Syrup) 30 gm TID PO 06/08/17 09:00 07/08/17 08:59 Future Hold 06/09/17 07:49 30 GM Midodrine (Proamatine Tab) 10 mg TID@0700,1300,1800 PO 06/08/17 13:00 07/07/17 20:59 06/09/17 18:43 10 MG Acetaminophen (Tylenol Tab) 325 mg Q6H PRN PO 06/08/17 02:00 07/07/17 18:14 Tramadol HCl (Ultram Tab) 25 mg Q6H PRN PO 06/08/17 02:00 07/07/17 19:29 Lorazepam (Ativan Inj) 0.25 mg Q4H PRN IV 06/08/17 02:30 07/08/17 02:29 Vancomycin HCl (Vancomycin Oral Soln) 125 mg Q6H PO 06/08/17 06:45 06/22/17 06:44 06/09/17 18:43 125 MG Raspberry (Raspberry Syrup 5ml Cup) 5 ml Q6H PO 06/08/17 06:45 06/22/17 06:44 06/09/17 18:43 5 ML Sodium Polystyrene Sulfonate (Kayexalate Susp) 15 gm NOW STAT PO 06/09/17 18:44 06/09/17 18:45 UNV
== END 2017-06-09 19:50 | disposition short-term general hospital (02) | DRG 432 ==
LOC: EDBD 16:07 → C.EDB 16:07 → C.2T 18:14 → ENRESERV 19:26
PROVIDERS: ADMIT Hospitalist; ATTEND Internal Medicine
PROC: 0W9G3ZZ Drainage of Peritoneal Cavity, Percutaneous Approach (ICD-10-PCS; principal; 2017-06-08)
DX: K70.31 Alcoholic cirrhosis of liver with ascites (principal); N17.0 Acute kidney failure with tubular necrosis; K76.7 Hepatorenal syndrome; A04.72 Enterocolitis due to Clostridium difficile, not specified as recurrent; I95.89 Other hypotension; K70.40 Alcoholic hepatic failure without coma; E87.5 Hyperkalemia; D63.8 Anemia in other chronic diseases classified elsewhere; J44.9 Chronic obstructive pulmonary disease, unspecified; B18.2 Chronic viral hepatitis C; F32.9 Major depressive disorder, single episode, unspecified; F17.200 Nicotine dependence, unspecified, uncomplicated; Z79.899 Other long term (current) drug therapy; Z87.898 Personal history of other specified conditions; Z81.8 Family history of other mental and behavioral disorders

== ENCOUNTER 2017-08-08 15:43 | Inpatient (IN) | payer OTHER ==
[~2017-08-08] VITALS: Ht 162.6 cm; Wt 62.1 kg
[2017-08-08] VITALS (25 sets, daily range): BP systolic 55–100; BP diastolic 28–78; PULSE 105–120; TEMP 36.1–37.6; O2SAT 89–98; BMI 21.2
[~2017-08-08 15:43] MED LIST changes: +FLV1 PO; -FOLI1TAB8 PO; +FRS/40 PO; -GABA-113 PO; +GABA-1219 PO; -LACT15SO PO; +LCTS240 PO; -LSX40 PO; +MIDAZOLAM HCL 5 MG/ML 2ML VIAL IV ONE; +MISCCAP80 PO; +NRN100 PO; +POTA-639 PO; -POTA20TA16 PO; +PRMT25 PO; +RIFA550T2 PO; +ULT50X PO; +VANC1SUS PO; -XFX550 PO; +[UNRECOGNIZED DRUG - CODE] IV
[2017-08-08] MEDS ORDERED: ONDANSETRON INJ 2 MG/ML 2 ML VIAL IM STA (15:48)
--- NOTE | 2017-08-08 15:52 | EMERGENCY ROOM VISIT NOTE ---
History First contact with patient: 15:40 Chief Complaint: SHORTNESS OF BREATH Stated Complaint: SOB, COPD History of Present Illness The patient is a 62 year old female who presents to the Emergency Room with complaints of shortness of breath. Hx obtained from records and EMS as patient was not responding much. EMS reports she was short of breath despite being on 2L nasal cannula, and her sats were in the 80's. They put her on an oxygen concentrator which did not help much. She improved en route when placed on CPAP. She has a history of Hep C, ETOH Cirrhosis (MELD 15), refractory ascites s/p TIPS placement on 06/17/17. Per outpatient records the patient has been on Cipro prophylaxis since having SBP on paracentesis last month, and had C Diff during last hospitalization. Currently the patient is short of breath, she denies any pain. She is short of breath when speaking but not saying much overall. Review of Systems ROS unable to be obtained due to patients respiratory failure. Past Medical/Surgical History Medical Problems: (1) Alcohol abuse (2) Cirrhosis (3) COPD, moderate (4) Depression (5) Hepatitis C, chronic (6) Orthostatic hypotension Surgical Problems: (1) H/O exploratory laparotomy (2) History of appendectomy (3) History of tubal ligation Family History FH: dementia FATHER Social History Smoking Status: Current Every Day Smoker (1/2 pack per day) Alcohol Use: none, heavy Drug Use: none Marital Status: in relationship Housing Status: lives with family Current/Historical Medications Scheduled Albumin, Human (Albumin Human), 12.5 GM IV Q6H Citalopram (Citalopram Hydrobromide), 20 MG PO DAILY Folic Acid (Folic Acid), 1 MG PO QAM Furosemide (Lasix), 40 MG PO QAM Gabapentin (Gabapentin), 300 MG PO TID Gabapentin (Gabapentin), 200 MG PO TID Home O2 Therapy (Oxygen), 3 LITERS NA UD Lactulose (Chronulac), 30 GM PO TID Levothyroxine Sodium (Levothyroxine Sodium), 25 MCG PO DAILY Midodrine (Midodrine HCl), 7.5 MG PO TID Midodrine (Midodrine HCl), 10 MG PO TID@0700,1300,1800 Potassium Ext Rel (Klor-Con), 20 MEQ PO DAILY Probiotic Product (Probiotic), 1 CAP PO DAILY Rifaximin (Xifaxan), 1 TAB PO BID Sodium Bicarbonate (Sodium Bicarbonate), 650 MG PO TID Spironolactone (Spironolactone), 100 MG PO DAILY Thiamine Mononitrate (Vitamin B1), 100 MG PO QAM Vancomycin HCl (Vancomycin HCl + Syrspend), 125 MG PO Q6H Scheduled PRN Albuterol Hfa (Ventolin Hfa), 2 PUFFS INH Q4H PRN for Wheezing Hyoscyamine Sulfate (Levsin), 0.125 MG PO ACHS PRN for Abdominal Pain/Bloating Ondansetron (Ondansetron HCl), 4 MG PO Q8 PRN for Nausea Tramadol HCl (Tramadol HCl), 50 MG PO Q6H PRN for Pain Tramadol HCl (Tramadol HCl), 25 MG PO Q6H PRN for Pain Allergies NKDA Physical Exam Vital Signs Date Time Temp Pulse Resp B/P (MAP) Pulse Ox O2 Delivery O2 Flow Rate FiO2 08/08/17 16:59 120 26 135/80 95 BiPAP 08/08/17 16:30 119 08/08/17 16:27 98 CPAP 08/08/17 16:13 120 98 30 08/08/17 16:00 Nasal Cannula 08/08/17 15:58 38.1 117 20 99/60 97 Nasal Cannula 3.0 Physical Exam GENERAL: Awake, alert, cachetic HENT: Normocephalic, atraumatic. Oropharynx unremarkable. EYES: Normal conjunctiva. Sclera non-icteric. NECK: Supple. No nuchal rigidity. FROM. No JVD. RESPIRATORY: Pursed lip breathing. Clear to auscultation. Good air entry bilaterally, no wheeze, crackles. CARDIAC: Regular rate, normal rhythm. Extremities warm and well perfused. Pulses equal. ABDOMEN: Well healed midline scar. Soft, non-distended. No tenderness to palpation. No rebound or guarding. No masses. RECTAL: Deferred. MUSCULOSKELETAL: Chest examination reveals no tenderness. The back is symmetrical on inspection without obvious abnormality. There is no CVA tenderness to palpation. No joint edema. LOWER EXTREMITIES: Calves are equal size bilaterally and non-tender. No edema. No discoloration. NEURO: Encephalopathic, unable to complete neuro exam. SKIN: No rash or jaundice noted. Medical Decision & Procedures Laboratory Results 08/08/17 16:00 Red Blood Count 2.77, Mean Corpuscular Volume 89.5, Mean Corpuscular Hemoglobin 28.5, Mean Corpuscular Hemoglobin Concent 31.9, Mean Platelet Volume 9.2, Neutrophils (%) (Auto) 88.6, Lymphocytes (%) (Auto) 2.7, Monocytes (%) (Auto) 7.9, Eosinophils (%) (Auto) 0.2, Basophils (%) (Auto) 0.3, Neutrophils # (Auto) 7.72, Lymphocytes # (Auto) 0.24, Monocytes # (Auto) 0.69, Eosinophils # (Auto) 0.02, Basophils # (Auto) 0.03 08/08/17 16:00 Test 08/08/17 15:59 08/08/17 16:00 08/08/17 16:21 08/08/17 16:26 Bedside Blood Gas pH (LAB) 7.39 (7.35-7.45) Bedside Blood Gas pCO2 (LAB) 27 mmHg (35-46) Bedside Blood Gas pO2 (LAB) 69 mmHg (80-95) Bedside Blood Gas HCO3 (LAB) 16 meq/L (19-24) Bedside Blood Gas Total CO2 17 mEq/l (24-31) Bedside Blood Gas Base Excess (LAB) -9.0 meq/L (-9-1.8) Bedside Blood Gas O2 Saturation 94.0 % (90-95) White Blood Count 8.73 K/uL (4.8-10.8) Red Blood Count 2.77 M/uL (4.2-5.4) Hemoglobin 7.9 g/dL (12.0-16.0) Hematocrit 24.8 % (37-47) Mean Corpuscular Volume 89.5 fL (80-100) Mean Corpuscular Hemoglobin 28.5 pg (25-34) Mean Corpuscular Hemoglobin Concent 31.9 g/dl (32-36) Platelet Count 204 K/uL (130-400) Mean Platelet Volume 9.2 fL (7.4-10.4) Neutrophils (%) (Auto) 88.6 % Lymphocytes (%) (Auto) 2.7 % Monocytes (%) (Auto) 7.9 % Eosinophils (%) (Auto) 0.2 % Basophils (%) (Auto) 0.3 % Neutrophils # (Auto) 7.72 K/uL (1.4-6.5) Lymphocytes # (Auto) 0.24 K/uL (1.2-3.4) Monocytes # (Auto) 0.69 K/uL (0.11-0.59) Eosinophils # (Auto) 0.02 K/uL (0-0.5) Basophils # (Auto) 0.03 K/uL (0-0.2) RDW Standard Deviation 62.2 fL (36.4-46.3) RDW Coefficient of Variation 18.8 % (11.5-14.5) Immature Granulocyte % (Auto) 0.3 % Immature Granulocyte # (Auto) 0.03 K/uL (0.00-0.02) Anisocytosis PRESENT Acanthocytes 1+ Schistocytes 1+ Estimated GFR () 80.0 Estimated GFR (Non- 69.0 BUN/Creatinine Ratio 10.5 (10-20) Calcium Level 8.9 mg/dl (8.5-10.1) Magnesium Level 1.6 mg/dl (1.8-2.4) Total Bilirubin 1.4 mg/dl (0.2-1) Aspartate Amino Transf (AST/SGOT) 23 U/L (15-37) Alanine Aminotransferase (ALT/SGPT) 16 U/L (12-78) Alkaline Phosphatase 84 U/L (45-117) Total Protein 7.5 gm/dl (6.4-8.2) Albumin 3.1 gm/dl (3.4-5.0) Globulin 4.4 gm/dl (2.5-4.0) Albumin/Globulin Ratio 0.7 (0.9-2) Bedside Lactic Acid Venous 2.71 mmol/L (0.90-1.70) Bedside Hemoglobin 7.8 g/dl (12.0-16.0) Bedside Hematocrit 23 % (37-47) Bedside Sodium 139 mEq/L (135-144) Bedside Potassium 4.3 mEq/L (3.3-5.0) Bedside Chloride 109 mEq/L (101-112) Bedside Total CO2 18 mEq/l (24-31) Anion Gap 17.0 mmol/L (16-25) Bedside Blood Urea Nitrogen 9 mg/dl (7-18) Bedside Creatinine 0.8 mg/dl (0.6-1.3) Bedside Glucose (other) 78 mg/dl (70-99) Bedside Ionized Calcium (Eliza) 1.25 mmol/l (1.12-1.32) Test 08/08/17 16:45 08/08/17 17:10 Ammonia 36.0 umol/L (11-32) Medications Administered Medications (Trade) Dose Ordered Sig/Shelby Route Start Time Stop Time Status Last Admin Dose Admin Lorazepam (Ativan Inj) 1 mg NOW STAT IM 08/08/17 16:03 08/08/17 16:04 DC 08/08/17 16:10 1 MG Sodium Chloride 1,000 ml @ 999 mls/hr Q1H1M STAT IV 08/08/17 16:56 08/08/17 17:56 08/08/17 17:02 999 MLS/HR ECG Per My Interpretation Indication: altered mental status Rate (beats per minute): 125 Rhythm: sinus rhythm Findings: no acute ischemic change Change: no significant change ED Course 15:40: I evaluated the patient in room C3. A complete history and physical examination were performed. Dr. Gatica also evaluated the patient. 15:48: I ordered a CBC, CMP, PT/INR, Ammonia level. I obtained her outpatient records from [facility] and reviewed her most recent GI visit note. The patient was also nauseated and so I gave her 4mg IM Zofran, and 1mg IM Ativan. 16:06: The patient was noted to be febrile - I ordered blood cultures as well as a lactic acid. We also ordered 1L of NSS. 16:45: I re-evaluated the patient. She was sleeping comfortably. 17:25: [facility]. They will accept the patient. Medical Decision 62 yo F with known cirrhosis, hep C, s/p TIPS procedure, who presents with respiratory failure. Differential includes: sepsis, electrolyte abnormality, dehydration, medication overdose. She was found to be hypoxic despite her baseline level of oxygen when at home. She has improved with use of BiPAP. She was found to be febrile and tachycardic with an elevated lactic acid. She was given a fluid bolus and antibiotics, including Cefepime and Vancomycin. On re- evaluation she was found to be resting comfortably and her oxygen saturations improved to 95% with BiPAP. She was given a dose of Solu-Medrol IV as well. [facility] and [facility]. Impression Primary Impression: Respiratory failure Additional Impressions: COPD (chronic obstructive pulmonary disease) Sepsis, unspecified organism Departure Information Dispostion Being Evaluated By Hospitalist Referrals Jeremy Maki M.D. (PCP) Patient Instructions [facility] Problem Qualifiers
--- NOTE | 2017-08-08 15:58 | EMERGENCY ROOM VISIT NOTE ---
ED Visit Note First contact with patient: 15:40 Resident Physician Supervision Note: Dr. Mamie Johnston was resident physician during care of patient. I separately evaluated patient and did history and exam. I discussed the case with the resident and generally agree with the findings and plan. 62 yr old female arrives for evaluation of acute worsening SHOB. Long history of COPD and alcoholic cirrhosis with multiple previous admissions for both and recent TIPS procedure last month. Worsening SHOB today and called EMS. EMS note O2s in low 80s on NRB and patient near-syncopal and too weak to walk with associated confusion. Improved drastically on CPAP en route. No other meds given. On arrival she vomited a small amount. Moving some air without wheezing but she is using accessory muscles and clearly quite SHOB. She is moderately encephalopathic but maintaining airway on arrival. No TTP over abdomen which is moderately distended with fluid wave. No edema in legs, in fact she looks dehydrated. Noted to be tachycardic and febrile as well. Placed on BiPAP and looking much improved and tolerating this. Still mild tachy. CXR without clear infiltrate though is noting some congestion already. Lactic acid up may all be liver but with fever/tachy must assume infectious. Abdo soft and while confused she does not look meningitic at this time, nor would I think LP would be safe in this patient as it is. With recent hospitalization will need broad spectrum abx and given how dry she looks will need some hydration. Given IV fluids judiciously. After several hours patient started decompensating further from respiratory status. She is becoming hypoxic , lungs are now getting wet and tachy is worsening along with worsening confusion. Suspect this is congestive failure or just blossoming of likely underlying pneumonia. Regardless, requires intubation at this time. Unable to get good story from patient on code status but review of chart states Full and no family here. Intubated without difficulty though I would note there are multiple ulcerations in oropharynx of uncertain etiology which has some bleeding during intubation without complication. There was clearly frothy discharge from trachea during intubation along with some mucous on right cord. Sating well post intubation and HR improving. Procedure: Endotracheal Intubation Indication: Respiratory failure The patient was being bagged by respiratory with BVM. Suction, airway equipment , RSI drugs, respiratory equipment, and appropriate personnel were prepared prior to the initiation of the procedure. A time out was taken. Induction was performed with Etomidate 20mg IV, Succinylcholine 100mg IV. After observing the clinical benefit of the medications, the airway was easily visualized utilizing a Glidescope 4 blade. A 7.5cm size ETT tube was placed atraumatically to 23 cm using standard technique. The cuff inflated without signs of malfunction. There were bilateral breath sounds, positive colormetric change, no gastric sounds, a good capnography waveform, and post procedure pulse oximetry was 98%. Post intubation sedation and paralysis was deferred to ICU where she was transported directly post intubation. There were no complications. Diagnosis: Acute Respiratory Failure Sepsis Critical Care: I have personally spent greater than 90 minutes of critical care time in the direct management of this patient. This was a life/limb threatening event. This includes time spent evaluating patient, direct bedside care, chart review, placing orders, interpretation of diagnostic studies, discussion with consultants, patient, and family members, as well as other required patient management activities. This 90 minutes is in excess of all separately billable procedures. Documented By: Shawn Gatica MD
[2017-08-08] MEDS ORDERED: LORAZEPAM 2 MG/ML 1 ML VIAL IM STA (16:03)
[2017-08-08 16:16] LABS: ISTAT POTASSIUM 4.2 mEq/L (3.3-5.0); ISTAT SODIUM 140 mEq/L (135-144)
[2017-08-08 16:31] LABS: BASO % 0.3 %; BASO ABS # 0.03 K/uL (0-0.2); EOS % 0.2 %; EOS ABS # 0.02 K/uL (0-0.5); HEMATOCRIT 24.8 % (37-47); HEMOGLOBIN 7.9 g/dL (12.0-16.0); IG# 0.03 K/uL (0.00-0.02); LYMPH % 2.7 %; LYMPH ABS # 0.24 K/uL (1.2-3.4); MEAN CELL VOLUME 89.5 fL (80-100); MEAN CORPUSCULAR HEMOGLOBIN 28.5 pg (25-34); MEAN CORPUSCULAR HGB CONC 31.9 g/dl (32-36); MEAN PLATELET VOLUME 9.2 fL (7.4-10.4); MONO % 7.9 %; MONO ABS # 0.69 K/uL (0.11-0.59); NEUT % 88.6 %; NEUT ABS # 7.72 K/uL (1.4-6.5); PLATELET COUNT 204 K/uL (130-400); RED CELL DISTRIBUTION WIDTH CV 18.8 % (11.5-14.5); RED CELL DISTRIBUTION WIDTH SD 62.2 fL (36.4-46.3); WHITE BLOOD COUNT 8.73 K/uL (4.8-10.8)
[2017-08-08 16:37] LABS: ISTAT CREATININE 0.8 mg/dl (0.6-1.3); ISTAT IONIZED CALCIUM 1.25 mmol/l (1.12-1.32); ISTAT POTASSIUM 4.3 mEq/L (3.3-5.0)
--- NOTE | 2017-08-08 16:37 | DIAGNOSTIC IMAGING REPORT ---
CHEST ONE VIEW PORTABLE CLINICAL HISTORY: SHORTNESS OF BREATH COMPARISON STUDY: 06/07/2017 FINDINGS: The heart appears enlarged. There is elevation of the interstitium. There are small bilateral pleural effusions. There is no lobar consolidation.[ IMPRESSION: Interval development of congestive failure/fluid overload with small bilateral pleural effusions Electronically signed by: Dalton Hassan M.D. 08/08/2017 4:36 PM Dictated Date/Time: 08/08/2017 4:35 PM
[2017-08-08] MEDS ORDERED: CEFEPIME IV 2,000 MG in DEXTROSE 5% 100ML 100 ML IV STA (16:38)
[2017-08-08] MEDS ORDERED: VANCOMYCIN IV 1,000 MG in SODIUM CHLORIDE 0.9% 250ML 250 ML IV STA (16:38)
[2017-08-08] MEDS ORDERED: VANCOMYCIN 1GM ED/ASU OMNICELL IV ONE (16:38)
[2017-08-08] MEDS ORDERED: VANCOMYCIN CONSULT ACTIVE PRN ×2 (16:45→18:00)
[2017-08-08] MEDS ORDERED: SODIUM CHLORIDE 0.9% 1000ML 1,000 ML IV STA (16:56)
[2017-08-08 16:59] LABS: ALBUMIN 3.1 gm/dl (3.4-5.0); ALT/SGPT 16 U/L (12-78); AST/SGOT 23 U/L (15-37); BLOOD UREA NITROGEN 9 mg/dl (7-18); CALCIUM 8.9 mg/dl (8.5-10.1); CARBON DIOXIDE 18 mmol/L (21-32); GLUCOSE 77 mg/dl (70-99); POTASSIUM 4.1 mmol/L (3.5-5.1); SODIUM 136 mmol/L (136-145)
[2017-08-08 17:01] LABS: ALKALINE PHOSPHATASE 84 U/L (45-117); TOTAL PROTEIN 7.5 gm/dl (6.4-8.2)
[2017-08-08] MEDS ORDERED: METHYLPREDNISOLONE 125 MG VIAL IV STA (17:16)
[2017-08-08] MEDS ORDERED: CEFEPIME IV 2,000 MG in SYRINGE 7.5 ML IV ONE (17:45)
[2017-08-08 18:00] LABS: INR 1.2 (0.9-1.1); PTT PATIENT 29.6 SECONDS (21.0-31.0)
[2017-08-08] MEDS ORDERED: ONDANSETRON INJ 2 MG/ML 2 ML VIAL IV PRN (18:00)
[2017-08-08] MEDS ORDERED: PIPERACILL/TAZOBAC CONSULT ACTIVE PRN (18:00)
[2017-08-08] MEDS ORDERED: CIPR-255 PO (18:07)
[2017-08-08] MEDS ORDERED: PATIENT'S HEIGHT AND/OR WEIGHT NEEDED SCH (18:15)
[2017-08-08] MEDS ORDERED: HYOSCYAMINE SULFATE 0.125 MG SL TAB PO PRN (18:15)
[2017-08-08] MEDS ORDERED: ALBUT/IPRATROP 3MG/0.5MG NEB 3 ML VIAL INH STA (18:39)
[2017-08-08] MEDS ORDERED: ETOMIDATE 2 MG/ML 20 ML VIAL IV ONE ×2 (18:54→19:00)
[2017-08-08] MEDS ORDERED: SUCCINYLCHOLINE CHLORIDE 20 MG/ML 10 ML VIAL IV ONE ×2 (18:55→19:00)
--- NOTE | 2017-08-08 19:03 | DIAGNOSTIC IMAGING REPORT ---
CHEST ONE VIEW PORTABLE CLINICAL HISTORY: Worsening shortness of breath. COMPARISON STUDY: 08/08/2017 FINDINGS: The heart is at the upper limits of normal in size. There is no focal pulmonary consolidation. There is mild interstitial edema. There are trace pleural effusions.[ IMPRESSION: Minimal worsening in the congestive failure/fluid overload pattern with trace bilateral pleural effusions Electronically signed by: Dalton Hassan M.D. 08/08/2017 7:02 PM Dictated Date/Time: 08/08/2017 7:01 PM
[2017-08-08] MEDS ORDERED: FUROSEMIDE INJ 40 MG in SYRINGE 0 ML IV ONE (20:00)
[2017-08-08] MEDS ORDERED: PIPERACILL/TAZOBAC IV 3.375 GM in DEXTROSE 5% 100ML IV ONE (20:00)
[2017-08-08] MEDS ORDERED: MAGNESIUM SULFATE 1GM / D5W 1 GM in PREMIXED IN D5W 100 ML IV ONE (20:00)
--- NOTE | 2017-08-08 20:23 | History and Physical ---
History & Physical Date & Time of Service: Aug 08, 2017 at 19:13 Chief Complaint: Sob, Copd Primary Care Physician: Jeremy Maki M.D. History of Present Illness Source: clinic records, hospital records This is a 62 year old female with a PMH of alcoholic liver cirrhosis and recurrent ascites, paracentesis - s/p TIPS procedure in June 2017, COPD, ongoing tobacco abuse - presents with worsening shortness of breath. EMS called and she was placed on CPAP en route - with better oxygen saturation. Continued to be short of breath during my exam; Bipap was placed, but patient was desaturating. She was confused during my exam as well and only answered questions intermittently. CXR performed showing worsening congestion. [employer] consulted and patient was intubated in the ER prior to being taken to the ICU. Past Medical/Surgical History Medical Problems: (1) BRADLEY (acute kidney injury) (2) BRADLEY (acute kidney injury) (3) Alcohol abuse (4) Ambulatory dysfunction (5) Ascites (6) Chest wall contusion (7) Chest wall pain (8) Cirrhosis (9) COPD, moderate (10) Depression (11) Diffuse abdominal pain (12) Elevated bilirubin (13) Hepatitis C, chronic (14) Hyperammonemia (15) Hypomagnesemia (16) Hypotension (17) Orthostatic hypotension (18) Paresthesia (19) Partial small bowel obstruction (20) Symptomatic anemia Surgical Problems: (1) H/O exploratory laparotomy (2) History of appendectomy (3) History of tubal ligation Family History FH: dementia FATHER Social History Smoking Status: Current Every Day Smoker (1/2 pack per day) Drug Use: none Marital Status: in relationship Housing status: lives with significant other Immunizations History of Influenza Vaccine: Yes Influenza Vaccine Date: Feb 13, 2017 History of Tetanus Vaccine?: Yes Tetanus Immunization Date: May 30, 2007 History of Pneumococcal: Yes Pneumococcal Date: Nov 23, 2010 Allergies Coded Allergies: No Known Allergies (Unverified , 08/08/17) Home Medications Scheduled Ciprofloxacin Hcl (Cipro), 500 MG PO DAILY Citalopram (Citalopram Hydrobromide), 20 MG PO DAILY Folic Acid (Folic Acid), 1 MG PO QAM Gabapentin (Gabapentin), 300 MG PO TID Home O2 Therapy (Oxygen), 3 LITERS NA UD Lactulose (Chronulac), 30 GM PO BID Levothyroxine Sodium (Levothyroxine Sodium), 25 MCG PO DAILY Midodrine (Midodrine HCl), 10 MG PO TID@0700,1300,1800 Probiotic Product (Probiotic), 1 CAP PO DAILY Rifaximin (Xifaxan), 1 TAB PO BID Sodium Bicarbonate (Sodium Bicarbonate), 650 MG PO TID Thiamine Mononitrate (Vitamin B1), 100 MG PO QAM Scheduled PRN Albuterol Hfa (Ventolin Hfa), 2 PUFFS INH Q4H PRN for Wheezing Hyoscyamine Sulfate (Levsin), 0.125 MG PO ACHS PRN for Abdominal Pain/Bloating Ondansetron (Ondansetron HCl), 4 MG PO Q8 PRN for Nausea Tramadol HCl (Tramadol HCl), 50 MG PO Q6H PRN for Pain Review of Systems Cannot obtain due to patient's mental status Physical Exam Vital Signs Date Time Temp Pulse Resp B/P (MAP) Pulse Ox O2 Delivery O2 Flow Rate FiO2 08/08/17 17:30 122 30 119/56 95 CPAP 08/08/17 16:59 120 26 135/80 95 BiPAP 08/08/17 16:30 119 08/08/17 16:27 98 CPAP 08/08/17 16:13 120 98 30 08/08/17 16:00 Nasal Cannula 08/08/17 15:58 38.1 117 20 99/60 97 Nasal Cannula 3.0 General Appearance: + moderate distress, + severe distress, + pertinent finding (confused, lethargic, bipap on during exam) Head: normocephalic, atraumatic Respiratory/Chest: + respiratory distress, + decreased breath sounds, + accessory muscle use, + crackles Cardiovascular: no edema, + tachycardia Abdomen/GI: normal bowel sounds, non tender, soft Extremities/Musculoskelatal: + pertinent finding (trace pitting edema b/l LE) Neurologic/Psych: + disoriented, + pertinent finding (lethargic, confused) Diagnostics Laboratory Results Results Past 24 Hours Test 08/08/17 15:59 08/08/17 16:00 08/08/17 16:21 08/08/17 16:26 Range/Units Bedside Hemoglobin 8.5 7.8 12.0-16.0 g/dl Bedside Hematocrit 25 23 37-47 % Bedside Blood Gas pH (LAB) 7.39 7.35-7.45 Bedside Blood Gas pCO2 (LAB) 27 35-46 mmHg Bedside Blood Gas pO2 (LAB) 69 80-95 mmHg Bedside Blood Gas HCO3 (LAB) 16 19-24 meq/L Bedside Blood Gas Total CO2 17 24-31 mEq/l Bedside Blood Gas Base Excess (LAB) -9.0 -9-1.8 meq/L Bedside Blood Gas O2 Saturation 94.0 90-95 % Bedside Sodium 140 139 135-144 mEq/L Bedside Potassium 4.2 4.3 3.3-5.0 mEq/L White Blood Count 8.73 4.8-10.8 K/uL Red Blood Count 2.77 4.2-5.4 M/uL Hemoglobin 7.9 12.0-16.0 g/dL Hematocrit 24.8 37-47 % Mean Corpuscular Volume 89.5 80-100 fL Mean Corpuscular Hemoglobin 28.5 25-34 pg Mean Corpuscular Hemoglobin Concent 31.9 32-36 g/dl Platelet Count 204 130-400 K/uL Mean Platelet Volume 9.2 7.4-10.4 fL Neutrophils (%) (Auto) 88.6 % Lymphocytes (%) (Auto) 2.7 % Monocytes (%) (Auto) 7.9 % Eosinophils (%) (Auto) 0.2 % Basophils (%) (Auto) 0.3 % Neutrophils # (Auto) 7.72 1.4-6.5 K/uL Lymphocytes # (Auto) 0.24 1.2-3.4 K/uL Monocytes # (Auto) 0.69 0.11-0.59 K/uL Eosinophils # (Auto) 0.02 0-0.5 K/uL Basophils # (Auto) 0.03 0-0.2 K/uL RDW Standard Deviation 62.2 36.4-46.3 fL RDW Coefficient of Variation 18.8 11.5-14.5 % Immature Granulocyte % (Auto) 0.3 % Immature Granulocyte # (Auto) 0.03 0.00-0.02 K/uL Anisocytosis PRESENT Acanthocytes 1+ Schistocytes 1+ Prothrombin Time 12.5 9.0-12.0 SECONDS Prothromb Time International Ratio 1.2 0.9-1.1 Activated Partial Thromboplast Time 29.6 21.0-31.0 SECONDS Partial Thromboplastin Ratio 1.1 Sodium Level 136 136-145 mmol/L Potassium Level 4.1 3.5-5.1 mmol/L Chloride Level 109 98-107 mmol/L Carbon Dioxide Level 18 21-32 mmol/L Anion Gap 9.0 17.0 16-25 mmol/L Blood Urea Nitrogen 9 7-18 mg/dl Creatinine 0.90 0.60-1.20 mg/dl Estimated GFR () 80.0 Estimated GFR (Non- 69.0 BUN/Creatinine Ratio 10.5 10-20 Random Glucose 77 70-99 mg/dl Calcium Level 8.9 8.5-10.1 mg/dl Magnesium Level 1.6 1.8-2.4 mg/dl Total Bilirubin 1.4 0.2-1 mg/dl Aspartate Amino Transf (AST/SGOT) 23 15-37 U/L Alanine Aminotransferase (ALT/SGPT) 16 12-78 U/L Alkaline Phosphatase 84 45-117 U/L Total Protein 7.5 6.4-8.2 gm/dl Albumin 3.1 3.4-5.0 gm/dl Globulin 4.4 2.5-4.0 gm/dl Albumin/Globulin Ratio 0.7 0.9-2 Bedside Lactic Acid Venous 2.71 0.90-1.70 mmol/L Bedside Chloride 109 101-112 mEq/L Bedside Total CO2 18 24-31 mEq/l Bedside Blood Urea Nitrogen 9 7-18 mg/dl Bedside Creatinine 0.8 0.6-1.3 mg/dl Bedside Glucose (other) 78 70-99 mg/dl Bedside Ionized Calcium (Eliza) 1.25 1.12-1.32 mmol/l Test 08/08/17 16:45 08/08/17 18:16 Range/Units Ammonia 36.0 11-32 umol/L Troponin I 0.096 0-0.045 ng/ml Microbiology Results 08/08/17 Blood Culture, Received Pending 08/08/17 Blood Culture, Received Pending Diagnostic Radiology CHEST ONE VIEW PORTABLE CLINICAL HISTORY: Worsening shortness of breath. COMPARISON STUDY: 08/08/2017 FINDINGS: The heart is at the upper limits of normal in size. There is no focal pulmonary consolidation. There is mild interstitial edema. There are trace pleural effusions.[ IMPRESSION: Minimal worsening in the congestive failure/fluid overload pattern with trace bilateral pleural effusions EKG Right axis deviation Pulmonary disease pattern Septal infarct , age undetermined Impression Assessment and Plan This is a 62 year old female with a PMH of alcoholic liver cirrhosis and recurrent ascites, paracentesis - s/p TIPS procedure in June 2017, COPD, ongoing tobacco abuse Acute on Chronic Hypoxic Respiratory Failure Acute COPD Exacerbation - possibly a combination of COPD and fluid overload - hx. of TIPS, did require paracentesis last week, found to have SBP - was started on Cipro at that time - does not appear to have reaccumulated ascitic fluid, but CXR suggests fluid overload - will give Lasix x1 - patient is now intubated - nebs and solu-medrol ordered - further management as per pulm and aircraft powerplant repairer - to note: baseline O2 of 3L at home Sepsis - patient meets sepsis criteria: leukocytosis, lactic acidosis, tachycardia, hypotension - will give Zosyn + Vanco for now - had been on Cipro due to SBP from previous paracentesis - nava-culture Delirium secondary to Hypoxia vs. Hyperammonemia - multifactorial, hypoxia, respiratory failure, increased ammonia, infectious cause - treat infection with Zosyn + Vanco - s/p intubation, monitor ABGs as per aircraft powerplant repairer - increased lactulose from BID dosing to TID, monitor for stools Alcoholic Liver Cirrhosis - continue current medications - GI consulted - Vanc + Zosyn - lactulose, Rifaximin Anemia - likely secondary to liver disease - monitor and transfuse as needed DVT ppx - SCDs secondary to anemia FULL CODE Resuscitation Status VTE Prophylaxis Will order VTE Prophylaxis: Yes
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
--- NOTE | 2017-08-08 20:48 | Pharmacy Progress Note ---
Pharmacy Abx Dose Short Note Date of Service Aug 08, 2017. Assessment & Plan Item Value Date Time White Blood Count 8.73 K/uL 08/08/17 1600 Bedside Creatinine 0.8 mg/dl 08/08/17 1626 Creatinine 0.90 mg/dl 08/08/17 1600 Estimated GFR () 80.0 08/08/17 1600 Assessment 62 year old female receiving VANC/ZOSYN for empiric treatment, please reorder after 48 hours if appropriate. Day # 1 of antimicrobial therapy. Plan Vancomycin * Vanc 1 gram not given in ED. Will opt to load with ~25mg/kg in ICU. * Estimated p'kinetics: Vd~0.7L/kg, Ke~0.0708hr-1, t1/2~10hrs * LOADING DOSE: Vanc 1500mg (~25mg/kg) IV x 1 * Maintenance DoseL VANC 1g (~17mg/kg) IV every 14 hours. * Goal trough level: 15 to 20 mcg/mL * VANC Trough @ Css prior to dose 08/10-1399 Zosyn: 3.375g IV x 1 then 3.375g IV CI every 8 hours for GFR >20mL/min Pharmacy will continue to follow and will adjust dose/frequency as necessary. Thank you.
[2017-08-08] MEDS ORDERED: LEVALBUTEROL 0.63MG/3 ML NEB INH SCH (21:00)
[2017-08-08] MEDS ORDERED: VANCOMYCIN IV 1,500 MG in SODIUM CHLORIDE 0.9% 500ML 500 ML IV ONE (21:00)
[2017-08-08] MEDS ORDERED: NURSING VERBAL MED ORDER STA (21:05)
[2017-08-08] MEDS: NOREPINEPHRINE BIT INJ 8 MG in DEXTROSE 5% 500ML 500 ML IV PRN (21:16)
[2017-08-08] MEDS ORDERED: NURSING VERBAL MED ORDER PRN (21:30)
[2017-08-08] MEDS: MIDAZOLAM HCL 1 MG/ML 2ML VIAL IV PRN ×2 (21:48→23:40)
[2017-08-08] MEDS: LACTULOSE SYRUP 30 GM/45 ML UDP PO SCH (21:49)
[2017-08-08] MEDS: METHYLPREDNISOLONE IV 40 MG in SYRINGE 0 ML IV SCH (21:49)
[2017-08-08] MEDS: RIFAXIMIN TAB 550 MG TAB PO SCH (21:49)
[2017-08-08] MEDS: SODIUM BICARBONATE 650 MG TAB PO SCH (21:49)
[2017-08-08] MEDS: GABAPENTIN 300 MG CAP PO SCH (21:49)
--- NOTE | 2017-08-08 21:52 | DIAGNOSTIC IMAGING REPORT ---
CHEST ONE VIEW PORTABLE CLINICAL HISTORY: Respiratory failure. Intubation and central line placement. COMPARISON STUDY: 08/08/2017 FINDINGS: There is radiographic evidence of congestive failure/fluid overload. There are trace pleural effusions. There has been interval placement of nasogastric tube which passes into the stomach. There is been placement of an endotracheal tube which is positioned approximately 3 cm above the daija. There is a right internal jugular central venous catheter projected superior vena cava. There is no pneumothorax. IMPRESSION: 1. Interval placement of endotracheal tube approximately 3 cm above the daija 2. Interval placement of a nasogastric tube which is positioned within the stomach 3. No evidence of pneumothorax status post placement of a right internal jugular central venous catheter 4. Radiographic evidence of congestive failure with small bilateral pleural effusions Electronically signed by: Dalton Hassan M.D. 08/08/2017 9:51 PM Dictated Date/Time: 08/08/2017 9:49 PM
--- NOTE | 2017-08-08 21:56 | Procedure Note ---
Procedure Note Procedure Date Aug 08, 2017. Central Line Procedure time out: side/site verified, patient ID confirmed, sterile procedure used Consent obtained: verbal (Consent Obtained by Dr. San from Next of Kin on Chart: Huber Thorpe) Time of procedure: 21:10 Performed by: physician clinical esthetician Indications: poor venous access, central drug admin. Prep: chlorhexadine prep, sterile drape, sterile procedures used Anesthesia: local injection, lidocaine 1% without epi Volume anesthetic (ml's): 5 Central line lumen: triple Central line location: internal jugular (R) Additional details: percutaneous placement, ultrasound guidance, Selinger technique used, line sutured, good blood return CXR: appropriate position, no pneumothorax Complications: bleeding (Minor Bleeding post placement, Controlled 3cc) Patient tolerated procedure: well Post-procedure vital signs: reviewed and stable Comments: Critical Care Medicine Point of Care Bedside Ultrasound Procedure: Procedural Ultrasound Procedure Date: 08/08/2017 Indication: Poor Central Access in the Setting of Acute Hypotension Attending: Orlando San DO Resident/Physician Stiff Leg Derrick Operator: Mary Guerrero PA-C If for central venous access Artery AND Vein visualized: Y Compressible Vein: Y Guidewire or Short Catheter seen in vein prior to dilation: Y Line confirmed in Vein with ultrasound: Y If no lung sliding or not obtained has CXR been ordered: Y Impression: Line in place Plan: * May begin using line * Move Levophed from Peripheral site to CVL * Goal MAP > 60 Images obtained are saved for permanent record Consent was obtained prior to procedure. Indication, risks, and benefits were explained at length. Procedure: Procedure was performed under strict sterile field in O.R. fashion. The right neck and chest were cleaned with chloroprep scrub and the pt was draped in sterile fashion. The internal jugular vein was identified using ultrasound. After anesthetizing the area with 5cc of lidocaine, venous blood was withdrawn after accessing the vein under ultrasound guidance. The syringe was removed and a guide wire was advanced into the introducer needle.The dilator was advanced after being exchanged for the introducer needle. After appropriate dilation was obtained, the dilator was removed and the central catheter was placed over the guide wire using Seldinger technique. The wire was removed and the catheter was sutured at 15cm. A surgical dressing was placed over the catheter with a biofilm shield in place. At the time of the procedure each port was aspirated and then flushed properly. Pt tolerated the procedure well with no complications. Post procedure x-ray was completed, placement was appropriate and no pneumothorax was noted.
[2017-08-08] MEDS ORDERED: PIPERACILL/TAZOBAC IV 3.375 GM in DEXTROSE 5% 100ML 100 ML IV SCH (22:00)
[2017-08-09] VITALS (62 sets, daily range): BP systolic 71–112; BP diastolic 34–72; PULSE 101–116; TEMP 35.9–36.9; O2SAT 6–99; Ht 162.6 cm; Wt 62.1 kg
[2017-08-09] MEDS ORDERED: NURSING VERBAL MED ORDER STA ×2 (00:10→00:58)
[2017-08-09] MEDS ORDERED: SODIUM CHLORIDE 0.9% 500ML 500 ML IV STA (00:29)
[2017-08-09] MEDS: MIDAZOLAM HCL 1 MG/ML 2ML VIAL IV PRN ×11 (01:17→21:58)
[2017-08-09] MEDS ORDERED: LEValbuterol HFA 15GM INHALER INH ONE (01:40)
[2017-08-09] MEDS: PIPERACILL/TAZOBAC IV 3.375 GM in DEXTROSE 5% 100ML IV SCH ×3 (01:45→17:15)
[2017-08-09] MEDS ORDERED: NURSING VERBAL MED ORDER ONE (02:15)
[2017-08-09 02:39] LABS: HEMATOCRIT 23.9 % (37-47); HEMOGLOBIN 7.6 g/dL (12.0-16.0); MEAN CELL VOLUME 91.6 fL (80-100); MEAN CORPUSCULAR HEMOGLOBIN 29.1 pg (25-34); MEAN CORPUSCULAR HGB CONC 31.8 g/dl (32-36); MEAN PLATELET VOLUME 8.6 fL (7.4-10.4); PLATELET COUNT 194 K/uL (130-400); RED CELL DISTRIBUTION WIDTH CV 18.6 % (11.5-14.5); RED CELL DISTRIBUTION WIDTH SD 62.7 fL (36.4-46.3); WHITE BLOOD COUNT 12.69 K/uL (4.8-10.8)
[2017-08-09 03:00] LABS: ALBUMIN 2.9 gm/dl (3.4-5.0); CALCIUM 7.7 mg/dl (8.5-10.1); CREATININE 0.98 mg/dl (0.60-1.20); POTASSIUM 4.1 mmol/L (3.5-5.1)
[2017-08-09 03:02] LABS: PHOSPHORUS 5.3 mg/dl (2.5-4.9); TOTAL PROTEIN 7.5 gm/dl (6.4-8.2)
[2017-08-09 03:04] LABS: BASO % 0.2 %; BASO ABS # 0.03 K/uL (0-0.2); IG# 0.05 K/uL (0.00-0.02); LYMPH % 3.2 %; MONO % 6.4 %; MONO ABS # 0.81 K/uL (0.11-0.59); NEUT % 89.8 %
[2017-08-09] MEDS ORDERED: FENTANYL CITRATE INJ 50 MCG/1 ML 2 ML VIAL ONE (03:09)
[2017-08-09] MEDS ORDERED: ALBUMIN HUMAN 5% 12.5 GM/250 ML VIAL IV STA (04:37)
[2017-08-09] MEDS: FENTANYL CITRATE INJ 50 MCG/1 ML 2 ML VIAL IV PRN (04:58)
[2017-08-09] MEDS: NOREPINEPHRINE BIT INJ 8 MG in DEXTROSE 5% 500ML 500 ML IV PRN (04:59)
[2017-08-09] MEDS: METHYLPREDNISOLONE IV 40 MG in SYRINGE 0 ML IV SCH ×3 (06:00→21:54)
[2017-08-09] MEDS: LEVOTHYROXINE 25 MCG TAB PO SCH (06:00)
[2017-08-09] MEDS ORDERED: MIDODRINE 10 MG TAB PO SCH (07:00)
[2017-08-09] MEDS: LEValbuterol HFA 15GM INHALER INH SCH ×3 (07:15→19:50)
[2017-08-09] MEDS: SODIUM BICARBONATE 650 MG TAB PO SCH ×3 (07:53→20:08)
[2017-08-09] MEDS: GABAPENTIN 300 MG CAP PO SCH ×3 (07:53→20:08)
[2017-08-09] MEDS: RIFAXIMIN TAB 550 MG TAB PO SCH ×2 (07:53→20:07)
[2017-08-09] MEDS: LACTULOSE SYRUP 30 GM/45 ML UDP PO SCH ×3 (07:53→20:07)
--- NOTE | 2017-08-09 08:38 | Progress Note ---
Medicine Progress Note Date & Time of Visit: Aug 09, 2017 at 08:34. Subjective Admitted yesterday with acute respiratory failure. Intubated in ED. Sedated on ventilator. No fever. Did not tolerate CPAP/pressure support trial. Requiring pressors for hemodynamic support. . Objective Last 8 Hrs Date Time Temp Pulse Resp B/P (MAP) Pulse Ox O2 Delivery O2 Flow Rate FiO2 08/09/17 07:25 30 08/09/17 07:15 30 08/09/17 06:31 36.0 104 20 81/47 (52) 99 08/09/17 06:16 36.0 103 21 99/51 (62) 99 08/09/17 05:46 35.9 102 18 86/67 (74) 98 08/09/17 05:31 35.9 102 20 104/55 (75) 98 08/09/17 05:30 40 08/09/17 05:16 36.0 101 18 91/62 (74) 98 08/09/17 05:01 36.0 104 20 89/60 (67) 98 08/09/17 04:46 36.0 102 20 84/56 (61) 98 08/09/17 04:31 36.0 101 20 75/53 (58) 98 08/09/17 04:16 36.0 101 20 71/53 (60) 99 08/09/17 04:01 36.0 103 15 90/60 (67) 97 08/09/17 04:00 40 08/09/17 04:00 96 Mechanical Ventilator 40 08/09/17 03:46 36.0 103 19 88/44 (77) 96 08/09/17 03:31 36.1 103 19 81/55 (60) 96 08/09/17 03:16 36.1 104 16 77/54 (63) 97 08/09/17 03:10 36.1 106 21 81/57 (61) 97 08/09/17 03:01 36.1 107 20 78/55 (60) 97 08/09/17 02:48 36.1 114 21 92/64 (69) 94 08/09/17 02:31 36.1 108 21 85/56 (75) 96 08/09/17 02:30 40 08/09/17 02:16 36.1 107 20 83/56 (60) 96 08/09/17 02:02 36.1 109 20 107/54 (82) 95 08/09/17 01:46 36.1 107 20 87/59 (63) 96 08/09/17 01:32 36.1 106 20 78/34 (45) 97 08/09/17 01:16 36.1 112 19 88/60 (77) 94 08/09/17 01:03 36.0 110 22 95/44 (56) 96 08/09/17 00:47 36.0 109 21 93/45 (55) 94 Physical Exam: General-sedated on ventilator Eyes-anicteric ENT-oral ET tube; oral G-tube Neck-right IJ catheter Lungs-diffuse wheezing, prolonged expiration, few scattered rhonchi Heart-regular, tachy, no gallop appreciated Abdomen-slightly distended, soft -Nails catheter draining clear urine Extremities-no pretibial edema; SCDs applied Neuro-sedated . Laboratory Results: Last 24 Hours Test 08/08/17 15:59 08/08/17 16:00 08/08/17 16:21 08/08/17 16:26 Bedside Hemoglobin 8.5 g/dl 7.8 g/dl Bedside Hematocrit 25 % 23 % Bedside Blood Gas pH (LAB) 7.39 Bedside Blood Gas pCO2 (LAB) 27 mmHg Bedside Blood Gas pO2 (LAB) 69 mmHg Bedside Blood Gas HCO3 (LAB) 16 meq/L Bedside Blood Gas Total CO2 17 mEq/l Bedside Blood Gas Base Excess (LAB) -9.0 meq/L Bedside Blood Gas O2 Saturation 94.0 % Bedside Sodium 140 mEq/L 139 mEq/L Bedside Potassium 4.2 mEq/L 4.3 mEq/L White Blood Count 8.73 K/uL Red Blood Count 2.77 M/uL Hemoglobin 7.9 g/dL Hematocrit 24.8 % Mean Corpuscular Volume 89.5 fL Mean Corpuscular Hemoglobin 28.5 pg Mean Corpuscular Hemoglobin Concent 31.9 g/dl Platelet Count 204 K/uL Mean Platelet Volume 9.2 fL Neutrophils (%) (Auto) 88.6 % Lymphocytes (%) (Auto) 2.7 % Monocytes (%) (Auto) 7.9 % Eosinophils (%) (Auto) 0.2 % Basophils (%) (Auto) 0.3 % Neutrophils # (Auto) 7.72 K/uL Lymphocytes # (Auto) 0.24 K/uL Monocytes # (Auto) 0.69 K/uL Eosinophils # (Auto) 0.02 K/uL Basophils # (Auto) 0.03 K/uL RDW Standard Deviation 62.2 fL RDW Coefficient of Variation 18.8 % Immature Granulocyte % (Auto) 0.3 % Immature Granulocyte # (Auto) 0.03 K/uL Anisocytosis PRESENT Acanthocytes 1+ Schistocytes 1+ Prothrombin Time 12.5 SECONDS Prothromb Time International Ratio 1.2 Activated Partial Thromboplast Time 29.6 SECONDS Partial Thromboplastin Ratio 1.1 Sodium Level 136 mmol/L Potassium Level 4.1 mmol/L Chloride Level 109 mmol/L Carbon Dioxide Level 18 mmol/L Anion Gap 9.0 mmol/L 17.0 mmol/L Blood Urea Nitrogen 9 mg/dl Creatinine 0.90 mg/dl Estimated GFR () 80.0 Estimated GFR (Non- 69.0 BUN/Creatinine Ratio 10.5 Random Glucose 77 mg/dl Calcium Level 8.9 mg/dl Magnesium Level 1.6 mg/dl Total Bilirubin 1.4 mg/dl Aspartate Amino Transf (AST/SGOT) 23 U/L Alanine Aminotransferase (ALT/SGPT) 16 U/L Alkaline Phosphatase 84 U/L Total Protein 7.5 gm/dl Albumin 3.1 gm/dl Globulin 4.4 gm/dl Albumin/Globulin Ratio 0.7 Bedside Lactic Acid Venous 2.71 mmol/L Bedside Chloride 109 mEq/L Bedside Total CO2 18 mEq/l Bedside Blood Urea Nitrogen 9 mg/dl Bedside Creatinine 0.8 mg/dl Bedside Glucose (other) 78 mg/dl Bedside Ionized Calcium (Eliza) 1.25 mmol/l Test 08/08/17 16:45 08/08/17 18:16 08/08/17 20:00 08/08/17 23:06 Ammonia 36.0 umol/L Troponin I 0.096 ng/ml 0.422 ng/ml Peritoneal Fluid Color YELLOW Peritoneal Fluid Appearance CLEAR Peritoneal Fluid WBC 166 /uL Peritoneal Fluid RBC < 3000 /uL Peritoneal Fld Mononuclear WBCs (%) 82.6 % Peritoneal Fld Polynuclear WBCs (%) 17.4 % Lactic Acid Level 2.2 mmol/L Test 08/08/17 23:11 08/09/17 01:38 08/09/17 02:28 08/09/17 05:50 Bedside Glucose (other) 134 mg/dl 160 mg/dl Urine Color YELLOW Urine Appearance CLEAR Urine pH 5.0 Urine Specific [place] 1.012 Urine Protein NEG Urine Glucose (UA) NEG Urine Ketones NEG Urine Occult Blood 1+ Urine Nitrite NEG Urine Bilirubin NEG Urine Urobilinogen NEG Urine Leukocyte Esterase NEG Urine WBC (Auto) 1-5 /hpf Urine RBC (Auto) 0-4 /hpf Urine Hyaline Casts (Auto) 1-5 /lpf Urine Epithelial Cells (Auto) 10-20 /lpf Urine Bacteria (Auto) NEG White Blood Count 12.69 K/uL Red Blood Count 2.61 M/uL Hemoglobin 7.6 g/dL Hematocrit 23.9 % Mean Corpuscular Volume 91.6 fL Mean Corpuscular Hemoglobin 29.1 pg Mean Corpuscular Hemoglobin Concent 31.8 g/dl Platelet Count 194 K/uL Mean Platelet Volume 8.6 fL Neutrophils (%) (Auto) 89.8 % Lymphocytes (%) (Auto) 3.2 % Monocytes (%) (Auto) 6.4 % Eosinophils (%) (Auto) 0.0 % Basophils (%) (Auto) 0.2 % Neutrophils # (Auto) 11.40 K/uL Lymphocytes # (Auto) 0.40 K/uL Monocytes # (Auto) 0.81 K/uL Eosinophils # (Auto) 0.00 K/uL Basophils # (Auto) 0.03 K/uL RDW Standard Deviation 62.7 fL RDW Coefficient of Variation 18.6 % Immature Granulocyte % (Auto) 0.4 % Immature Granulocyte # (Auto) 0.05 K/uL Hypochromasia PRESENT Acanthocytes 2+ Sodium Level 136 mmol/L Potassium Level 4.1 mmol/L Chloride Level 108 mmol/L Carbon Dioxide Level 18 mmol/L Anion Gap 10.0 mmol/L Blood Urea Nitrogen 13 mg/dl Creatinine 0.98 mg/dl Est Creatinine Clear Calc Drug Dose 52.1 ml/min Estimated GFR () 72.2 Estimated GFR (Non- 62.3 BUN/Creatinine Ratio 13.4 Random Glucose 146 mg/dl Lactic Acid Level 2.4 mmol/L Calcium Level 7.7 mg/dl Phosphorus Level 5.3 mg/dl Magnesium Level 2.0 mg/dl Total Bilirubin 1.6 mg/dl Aspartate Amino Transf (AST/SGOT) 43 U/L Alanine Aminotransferase (ALT/SGPT) 21 U/L Alkaline Phosphatase 68 U/L Total Protein 7.5 gm/dl Albumin 2.9 gm/dl Globulin 4.6 gm/dl Albumin/Globulin Ratio 0.6 Test 08/09/17 05:53 Venous Blood pH 7.20 Venous Blood Partial Pressure CO2 48 mmHg Venous Blood Partial Pressure O2 54 mmHg Venous Blood HCO3 18 mmol/L Venous Blood Oxygen Saturation 80.3 % Venous Blood Base Excess -9.2 mEq/L Troponin I 0.821 ng/ml Date/Time Source Procedure Growth Status 08/08/17 16:45 Blood Blood Culture Pending Received 08/08/17 16:33 Blood Blood Culture Pending Received 08/08/17 19:50 Nasal MRSA DNA Surveillance Screen - Final Specimen Negative for MRSA by DNA Probe Complete 08/08/17 23:40 Sputum Trach. Tube Suction Gram Stain - Final Resulted 08/08/17 23:40 Sputum Trach. Tube Suction Sputum Culture Pending Resulted 08/08/17 20:00 Peritoneal Fluid Gram Stain - Final Resulted 08/08/17 20:00 Peritoneal Fluid Bacterial Culture Pending Resulted Other Studies: EKG performed at 0758 reviewed and demonstrated sinus tachycardia at 113/minute , T-wave flattening anterior and lateral leads. . Assessment & Plan CARDIOVASCULAR Serum troponin 0.096 --> 0.821. EKG as noted above. 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 Hypotensive, received norepinephrine for pressor support. Management per Critical Care Medicine. RESPIRATORY Acute hypoxic respiratory failure requiring intubation/mechanical ventilation. Underlying chronic hypoxic respiratory failure due to COPD, on home O2. Did not tolerate weaning trial this morning. Management per Critical Care Medicine. GI History of cirrhosis (attributed to hepatitis C + alcohol) with portal hypertension, S/P TIPS. Total bilirubin 1.6. INR 1.2. Ammonia 36. Peritoneal WBC's 166. GI consulted. Receiving lactulose. IV pantoprazole for stress ulcer prophylaxis. RENAL / LYTES Serum creatinine 0.98. Sodium, potassium, magnesium within normal limits. Follow. ENDO Fingerstick blood sugar this morning 160. Glycemic management per protocol. ID Receiving empiric antibiotics for possible sepsis. Procalcitonin 7.92. No infiltrates on chest x-ray. Urine does not appear to be infected. Does not appear to have SBP. ID consulted. HEME Hgb on admission 7.9, repeat this morning 7.6. Underlying cirrhosis. No gross GI bleeding. Follow H/H. NEURO Encephalopathy, probable metabolic encephalopathy. Follow. VTE PROPHYLAXIS SQ enoxaparin. Ambulate when able. DISPOSITION Critically ill. Discharge disposition to be determined. . Consultants: [facility] . Current Inpatient Medications: Current Inpatient Medications Medications (Trade) Dose Ordered Sig/Shelby Route Start Time Stop Time Status Last Admin Dose Admin Ondansetron HCl (Zofran Inj) 4 mg Q6H PRN IV 08/08/17 18:00 09/07/17 17:59 Vancomycin HCl 1000 mg/Sodium Chloride 270 ml @ 125 mls/hr Q14H IV 08/09/17 10:00 08/10/17 23:59 Miscellaneous Information (Consult) 1 ea UD PRN N/A 08/08/17 18:00 09/07/17 17:59 Miscellaneous Information (Consult) 1 ea UD PRN N/A 08/08/17 18:00 09/07/17 17:59 Methylprednisolone Sodium Succinate 40 mg/Syringe 0.64 ml @ 1.5 mls/min Q8H IV 08/08/17 22:00 09/07/17 21:59 08/09/17 06:00 1.5 MLS/MIN Citalopram Hydrobromide (celeXA TAB) 20 mg DAILY PO 08/09/17 09:00 09/08/17 08:59 08/09/17 07:52 20 MG Folic Acid (Folvite Tab) 1 mg QAM PO 08/09/17 09:00 09/08/17 08:59 08/09/17 07:53 1 MG Gabapentin (Neurontin Cap) 300 mg TID PO 08/08/17 21:00 09/07/17 20:59 08/09/17 07:53 300 MG Hyoscyamine Sulfate (Levsin Tab) 0.125 mg ACHS PRN PO 08/08/17 18:15 09/07/17 18:14 Levothyroxine Sodium (Synthroid Tab) 25 mcg DAILYBB PO 08/09/17 06:00 09/08/17 06:59 08/09/17 06:00 25 MCG Midodrine (Proamatine Tab) 10 mg TID@0700,1300,1800 PO 08/09/17 07:00 09/08/17 06:59 08/09/17 06:21 10 MG Rifaximin (Xifaxan Tab) 550 mg BID PO 08/08/17 21:00 09/07/17 20:59 08/09/17 07:53 550 MG Sodium Bicarbonate (Sodium Bicarbonate Tab) 650 mg TID PO 08/08/17 21:00 09/07/17 20:59 08/09/17 07:53 650 MG Lactulose (Chronulac Syrup) 30 gm TID PO 08/08/17 21:00 09/07/17 20:59 08/09/17 07:53 30 GM Piperacillin Sod/ Tazobactam Sod 3.375 gm/Dextrose 115 ml @ 28.75 mls/ hr Q8H IV 08/09/17 02:00 08/11/17 01:59 08/09/17 01:45 28.75 MLS/HR Norepinephrine Bitartrate 8 mg/ Dextrose 508 ml @ 0 mls/hr Q0M PRN IV 08/08/17 21:15 09/07/17 21:14 08/09/17 04:59 73.4 MLS/HR Levalbuterol (Xopenex Hfa Inhaler) 2 puffs QID INH 08/09/17 09:00 09/08/17 08:59 Midazolam HCl (Versed Inj) 2 mg Q1H PRN IV 08/09/17 02:30 09/08/17 02:29 08/09/17 07:51 2 MG Fentanyl Citrate (Fentanyl Inj) 50 mcg Q1H PRN IV 08/09/17 03:00 08/23/17 02:59 08/09/17 04:58 50 MCG Nicotine (Nicoderm Cq 7 Mg Patch) 1 patch QAM TD 08/09/17 09:00 09/08/17 08:59 08/09/17 07:55 1 PATCH Miscellaneous (Remove Nicoderm Patch) 1 ea HS N/A 08/09/17 21:00 09/08/17 20:59
--- NOTE | 2017-08-09 08:57 | ECHOCARDIOGRAM REPORT ---
*NOTICE TO RECEIVING [employer] This information is strictly Confidential and protected under [place] law. [place] law prohibits you from making any further disclosure of this information unless further disclosure is expressly permitted by the written consent of the person to whom it pertains or is authorized by law. A general authorization for the release of medical or other information is not sufficient for this purpose. Hospital accepts no responsibility if the information is made available to any other person, INCLUDING THE PATIENT. 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 * LV systolic function is mildly reduced, EF 40-45%. * Grade II diastolic dysfunction. * Mild tricuspid regurgitation. * Small circumferential pericardial effusion without hemodynamic significance. * PASP of 39 mmHg assuming a RA pressure of 8 mmHg vented. * The interatrial septum is intact with no evidence for an atrial septal defect. Injection of contrast documented no interatrial shunt. Procedure Details * A complete two-dimensional transthoracic echocardiogram was performed (2D, M-mode, Doppler and color flow Doppler). * There were technical limitations due to patient'ssupine positioning while on mechanical ventilation * A saline contrast injection was performed to assess for cardiac shunting. * The injection was performed through central line * A total of 30 cc of agitated saline was given. * The attending nurse who injected the saline contrast was Orlando Bills RN. Left Ventricle * The left ventricle is normal in size. * There is normal left ventricular wall thickness. * Ejection Fraction = 40-45%. * Left ventricular systolic function is mildly reduced. 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 Right Ventricle * The right ventricular cavity size is normal (basal dimension <4.2 cm in right ventricular apical 4-chamber view). * The right ventricular systolic function is normal as assessed by tricuspid annular plane systolic excursion (TAPSE) (normal >1.5 cm). Atria * The left atrium is mildly dilated. * Right atrial size is normal. * The interatrial septum is intact with no evidence for an atrial septal defect. * Injection of contrast documented no interatrial shunt. Mitral Valve * The anterior mitral valve leaflet is calcified to a moderate to severe degree. * There is no mitral valve stenosis. * There is no mitral regurgitation noted. Tricuspid Valve * The tricuspid valve anatomy is normal. * There is no tricuspid stenosis. * There is mild tricuspid regurgitation. Aortic Valve * The aortic valve is normal in structure and function. Pulmonic Valve * The pulmonary valve is not well seen, but the Doppler examination is normal without significant regurgitation or stenosis. Great Vessels * The aortic root and proximal ascending aorta are normal sized. Pericardium/Pleural * Small pericardial effusion. * A circumferential pericardial effusion is noted. * There are no echocardiographic indications of cardiac tamponade. Left Ventricular Diastolic Function * Diastolic dysfunction, Grade II (pseudonormalization pattern). MMode 2D Measurements and Calculations IVSd 0.93 cm IVSs 1.1 cm LVIDd 5.7 cm LVIDs 4.3 cm LVPWd 1.0 cm LVPWs 1.1 cm IVS/LVPW 0.93 FS 25.0 % EDV(Teich) 159.5 ml ESV(Teich) 81.7 ml EF(Teich) 48.8 % EDV(cubed) 184.3 ml ESV(cubed) 77.9 ml EF(cubed) 57.8 % % IVS thick 13.9 % % LVPW thick 9.8 % LV mass(C)d 216.6 grams LV mass(C)dI 136.1 grams/m\S\2 LV mass(C)s 157.6 grams LV mass(C)sI 99.0 grams/m\S\2 SV(Teich) 77.8 ml SI(Teich) 48.9 ml/m\S\2 SV(cubed) 106.5 ml SI(cubed) 66.9 ml/m\S\2 Ao root diam 3.4 cm Ao root area 8.9 cm\S\2 ACS 1.7 cm LA dimension 4.1 cm asc Aorta Diam 3.2 cm LA/Ao 1.2 EDV(MOD-sp4) 89.0 ml ESV(MOD-sp4) 46.0 ml EF(MOD-sp4) 48.3 % EDV(MOD-sp2) 160.0 ml ESV(MOD-sp2) 91.0 ml EF(MOD-sp2) 43.1 % SV(MOD-sp4) 43.0 ml SI(MOD-sp4) 27.0 ml/m\S\2 SV(MOD-sp2) 69.0 ml SI(MOD-sp2) 43.4 ml/m\S\2 Doppler Measurements and Calculations MV E max govind 134.1 cm/sec MV A max govind 90.0 cm/sec MV E/A 1.5 MV V2 max 197.4 cm/sec MV max PG 15.6 mmHg MV V2 mean 134.3 cm/sec MV mean PG 7.7 mmHg MV V2 VTI 29.7 cm MV P1/2t max govind 157.8 cm/sec MV P1/2t 61.6 msec MVA(P1/2t) 3.6 cm\S\2 MV dec slope 750.1 cm/sec\S\2 MV dec time 0.17 sec Ao V2 max 133.0 cm/sec Ao max PG 7.1 mmHg Ao max PG (full) 4.1 mmHg LV V1 max PG 2.9 mmHg LV V1 max 85.7 cm/sec PA V2 max 97.3 cm/sec PA max PG 3.8 mmHg PI max govind 261.0 cm/sec PI max PG 27.2 mmHg PI dec slope 616.7 cm/sec\S\2 PI P1/2t 123.9 msec TR max govind 277.7 cm/sec
[2017-08-09] MEDS ORDERED: NICOTINE 7 MG/24 HR TDSY TD SCH (09:00)
[2017-08-09] MEDS ORDERED: CITALOPRAM 20 MG TAB PO SCH (09:00)
--- NOTE | 2017-08-09 09:01 | Medical Consult ---
Consultation Date of Consultation: Aug 09, 2017. Attending Physician: Cachorro Sotelo M.D. Reason for Consultation: Sepsis, unknown source, possible SBP History of Present Illness 62-year-old female with history of cirrhosis, alcoholic liver disease, status post TIPS, recent treatment for spontaneous bacterial peritonitis treated with ciprofloxacin, COPD, who was brought to the hospital by EMS after collapsing at home with progressively worsening hypoxia, ultimately leading to intubation. Patient had significant fever along with elevated lactic acid worrisome for sepsis. Has had sampling of peritoneal fluid which appears relatively benign, Gram stain is negative except for white blood cells, culture is pending. Blood cultures are pending. Chest x-ray, read by me, shows evidence of fluid overload , no obvious infiltrate. Patient currently being treated with IV vancomycin and Zosyn. Past Medical/Surgical History Medical Problems: (1) BRADLEY (acute kidney injury) Status: Acute (2) BRADLEY (acute kidney injury) Status: Acute (3) Ambulatory dysfunction Status: Acute (4) Ascites Status: Acute (5) Chest wall contusion Status: Acute (6) Chest wall pain Status: Acute (7) COPD (chronic obstructive pulmonary disease) Status: Acute (8) Diffuse abdominal pain Status: Acute (9) Elevated bilirubin Status: Acute (10) Hyperammonemia Status: Acute (11) Hypomagnesemia Status: Acute (12) Hypotension Status: Acute (13) Paresthesia Status: Acute (14) Partial small bowel obstruction Status: Acute (15) Respiratory failure Status: Acute (16) Sepsis, unspecified organism Status: Acute (17) Symptomatic anemia Status: Acute Medical Problems: (1) Alcohol abuse (2) Cirrhosis (3) COPD, moderate (4) Depression (5) Hepatitis C, chronic (6) Orthostatic hypotension Surgical Problems: (1) H/O exploratory laparotomy (2) History of appendectomy (3) History of tubal ligation Family History FH: dementia FATHER Social History Smoking Status: Current Every Day Smoker (1/2 pack per day since 1970) Alcohol Use: heavy (Per outpt record: 6pack Beer/Day) Drug Use: none Marital Status: in relationship Housing Status: lives with family Allergies Coded Allergies: No Known Allergies (Unverified , 08/08/17) Current Inpatient Medications Current Inpatient Medications Medications (Trade) Dose Ordered Sig/Shelby Route Start Time Stop Time Status Last Admin Dose Admin Ondansetron HCl (Zofran Inj) 4 mg Q6H PRN IV 08/08/17 18:00 09/07/17 17:59 Vancomycin HCl 1000 mg/Sodium Chloride 270 ml @ 125 mls/hr Q14H IV 08/09/17 10:00 08/10/17 23:59 Miscellaneous Information (Consult) 1 ea UD PRN N/A 08/08/17 18:00 09/07/17 17:59 Miscellaneous Information (Consult) 1 ea UD PRN N/A 08/08/17 18:00 09/07/17 17:59 Methylprednisolone Sodium Succinate 40 mg/Syringe 0.64 ml @ 1.5 mls/min Q8H IV 08/08/17 22:00 09/07/17 21:59 08/09/17 06:00 1.5 MLS/MIN Citalopram Hydrobromide (celeXA TAB) 20 mg DAILY PO 08/09/17 09:00 09/08/17 08:59 08/09/17 07:52 20 MG Folic Acid (Folvite Tab) 1 mg QAM PO 08/09/17 09:00 09/08/17 08:59 08/09/17 07:53 1 MG Gabapentin (Neurontin Cap) 300 mg TID PO 08/08/17 21:00 09/07/17 20:59 08/09/17 07:53 300 MG Hyoscyamine Sulfate (Levsin Tab) 0.125 mg ACHS PRN PO 08/08/17 18:15 09/07/17 18:14 Levothyroxine Sodium (Synthroid Tab) 25 mcg DAILYBB PO 08/09/17 06:00 09/08/17 06:59 08/09/17 06:00 25 MCG Rifaximin (Xifaxan Tab) 550 mg BID PO 08/08/17 21:00 09/07/17 20:59 08/09/17 07:53 550 MG Sodium Bicarbonate (Sodium Bicarbonate Tab) 650 mg TID PO 08/08/17 21:00 09/07/17 20:59 08/09/17 07:53 650 MG Lactulose (Chronulac Syrup) 30 gm TID PO 08/08/17 21:00 09/07/17 20:59 08/09/17 07:53 30 GM Piperacillin Sod/ Tazobactam Sod 3.375 gm/Dextrose 115 ml @ 28.75 mls/ hr Q8H IV 08/09/17 02:00 08/11/17 01:59 08/09/17 01:45 28.75 MLS/HR Levalbuterol (Xopenex Hfa Inhaler) 2 puffs QID INH 08/09/17 09:00 09/08/17 08:59 08/09/17 07:15 2 PUFFS Midazolam HCl (Versed Inj) 2 mg Q1H PRN IV 08/09/17 02:30 09/08/17 02:29 08/09/17 07:51 2 MG Fentanyl Citrate (Fentanyl Inj) 50 mcg Q1H PRN IV 08/09/17 03:00 08/23/17 02:59 08/09/17 04:58 50 MCG Nicotine (Nicoderm Cq 7 Mg Patch) 1 patch QAM TD 08/09/17 09:00 09/08/17 08:59 08/09/17 07:55 1 PATCH Miscellaneous (Remove Nicoderm Patch) 1 ea HS N/A 08/09/17 21:00 09/08/17 20:59 Review of Systems Not obtainable as patient is intubated and sedated Physical Exam Date Time Temp Pulse Resp B/P (MAP) Pulse Ox O2 Delivery O2 Flow Rate FiO2 08/09/17 08:31 36.1 111 21 91/61 (71) 94 Mechanical Ventilator 30 08/09/17 08:16 36.1 111 21 92/61 (71) 94 Mechanical Ventilator 30 08/09/17 08:00 36.1 113 19 94/62 (73) 92 Mechanical Ventilator 30 08/09/17 07:25 30 08/09/17 07:15 30 08/09/17 06:31 36.0 104 20 81/47 (52) 99 08/09/17 06:16 36.0 103 21 99/51 (62) 99 08/09/17 05:46 35.9 102 18 86/67 (74) 98 08/09/17 05:31 35.9 102 20 104/55 (75) 98 08/09/17 05:30 40 08/09/17 05:16 36.0 101 18 91/62 (74) 98 08/09/17 05:01 36.0 104 20 89/60 (67) 98 08/09/17 04:46 36.0 102 20 84/56 (61) 98 08/09/17 04:31 36.0 101 20 75/53 (58) 98 08/09/17 04:16 36.0 101 20 71/53 (60) 99 08/09/17 04:01 36.0 103 15 90/60 (67) 97 08/09/17 04:00 40 08/09/17 04:00 96 Mechanical Ventilator 40 08/09/17 03:46 36.0 103 19 88/44 (77) 96 08/09/17 03:31 36.1 103 19 81/55 (60) 96 08/09/17 03:16 36.1 104 16 77/54 (63) 97 08/09/17 03:10 36.1 106 21 81/57 (61) 97 08/09/17 03:01 36.1 107 20 78/55 (60) 97 08/09/17 02:48 36.1 114 21 92/64 (69) 94 08/09/17 02:31 36.1 108 21 85/56 (75) 96 08/09/17 02:30 40 08/09/17 02:16 36.1 107 20 83/56 (60) 96 08/09/17 02:02 36.1 109 20 107/54 (82) 95 08/09/17 01:46 36.1 107 20 87/59 (63) 96 08/09/17 01:32 36.1 106 20 78/34 (45) 97 08/09/17 01:16 36.1 112 19 88/60 (77) 94 08/09/17 01:03 36.0 110 22 95/44 (56) 96 08/09/17 00:47 36.0 109 21 93/45 (55) 94 08/09/17 00:31 36.0 107 20 92/61 (66) 95 08/09/17 00:16 36.0 106 20 89/57 (61) 95 08/09/17 00:01 36.0 107 23 81/60 (72) 95 08/08/17 23:59 95 Mechanical Ventilator 40 08/08/17 23:59 40 08/08/17 23:46 36.1 105 21 77/53 (67) 97 08/08/17 23:33 36.2 109 21 63/42 (52) 96 08/08/17 23:29 40 08/08/17 23:02 36.2 110 21 76/40 (65) 94 08/08/17 22:46 36.2 107 22 75/55 (63) 97 08/08/17 22:45 36.2 107 21 73/49 (51) 98 08/08/17 22:16 36.3 108 19 71/44 (48) 94 08/08/17 22:12 36.4 109 20 75/47 (61) 94 08/08/17 22:07 36.5 110 19 75/46 (62) 95 08/08/17 22:01 36.6 111 19 77/49 (52) 94 08/08/17 21:56 36.7 111 19 89/40 (53) 94 08/08/17 21:51 36.7 113 19 71/54 (59) 94 08/08/17 21:47 36.8 114 17 80/58 (67) 92 08/08/17 21:37 36.8 113 19 80/52 (67) 93 08/08/17 21:31 36.9 113 18 78/59 (68) 94 08/08/17 21:26 36.9 113 18 55/28 (35) 93 08/08/17 21:22 36.9 113 17 81/64 (66) 92 08/08/17 21:18 37.0 113 18 85/63 (65) 92 08/08/17 21:10 37.1 113 18 74/42 (59) 91 08/08/17 21:03 37.1 115 19 58/32 (35) 92 08/08/17 21:02 37.1 114 18 71/52 (60) 92 08/08/17 20:13 37.5 118 18 90/54 (66) 90 08/08/17 20:02 37.6 119 19 81/60 (64) 90 08/08/17 20:00 37.6 116 18 100/78 90 Mechanical Ventilator 40 08/08/17 20:00 37.6 118 19 89 08/08/17 19:45 40 08/08/17 19:38 120 22 100/28 98 08/08/17 17:30 122 30 119/56 95 CPAP 08/08/17 16:59 120 26 135/80 95 BiPAP 08/08/17 16:30 119 08/08/17 16:27 98 CPAP 08/08/17 16:13 120 98 30 08/08/17 16:00 Nasal Cannula 08/08/17 15:58 38.1 117 20 99/60 97 Nasal Cannula 3.0 General Appearance: WD/WN, no apparent distress, + pertinent finding (Sedated on ventilator) Head: normocephalic, atraumatic Eyes: normal inspection, EOMI, sclerae normal ENT: normal ENT inspection, pharynx normal, + pertinent finding (Endotracheal tube in place) Neck: supple, no adenopathy, thyroid normal, trachea midline Respiratory/Chest: chest non-tender, no respiratory distress, no accessory muscle use, + rales, + rhonchi Cardiovascular: regular rate, rhythm, no gallop, no murmur Abdomen/GI: normal bowel sounds, soft, no organomegaly, + distended Back: normal inspection, no CVA tenderness Extremities/Musculoskelatal: normal inspection, normal capillary refill Neurologic/Psych: + pertinent finding (Sedated on ventilator, no obvious focal deficits) Skin: normal color, warm/dry, no rash Lymphatic: no adenopathy Laboratory Results RUN DATE: 08/10/17 [facility] LAB PAGE 1 RUN TIME: 700 Specimen Inquiry PATIENT: MAURICIOCAITYJOSE FRANCISCO C LOC: [facility] U # : [id number] AGE/SX: 62/F ROOM: E107 REG : 08/08/[address]: Cachorro Sotelo M.D. : 1955 BED: 1 DIS : STATUS: ADM IN TLOC: SPEC #: [id number] MAGAN: 08/08/17 STATUS: RES REQ #: [id number] RECD: 08/08/17-[address]: Mamie Johnston MD SOURCE: BLOOD ENTR: 08/08/17-[address] [facility] [address]: Shawn Gatica M.D. [facility]: Jeremy Maki M.D. ORDERED: BLOOD CULTURE Procedure Result Verified Site BLD CULT Preliminary 08/10/17-700 NO GROWTH TO DATE. Last 24 Hours Test 08/08/17 15:59 08/08/17 16:00 08/08/17 16:21 08/08/17 16:26 Bedside Hemoglobin 8.5 g/dl 7.8 g/dl Bedside Hematocrit 25 % 23 % Bedside Blood Gas pH (LAB) 7.39 Bedside Blood Gas pCO2 (LAB) 27 mmHg Bedside Blood Gas pO2 (LAB) 69 mmHg Bedside Blood Gas HCO3 (LAB) 16 meq/L Bedside Blood Gas Total CO2 17 mEq/l Bedside Blood Gas Base Excess (LAB) -9.0 meq/L Bedside Blood Gas O2 Saturation 94.0 % Bedside Sodium 140 mEq/L 139 mEq/L Bedside Potassium 4.2 mEq/L 4.3 mEq/L White Blood Count 8.73 K/uL Red Blood Count 2.77 M/uL Hemoglobin 7.9 g/dL Hematocrit 24.8 % Mean Corpuscular Volume 89.5 fL Mean Corpuscular Hemoglobin 28.5 pg Mean Corpuscular Hemoglobin Concent 31.9 g/dl Platelet Count 204 K/uL Mean Platelet Volume 9.2 fL Neutrophils (%) (Auto) 88.6 % Lymphocytes (%) (Auto) 2.7 % Monocytes (%) (Auto) 7.9 % Eosinophils (%) (Auto) 0.2 % Basophils (%) (Auto) 0.3 % Neutrophils # (Auto) 7.72 K/uL Lymphocytes # (Auto) 0.24 K/uL Monocytes # (Auto) 0.69 K/uL Eosinophils # (Auto) 0.02 K/uL Basophils # (Auto) 0.03 K/uL RDW Standard Deviation 62.2 fL RDW Coefficient of Variation 18.8 % Immature Granulocyte % (Auto) 0.3 % Immature Granulocyte # (Auto) 0.03 K/uL Anisocytosis PRESENT Acanthocytes 1+ Schistocytes 1+ Prothrombin Time 12.5 SECONDS Prothromb Time International Ratio 1.2 Activated Partial Thromboplast Time 29.6 SECONDS Partial Thromboplastin Ratio 1.1 Sodium Level 136 mmol/L Potassium Level 4.1 mmol/L Chloride Level 109 mmol/L Carbon Dioxide Level 18 mmol/L Anion Gap 9.0 mmol/L 17.0 mmol/L Blood Urea Nitrogen 9 mg/dl Creatinine 0.90 mg/dl Estimated GFR () 80.0 Estimated GFR (Non- 69.0 BUN/Creatinine Ratio 10.5 Random Glucose 77 mg/dl Calcium Level 8.9 mg/dl Magnesium Level 1.6 mg/dl Total Bilirubin 1.4 mg/dl Aspartate Amino Transf (AST/SGOT) 23 U/L Alanine Aminotransferase (ALT/SGPT) 16 U/L Alkaline Phosphatase 84 U/L Total Protein 7.5 gm/dl Albumin 3.1 gm/dl Globulin 4.4 gm/dl Albumin/Globulin Ratio 0.7 Bedside Lactic Acid Venous 2.71 mmol/L Bedside Chloride 109 mEq/L Bedside Total CO2 18 mEq/l Bedside Blood Urea Nitrogen 9 mg/dl Bedside Creatinine 0.8 mg/dl Bedside Glucose (other) 78 mg/dl Bedside Ionized Calcium (Eliza) 1.25 mmol/l Test 08/08/17 16:45 08/08/17 18:16 08/08/17 20:00 08/08/17 23:06 Ammonia 36.0 umol/L Troponin I 0.096 ng/ml 0.422 ng/ml Peritoneal Fluid Color YELLOW Peritoneal Fluid Appearance CLEAR Peritoneal Fluid WBC 166 /uL Peritoneal Fluid RBC < 3000 /uL Peritoneal Fld Mononuclear WBCs (%) 82.6 % Peritoneal Fld Polynuclear WBCs (%) 17.4 % Lactic Acid Level 2.2 mmol/L Test 08/08/17 23:11 08/09/17 01:38 08/09/17 02:28 08/09/17 05:50 Bedside Glucose (other) 134 mg/dl 160 mg/dl Urine Color YELLOW Urine Appearance CLEAR Urine pH 5.0 Urine Specific [place] 1.012 Urine Protein NEG Urine Glucose (UA) NEG Urine Ketones NEG Urine Occult Blood 1+ Urine Nitrite NEG Urine Bilirubin NEG Urine Urobilinogen NEG Urine Leukocyte Esterase NEG Urine WBC (Auto) 1-5 /hpf Urine RBC (Auto) 0-4 /hpf Urine Hyaline Casts (Auto) 1-5 /lpf Urine Epithelial Cells (Auto) 10-20 /lpf Urine Bacteria (Auto) NEG White Blood Count 12.69 K/uL Red Blood Count 2.61 M/uL Hemoglobin 7.6 g/dL Hematocrit 23.9 % Mean Corpuscular Volume 91.6 fL Mean Corpuscular Hemoglobin 29.1 pg Mean Corpuscular Hemoglobin Concent 31.8 g/dl Platelet Count 194 K/uL Mean Platelet Volume 8.6 fL Neutrophils (%) (Auto) 89.8 % Lymphocytes (%) (Auto) 3.2 % Monocytes (%) (Auto) 6.4 % Eosinophils (%) (Auto) 0.0 % Basophils (%) (Auto) 0.2 % Neutrophils # (Auto) 11.40 K/uL Lymphocytes # (Auto) 0.40 K/uL Monocytes # (Auto) 0.81 K/uL Eosinophils # (Auto) 0.00 K/uL Basophils # (Auto) 0.03 K/uL RDW Standard Deviation 62.7 fL RDW Coefficient of Variation 18.6 % Immature Granulocyte % (Auto) 0.4 % Immature Granulocyte # (Auto) 0.05 K/uL Hypochromasia PRESENT Acanthocytes 2+ Sodium Level 136 mmol/L Potassium Level 4.1 mmol/L Chloride Level 108 mmol/L Carbon Dioxide Level 18 mmol/L Anion Gap 10.0 mmol/L Blood Urea Nitrogen 13 mg/dl Creatinine 0.98 mg/dl Est Creatinine Clear Calc Drug Dose 52.1 ml/min Estimated GFR () 72.2 Estimated GFR (Non- 62.3 BUN/Creatinine Ratio 13.4 Random Glucose 146 mg/dl Lactic Acid Level 2.4 mmol/L Calcium Level 7.7 mg/dl Phosphorus Level 5.3 mg/dl Magnesium Level 2.0 mg/dl Total Bilirubin 1.6 mg/dl Aspartate Amino Transf (AST/SGOT) 43 U/L Alanine Aminotransferase (ALT/SGPT) 21 U/L Alkaline Phosphatase 68 U/L Total Protein 7.5 gm/dl Albumin 2.9 gm/dl Globulin 4.6 gm/dl Albumin/Globulin Ratio 0.6 Test 08/09/17 05:53 Venous Blood pH 7.20 Venous Blood Partial Pressure CO2 48 mmHg Venous Blood Partial Pressure O2 54 mmHg Venous Blood HCO3 18 mmol/L Venous Blood Oxygen Saturation 80.3 % Venous Blood Base Excess -9.2 mEq/L Troponin I 0.821 ng/ml Patient Name: JOSE FRANCISCO BRIZUELA Unit Number: [id number] Dictated: 03/27/18 1334 Transcribed: 08/09/171333 JA Printed Date/Time: [~ rep prt dt]/[~ rep prt tm] [~ rep ct labl] - [~ rep ct ivnm] [facility] [place] [address] Dictated: 08/09/[id number] Transcribed: 08/09/171333 JA Printed Date/Time: [~ rep prt dt]/[~ rep prt tm] [~ rep ct labl] - [~ rep ct ivnm] CHEST ONE VIEW PORTABLE CLINICAL HISTORY: Intubation. COMPARISON STUDY: Chest radiograph August 08, 2017 at 9:35 PM. FINDINGS: Tip of endotracheal tube is 2.9 cm above the daija. Tip of nasogastric tube is below the lower aspect of image but at least within the proximal body of the stomach. Right internal jugular central line is in place. There is no pneumothorax. There are trace bilateral pleural effusions. Interstitial pulmonary edema persists. This has slightly improved. Mild bibasilar opacities are unchanged. A suspected TIPS is incidentally noted. IMPRESSION: 1. Persistent, but slightly improved, pulmonary edema. 2. Small bilateral pleural fusions with mild bibasilar opacities. Electronically signed by: Kvng Hernandez M.D. 08/09/2017 1:37 PM Dictated Date/Time: 08/09/2017 1:34 PM The status of this report is Signed. Draft = Not yet reviewed or approved by Radiologist. Signed = Reviewed and approved by Radiologist. <AttendingPhy>Cachorro Sotelo M.D.</AttendingPhy> <FamilyPhy>Jeremy Maki M.D.</FamilyPhy> <PrimaryPhy>Jeremy Maki M.D.</PrimaryPhy> <UnitNumber> [id number]</UnitNumber> <VisitNumber>[id number]</VisitNumber> <PatientName> JOSE FRANCISCO BRIZUELA</PatientName> <DateOfBirth>1955</DateOfBirth> < Location>C[facility]</Location> <ServiceDate>08/08/17</ServiceDate> <MNE>ESINDI</MNE > <OrderingPhy>Shippert, Dontrell W D.O.</OrderingPhy> <OrderingPhyMNE>f rep ord dr perez</OrderingPhyMNE> <DictatingPhyMNE>f rep dict dr perez</DictatingPhyMNE> < CCListMNE>f rep ct malue</CCListMNE> <AdmittingPhyMNE>f pt admit dr perez</ AdmittingPhyMNE> <AttendingPhyMNE>f pt attend dr perez</AttendingPhyMNE> <ConsultingPhyMNE>f pt consult dr perez</ConsultingPhyMNE> <FamilyPhyMNE>f pt fam dr perez</FamilyPhyMNE> <OtherPhyMNE>f pt other dr perez</OtherPhyMNE> < PrimaryPhyMNE>f pt prim care dr perez</PrimaryPhyMNE> <ReferringPhyMNE>f pt referring dr perez</ReferringPhyMNE> Assessment & Plan 62-year-old female with cirrhosis, history of recurrent SBP, history of C difficile, status post TIPS, now with clinical picture of sepsis with respiratory failure requiring intubation. Peritoneal fluid not suggestive of recurrent infection, and no obvious focal infiltrate on chest x-ray. Agree with use of broad-spectrum antibiotics with vancomycin and Zosyn pending results of blood, sputum, and peritoneal fluid cultures. Would obtain procalcitonin. Will follow.
--- NOTE | 2017-08-09 09:39 | Gastrointestinal Consultation ---
Gastrointestinal Consultation Date of Consultation: Aug 09, 2017 Attending Physician: Dr. Momin Consulting Physician: Dr. Gale Reason for Consultation: question spontaneous bacterial peritonitis History of Present Illness Patient is a 62 year old female with HepC/ETOH cirrhosis, without alcohol intake since Feb 13, 2017. She underwent TIPs in June 2017. She presented to the ED yesterday for SOB. GI is consulted for question of SBP. On arrival, Cr 0.98, T Bili 1.6, Na, 136, INR 1.2. Lactic acid is elevated at 2.4 and troponin I is elevated and increasing at 0.8. She underwent dx paracentesis last evening with small amt of ascites; WBC 136. She is tachycardic today at 110/min. She is admitted to the ICU where she was intubated but she has some agitation and self extubated when I was arriving in her room. She just finished an echo bubble study (results not yet available). She is able to take po and is being given rifaximin and lactulose. She is alert , but appears to be confused/agitated and is not able to answer questions. Decompensations Ascites: minimal on US on arrival HE: maintained on lactulose Varices: none Screenings MELD: 10 Varices: UTD HCC: UTD Immunization: status unknown CT ABD/Pelvis 06/07/17: Cirrhosis with manifestations of portal hypertension including large volume abdominal and pelvic ascites and collateral formation. No bowel obstruction. Subpleural right lower lobe opacity which favors atelectasis. Hyperdense material within the gallbladder which favors stones. Sludge could appear similar. No evidence for acute cholecystitis. Chest XR 08/08/17: congestive failure with small bilateral pleural effusions. Past Medical/Surgical History BRADLEY, ambulatory dysfunction, COPD, SOB, hypotension, hypomagnesemia, respiratory failure, sepsis, anemia Past Medical History: 1. COPD 2. Depression 3. ETOH cirrhosis 4. Hep C Past Surgical History: (1) H/O exploratory laparotomy (2) History of appendectomy (3) History of tubal ligation 4. Multiple paracenteses Family History FH: dementia FATHER Social History Smoking Status: Current Every Day Smoker (1/2 pack per day since 1970) Alcohol Use: none, heavy Drug Use: none Marital Status: in relationship Housing Status: lives with family Allergies Coded Allergies: No Known Allergies (Unverified , 08/08/17) Current Medications Home Meds and Scripts Medications Dose Route/Sig Max Daily Dose Days Date Category Cipro (Ciprofloxacin Hcl) 500 Mg Tab 500 Mg PO DAILY 08/08/17 Reported Midodrine HCl (Midodrine) 2.5 Mg Tab 10 Mg PO TID@0700,1300,1800 10 06/08/17 Rx Probiotic (Probiotic Product) 1 Cap Cap 1 Cap PO DAILY 06/07/17 Reported Xifaxan (Rifaximin) 550 Mg Tab 1 Tab PO BID 14 06/07/17 Reported Gabapentin 300 Mg Cap 300 Mg PO TID 06/07/17 Reported Folic Acid 1 Mg Tab 1 Mg PO QAM 06/07/17 Reported Chronulac (Lactulose) 10 Gm/15 Ml Syrp 30 Gm PO BID 06/07/17 Reported Oxygen Gas 3 Liters NA UD 05/03/17 Reported Levothyroxine Sodium 25 Mcg Tab 25 Mcg PO DAILY 05/03/17 Reported Citalopram Hydrobromide (Citalopram) 20 Mg Tab 20 Mg PO DAILY 05/03/17 Reported Sodium Bicarbonate 650 Mg Tab 650 Mg PO TID 05/03/17 Reported Tramadol HCl 50 Mg Tab 50 Mg PO Q6H PRN 05/03/17 Reported Ondansetron HCl (Ondansetron) 4 Mg Tab 4 Mg PO Q8 PRN 05/03/17 Reported Vitamin B1 (Thiamine Mononitrate) 100 Mg Tab 100 Mg PO QAM 05/03/17 Reported Ventolin Hfa (Albuterol) 200 Puffs/51293 Mcg Aers 2 Puffs INH Q4H PRN 10/25/16 Reported Levsin (Hyoscyamine Sulfate) 0.125 Mg Tab 0.125 Mg PO ACHS PRN 10/25/16 Reported Review of Systems No able to obtain ROS Physical Exam Date Time Temp Pulse Resp B/P (MAP) Pulse Ox O2 Delivery O2 Flow Rate FiO2 08/09/17 08:31 36.1 111 21 91/61 (71) 94 Mechanical Ventilator 30 08/09/17 08:16 36.1 111 21 92/61 (71) 94 Mechanical Ventilator 30 08/09/17 08:00 36.1 113 19 94/62 (73) 92 Mechanical Ventilator 30 08/09/17 07:25 30 08/09/17 07:15 30 08/09/17 06:31 36.0 104 20 81/47 (52) 99 08/09/17 06:16 36.0 103 21 99/51 (62) 99 08/09/17 05:46 35.9 102 18 86/67 (74) 98 08/09/17 05:31 35.9 102 20 104/55 (75) 98 08/09/17 05:30 40 08/09/17 05:16 36.0 101 18 91/62 (74) 98 08/09/17 05:01 36.0 104 20 89/60 (67) 98 08/09/17 04:46 36.0 102 20 84/56 (61) 98 08/09/17 04:31 36.0 101 20 75/53 (58) 98 08/09/17 04:16 36.0 101 20 71/53 (60) 99 08/09/17 04:01 36.0 103 15 90/60 (67) 97 08/09/17 04:00 40 08/09/17 04:00 96 Mechanical Ventilator 40 08/09/17 03:46 36.0 103 19 88/44 (77) 96 08/09/17 03:31 36.1 103 19 81/55 (60) 96 08/09/17 03:16 36.1 104 16 77/54 (63) 97 08/09/17 03:10 36.1 106 21 81/57 (61) 97 08/09/17 03:01 36.1 107 20 78/55 (60) 97 08/09/17 02:48 36.1 114 21 92/64 (69) 94 08/09/17 02:31 36.1 108 21 85/56 (75) 96 08/09/17 02:30 40 08/09/17 02:16 36.1 107 20 83/56 (60) 96 08/09/17 02:02 36.1 109 20 107/54 (82) 95 08/09/17 01:46 36.1 107 20 87/59 (63) 96 08/09/17 01:32 36.1 106 20 78/34 (45) 97 08/09/17 01:16 36.1 112 19 88/60 (77) 94 08/09/17 01:03 36.0 110 22 95/44 (56) 96 3/27/18 00:47 36.0 109 21 93/45 (55) 94 08/09/17 00:31 36.0 107 20 92/61 (66) 95 08/09/17 00:16 36.0 106 20 89/57 (61) 95 08/09/17 00:01 36.0 107 23 81/60 (72) 95 08/08/17 23:59 95 Mechanical Ventilator 40 08/08/17 23:59 40 08/08/17 23:46 36.1 105 21 77/53 (67) 97 08/08/17 23:33 36.2 109 21 63/42 (52) 96 08/08/17 23:29 40 08/08/17 23:02 36.2 110 21 76/40 (65) 94 08/08/17 22:46 36.2 107 22 75/55 (63) 97 08/08/17 22:45 36.2 107 21 73/49 (51) 98 08/08/17 22:16 36.3 108 19 71/44 (48) 94 08/08/17 22:12 36.4 109 20 75/47 (61) 94 08/08/17 22:07 36.5 110 19 75/46 (62) 95 08/08/17 22:01 36.6 111 19 77/49 (52) 94 08/08/17 21:56 36.7 111 19 89/40 (53) 94 08/08/17 21:51 36.7 113 19 71/54 (59) 94 08/08/17 21:47 36.8 114 17 80/58 (67) 92 08/08/17 21:37 36.8 113 19 80/52 (67) 93 08/08/17 21:31 36.9 113 18 78/59 (68) 94 08/08/17 21:26 36.9 113 18 55/28 (35) 93 08/08/17 21:22 36.9 113 17 81/64 (66) 92 08/08/17 21:18 37.0 113 18 85/63 (65) 92 08/08/17 21:10 37.1 113 18 74/42 (59) 91 08/08/17 21:03 37.1 115 19 58/32 (35) 92 08/08/17 21:02 37.1 114 18 71/52 (60) 92 08/08/17 20:13 37.5 118 18 90/54 (66) 90 08/08/17 20:02 37.6 119 19 81/60 (64) 90 08/08/17 20:00 37.6 116 18 100/78 90 Mechanical Ventilator 40 08/08/17 20:00 37.6 118 19 89 08/08/17 19:45 40 08/08/17 19:38 120 22 100/28 98 08/08/17 17:30 122 30 119/56 95 CPAP 08/08/17 16:59 120 26 135/80 95 BiPAP 08/08/17 16:30 119 08/08/17 16:27 98 CPAP 08/08/17 16:13 120 98 30 08/08/17 16:00 Nasal Cannula 08/08/17 15:58 38.1 117 20 99/60 97 Nasal Cannula 3.0 General Appearance: + mild distress Neck: no JVD Respiratory/Chest: lungs clear, + decreased breath sounds Cardiovascular: no JVD, no murmur, + tachycardia Abdomen: non tender, soft Extremities: non-tender, no pedal edema Neurologic/Psych: alert, + pertinent finding (see HPI) Skin: normal color no ascites on exam Laboratory Results Last 24 Hours Test 08/08/17 15:59 08/08/17 16:00 08/08/17 16:21 08/08/17 16:26 Bedside Hemoglobin 8.5 g/dl 7.8 g/dl Bedside Hematocrit 25 % 23 % Bedside Blood Gas pH (LAB) 7.39 Bedside Blood Gas pCO2 (LAB) 27 mmHg Bedside Blood Gas pO2 (LAB) 69 mmHg Bedside Blood Gas HCO3 (LAB) 16 meq/L Bedside Blood Gas Total CO2 17 mEq/l Bedside Blood Gas Base Excess (LAB) -9.0 meq/L Bedside Blood Gas O2 Saturation 94.0 % Bedside Sodium 140 mEq/L 139 mEq/L Bedside Potassium 4.2 mEq/L 4.3 mEq/L White Blood Count 8.73 K/uL Red Blood Count 2.77 M/uL Hemoglobin 7.9 g/dL Hematocrit 24.8 % Mean Corpuscular Volume 89.5 fL Mean Corpuscular Hemoglobin 28.5 pg Mean Corpuscular Hemoglobin Concent 31.9 g/dl Platelet Count 204 K/uL Mean Platelet Volume 9.2 fL Neutrophils (%) (Auto) 88.6 % Lymphocytes (%) (Auto) 2.7 % Monocytes (%) (Auto) 7.9 % Eosinophils (%) (Auto) 0.2 % Basophils (%) (Auto) 0.3 % Neutrophils # (Auto) 7.72 K/uL Lymphocytes # (Auto) 0.24 K/uL Monocytes # (Auto) 0.69 K/uL Eosinophils # (Auto) 0.02 K/uL Basophils # (Auto) 0.03 K/uL RDW Standard Deviation 62.2 fL RDW Coefficient of Variation 18.8 % Immature Granulocyte % (Auto) 0.3 % Immature Granulocyte # (Auto) 0.03 K/uL Anisocytosis PRESENT Acanthocytes 1+ Schistocytes 1+ Prothrombin Time 12.5 SECONDS Prothromb Time International Ratio 1.2 Activated Partial Thromboplast Time 29.6 SECONDS Partial Thromboplastin Ratio 1.1 Sodium Level 136 mmol/L Potassium Level 4.1 mmol/L Chloride Level 109 mmol/L Carbon Dioxide Level 18 mmol/L Anion Gap 9.0 mmol/L 17.0 mmol/L Blood Urea Nitrogen 9 mg/dl Creatinine 0.90 mg/dl Estimated GFR () 80.0 Estimated GFR (Non- 69.0 BUN/Creatinine Ratio 10.5 Random Glucose 77 mg/dl Calcium Level 8.9 mg/dl Magnesium Level 1.6 mg/dl Total Bilirubin 1.4 mg/dl Aspartate Amino Transf (AST/SGOT) 23 U/L Alanine Aminotransferase (ALT/SGPT) 16 U/L Alkaline Phosphatase 84 U/L Total Protein 7.5 gm/dl Albumin 3.1 gm/dl Globulin 4.4 gm/dl Albumin/Globulin Ratio 0.7 Bedside Lactic Acid Venous 2.71 mmol/L Bedside Chloride 109 mEq/L Bedside Total CO2 18 mEq/l Bedside Blood Urea Nitrogen 9 mg/dl Bedside Creatinine 0.8 mg/dl Bedside Glucose (other) 78 mg/dl Bedside Ionized Calcium (Eliza) 1.25 mmol/l Test 08/08/17 16:45 08/08/17 18:16 08/08/17 20:00 08/08/17 23:06 Ammonia 36.0 umol/L Troponin I 0.096 ng/ml 0.422 ng/ml Peritoneal Fluid Color YELLOW Peritoneal Fluid Appearance CLEAR Peritoneal Fluid WBC 166 /uL Peritoneal Fluid RBC < 3000 /uL Peritoneal Fld Mononuclear WBCs (%) 82.6 % Peritoneal Fld Polynuclear WBCs (%) 17.4 % Lactic Acid Level 2.2 mmol/L Test 08/08/17 23:11 08/09/17 01:38 08/09/17 02:28 08/09/17 05:50 Bedside Glucose (other) 134 mg/dl 160 mg/dl Urine Color YELLOW Urine Appearance CLEAR Urine pH 5.0 Urine Specific [place] 1.012 Urine Protein NEG Urine Glucose (UA) NEG Urine Ketones NEG Urine Occult Blood 1+ Urine Nitrite NEG Urine Bilirubin NEG Urine Urobilinogen NEG Urine Leukocyte Esterase NEG Urine WBC (Auto) 1-5 /hpf Urine RBC (Auto) 0-4 /hpf Urine Hyaline Casts (Auto) 1-5 /lpf Urine Epithelial Cells (Auto) 10-20 /lpf Urine Bacteria (Auto) NEG White Blood Count 12.69 K/uL Red Blood Count 2.61 M/uL Hemoglobin 7.6 g/dL Hematocrit 23.9 % Mean Corpuscular Volume 91.6 fL Mean Corpuscular Hemoglobin 29.1 pg Mean Corpuscular Hemoglobin Concent 31.8 g/dl Platelet Count 194 K/uL Mean Platelet Volume 8.6 fL Neutrophils (%) (Auto) 89.8 % Lymphocytes (%) (Auto) 3.2 % Monocytes (%) (Auto) 6.4 % Eosinophils (%) (Auto) 0.0 % Basophils (%) (Auto) 0.2 % Neutrophils # (Auto) 11.40 K/uL Lymphocytes # (Auto) 0.40 K/uL Monocytes # (Auto) 0.81 K/uL Eosinophils # (Auto) 0.00 K/uL Basophils # (Auto) 0.03 K/uL RDW Standard Deviation 62.7 fL RDW Coefficient of Variation 18.6 % Immature Granulocyte % (Auto) 0.4 % Immature Granulocyte # (Auto) 0.05 K/uL Hypochromasia PRESENT Acanthocytes 2+ Sodium Level 136 mmol/L Potassium Level 4.1 mmol/L Chloride Level 108 mmol/L Carbon Dioxide Level 18 mmol/L Anion Gap 10.0 mmol/L Blood Urea Nitrogen 13 mg/dl Creatinine 0.98 mg/dl Est Creatinine Clear Calc Drug Dose 52.1 ml/min Estimated GFR () 72.2 Estimated GFR (Non- 62.3 BUN/Creatinine Ratio 13.4 Random Glucose 146 mg/dl Lactic Acid Level 2.4 mmol/L Calcium Level 7.7 mg/dl Phosphorus Level 5.3 mg/dl Magnesium Level 2.0 mg/dl Total Bilirubin 1.6 mg/dl Aspartate Amino Transf (AST/SGOT) 43 U/L Alanine Aminotransferase (ALT/SGPT) 21 U/L Alkaline Phosphatase 68 U/L Total Protein 7.5 gm/dl Albumin 2.9 gm/dl Globulin 4.6 gm/dl Albumin/Globulin Ratio 0.6 Test 08/09/17 05:53 Venous Blood pH 7.20 Venous Blood Partial Pressure CO2 48 mmHg Venous Blood Partial Pressure O2 54 mmHg Venous Blood HCO3 18 mmol/L Venous Blood Oxygen Saturation 80.3 % Venous Blood Base Excess -9.2 mEq/L Troponin I 0.821 ng/ml CXR 08/08/17: 1. Interval placement of endotracheal tube approximately 3 cm above the daija 2. Interval placement of a nasogastric tube which is positioned within the stomach 3. No evidence of pneumothorax status post placement of a right internal jugular central venous catheter 4. Radiographic evidence of congestive failure with small bilateral pleural effusions Impression Patient is a 62 year old female with ETOH/Hep C cirrhosis S/P recent TIPs who presented for SOB and per critical care has takotsubo cardiomyopathy. She does not have evidence of SBP. Plan 1. Will review results of echo bubble study when available. 2. Please continue lactulose/rifaximin. 3. TIPs study to verify patency (doppler US of hepatic veins and TIPs). 4. Appreciate critical care and primary services management of takotsubo and COPD. 5. Will continue to follow. Addendum after US: 1. A TIPS catheter is in place as detailed above. The TIPS is patent. 2. The hepatic veins and portal veins are patent as detailed above. 3. Cirrhotic liver morphology. Current illness w/o evidence of further decompensation of her liver disease. GI will watch peripherally. Please notify us if new/worrisome GI/Liver related issues. I performed a history and physical examination of the patient, including specifically on physical exam - no abdominal tenderness. I have discussed the patient's management with FATUMA Reeves. Please refer to the nurse practitioner's note for the documented findings and plan of care. Patieht with liver cirrhosis s/p TIPs last month for poorly controlled ascites, now no significant ascites and tap showed no SBP. Admitted with hypoxic resp failure and CXR showed congested lungs, Echo showed Diastolic and mild systolic CHF. Her liver cirrhosis is compensated now. Needs Rifaximin and Lactulose for HE prevention and would keep low dose diuretics to avoid fluid overload from TIPs. Recall if any questions or concerns.
[2017-08-09] MEDS ORDERED: VANCOMYCIN IV 1,000 MG in SODIUM CHLORIDE 0.9% 250ML 250 ML IV SCH (10:00)
[2017-08-09] MEDS ORDERED: GLUCOSE 10 TABS/TUBE PO PRN (10:15)
[2017-08-09] MEDS ORDERED: GLUCOSE 40% GEL 15 GM TUBE PO PRN (10:15)
[2017-08-09] MEDS ORDERED: GLUCAGON FOR INJ 1 MG VIAL SQ PRN (10:15)
[2017-08-09] MEDS ORDERED: DEXTROSE 50% 50 ML SYR IV PRN (10:15)
[2017-08-09] MEDS ORDERED: ENOXAPARIN 30 MG/0.3 ML SYR SQ SCH (11:00)
[2017-08-09] MEDS: PHENYLEPHRINE HCL INJ 20 MG in DEXTROSE 5% 500ML 500 ML IV PRN ×3 (11:30→20:39)
[2017-08-09 11:54] LABS: INFLUENZA B PCR Neg for Influ B (NEG)
[2017-08-09] MEDS: INSULIN ASPART 100 UNITS/ML 3 ML PEN SC SCH ×2 (11:54→17:12)
[2017-08-09 11:56] LABS: INFLUENZA A PCR POS for Influ A (NEG)
[2017-08-09] MEDS: PANTOprazole INJ 40 MG in SYRINGE 0 ML IV SCH (12:06)
--- NOTE | 2017-08-09 12:17 | Procedure Note ---
Procedure Note Date of Service Aug 08, 2017. Procedure Note Critical Care Medicine Procedure Date: August 08, 2017 Procedure: Paracentesis Pre-procedure Diagnosis: Sepsis, febrile illness, concern for spontaneous bacterial peritonitis Post-procedure Diagnosis: same as above Prior to Procedure: Informed Consent: The risks, benefits, indications, potential complications, and alternatives were explained to the family, significant other and informed consent obtained. Attending Staff: Merissa San DO Resident/Physician Ruling Machine Set Up Operator: Rajeev Guerrero Indications: Patient is a 62-year-old female with a history of alcoholic cirrhosis as well as recurrent ascites who presented to the emergency department with hypoxic respiratory failure and febrile illness with concern for SBP. The identity of the patient was confirmed and a bedside time out was performed. Description of Procedure: Patient positioned, the left lower quadrant of the abdomen was prepped and draped in usual sterile fashion. Ultrasound guidance was used and appropriate fluid pocket was identified. 2 cc of 1% Lidocaine without epinephrine was used to anesthetize the area. A needle was introduced into the peritoneal space and fluid was removed, via dynamic ultrasound guidance. Total Fluid Removed: 35 ml Color of Fluid: Straw colored Sent for: Gram stain, culture, cell count Complications: None Findings: Uncomplicated paracentesis with simple appearing fluid Estimated blood loss: Trace Critical Care Medicine Point of Care Bedside Ultrasound Procedure: Procedural Ultrasound Procedure Date: August 08, 2017 Indication: Paracentesis Attending: Orlando San DO Resident/Physician Ruling Machine Set Up Operator: Rajeev Guerrero Organs Examined: Right and left lower abdominal quadrants, bowel and bladder both visualized Objects visualized: Introducer needle Impression: A fluid pocket in the left lower quadrant with 2 cm of simple- appearing peritoneal fluid was identified. Dynamic procedural guidance was employed and the needle was visualized entering the abdominal cavity without contacting bowel. Plan: Follow-up paracentesis studies Images obtained are saved for permanent record
[2017-08-09] MEDS ORDERED: SODIUM BICARB 8.4% INJ 50 MEQ/50 ML SYR IV ONE (12:21)
[2017-08-09] MEDS ORDERED: RAPID SEQUENCE INDUCTION BAG ONE (12:21)
[2017-08-09] MEDS ORDERED: MIDAZOLAM HCL 5 MG/ML 1 ML VIAL IV STA (12:42)
[2017-08-09] MEDS ORDERED: OSELTAMIVIR PHOSPHATE SUSP 30 MG/5 ML UDP PO ONE (12:45)
--- NOTE | 2017-08-09 12:49 | Critical Care Progress Note ---
Critical Care Progress Note Date of Service Aug 09, 2017. ICU Day ICU Day Number: [address] San Subjective No overnight events. Patient self extubated this morning, attempted to remain extubated, patient did not have significant improvement in mental status and subsequently led to hypoxic hypercarbic respiratory failure requiring reintubation. Echo performed early this morning, results of which reveal stress-induced cardiomyopathy Patient found to have a influenza A positive started on Tamiflu Objective General: CAM positive, RASS score +1 at times, -3 at others. nontoxic. Skin: Warm, dry, Head: Atraumatic Ears, nose, mouth and throat: Endotracheal tube in place Cardiovascular: Normal peripheral perfusion, S1-S2 no murmurs Respiratory: no respiratory distress, scattered rhonchi bilaterally Gastrointestinal: Non distended, nontender Musculoskeletal: No deformity, Assessment & Plan Reason Critically Ill: Acute hypercarbic hypoxic respiratory failure, influenza A, stress-induced cardiomyopathy PLAN: Neuro: Acute encephalopathy * Trend ammonia tomorrow morning * Intermittent bolus sedation as needed * Soft restraints as needed given previous unplanned extubation Resp: Acute hypercarbic hypoxic respiratory failure * Secondary to influenza A History COPD * Aggressive pulmonary toilet CV: Stress-induced cardiomyopathy * Likely secondary to influenza A * Convert nor epi to phenylephrine for blood pressure support * Wean vasoactive's as tolerated Fluids/Renal: Discontinue midodrine given phenylephrine support * Creatinine appears near baseline * Goal fluid balance net even ID: Order procalcitonin, continue broad-spectrum antibiotics for 48-72 hours * Added Tamiflu GI/Nutrition: Reviewed GI recommendations * Started on PPI * Duplex ultrasound to evaluate patency of TIPS ordered by GI Heme: Baseline anemia * Lovenox 30 mg for DVT prophylaxis Endocrine: ICU hyperglycemia protocol I have personally spent 65 minutes of critical care time in the direct management of this patient. This is a life/limb threatening event. This includes time spent evaluating patient, direct bedside care, chart review, placing orders, interpretation of diagnostic studies, discussion with consultants, patient, and/or family members regarding treatment decisions, as well as other required patient management activities. This time is exclusive of all separately billable procedures, and teaching time and separate from and in addition to any other critical care service time. Data Medications: Current Inpatient Medications Medications (Trade) Dose Ordered Sig/Shelby Route Start Time Stop Time Status Last Admin Dose Admin Ondansetron HCl (Zofran Inj) 4 mg Q6H PRN IV 08/08/17 18:00 09/07/17 17:59 Vancomycin HCl 1000 mg/Sodium Chloride 270 ml @ 125 mls/hr Q14H IV 08/09/17 10:00 08/10/17 23:59 08/09/17 10:35 125 MLS/HR Miscellaneous Information (Consult) 1 ea UD PRN N/A 08/08/17 18:00 09/07/17 17:59 Miscellaneous Information (Consult) 1 ea UD PRN N/A 08/08/17 18:00 09/07/17 17:59 Methylprednisolone Sodium Succinate 40 mg/Syringe 0.64 ml @ 1.5 mls/min Q8H IV 08/08/17 22:00 09/07/17 21:59 08/09/17 06:00 1.5 MLS/MIN Citalopram Hydrobromide (celeXA TAB) 20 mg DAILY PO 08/09/17 09:00 09/08/17 08:59 08/09/17 07:52 20 MG Folic Acid (Folvite Tab) 1 mg QAM PO 08/09/17 09:00 09/08/17 08:59 08/09/17 07:53 1 MG Gabapentin (Neurontin Cap) 300 mg TID PO 08/08/17 21:00 09/07/17 20:59 08/09/17 07:53 300 MG Hyoscyamine Sulfate (Levsin Tab) 0.125 mg ACHS PRN PO 08/08/17 18:15 09/07/17 18:14 Levothyroxine Sodium (Synthroid Tab) 25 mcg DAILYBB PO 08/09/17 06:00 09/08/17 06:59 08/09/17 06:00 25 MCG Rifaximin (Xifaxan Tab) 550 mg BID PO 08/08/17 21:00 09/07/17 20:59 08/09/17 07:53 550 MG Sodium Bicarbonate (Sodium Bicarbonate Tab) 650 mg TID PO 08/08/17 21:00 09/07/17 20:59 08/09/17 07:53 650 MG Lactulose (Chronulac Syrup) 30 gm TID PO 08/08/17 21:00 09/07/17 20:59 08/09/17 07:53 30 GM Piperacillin Sod/ Tazobactam Sod 3.375 gm/Dextrose 115 ml @ 28.75 mls/ hr Q8H IV 08/09/17 02:00 08/11/17 01:59 08/09/17 10:35 28.75 MLS/HR Levalbuterol (Xopenex Hfa Inhaler) 2 puffs QID INH 08/09/17 09:00 09/08/17 08:59 08/09/17 07:15 2 PUFFS Midazolam HCl (Versed Inj) 2 mg Q1H PRN IV 08/09/17 02:30 09/08/17 02:29 08/09/17 07:51 2 MG Fentanyl Citrate (Fentanyl Inj) 50 mcg Q1H PRN IV 08/09/17 03:00 08/23/17 02:59 08/09/17 04:58 50 MCG Nicotine (Nicoderm Cq 7 Mg Patch) 1 patch QAM TD 08/09/17 09:00 09/08/17 08:59 08/09/17 07:55 1 PATCH Miscellaneous (Remove Nicoderm Patch) 1 ea HS N/A 08/09/17 21:00 09/08/17 20:59 Pantoprazole Sodium 40 mg/ Syringe 10 ml @ 5 mls/min DAILY@11 IV 08/09/17 11:00 09/08/17 10:59 Phenylephrine HCl 20 mg/Dextrose 502 ml @ 0 mls/hr Q0M PRN IV 08/09/17 10:15 09/08/17 10:14 Insulin Aspart (novoLOG ASPART) SLIDING SCALE If C... Q6 SC 08/09/17 12:00 09/08/17 11:59 Glucose (Glucose 40% Gel) 15-30 GRAMS 15 GRAMS... UD PRN PO 08/09/17 10:15 09/08/17 10:14 Glucose (Glucose Chew Tab) 4-8 Tablets 4 Tabl... UD PRN PO 08/09/17 10:15 09/08/17 10:14 Dextrose (Dextrose 50% 50ML Syringe) 25-50ML OF 50% DW IV FOR... UD PRN IV 08/09/17 10:15 09/08/17 10:14 Glucagon (Glucagon Inj) 1 mg UD PRN SQ 08/09/17 10:15 09/08/17 10:14 Enoxaparin Sodium (Lovenox Inj) 30 mg Q24H SQ 08/09/17 11:00 09/08/17 10:59 08/09/17 11:52 30 MG Vital Signs: Date Time Temp Pulse Resp B/P (MAP) Pulse Ox O2 Delivery O2 Flow Rate FiO2 08/09/17 10:00 36.2 116 19 106/72 (83) 96 Nasal Cannula 4.0 08/09/17 08:31 36.1 111 21 91/61 (71) 94 Mechanical Ventilator 30 08/09/17 08:16 36.1 111 21 92/61 (71) 94 Mechanical Ventilator 30 08/09/17 08:00 Mechanical Ventilator 30 08/09/17 08:00 30 08/09/17 08:00 36.1 113 19 94/62 (73) 92 Mechanical Ventilator 30 08/09/17 07:25 30 08/09/17 07:15 30 08/09/17 06:31 36.0 104 20 81/47 (52) 99 08/09/17 06:16 36.0 103 21 99/51 (62) 99 08/09/17 05:46 35.9 102 18 86/67 (74) 98 08/09/17 05:31 35.9 102 20 104/55 (75) 98 08/09/17 05:30 40 08/09/17 05:16 36.0 101 18 91/62 (74) 98 08/09/17 05:01 36.0 104 20 89/60 (67) 98 08/09/17 04:46 36.0 102 20 84/56 (61) 98 08/09/17 04:31 36.0 101 20 75/53 (58) 98 08/09/17 04:16 36.0 101 20 71/53 (60) 99 08/09/17 04:01 36.0 103 15 90/60 (67) 97 08/09/17 04:00 40 08/09/17 04:00 96 Mechanical Ventilator 40 08/09/17 03:46 36.0 103 19 88/44 (77) 96 08/09/17 03:31 36.1 103 19 81/55 (60) 96 08/09/17 03:16 36.1 104 16 77/54 (63) 97 08/09/17 03:10 36.1 106 21 81/57 (61) 97 08/09/17 03:01 36.1 107 20 78/55 (60) 97 08/09/17 02:48 36.1 114 21 92/64 (69) 94 08/09/17 02:31 36.1 108 21 85/56 (75) 96 08/09/17 02:30 40 08/09/17 02:16 36.1 107 20 83/56 (60) 96 08/09/17 02:02 36.1 109 20 107/54 (82) 95 08/09/17 01:46 36.1 107 20 87/59 (63) 96 08/09/17 01:32 36.1 106 20 78/34 (45) 97 08/09/17 01:16 36.1 112 19 88/60 (77) 94 08/09/17 01:03 36.0 110 22 95/44 (56) 96 08/09/17 00:47 36.0 109 21 93/45 (55) 94 08/09/17 00:31 36.0 107 20 92/61 (66) 95 08/09/17 00:16 36.0 106 20 89/57 (61) 95 08/09/17 00:01 36.0 107 23 81/60 (72) 95 08/08/17 23:59 95 Mechanical Ventilator 40 08/08/17 23:59 40 08/08/17 23:46 36.1 105 21 77/53 (67) 97 08/08/17 23:33 36.2 109 21 63/42 (52) 96 08/08/17 23:29 40 08/08/17 23:02 36.2 110 21 76/40 (65) 94 08/08/17 22:46 36.2 107 22 75/55 (63) 97 08/08/17 22:45 36.2 107 21 73/49 (51) 98 08/08/17 22:16 36.3 108 19 71/44 (48) 94 08/08/17 22:12 36.4 109 20 75/47 (61) 94 08/08/17 22:07 36.5 110 19 75/46 (62) 95 08/08/17 22:01 36.6 111 19 77/49 (52) 94 08/08/17 21:56 36.7 111 19 89/40 (53) 94 08/08/17 21:51 36.7 113 19 71/54 (59) 94 08/08/17 21:47 36.8 114 17 80/58 (67) 92 08/08/17 21:37 36.8 113 19 80/52 (67) 93 08/08/17 21:31 36.9 113 18 78/59 (68) 94 08/08/17 21:26 36.9 113 18 55/28 (35) 93 08/08/17 21:22 36.9 113 17 81/64 (66) 92 08/08/17 21:18 37.0 113 18 85/63 (65) 92 08/08/17 21:10 37.1 113 18 74/42 (59) 91 08/08/17 21:03 37.1 115 19 58/32 (35) 92 08/08/17 21:02 37.1 114 18 71/52 (60) 92 08/08/17 20:13 37.5 118 18 90/54 (66) 90 08/08/17 20:02 37.6 119 19 81/60 (64) 90 08/08/17 20:00 37.6 116 18 100/78 90 Mechanical Ventilator 40 08/08/17 20:00 37.6 118 19 89 08/08/17 19:45 40 08/08/17 19:38 120 22 100/28 98 08/08/17 17:30 122 30 119/56 95 CPAP 08/08/17 16:59 120 26 135/80 95 BiPAP 08/08/17 16:30 119 08/08/17 16:27 98 CPAP 08/08/17 16:13 120 98 30 08/08/17 16:00 Nasal Cannula 08/08/17 15:58 38.1 117 20 99/60 97 Nasal Cannula 3.0 Laboratory Results: Last 24 Hours Test 08/08/17 15:59 08/08/17 16:00 08/08/17 16:21 08/08/17 16:26 Bedside Hemoglobin 8.5 g/dl 7.8 g/dl Bedside Hematocrit 25 % 23 % Bedside Blood Gas pH (LAB) 7.39 Bedside Blood Gas pCO2 (LAB) 27 mmHg Bedside Blood Gas pO2 (LAB) 69 mmHg Bedside Blood Gas HCO3 (LAB) 16 meq/L Bedside Blood Gas Total CO2 17 mEq/l Bedside Blood Gas Base Excess (LAB) -9.0 meq/L Bedside Blood Gas O2 Saturation 94.0 % Bedside Sodium 140 mEq/L 139 mEq/L Bedside Potassium 4.2 mEq/L 4.3 mEq/L White Blood Count 8.73 K/uL Red Blood Count 2.77 M/uL Hemoglobin 7.9 g/dL Hematocrit 24.8 % Mean Corpuscular Volume 89.5 fL Mean Corpuscular Hemoglobin 28.5 pg Mean Corpuscular Hemoglobin Concent 31.9 g/dl Platelet Count 204 K/uL Mean Platelet Volume 9.2 fL Neutrophils (%) (Auto) 88.6 % Lymphocytes (%) (Auto) 2.7 % Monocytes (%) (Auto) 7.9 % Eosinophils (%) (Auto) 0.2 % Basophils (%) (Auto) 0.3 % Neutrophils # (Auto) 7.72 K/uL Lymphocytes # (Auto) 0.24 K/uL Monocytes # (Auto) 0.69 K/uL Eosinophils # (Auto) 0.02 K/uL Basophils # (Auto) 0.03 K/uL RDW Standard Deviation 62.2 fL RDW Coefficient of Variation 18.8 % Immature Granulocyte % (Auto) 0.3 % Immature Granulocyte # (Auto) 0.03 K/uL Anisocytosis PRESENT Acanthocytes 1+ Schistocytes 1+ Prothrombin Time 12.5 SECONDS Prothromb Time International Ratio 1.2 Activated Partial Thromboplast Time 29.6 SECONDS Partial Thromboplastin Ratio 1.1 Sodium Level 136 mmol/L Potassium Level 4.1 mmol/L Chloride Level 109 mmol/L Carbon Dioxide Level 18 mmol/L Anion Gap 9.0 mmol/L 17.0 mmol/L Blood Urea Nitrogen 9 mg/dl Creatinine 0.90 mg/dl Estimated GFR () 80.0 Estimated GFR (Non- 69.0 BUN/Creatinine Ratio 10.5 Random Glucose 77 mg/dl Calcium Level 8.9 mg/dl Magnesium Level 1.6 mg/dl Total Bilirubin 1.4 mg/dl Aspartate Amino Transf (AST/SGOT) 23 U/L Alanine Aminotransferase (ALT/SGPT) 16 U/L Alkaline Phosphatase 84 U/L Total Protein 7.5 gm/dl Albumin 3.1 gm/dl Globulin 4.4 gm/dl Albumin/Globulin Ratio 0.7 Bedside Lactic Acid Venous 2.71 mmol/L Bedside Chloride 109 mEq/L Bedside Total CO2 18 mEq/l Bedside Blood Urea Nitrogen 9 mg/dl Bedside Creatinine 0.8 mg/dl Bedside Glucose (other) 78 mg/dl Bedside Ionized Calcium (Eliza) 1.25 mmol/l Test 08/08/17 16:45 08/08/17 18:16 08/08/17 20:00 08/08/17 23:06 Ammonia 36.0 umol/L Troponin I 0.096 ng/ml 0.422 ng/ml Peritoneal Fluid Color YELLOW Peritoneal Fluid Appearance CLEAR Peritoneal Fluid WBC 166 /uL Peritoneal Fluid RBC < 3000 /uL Peritoneal Fld Mononuclear WBCs (%) 82.6 % Peritoneal Fld Polynuclear WBCs (%) 17.4 % Lactic Acid Level 2.2 mmol/L Test 08/08/17 23:11 08/09/17 01:38 08/09/17 02:28 08/09/17 05:50 Bedside Glucose (other) 134 mg/dl 160 mg/dl Urine Color YELLOW Urine Appearance CLEAR Urine pH 5.0 Urine Specific [place] 1.012 Urine Protein NEG Urine Glucose (UA) NEG Urine Ketones NEG Urine Occult Blood 1+ Urine Nitrite NEG Urine Bilirubin NEG Urine Urobilinogen NEG Urine Leukocyte Esterase NEG Urine WBC (Auto) 1-5 /hpf Urine RBC (Auto) 0-4 /hpf Urine Hyaline Casts (Auto) 1-5 /lpf Urine Epithelial Cells (Auto) 10-20 /lpf Urine Bacteria (Auto) NEG White Blood Count 12.69 K/uL Red Blood Count 2.61 M/uL Hemoglobin 7.6 g/dL Hematocrit 23.9 % Mean Corpuscular Volume 91.6 fL Mean Corpuscular Hemoglobin 29.1 pg Mean Corpuscular Hemoglobin Concent 31.8 g/dl Platelet Count 194 K/uL Mean Platelet Volume 8.6 fL Neutrophils (%) (Auto) 89.8 % Lymphocytes (%) (Auto) 3.2 % Monocytes (%) (Auto) 6.4 % Eosinophils (%) (Auto) 0.0 % Basophils (%) (Auto) 0.2 % Neutrophils # (Auto) 11.40 K/uL Lymphocytes # (Auto) 0.40 K/uL Monocytes # (Auto) 0.81 K/uL Eosinophils # (Auto) 0.00 K/uL Basophils # (Auto) 0.03 K/uL RDW Standard Deviation 62.7 fL RDW Coefficient of Variation 18.6 % Immature Granulocyte % (Auto) 0.4 % Immature Granulocyte # (Auto) 0.05 K/uL Hypochromasia PRESENT Acanthocytes 2+ Sodium Level 136 mmol/L Potassium Level 4.1 mmol/L Chloride Level 108 mmol/L Carbon Dioxide Level 18 mmol/L Anion Gap 10.0 mmol/L Blood Urea Nitrogen 13 mg/dl Creatinine 0.98 mg/dl Est Creatinine Clear Calc Drug Dose 52.1 ml/min Estimated GFR () 72.2 Estimated GFR (Non- 62.3 BUN/Creatinine Ratio 13.4 Random Glucose 146 mg/dl Lactic Acid Level 2.4 mmol/L Calcium Level 7.7 mg/dl Phosphorus Level 5.3 mg/dl Magnesium Level 2.0 mg/dl Total Bilirubin 1.6 mg/dl Aspartate Amino Transf (AST/SGOT) 43 U/L Alanine Aminotransferase (ALT/SGPT) 21 U/L Alkaline Phosphatase 68 U/L Total Protein 7.5 gm/dl Albumin 2.9 gm/dl Globulin 4.6 gm/dl Albumin/Globulin Ratio 0.6 Test 08/09/17 05:53 08/09/17 10:00 08/09/17 11:47 08/09/17 11:54 Venous Blood pH 7.20 6.99 Venous Blood Partial Pressure CO2 48 mmHg 87 mmHg Venous Blood Partial Pressure O2 54 mmHg 49 mmHg Venous Blood HCO3 18 mmol/L 21 mmol/L Venous Blood Oxygen Saturation 80.3 % 70.5 % Venous Blood Base Excess -9.2 mEq/L -11.2 mEq/L Troponin I 0.821 ng/ml 1.020 ng/ml Influenza Type A (RT-PCR) POS for Influ A Influenza Type B (RT-PCR) Neg for Influ B
--- NOTE | 2017-08-09 12:51 | DIAGNOSTIC IMAGING REPORT ---
DOPPLER ULTRASOUND OF THE HEPATIC AND PORTAL VASCULATURE CLINICAL HISTORY: Cirrhosis. TIPS catheter. COMPARISON STUDY: Abdominal CT dated 06/07/2017. TECHNIQUE: Real-time, grayscale, and color Doppler sonography of the hepatic and portal vasculature is performed. The examination is degraded by lack of patient cooperation and patient movement. FINDINGS: The main portal vein is patent with velocities measuring up to 84 cm/s. There is arterialization of the portal venous waveforms. A TIPS catheter is in place extending from the main portal vein to the middle hepatic vein. The TIPS catheter is patent. Velocities within the catheter measure up to 128 cm/s. The hepatic veins are patent with loss of the normal hepatic venous waveforms. The right and left portal venous branches are patent noting reversal of flow. The IVC is patent. Cirrhotic liver morphology is identified. There is a small volume of abdominal ascites. IMPRESSION: 1. A TIPS catheter is in place as detailed above. The TIPS is patent. 2. The hepatic veins and portal veins are patent as detailed above. 3. Cirrhotic liver morphology. Dictated: 08/09/2017 12:24 PM Transcribed: 08/09/2017 12:50 PM [email or web address] Electronically signed by: Oleg Owens M.D. 08/09/2017 1:02 PM Dictated Date/Time: 08/09/2017 12:24 PM
--- NOTE | 2017-08-09 12:55 | Procedure Note ---
Procedure Note Date of Service Aug 09, 2017. Procedure Note Procedure Date: August 09, 2017 Procedure: Endotracheal intubation Pre-procedure Diagnosis: Acute hypercarbic hypoxic respiratory failure Post-procedure Diagnosis: same as above Prior to Procedure: Informed Consent: emergent Attending Staff: Orlando San DO Indications: Patient is a 62-year-old female with influenza A and subsequent hypercarbic hypoxic respiratory failure following unplanned extubation earlier this morning with kind commitment stress-induced cardiomyopathy The identity of the patient was confirmed and a bedside time out was performed. Description of Procedure: Patient was evaluated and required intubation for impending respiratory failure. The patient was prepared in the usual fashion. A [place] to laryngoscope was used. A 7.5 Fr endotrachial tube was placed endotracheally to 23 cm at the gumline. A grade 1 view was obtained. The endotracheal tube was noted to pass through the vocal cords. Chest rise was bilateral. Bilateral breath sounds were heard without air sounds in the abdomen. Mist was noted in the endotracheal tube. End-tidal CO2 measurement was positive. Chest x-ray shows proper endotracheal tube placement. Complications: None Findings: not applicable Specimens: not applicable Estimated blood loss: Zero
--- NOTE | 2017-08-09 13:38 | DIAGNOSTIC IMAGING REPORT ---
KUB CLINICAL HISTORY: Cirrhosis. Enteric tube placement. FINDINGS: An AP, portable, supine radiograph of the upper abdomen is correlated with abdominal CT dated 06/07/2017. An enteric tube has been placed. The tip projects below the diaphragm over the distal stomach. A TIPS catheter is noted in the upper abdomen. There is no evidence of bowel obstruction. No abnormal abdominal calcifications are identified in the upper abdomen. IMPRESSION: 1. The tip of an enteric tube projects below the diaphragm over the distal stomach. 2. There is no evidence of bowel obstruction. Electronically signed by: Oleg Owens M.D. 08/09/2017 1:37 PM Dictated Date/Time: 08/09/2017 1:34 PM
--- NOTE | 2017-08-09 13:38 | DIAGNOSTIC IMAGING REPORT ---
CHEST ONE VIEW PORTABLE CLINICAL HISTORY: Intubation. COMPARISON STUDY: Chest radiograph August 08, 2017 at 9:35 PM. FINDINGS: Tip of endotracheal tube is 2.9 cm above the daija. Tip of nasogastric tube is below the lower aspect of image but at least within the proximal body of the stomach. Right internal jugular central line is in place. There is no pneumothorax. There are trace bilateral pleural effusions. Interstitial pulmonary edema persists. This has slightly improved. Mild bibasilar opacities are unchanged. A suspected TIPS is incidentally noted. IMPRESSION: 1. Persistent, but slightly improved, pulmonary edema. 2. Small bilateral pleural fusions with mild bibasilar opacities. Electronically signed by: Kvng Hernandez M.D. 08/09/2017 1:37 PM Dictated Date/Time: 08/09/2017 1:34 PM
--- NOTE | 2017-08-09 14:18 | Pharmacy Progress Note ---
Pharmacy Abx Dose Short Note Date of Service Aug 09, 2017. Assessment & Plan Assessment 62 year old female receiving vancomycin. Vancomycin was adjusted to 1000mg q18h based on CrCl rather than GFR. A new trough will be ordered tomorrow, if therapy is to continue. Plan Vancomycin * Change to 1000 mg IV every 18 hours * Goal trough level for : 15 to 20 mcg/mL * Trough or random level ordered for: Will be ordered 08/10 @2130 if to continue Pharmacy will continue to follow and will adjust dose/frequency as necessary. Thank you.
[2017-08-09] MEDS: OSELTAMIVIR PHOSPHATE SUSP 30 MG/5 ML UDP PO SCH (20:07)
[2017-08-10] VITALS (65 sets, daily range): BP systolic 66–116; BP diastolic 15–70; PULSE 82–106; TEMP 36.3–36.7; O2SAT 88–100
[2017-08-10] MEDS: MIDAZOLAM HCL 1 MG/ML 2ML VIAL IV PRN ×8 (00:03→23:16)
[2017-08-10] MEDS: PHENYLEPHRINE HCL INJ 20 MG in DEXTROSE 5% 500ML 500 ML IV PRN ×3 (00:04→06:32)
[2017-08-10 00:40] LABS: HEMATOCRIT 23.9 % (37-47); HEMOGLOBIN 7.6 g/dL (12.0-16.0)
[2017-08-10] MEDS: FENTANYL CITRATE INJ 50 MCG/1 ML 2 ML VIAL IV PRN ×4 (01:28→15:21)
[2017-08-10] MEDS: PIPERACILL/TAZOBAC IV 3.375 GM in DEXTROSE 5% 100ML IV SCH ×3 (01:29→18:00)
--- NOTE | 2017-08-10 02:01 | Critical Care Progress Note ---
Critical Care Progress Note Date of Service Aug 10, 2017. Critical Care Progress Note Nursing placed OG tube to suction for immediate return of 350 +/- cc of very dark gastric contents, concerning for blood. Gastric contents were sent to the lab and were heme positive. STAT H&H was unchanged from prior lab. Pts vitals signs have remained unchanged on 1.7mcg/kg of Phenylephrine. * Pt is already receiving Protonix BID. * OG tube to suction * Vital Signs stable at this time * Will continue to monitor * 2u PRBCs on hold if needed Additional Critical Care Time: 30 minutes Pt began requiring more vasopressors to sustain SBP. Called respiratory to check ABG for presumed acidosis. ABG demonstrated 7.074/73/91/21.6 Vent settings were changed from 14/450/5/40 to a increased respiratory rate of 20. * Continue to monitor SBP, Goal Map > 65 * Increase phenylephrine as indicated * Repeat ABG in 1 hour Additional Critical Care time: 30 minutes
[2017-08-10] MEDS ORDERED: SODIUM CHLORIDE 0.9% 1000ML 1,000 ML IV STA (03:08)
[2017-08-10] MEDS ORDERED: VANCOMYCIN IV 1,000 MG in SODIUM CHLORIDE 0.9% 250ML 250 ML IV SCH (04:00)
[2017-08-10 05:45] LABS: HEMOGLOBIN 7.4 g/dL (12.0-16.0); MEAN CELL VOLUME 93.1 fL (80-100); MEAN CORPUSCULAR HGB CONC 32.2 g/dl (32-36); MEAN PLATELET VOLUME 9.6 fL (7.4-10.4); PLATELET COUNT 159 K/uL (130-400); RED CELL DISTRIBUTION WIDTH CV 18.2 % (11.5-14.5); WHITE BLOOD COUNT 18.56 K/uL (4.8-10.8)
[2017-08-10] MEDS: INSULIN ASPART 100 UNITS/ML 3 ML PEN SC SCH ×4 (05:50→18:00)
[2017-08-10] MEDS: METHYLPREDNISOLONE IV 40 MG in SYRINGE 0 ML IV SCH ×3 (05:50→22:29)
[2017-08-10] MEDS: LEVOTHYROXINE 25 MCG TAB PO SCH (05:50)
[2017-08-10] MEDS ORDERED: SODIUM BICARB 8.4% INJ 50 MEQ/50 ML SYR IV STA ×2 (06:18→06:53)
[2017-08-10 06:19] LABS: CALCIUM 7.1 mg/dl (8.5-10.1); CREATININE 1.16 mg/dl (0.60-1.20); PHOSPHORUS 4.8 mg/dl (2.5-4.9); POTASSIUM 3.8 mmol/L (3.5-5.1)
[2017-08-10] MEDS ORDERED: SODIUM BICARB 8.4% INJ 50 MEQ/50 ML SYR IV ONE (06:20)
[2017-08-10] MEDS ORDERED: VASOPRESSIN INJ 50 UNITS in SODIUM CHLORIDE 0.9% 500ML 500 ML IV PRN (06:41)
[2017-08-10] MEDS ORDERED: SODIUM CHLORIDE 0.9% 500ML 500 ML IV SCH (06:45)
[2017-08-10] MEDS ORDERED: SODIUM BICARBONATE IV SCH (07:15)
[2017-08-10] MEDS ORDERED: SODIUM CHLORIDE 0.9% IV SCH (07:15)
[2017-08-10] MEDS: LEValbuterol HFA 15GM INHALER INH SCH ×4 (07:45→21:00)
--- NOTE | 2017-08-10 07:46 | DIAGNOSTIC IMAGING REPORT ---
SINGLE VIEW CHEST CLINICAL HISTORY: Acute on chronic respiratory failure. FINDINGS: 2 AP, portable, upright chest radiographs are compared to study dated 08/09/2017. The examination is severely degraded by portable technique and patient rotation. A right internal jugular central venous catheter, an enteric tube, and an endotracheal tube are unchanged in position. The heart is enlarged and there is atherosclerotic calcification of the thoracic aorta. There is pulmonary vascular congestion with bilateral airspace opacities. Emphysematous changes suspected. There is nonspecific interstitial thickening. Asymmetric airspace consolidation is present at both lung bases with small layering pleural effusions. No pneumothorax is seen. The skeletal structures are osteopenic. The bony thorax is grossly intact. IMPRESSION: 1. Stable lines and tubes. 2. Cardiomegaly with evidence of congestive failure and interstitial edema. This has worsened from yesterday. 3. Asymmetric airspace consolidation is present at both lung bases. This could represent a component of pulmonary edema versus superimposed pneumonia/aspiration. Clinical correlation will be required. 4. Small layering pleural effusions. Electronically signed by: Oleg Owens M.D. 08/10/2017 7:45 AM Dictated Date/Time: 08/10/2017 7:43 AM
[2017-08-10] MEDS: PHENYLEPHRINE HCL INJ 20 MG in SODIUM CHLORIDE 0.9% 500ML 500 ML IV PRN ×3 (09:23→14:18)
[2017-08-10] MEDS: SODIUM BICARBONATE 8.4% INJ 150 MEQ in DEXTROSE 5% 1000ML 1,000 ML IV SCH (09:49)
[2017-08-10] MEDS: MAGNESIUM SULFATE 1GM / D5W 1 GM in PREMIXED IN D5W 100 ML IV SCH ×2 (09:49→11:05)
[2017-08-10] MEDS: GABAPENTIN 300 MG CAP PO SCH ×3 (09:49→22:38)
[2017-08-10] MEDS: RIFAXIMIN TAB 550 MG TAB PO SCH ×2 (09:50→22:38)
[2017-08-10] MEDS: OSELTAMIVIR PHOSPHATE SUSP 30 MG/5 ML UDP PO SCH ×2 (09:52→22:38)
[2017-08-10] MEDS: THIAMINE HCL INJ 100 MG in SYRINGE 9 ML IV SCH (09:52)
--- NOTE | 2017-08-10 09:55 | Progress Note ---
Medicine Progress Note Date & Time of Visit: Aug 10, 2017 at 09:39 . Subjective Admitted 08/08 with acute respiratory failure. Intubated in ED. Remains sedated on ventilator. No fever. Hypotensive last night. Requiring phenylephrine and vasopressin for hemodynamic support. . Objective Last 8 Hrs Date Time Temp Pulse Resp B/P (MAP) Pulse Ox O2 Delivery O2 Flow Rate FiO2 08/10/17 08:16 88 24 89/65 (78) 100 08/10/17 08:01 90 24 88/62 (68) 99 08/10/17 08:00 100 Mechanical Ventilator 40 08/10/17 08:00 40 08/10/17 07:48 95 23 82/61 (64) 97 08/10/17 07:45 40 08/10/17 07:31 89 24 87/60 (64) 98 08/10/17 07:16 85 24 78/55 (62) 100 08/10/17 06:16 89 24 66/45 (53) 100 08/10/17 06:01 94 20 79/52 (66) 96 08/10/17 05:47 92 20 84/52 (63) 98 08/10/17 05:32 92 20 81/53 (66) 98 08/10/17 05:17 92 20 88/52 (60) 98 08/10/17 05:01 94 16 76/55 (64) 97 08/10/17 05:00 40 08/10/17 04:46 93 16 88/50 (57) 98 08/10/17 04:31 94 16 76/59 (65) 98 08/10/17 04:16 95 17 86/58 (64) 98 08/10/17 04:02 96 18 87/46 (58) 98 08/10/17 04:00 36.4 08/10/17 04:00 40 08/10/17 04:00 97 Mechanical Ventilator 40 08/10/17 03:46 94 17 69/53 (60) 98 08/10/17 03:31 95 16 70/48 (53) 100 08/10/17 03:16 97 17 79/54 (61) 97 08/10/17 03:01 97 18 72/49 (63) 97 08/10/17 02:46 97 16 75/50 (54) 97 08/10/17 02:31 97 17 80/45 (50) 97 08/10/17 02:16 97 16 69/48 (61) 97 08/10/17 02:05 40 08/10/17 02:01 97 14 66/46 (50) 96 Physical Exam: General- sedated on ventilator Eyes- ? mild scleral icterus ENT- oral ET tube; oral G-tube Neck- right IJ catheter Lungs- diffuse wheezing, few scattered rhonchi Heart- regular, tachy, no gallop appreciated Abdomen- slightly distended, soft - Nails catheter draining clear urine Extremities- no pretibial edema; SCDs applied Neuro- unresponsive . Laboratory Results: Last 24 Hours Test 08/09/17 10:00 08/09/17 11:47 08/09/17 11:53 08/09/17 11:54 Influenza Type A (RT-PCR) POS for Influ A Influenza Type B (RT-PCR) Neg for Influ B Troponin I 1.020 ng/ml Bedside Glucose 160 mg/dl Venous Blood pH 6.99 Venous Blood Partial Pressure CO2 87 mmHg Venous Blood Partial Pressure O2 49 mmHg Venous Blood HCO3 21 mmol/L Venous Blood Oxygen Saturation 70.5 % Venous Blood Base Excess -11.2 mEq/L Procalcitonin 7.92 ng/ml Test 08/09/17 13:43 08/09/17 17:57 08/09/17 22:23 08/09/17 23:52 Venous Blood pH 7.10 7.09 Venous Blood Partial Pressure CO2 74 mmHg 75 mmHg Venous Blood Partial Pressure O2 57 mmHg 57 mmHg Venous Blood HCO3 23 mmol/L 22 mmol/L Venous Blood Oxygen Saturation 82.2 % 81.9 % Venous Blood Base Excess -7.4 mEq/L -8.1 mEq/L Lactic Acid Level 2.1 mmol/L 1.3 mmol/L Troponin I 1.400 ng/ml Bedside Glucose (other) 158 mg/dl Test 08/09/17 23:54 08/10/17 00:04 08/10/17 05:35 08/10/17 05:43 Hemoglobin 7.6 g/dL 7.4 g/dL Hematocrit 23.9 % 23.0 % Gastric Fluid pH 5-7 Gastric Fluid Occult Blood POS White Blood Count 18.56 K/uL Red Blood Count 2.47 M/uL Mean Corpuscular Volume 93.1 fL Mean Corpuscular Hemoglobin 30.0 pg Mean Corpuscular Hemoglobin Concent 32.2 g/dl RDW Standard Deviation 62.0 fL RDW Coefficient of Variation 18.2 % Platelet Count 159 K/uL Mean Platelet Volume 9.6 fL Sodium Level 131 mmol/L Potassium Level 3.8 mmol/L Chloride Level 102 mmol/L Carbon Dioxide Level 22 mmol/L Anion Gap 7.0 mmol/L Blood Urea Nitrogen 30 mg/dl Creatinine 1.16 mg/dl Est Creatinine Clear Calc Drug Dose 44.0 ml/min Estimated GFR () 58.9 Estimated GFR (Non- 50.8 BUN/Creatinine Ratio 25.7 Random Glucose 158 mg/dl Calcium Level 7.1 mg/dl Phosphorus Level 4.8 mg/dl Magnesium Level 1.9 mg/dl Ammonia 90.0 umol/L Bedside Glucose (other) 155 mg/dl Assessment & Plan CARDIOVASCULAR Serum troponin 0.096 --> 0.821 --> 1.4.. Echo demonstrated apical hypokinesis and dilatation consistent with takotsubo cardiomyopathy versus ischemic heart disease, overall LVEF 40-45%. Ongoing hypotension requiring fluid boluses and pressor support. Management per Critical Care Medicine. RESPIRATORY Acute hypoxic respiratory failure requiring intubation/mechanical ventilation. Underlying chronic hypoxic respiratory failure due to COPD, on home O2. Superimposed influenza A and possible pneumonia. Management per Critical Care Medicine. GI History of cirrhosis (attributed to hepatitis C + alcohol) with portal hypertension, S/P TIPS. Total bilirubin 1.6. INR 1.2. Ammonia 36 --> 90. Peritoneal WBC's 166. GI consulted. Receiving lactulose. IV pantoprazole for stress ulcer prophylaxis. RENAL / LYTES Serum creatinine 0.98 --> 1.16. Mixed metabolic + respiratory acidosis. Mg at time of admission was 1.60; received replacement. Na today = 131. Follow. ENDO Glycemic management per protocol. ID Possible sepsis. Procalcitonin 7.92. 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 Receiving vancomycin and piperacillin/tazobactam for possible bacterial pneumonia. Procalcitonin 7.92. Urine does not appear to be infected. Does not appear to have SBP. ID consulted. HEME Hgb on admission 7.9, repeat this morning 7.4. Underlying cirrhosis. No gross GI bleeding. Follow H/H. NEURO Encephalopathy, probable metabolic encephalopathy. Follow. HISTORY OF ALCOHOL ABUSE IV thiamine. VTE PROPHYLAXIS SQ enoxaparin transitioned to SQ heparin. DISPOSITION Critically ill with poor prognosis. Discharge disposition to be determined. Consultants: [facility] Nephrology . Consultants: [facility] . Current Inpatient Medications: Current Inpatient Medications Medications (Trade) Dose Ordered Sig/Shelby Route Start Time Stop Time Status Last Admin Dose Admin Ondansetron HCl (Zofran Inj) 4 mg Q6H PRN IV 08/08/17 18:00 09/07/17 17:59 Miscellaneous Information (Consult) 1 ea UD PRN N/A 08/08/17 18:00 09/07/17 17:59 Miscellaneous Information (Consult) 1 ea UD PRN N/A 08/08/17 18:00 09/07/17 17:59 Methylprednisolone Sodium Succinate 40 mg/Syringe 0.64 ml @ 1.5 mls/min Q8H IV 08/08/17 22:00 09/07/17 21:59 08/10/17 05:50 1.5 MLS/MIN Folic Acid (Folvite Tab) 1 mg QAM PO 08/09/17 09:00 09/08/17 08:59 08/09/17 07:53 1 MG Gabapentin (Neurontin Cap) 300 mg TID PO 08/08/17 21:00 09/07/17 20:59 08/09/17 20:08 300 MG Hyoscyamine Sulfate (Levsin Tab) 0.125 mg ACHS PRN PO 08/08/17 18:15 09/07/17 18:14 Levothyroxine Sodium (Synthroid Tab) 25 mcg DAILYBB PO 08/09/17 06:00 09/08/17 06:59 08/10/17 05:50 25 MCG Rifaximin (Xifaxan Tab) 550 mg BID PO 08/08/17 21:00 09/07/17 20:59 08/09/17 20:07 550 MG Piperacillin Sod/ Tazobactam Sod 3.375 gm/Dextrose 115 ml @ 28.75 mls/ hr Q8H IV 08/09/17 02:00 08/11/17 01:59 08/10/17 01:29 28.75 MLS/HR Levalbuterol (Xopenex Hfa Inhaler) 2 puffs QID INH 08/09/17 09:00 09/08/17 08:59 08/10/17 07:45 2 PUFFS Fentanyl Citrate (Fentanyl Inj) 50 mcg Q1H PRN IV 08/09/17 03:00 08/23/17 02:59 08/10/17 01:28 50 MCG Nicotine (Nicoderm Cq 7 Mg Patch) 1 patch QAM TD 08/09/17 09:00 09/08/17 08:59 08/09/17 07:55 1 PATCH Miscellaneous (Remove Nicoderm Patch) 1 ea HS N/A 08/09/17 21:00 09/08/17 20:59 08/09/17 20:07 1 EA Pantoprazole Sodium 40 mg/ Syringe 10 ml @ 5 mls/min DAILY@11 IV 08/09/17 11:00 09/08/17 10:59 08/09/17 12:06 5 MLS/MIN Insulin Aspart (novoLOG ASPART) SLIDING SCALE If C... Q6 SC 08/09/17 12:00 09/08/17 11:59 Glucose (Glucose 40% Gel) 15-30 GRAMS 15 GRAMS... UD PRN PO 08/09/17 10:15 09/08/17 10:14 Glucose (Glucose Chew Tab) 4-8 Tablets 4 Tabl... UD PRN PO 08/09/17 10:15 09/08/17 10:14 Dextrose (Dextrose 50% 50ML Syringe) 25-50ML OF 50% DW IV FOR... UD PRN IV 08/09/17 10:15 09/08/17 10:14 Glucagon (Glucagon Inj) 1 mg UD PRN SQ 08/09/17 10:15 09/08/17 10:14 Oseltamivir Phosphate (Tamiflu Susp) 30 mg BID PO 08/09/17 21:00 08/14/17 20:59 08/09/17 20:07 30 MG Vancomycin HCl 1000 mg/Sodium Chloride 270 ml @ 125 mls/hr Q18H IV 08/10/17 04:00 08/10/17 23:59 08/10/17 03:19 125 MLS/HR Thiamine HCl 100 mg/Syringe 10 ml @ 2 mls/min QAM IV 08/10/17 09:00 09/09/17 08:59 Vasopressin 50 units/Sodium Chloride 502.5 ml @ 0 mls/hr Q0M PRN IV 08/10/17 06:41 09/09/17 06:40 08/10/17 07:17 24 MLS/HR Phenylephrine HCl 20 mg/Sodium Chloride 502 ml @ 0 mls/hr Q0M PRN IV 08/10/17 07:45 09/09/17 07:44 08/10/17 09:23 210 MLS/HR Midazolam HCl (Versed Inj) 2 mg Q2H PRN IV 08/10/17 09:30 09/09/17 09:29 Magnesium Sulfate 1 gm/Prmx 100 ml @ 100 mls/hr Q1H IV 08/10/17 09:30 08/10/17 11:29 Sodium Bicarbonate 150 meq/Dextrose 1,150 ml @ 75 mls/hr [id number] IV 08/10/17 09:45 09/09/17 09:44
--- NOTE | 2017-08-10 11:01 | Nephrology Consultation ---
Nephrology Consultation Date of Consultation: Aug 10, 2017. Attending Physician: Dr Sotelo Requesting Physician: Dr San Reason for Consultation: ? need for dialysis History of Present Illness 62 year old female whom I'm asked to evaluate for possible need for dialysis after admission for on 08/08 for sepsis attributed to possible SBP (though ascitic fluid not suggestive of infection) and acute on chronic hypoxic respiratory failure. She was brought to hospital by EMS from home and required CPAP en route; had confusion/combativeness en route/in ER where she desat'd on bipap and was intubated in ER. Multiple ulcers were noted during intubation. She was hypotensive, tachycardic, w/ temp 38.1. Moved to ICU where she self extubated overnight. Admission labs remarkable for lactate 2.7, WBC 9, Hgb 7.9 , creatinine 0.9, bicarb 18, K 4.1, mag 1.6; serologies + for influenza A. This am, her creatinine is 1.2, K 3.8, Na 131, bicarb 22, ammonia 90; wbc 19, hgb 7.4 This serial VBG on 08/09 show pH range 6.99-7.1 w/ pC02 in 70-80s; bicarb in low 20s. PMH includes hcv/EtOH cirrhosis abstinent from EtOH since and s/p 06/2017 TIPS at [facility] [place]08, recurrent ascites dependent on serial paracenteses, COPD, active tobacco abuse, multiple hospital admissions in past 6 mos as detailed below. GI is following and does not believe liver disease is currently decompensated. Inf dzs is following > to date no clear source for sepsis and so covering broadly including w/ tamiflu. Last evening she had was suctioned for 350 cc of heme + gastric contents; she also developed a pressor requirement, now for 2 pressors; UOP dropped off significantly around this time. She had acidemia overnight w/ ;vent settings were changed w/ some improvement. Past Medical/Surgical History Medical Problems: (1) BRADLEY (acute kidney injury) Status: Acute (2) BRADLEY (acute kidney injury) Status: Acute (3) Ambulatory dysfunction Status: Acute (4) Ascites Status: Acute (5) Chest wall contusion Status: Acute (6) Chest wall pain Status: Acute (7) COPD (chronic obstructive pulmonary disease) Status: Acute (8) Diffuse abdominal pain Status: Acute (9) Elevated bilirubin Status: Acute (10) Hyperammonemia Status: Acute (11) Hypomagnesemia Status: Acute (12) Hypotension Status: Acute (13) Paresthesia Status: Acute (14) Partial small bowel obstruction Status: Acute (15) Respiratory failure Status: Acute (16) Sepsis, unspecified organism Status: Acute (17) Symptomatic anemia Status: Acute -as per HPI -multiple recent hospitalizations: >>>02/13-02/2017 Ascites >>>03/03-03/16/2018 Hypotension >>>04/21-04/2018 Hypotension and Decompensated Liver Dz >>> Altered Mental Status >>> ARF, C Diff Colitis & hypotension 2/2 refractory cirrhosis with w/ transfer to [facility] where she had TIPS and dx w/ SBP -Celiac Dz -Depression w/ hx of suicide attempt by stabbing 12/2001 s/p ex lap -Liver Laceration Closed (2010) -Orthostatic hypotension on high dose daily midodrine -Mixed nondependent drug abuse (Speed 1977, Librium 1984, Elavil 1984) -TB of Bone or Joint (9month tx while incarcerated 2004) -Viral Hep B -s/p appendectomy; s/p tubal ligation Family History FH: dementia FATHER Social History Smoking Status: Current Every Day Smoker (1/2 pack per day since 1970) Alcohol Use: none, heavy Drug Use: none Marital Status: in relationship Housing Status: lives with family Allergies Coded Allergies: No Known Allergies (Unverified , 08/08/17) Medications Current Inpatient Medications Medications (Trade) Dose Ordered Sig/Shelby Route Start Time Stop Time Status Last Admin Dose Admin Ondansetron HCl (Zofran Inj) 4 mg Q6H PRN IV 08/08/17 18:00 09/07/17 17:59 Miscellaneous Information (Consult) 1 ea UD PRN N/A 08/08/17 18:00 09/07/17 17:59 Miscellaneous Information (Consult) 1 ea UD PRN N/A 08/08/17 18:00 09/07/17 17:59 Methylprednisolone Sodium Succinate 40 mg/Syringe 0.64 ml @ 1.5 mls/min Q8H IV 08/08/17 22:00 09/07/17 21:59 08/10/17 05:50 1.5 MLS/MIN Citalopram Hydrobromide (celeXA TAB) 20 mg DAILY PO 08/09/17 09:00 09/08/17 08:59 08/09/17 07:52 20 MG Folic Acid (Folvite Tab) 1 mg QAM PO 08/09/17 09:00 09/08/17 08:59 08/09/17 07:53 1 MG Gabapentin (Neurontin Cap) 300 mg TID PO 08/08/17 21:00 09/07/17 20:59 08/09/17 20:08 300 MG Hyoscyamine Sulfate (Levsin Tab) 0.125 mg ACHS PRN PO 08/08/17 18:15 09/07/17 18:14 Levothyroxine Sodium (Synthroid Tab) 25 mcg DAILYBB PO 08/09/17 06:00 09/08/17 06:59 08/10/17 05:50 25 MCG Rifaximin (Xifaxan Tab) 550 mg BID PO 08/08/17 21:00 09/07/17 20:59 08/09/17 20:07 550 MG Sodium Bicarbonate (Sodium Bicarbonate Tab) 650 mg TID PO 08/08/17 21:00 09/07/17 20:59 08/09/17 20:08 650 MG Lactulose (Chronulac Syrup) 30 gm TID PO 08/08/17 21:00 09/07/17 20:59 08/09/17 20:07 30 GM Piperacillin Sod/ Tazobactam Sod 3.375 gm/Dextrose 115 ml @ 28.75 mls/ hr Q8H IV 08/09/17 02:00 08/11/17 01:59 08/10/17 01:29 28.75 MLS/HR Levalbuterol (Xopenex Hfa Inhaler) 2 puffs QID INH 08/09/17 09:00 09/08/17 08:59 08/10/17 07:45 2 PUFFS Midazolam HCl (Versed Inj) 2 mg Q1H PRN IV 08/09/17 02:30 09/08/17 02:29 08/10/17 07:47 2 MG Fentanyl Citrate (Fentanyl Inj) 50 mcg Q1H PRN IV 08/09/17 03:00 08/23/17 02:59 08/10/17 01:28 50 MCG Nicotine (Nicoderm Cq 7 Mg Patch) 1 patch QAM TD 08/09/17 09:00 09/08/17 08:59 08/09/17 07:55 1 PATCH Miscellaneous (Remove Nicoderm Patch) 1 ea HS N/A 08/09/17 21:00 09/08/17 20:59 08/09/17 20:07 1 EA Pantoprazole Sodium 40 mg/ Syringe 10 ml @ 5 mls/min DAILY@11 IV 08/09/17 11:00 09/08/17 10:59 08/09/17 12:06 5 MLS/MIN Insulin Aspart (novoLOG ASPART) SLIDING SCALE If C... Q6 SC 08/09/17 12:00 09/08/17 11:59 Glucose (Glucose 40% Gel) 15-30 GRAMS 15 GRAMS... UD PRN PO 08/09/17 10:15 09/08/17 10:14 Glucose (Glucose Chew Tab) 4-8 Tablets 4 Tabl... UD PRN PO 08/09/17 10:15 09/08/17 10:14 Dextrose (Dextrose 50% 50ML Syringe) 25-50ML OF 50% DW IV FOR... UD PRN IV 08/09/17 10:15 09/08/17 10:14 Glucagon (Glucagon Inj) 1 mg UD PRN SQ 08/09/17 10:15 09/08/17 10:14 Enoxaparin Sodium (Lovenox Inj) 30 mg Q24H SQ 08/09/17 11:00 09/08/17 10:59 08/09/17 11:52 30 MG Oseltamivir Phosphate (Tamiflu Susp) 30 mg BID PO 08/09/17 21:00 08/14/17 20:59 08/09/17 20:07 30 MG Vancomycin HCl 1000 mg/Sodium Chloride 270 ml @ 125 mls/hr Q18H IV 08/10/17 04:00 08/10/17 23:59 08/10/17 03:19 125 MLS/HR Thiamine HCl 100 mg/Syringe 10 ml @ 2 mls/min QAM IV 08/10/17 09:00 09/09/17 08:59 Vasopressin 50 units/Sodium Chloride 502.5 ml @ 0 mls/hr Q0M PRN IV 08/10/17 06:41 09/09/17 06:40 08/10/17 07:17 24 MLS/HR Sodium Bicarbonate 150 meq/Sodium Chloride 1,150 ml @ 150 mls/hr Q7H40M IV 08/10/17 07:15 09/09/17 07:14 08/10/17 07:42 150 MLS/HR Phenylephrine HCl 20 mg/Sodium Chloride 502 ml @ 0 mls/hr Q0M PRN IV 08/10/17 07:45 09/09/17 07:44 Home Meds and Scripts Medications Dose Route/Sig Max Daily Dose Days Date Category Cipro (Ciprofloxacin Hcl) 500 Mg Tab 500 Mg PO DAILY 08/08/17 Reported Midodrine HCl (Midodrine) 2.5 Mg Tab 10 Mg PO TID@0700,1300,1800 10 06/08/17 Rx Probiotic (Probiotic Product) 1 Cap Cap 1 Cap PO DAILY 06/07/17 Reported Xifaxan (Rifaximin) 550 Mg Tab 1 Tab PO BID 14 06/07/17 Reported Gabapentin 300 Mg Cap 300 Mg PO TID 06/07/17 Reported Folic Acid 1 Mg Tab 1 Mg PO QAM 06/07/17 Reported Chronulac (Lactulose) 10 Gm/15 Ml Syrp 30 Gm PO BID 06/07/17 Reported Oxygen Gas 3 Liters NA UD 05/03/17 Reported Levothyroxine Sodium 25 Mcg Tab 25 Mcg PO DAILY 05/03/17 Reported Citalopram Hydrobromide (Citalopram) 20 Mg Tab 20 Mg PO DAILY 05/03/17 Reported Sodium Bicarbonate 650 Mg Tab 650 Mg PO TID 05/03/17 Reported Tramadol HCl 50 Mg Tab 50 Mg PO Q6H PRN 05/03/17 Reported Ondansetron HCl (Ondansetron) 4 Mg Tab 4 Mg PO Q8 PRN 05/03/17 Reported Vitamin B1 (Thiamine Mononitrate) 100 Mg Tab 100 Mg PO QAM 05/03/17 Reported Ventolin Hfa (Albuterol) 200 Puffs/94319 Mcg Aers 2 Puffs INH Q4H PRN 10/25/16 Reported Levsin (Hyoscyamine Sulfate) 0.125 Mg Tab 0.125 Mg PO ACHS PRN 10/25/16 Reported Review of Systems unable to obtain d/t clinical condition (on vent/ unresponsive) Physical Exam Date Time Temp Pulse Resp B/P (MAP) Pulse Ox O2 Delivery O2 Flow Rate FiO2 08/10/17 07:45 40 08/10/17 06:16 89 24 66/45 (53) 100 08/10/17 06:01 94 20 79/52 (66) 96 08/10/17 05:47 92 20 84/52 (63) 98 08/10/17 05:32 92 20 81/53 (66) 98 08/10/17 05:17 92 20 88/52 (60) 98 08/10/17 05:01 94 16 76/55 (64) 97 08/10/17 05:00 40 08/10/17 04:46 93 16 88/50 (57) 98 08/10/17 04:31 94 16 76/59 (65) 98 08/10/17 04:16 95 17 86/58 (64) 98 08/10/17 04:02 96 18 87/46 (58) 98 08/10/17 04:00 36.4 08/10/17 04:00 40 08/10/17 04:00 97 Mechanical Ventilator 40 08/10/17 03:46 94 17 69/53 (60) 98 08/10/17 03:31 95 16 70/48 (53) 100 08/10/17 03:16 97 17 79/54 (61) 97 08/10/17 03:01 97 18 72/49 (63) 97 08/10/17 02:46 97 16 75/50 (54) 97 08/10/17 02:31 97 17 80/45 (50) 97 08/10/17 02:16 97 16 69/48 (61) 97 08/10/17 02:05 40 08/10/17 02:01 97 14 66/46 (50) 96 08/10/17 01:31 100 14 74/48 (52) 95 08/10/17 01:01 103 19 78/58 (66) 97 08/10/17 00:31 103 17 83/58 (63) 96 08/10/17 00:01 101 19 90/48 (79) 96 08/10/17 00:01 36.5 08/09/17 23:59 97 Mechanical Ventilator 40 08/09/17 23:59 40 08/09/17 23:31 103 19 89/60 (69) 96 08/09/17 23:25 102 20 86/67 (77) 96 08/09/17 23:17 102 18 78/58 (66) 96 08/09/17 23:01 103 19 87/58 (65) 97 08/09/17 22:30 102 18 89/45 (60) 97 Mechanical Ventilator 40 08/09/17 22:20 40 08/09/17 22:00 105 18 103/45 (55) 95 08/09/17 22:00 106 18 88/63 (71) 94 Mechanical Ventilator 40 08/09/17 21:45 105 19 88/63 (70) 95 08/09/17 21:30 106 19 88/62 (67) 95 08/09/17 21:15 104 19 86/57 (63) 95 08/09/17 21:00 105 19 92/59 (66) 94 08/09/17 20:30 105 19 90/65 (71) 94 08/09/17 20:15 106 18 95/58 (81) 95 08/09/17 20:00 106 19 86/56 (75) 94 08/09/17 20:00 40 08/09/17 20:00 94 Mechanical Ventilator 40 08/09/17 20:00 36.7 106 19 86/56 (66) 94 Mechanical Ventilator 40 08/09/17 19:59 40 08/09/17 19:45 106 19 95/45 (83) 94 08/09/17 19:30 105 17 89/57 (63) 95 08/09/17 19:00 109 19 112/40 (57) 91 08/09/17 18:45 109 24 92/64 (74) 94 08/09/17 18:30 106 20 81/58 (66) 94 08/09/17 18:15 107 18 84/62 (67) 94 08/09/17 18:00 105 17 92/55 (62) 96 08/09/17 17:55 30 08/09/17 17:45 105 18 80/58 (62) 98 08/09/17 17:30 106 18 78/57 (67) 97 08/09/17 17:15 108 18 85/61 (69) 95 08/09/17 17:00 106 19 85/61 (73) 97 08/09/17 17:00 106 19 85/61 (69) 97 08/09/17 16:30 105 19 98/37 (57) 97 08/09/17 16:15 105 19 87/50 (62) 97 Mechanical Ventilator 50 08/09/17 16:00 36.7 105 18 101/38 (59) 97 Mechanical Ventilator 50 08/09/17 16:00 97 Mechanical Ventilator 50 08/09/17 16:00 50 08/09/17 16:00 105 18 101/38 (51) 97 08/09/17 14:00 105 17 82/56 (65) 97 Mechanical Ventilator 50 08/09/17 12:40 30 08/09/17 12:00 6 Oxymask 08/09/17 12:00 36.9 113 16 95/70 (78) 90 Oxymask 6.0 08/09/17 10:00 36.2 116 19 106/72 (83) 96 Nasal Cannula 4.0 08/09/17 08:31 36.1 111 21 91/61 (71) 94 Mechanical Ventilator 30 General Appearance: WD/WN, no apparent distress, + pertinent finding (intubated , sedated) ENT: + pertinent finding (ETT; OG w/ harjinder brown output) Neck: supple Respiratory/Chest: no respiratory distress, + decreased breath sounds, + wheezing Cardiovascular: regular rate, rhythm, no edema Abdomen: non tender, soft, + abnormal bowel sounds, + distended, + pertinent finding (calero w/ some yellow urine) Extremities: no pedal edema Neurologic/Psych: + pertinent finding (intubated/ sedated) Skin: warm/dry, no rash Diagnostics Last 24 Hours Test 08/09/17 10:00 08/09/17 11:47 08/09/17 11:53 08/09/17 11:54 Influenza Type A (RT-PCR) POS for Influ A Influenza Type B (RT-PCR) Neg for Influ B Troponin I 1.020 ng/ml Bedside Glucose 160 mg/dl Venous Blood pH 6.99 Venous Blood Partial Pressure CO2 87 mmHg Venous Blood Partial Pressure O2 49 mmHg Venous Blood HCO3 21 mmol/L Venous Blood Oxygen Saturation 70.5 % Venous Blood Base Excess -11.2 mEq/L Procalcitonin 7.92 ng/ml Test 08/09/17 13:43 08/09/17 17:57 08/09/17 22:23 08/09/17 23:52 Venous Blood pH 7.10 7.09 Venous Blood Partial Pressure CO2 74 mmHg 75 mmHg Venous Blood Partial Pressure O2 57 mmHg 57 mmHg Venous Blood HCO3 23 mmol/L 22 mmol/L Venous Blood Oxygen Saturation 82.2 % 81.9 % Venous Blood Base Excess -7.4 mEq/L -8.1 mEq/L Lactic Acid Level 2.1 mmol/L 1.3 mmol/L Troponin I 1.400 ng/ml Bedside Glucose (other) 158 mg/dl Test 08/09/17 23:54 08/10/17 00:04 08/10/17 05:35 08/10/17 05:43 Hemoglobin 7.6 g/dL 7.4 g/dL Hematocrit 23.9 % 23.0 % Gastric Fluid pH 5-7 Gastric Fluid Occult Blood POS White Blood Count 18.56 K/uL Red Blood Count 2.47 M/uL Mean Corpuscular Volume 93.1 fL Mean Corpuscular Hemoglobin 30.0 pg Mean Corpuscular Hemoglobin Concent 32.2 g/dl RDW Standard Deviation 62.0 fL RDW Coefficient of Variation 18.2 % Platelet Count 159 K/uL Mean Platelet Volume 9.6 fL Sodium Level 131 mmol/L Potassium Level 3.8 mmol/L Chloride Level 102 mmol/L Carbon Dioxide Level 22 mmol/L Anion Gap 7.0 mmol/L Blood Urea Nitrogen 30 mg/dl Creatinine 1.16 mg/dl Est Creatinine Clear Calc Drug Dose 44.0 ml/min Estimated GFR () 58.9 Estimated GFR (Non- 50.8 BUN/Creatinine Ratio 25.7 Random Glucose 158 mg/dl Calcium Level 7.1 mg/dl Phosphorus Level 4.8 mg/dl Magnesium Level 1.9 mg/dl Ammonia 90.0 umol/L Bedside Glucose (other) 155 mg/dl ABG 7.07/73/91/21.6 at 0200 08/10 Diagnostic Radiology: CXR > worse congestive failure/edema, BL lung base consolidation > aspiration v edema; small BL pl effusions liver u/s > tips patent as are hepatic/portal vv; cirrhotic liver TTE 08/09 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 * LV systolic function is mildly reduced, EF 40-45%. * Grade II diastolic dysfunction. * Mild tricuspid regurgitation. * Small circumferential pericardial effusion without hemodynamic significance. * PASP of 39 mmHg assuming a RA pressure of 8 mmHg vented. * The interatrial septum is intact with no evidence for an atrial septal defect. Injection of contrast documented no interatrial shunt. 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/p TIPS admitted 3/ w/ sepsis of unclear source (+influenza A) and acute on chronic hypoxic respiratory failure Volume overload total body w/ intravascular depletion and acidemia in the setting of sepsis / ESLD w/ pressor dependent hypotension -continue pressor support -even if she were a candidate for dialysis, do not believe she would tolerate intermittent HD on 2 pressors d/t hemodynamics; doubt we would be able to remove fluid safely -her acidemia is more respiratory in origin and note improvement on acidemia w/ changes to vent settings this am -reasonable to try medical measures such as low rate bicarb gtt as ordered to support bicarb levels ?role for albumin here in volume resuscitation BRADLEY -mild and trending toward oliguria. electrolytes including mild hyponatremia not a clinical issue at this time; baseline creatinine 0.7-0.8; likely to worsen. no evidence of uti or GN on urine sediment from yesterday. suspect this is prerenal process related to intravascular volume depletion in setting of total body overload w/ sepsis/ liver disease; would not call this HRS at this point ESLD w/ heme + gastric contents -per critical care, GI and primary services -unless this patient is a liver transplant candidate she is not a dialysis candidate, since initiating dialysis is generally poorly tolerated in ESLD and is recommended as a bridge to transplant Appreciate consult; will follow with you. Care coordinated w/ Drs. Sotelo and Jaswinder.
[2017-08-10] MEDS: PANTOprazole INJ 40 MG in SYRINGE 0 ML IV SCH ×2 (11:06→22:37)
[2017-08-10] MEDS: LACTULOSE SYRUP 200 GM, WATER, STERILE IRRIG 700 ML, BARCODE IDENTIFIER 1 EA PR SCH ×4 (12:10→18:00)
[2017-08-10] MEDS: UNIT DOSE COMPOUND PO SCH ×2 (12:10→18:00)
[2017-08-10] MEDS: HEPARIN SOD 5000 UNIT/0.5 ML CARP SC SCH ×2 (12:12→22:39)
[2017-08-10] MEDS ORDERED: VANCOMYCIN TROUGH ONE (13:30)
--- NOTE | 2017-08-10 15:27 | Critical Care Progress Note ---
Critical Care Progress Note Date of Service Aug 10, 2017. ICU Day ICU Day Number: [address] San Subjective Discussed with Rajeev Guerrero Required ventilator adjustment Decreased urine output Worsening BRADLEY, noted gastric occult positive secretions from NG tube Objective General: CAM positive, RASS score +1 at times, -3 at others. Appears older than stated age Skin: Cool, dry, Head: Atraumatic Ears, nose, mouth and throat: Endotracheal tube in place Cardiovascular: Normal peripheral perfusion, S1-S2 no murmurs Respiratory: no respiratory distress, scattered rhonchi bilaterally Gastrointestinal: Non distended, nontender Musculoskeletal: No deformity, Assessment & Plan Reason Critically Ill: Acute hypercarbic hypoxic respiratory failure, influenza A, stress-induced cardiomyopathy, PLAN: Neuro: Acute encephalopathy * Ammonia increasing * Intermittent bolus sedation as needed * Soft restraints as needed given previous unplanned extubation * Start lactulose retention enemas * Discontinuing oral lactulose given vasoactive medication and concern for nonocclusive bowel ischemia -Lactic acid negative at this time Resp: Acute hypercarbic hypoxic respiratory failure * Secondary to influenza A History COPD * Aggressive pulmonary toilet * Increased ventilatory rate secondary to respiratory acidosis CV: Stress-induced cardiomyopathy * Likely secondary to influenza A * Tolerating phenylephrine at 2.5 and vasopressin * Wean vasoactive's as tolerated Prolonged QTC * Discontinued citalopram Fluids/Renal: Discontinue midodrine given phenylephrine support * Worsening azotemia * Started bicarbonate infusion * Nephrology consult: Reviewed ID: Continue broad-spectrum antibiotics in addition to 5 days of Tamiflu * Added Tamiflu * Will send fungal blood culture and start antifungal: Diflucan secondary to hepatic insufficiency precluding caspofungin use GI/Nutrition: Reviewed GI recommendations * Started on PPI increased to twice daily * Duplex reviewed tips patent * Child-Muse: Likely classically: 1.4 bilirubin, albumin certainly decreased from 2.9, 3 points; INR 1.8; ascites 2 points slight; encephalopathy +3 * Will start Diflucan 200 mg IV, avoiding caspofungin secondary to hepatic insufficiency will continue to monitor daily LFTs Heme: Baseline anemia * Given worsening renal function converting from Lovenox to heparin 5000 units twice daily for DVT prophylaxis Endocrine: ICU hyperglycemia protocol I have personally spent 60 minutes of critical care time in the direct management of this patient. This is a life/limb threatening event. This includes time spent evaluating patient, direct bedside care, chart review, placing orders, interpretation of diagnostic studies, discussion with consultants, patient, and/or family members regarding treatment decisions, as well as other required patient management activities. This time is exclusive of all separately billable procedures, and teaching time and separate from and in addition to any other critical care service time. Data Medications: Current Inpatient Medications Medications (Trade) Dose Ordered Sig/Shelby Route Start Time Stop Time Status Last Admin Dose Admin Miscellaneous Information (Consult) 1 ea UD PRN N/A 08/08/17 18:00 09/07/17 17:59 Miscellaneous Information (Consult) 1 ea UD PRN N/A 08/08/17 18:00 09/07/17 17:59 Methylprednisolone Sodium Succinate 40 mg/Syringe 0.64 ml @ 1.5 mls/min Q8H IV 08/08/17 22:00 09/07/17 21:59 08/10/17 14:09 1.5 MLS/MIN Folic Acid (Folvite Tab) 1 mg QAM PO 08/09/17 09:00 09/08/17 08:59 08/10/17 09:50 1 MG Gabapentin (Neurontin Cap) 300 mg TID PO 08/08/17 21:00 09/07/17 20:59 08/10/17 14:07 300 MG Hyoscyamine Sulfate (Levsin Tab) 0.125 mg ACHS PRN PO 08/08/17 18:15 09/07/17 18:14 Levothyroxine Sodium (Synthroid Tab) 25 mcg DAILYBB PO 08/09/17 06:00 09/08/17 06:59 08/10/17 05:50 25 MCG Rifaximin (Xifaxan Tab) 550 mg BID PO 08/08/17 21:00 09/07/17 20:59 08/10/17 09:50 550 MG Piperacillin Sod/ Tazobactam Sod 3.375 gm/Dextrose 115 ml @ 28.75 mls/ hr Q8H IV 08/09/17 02:00 08/22/17 19:59 08/10/17 09:51 28.75 MLS/HR Levalbuterol (Xopenex Hfa Inhaler) 2 puffs QID INH 08/09/17 09:00 09/08/17 08:59 08/10/17 11:26 2 PUFFS Fentanyl Citrate (Fentanyl Inj) 50 mcg Q1H PRN IV 08/09/17 03:00 08/23/17 02:59 08/10/17 13:27 50 MCG Insulin Aspart (novoLOG ASPART) SLIDING SCALE If C... Q6 SC 08/09/17 12:00 09/08/17 11:59 Glucose (Glucose 40% Gel) 15-30 GRAMS 15 GRAMS... UD PRN PO 08/09/17 10:15 09/08/17 10:14 Glucose (Glucose Chew Tab) 4-8 Tablets 4 Tabl... UD PRN PO 08/09/17 10:15 09/08/17 10:14 Dextrose (Dextrose 50% 50ML Syringe) 25-50ML OF 50% DW IV FOR... UD PRN IV 08/09/17 10:15 09/08/17 10:14 Glucagon (Glucagon Inj) 1 mg UD PRN SQ 08/09/17 10:15 09/08/17 10:14 Oseltamivir Phosphate (Tamiflu Susp) 30 mg BID PO 08/09/17 21:00 08/14/17 20:59 08/10/17 09:52 30 MG Thiamine HCl 100 mg/Syringe 10 ml @ 2 mls/min QAM IV 08/10/17 09:00 09/09/17 08:59 08/10/17 09:52 2 MLS/MIN Vasopressin 50 units/Sodium Chloride 502.5 ml @ 0 mls/hr Q0M PRN IV 08/10/17 06:41 09/09/17 06:40 08/10/17 07:17 24 MLS/HR Phenylephrine HCl 20 mg/Sodium Chloride 502 ml @ 0 mls/hr Q0M PRN IV 08/10/17 07:45 09/09/17 07:44 08/10/17 14:18 210 MLS/HR Midazolam HCl (Versed Inj) 2 mg Q2H PRN IV 08/10/17 09:30 09/09/17 09:29 08/10/17 14:16 2 MG Sodium Bicarbonate 150 meq/Dextrose 1,150 ml @ 75 mls/hr [id number] IV 08/10/17 09:45 09/09/17 09:44 08/10/17 09:49 75 MLS/HR Heparin Sodium (Porcine) (Heparin Sq 5000 Unit/0.5ml) 5,000 unit Q12 SC 08/10/17 12:00 09/09/17 11:59 08/10/17 12:12 5,000 UNIT Lactulose/Sterile Water/Barcode Q8H DE 08/10/17 10:00 09/09/17 09:59 08/10/17 12:10 200 GM Miscellaneous (Unit Dose Compound) 1 ea Q8H PO 08/10/17 10:00 09/09/17 09:59 08/10/17 12:10 1 EA Pantoprazole Sodium 40 mg/ Syringe 10 ml @ 5 mls/min Q12 IV 08/10/17 21:00 09/09/17 20:59 I & O: 24-Hour Column 08/11/17 08:00 Intake Total 3350 ml Output Total 350 ml Balance 3000 ml Vital Signs: Date Time Temp Pulse Resp B/P (MAP) Pulse Ox O2 Delivery O2 Flow Rate FiO2 08/10/17 14:30 36.4 102 24 81/63 100 08/10/17 14:30 101 24 81/63 (70) 100 08/10/17 14:16 101 17 78/60 (65) 88 08/10/17 14:13 36.3 98 27 90 08/10/17 14:00 90 19 95 08/10/17 13:31 85 24 75/48 (57) 98 08/10/17 13:00 94 12 89/60 (69) 96 08/10/17 12:46 85 24 87/65 (71) 100 08/10/17 12:30 106 24 88/63 (80) 100 08/10/17 12:16 99 25 116/70 (88) 88 08/10/17 12:00 82 24 86/61 (71) 96 08/10/17 12:00 96 Mechanical Ventilator 30 08/10/17 12:00 30 08/10/17 12:00 36.5 08/10/17 11:45 98 24 97/53 (59) 96 08/10/17 11:30 95 24 89/61 (66) 96 08/10/17 11:27 30 08/10/17 11:15 96 24 88/61 (65) 100 08/10/17 11:01 97 24 89/61 (67) 100 08/10/17 10:46 102 24 78/61 (66) 100 08/10/17 10:38 101 19 91/57 (75) 95 08/10/17 10:21 87 24 86/62 (66) 100 08/10/17 10:16 87 24 89/63 (68) 100 08/10/17 10:01 88 24 85/61 (66) 100 08/10/17 09:46 87 24 85/62 (71) 100 08/10/17 09:45 87 24 100 08/10/17 09:31 87 24 87/62 (68) 100 08/10/17 09:15 88 24 88/62 (67) 100 08/10/17 09:01 87 24 91/63 (68) 100 08/10/17 08:46 87 24 95/62 (67) 99 08/10/17 08:31 86 24 91/61 (64) 99 08/10/17 08:16 88 24 89/65 (78) 100 08/10/17 08:01 90 24 88/62 (68) 99 08/10/17 08:00 36.7 08/10/17 08:00 100 Mechanical Ventilator 40 08/10/17 08:00 40 08/10/17 07:48 95 23 82/61 (64) 97 08/10/17 07:45 40 08/10/17 07:31 89 24 87/60 (64) 98 08/10/17 07:16 85 24 78/55 (62) 100 08/10/17 06:16 89 24 66/45 (53) 100 08/10/17 06:01 94 20 79/52 (66) 96 08/10/17 05:47 92 20 84/52 (63) 98 08/10/17 05:32 92 20 81/53 (66) 98 08/10/17 05:17 92 20 88/52 (60) 98 08/10/17 05:01 94 16 76/55 (64) 97 08/10/17 05:00 40 08/10/17 04:46 93 16 88/50 (57) 98 08/10/17 04:31 94 16 76/59 (65) 98 08/10/17 04:16 95 17 86/58 (64) 98 08/10/17 04:02 96 18 87/46 (58) 98 08/10/17 04:00 36.4 08/10/17 04:00 40 08/10/17 04:00 97 Mechanical Ventilator 40 08/10/17 03:46 94 17 69/53 (60) 98 08/10/17 03:31 95 16 70/48 (53) 100 08/10/17 03:16 97 17 79/54 (61) 97 08/10/17 03:01 97 18 72/49 (63) 97 08/10/17 02:46 97 16 75/50 (54) 97 08/10/17 02:31 97 17 80/45 (50) 97 08/10/17 02:16 97 16 69/48 (61) 97 08/10/17 02:05 40 08/10/17 02:01 97 14 66/46 (50) 96 08/10/17 01:31 100 14 74/48 (52) 95 08/10/17 01:01 103 19 78/58 (66) 97 08/10/17 00:31 103 17 83/58 (63) 96 08/10/17 00:01 101 19 90/48 (79) 96 08/10/17 00:01 36.5 08/09/17 23:59 97 Mechanical Ventilator 40 08/09/17 23:59 40 08/09/17 23:31 103 19 89/60 (69) 96 08/09/17 23:25 102 20 86/67 (77) 96 08/09/17 23:17 102 18 78/58 (66) 96 08/09/17 23:01 103 19 87/58 (65) 97 08/09/17 22:30 102 18 89/45 (60) 97 Mechanical Ventilator 40 08/09/17 22:20 40 08/09/17 22:00 105 18 103/45 (55) 95 08/09/17 22:00 106 18 88/63 (71) 94 Mechanical Ventilator 40 08/09/17 21:45 105 19 88/63 (70) 95 08/09/17 21:30 106 19 88/62 (67) 95 08/09/17 21:15 104 19 86/57 (63) 95 08/09/17 21:00 105 19 92/59 (66) 94 08/09/17 20:30 105 19 90/65 (71) 94 08/09/17 20:15 106 18 95/58 (81) 95 08/09/17 20:00 106 19 86/56 (75) 94 08/09/17 20:00 40 08/09/17 20:00 94 Mechanical Ventilator 40 08/09/17 20:00 36.7 106 19 86/56 (66) 94 Mechanical Ventilator 40 08/09/17 19:59 40 08/09/17 19:45 106 19 95/45 (83) 94 08/09/17 19:30 105 17 89/57 (63) 95 08/09/17 19:00 109 19 112/40 (57) 91 08/09/17 18:45 109 24 92/64 (74) 94 08/09/17 18:30 106 20 81/58 (66) 94 08/09/17 18:15 107 18 84/62 (67) 94 08/09/17 18:00 105 17 92/55 (62) 96 08/09/17 17:55 30 08/09/17 17:45 105 18 80/58 (62) 98 08/09/17 17:30 106 18 78/57 (67) 97 08/09/17 17:15 108 18 85/61 (69) 95 08/09/17 17:00 106 19 85/61 (73) 97 08/09/17 17:00 106 19 85/61 (69) 97 08/09/17 16:30 105 19 98/37 (57) 97 08/09/17 16:15 105 19 87/50 (62) 97 Mechanical Ventilator 50 08/09/17 16:00 36.7 105 18 101/38 (59) 97 Mechanical Ventilator 50 08/09/17 16:00 97 Mechanical Ventilator 50 08/09/17 16:00 50 08/09/17 16:00 105 18 101/38 (51) 97 Laboratory Results: Last 24 Hours Test 08/09/17 17:10 08/09/17 17:57 08/09/17 22:23 08/09/17 23:52 Bedside Glucose (other) 149 mg/dl 158 mg/dl Troponin I 1.400 ng/ml Venous Blood pH 7.09 Venous Blood Partial Pressure CO2 75 mmHg Venous Blood Partial Pressure O2 57 mmHg Venous Blood HCO3 22 mmol/L Venous Blood Oxygen Saturation 81.9 % Venous Blood Base Excess -8.1 mEq/L Lactic Acid Level 1.3 mmol/L Test 08/09/17 23:54 08/10/17 00:04 08/10/17 05:06 08/10/17 05:35 Hemoglobin 7.6 g/dL 7.4 g/dL Hematocrit 23.9 % 23.0 % Gastric Fluid pH 5-7 Gastric Fluid Occult Blood POS Blood Gas Specimen Type ARTERIAL Blood Gas Sample Site R Radial Blood Gas Patient Temperature 36.4 Bedside Blood Gas pH (LAB) 7.07 Bedside Blood Gas pCO2 (LAB) 73 mmHg Bedside Blood Gas pO2 (LAB) 91 mmHg Bedside Blood Gas HCO3 (LAB) 22 meq/L Bedside Blood Gas Total CO2 24 mEq/l Bedside Blood Gas Base Excess (LAB) -9.0 meq/L Bedside Blood Gas O2 Saturation 93.0 % Oxygen Saturation (Pulse Oximetry) 97 % Frankie Test NOT PERFORMED Oxygen Delivery Device Ventilator Bedside Oxygen Rate (breaths/min) 14 Blood Gas PEEP 5 White Blood Count 18.56 K/uL Red Blood Count 2.47 M/uL Mean Corpuscular Volume 93.1 fL Mean Corpuscular Hemoglobin 30.0 pg Mean Corpuscular Hemoglobin Concent 32.2 g/dl RDW Standard Deviation 62.0 fL RDW Coefficient of Variation 18.2 % Platelet Count 159 K/uL Mean Platelet Volume 9.6 fL Sodium Level 131 mmol/L Potassium Level 3.8 mmol/L Chloride Level 102 mmol/L Carbon Dioxide Level 22 mmol/L Anion Gap 7.0 mmol/L Blood Urea Nitrogen 30 mg/dl Creatinine 1.16 mg/dl Est Creatinine Clear Calc Drug Dose 44.0 ml/min Estimated GFR () 58.9 Estimated GFR (Non- 50.8 BUN/Creatinine Ratio 25.7 Random Glucose 158 mg/dl Calcium Level 7.1 mg/dl Phosphorus Level 4.8 mg/dl Magnesium Level 1.9 mg/dl Ammonia 90.0 umol/L Test 08/10/17 05:43 08/10/17 06:11 08/10/17 07:49 08/10/17 11:43 Bedside Glucose (other) 155 mg/dl Blood Gas Specimen Type ARTERIAL ARTERIAL Blood Gas Sample Site R Radial R Radial Blood Gas Patient Temperature 36.4 36.4 Bedside Blood Gas pH (LAB) 7.10 7.21 Bedside Blood Gas pCO2 (LAB) 66 mmHg 57 mmHg Bedside Blood Gas pO2 (LAB) 80 mmHg 79 mmHg Bedside Blood Gas HCO3 (LAB) 21 meq/L 24 meq/L Bedside Blood Gas Total CO2 23 mEq/l 26 mEq/l Bedside Blood Gas Base Excess (LAB) -9.0 meq/L -4.0 meq/L Bedside Blood Gas O2 Saturation 91.0 % 93.0 % Oxygen Saturation (Pulse Oximetry) 97 % 98 % Frankie Test NOT PERFORMED NOT PERFORMED Oxygen Delivery Device Ventilator Ventilator Bedside Oxygen Rate (breaths/min) 20 24 Blood Gas Minute Ventilation 8.3 12 Blood Gas PEEP 5 5 Blood Gas Tidal Volume 500 Lactic Acid Level 1.3 mmol/L Troponin I 0.403 ng/ml Random Cortisol 35.92 mcg/dl Test 08/10/17 12:20 08/10/17 13:46 Venous Blood pH 7.16 Venous Blood Partial Pressure CO2 66 mmHg Venous Blood Partial Pressure O2 37 mmHg Venous Blood HCO3 23 mmol/L Venous Blood Oxygen Saturation 62.5 % Venous Blood Base Excess -5.9 mEq/L Bedside Glucose (other) 147 mg/dl
[2017-08-10] MEDS ORDERED: FLUCONAZOLE / NSS 200 MG in PREMIXED NSS 100 ML IV SCH (16:00)
[2017-08-10 16:38] LABS: ALBUMIN 2.7 gm/dl (3.4-5.0); TOTAL PROTEIN 6.9 gm/dl (6.4-8.2)
--- NOTE | 2017-08-10 16:49 | DIAGNOSTIC IMAGING REPORT ---
RENAL ULTRASOUND CLINICAL HISTORY: Acute kidney injury. Acidosis. COMPARISON STUDY: CT of the abdomen and pelvis June 07, 2017. TECHNIQUE: Sonography of the kidneys and the urinary bladder was performed. FINDINGS: The right kidney measures 10.4 x 5.2 x 6.3 cm and the left measures 10.5 x 6.1 x 6 cm. Renal echogenicity is increased. There is no hydronephrosis. No calculi or masses are identified by sonography. Moderate to large ascites is incidentally noted. Bladder is collapsed, containing a Nails catheter. IMPRESSION: 1. No hydronephrosis. 2. Increased renal echogenicity which reflect medical renal disease. 3. Moderate to large ascites. Electronically signed by: Kvng Hernandez M.D. 08/10/2017 4:48 PM Dictated Date/Time: 08/10/2017 4:47 PM
[2017-08-10] MEDS ORDERED: DEXTROSE 5% IV PRN (17:00)
[2017-08-10] MEDS ORDERED: PHENYLEPHRINE HCL IV PRN (17:00)
[2017-08-10] MEDS ORDERED: SODIUM CHLORIDE 0.9% IV PRN (17:30)
[2017-08-10] MEDS ORDERED: VASOPRESSIN IV PRN (17:30)
[2017-08-11] VITALS (19 sets, daily range): BP systolic 61–113; BP diastolic 41–71; PULSE 75–88; TEMP 36.1–36.8; O2SAT 94–100
[2017-08-11] MEDS: FENTANYL CITRATE INJ 50 MCG/1 ML 2 ML VIAL IV PRN ×2 (00:48→07:17)
[2017-08-11] MEDS: SODIUM BICARBONATE 8.4% INJ 150 MEQ in DEXTROSE 5% 1000ML 1,000 ML IV SCH (01:29)
[2017-08-11] MEDS: MIDAZOLAM HCL 1 MG/ML 2ML VIAL IV PRN ×2 (02:16→05:45)
[2017-08-11] MEDS: PIPERACILL/TAZOBAC IV 3.375 GM in DEXTROSE 5% 100ML IV SCH ×2 (02:30→09:51)
[2017-08-11] MEDS: LACTULOSE SYRUP 200 GM, WATER, STERILE IRRIG 700 ML, BARCODE IDENTIFIER 1 EA PR SCH ×4 (03:26→11:12)
[2017-08-11] MEDS: UNIT DOSE COMPOUND PO SCH ×2 (03:27→11:12)
[2017-08-11] MEDS: INSULIN ASPART 100 UNITS/ML 3 ML PEN SC SCH ×3 (06:00→12:00)
[2017-08-11 06:13] LABS: HEMATOCRIT 25.1 % (37-47); HEMOGLOBIN 8.3 g/dL (12.0-16.0); MEAN CELL VOLUME 89.3 fL (80-100); MEAN CORPUSCULAR HEMOGLOBIN 29.5 pg (25-34); MEAN CORPUSCULAR HGB CONC 33.1 g/dl (32-36); MEAN PLATELET VOLUME 10.4 fL (7.4-10.4); PLATELET COUNT 112 K/uL (130-400); RED CELL DISTRIBUTION WIDTH CV 17.6 % (11.5-14.5); RED CELL DISTRIBUTION WIDTH SD 57.9 fL (36.4-46.3); WHITE BLOOD COUNT 18.66 K/uL (4.8-10.8)
[2017-08-11] MEDS: METHYLPREDNISOLONE IV 40 MG in SYRINGE 0 ML IV SCH (06:33)
[2017-08-11] MEDS: LEVOTHYROXINE 25 MCG TAB PO SCH (06:33)
[2017-08-11 06:45] LABS: CALCIUM 7.4 mg/dl (8.5-10.1); CREATININE 1.1 mg/dl (0.60-1.20); PHOSPHORUS 2.8 mg/dl (2.5-4.9); POTASSIUM 2.8 mmol/L (3.5-5.1)
[2017-08-11] MEDS: LEValbuterol HFA 15GM INHALER INH SCH ×2 (07:16→11:08)
--- NOTE | 2017-08-11 07:26 | DIAGNOSTIC IMAGING REPORT ---
CHEST ONE VIEW PORTABLE CLINICAL HISTORY: Resp Failure dyspnea COMPARISON STUDY: 08/10/2017 FINDINGS: Endotracheal tube 2 cm both [place]. Mild stable cardiomegaly. Slightly progressive components of pulmonary edema. Nasogastric tube within the stomach. IMPRESSION: 1. Slightly progressive pulmonary edema compared to the prior study. 2. Tubes and lines in appropriate position as noted. The above report was generated using voice recognition software. It may contain grammatical, syntax or spelling errors. Electronically signed by: Sai Juarez M.D. 08/11/2017 7:25 AM Dictated Date/Time: 08/11/2017 7:21 AM
[2017-08-11] MEDS: POTASSIUM CHLR 20 MEQ / WTR 20 MEQ in PREMIXED WATER 100 ML IV SCH ×3 (07:34→11:59)
[2017-08-11] MEDS: RIFAXIMIN TAB 550 MG TAB PO SCH (08:30)
[2017-08-11] MEDS: GABAPENTIN 300 MG CAP PO SCH (08:30)
[2017-08-11] MEDS: THIAMINE HCL INJ 100 MG in SYRINGE 9 ML IV SCH (08:32)
[2017-08-11] MEDS: PANTOprazole INJ 40 MG in SYRINGE 0 ML IV SCH (08:33)
[2017-08-11] MEDS: OSELTAMIVIR PHOSPHATE SUSP 30 MG/5 ML UDP PO SCH (08:44)
[2017-08-11] MEDS ORDERED: MIDAZOLAM 125MG/250ML D5W 250 ML IV PRN (08:45)
[2017-08-11] MEDS ORDERED: FENTANYL 1250MCG/250ML NSS IV PRN (08:45)
[2017-08-11] MEDS: HEPARIN SOD 5000 UNIT/0.5 ML CARP SC SCH (08:45)
[2017-08-11] MEDS ORDERED: PEPTAMEN 1.5 CAL 1000ML BAG PO SCH (11:15)
--- NOTE | 2017-08-11 12:09 | Critical Care Progress Note ---
Critical Care Progress Note Date of Service Aug 11, 2017. ICU Day ICU Day Number: [address] San Subjective No overnight events, becomes extremely agitated with lightening of sedation Objective General: CAM positive, RASS score +1 at times, -2 at others. Appears older than stated age Skin: Cool, dry, Head: Atraumatic Ears, nose, mouth and throat: Endotracheal tube in place Cardiovascular: Normal peripheral perfusion, S1-S2 no murmurs Respiratory: no respiratory distress, scattered rhonchi bilaterally Gastrointestinal: Non distended, nontender Musculoskeletal: No deformity, Assessment & Plan Reason Critically Ill: Acute hypercarbic hypoxic respiratory failure, influenza A, stress-induced cardiomyopathy, PLAN: Neuro: Acute encephalopathy * Ammonia decreased from yesterday [id number] * Increasing sedation requirements converted to continuous infusion * Soft restraints as needed given previous unplanned extubation * Continue lactulose retention enemas, every 8 hours * Discontinuing oral lactulose given vasoactive medication and concern for nonocclusive bowel ischemia -Lactic acid negative at this time Resp: Acute hypercarbic hypoxic respiratory failure * Secondary to influenza A History COPD * Aggressive pulmonary toilet * Decreased respiratory rate today CV: Stress-induced cardiomyopathy * Likely secondary to influenza A * Tolerating phenylephrine at 2.5 and vasopressin * Wean vasoactive's as tolerated Prolonged QTC * Discontinued citalopram Fluids/Renal: Hypokalemia * Repleted with 60 mEq KCl IV, will recheck later today * Discontinue bicarbonate infusion ID: Continue broad-spectrum antibiotics in addition to 5 days of Tamiflu * Tamiflu day 3 of 5 * Vancomycin, Zosyn day day 3/? 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 This is a life/limb threatening event. This includes time spent evaluating patient, direct bedside care, chart review, placing orders, interpretation of diagnostic studies, discussion with consultants, patient, and/or family members regarding treatment decisions, as well as other required patient management activities. This time is exclusive of all separately billable procedures, and teaching time and separate from and in addition to any other critical care service time. Data Medications: Current Inpatient Medications Medications (Trade) Dose Ordered Sig/Shelby Route Start Time Stop Time Status Last Admin Dose Admin Miscellaneous Information (Consult) 1 ea UD PRN N/A 08/08/17 18:00 09/07/17 17:59 Miscellaneous Information (Consult) 1 ea UD PRN N/A 08/08/17 18:00 09/07/17 17:59 Methylprednisolone Sodium Succinate 40 mg/Syringe 0.64 ml @ 1.5 mls/min Q8H IV 08/08/17 22:00 09/07/17 21:59 08/11/17 06:33 1.5 MLS/MIN Folic Acid (Folvite Tab) 1 mg QAM PO 08/09/17 09:00 09/08/17 08:59 08/11/17 08:31 1 MG Gabapentin (Neurontin Cap) 300 mg TID PO 08/08/17 21:00 09/07/17 20:59 08/11/17 08:30 300 MG Hyoscyamine Sulfate (Levsin Tab) 0.125 mg ACHS PRN PO 08/08/17 18:15 09/07/17 18:14 Levothyroxine Sodium (Synthroid Tab) 25 mcg DAILYBB PO 08/09/17 06:00 09/08/17 06:59 08/11/17 06:33 25 MCG Rifaximin (Xifaxan Tab) 550 mg BID PO 08/08/17 21:00 09/07/17 20:59 08/11/17 08:30 550 MG Piperacillin Sod/ Tazobactam Sod 3.375 gm/Dextrose 115 ml @ 28.75 mls/ hr Q8H IV 08/09/17 02:00 08/22/17 19:59 08/11/17 09:51 28.75 MLS/HR Levalbuterol (Xopenex Hfa Inhaler) 2 puffs QID INH 08/09/17 09:00 09/08/17 08:59 08/11/17 11:08 2 PUFFS Insulin Aspart (novoLOG ASPART) SLIDING SCALE If C... Q6 SC 08/09/17 12:00 09/08/17 11:59 Glucose (Glucose 40% Gel) 15-30 GRAMS 15 GRAMS... UD PRN PO 08/09/17 10:15 09/08/17 10:14 Glucose (Glucose Chew Tab) 4-8 Tablets 4 Tabl... UD PRN PO 08/09/17 10:15 09/08/17 10:14 Dextrose (Dextrose 50% 50ML Syringe) 25-50ML OF 50% DW IV FOR... UD PRN IV 08/09/17 10:15 09/08/17 10:14 Glucagon (Glucagon Inj) 1 mg UD PRN SQ 08/09/17 10:15 09/08/17 10:14 Oseltamivir Phosphate (Tamiflu Susp) 30 mg BID PO 08/09/17 21:00 08/14/17 20:59 08/11/17 08:44 30 MG Thiamine HCl 100 mg/Syringe 10 ml @ 2 mls/min QAM IV 08/10/17 09:00 09/09/17 08:59 08/11/17 08:32 2 MLS/MIN Sodium Bicarbonate 150 meq/Dextrose 1,150 ml @ 75 mls/hr [id number] IV 08/10/17 09:45 09/09/17 09:44 08/11/17 01:29 75 MLS/HR Heparin Sodium (Porcine) (Heparin Sq 5000 Unit/0.5ml) 5,000 unit Q12 SC 08/10/17 12:00 09/09/17 11:59 08/11/17 08:45 5,000 UNIT Lactulose/Sterile Water/Barcode Q8H DC 08/10/17 10:00 09/09/17 09:59 08/11/17 11:12 200 GM Miscellaneous (Unit Dose Compound) 1 ea Q8H PO 08/10/17 10:00 09/09/17 09:59 08/11/17 11:12 1 EA Pantoprazole Sodium 40 mg/ Syringe 10 ml @ 5 mls/min Q12 IV 08/10/17 21:00 09/09/17 20:59 08/11/17 08:33 5 MLS/MIN Fluconazole/ Sodium Chloride 200 mg/Prmx 100 ml @ 100 mls/hr Q24H IV 08/10/17 16:00 08/12/17 15:59 08/10/17 15:50 100 MLS/HR Phenylephrine HCl 80 mg/Dextrose 258 ml @ 0 mls/hr Q0M PRN IV 08/10/17 17:00 09/09/17 16:59 08/11/17 04:17 2.5 MLS/HR Vasopressin 50 units/Sodium Chloride 52.5 ml @ 0 mls/hr Q0M PRN IV 08/10/17 17:30 09/09/17 17:29 08/11/17 02:30 2.52 MLS/HR Potassium Chloride 20 meq/ Prmx 100 ml @ 50 mls/hr TODAY@0730,0930,1130 IV 08/11/17 07:30 08/11/17 13:29 08/11/17 09:50 50 MLS/HR Fentanyl Citrate 250 ml @ 0 mls/hr Q0M PRN IV 08/11/17 08:45 08/25/17 08:44 08/11/17 09:35 10 MLS/HR Midazolam HCl 250 ml @ 0 mls/hr Q0M PRN IV 08/11/17 08:45 09/10/17 08:44 08/11/17 09:34 1 MLS/HR Enteral Nutritional Formula (Peptamen 1.5) 1,000 ml UD PO 08/11/17 11:15 09/10/17 11:14 Vital Signs: Date Time Temp Pulse Resp B/P (MAP) Pulse Ox O2 Delivery O2 Flow Rate FiO2 08/11/17 11:10 40 08/11/17 10:00 79 18 98/68 (79) 100 08/11/17 09:31 83 13 113/63 (68) 100 08/11/17 09:15 81 18 89/62 (65) 100 08/11/17 09:00 82 18 89/63 (68) 100 08/11/17 08:02 87 18 61/48 (54) 98 08/11/17 08:00 100 Mechanical Ventilator 40 08/11/17 08:00 36.8 08/11/17 08:00 40 08/11/17 07:22 40 08/11/17 06:00 36.5 78 24 87/58 (68) 100 Mechanical Ventilator 40 08/11/17 05:30 40 08/11/17 04:00 36.6 83 24 99/62 (74) 100 Mechanical Ventilator 40 08/11/17 04:00 40 08/11/17 04:00 100 Mechanical Ventilator 40 08/11/17 02:10 40 08/11/17 02:00 88 24 88/61 (70) 100 Mechanical Ventilator 40 08/11/17 00:00 36.1 85 24 85/63 (70) 100 Mechanical Ventilator 40 08/11/17 00:00 40 08/11/17 00:00 100 Mechanical Ventilator 6.0 40 08/10/17 22:24 40 08/10/17 22:00 87 24 93/53 (66) 100 Mechanical Ventilator 40 08/10/17 21:55 94 18 80/56 (64) 99 Mechanical Ventilator 40 08/10/17 21:46 96 17 109/15 (46) 97 Mechanical Ventilator 40 08/10/17 21:30 86 12 90/51 (64) 100 Mechanical Ventilator 40 08/10/17 21:00 90 24 81/50 (60) 100 Mechanical Ventilator 40 08/10/17 20:46 100 19 90/66 (74) 98 Mechanical Ventilator 40 08/10/17 20:30 94 18 82/51 (61) 97 Mechanical Ventilator 40 08/10/17 20:00 40 08/10/17 20:00 100 Mechanical Ventilator 40 08/10/17 20:00 36.4 86 24 79/57 (64) 100 Mechanical Ventilator 40 08/10/17 19:20 40 08/10/17 16:58 40 08/10/17 16:00 100 Mechanical Ventilator 40 08/10/17 16:00 98 24 87/57 (67) 100 Mechanical Ventilator 40 08/10/17 16:00 40 08/10/17 15:10 40 08/10/17 15:00 36.4 97 24 78/53 (61) 100 Mechanical Ventilator 40 08/10/17 14:30 36.4 102 24 81/63 100 18 14:30 101 24 81/63 (70) 100 08/10/17 14:16 101 17 78/60 (65) 88 08/10/17 14:13 36.3 98 27 90 08/10/17 14:00 90 19 95 08/10/17 13:31 85 24 75/48 (57) 98 08/10/17 13:00 94 12 89/60 (69) 96 08/10/17 12:46 85 24 87/65 (71) 100 08/10/17 12:30 106 24 88/63 (80) 100 08/10/17 12:16 99 25 116/70 (88) 88 08/10/17 12:00 82 24 86/61 (71) 96 08/10/17 12:00 96 Mechanical Ventilator 30 08/10/17 12:00 30 08/10/17 12:00 36.5 08/10/17 11:45 98 24 97/53 (59) 96 Laboratory Results: Last 24 Hours Test 08/10/17 11:43 08/10/17 12:20 08/10/17 13:46 08/10/17 15:46 Lactic Acid Level 1.3 mmol/L 1.6 mmol/L Troponin I 0.403 ng/ml Random Cortisol 35.92 mcg/dl Venous Blood pH 7.16 7.16 Venous Blood Partial Pressure CO2 66 mmHg 64 mmHg Venous Blood Partial Pressure O2 37 mmHg 60 mmHg Venous Blood HCO3 23 mmol/L 22 mmol/L Venous Blood Oxygen Saturation 62.5 % 84.0 % Venous Blood Base Excess -5.9 mEq/L -6.2 mEq/L Bedside Glucose (other) 147 mg/dl Total Bilirubin 1.4 mg/dl Direct Bilirubin 0.6 mg/dl Aspartate Amino Transf (AST/SGOT) 124 U/L Alanine Aminotransferase (ALT/SGPT) 37 U/L Alkaline Phosphatase 35 U/L Total Protein 6.9 gm/dl Albumin 2.7 gm/dl Test 08/10/17 18:36 08/10/17 21:45 08/10/17 23:24 08/11/17 00:16 Bedside Glucose (other) 130 mg/dl 118 mg/dl Random Vancomycin Level 25.9 mcg/ml Arterial Blood pH 7.16 Arterial Blood Partial Pressure CO2 68 mmHg Arterial Blood Partial Pressure O2 69 mm/Hg Arterial Blood HCO3 24 mmol/L Arterial Blood Oxygen Saturation 85.2 % Arterial Blood Base Excess -4.7 mEq/L Arterial Blood Gas Delivery 100% Frankie Test POS Lactic Acid Level 2.1 mmol/L Test 08/11/17 06:02 08/11/17 06:03 08/11/17 06:05 White Blood Count 18.66 K/uL Red Blood Count 2.81 M/uL Hemoglobin 8.3 g/dL Hematocrit 25.1 % Mean Corpuscular Volume 89.3 fL Mean Corpuscular Hemoglobin 29.5 pg Mean Corpuscular Hemoglobin Concent 33.1 g/dl RDW Standard Deviation 57.9 fL RDW Coefficient of Variation 17.6 % Platelet Count 112 K/uL Mean Platelet Volume 10.4 fL Sodium Level 134 mmol/L Potassium Level 2.8 mmol/L Chloride Level 102 mmol/L Carbon Dioxide Level 26 mmol/L Anion Gap 7.0 mmol/L Blood Urea Nitrogen 31 mg/dl Creatinine 1.10 mg/dl Est Creatinine Clear Calc Drug Dose 46.4 ml/min Estimated GFR () 62.8 Estimated GFR (Non- 54.1 BUN/Creatinine Ratio 28.5 Random Glucose 116 mg/dl Lactic Acid Level 1.5 mmol/L Calcium Level 7.4 mg/dl Phosphorus Level 2.8 mg/dl Magnesium Level 2.2 mg/dl Ammonia 69.0 umol/L Random Vancomycin Level 23.8 mcg/ml Bedside Glucose (other) 119 mg/dl Arterial Blood pH 7.30 Arterial Blood Partial Pressure CO2 53 mmHg Arterial Blood Partial Pressure O2 55 mm/Hg Arterial Blood HCO3 25 mmol/L Arterial Blood Oxygen Saturation 85.3 % Arterial Blood Base Excess -1.6 mEq/L Arterial Blood Gas Delivery 40% Frankie Test MIKE
[2017-08-11 12:43] LABS: ALBUMIN 2.7 gm/dl (3.4-5.0); TOTAL PROTEIN 6.5 gm/dl (6.4-8.2)
--- NOTE | 2017-08-11 14:18 | Progress Note ---
Medicine Progress Note Date & Time of Visit: Aug 11, 2017 at 08:30 . Subjective Restless on ventilator. Does not respond or follow commands. No fever. Remains on pressors. . Objective Last 8 Hrs Date Time Temp Pulse Resp B/P (MAP) Pulse Ox O2 Delivery O2 Flow Rate FiO2 08/11/17 13:01 76 18 80/42 (63) 100 08/11/17 12:30 77 12 94/71 (78) 100 08/11/17 12:16 77 12 80/63 (66) 100 08/11/17 12:00 36.4 08/11/17 12:00 100 Mechanical Ventilator 40 08/11/17 12:00 40 08/11/17 11:31 76 8 74/60 (63) 100 08/11/17 11:16 76 17 70/53 (55) 100 08/11/17 11:10 40 08/11/17 11:00 76 8 92/63 (79) 100 08/11/17 10:00 79 18 98/68 (79) 100 08/11/17 09:31 83 13 113/63 (68) 100 08/11/17 09:15 81 18 89/62 (65) 100 08/11/17 09:00 82 18 89/63 (68) 100 08/11/17 08:02 87 18 61/48 (54) 98 08/11/17 08:00 Mechanical Ventilator 40 08/11/17 08:00 100 Mechanical Ventilator 40 08/11/17 08:00 36.8 08/11/17 08:00 40 08/11/17 07:22 40 Physical Exam: General- sedated on ventilator Eyes- periorbital edema ENT- oral ET tube; oral G-tube Neck- right IJ catheter Lungs- less wheezing, few scattered rhonchi Heart- regular, no gallop appreciated Abdomen- slightly distended, soft - Nails catheter draining clear urine Extremities- trace pretibial edema Neuro- unresponsive . Laboratory Results: Last 24 Hours Test 08/10/17 15:46 08/10/17 18:36 08/10/17 21:45 08/10/17 23:24 Venous Blood pH 7.16 Venous Blood Partial Pressure CO2 64 mmHg Venous Blood Partial Pressure O2 60 mmHg Venous Blood HCO3 22 mmol/L Venous Blood Oxygen Saturation 84.0 % Venous Blood Base Excess -6.2 mEq/L Lactic Acid Level 1.6 mmol/L 2.1 mmol/L Total Bilirubin 1.4 mg/dl Direct Bilirubin 0.6 mg/dl Aspartate Amino Transf (AST/SGOT) 124 U/L Alanine Aminotransferase (ALT/SGPT) 37 U/L Alkaline Phosphatase 35 U/L Total Protein 6.9 gm/dl Albumin 2.7 gm/dl Bedside Glucose (other) 130 mg/dl Random Vancomycin Level 25.9 mcg/ml Arterial Blood pH 7.16 Arterial Blood Partial Pressure CO2 68 mmHg Arterial Blood Partial Pressure O2 69 mm/Hg Arterial Blood HCO3 24 mmol/L Arterial Blood Oxygen Saturation 85.2 % Arterial Blood Base Excess -4.7 mEq/L Arterial Blood Gas Delivery 100% Frankie Test POS Test 08/11/17 00:16 08/11/17 06:02 08/11/17 06:03 08/11/17 06:05 Bedside Glucose (other) 118 mg/dl 119 mg/dl White Blood Count 18.66 K/uL Red Blood Count 2.81 M/uL Hemoglobin 8.3 g/dL Hematocrit 25.1 % Mean Corpuscular Volume 89.3 fL Mean Corpuscular Hemoglobin 29.5 pg Mean Corpuscular Hemoglobin Concent 33.1 g/dl RDW Standard Deviation 57.9 fL RDW Coefficient of Variation 17.6 % Platelet Count 112 K/uL Mean Platelet Volume 10.4 fL Sodium Level 134 mmol/L Potassium Level 2.8 mmol/L Chloride Level 102 mmol/L Carbon Dioxide Level 26 mmol/L Anion Gap 7.0 mmol/L Blood Urea Nitrogen 31 mg/dl Creatinine 1.10 mg/dl Est Creatinine Clear Calc Drug Dose 46.4 ml/min Estimated GFR () 62.8 Estimated GFR (Non- 54.1 BUN/Creatinine Ratio 28.5 Random Glucose 116 mg/dl Lactic Acid Level 1.5 mmol/L Calcium Level 7.4 mg/dl Phosphorus Level 2.8 mg/dl Magnesium Level 2.2 mg/dl Ammonia 69.0 umol/L Random Vancomycin Level 23.8 mcg/ml Arterial Blood pH 7.30 Arterial Blood Partial Pressure CO2 53 mmHg Arterial Blood Partial Pressure O2 55 mm/Hg Arterial Blood HCO3 25 mmol/L Arterial Blood Oxygen Saturation 85.3 % Arterial Blood Base Excess -1.6 mEq/L Arterial Blood Gas Delivery 40% Frankie Test MIKE Test 08/11/17 12:09 08/11/17 13:49 Total Bilirubin 1.5 mg/dl Direct Bilirubin 0.6 mg/dl Aspartate Amino Transf (AST/SGOT) 99 U/L Alanine Aminotransferase (ALT/SGPT) 38 U/L Alkaline Phosphatase 36 U/L Total Protein 6.5 gm/dl Albumin 2.7 gm/dl Date/Time Source Procedure Growth Status 08/10/17 15:46 Blood Fungal Smear - Final Resulted 08/10/17 15:46 Blood Fungal Culture Pending Resulted Assessment & Plan CARDIOVASCULAR Serum troponin 0.096 --> 0.821 --> 1.4.. Echo demonstrated apical hypokinesis and dilatation consistent with takotsubo cardiomyopathy versus ischemic heart disease, overall LVEF 40-45%. Ongoing hypotension requiring fluid boluses and pressor support. Management per Critical Care Medicine. RESPIRATORY Acute hypoxic respiratory failure requiring intubation/mechanical ventilation. Underlying chronic hypoxic respiratory failure due to COPD, on home O2. Superimposed influenza A and possible pneumonia. Management per Critical Care Medicine. GI History of cirrhosis (attributed to hepatitis C + alcohol) with portal hypertension, S/P TIPS. Total bilirubin 1.6. INR 1.2. Ammonia 36 --> 90. Peritoneal WBC's 166. GI consulted. Receiving lactulose. IV pantoprazole for stress ulcer prophylaxis. RENAL / LYTES Serum creatinine 0.98 --> 1.16 --> 1.04. Mixed metabolic + respiratory acidosis. Mg at time of admission was 1.60; received replacement. Na today = 134. K today = 2.8. Follow. ENDO Glycemic management per protocol. ID Possible sepsis. Procalcitonin 7.92. [employer] swab for influenza A positive; receiving oseltamivir. Receiving vancomycin and piperacillin/tazobactam for possible bacterial pneumonia. Procalcitonin 7.92. Urine does not appear to be infected. Does not appear to have SBP. ID consulted. HEME Hgb on admission 7.9, fell as low as 7.4. Received 1 unit pRBC's. Hgb this morning 8.3. Underlying cirrhosis. No gross GI bleeding. Follow H/H. NEURO Encephalopathy, probable multifactorial metabolic encephalopathy. Follow. HISTORY OF ALCOHOL ABUSE IV thiamine. VTE PROPHYLAXIS SQ enoxaparin transitioned to SQ heparin. RESUSCITATION STATUS Critical Care team discussed code status with family yesterday. Patient has 2 advanced chronic illnesses (severe COPD and cirrhosis with portal hypertension), now with superimposed acute critical illness. Prognosis is poor. Code status changed to DNR. DISPOSITION Critically ill with poor prognosis. Discharge disposition to be determined. Consultants: [facility] Nephrology ADDENDUM: Care coordinated with [facility]. Patient is critically ill with very poor prognosis. Underlying advanced COPD and cirrhosis. Family has opted for terminal extubation. . Consultants: [facility] . Current Inpatient Medications: Current Inpatient Medications Medications (Trade) Dose Ordered Sig/Shelby Route Start Time Stop Time Status Last Admin Dose Admin Dextrose (Dextrose 50% 50ML Syringe) 25-50ML OF 50% DW IV FOR... UD PRN IV 08/09/17 10:15 09/08/17 10:14 Glucagon (Glucagon Inj) 1 mg UD PRN SQ 08/09/17 10:15 09/08/17 10:14 Fentanyl Citrate 250 ml @ 0 mls/hr Q0M PRN IV 08/11/17 08:45 08/25/17 08:44 08/11/17 09:35 10 MLS/HR Midazolam HCl 250 ml @ 0 mls/hr Q0M PRN IV 08/11/17 08:45 09/10/17 08:44 08/11/17 09:34 1 MLS/HR
[2017-08-11 14:22] LABS: CALCIUM 7.8 mg/dl (8.5-10.1); CREATININE 1.04 mg/dl (0.60-1.20)
[2017-08-11] MEDS ORDERED: MoRPHine SULFATE 2 MG/ML CARP IV PRN (14:30)
[2017-08-11] MEDS ORDERED: MoRPHine SULF/NSS INJ 1 MG/ML 250 ML BTL ONE (15:16)
[2017-08-11] MEDS ORDERED: MoRPHine SULF/NSS 250MG/250ML 250 ML IV PRN (15:30)
--- NOTE | 2017-08-11 15:53 | Critical Care Progress Note ---
Critical Care Progress Note Date of Service Aug 11, 2017. Critical Care Progress Note In a bedside discussion with all 3 of the patient's daughters, Cathleen, Siria Castellon, Tea as well as her significant other Mac. I discussed current status, treatment, prognosis. Everyone is in agreement that the patient would not want to undergo heroic measures, nor continue life-sustaining treatment. They reiterated that the patient was fiercely independent and always refused recommendations for placement for physical rehab, and her current course has likely exceeded the treatment time which she would consider acceptable. Accordingly the family are all in agreement with discontinuation of life- sustaining treatment and to transition to patient maximizing the patient's comfort. I have discussed the case with the hospitalist.
[2017-08-11] MEDS ORDERED: FLUCONAZOLE / NSS 200 MG in PREMIXED NSS 100 ML IV SCH (16:00)
--- NOTE | 2017-08-11 20:01 | Infectious Disease Progress Nt ---
Progress Note Date of Service Aug 11, 2017. Subjective Pt evaluation today including: physical exam, chart review, lab review, review of studies, conversation w/ service delivery management consultant, review of inpatient medication list Patient remains ventilator dependent. Clinical history this is had meeting with family, decision for comfort care only has been made. All Other Systems: Reviewed and Negative Medications Current Inpatient Medications Medications (Trade) Dose Ordered Sig/Shelby Route Start Time Stop Time Status Last Admin Dose Admin Dextrose (Dextrose 50% 50ML Syringe) 25-50ML OF 50% DW IV FOR... UD PRN IV 08/09/17 10:15 09/08/17 10:14 Glucagon (Glucagon Inj) 1 mg UD PRN SQ 08/09/17 10:15 09/08/17 10:14 Midazolam HCl 250 ml @ 0 mls/hr Q0M PRN IV 08/11/17 08:45 09/10/17 08:44 08/11/17 09:34 1 MLS/HR Morphine Sulfate (MoRPHine SULFATE INJ) 2 mg Q1H PRN IV 08/11/17 14:30 08/25/17 14:29 08/11/17 15:10 2 MG Morphine Sulfate/ Dextrose 250 ml @ 0 mls/hr Q0M PRN IV 08/11/17 15:30 08/25/17 15:29 Objective Vital Signs Date Time Temp Pulse Resp B/P (MAP) Pulse Ox O2 Delivery O2 Flow Rate FiO2 08/11/17 14:31 75 11 61/41 (46) 94 08/11/17 14:00 77 18 85/59 (62) 100 08/11/17 13:01 76 18 80/42 (63) 100 08/11/17 12:30 77 12 94/71 (78) 100 08/11/17 12:16 77 12 80/63 (66) 100 08/11/17 12:00 36.4 08/11/17 12:00 100 Mechanical Ventilator 40 08/11/17 12:00 40 08/11/17 11:31 76 8 74/60 (63) 100 08/11/17 11:16 76 17 70/53 (55) 100 08/11/17 11:10 40 08/11/17 11:00 76 8 92/63 (79) 100 08/11/17 10:00 79 18 98/68 (79) 100 08/11/17 09:31 83 13 113/63 (68) 100 08/11/17 09:15 81 18 89/62 (65) 100 08/11/17 09:00 82 18 89/63 (68) 100 08/11/17 08:02 87 18 61/48 (54) 98 08/11/17 08:00 Mechanical Ventilator 40 08/11/17 08:00 100 Mechanical Ventilator 40 08/11/17 08:00 36.8 08/11/17 08:00 40 08/11/17 07:22 40 08/11/17 06:00 36.5 78 24 87/58 (68) 100 Mechanical Ventilator 40 08/11/17 05:30 40 08/11/17 04:00 36.6 83 24 99/62 (74) 100 Mechanical Ventilator 40 08/11/17 04:00 40 08/11/17 04:00 100 Mechanical Ventilator 40 08/11/17 02:10 40 08/11/17 02:00 88 24 88/61 (70) 100 Mechanical Ventilator 40 08/11/17 00:00 36.1 85 24 85/63 (70) 100 Mechanical Ventilator 40 08/11/17 00:00 40 08/11/17 00:00 100 Mechanical Ventilator 6.0 40 08/10/17 22:24 40 08/10/17 22:00 87 24 93/53 (66) 100 Mechanical Ventilator 40 08/10/17 21:55 94 18 80/56 (64) 99 Mechanical Ventilator 40 08/10/17 21:46 96 17 109/15 (46) 97 Mechanical Ventilator 40 08/10/17 21:30 86 12 90/51 (64) 100 Mechanical Ventilator 40 08/10/17 21:00 90 24 81/50 (60) 100 Mechanical Ventilator 40 08/10/17 20:46 100 19 90/66 (74) 98 Mechanical Ventilator 40 08/10/17 20:30 94 18 82/51 (61) 97 Mechanical Ventilator 40 08/10/17 20:00 40 08/10/17 20:00 100 Mechanical Ventilator 40 08/10/17 20:00 36.4 86 24 79/57 (64) 100 Mechanical Ventilator 40 Physical Exam General Appearance: no apparent distress, + pertinent finding (Chronically ill- appearing) Eyes: normal inspection, sclerae normal ENT: pharynx normal, + pertinent finding (Endotracheal and feeding tube in place) Neck: supple, no adenopathy, trachea midline Respiratory/Chest: chest non-tender, no respiratory distress, no accessory muscle use, + rales, + rhonchi Cardiovascular: regular rate, rhythm, no gallop, no murmur Abdomen: normal bowel sounds, non tender, soft, no organomegaly Extremities: no calf tenderness, normal capillary refill Neurologic/Psychiatric: + pertinent finding (Sedated on ventilator) Skin: normal color, warm/dry, no rash Lymphatic: no adenopathy Laboratory Results Last 24 Hours Test 08/10/17 21:45 08/10/17 23:24 08/11/17 00:16 08/11/17 06:02 Random Vancomycin Level 25.9 mcg/ml 23.8 mcg/ml Arterial Blood pH 7.16 Arterial Blood Partial Pressure CO2 68 mmHg Arterial Blood Partial Pressure O2 69 mm/Hg Arterial Blood HCO3 24 mmol/L Arterial Blood Oxygen Saturation 85.2 % Arterial Blood Base Excess -4.7 mEq/L Arterial Blood Gas Delivery 100% Frankie Test POS Lactic Acid Level 2.1 mmol/L 1.5 mmol/L Bedside Glucose (other) 118 mg/dl White Blood Count 18.66 K/uL Red Blood Count 2.81 M/uL Hemoglobin 8.3 g/dL Hematocrit 25.1 % Mean Corpuscular Volume 89.3 fL Mean Corpuscular Hemoglobin 29.5 pg Mean Corpuscular Hemoglobin Concent 33.1 g/dl RDW Standard Deviation 57.9 fL RDW Coefficient of Variation 17.6 % Platelet Count 112 K/uL Mean Platelet Volume 10.4 fL Sodium Level 134 mmol/L Potassium Level 2.8 mmol/L Chloride Level 102 mmol/L Carbon Dioxide Level 26 mmol/L Anion Gap 7.0 mmol/L Blood Urea Nitrogen 31 mg/dl Creatinine 1.10 mg/dl Est Creatinine Clear Calc Drug Dose 46.4 ml/min Estimated GFR () 62.8 Estimated GFR (Non- 54.1 BUN/Creatinine Ratio 28.5 Random Glucose 116 mg/dl Calcium Level 7.4 mg/dl Phosphorus Level 2.8 mg/dl Magnesium Level 2.2 mg/dl Ammonia 69.0 umol/L Test 08/11/17 06:03 08/11/17 06:05 08/11/17 12:09 08/11/17 13:49 Bedside Glucose (other) 119 mg/dl Arterial Blood pH 7.30 Arterial Blood Partial Pressure CO2 53 mmHg Arterial Blood Partial Pressure O2 55 mm/Hg Arterial Blood HCO3 25 mmol/L Arterial Blood Oxygen Saturation 85.3 % Arterial Blood Base Excess -1.6 mEq/L Arterial Blood Gas Delivery 40% Frankie Test MIKE Total Bilirubin 1.5 mg/dl Direct Bilirubin 0.6 mg/dl Aspartate Amino Transf (AST/SGOT) 99 U/L Alanine Aminotransferase (ALT/SGPT) 38 U/L Alkaline Phosphatase 36 U/L Total Protein 6.5 gm/dl Albumin 2.7 gm/dl Sodium Level 135 mmol/L Potassium Level 4.0 mmol/L Chloride Level 103 mmol/L Carbon Dioxide Level 26 mmol/L Anion Gap 6.0 mmol/L Blood Urea Nitrogen 32 mg/dl Creatinine 1.04 mg/dl Est Creatinine Clear Calc Drug Dose 49.1 ml/min Estimated GFR () 67.2 Estimated GFR (Non- 57.9 BUN/Creatinine Ratio 30.7 Random Glucose 108 mg/dl Calcium Level 7.8 mg/dl Random Vancomycin Level 21.5 mcg/ml Assessment and Plan (1) COPD (chronic obstructive pulmonary disease) Status: Acute (2) Respiratory failure Status: Acute (3) Cirrhosis Status: Chronic (4) Alcohol abuse Status: Chronic (5) Sepsis, unspecified organism Status: Acute 62-year-old female with cirrhosis, history of recurrent SBP, history of C difficile, status post TIPS, now with clinical picture of sepsis with respiratory failure requiring intubation. Peritoneal fluid not suggestive of recurrent infection, and no obvious focal infiltrate on chest x-ray. Given underlying end-stage liver disease, lack of improvement, continued need for intubation, patient has now been transition to comfort care only. Given this, we will discontinue ID follow-up at this time. Please contact us if any further input required.
[2017-08-11] MEDS ORDERED: SCOPOLAMINE 1.5 MG TDSY TD SCH (23:30)
--- NOTE | 2017-08-12 07:46 | Progress Note ---
Medicine Progress Note Date & Time of Visit: Aug 12, 2017 at 07:40 . Subjective Extubated last evening and placed on morphine infusion for comfort care. Family is at bedside and stayed during the night. No signs of pain or other discomfort. . Objective Physical Exam: General-obtunded, no apparent distress Eyes- periorbital edema Neck- right IJ catheter Lungs- shallow respirations, diffuse mild wheezing,scattered rhonchi Heart- regular, no gallop appreciated Abdomen- slightly distended, soft, nontender Extremities- edema of upper and lower extremities Neuro- unresponsive . Laboratory Results: Last 24 Hours Test 08/11/17 12:09 08/11/17 13:49 Total Bilirubin 1.5 mg/dl Direct Bilirubin 0.6 mg/dl Aspartate Amino Transf (AST/SGOT) 99 U/L Alanine Aminotransferase (ALT/SGPT) 38 U/L Alkaline Phosphatase 36 U/L Total Protein 6.5 gm/dl Albumin 2.7 gm/dl Sodium Level 135 mmol/L Potassium Level 4.0 mmol/L Chloride Level 103 mmol/L Carbon Dioxide Level 26 mmol/L Anion Gap 6.0 mmol/L Blood Urea Nitrogen 32 mg/dl Creatinine 1.04 mg/dl Est Creatinine Clear Calc Drug Dose 49.1 ml/min Estimated GFR () 67.2 Estimated GFR (Non- 57.9 BUN/Creatinine Ratio 30.7 Random Glucose 108 mg/dl Calcium Level 7.8 mg/dl Random Vancomycin Level 21.5 mcg/ml Assessment & Plan Chronic advanced COPD and cirrhosis of liver with acute critical illness ( influenza, acute on chronic respiratory failure, cardiomyopathy, and other issues as outlined in previous notes). Prognosis very poor. After discussions with the family it has been decided that patient would not want continued extraordinary measures given the circumstances and her poor prognosis. Extubated and placed on morphine infusion. Comfortable. Continue end-of-life palliative care. . Consultants: [facility] . Current Inpatient Medications: Current Inpatient Medications Medications (Trade) Dose Ordered Sig/Shelby Route Start Time Stop Time Status Last Admin Dose Admin Dextrose (Dextrose 50% 50ML Syringe) 25-50ML OF 50% DW IV FOR... UD PRN IV 08/09/17 10:15 09/08/17 10:14 Glucagon (Glucagon Inj) 1 mg UD PRN SQ 08/09/17 10:15 09/08/17 10:14 Midazolam HCl 250 ml @ 0 mls/hr Q0M PRN IV 08/11/17 08:45 09/10/17 08:44 08/11/17 09:34 1 MLS/HR Morphine Sulfate (MoRPHine SULFATE INJ) 2 mg Q1H PRN IV 08/11/17 14:30 08/25/17 14:29 08/11/17 15:10 2 MG Morphine Sulfate/ Dextrose 250 ml @ 0 mls/hr Q0M PRN IV 08/11/17 15:30 08/25/17 15:29 Scopolamine (Transderm-Scop Patch) 1.5 mg Q72H TD 08/11/17 23:30 09/10/17 23:29 08/11/17 23:26 1.5 MG Miscellaneous (Remove Transderm-Scop Patch) 1 ea Q72H N/A 08/14/17 23:29 09/13/17 23:28 Miscellaneous Information (Check Scopolamine Patch Placement) 1 ea QS N/A 08/12/17 08:00 09/11/17 07:59
[2017-08-12] MEDS: CHECK SCOPOLAMINE PATCH PLACEMENT SCH ×2 (08:20→16:00)
--- NOTE | 2017-08-12 08:21 | Critical Care Progress Note ---
Critical Care Progress Note Date of Service Aug 12, 2017. Critical Care Progress Note Family at bedside, patient comfortable: Exhibiting no signs of outward distress Objective: Decreased perfusion capillary refill greater than 3 seconds. Slow deep respirations, rate approximately 4 Impression: Acute hypoxic hypercarbic respiratory failure secondary to influenza A with concrement and COPD secondary tobacco abuse End-stage liver disease status post hip secondary to alcoholic cirrhosis. Patient is an end-stage terminal condition without chance of meaningful recovery. Family in agreement that patient would not want continued heroic measures, was extubated yesterday and transition into comfort measures. Stable for downgrade out of ICU
[2017-08-13] MEDS: CHECK SCOPOLAMINE PATCH PLACEMENT SCH ×3 (00:42→16:13)
--- NOTE | 2017-08-13 08:05 | Progress Note ---
Medicine Progress Note Date & Time of Visit: Aug 13, 2017 at 07:40 . Subjective Obtunded. Appears to be comfortable. No new concerns reported by nursing staff. . Objective Physical Exam: General-obtunded, no apparent distress Eyes- periorbital edema Neck- right IJ catheter Lungs- shallow, slow respirations, scattered rhonchi Cardiovascular- regular, weak radial pulse, good capillary refill fingers Abdomen- slightly distended, soft, nontender Extremities- edema of upper and lower extremities Neuro- unresponsive . Assessment & Plan Chronic advanced COPD and cirrhosis of liver with superimposed acute critical illness (influenza, acute on chronic respiratory failure, cardiomyopathy, and other issues as outlined in previous notes). Prognosis very poor. After discussions with the family it was been decided that patient would not want continued extraordinary measures given the circumstances and her poor prognosis. Extubated and placed on morphine infusion. Comfortable. Continue end-of-life palliative care. . Consultants: [facility] . Current Inpatient Medications: Current Inpatient Medications Medications (Trade) Dose Ordered Sig/Shelby Route Start Time Stop Time Status Last Admin Dose Admin Morphine Sulfate (MoRPHine SULFATE INJ) 2 mg Q1H PRN IV 08/11/17 14:30 08/25/17 14:29 08/11/17 15:10 2 MG Morphine Sulfate/ Dextrose 250 ml @ 0 mls/hr Q0M PRN IV 08/11/17 15:30 08/25/17 15:29 Scopolamine (Transderm-Scop Patch) 1.5 mg Q72H TD 08/11/17 23:30 09/10/17 23:29 08/11/17 23:26 1.5 MG Miscellaneous (Remove Transderm-Scop Patch) 1 ea Q72H N/A 08/14/17 23:29 09/13/17 23:28 Miscellaneous Information (Check Scopolamine Patch Placement) 1 ea QS N/A 08/12/17 08:00 09/11/17 07:59 08/13/17 07:48 1 EA
[2017-08-14] MEDS: CHECK SCOPOLAMINE PATCH PLACEMENT SCH
[2017-08-14 00:30] VITALS: BP 76/50; PULSE 80; TEMP 35; O2SAT 96
[2017-08-14 08:00] VITALS: O2SAT 96
[2017-08-14] MEDS ORDERED: MoRPHine SULF/NSS 250MG/250ML 250 ML IV PRN (09:15)
[2017-08-14 10:01] LABS: HEMATOCRIT 29.2 % (37-47); HEMOGLOBIN 8.9 g/dL (12.0-16.0); MEAN CELL VOLUME 97.7 fL (80-100); MEAN CORPUSCULAR HEMOGLOBIN 29.8 pg (25-34); MEAN CORPUSCULAR HGB CONC 30.5 g/dl (32-36); MEAN PLATELET VOLUME 10.2 fL (7.4-10.4); NUCLEATED RED BLOOD CELL ABS 0.05 K/uL (0-0); PLATELET COUNT 116 K/uL (130-400); RED CELL DISTRIBUTION WIDTH CV 18.3 % (11.5-14.5); RED CELL DISTRIBUTION WIDTH SD 65.5 fL (36.4-46.3); WHITE BLOOD COUNT 16.02 K/uL (4.8-10.8)
[2017-08-14 10:11] LABS: BASO % 0.1 %; BASO ABS # 0.01 K/uL (0-0.2); IG# 0.09 K/uL (0.00-0.02); LYMPH % 10.4 %; LYMPH ABS # 1.67 K/uL (1.2-3.4); MONO % 5.4 %; MONO ABS # 0.87 K/uL (0.11-0.59); NEUT % 83.5 %; NEUT ABS # 13.38 K/uL (1.4-6.5)
[2017-08-14 10:15] LABS: ALBUMIN 2.8 gm/dl (3.4-5.0); CALCIUM 8.1 mg/dl (8.5-10.1); POTASSIUM 5.2 mmol/L (3.5-5.1); TOTAL PROTEIN 6.8 gm/dl (6.4-8.2)
[2017-08-14] MEDS ORDERED: ALBUT/IPRATROP 3MG/0.5MG NEB 3 ML VIAL INH PRN (10:45)
[2017-08-14] MEDS ORDERED: PIPERACILL/TAZOBAC CONSULT ACTIVE PRN (10:45)
[2017-08-14] MEDS ORDERED: D5W AND NSS 1,000 ML IV SCH (10:45)
--- NOTE | 2017-08-14 10:57 | DIAGNOSTIC IMAGING REPORT ---
SINGLE VIEW CHEST CLINICAL HISTORY: COPD. Pneumonia. FINDINGS: An AP, portable, upright chest radiograph is compared to study dated 08/11/2017. The examination is degraded by portable technique and patient rotation. A right internal jugular central venous catheter is unchanged in position. Enteric and endotracheal tubes have been removed. The heart is enlarged and there is atherosclerotic calcification of the thoracic aorta. There is pulmonary vascular congestion and interstitial edema. Emphysematous change is suspected. There is nonspecific interstitial thickening. There are layering pleural effusions with bibasilar consolidation. No pneumothorax is seen. The skeletal structures are osteopenic. The bony thorax is grossly intact. IMPRESSION: 1. Cardiomegaly with evidence of congestive failure and interstitial edema. This has modestly improved from 08/11/2017. 2. Endotracheal and enteric tubes have been removed. 3. Layering pleural effusions with bibasilar consolidation. This likely represents atelectasis. Correlate clinically for evidence of superimposed pneumonia. Electronically signed by: Oleg Owens M.D. 08/14/2017 10:55 AM Dictated Date/Time: 08/14/2017 10:53 AM
[2017-08-14] MEDS ORDERED: PIPERACILL/TAZOBAC IV 3.375 GM in DEXTROSE 5% 100ML 100 ML IV ONE (11:00)
--- NOTE | 2017-08-14 16:27 | Progress Note ---
Medicine Progress Note Date & Time of Visit: Aug 14, 2017 . Subjective Initially seen around 08:30 this morning and reassessed throughout the day. Patient remains obtunded on morphine infusion at 3 mg / hr and appears to be comfortable. Met with family. Patient has been on comfort measures for the past few days. She was expected to pass away quickly due to her multiple serious medical problems, but has hung on longer than expected. Family is asking that labs and chest x-ray be checked and that she be placed back on antibiotics and IV fluids to see if she gets any better. . Objective Physical Exam: General-obtunded, no apparent distress Eyes- periorbital edema Neck- right IJ catheter Lungs- shallow respirations, bilateral rhonchi Cardiovascular- regular, weak radial pulse, good capillary refill fingers Abdomen- slightly distended, soft, nontender Extremities- edema of upper and lower extremities Neuro- obtunded . Laboratory Results: Last 24 Hours Test 08/14/17 09:29 White Blood Count 16.02 K/uL Red Blood Count 2.99 M/uL Hemoglobin 8.9 g/dL Hematocrit 29.2 % Mean Corpuscular Volume 97.7 fL Mean Corpuscular Hemoglobin 29.8 pg Mean Corpuscular Hemoglobin Concent 30.5 g/dl Platelet Count 116 K/uL Mean Platelet Volume 10.2 fL Neutrophils (%) (Auto) 83.5 % Lymphocytes (%) (Auto) 10.4 % Monocytes (%) (Auto) 5.4 % Eosinophils (%) (Auto) 0.0 % Basophils (%) (Auto) 0.1 % Neutrophils # (Auto) 13.38 K/uL Lymphocytes # (Auto) 1.67 K/uL Monocytes # (Auto) 0.87 K/uL Eosinophils # (Auto) 0.00 K/uL Basophils # (Auto) 0.01 K/uL RDW Standard Deviation 65.5 fL RDW Coefficient of Variation 18.3 % Immature Granulocyte % (Auto) 0.6 % Immature Granulocyte # (Auto) 0.09 K/uL Nucleated RBC Absolute Count (auto) 0.05 K/uL Nucleated Red Blood Cells % 0.3 % Pappenheimer Bodies 1+ Echinocytes 1+ Acanthocytes 2+ Sodium Level 136 mmol/L Potassium Level 5.2 mmol/L Chloride Level 104 mmol/L Carbon Dioxide Level 26 mmol/L Anion Gap 6.0 mmol/L Blood Urea Nitrogen 66 mg/dl Creatinine 3.00 mg/dl Est Creatinine Clear Calc Drug Dose 17.0 ml/min Estimated GFR () 18.7 Estimated GFR (Non- 16.1 BUN/Creatinine Ratio 21.8 Random Glucose 42 mg/dl Calcium Level 8.1 mg/dl Total Bilirubin 1.6 mg/dl Aspartate Amino Transf (AST/SGOT) 483 U/L Alanine Aminotransferase (ALT/SGPT) 132 U/L Alkaline Phosphatase 59 U/L Total Protein 6.8 gm/dl Albumin 2.8 gm/dl Globulin 4.0 gm/dl Albumin/Globulin Ratio 0.7 Assessment & Plan Chronic advanced COPD and cirrhosis of liver with superimposed acute critical illness (influenza, acute on chronic respiratory failure, cardiomyopathy, and other issues as outlined in previous notes). Prognosis very poor. After discussions with the family on 08/11/17 it was decided that patient would not want continued extraordinary measures given the circumstances and her poor prognosis. She was extubated and placed on comfort measures with morphine infusion. Patient's family requested reassessment today because she has hung on longer than expected. They were updated on her current condition. Prognosis remains poor. Repeat labs and chest x-ray were obtained per family's request. WBC 16,000. Chest x-ray showed bibasilar densities- probable atelectasis vs infiltrate. Afebrile. No definite pneumonia at this time, but will resume IV antibiotic therapy with piperacillin / tazobactam. Creatinine 3, K 5.2, glucose 42. Started on IV D5 NSS. Chest x-ray showed pulmonary edema. Diuretics not ordered due to hypotension and worsening renal function. Morphine infusion decreased from 3 to 2 mg / hour per family's request. . Consultants: [facility] . Current Inpatient Medications: Current Inpatient Medications Medications (Trade) Dose Ordered Sig/Shelby Route Start Time Stop Time Status Last Admin Dose Admin Morphine Sulfate (MoRPHine SULFATE INJ) 2 mg Q1H PRN IV 08/11/17 14:30 08/25/17 14:29 08/11/17 15:10 2 MG Scopolamine (Transderm-Scop Patch) 1.5 mg Q72H TD 08/11/17 23:30 09/10/17 23:29 08/11/17 23:26 1.5 MG Miscellaneous (Remove Transderm-Scop Patch) 1 ea Q72H N/A 08/14/17 23:29 09/13/17 23:28 Miscellaneous Information (Check Scopolamine Patch Placement) 1 ea QS N/A 08/12/17 08:00 09/11/17 07:59 08/14/17 00:00 1 EA Heparin Sodium (Porcine) (Heparin 10 Unit/ ml 5 ml Flush) 5 ml PRN PRN FLUSH 08/14/17 01:30 09/13/17 01:29 08/14/17 08:33 10 ML Morphine Sulfate/ Dextrose 250 ml @ 0 mls/hr Q0M PRN IV 08/14/17 09:15 08/25/17 15:29 Dextrose/Sodium Chloride 1,000 ml @ 75 mls/hr [id number] IV 08/14/17 10:45 09/13/17 10:44 08/14/17 11:15 75 MLS/HR Miscellaneous Information (Consult) 1 ea UD PRN N/A 08/14/17 10:45 09/13/17 10:44 Albuterol/ Ipratropium (Duoneb) 3 ml Q4H PRN INH 08/14/17 10:45 09/13/17 10:44 Piperacillin Sod/ Tazobactam Sod 3.375 gm/Dextrose 115 ml @ 28.75 mls/ hr Q12H IV 08/14/17 20:00 08/21/17 19:59
--- NOTE | 2017-08-14 16:28 | Progress Note ---
Progress Note Date of Service Aug 14, 2017. Progress Note PRONOUNCEMENT Patient ceased to breathe at 1602. Pupils midposition / fixed. No heart sounds or respirations. Family members present. Cause of : respiratory failure influenza B .
--- NOTE | 2017-08-14 17:33 | Discharge Summary ---
Discharge Summary Date of Service Aug 14, 2017. Discharge Summary Admission Date: Aug 08, 2017 at 18:45 Discharge Date: Aug 14, 2017 Discharge Disposition: Principal Diagnosis: acute on chronic hypoxic and hypercarbic respiratory failure influenza A exacerbation of COPD OTHER ACUTE / SECONDARY DIAGNOSES: hypotension (cardiogenic vs septic shock) cardiomyopathy (ischemic vs takotsubo cardiomyopathy) pulmonary edema possible sepsis (blood, urine, peritoneal fluid cultures negative) encephalopathy acute kidney injury . Secondary Diagnoses/Problems: Chronic and Resolved Medical Problems: (1) Anemia Status: Chronic (2) Ascites Status: Chronic (3) Chronic respiratory failure Status: Chronic (4) Cirrhosis of liver Status: Chronic (5) COPD, severe Status: Chronic (6) Depression Status: Chronic (7) Hepatic encephalopathy Status: Chronic (8) History of hepatitis C Status: Chronic (9) Orthostatic hypotension Status: Chronic (10) Portal hypertension Status: Chronic Surgical Problems: (1) H/O exploratory laparotomy Status: Chronic (2) History of appendectomy Status: Chronic (3) History of tubal ligation Status: Chronic . Procedures: cardiac monitoring IV meds endotracheal intubation mechanical ventilation central venous catheter placement echocardiogram US abdomen paracentesis . Consultations: [facility] Nephrology . Admission Information HPI (per Admitting provider): This is a 62 year old female with a PMH of alcoholic liver cirrhosis and recurrent ascites, paracentesis - s/p TIPS procedure in June 2017, COPD, ongoing tobacco abuse - presents with worsening shortness of breath. EMS called and she was placed on CPAP en route - with better oxygen saturation. Continued to be short of breath during my exam; Bipap was placed, but patient was desaturating. She was confused during my exam as well and only answered questions intermittently. CXR performed showing worsening congestion. Suggestion Clerk consulted and patient was intubated in the ER prior to being taken to the ICU. . Physical Exam (per Admitting): General Appearance: + moderate distress, + severe distress, + pertinent finding (confused, lethargic, bipap on during exam) Head: normocephalic, atraumatic Respiratory/Chest: + respiratory distress, + decreased breath sounds, + accessory muscle use, + crackles Cardiovascular: no edema, + tachycardia Abdomen/GI: normal bowel sounds, non tender, soft Extremities/Musculoskelatal: + pertinent finding (trace pitting edema b/l LE ) Neurologic/Psych: + disoriented, + pertinent finding (lethargic, confused) Hospital Course Patient was a 62 YO female with chronic respiratory failure due to COPD, cirrhosis of liver with recurrent ascites and hepatic encephalopathy, and other problems as noted. Presented to ED on 08/08/17 with acute respiratory distress. BiPAP initiated for ventilatory support, but remained hypoxic. Intubated in ED and admitted to ICU. Received broad spectrum antibiotic coverage for possible sepsis, although blood , urine, and peritoneal fluid cultures were negative. Influenza A positive. Received oseltamivir. Complicated ICU course with ongoing respiratory failure, failure to wean, possible sepsis, hypotension requiring pressor support, cardiomyopathy, and other problems as detailed in progress notes. Prognosis determined to be poor due to multi-system failure and severe underlying comorbidities. Critical Care Team met with family on 08/11/17. It was felt that patient would not want ongoing extraordinary measures continued given the circumstances. She was extubated and placed on comfort measures. Patient ceased to breath at 16:02 on 08/14/17 with family present. Cause of : acute on chronic respiratory failure due to influenza A and exacerbation of COPD possible sepsis . Discharge Instructions N/A . Additional Copies To Jeremy Maki M.D.
[2017-08-14] MEDS ORDERED: PIPERACILL/TAZOBAC IV 3.375 GM in DEXTROSE 5% 100ML IV SCH (20:00)
== END 2017-08-14 18:43 | disposition expired | DRG 871 ==
LOC: EDBD 15:43 → C.EDC 15:44 → C.MSICU 18:45 → EDBEDREQSVC 18:48 → ENRESERV 18:55 → C.4E 08-12 08:56
PROVIDERS: ADMIT Family Medicine; ATTEND Hospitalist
PROC: 0BH17EZ Insertion of Endotracheal Airway into Trachea, Via Natural or Artificial Opening (ICD-10-PCS; principal; 2017-08-08)
PROC: 0W9G3ZX Drainage of Peritoneal Cavity, Percutaneous Approach, Diagnostic (ICD-10-PCS; 2017-08-08)
PROC: 05HM33Z Insertion of Infusion Device into Right Internal Jugular Vein, Percutaneous Approach (ICD-10-PCS; 2017-08-08)
PROC: 5A1945Z Respiratory Ventilation, 24-96 Consecutive Hours (ICD-10-PCS; 2017-08-08)
PROC: 0BH17EZ Insertion of Endotracheal Airway into Trachea, Via Natural or Artificial Opening (ICD-10-PCS; 2017-08-09)
DX: A41.9 Sepsis, unspecified organism (principal); J96.21 Acute and chronic respiratory failure with hypoxia; G93.41 Metabolic encephalopathy; J96.22 Acute and chronic respiratory failure with hypercapnia; J44.1 Chronic obstructive pulmonary disease with (acute) exacerbation; I51.81 Takotsubo syndrome; N17.9 Acute kidney failure, unspecified; J10.1 Influenza due to other identified influenza virus with other respiratory manifestations; Z51.5 Encounter for palliative care; K70.31 Alcoholic cirrhosis of liver with ascites; D63.8 Anemia in other chronic diseases classified elsewhere; B18.2 Chronic viral hepatitis C; F32.9 Major depressive disorder, single episode, unspecified; F17.200 Nicotine dependence, unspecified, uncomplicated; Z66 Do not resuscitate; Z79.899 Other long term (current) drug therapy